=== PATIENT | female | born 1970 | race Caucasian/White ===

== ENCOUNTER → 2017-08-30 11:12 | Outpatient (CLI) | payer OTHER, SELFPAY ==
--- NOTE | 2017-08-30 11:21 | MRI_ITS ---
STUDY: MRI RIGHT SHOULDER REASON FOR EXAM: Female, 47 years old. Pain. Numbness. History of thoracic outlet decompression surgery. TECHNIQUE: Standardized fat and water weighted pulse sequences were obtained in all 3 orthogonal planes. COMPARISON: None. FINDINGS: Normal supraspinatus tendon. There is infraspinatus tendinosis with tendon thickening, but without a demonstrated tendon tear. Normal subscapularis tendon. Normal teres minor tendon. Normal supraspinatus muscle. Normal infraspinatus muscle. Normal subscapularis muscle. Normal teres minor muscle. Normal glenohumeral articulation. Normal humeral head and visualized proximal humerus. Normal biceps labral complex. Normal intracapsular long biceps tendon. Tearing of the anterior labrum, series 3 image 01/23 -03/25. Normal capsulo- ligamentous complex. Normal rotator interval. Normal acromioclavicular articulation. There is a Type II morphology (curved), with a neutral orientation. There is no subacromial-subdeltoid bursal fluid. Normal visualized coracohumeral and coracoacromial ligaments. Normal quadrilateral space. Normal axillary space. Normal deltoid muscle. Normal trapezius muscle. MRI/Upper Ext Joint Only(Routine) IMPRESSION: No rotator cuff tear. Tendinosis of the infraspinatus. Tear of the anterior labrum. Electronically Signed: Jj Daily MD at 20:37 EDT , Service support ,
== END ==
DX: S46.001A Unspecified injury of muscle(s) and tendon(s) of the rotator cuff of right shoulder, initial encounter (principal)
CPT/HCPCS: 73221

== ENCOUNTER → 2018-02-22 09:52 | Outpatient (CLI) | payer BC, MEDICAID, SELFPAY ==
--- NOTE | 2018-02-22 09:57 | NM_ITS ---
CLINICAL: 47-year-old female with reported history of thyroid nodularity. I-123 THYROID UPTAKE and SCAN COMPARISON: Thyroid ultrasound report 06/14/2013 FINDINGS: The patient was administered a 300 uCi I-123 capsule by mouth. The 4-hour I-123 radioactive iodine thyroidal uptake was calculated to be 12.6 % (normal 5 to 25 %). The 24-hour I-123 radioactive iodine thyroidal uptake was calculated to be 37.1 % (normal 5 to 40 %). The I-123 thyroid scan demonstrates relatively homogeneous radiopharmaceutical concentration throughout both lobes of a U-shaped thyroid gland. There are no colloidal parenchymal hypofunctioning cold nodules noted in either lobe of the thyroid gland. NM/Thyroid Uptake Single or Mult IMPRESSION: 1. NORMAL 4- and 24-hour I-123 radioactive iodine thyroidal uptakes. 2. The I-123 thyroid scan is consistent with stage I nodular colloid goiter secondary to the presence of isthmus visualization and the demonstrated U-shaped thyroid gland. (Lamonte et al, J Nucl Med 32: 1455, 1990). 3. No dominant hypofunctioning-cold nodules are identified. Electronically Signed: Santy Campbell DO at 22:48 EDT Tel , Service support ,
== END ==
PROVIDERS: Visit Provider Otolaryngology
DX: E04.2 Nontoxic multinodular goiter (principal)
CPT/HCPCS: 78012; A9516

== ENCOUNTER → 2018-09-01 11:03 | Outpatient (CLI) | payer BC, MEDICAID, SELFPAY ==
--- NOTE | 2018-09-01 11:30 | MRI_ITS ---
STUDY: MRI BRAIN WITH AND WITHOUT CONTRAST (ATTENTION INTERNAL AUDITORY CANALS - I.A.C.'s) REASON FOR EXAM: Female, 48 years old. Worsening dizziness, generalized headaches. TECHNIQUE: Standardized multiplanar fat and water weighted pulse sequences were obtained. 15 IV Dotarem was administered for the contrast portion of the examination. COMPARISON: None. FINDINGS: Normal bilateral temporal bones. Normal bilateral internal auditory canals. There is no demonstrated intracanalicular or cisternal vestibular schwannoma (acoustic neuroma). There is no enhancement of the bilateral VIIth or VIIIth cranial nerves. Normal bilateral cochlea, vestibules and semicircular canals. Normal size of the ventricles and extra-axial spaces for the patient's age. Normal white matter tracts of the supratentorial brain. Normal bilateral basal ganglia. Normal thalami. Normal flow voids within the major intracranial circulation suggesting patency by spin echo criteria. Normal venous enhancement. There is no enhancing intra-axial or extra-axial abnormality. There is no extra-axial fluid accumulation. Normal sella turcica, pituitary gland, infundibular stalk, optic chiasm and hypothalamus. Normal tectal plate and pineal gland. Normal midbrain, edith and medulla. Normal cerebellum. Normal basal cisterns. No demonstrated orbital abnormality, within the constraints of a routine brain study. Normal visualized paranasal sinuses. Normal calvarium and skull base. Normal visualized soft tissue structures. Normal visualized upper cervical spine. MRI/Brain W/WO Contrast IMPRESSION: Normal unenhanced and enhanced MRI of the bilateral internal auditory canals (I.A.C's). Electronically Signed: Jenny Carlos MD at 23:56 EDT Tel , Service support ,
--- NOTE | 2018-09-01 12:20 | NURSING ---
THIS RN CALLED TO MRI TO EVALUATE PT WITH C/O REDNESS TO CHEST WITH ITCHING. REDNESS AND ITCHING ISOLATED TO CHEST, DENIES ANY OTHER SYMPTOMS OF DIFFICULTY SWALLOWING OR SOB. PT DECLINED EVALUATION IN ED. IN AGREEMENT TO TAKE BENADRYL AT HOME IF FELT NECESSARY. WILL BE DRIVING PT HOME AND WITH PT AT HOME.
== END ==
PROVIDERS: Family Provider Nurse Practitioner Adult Health; PCP Nurse Practitioner Adult Health; Referring Provider Otolaryngology; Visit Provider Otolaryngology
DX: R42 Dizziness and giddiness (principal)
CPT/HCPCS: 70553; A9575

== ENCOUNTER → 2018-11-16 13:59 | Outpatient (CLI) | payer OTHER, SELFPAY ==
--- NOTE | 2018-11-16 14:08 | EKG12_ITS ---
Test Reason : PRE OP Blood Pressure : / mmHG Vent. Rate : 078 BPM Atrial Rate : 078 BPM P-R Int : 140 ms QRS Dur : 074 ms QT Int : 374 ms P-R-T Axes : 048 078 053 degrees QTc Int : 426 ms Normal sinus rhythm Normal ECG Confirmed by TEMO RUSS ([id number]), social media editor MALGORZATA SHIPLEY ([id number]) on 11/17/2018 10:00:05 AM Referred By: Tucker Carroll Confirmed By:HARRIS RUSS
[2018-11-16 15:18] LABS: Hemoglobin 12.6 g/dl (12.0-15.0); Mean Corp Hgb Conc 34.1 g/gl (32-36); Mean Corpuscular Hgb 30.9 pg (27.0-32.0); Mean Corpuscular Volume 90.7 fL (81-99); Mean Platelet Vol. 10.4 fl (6.2-12.0); Platelet Count 316 K/mm3 (150-450); RBC Distribution Width CV 11.7 % (11.6-14.6); RBC Distribution Width SD 37.9 fl (35.1-43.9); Red Blood Count 4.08 M/mm3 (4.2-5.4); White Blood Count 10.7 K/mm3 (4.4-11.0)
[2018-11-16 15:20] LABS: Scan Indicated on CBC? Y/N NO
[2018-11-16 16:06] LABS: Anion Gap 6 (5-15); BUN 17 mg/dL (7-18); BUN/Creat Ratio 20.3 RATIO (10-20); Calcium,Total 8.8 mg/dL (8.5-10.1); Chloride 106 mmol/L (98-107); Creatinine, Serum 0.84 mg/dL (0.55-1.02); EST Glomerular Filtration Rate 78 mL/min (>60); Est Glom Filt Rate - Afr Amer 94 mL/min (>60); Glucose 87 mg/dL (74-106); Potassium 3.5 mmol/L (3.5-5.1); Sodium Level 141 mmol/L (136-145)
== END ==
PROVIDERS: Family Provider Nurse Practitioner Adult Health; PCP Nurse Practitioner Adult Health; Referring Provider Physician Assistant; Visit Provider Physician Assistant
DX: I10 Essential (primary) hypertension (principal); Z01.810 Encounter for preprocedural cardiovascular examination
CPT/HCPCS: 36415; 80048; 85027; 93005

== ENCOUNTER 2019-11-23 05:34 | Day surgery (SDC) | payer OTHER, SELFPAY ==
[2019-11-23] VITALS (8 sets, daily range): BP systolic 106–123; BP diastolic 67–85; PULSE 72–82; RESP 14–16; TEMP 36.4–37.1; O2SAT 97–100; BMI 24.0
[2019-11-23] MEDS: Lactated Ringers 1,000 ML 100 ML IV (06:33)
--- NOTE | 2019-11-23 07:44 | PCM.OPRPT ---
Report of Operation Date of Procedure: 11/23/19 Pre-Operative Diagnosis: Post op adhesive capsulitis right shoulder Post-Operative Diagnosis: same Surgery/Procedure Performed:: PAZ right shoulder Type of Anesthesia:: General Anesthesiologist: Tu Cevallos - Admximena VTE Documentation VTE Present on Admission: No VTE Mechan Device Prophylaxis: SCD's, Thigh High BISHNU Hose VTE Pharm Prophylaxis ordered?: No Reason prophylaxis not ordered:: Treatment Not Indicated
== END 2019-11-23 08:21 | disposition home or self-care (01) ==
LOC: SDC 05:37 → AC 05:38
PROVIDERS: Anesthesiology; PCP Nurse Practitioner Adult Health; Referring Provider Orthopaedic Surgery; Visit Provider Orthopaedic Surgery
PROC: (CPT 23700; principal; 2019-11-23 07:25)
DX: M75.01 Adhesive capsulitis of right shoulder (principal); Z11.59 Encounter for screening for other viral diseases; Z87.891 Personal history of nicotine dependence
CPT/HCPCS: 23700; 87635; G2023; J7120; J0702; U0003

== ENCOUNTER → 2019-12-24 09:19 | Outpatient (CLI) | payer OTHER, SELFPAY ==
[2019-11-23 06:20] VITALS: BMI 24.0
[2019-12-24 11:00] LABS: Anion Gap 4 (5-15); BUN 10 mg/dL (7-18); BUN/Creat Ratio 13.3 RATIO (10-20); Calcium,Total 8.4 mg/dL (8.5-10.1); Chloride 114 mmol/L (98-107); Creatinine, Serum 0.75 mg/dL (0.55-1.02); EST Glomerular Filtration Rate 88 mL/min (>60); Est Glom Filt Rate - Afr Amer 106 mL/min (>60); Glucose 97 mg/dL (74-106); Potassium 3.5 mmol/L (3.5-5.1); Sodium Level 143 mmol/L (136-145)
== END ==
PROVIDERS: PCP Nurse Practitioner Adult Health; Referring Provider Nurse Practitioner Family; Visit Provider Nurse Practitioner Family
DX: Z79.899 Other long term (current) drug therapy (principal)
CPT/HCPCS: 36415; 80048

== ENCOUNTER → 2020-04-08 09:25 | Outpatient (CLI) | payer BC, SELFPAY ==
[2020-03-07 10:35] VITALS: BMI 24.0
[2020-04-08 09:59] LABS: Erythrocyte Sedimentation Rate 1 mm/hr (0-20)
[2020-04-08 10:01] LABS: Absolute Lymphocyte Count 1.92 X10^3/uL (0.83-4.51); Absolute Neutrophil Count 8.1 X10^3/uL (2.0-7.7); Basophil# 0.05 X10^3/uL; Basophil% 0.5 % (0-1); Eosinophil# 0.04 X10^3/uL; Eosinophils% 0.4 % (0-5); Hematocrit 40.1 % (37-47); Hemoglobin 12.6 g/dL (12.0-15.0); Lymphocyte # 1.92 X10^3/ul (4.0); Lymphocyte % 18.2 % (19-41); Mean Corp Hgb Conc 31.4 g/dL (32-36); Mean Corpuscular Hgb 31.7 pg (27.0-32.0); Mean Corpuscular Volume 100.8 fL (81-99); Mean Platelet Vol. 9.6 fl (6.2-12.0); Monocyte% 2.8 % (0-10); NRBC Flagged by Analyzer 0 % (0-5); Neutrophil # 8.06 X10^3/uL (2.7-7.7); Neutrophil % 76.2 % (47-70); Platelet Count 389 K/mm3 (150-450); RBC Distribution Width CV 13.8 % (11.6-14.6); RBC Distribution Width SD 51.4 fl (35.1-43.9); Red Blood Count 3.98 M/mm3 (4.2-5.4); White Blood Count 10.6 K/mm3 (4.4-11.0)
[2020-04-08 10:32] LABS: ALB/GLOB Ratio 0.9 RATIO (0.9-2.4); AST(SGOT) 15 U/L (15-37); Alanine Aminotransfer ALT/SGPT 25 U/L (13-56); Albumin, Serum 3.5 g/dL (3.2-5.0); Alkaline Phosphatase 62 U/L (45-117); Anion Gap 4 (5-15); BUN 11 mg/dL (7-18); BUN/Creat Ratio 11.4 RATIO (10-20); Calcium,Total 8.6 mg/dL (8.5-10.1); Chloride 105 mmol/L (98-107); Creatinine, Serum 0.96 mg/dL (0.55-1.02); EST Glomerular Filtration Rate 66 mL/min (>60); Est Glom Filt Rate - Afr Amer 80 mL/min (>60); Globulin 3.7 g/dL (2.2-4.2); Glucose 148 mg/dL (74-106); Potassium 4.1 mmol/L (3.5-5.1); Protein, Total 7.2 g/dL (6.4-8.2); Sodium Level 139 mmol/L (136-145)
== END ==
PROVIDERS: PCP Internal Medicine
DX: K50.90 Crohn's disease, unspecified, without complications (principal)
CPT/HCPCS: 36415; 80053; 85025; 85652

== ENCOUNTER → 2020-05-28 13:05 | Outpatient (CLI) | payer BC, SELFPAY ==
[2020-03-07 10:35] VITALS: BMI 24.0
[2020-06-01 16:07] LABS: QNTFERON TB Mitogen Value > 10.00 IU/mL (.); QNTFERON TB Nil Value 0.05 IU/mL (.); QNTFERON TB1+ Ag Value 0.09 IU/mL (.); QNTFERON TB2+ Ag Value 0.06 IU/mL (.)
[2020-06-02 09:41] LABS: QNTIFERON TB Positive Criteria Negative (Negative)
== END ==
PROVIDERS: PCP Internal Medicine
DX: K50.90 Crohn's disease, unspecified, without complications (principal); S50.851A Superficial foreign body of right forearm, initial encounter; Z11.7 Encounter for testing for latent tuberculosis infection
CPT/HCPCS: 36415; 86480

== ENCOUNTER → 2020-07-03 12:55 | Outpatient (CLI) | payer BC, SELFPAY ==
[2020-06-13 10:57] VITALS: BMI 23.6
--- NOTE | 2020-07-03 13:05 | BI_ITS ---
MAMMOGRAPHY - BILATERAL SCREENING REASON FOR EXAM: Female, 50 years old. Routine annual screening examination. PERTINENT HISTORY: Sister with breast cancer. Grandmother with breast cancer. History of bilateral excisional breast biopsies. TECHNIQUE: Digital bilateral breast tish (3D mammographic acquisition) in the CC and MLO projections. 2-D mediolateral oblique (MLO) and craniocaudad (CC) views of both breasts were obtained. CAD: Full Field Digital Mammography with Computer Added Detection was performed. COMPARISON: Comparison is made with prior abdomen examination dated 05/10/2019. FINDINGS: Breast Composition: The breasts are extremely dense, which lowers the sensitivity of mammography. There are no dominant masses or suspicious calcifications. No other significant abnormalities are identified. There has been no significant change since the prior study. BI/SCRN MAMM (CAD)W/TISH BILAT IMPRESSION: Stable bilateral screening mammogram. Yearly follow-up mammogram recommended. (A) ASSESSMENT CATEGORY: BIRADS Category 1: Negative. A letter regarding these results will be sent to the patient by the facility within 30 days. Approximately 10% of breast cancers are not detected by mammography. A normal mammogram should not delay biopsy of a clinically suspicious abnormality. [id number] Electronically Signed: Franck Verdugo MD at 8:39 EST , Service support ,
--- NOTE | 2020-07-03 13:06 | BD_ITS ---
STUDY: DUAL ENERGY X-RAY ABSORPTIOMETRY / DXA REASON FOR EXAM: Female, 50 years old. 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 COMPARISON: None. FINDINGS: Lumbar Spine (L1-L4): g/cm2 (1.151) / T-score (-0.1) / Z-score (0.1) Findings are suggestive of normal bone density with a low fracture risk. Left Femur Total: g/cm2 (0.945) / T-score (-0.5) / Z-score (-0.1) Left Femoral Neck: g/cm2 (0.835) / T-score (-1.5) / Z-score (-0.8) Right Femur Total: g/cm2 (1.035) / T-score (0.2) / Z-score (0.6) Right Femoral Neck: g/cm2 (0.910) / T-score (-0.9) / Z-score (0.2) BD/Dexa Bone Density Study IMPRESSION: The patient is considered osteopenic as outlined below according to World [employer] Organization (WHO) criteria with a low fracture risk. Reference Information: The T-score is the number of standard deviations above or below the standard which is normal for young adults at their peak bone mineral density. The World Health Organization (WHO) interprets the T-scores as follows: Above -1 Normal bone density Between -1 and -2.5 Osteopenia Equal to / or below -2.5 Osteoporosis As a practical clinical guideline, osteopenia may be graded as follows: Mild -1 through -1.5 Moderate -1.6 through -2.0 Severe -2.1 through -2.4 The Z-score is the number of standard deviations above or below age-matched controls. A Z-score of less than -1.5 would be considered abnormal. References: 1. NIH Osteoporosis and Related Bone Diseases www osteo.org 2. International Society for Clinical Densitometry www iscd.org 3. National Osteoporosis Foundation www nof.org Electronically Signed: Franck Verdugo MD at 14:38 EST , Service support ,
== END ==
PROVIDERS: PCP Internal Medicine; Referring Provider Internal Medicine; Visit Provider Internal Medicine
DX: Z12.31 Encounter for screening mammogram for malignant neoplasm of breast (principal); Z80.3 Family history of malignant neoplasm of breast; Z79.52 Long term (current) use of systemic steroids
CPT/HCPCS: 77063; 77067; 77080

== ENCOUNTER → 2020-07-11 11:34 | Outpatient (CLI) | payer BC, SELFPAY ==
[2020-07-11 10:59] VITALS: BMI 25.8
[2020-07-11 12:25] LABS: Erythrocyte Sedimentation Rate < 1 mm/hr (0-30)
[2020-07-11 12:27] LABS: Absolute Lymphocyte Count 1.75 X10^3/uL (0.83-4.51); Absolute Neutrophil Count 6.4 X10^3/uL (2.0-7.7); Basophil# 0.03 X10^3/uL; Basophil% 0.4 % (0-1); Hematocrit 39.8 % (37-47); Lymphocyte # 1.75 X10^3/ul (4.0); Lymphocyte % 20.6 % (19-41); Mean Corp Hgb Conc 32.7 g/dL (32-36); Mean Corpuscular Hgb 30.5 pg (27.0-32.0); Mean Corpuscular Volume 93.4 fL (81-99); Mean Platelet Vol. 10.1 fl (6.2-12.0); Monocyte# 0.23 X10^3/uL; Monocyte% 2.7 % (0-10); NRBC Flagged by Analyzer 0 % (0-5); Neutrophil % 75.4 % (47-70); Platelet Count 309 K/mm3 (150-450); RBC Distribution Width CV 12.3 % (11.6-14.6); RBC Distribution Width SD 42.2 fl (35.1-43.9); Red Blood Count 4.26 M/mm3 (4.2-5.4); White Blood Count 8.5 K/mm3 (4.4-11.0)
[2020-07-11 13:10] LABS: ALB/GLOB Ratio 1.1 RATIO (0.9-2.4); AST(SGOT) 20 U/L (15-37); Alanine Aminotransfer ALT/SGPT 30 U/L (13-56); Albumin, Serum 3.7 g/dL (3.2-5.0); Alkaline Phosphatase 61 U/L (45-117); Anion Gap 5 (5-15); BUN 15 mg/dL (7-18); BUN/Creat Ratio 14.4 RATIO (10-20); Calcium,Total 9.2 mg/dL (8.5-10.1); Chloride 102 mmol/L (98-107); Creatinine, Serum 1.04 mg/dL (0.55-1.02); EST Glomerular Filtration Rate 60 mL/min (>60); Est Glom Filt Rate - Afr Amer 73 mL/min (>60); Globulin 3.4 g/dL (2.2-4.2); Glucose 108 mg/dL (74-106); Potassium 3.9 mmol/L (3.5-5.1); Protein, Total 7.1 g/dL (6.4-8.2); Sodium Level 138 mmol/L (136-145)
== END ==
PROVIDERS: PCP Internal Medicine
DX: K50.90 Crohn's disease, unspecified, without complications (principal)
CPT/HCPCS: 36415; 80053; 85025; 85652

== ENCOUNTER → 2020-10-21 13:06 | Outpatient (CLI) | payer BC, SELFPAY ==
[2020-10-10 10:22] VITALS: BMI 24.0
[2020-10-21 15:28] LABS: Absolute Lymphocyte Count 3.01 X10^3/uL (0.83-4.51); Absolute Neutrophil Count 2.3 X10^3/uL (2.0-7.7); Basophil# 0.03 X10^3/uL; Basophil% 0.5 % (0-1); Eosinophil# 0.07 X10^3/uL; Eosinophils% 1.2 % (0-5); Hematocrit 36.9 % (37-47); Hemoglobin 12.2 g/dL (12.0-15.0); Lymphocyte # 3.01 X10^3/ul (0.83-4.51); Lymphocyte % 50.9 % (19-41); Mean Corp Hgb Conc 33.1 g/dL (32-36); Mean Corpuscular Volume 90.9 fL (81-99); Mean Platelet Vol. 10.4 fl (6.2-12.0); Monocyte# 0.46 X10^3/uL; Monocyte% 7.8 % (0-10); NRBC Flagged by Analyzer 0 % (0-5); Neutrophil # 2.33 X10^3/uL (2.7-7.7); Neutrophil % 39.4 % (47-70); Platelet Count 313 K/mm3 (150-450); RBC Distribution Width CV 11.9 % (11.6-14.6); Red Blood Count 4.06 M/mm3 (4.2-5.4); White Blood Count 5.9 K/mm3 (4.4-11.0)
[2020-10-21 15:45] LABS: ALB/GLOB Ratio 1.2 RATIO (0.9-2.4); AST(SGOT) 22 U/L (15-37); Alanine Aminotransfer ALT/SGPT 24 U/L (13-56); Albumin, Serum 3.8 g/dL (3.2-5.0); Alkaline Phosphatase 52 U/L (45-117); Anion Gap 4 (5-15); BUN 13 mg/dL (7-18); BUN/Creat Ratio 15.2 RATIO (10-20); Calcium,Total 8.8 mg/dL (8.5-10.1); Chloride 106 mmol/L (98-107); Creatinine, Serum 0.86 mg/dL (0.55-1.02); EST Glomerular Filtration Rate 75 mL/min (>60); Est Glom Filt Rate - Afr Amer 91 mL/min (>60); Globulin 3.1 g/dL (2.2-4.2); Glucose 80 mg/dL (74-106); Potassium 3.8 mmol/L (3.5-5.1); Protein, Total 6.9 g/dL (6.4-8.2); Sodium Level 141 mmol/L (136-145)
[2020-10-21 15:51] LABS: Erythrocyte Sedimentation Rate < 1 mm/hr (0-30)
== END ==
PROVIDERS: PCP Internal Medicine
DX: K50.90 Crohn's disease, unspecified, without complications (principal)
CPT/HCPCS: 36415; 80053; 85025; 85652

== ENCOUNTER → 2020-11-18 10:03 | Outpatient (CLI) | payer OTHER, BC, SELFPAY ==
[2020-10-10 10:22] VITALS: BMI 24.0
[2020-11-11 10:41] VITALS: BMI 24.0
--- NOTE | 2020-11-18 11:00 | RAD_ITS ---
CLINICAL HISTORY: Female, 50 years old. Right shoulder pain. Superior glenoid labral tear. PROCEDURE: ARTHROGRAM - RIGHT SHOULDER. CONSENT: The procedure as well as the benefits and possible complications including infection and bleeding were expanded to the patient. Informed consent was obtained. FLUOROSCOPY TIME (if supplied): (30 seconds) minutes/seconds Injection Information: 10 cc of dilute MRI contrast. Number of images obtained: 4 TECHNIQUE: (All elements of maximal sterile barrier technique followed, including US elements as applicable) The patient was in the supine position. Skin was prepped and draped in the usual sterile fashion. Following local anesthetic application in the direct fluoroscopic guidance, a 22-gauge spinal needle was placed into the shoulder joint. 2 cc of ISOVUE 300 was injected for localization. Following this, 10 cc of dilute MRI contrast was injected. The patient tolerated the procedure well. RAD/Arthrogram Shoulder w/ MRI IMPRESSION: Successful right shoulder arthrogram for MRI examination. The patient tolerated the procedure well. Electronically Signed: Franck Verdugo MD at 12:16 EDT , Service support ,
--- NOTE | 2020-11-18 11:30 | MRI_ITS ---
STUDY: MR RIGHT SHOULDER ARTHROGRAPHY REASON FOR EXAM: Right shoulder pain extending into the scapula since 2011, prior surgeries. TECHNIQUE: Standardized fat and water weighted pulse sequences were obtained in all 3 orthogonal planes after intra-articular instillation of 0.08 mL of dilute Dotarem. COMPARISON: MRI images 08/30/2017 and arthrogram images preceding the MRI. FINDINGS: There is mild supraspinatus and infraspinatus tendinosis (T2 sagittal images 6, 7) without intravasation of contrast to indicate tendon tear. Normal subscapularis tendon. Normal teres minor tendon. Normal supraspinatus muscle. Normal infraspinatus muscle. Normal subscapularis muscle. Normal teres minor muscle. Normal glenohumeral articulation. There is an anchor in the superior aspect of the humeral head. The biceps tenodesis appears intact. Normal labrum. Normal capsulo- ligamentous complex. Normal rotator interval. Status post subacromial decompression/excision of the distal clavicle. There is no subacromial-subdeltoid bursal fluid. Normal deltoid muscle. Normal trapezius muscle. MRI/Upper Ext Jt Only W/Contrast IMPRESSION: Mild supraspinatus and infraspinatus tendinosis without demonstrated rotator cuff tear. Intact biceps tenodesis. No demonstrated labral tear. Electronically Signed: Ronal Rodriguez MD at 12:36 EDT Tel , Service support ,
== END ==
PROVIDERS: PCP Internal Medicine; Visit Provider Orthopaedic Surgery
DX: S43.431A Superior glenoid labrum lesion of right shoulder, initial encounter (principal)
CPT/HCPCS: 23350; 73222; 77002; A9575; Q9967

== ENCOUNTER → 2021-02-10 13:41 | Outpatient (CLI) | payer BC, SELFPAY | PROVIDERS: PCP Internal Medicine; Referring Provider Internal Medicine; Visit Provider Internal Medicine | DX: J06.9 Acute upper respiratory infection, unspecified (principal) | CPT/HCPCS: 87635; U0005; U0003 ==

== ENCOUNTER → 2021-03-13 15:34 | Outpatient (CLI) | payer BC, SELFPAY ==
[2021-03-13 17:04] LABS: AST(SGOT) 26 U/L (15-37); Alanine Aminotransfer ALT/SGPT 34 U/L (13-56); Albumin, Serum 3.6 g/dL (3.2-5.0); Alkaline Phosphatase 57 U/L (45-117); Anion Gap 4 (5-15); BUN 18 mg/dL (7-18); BUN/Creat Ratio 21.7 RATIO (10-20); Calcium,Total 8.8 mg/dL (8.5-10.1); Chloride 107 mmol/L (98-107); Creatinine, Serum 0.83 mg/dL (0.55-1.02); EST Glomerular Filtration Rate 78 mL/min (>60); Est Glom Filt Rate - Afr Amer 94 mL/min (>60); Globulin 3.6 g/dL (2.2-4.2); Glucose 88 mg/dL (74-106); Potassium 4.1 mmol/L (3.5-5.1); Protein, Total 7.2 g/dL (6.4-8.2); Sodium Level 141 mmol/L (136-145); T4 Free Direct 0.69 ng/dL (0.76-1.46); Thyroid Stim Hormone (TSH) 0.73 uIU/mL (0.358-3.74)
[2021-03-13 17:05] LABS: BNP,B-Type NATRIURETIC PEPTIDE 7.5 pg/mL (0-100)
== END ==
PROVIDERS: PCP Internal Medicine; Referring Provider Internal Medicine; Visit Provider Internal Medicine
DX: Z13.29 Encounter for screening for other suspected endocrine disorder (principal); R60.9 Edema, unspecified; K51.90 Ulcerative colitis, unspecified, without complications
CPT/HCPCS: 36415; 80053; 83880; 84439; 84443

== ENCOUNTER → 2021-04-03 12:12 | Outpatient (CLI) | payer BC, SELFPAY ==
[2021-04-03 15:05] LABS: Erythrocyte Sedimentation Rate 2 mm/hr (0-30)
[2021-04-03 15:06] LABS: Absolute Lymphocyte Count 2.47 X10^3/uL (0.83-4.51); Absolute Neutrophil Count 2.6 X10^3/uL (2.0-7.7); Basophil# 0.03 X10^3/uL; Basophil% 0.5 % (0-1); Eosinophil# 0.18 X10^3/uL; Eosinophils% 3.2 % (0-5); Hematocrit 38.4 % (37-47); Hemoglobin 12.6 g/dL (12.0-15.0); Lymphocyte # 2.47 X10^3/ul (0.83-4.51); Lymphocyte % 43.4 % (19-41); Mean Corp Hgb Conc 32.8 g/dL (32-36); Mean Corpuscular Hgb 30.4 pg (27.0-32.0); Mean Corpuscular Volume 92.5 fL (81-99); Mean Platelet Vol. 10.9 fl (6.2-12.0); Monocyte# 0.43 X10^3/uL; Monocyte% 7.6 % (0-10); NRBC Flagged by Analyzer 0 % (0-5); Neutrophil # 2.56 X10^3/uL (2.7-7.7); Neutrophil % 44.9 % (47-70); Platelet Count 298 K/mm3 (150-450); RBC Distribution Width CV 11.4 % (11.6-14.6); RBC Distribution Width SD 39.1 fl (35.1-43.9); Red Blood Count 4.15 M/mm3 (4.2-5.4); White Blood Count 5.7 K/mm3 (4.4-11.0)
[2021-04-03 15:41] LABS: AST(SGOT) 28 U/L (15-37); Alanine Aminotransfer ALT/SGPT 41 U/L (13-56); Albumin, Serum 3.7 g/dL (3.2-5.0); Alkaline Phosphatase 70 U/L (45-117); Anion Gap 5 (5-15); BUN 11 mg/dL (7-18); BUN/Creat Ratio 11.9 RATIO (10-20); Chloride 104 mmol/L (98-107); Creatinine, Serum 0.92 mg/dL (0.55-1.02); EST Glomerular Filtration Rate 69 mL/min (>60); Est Glom Filt Rate - Afr Amer 83 mL/min (>60); Globulin 3.7 g/dL (2.2-4.2); Glucose 96 mg/dL (74-106); Potassium 3.8 mmol/L (3.5-5.1); Protein, Total 7.4 g/dL (6.4-8.2); Sodium Level 139 mmol/L (136-145)
== END ==
PROVIDERS: PCP Internal Medicine
DX: K50.90 Crohn's disease, unspecified, without complications (principal)
CPT/HCPCS: 36415; 80053; 85025; 85652

== ENCOUNTER → 2021-04-10 11:04 | Outpatient (CLI) | payer BC, SELFPAY | PROVIDERS: PCP Internal Medicine; Referring Provider Physician Assistant Surgical; Visit Provider Physician Assistant Surgical | DX: U07.1 COVID-19 (principal) | CPT/HCPCS: 87635; U0005; U0003 ==

== ENCOUNTER 2021-07-13 09:23 | Outpatient (CLI) | payer BC, SELFPAY ==
[2021-07-13 12:17] LABS: Absolute Lymphocyte Count 2.82 X10^3/uL (0.83-4.51); Absolute Neutrophil Count 2.8 X10^3/uL (2.0-7.7); Basophil# 0.05 X10^3/uL; Basophil% 0.8 % (0-1); Eosinophil# 0.17 X10^3/uL; Eosinophils% 2.7 % (0-5); Hematocrit 35.9 % (37-47); Hemoglobin 12.2 g/dL (12.0-15.0); Lymphocyte # 2.82 X10^3/ul (0.83-4.51); Lymphocyte % 44.1 % (19-41); Mean Corpuscular Hgb 30.3 pg (27.0-32.0); Mean Corpuscular Volume 89.3 fL (81-99); Mean Platelet Vol. 10.9 fl (6.2-12.0); Monocyte% 7.8 % (0-10); NRBC Flagged by Analyzer 0 % (0-5); Neutrophil # 2.83 X10^3/uL (2.7-7.7); Neutrophil % 44.3 % (47-70); Platelet Count 295 K/mm3 (150-450); RBC Distribution Width CV 12.3 % (11.6-14.6); RBC Distribution Width SD 40.5 fl (35.1-43.9); Red Blood Count 4.02 M/mm3 (4.2-5.4); White Blood Count 6.4 K/mm3 (4.4-11.0)
[2021-07-13 12:33] LABS: ALB/GLOB Ratio 0.9 RATIO (0.9-2.4); AST(SGOT) 32 U/L (15-37); Alanine Aminotransfer ALT/SGPT 42 U/L (13-56); Albumin, Serum 3.6 g/dL (3.2-5.0); Alkaline Phosphatase 74 U/L (45-117); Anion Gap 5 (5-15); BUN 14 mg/dL (7-18); BUN/Creat Ratio 17.4 RATIO (10-20); Calcium,Total 8.8 mg/dL (8.5-10.1); Chloride 105 mmol/L (98-107); EST Glomerular Filtration Rate 80 mL/min (>60); Est Glom Filt Rate - Afr Amer 97 mL/min (>60); Globulin 3.8 g/dL (2.2-4.2); Glucose 92 mg/dL (74-106); Potassium 3.8 mmol/L (3.5-5.1); Protein, Total 7.4 g/dL (6.4-8.2); Sodium Level 139 mmol/L (136-145)
== END 2021-07-13 23:59 | disposition home or self-care (01) ==
LOC: BIMLAB 09:24
PROVIDERS: PCP Internal Medicine; Referring Provider Internal Medicine; Visit Provider Internal Medicine
DX: K51.90 Ulcerative colitis, unspecified, without complications (principal)
CPT/HCPCS: 36415; 80053; 85025

== ENCOUNTER 2021-07-17 13:43 | Outpatient (CLI) | payer BC, SELFPAY ==
--- NOTE | 2021-07-17 13:45 | RAD_ITS ---
STUDY: X-RAY - PELVIS AND BILATERAL HIP REASON FOR EXAM: Female, 51 years old. Bilateral Hip Pain TECHNIQUE: XR Hips Bilateral with Pelvis when performed; 2 Views COMPARISON: None. FINDINGS: There is a non-specific bowel gas pattern. Normal visualized soft tissue structures. Normal bilateral iliac wings, sacroiliac joints and visualized sacrum. Normal bilateral superior and inferior pubic rami. Normal pubic symphysis. Normal bilateral ischial tuberosities. Normal visualized femoral head. Normal acetabulum. Normal hip joint. RAD/Hips B/L min 2 views w/ Pelvis IMPRESSION: No acute findings. Electronically Signed: Clifton Wagner MD at 20:20 EST ,
== END 2021-07-17 23:59 | disposition home or self-care (01) ==
LOC: MTRAD 13:45
PROVIDERS: PCP Internal Medicine; Referring Provider Internal Medicine; Visit Provider Internal Medicine
DX: M25.551 Pain in right hip (principal); M25.552 Pain in left hip
CPT/HCPCS: 73521

== ENCOUNTER 2021-08-21 06:26 | Outpatient (CLI) | payer BC, SELFPAY ==
--- NOTE | 2021-08-21 06:33 | MRI_ITS ---
STUDY: MRI BILATERAL HIPS T PELVIS WITH AND WITHOUT CONTRAST REASON FOR EXAM: Bilateral hip pain for 6 months, no specific injury. TECHNIQUE: Standardized fat and water weighted pulse sequences were obtained in all 3 orthogonal planes before and after intravenous administration of 14 mL of Dotarem. COMPARISON: Radiographs 07/17/2021. FINDINGS: RIGHT HIP Normal hip joint without articular joint space narrowing. Normal right acetabulum. Normal right labrum. Normal right femoral head. Normal right femoral neck and intratrochanteric region. There is peritendinitis of the right gluteus minimus tendon (inversion recovery coronal image 18) with contrast enhancement of the peritendinitis (postcontrast T1 coronal image 18). Normal right gluteus medius and iliopsoas tendons and distal insertions. Normal right superior and inferior pubic rami. Normal right pubic symphysis. Normal right ischial tuberosity. There is peritendinitis of the right semimembranosus tendon (T2 axial image 32) with contrast enhancement of the peritendinitis (postcontrast T1 axial image 32). Normal visualized right iliac wing, sacroiliac joint, and sacral ala. Normal visualized soft tissue structures of the pelvis. LEFT HIP Normal left hip joint without articular joint space narrowing. Normal left acetabulum. Normal left labrum. Normal left femoral head. Normal left femoral neck and intratrochanteric region. There is peritendinitis of the left gluteus minimus tendon (inversion recovery coronal image 17) with contrast enhancement of the peritendinitis (inversion T1 coronal image 17). Normal left gluteus medius and iliopsoas tendons and distal insertions. Normal left superior and inferior pubic rami. Normal left pubic symphysis. Normal left ischial tuberosity. There is peritendinitis of the left semimembranosus tendon (T2 axial image 32) with contrast enhancement of the peritendinitis (postcontrast T1 axial image 32) and a small low-grade partial tear of the left semimembranosus tendon (T2 axial image 33). Normal visualized left iliac wing, sacroiliac joint, and sacral ala. Normal visualized soft tissue structures of the pelvis. MRI/Pelvis W/WO Contrast IMPRESSION: Peritendinitis of the gluteus minimus tendons bilaterally. Peritendinitis of the semimembranosus tendons bilaterally and a small low-grade partial tear of the left semimembranosus tendon. Electronically Signed: Ronal Rodriguez MD at 14:46 EDT ,
== END 2021-08-21 23:59 | disposition home or self-care (01) ==
PROVIDERS: PCP Internal Medicine; Visit Provider Orthopaedic Surgery
DX: M25.551 Pain in right hip (principal); K51.919 Ulcerative colitis, unspecified with unspecified complications; M25.552 Pain in left hip; R10.9 Unspecified abdominal pain; R19.00 Intra-abdominal and pelvic swelling, mass and lump, unspecified site
CPT/HCPCS: 72197; A9575

== ENCOUNTER → 2021-09-23 | Outpatient (CLI) | payer BC, SELFPAY ==
[2021-09-23 15:58] LABS: Mucous, Urine 0 SEEN /hpf (<or=2+); Red Blood Cells-Urine 0 SEEN /hpf (0-5)
[2021-09-23 16:59] LABS: Color, Urine Yellow (Yellow); Glucose, Dipstick Normal (Normal); Ketone-Dipstick Negative (Negative); Leukocyte Esterase-Dipstick 25 /ul (Negative); Nitrite-Dipstick Positive (Negative); Occult Blood-Urine Negative /ul (Negative); Protein-Dipstick Negative (Negative); Urine Clarity Clear (Clear); Urine Urobilinogen 1 mg/dl (Normal)
[2021-09-23 17:01] LABS: Urine Bilirubin Dipstick 1 mg/dL (Negative)
[2021-09-23 17:06] LABS: Bacteria RARE /hpf (None Seen); Squamous Epithelial Cells - UA 0-5 SEEN /hpf (5-10); White Blood Cells 0-5 SEEN /hpf (0-5)
== END | disposition home or self-care (01) ==
LOC: LABSPEC 15:48
PROVIDERS: PCP Internal Medicine; Visit Provider Physician Assistant
DX: R30.0 Dysuria (principal); R35.0 Frequency of micturition
CPT/HCPCS: 81001; 87086; 87088

== ENCOUNTER → 2021-10-02 | Outpatient (CLI) | payer BC, SELFPAY ==
[2021-10-02 14:55] LABS: Mucous, Urine 0 SEEN /hpf (<or=2+); Red Blood Cells-Urine 0 SEEN /hpf (0-5)
[2021-10-02 16:46] LABS: Color, Urine Yellow (Yellow); Glucose, Dipstick Normal (Normal); Ketone-Dipstick Negative (Negative); Leukocyte Esterase-Dipstick 25 /ul (Negative); Nitrite-Dipstick Negative (Negative); Occult Blood-Urine Negative /ul (Negative); Protein-Dipstick Negative (Negative); Specific Gravity, Urine 1.015 (1.002-1.030); Urine Bilirubin Dipstick Negative (Negative); Urine Clarity Clear (Clear); Urine Urobilinogen Normal (Normal); Urine pH 6.5 (5.0 - 8.0)
[2021-10-02 16:55] LABS: Bacteria RARE /hpf (None Seen); Squamous Epithelial Cells - UA 0-5 SEEN /hpf (5-10); White Blood Cells 0-5 SEEN /hpf (0-5)
== END | disposition home or self-care (01) ==
LOC: LABSPEC 14:54
PROVIDERS: PCP Internal Medicine; Referring Provider Physician Assistant; Visit Provider Physician Assistant
DX: R30.0 Dysuria (principal)
CPT/HCPCS: 81001; 87086; 87088

== ENCOUNTER 2022-03-05 09:01 | Outpatient (RCR) | payer OTHER, BC, SELFPAY ==
--- NOTE | 2022-03-09 08:12 | HP.OTFCE_ITS ---
Floor (Occasional 1-33% of Day): 30# Floor (Frequent 34-66% of Day): NA Floor (Constant 67-100% of Day): NA Floor PDL: Light-Medium Knee (Occasional 1-33% of Day): 30# Knee (Frequent 34-66% of Day): NA Knee (Constant 67-100% of Day): NA Knee PDL: Light-Medium Waist (Occasional 1-33% of Day): 30# Waist (Frequent 34-66% of Day): NA Waist (Constant 67-100% of Day): NA Waist PDL: Light Shoulder (Occasional 1-33% of Day): 20# Shoulder (Frequent 34-66% of Day): NA Shoulder (Constant 67-100% of Day): NA Shoulder PDL: Light-Medium Overhead (Occasional 1-33% of Day): 12.5# Overhead (Frequent 34-66% of Day): NA Overhead (Constant 67-100% of Day): NA Overhead PDL: Sedentary Comments: LIGHT - MEDIUM PHYSICAL DEMAND LEVEL for lifting at floor, knee, and waist levels. LIGHT PHYSICAL DEMAND LEVEL for lifting at shoulder levels. SEDENTARY PYSICAL DEMAND LEVEL for lifting overhead. due to pts symptoms no frequent or constant ability is NA Bending: Occasional Ability (1-33% of day) Squatting: Occasional Ability (1-33% of day) Kneeling: Occasional Ability (1-33% of day) Comments: with use of external support Reaching out: Occasional Ability (1-33% of day) Comments: allowing for frequent breaks with RU based on symptoms Reaching up: Occasional Ability (1-33% of day) Comments: allowing for frequent breaks with RU based on symptoms Sitting: Occasional Ability (1-33% of day) Walking: Occasional Ability (1-33% of day) Standing: Occasional Ability (1-33% of day) Duration Sedentary Sedentary Light Light Light Medium Medium Medium Heavy Very Heavy Heavy Occasional (0-33% of day) Frequent (34-66% of day) Constant (67-100% of day) 10 # Negligible Negligible 15 # 8 # Negligible 20 # 10# Negli. 35 # 18 # 7 # 50 # 25 # 10 # 75 # 100 # >100 # 38 # 50 # >50 # 15 # 20 # >20 # Weight:: 74.389 kg Hand Dominance: right Medical History Including Restrictions: pt states she was in good health until she started to feel right arm heaviness and numbness in her hand and dropping items- pt states she can not remember is she did anything about the symptoms on her own. But in 2011 she felt she could not do her job because of her symptoms. Pt states she went to see Dr. Hernandez and he removed her from work. pt states she has been off work since 2012- pt states she has undergone a number of different test and surgical procedures to improver her symptoms. (Physical therapy last in Physical therapy) massage therapy-) pt started to see pain management but does not know when she started seeing them. Pt states she has noticed because she has been in pain mtg. the affect of medication is not as affective - states she is working with and workers comp. to get injections into the shoulder- pt is not sure what kind of medication this will be, but is hopeful she will have increased relief to tolerate more daily tasks. pt current medication oxycodone - Muli-vit. and Advil/Tylenol trasadone for sleeping - venlafaxine (for depression and hot flashes). pt did mention she was wondering if a implanted nerve stimulated would help her in he situation- ( advised to speak with her pain mtg. Doctor). pt states she has had x-rays on her hips due to pain-. pt also states she has osteopenia. pt states she does have a treadmill at home she tries to do some walking exercise as she can tolerate. Diagnoses: Brachial plexus disorder dx 2013 symptoms started 2011. Biomechan ical lesion of thoracic region (not sure when it was dx). Muscle/tendon right rotator cuff ( pt not sure when dx). superior glenoid labrum lesion right shoulder (pt not sure when dx). Adhesive capsulitis right shoulder (pt not sure). Primary osteoarthritis right shoulder. right shoulder instability. Depression (not sure when she was dx). Depression Symptoms: Right shoulder Pain. Burning in he arm pit (axillary region). numbness in right UE. pins and needles in right shoulder/hand. weakness. swelling in axillary area Pain: pt currently reports 7/10 -. pt states she has inclined mattress to assist in pain mtg of her shoulder. massage chair to decrease muscle spasms-. ice packs. Pt states she does not like taking a lot of pain medication and is down to taking prescription medication Oxycodone 3 x a day and between her prescription medication she takes Tylenol or Advil. Short-Form Natasha Pain Questionnaire score 40/45. The Short-Form Natasha Pain Questionnaire (SF-MPQ) was originally published in the journal Pain in 1987. It is used a test for the measurement of pain. The measure is calculated by summing the point values for responses to 15 questions. Questions 1-11 deal with the sensory dimension of pain (i.e., the quality of the pain). Questions 12-15 deal with the affective dimension of pain (i.e., how the pain affects you). Subscores for the sensory and affective dimensions are calculated, in addition to a total Natasha Pain Score. In addition, there is a visual analogue scale for pain and a final question about pain intensity. Higher scores generally correspond to an worsened subjective experience of pain. Geo Herring. The short-form Natasha pain questionnaire. Pain 30.2 (1987): 191-197. 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 pt states she has had difficulty with sitting in chairs with out supporting her upper back- but pt states the log yard manager was able to find a chair with higher back this is more comfortable. pt states her right UE increase symptoms of tingling around her shoulder and will get a pocket of edema in her right arm pit- pt states fatigue of her right forearm as well. pt states she is struggling with being at work for 8 hours -(9 hours with her hour lunch) and when she returns home after her work day she is to painful to perform any tasks IE making dinner- laundry etc. Behavioral: Pt cooperative throughout assessment and put good effort into all tasks asked of her. Pt demo holding her breath throughout requested tasks and heart rate would increase 164 at times but return to a low 100 to high 90s following a few deep breaths. ADLS: Pt lives in a two story home with her 3 children and . Pt states there are 4 entry with 1 handrail _pt reports no difficulty getting in or out of her home- pt states her bedroom and bathroom are on second floor - bathroom show er is walking- pt states she she can bath but uses a head scrubber because she can not use her right hand to wash her hair-(pt states she had to cut her hair short due to the difficulty she was having washing long hair) Pt states she is IND. with dress . pt states she can drive IND. pt states she can do her grocery shopping on days she is not painful- pt states she can do her yard work with compensation using left UE as able as mulch and weeding- does lawn mowing and weed wacking- pt does dishes IND- children do their own laundry- pt does her and her own laundry- does vacuum- pt was cooking IND. but since she has returned to work she has not been able to deep fat cook fry at night or do much due to pain/ muscle spasms/burning nerve pain etc. Physical Examination: pt resting heart rate 84 ROM: pt demo ROM WNL. pt states with right has increase in pain after raising right arm over head- Strength: tested on Fet2 peak force. right shoulder flexion 10# left 14#. right shoulder extension 24# left 29#. right triceps 15# left 13#. right biceps 14# left 22#. right hip flexion 35# left 33#. right quad 26# left 22#. right hamstring 24# left 22#. pt demo a decrease in right UE strength compared to unaffected side Right Helicopter Utility Aircrewman Strength Average: 56.33 Right Helicopter Utility Aircrewman Strength Percentile: 16% Left Helicopter Utility Aircrewman Strength Average: 81.66 Left Helicopter Utility Aircrewman Strength Percentile: 79% Right Lateral Pinch Average: 10.00 Right Lateral Pinch Percentile: 25% Left Lateral Pinch Average: 10.33 Left Lateral Pinch Percentile: 25% Right Tripod Pinch Average: 10.66 Right Tripod Pinch Percentile: 25% Left Tripod Pinch Average: 16.66 Left Tripod Pinch Percentile: 90% Comments: pt demo resting hear rate at 84. pt ambulates with guarded posture with right UE close to her body. pt put good effort into requested tasks. pt stated more she used her right UE more numbness occurred in her right hand. Phone call for follow up was completed on Tuesday03/08/22 to see how pt was following her assessment-. pt stated nerve pain was very intense on Tuesday 02/13 and was unable to do any daily task. (3 days following assessment this is typically most painful day after assessment). pt states she struggled with muscle spasms and tight muscles up in trap region and shoulder- pt attempted to use ice and Advil. pt states swelling of entire right UE into hand and still present today (4 days after her assessment). Sensation: pt reports tingling on right shoulder that radiates down her arm with increase use- pt reports numbness on the back of her shoulder and triceps region) states with increase use hand will go numb- Fine Motor: Purdue peg board. right post placement 30sec. 15 pieces =12%. left post placement 30sec. 12 pieces =2%. Bilateral pairs 30sec. 44 pieces = 12%. Assembly 60sec. 24 pieces. =5%. pt demo with a below average for finger manipulation Balance: Functional Reach to 13 pt demo good functional balance. Left arm out right arm at her side. Interpretation: A score of 6 or less indicates a significant. increased risk for falls. A score between 6-10 inches indicates a. moderate risk for falls. Bending: pt demo the ability to bend forward 3/3x, 10/10x followed with 10/10 rapidly pt did use external support due to feeling dizzy. heart rate increased to 120. pt can bend forward on occasional ability. Squatting: pt demo the ability to squat 3/3x - 10/10x followed with 10/10x rapidly. pt holding her breath while performing. heart rate increase to 133 following. pt demo the ability to squat on occasional ability Kneeling: pt demo the ability to kneel 3/3x, 10/10x and 10/10x rapidly (no increase in speed) pt put good effort into completing what was asked. use of external support. 136 heart rate after 10/10x. pt states she feels tired - pt demo winded. 164 heart rate after 10/10rapidly. pt can kneel with external support on occasional ability Reaching out/up: pt demo the ability to reach up/out 3/3, 10/10, rapidly 10/10. pt states pain in right shoulder 01/13 with symptoms of numbness/tingling and muscle/nerve pain. heart rate 110. after deep breath pt heart rate drops to 94. pt can reach out/up on occasional ability -(right UE limited by symptoms) Walking: pt ambulated 15 min during the assessment this was done on treadmill where pt did hold on to handles and speed was good for her age- pt ambulated with good gait pattern talking with therapist throughout- pt following did keep right UE close to her side - heart rate was 120. pt can ambulate on occasional ability. Standing: pt demo the ability to stand for 10 min throughout session shifting her body weight. pt did keep right UE close to her body in guarded posturing. pt can stand on occupational ability. Sitting: pt demo the ability to sit for 60 min with weight shifting of body - would reach for her right shoulder and move her neck around- indication of discomfort-. pt can sit on occasional ability Climbing Stairs: pt demo the ability to ascend/descend with reciprocal step pattern 10 stairs use of handrail with left UE. Floor Lift: pt demo the ability to lift 30# maximally from floor level with good lifting mechanics. A PYSICAL DEMAND LEVEL OF LIGHT MEDIUM Knee Lift: pt demo the ability to lift 30# maximally from knee level with good lifting mechanics. A PYSICAL DEMAND LEVEL OF LIGHT MEDIUM Waist Lift: pt demo the ability to lift 30# maximally from waist level with good lifting mechanics. A PYSICAL DEMAND LEVEL OF LIGHT MEDIUM Shoulder Lift: pt demo the ability to lift 20# maximally from shoulder level with good lifting mechanics. A PYSICAL DEMAND LEVEL OF LIGHT Overhead Lift: pt demo the ability to lift 12.5## maximally from overhead level with good lifting mechanics. A PYSICAL DEMAND LEVEL OF SEDENTARY Carrying: pt demo the ability to carry 15# for 20 feet with fair ability-this was done after lifting and pt did demo more use of left UE than right- pt did report pain 7/10 with tasks-. Pt demo the ability to push/pull of 30# maximally for 10 feet. Comments: pt put forth good effort in performing all tasks asked-. pt symptoms listed above did increase with increased activity and use of her right arm this would be limiting factor with work and tasks of daily living. see attached [place] [employer] of [employer] restrictions for use of right UE: physical restrictions limits pt to 2 hours of use of right UE.
--- NOTE | 2022-03-09 08:12 | HP.OTFCE.D ---
FCE D/C Summary - Discharge CALLIE VAUGHN was seen for a one time visit for an FCE on 03/05/22 and is discharged.
--- NOTE | 2022-03-12 11:31 | HP.OTFCE.D ---
FCE D/C Summary - Discharge CALLIE VAUGHN was seen for a one time visit for an FCE on 03/05/22 and is discharged.
== END 2022-03-05 19:00 | disposition home or self-care (01) ==
LOC: OT 09:01
PROVIDERS: PCP Internal Medicine; Referring Provider Orthopaedic Surgery; Visit Provider Orthopaedic Surgery
DX: G54.0 Brachial plexus disorders (principal); M19.011 Primary osteoarthritis, right shoulder; M25.311 Other instability, right shoulder
CPT/HCPCS: 97750

== ENCOUNTER → 2022-03-26 | Outpatient (CLI) | payer BC, SELFPAY ==
[2022-03-26 15:38] LABS: Absolute Lymphocyte Count 2.19 X10^3/uL (0.83-4.51); Absolute Neutrophil Count 6.3 X10^3/uL (2.0-7.7); Basophil# 0.04 X10^3/uL; Basophil% 0.4 % (0-1); Eosinophil# 0.05 X10^3/uL; Eosinophils% 0.5 % (0-5); Hematocrit 41.9 % (37-47); Hemoglobin 14.1 g/dL (12.0-15.0); Lymphocyte # 2.19 X10^3/ul (0.83-4.51); Lymphocyte % 23.9 % (19-41); Mean Corp Hgb Conc 33.7 g/dL (32-36); Mean Corpuscular Hgb 29.9 pg (27.0-32.0); Mean Platelet Vol. 10.6 fl (6.2-12.0); Monocyte# 0.55 X10^3/uL; NRBC Flagged by Analyzer 0 % (0-5); Neutrophil # 6.29 X10^3/uL (2.7-7.7); Neutrophil % 68.8 % (47-70); Platelet Count 347 K/mm3 (150-450); RBC Distribution Width CV 11.9 % (11.6-14.6); RBC Distribution Width SD 38.8 fl (35.1-43.9); Red Blood Count 4.71 M/mm3 (4.2-5.4); White Blood Count 9.2 K/mm3 (4.4-11.0)
[2022-03-26 15:55] LABS: AST(SGOT) 22 U/L (15-37); Alanine Aminotransfer ALT/SGPT 27 U/L (13-56); Albumin, Serum 3.2 g/dL (3.2-5.0); Alkaline Phosphatase 74 U/L (45-117); Anion Gap 3 (5-15); BUN 10 mg/dL (7-18); BUN/Creat Ratio 12.6 RATIO (10-20); Calcium,Total 8.8 mg/dL (8.5-10.1); Chloride 106 mmol/L (98-107); Cholesterol 265 mg/dL (200); EST Glomerular Filtration Rate 81 mL/min (>60); Est Glom Filt Rate - Afr Amer 98 mL/min (>60); Globulin 3.3 g/dL (2.2-4.2); Glucose 102 mg/dL (74-106); High Density Lipoprotein 52 mg/dL; Protein, Total 6.5 g/dL (6.4-8.2); Sodium Level 141 mmol/L (136-145); T4 Free Direct 0.82 ng/dL (0.76-1.46); Thyroid Stim Hormone (TSH) 0.59 uIU/mL (0.358-3.74); Triglycerides 212 mg/dL; Very Low Density Lipoprotein 42 mg/dL (5-40)
== END | disposition home or self-care (01) ==
LOC: BIMLAB 11:56
PROVIDERS: PCP Internal Medicine; Referring Provider Internal Medicine; Visit Provider Internal Medicine
DX: R00.0 Tachycardia, unspecified (principal)
CPT/HCPCS: 36415; 80053; 80061; 84439; 84443; 85025

== ENCOUNTER 2022-04-26 06:33 | Day surgery (SDC) | payer OTHER, BC, SELFPAY ==
[2022-04-26 06:59] VITALS: BP 132/77; PULSE 76; RESP 16; TEMP 36.2; O2SAT 96; BMI 26.2
[2022-04-26] MEDS: Lactated Ringers 1,000 ML 15 ML IV (07:04)
--- NOTE | 2022-04-26 08:10 | RAD_ITS ---
STUDY: X-RAY - RIGHT SHOULDER REASON FOR EXAM: Female, 52 years old. Right shoulder injection. Intraprocedural documentation images. TECHNIQUE: 3 intraprocedural digital documentation view(s) of the right shoulder contrast injection. COMPARISON: None. FINDINGS: 3 intraoperative digital documentation views show contrast predominantly within the subacromial-subdeltoid bursa. Needle and an anchor overlying the humeral head. Normal visualized pulmonary apex. RAD/Fluoro Guided Needle Placement IMPRESSION: Intraprocedural documentation views as described. Electronically Signed: Tucker Fung, at 12:50 EST ,
[2022-04-26] MEDS: MethylPREDNISolone Acetate 40 MG/ML Vial IM (08:18)
[2022-04-26] MEDS: Bupivacaine 0.25% 30 ML Vial (08:18)
[2022-04-26] MEDS: Lidocaine 1% (5 ml sdv) 5 ML Vial (08:19)
--- NOTE | 2022-04-26 08:23 | PCM.OPRPT ---
Report of Operation Date of Procedure: 04/26/22 Description of Surgical Findings:: PREOPERATIVE DIAGNOSIS: Right rotator cuff injury. POSTOPERATIVE DIAGNOSIS: Right rotator cuff injury PROCEDURE PERFORMED: Right shoulder subacromial bursa steroid injection under fluoroscopic guidance. ANESTHESIA: MAC. BLOOD LOSS: Minimal. COMPLICATIONS: None. DESCRIPTION OF PROCEDURE: History and physical of today was reviewed. Risks and benefits of the procedure were explained. The patient understood and agreed to proceed. Informed consent was obtained. IV inserted per routine protocol. The patient was taken to the operating room and placed in the supine position. The right shoulder area was prepped and draped in a sterile fashion using iodine x3. Under fluoroscopic guidance on AP view, the right shoulder joint was visualized. The skin and subcutaneous tissue was anesthetized with approximately 1 mL of 1% lidocaine using a 25-gauge regular needle at the anterior shoulder joint area. Under direct visualization with fluoroscopy on AP view, using a 22-gauge 3-1/2-inch spinal needle, the needle was advanced via the skin directed towards the intraarticular position at the supraspinatus level. Once the tip of the needle was at the vicinity of the shoulder joint, after negative aspiration for blood, positive aspiration for synovial fluid, a total of 1 mL of contrast was injected to confirm correct placement of the needle as well as anterior and posterior spread of the contrast at the shoulder joint and the subacromial bursa. Cephalocaudal spread as well was visualized through the arthrogram. After confirmation on AP as well as oblique view and repeated negative aspiration for blood, a total of 4 mL of preservative-free 0.25% Marcaine with 40 mg of Depo-Medrol was injected easily. The needle was then removed intact. The patient experienced no sign or symptoms of intravascular injection. The patient experienced no paresthesia. The procedure was completed without any apparent difficulty or any complications. The patient appeared to tolerate it well. Assessment and plan: This is a 52-year-old female with right rotator cuff injury status post right shoulder subacromial bursa steroid injection under fluoroscopic guidance, patient will continue her current medications, patient will follow approximately 2 weeks for reevaluation.
[2022-04-26 08:25] VITALS: BP 110/78; BP 132/77; PULSE 85; RESP 16; TEMP 36.2; O2SAT 97
[2022-04-26 08:30] VITALS: BP 123/80; BP 132/77; PULSE 85; RESP 16; O2SAT 97
[2022-04-26 08:35] VITALS: BP 132/77; BP 99/76; PULSE 77; RESP 16; O2SAT 98
[2022-04-26 08:40] VITALS: BP 116/76; BP 132/77; PULSE 84; RESP 16; TEMP 36.5; O2SAT 96
[2022-04-26 08:56] VITALS: BP 132/77
== END 2022-04-26 09:04 | disposition home or self-care (01) ==
LOC: SDC 06:34 → AC 06:35
PROVIDERS: PCP Internal Medicine; Referring Provider Anesthesiology Pain Medicine; Visit Provider Anesthesiology Pain Medicine
PROC: 3E0U3GC Introduction of Other Therapeutic Substance into Joints, Percutaneous Approach (ICD-10-PCS; CPT 20610; principal; 2022-04-26 08:05)
DX: S46.001A Unspecified injury of muscle(s) and tendon(s) of the rotator cuff of right shoulder, initial encounter (principal); J45.909 Unspecified asthma, uncomplicated; F32.A Depression, unspecified; Z86.16 Personal history of COVID-19
CPT/HCPCS: 23350; 01620; 76000; 77002; J7120

== ENCOUNTER → 2022-05-14 | Outpatient (CLI) | payer OTHER, BC, SELFPAY ==
--- NOTE | 2022-05-14 13:24 | RAD_ITS ---
INDICATION: NECK PAIN EXAMINATION/TECHNIQUE: X-RAY - XR Spine Cervical 4 or 5 Views COMPARISON: None. FINDINGS: VERTEBRAE: Preserved vertebral body height. No fracture. No spondylolisthesis. Preservation of the normal cervical lordosis. No significant facet arthropathy. DISCS: Disc spaces are maintained. Minor anterior endplate spurring at C4-5-6 7 NECK SOFT TISSUES: No prevertebral soft tissue widening. LUNG APICES: Clear. On the AP and lateral views, there appears to be relatively lucent appearance to the right lateral mass and transverse process of C7 of uncertain etiology. CT is recommended for further evaluation. RAD/Cerv Spine 4 or 5 Views IMPRESSION: Mild spondylosis. No acute fracture.. Cannot exclude lytic lesion involving the right posterior arch and transverse process of C7. CT recommended Electronically Signed: Juaquin Powell MD at 21:02 EST ,
== END | disposition home or self-care (01) ==
LOC: MTRAD 13:23
PROVIDERS: PCP Internal Medicine; Referring Provider Nurse Practitioner Family; Visit Provider Nurse Practitioner Family
DX: G54.0 Brachial plexus disorders (principal)
CPT/HCPCS: 72050

== ENCOUNTER → 2022-11-05 | Outpatient (CLI) | payer BC, SELFPAY ==
--- NOTE | 2022-11-05 12:34 | BI_ITS ---
MAMMOGRAPHY - BILATERAL SCREENING REASON FOR EXAM: Female, 52 years old. Routine annual screening examination. PERTINENT HISTORY: Sister with breast cancer. Grandmother with breast cancer. Remote bilateral excisional breast biopsies. TECHNIQUE: Digital bilateral breast tish (3D mammographic acquisition) in the CC and MLO projections. 2-D mediolateral oblique (MLO) and craniocaudad (CC) views of both breasts were obtained. CAD: Full Field Digital Mammography with Computer Added Detection was performed. COMPARISON: Comparison is made with prior study dated June 25, 2020 and January 24, 2013. FINDINGS: Breast Composition: The breasts are extremely dense, which lowers the sensitivity of mammography. There are no dominant masses or suspicious calcifications. No other significant abnormalities are identified. There has been no significant change since the prior study. BI/SCRN MAMM (CAD)W/TISH BILAT IMPRESSION: Stable bilateral screening mammogram. Yearly follow-up mammogram recommended. (A) ASSESSMENT CATEGORY: BIRADS Category 1: Negative. A letter regarding these results will be sent to the patient by the facility within 30 days. Approximately 10% of breast cancers are not detected by mammography. A normal mammogram should not delay biopsy of a clinically suspicious abnormality. [id number] Electronically Signed: Franck Verdugo MD at 13:49 EDT ,
== END | disposition home or self-care (01) ==
LOC: OPBI 12:33
PROVIDERS: PCP Internal Medicine; Referring Provider Nurse Practitioner Family; Visit Provider Nurse Practitioner Family
DX: Z12.31 Encounter for screening mammogram for malignant neoplasm of breast (principal); Z80.3 Family history of malignant neoplasm of breast
CPT/HCPCS: 77063; 77067

== ENCOUNTER 2023-10-24 08:46 | Day surgery (SDC) | payer OTHER, SELFPAY ==
[2023-10-24 09:07] VITALS: BP 121/77; PULSE 90; RESP 16; TEMP 37.4; O2SAT 99; BMI 25.2
[2023-10-24] MEDS: Lactated Ringers 1,000 ML 15 ML IV (09:11)
--- NOTE | 2023-10-24 09:57 | RAD_ITS ---
EXAM: FL Fluoro Guide Needle Placement HISTORY: RIGHT SHOULDER INTRA ARTICULAR STEROID INJECTION COMPARISON: None Technique: 3 C-arm images obtained for injection of steroid into the glenohumeral joint. 2.5 seconds of fluoroscopy, a dose of 0.17 mGy FINDINGS: 3 C-arm images were obtained as the patient has undergone injection of steroid into the glenohumeral joint. Contrast was first injected into the joint space to assure optimal needle placement. RAD/Fluoro Guided Needle Placement IMPRESSION: Fluoroscopy provided for steroid injection into the glenohumeral joint by Dr. Rod Electronically Signed: Gideon Marrero MD at 12:09 EDT ,
[2023-10-24] MEDS: MethylPREDNISolone Acetate 40 MG/ML Vial (10:03)
[2023-10-24] MEDS: Lidocaine 1% (5 ml sdv) 5 ML Vial (10:03)
--- NOTE | 2023-10-24 10:07 | PCM.OPRPT ---
Report of Operation Date of Procedure: 10/24/23 Description of Surgical Findings:: PREOPERATIVE DIAGNOSIS: Right rotator cuff injury. POSTOPERATIVE DIAGNOSIS: Right rotator cuff injury PROCEDURE PERFORMED: Right shoulder intra-articular steroid injection under fluoroscopic guidance. ANESTHESIA: MAC. BLOOD LOSS: Minimal. COMPLICATIONS: None. DESCRIPTION OF PROCEDURE: History and physical of today was reviewed. Risks and benefits of the procedure were explained. The patient understood and agreed to proceed. Informed consent was obtained. IV inserted per routine protocol. The patient was taken to the operating room and placed in the supine position. The right shoulder area was prepped and draped in a sterile fashion using iodine x3. Under fluoroscopic guidance on AP view, the right shoulder joint was visualized. The skin and subcutaneous tissue was anesthetized with approximately 1 mL of 1% lidocaine using a 25-gauge regular needle at the anterior shoulder joint area. Under direct visualization with fluoroscopy on AP view, using a 22-gauge 3-1/2-inch spinal needle, the needle was advanced via the skin directed towards the intraarticular position at the supraspinatus level. Once the tip of the needle was at the vicinity of the shoulder joint, after negative aspiration for blood, positive aspiration for synovial fluid, a total of 1 mL of contrast was injected to confirm correct placement of the needle as well as anterior and posterior spread of the contrast at the shoulder joint and the subacromial bursa. Halo spread as well was visualized through the arthrogram. After confirmation on AP as well as oblique view and repeated negative aspiration for blood, a total of 4 mL of preservative-free 0.25% Marcaine with 40 mg of Depo-Medrol was injected easily. The needle was then removed intact. The patient experienced no sign or symptoms of intravascular injection. The patient experienced no paresthesia. The procedure was completed without any apparent difficulty or any complications. The patient appeared to tolerate it well. Assessment and plan: This is a 53-year-old female with right rotator cuff injury status post right shoulder intra-articular steroid injection under fluoroscopic guidance, patient will continue her current medications, patient will follow approximately 2 weeks for reevaluation.
[2023-10-24 10:10] VITALS: BP 117/78; BP 121/77; PULSE 84; RESP 16; TEMP 37.3; O2SAT 98
[2023-10-24 10:15] VITALS: BP 121/77; BP 122/72; PULSE 80; RESP 16; O2SAT 98
[2023-10-24 10:20] VITALS: BP 116/68; BP 121/77; PULSE 82; RESP 16; O2SAT 97
[2023-10-24 10:25] VITALS: BP 116/82; BP 121/77; PULSE 80; RESP 16; TEMP 37.3; O2SAT 98
[2023-10-24 10:37] VITALS: BP 121/77
== END 2023-10-24 10:50 | disposition home or self-care (01) ==
LOC: SDC 08:51 → AC 08:53
PROVIDERS: PCP Family Medicine; Referring Provider Anesthesiology Pain Medicine; Visit Provider Anesthesiology Pain Medicine
PROC: 3E0U3GC Introduction of Other Therapeutic Substance into Joints, Percutaneous Approach (ICD-10-PCS; CPT 20610; principal; 2023-10-24 10:05)
DX: S46.001A Unspecified injury of muscle(s) and tendon(s) of the rotator cuff of right shoulder, initial encounter (principal); X58.XXXA Exposure to other specified factors, initial encounter
CPT/HCPCS: 20610; 01620; 76000; 77002; J7120

== ENCOUNTER 2024-03-26 09:15 | Day surgery (SDC) | payer OTHER, SELFPAY ==
[2024-03-26] VITALS (9 sets, daily range): BP systolic 111–125; BP diastolic 72–81; PULSE 74–84; RESP 16; TEMP 36.8–37.1; O2SAT 97–100; BMI 25.9
--- NOTE | 2024-03-26 10:09 | PRE.ANES_ITS ---
ASA Classification* ASA Classification ASA Classification: 2 Assessment & Plan Anesthesia* Anesthesia Assessment Anesthesia Assessment: Discussed sedation and/or anesthesia options, risks, benefits, and alternatives with patient/parents/legal guardian/POA. Questions invited. The patient/parents/legal guardian/POA seems to understand and agrees to proceed with anesthesia plan. Reviewed the physical assessment, medical history, allergy history and patient home medications list prior to surgery/procedure/anesthetic and documented any changes. Performed airway and anesthesia risk assessments. Anesthesia Type Anesthesia Type: MAC Anesthesia Focused Assessment* Temperature: 98.4 F Pulse Rate: 74 Blood Pressure: 117/75 Respiratory Rate: 16 Pulse Ox: 100 Airway Assessment Mouth opens: >3 cm Mallampati Score: II Focused Labs Anesthesia Preop lab: CBC WBC 9.2 K/mm3 (4.4-11.0) 03/26/22 11:56 RBC 4.71 M/mm3 (4.2-5.4) 03/26/22 11:56 Hgb 14.1 g/dL (12.0-15.0) 03/26/22 11:56 Hct 41.9 % (37-47) 03/26/22 11:56 Plt Count 347 K/mm3 (150-450) 03/26/22 11:56 CHEMISTRY Potassium 4.0 mmol/L (3.5-5.1) 03/26/22 11:56 Sodium 141 mmol/L (136-145) 03/26/22 11:56 BUN 10 mg/dL (7-18) 03/26/22 11:56 Creatinine 0.80 mg/dL (0.55-1.02) 03/26/22 11:56 Glucose 102 mg/dL (74-106) 03/26/22 11:56 TSH 0.59 uIU/mL (0.358-3.74) 03/26/22 11:56 COAG Pre-Assessment Diagnosis/Proposed Procedure Planned Operative Procedure(s): Rt Shoulder Injection Anesthesia History 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 When Was Last Pacemaker Check QUESTION #4 FULL TEXT: You/Your Family Experience fever (hyperthermia) with Anesthesia Last Oral Intake Last Oral intake: Last Oral Intake NPO since 00:00 03/26/24 09:48 Meds taken in AM with sips of No 03/26/24 09:48 water? Meds patient instructed to take am of surgery PONV PONV - motor coach chauffeur: PONV - motor coach chauffeur Female HX of Motion Sickness HX of N/V After Surgery Non-Smoker Duration of Surgery greater than 60 minutes Number of Risk Factors PONV Score Height & Weight Height & Weight: Anesthesia: Height & Weight Height 5 ft 6 in 03/26/24 09:48 Weight: 73 kg 03/26/24 09:48 Body Mass Index (BMI) 25.9 03/26/24 09:48 Respiratory Assessment Respiratory Assessment - motor coach chauffeur: Respiratory Tract Infection Hx - motor coach chauffeur Hx Respiratory Tract Infection No 10/19/23 08:14 STOP Sleep Apnea STOP Sleep Apnea - motor coach chauffeur: STOP Sleep Apnea - motor coach chauffeur Hx Hypertension No 10/19/23 08:14 Hx Sleep Apnea Yes 10/19/23 08:14 CPAP Yes 10/24/23 10:10 BIPAP No 10/19/23 08:14 Do you snore loudly (louder than talking or can be heard Do you often feel tired/ fatigued/ sleepy during daytime? Has anyone observed you stop breathing during sleep? STOP Results QUESTION #5 FULL TEXT : Do you snore loudly (louder than talking or can be heard through closed doors)? 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 Specify any problems Hx of Preganancy in last 3 Months Nurse Filling Out Transfusion & Questions: Date: Time: Patient unable to answer at this time (ie. confused, unrespo /Reproduction History /Reproductive History - motor coach chauffeur: /Reproductive Hx- motor coach chauffeur Hx Now Gestational Age (in weeks): EDC: Hx Hx Para Hx Section SAB PFSH Medical History CPAP (continuous positive airway pressure) dependence Sleep apnea Cervical pain (neck) Cervical lesion Wears glasses Post-menopausal Pulmonary embolism DVT (deep venous thrombosis) Migraine headache Back pain Injury of head and neck Ulcerative colitis History of Crohn's disease Former smoker Anxiety and depression Tachycardia Dyspareunia in female Bilateral hip pain COVID Hip pain Screening for thyroid disorder Peripheral edema Edema Sinusitis URI (upper respiratory infection) Insomnia Hot flashes due to menopause Blood clot embolism during , antepartum Asthma IBS (irritable bowel syndrome) Allergies Home Medications ?Medication ?Instructions ?Recorded ?Last Taken ?Type albuterol sulfate 90 mcg/actuation See Rx Instructions .Route 08/05/20 Unknown Rx aerosol inhaler .COMPLEX ##8.5 trazodone 100 mg tablet See Rx Instructions .Route 11/26/22 Unknown Rx .COMPLEX #90 TABLETS venlafaxine 75 mg capsule,extended See Rx Instructions .Route 11/26/22 Unknown Rx release 24 hr .COMPLEX #90 caps montelukast 10 mg tablet See Rx Instructions .Route 05/16/23 Unknown Rx .COMPLEX #60 tabs risankizumab-rzaa 60 mg/mL mg IV 03/26/24 Unknown History intravenous solution (Skyrizi) Allergy/AdvReac Type Severity Reaction Status Date / Time codeine Allergy Mild upset Verified 03/26/24 09:46 stomach adalimumab (From Humira) Allergy Rash Verified 03/26/24 09:46 gadoterate meglumine (From Allergy Rash Verified 03/26/24 09:46 Dotarem) ustekinumab (From Stelara) Allergy Shortness Verified 03/26/24 09:46 of breath Family History Sister Breast cancer Grandfather Colon cancer Grandmother Breast cancer Father Heart disease Hypertension Mother Heart disease Hypertension Surgical History Hx of section Hx of hysterectomy Hx of surgical procedure History of breast lump removal Hx of surgical procedure History of hysterectomy rt shoulder surgery c section Breast lump in female Social History Smoking Status: Former smoker quit date: 06/06/99 alcohol intake: never substance use type: does not use what type of physical activity do you participate in: none Review of Systems (Anesthesia) ROS Narrative System reviewed and no additional complaints, except as documented.
--- NOTE | 2024-03-26 10:49 | RAD_ITS ---
EXAM: FL FLUOROSCOPY < 1 HOUR CLINICAL INDICATION: SHOULDER INJECTION TECHNIQUE: Fluoroscopic images performed in multiple projections. Fluoroscopic guidance was provided by a physician. Fluoroscopic time is 6.4 seconds and the cumulative dose is 0.25 mGy. COMPARISON: No relevant prior studies available. FINDINGS AND RAD/Fluoro Guided Needle Placement IMPRESSION: 2 images for intra-articular injection. Refer to the procedure note for complete details. Electronically Signed: Kana Bullock DO at 23:12 EDT ,
[2024-03-26] MEDS: MethylPREDNISolone Acetate 40 MG/ML Vial (10:56)
[2024-03-26] MEDS: Bupivacaine 0.25% 30 ML Vial (10:56)
[2024-03-26] MEDS: Lidocaine 1% (5 ml sdv) 5 ML Vial (10:56)
--- NOTE | 2024-03-26 11:04 | PCM.POST.ANE ---
Anesthesia: Postop Eval I Current Vital Signs Temperature: 98.3 F Pulse Rate: 78 Blood Pressure: 125/74 Respiratory Rate: 16 Pulse Ox: 98 Oxygen Delivery Method: Room Air Assessment Airway patent: Yes Spontaneous unlabored respirations: Yes Mental status: Awake and Calm nausea: No Vomiting: No Anesthesia Complication: No Fluid Hydration Crystalloid volume administer (ml): 20 Total IV fluid infused: 20 Progress Note Anesthesia document: Postop Eval 1 completed: Yes
--- NOTE | 2024-03-26 11:38 | OP.PCM_ITS ---
Report of Operation Date of Procedure: 03/26/24 Description of Surgical Findings:: PREOPERATIVE DIAGNOSIS: Right shoulder rotator cuff injury. POSTOPERATIVE DIAGNOSIS: Right shoulder rotator cuff injury PROCEDURE PERFORMED: Right shoulder intra-articular steroid injection under fluoroscopic guidance. ANESTHESIA: MAC. BLOOD LOSS: Minimal. COMPLICATIONS: None. DESCRIPTION OF PROCEDURE: History and physical of today was reviewed. Risks and benefits of the procedure were explained. The patient understood and agreed to proceed. Informed consent was obtained. IV inserted per routine protocol. The patient was taken to the operating room and placed in the supine position. The right shoulder area was prepped and draped in a sterile fashion using iodine x3. Under fluoroscopic guidance on AP view, the right shoulder joint was visualized. The skin and subcutaneous tissue was anesthetized with approximately 1 mL of 1% lidocaine using a 25-gauge regular needle at the anterior shoulder joint area. Under direct visualization with fluoroscopy on AP view, using a 22-gauge 3-1/2-inch spinal needle, the needle was advanced via the skin directed towards the intraarticular position at the supraspinatus level. Once the tip of the needle was at the vicinity of the shoulder joint, after negative aspiration for blood, positive aspiration for synovial fluid, a total of 1 mL of contrast was injected to confirm correct placement of the needle as well as anterior and posterior spread of the contrast at the shoulder joint and the subacromial bursa. Halo spread as well was visualized through the arthrogram. After confirmation on AP as well as oblique view and repeated negative aspiration for blood, a total of 4 mL of preservative-free 0.25% Marcaine with 40 mg of Depo-Medrol was injected easily. The needle was then r emoved intact. The patient experienced no sign or symptoms of intravascular injection. The patient experienced no paresthesia. The procedure was completed without any apparent difficulty or any complications. The patient appeared to tolerate it well. Assessment and plan: This is a 53-year-old female with right shoulder rotator cuff injury status post right shoulder intra-articular steroid injection under fluoroscopic guidance, patient will continue her current medications, patient will follow approximately 2 weeks for reevaluation.
--- NOTE | 2024-03-26 12:44 | PCM.POSTANE2 ---
Anesthesia Postop Eval I Sum Postop Eval Completion status Anesthesia document: Postop Eval 1 completed: Yes Anesthesia Postop Eval I Summary Anesthesia Postop Eval I Summary: Anesthesia Postop Eval I: Assessment Summary Airway patent Yes 03/26/24 11:05 [email or web address] Spontaneous unlabored Yes 03/26/24 11:05 [email or web address] respirations Mental status Awake,Calm 03/26/24 11:05 [email or web address] nausea No 03/26/24 11:05 [email or web address] Vomiting No 03/26/24 11:05 [email or web address] Anesthesia Postop Eval I: Fluid Summary Crystalloid volume administer 20 03/26/24 11:05 [email or web address] (ml) Colloids volume administered ( ml) Blood Product volume administered (ml) Total IV fluid infused 20 03/26/24 11:05 [email or web address] Anesthesia Postop Eval I: Summary Notes Anesthesia Complication No 03/26/24 11:05 [email or web address] Anesthesia Complication Comment: Post-operative progress note Anesthesia: Postop Eval II Evaluation Mental status: Awake Pain Level: 0 nausea: No Vomiting: No
== END 2024-03-26 11:38 | disposition home or self-care (01) ==
LOC: SDC 09:15 → AC 09:21
PROVIDERS: PCP Family Medicine; Referring Provider Family Medicine; Visit Provider Anesthesiology Pain Medicine
PROC: 3E0U3GC Introduction of Other Therapeutic Substance into Joints, Percutaneous Approach (ICD-10-PCS; CPT 20610; principal; 2024-03-26 11:15)
DX: S46.001A Unspecified injury of muscle(s) and tendon(s) of the rotator cuff of right shoulder, initial encounter (principal); J45.909 Unspecified asthma, uncomplicated; Z86.16 Personal history of COVID-19; Z90.710 Acquired absence of both cervix and uterus; Z87.19 Personal history of other diseases of the digestive system; Z86.718 Personal history of other venous thrombosis and embolism; Z86.711 Personal history of pulmonary embolism; Z87.891 Personal history of nicotine dependence; F32.A Depression, unspecified; X58.XXXA Exposure to other specified factors, initial encounter
CPT/HCPCS: 23350; 01620; 76000; 77002; A4216; J2405

== ENCOUNTER 2025-03-25 07:17 | Day surgery (SDC) | payer OTHER, SELFPAY ==
--- NOTE | 2025-03-22 11:59 | PAT.ANESEVAL ---
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 When Was Last Pacemaker Check QUESTION #4 FULL TEXT: You/Your Family Experience fever (hyperthermia) with Anesthesia Last Oral Intake Last Oral intake: Last Oral Intake NPO since Meds taken in AM with sips of water? Meds patient instructed to take am of surgery PONV PONV - pediatric neuropsychologist: PONV - pediatric neuropsychologist Female Yes 03/22/25 11:23 HX of Motion Sickness Yes 03/22/25 11:23 HX of N/V After Surgery No 03/22/25 11:23 Non-Smoker Yes 03/22/25 11:23 Duration of Surgery greater No 03/22/25 11:23 than 60 minutes Number of Risk Factors 3 03/22/25 11:23 PONV Score Moderate Risk 03/22/25 11:23 Height & Weight Height & Weight: Anesthesia: Height & Weight Height 5 ft 6 in 03/26/24 09:48 Respiratory Assessment Respiratory Assessment - pediatric neuropsychologist: Respiratory Tract Infection Hx - pediatric neuropsychologist Hx Respiratory Tract Infection No 03/22/25 11:23 STOP Sleep Apnea STOP Sleep Apnea - pediatric neuropsychologist: STOP Sleep Apnea - pediatric neuropsychologist Hx Hypertension No 03/22/25 11:23 Hx Sleep Apnea Yes 03/22/25 11:23 CPAP Yes: USES PRN 03/22/25 11:23 BIPAP No 03/22/25 11:23 Do you snore loudly (louder than talking or can be heard Do you often feel tired/ fatigued/ sleepy during daytime? Has anyone observed you stop breathing during sleep? STOP Results Positive 03/22/25 11:23 QUESTION #5 FULL TEXT : Do you snore loudly (louder than talking or can be heard through closed doors)? 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 Specify any problems Hx of Preganancy in last 3 No 03/22/25 11:23 Months Nurse Filling Out Transfusion VCHRISTIN 03/22/25 11:23 & Questions: Date: 03/22/25 03/22/25 11:23 Time: 11:24 03/22/25 11:23 Patient unable to answer at this time (ie. confused, unrespo /Reproduction History /Reproductive History - pediatric neuropsychologist: /Reproductive Hx- pediatric neuropsychologist Hx Now No 03/22/25 11:23 Gestational Age (in weeks): EDC: Hx Hx Para Hx Section SAB No 03/22/25 11:23 PFSH Medical History CPAP (continuous positive airway pressure) dependence Sleep apnea Cervical pain (neck) Cervical lesion Wears glasses Post-menopausal Pulmonary embolism DVT (deep venous thrombosis) Migraine headache Back pain Injury of head and neck Ulcerative colitis History of Crohn's disease Former smoker Anxiety and depression Tachycardia Dyspareunia in female Bilateral hip pain COVID Hip pain Screening for thyroid disorder Peripheral edema Edema Sinusitis URI (upper respiratory infection) Insomnia Hot flashes due to menopause Blood clot embolism during , antepartum Asthma IBS (irritable bowel syndrome) Allergies Home Medications Medication Instructions Recorded Last Taken Type albuterol sulfate 90 mcg/actuation See Rx Instructions .Route 08/05/20 Unknown Rx aerosol inhaler .COMPLEX ##8.5 trazodone 100 mg tablet See Rx Instructions .Route 11/26/22 Unknown Rx .COMPLEX #90 TABLETS venlafaxine 75 mg capsule,extended See Rx Instructions .Route 11/26/22 Unknown Rx release 24 hr .COMPLEX #90 caps montelukast 10 mg tablet See Rx Instructions .Route 05/16/23 Unknown Rx .COMPLEX #60 tabs risankizumab-rzaa 60 mg/mL 600 mg IV .Q8 WEEKS 03/26/24 Unknown History intravenous solution (Skyrizi) Allergy/AdvReac Type Severity Reaction Status Date / Time codeine Allergy Mild upset Verified 03/22/25 11:18 stomach adalimumab (From Humira) Allergy Rash Verified 03/22/25 11:18 gadoterate meglumine (From Allergy Rash Verified 03/22/25 11:18 Dotarem) ustekinumab (From Stelara) Allergy Shortness Verified 03/22/25 11:18 of breath Family History Sister Breast cancer Grandfather Colon cancer Grandmother Breast cancer Father Heart disease Hypertension Mother Heart disease Hypertension Surgical History Hx of surgical procedure Hx of section Hx of hysterectomy Hx of surgical procedure History of breast lump removal Hx of surgical procedure History of hysterectomy rt shoulder surgery c section Breast lump in female Social History Smoking Status: Former smoker quit date: 06/06/99 alcohol intake: never substance use type: does not use what type of physical activity do you participate in: none Recommendation Anesthesia Recommendation Anesthesia recommendation: OPTIMIZED for anesthesia
[2025-03-25] VITALS (7 sets, daily range): BP systolic 125–146; BP diastolic 75–90; PULSE 74–87; RESP 12–18; TEMP 36.2–36.6; O2SAT 97–100; BMI 25.6
--- OUTSIDE RECORDS SUMMARY | 2025-03-25 07:23 | XMS RPT_ITS | CCD ---
Author Organization [facility] Care Team Providers Care Director Of Home Care [facility] Name Role Phone PHYSICIAN, DEFAULT Unavailable Unavailable PHYSICIAN, DEFAULT Unavailable Unavailable RICKI GRACE Unavailable Unavailable RICKI GRACE Unavailable Unavailable TRACY KUNZ Unavailable Unavailable TRACY KUNZ Unavailable Unavailable AR Unavailable Unavailable RICKI GRACE Unavailable Unavailable Shaun Álvarez Primary Care Provider NAFGLORIA, VALENTINE Referring Unavailable SHAUN ÁLVAREZ Primary Care Unavailable NAFFAH, FARID Referring Unavailable SHAUN ÁLVAREZ Primary Care Unavailable MARIA ELENA, MARAID Referring Unavailable SHAUN ÁLVAREZ Primary Care Unavailable Moreno Knott Primary Care Provider Dr. Moreno Knott Primary Care Provider [phone] Dr. Moreno Knott Attending Provider [phone] Dr. Moreno Knott Referring Provider [phone] Dr. Chevy Brewster Attending Provider [phone] Sarai Beal MD Un[facility] Unavailab le Unavailable Primary Care Provider Unavailyesi e Dr. Moreno Knott Primary Care Provider [phone] Dr. Moreno Knott Attending Provider [phone] Dr. Moreno Knott Referring Provider [phone] Dr. Moreno Knott Primary Care Provider [phone] Dr. Moreno Knott Attending Provider [phone] Dr. Moreno Knott Referring Provider [phone] MORENO KNOTT Primary Care Unavailable ISHAN TOMLIN Attending Unavailable Moreno Knott MD Primary Care Provider Mina Kan MD Unavailable Sonny, Milana Primary Care Provider [phone] Mina Kan MD Unavailable Moreno Knott Primary Care Provider Sonny DO Milana L Primary Care Provider Moreno Knott Primary Care Provider Melchor Morrell Unavailable JamarShirlene Unavailable Mina Kan MD Unavailable SONNY, MILANA Primary Care Unavailable NIKUNJ CAMPOS Attending Unavailable SONNY, MILANA Primary Care Unavailable SONNY, MILANA Primary Care Unavailable RIA WAYNE Attending Unavailable JOHN ALEXANDER Attending Unavailable JOHN ALEXANDER Referring Unavailable SONNY, MILANA Primary Care Unavailable RUBÉN MERCADO Referring Unavailable SONNY, MILANA L Primary Care Unavailable SONNY, MILANA L Primary Care Unavailable ARIA GILES Attending Unavailable GHULAMROLYTHE A Referring Unavailable SONNY, MILANA L Primary Care Unavailable GHULAMROLYTHE A Referring Unavailable SONNY, MILANA L Primary Care Unavailable SONNY, MILANA L Primary Care Unavailable SONNY, MILANA L Primary Care Unavailable DEDE DEJESUS Attending Unavailable GHULAM, MEREJOSETHE A Referring Unavailable SONNY, MILANA L Primary Care Unavailable GHULAMROLYTHE A Referring Unavailable SONNY, MILANA L Primary Care Unavailable GHULAMROLYTHE A Referring Unavailable SONNY, MILANA L Primary Care Unavailable RUBÉN MERCADO Attending Unavailable GHULAMROLYTHE A Referring Unavailable SONNY, MILANA L Primary Care Unavailable Moreno Knott MDa Primary Care [facility] ider SONNY, MILANA L Primary Care Unavailable GHULAM, MEREDYTHE A Referring Unavailable SONNY, MILANA L Referring Unavailable SONNY, MILANA L Primary Care Unavailable GHULAM, MEREDYTHE A Referring Unavailable SONNY, MILANA L Primary Care Unavailable Marcel, Juaquin Attending Unavailable Sonny, Milana L. Referring Unavailable Sonny, Milana L. Primary Care Unavailable Sonny, Milana L. Primary Care Unavailable Marcel Juaquin Referring Unavailable Juaquin Rod Attending Unavailable SONNY, MILANA L Primary Care Unavailable GHULAM, MEREDYTHE A Referring Unavailable GHULAM, MEREDYTHE A Attending Unavailable SONNY, MILANA L Primary Care Unavailable GHULAM, MEREDYTHE A Referring Unavailable LIZ AVERY Attending Unavailable SONNY, MILANA L Primary Care Unavailable SONNY, MILANA L Primary Care Unavailable GHULAM, MEREDYTHE A Referring Unavailable GHULAM, MEREDYTHE A Attending Unavailable Allergies Allergy Classification Reported Allergen(s) Allergy Type Date of Onset Reaction(s) Facility Corticosteroids (1 source) Cortisone Drug Allergy 12-13-19 Shortness of breath [facility] hydroquinone (1 source) hydroquinone Drug Allergy 09-24-19 23 Anaphylaxis [facility] Opioid Agonists (1 source) Codeine Drug Allergy 10-15-19 04 Nausea Only, Other, Hives [facility] (5 sources) codeine; Translations: [CODEINE] Drug Allergy 10-15-19 04 [facility]OF [facility] (1 source) Corticosteroids Drug allergy (disorder) 12-21-19 17 AOF [facility] (1 source) No Known Allergies; Translations: [No Known Allergies] Propensity to adverse reactions (disorder) [facility] (20 sources) Codeine Drug Allergy 10-15-19 04 Hives, GI Upset, Nausea Only, Other [facility] [place] (20 sources) Cortisone Drug Allergy 12-13-19 20 Shortness Of Breath [facility], [place] (20 sources) gadoterate meglumine; Translations: [GADOTERATE MEGLUMINE] Drug Allergy 08-25-19 22 Unknown [facility] (1 source) Codeine Drug Allergy 09-05-19 [facility] Work Phone: (20 sources) adalimumab; Translations: [ADALIMUMAB] Drug Allergy 04-26-20 Hives [facility] (20 sources) ustekinumab; Translations: [USTEKINUMAB] Drug Allergy 04-26-20 Shortness of Breath [facility] (20 sources) hydroquinone; Translations: [HYDROQUINONE] Drug Allergy 09-24-19 Anaphylaxis [facility] (20 sources) hydroquinone Drug Allergy 09-24-19 Anaphylaxis [facility] (1 source) adalimumab Drug Allergy 03-22-20 [facility] (1 source) Codeine Drug Allergy 03-22-20 [facility] (1 source) ustekinumab Drug Allergy 03-22-20 [facility] (1 source) gadoterate meglumine Drug allergy (disorder) 03-22-20 [facility] Medications Current Medications Medication Drug Class(es) Dates Sig (Normalized) Sig (Original) acetaminophen 325 mg / oxyCODONE hydrochloride 5 mg oral tablet (11 sources) Opioid Agonist Start: 04-20-2021 take 1 tablet by mouth twice daily 1 tablet, Oral, 2 TIMES DAILY, First dose on Tue04/20/21 at 0108 Maximum dose of acetaminophen is 4000 mg from all sources in 24 hours. Start: 11-16-2019 End: 06-28-2022 Oxycodone-Acetaminophen Disc ontinued 1 EACH PO THREE TIMES A DAY November 16, 2019 12:00am June 28, 2022 4:13pm take 1 tablet by nichol th every four hours as needed for pain oxyCODONE-acetaminophen (PERCOCET) 5-325 MG per tablet Take 1 tablet by mouth every 4 hours as needed for Pain. 0 Active [id number] 200 actuat albuterol 0.09 mg/actuat metered dose inhaler (20 sources) beta2-Adrenergic Agonist Start: 12-12-2024 take 2 puff(s) by inhalation every four hours albuterol 90 mcg/actuation inhaler Inhale 2 puffs every 4 hours if needed. 12/12/2024 Active Start: 08-05-2020 take 2 puff(s) by in halation every six hours as needed for wheezing Albuterol Sulfate Active 0 .ROUTE .COMPLEX 8.5 August 05, 2020 9:54am INHALE 2 PUFFS EVERY 6 HOURS NEEDED FOR SHORTNESS OF BREATH OR WHEEZING Start: 06-13-2020 End: 08-05-2020 take 1 puff(s) by inhalation every six hours Albuterol Sulfate Discontinued 2 PUFF INHALATION EVERY 6 HOURS 8.5 June 13, 2020 1:00am August 05, 2020 9:54am Start: 12-05-2017 take 2 puff(s) by in halation every six hours albuterol HFA (PROVENTIL HFA, VENTOLIN HFA) 90 mcg/actuation inhaler Indications: Mild intermittent extrinsic asthma without complication (HCC) Inhale 2 Puffs as instructed every 6 hours. 1 Inhaler 11 12/05/2017 Active Start: 12-05-2017 take 2 puff(s) by in halation four times daily as needed albuterol 108 (90 Base) MCG/ACT inhaler Inhale 2 puffs 4 times daily as needed. 12/05/2017 Active Comment on above: Inhale 2 Puffs as in structed every 6 hours. albuterol 0.833 mg/ml / ipratropium bromide 0.167 mg/ml inhalation solution (2 sources) Anticholinergic, beta2-Adrenergic Agonist Start: take 3 mL by inhalation every four hours as needed ipratropium-albute rol (DUONEB) 0.5-2.5 (3) MG/3ML SOLN nebulizer solution Inhale 3 mLs into the lungs every 4 hours as needed for Shortness of Breath 360 mL 0 04/21/2021 Active Start: 04-21-2021 ipratropium-al buterol (DUONEB) nebulizer solution 1 ampule amoxicillin 875 mg / clavulanate 125 mg oral tablet (9 sources) Penicillin-class Antibacterial Start: 01-28-2025 End: 02-04-2025 take 1 tablet by mouth twice daily amoxicillin-clavulanate (Augmentin) 875-125 mg tablet Indications: Non-recurrent acute suppurative otitis media of both ears without spontaneous rupture of tympanic membranes Take 1 tablet (875 mg of amoxicillin) by mouth 2 times a day for 7 days. 14 tablet 01/28/2025 02/04/2025 Active Start: 05-21-2022 End: 06-28-2022 take 1 tablet by mouth twice daily Amoxicillin-Pot Clavulanate Active 1 TABLET PO TWICE A DAY June 28, 2022 4:16pm Start: 09-23-2021 End: 03-26-2022 take 1 tablet by mouth twice daily Amoxicillin-Pot Clavulanate (Augmentin) 500-125 mg tablet Discontinued 1 TABLET PO TWICE A DAY September 23, 2021 12:00am March 26, 2022 11:20am balsalazide (8 sources) Aminosalicylate Start: 03-03-2020 Balsalazide e Disodium Active PO March 03, 2020 4:16pm Start: 03-03-2020 End: 03-26-2022 Balsalazide e Disodium Disco ntinued PO March 02, 2020 11:00pm March 26, 2022 10:20am Start: 03-03-2020 End: 03-26-2022 Balsalazide e Disodium Disco ntinued PO March 03, 2020 12:00am March 26, 2022 11:20am Start: 03-03-2020 Balsalazide e Disodium Active PO March 03, 2020 12:00am End: 04-20-2021 balsalazide (COLAZAL) 750 MG capsule Take 2,250 mg by mouth 3 times daily 750 mg 3 by mouth TID 0 04/20/2021 Discontinued (LIST CLEANUP) benzonatate 200 mg oral capsule (3 sources) Non-narcotic Antitussive Start: 01-28-2025 End: 02-07-2025 take 1 capsule by mouth three times daily as needed for cough benzonatate (Tessalon) 200 mg capsule Indications: Acute cough Take 1 capsule (200 mg) by mouth 3 times a day as needed for cough for up to 10 days. Do not crush or chew. 30 capsule 01/28/2025 02/07/2025 Active Start: 04-20-2021 take 1 capsule by mo ut three times daily as needed for cough benzonatate (TESSALON) 100 MG capsule Take 1 capsule by mouth 3 times daily as needed for Cough 14 capsule 0 04/21/2021 Active budesonide 0.25 mg/ml inhalation suspension (1 source) Corticosteroid Start: 04-21-2021 budesonide (PULMICORT) nebulizer suspension 500 mcg cetirizine hydrochloride 10 mg oral tablet (1 source) Histamine-1 Receptor Antagonist Start: 01-28-2025 End: 02-27-2025 take 1 tablet by mouth once daily cetirizine (ZyrTEC) 10 mg tablet Indications: Eustachian tube dysfunction, bilateral , PND (post-nasal drip) Take 1 tablet (10 mg) by mouth once daily. 30 tablet 01/28/2025 02/27/2025 Active diclofenac sodium 0.01 mg/mg topical gel (1 source) Nonsteroidal Anti-inflammatory Drug Start: 04-24-2024 diclofenac sodium (Voltaren) 1 % gel Apply 2 g topically once daily. 04/24/2024 Active 0.3 ml enoxaparin sodium 100 mg/ml prefilled syringe (1 source) Low Molecular Weight Heparin Start: 04-20-2021 enoxaparin (LOVENOX) injection 30 mg estradiol 0.1 mg/ml vaginal cream (5 sources) Estrogen Start: 11-19-2022 End: 12-20-2023 estradiol (ESTRACE) 0.01 % (0.1 mg/gram) vaginal cream Indications: Recurrent UTI , Vaginismus , Postmenopausal atrophic vaginitis Use 0.5 g vaginally three times a week. 42.5 g 2 11/19/2022 12/20/2023 Discontinued Comment on above: Use 0.5 g vaginally three times a week. fluconazole 150 mg oral tablet (1 source) Azole Antifungal Start: 06-28-2022 Fluconazole (Diflucan) 150 mg tablet Active 150 MG PO Q3D June 28, 2022 1:00am may repeat second dose 72 hrs after first dose if symptoms persist fluticasone propionate 0.05 mg/actuat metered dose nasal spray (20 sources) Corticosteroid Start: 01-28-2025 End: 02-27-2025 take 1 spray(s) nasal route once daily fluticasone (Flonase) 50 mcg/actuation nasal spray Indications: Eustachian tube dysfunction, bilateral , PND (post-nasal drip) Administer 1 spray into each nostril once daily. Shake gently. Before first use, prime pump. After use, clean tip and replace cap. 16 g 01/28/2025 02/27/2025 Active Start: 09-20-2022 End: 03-25-2025 take 1 spray(s) nasal route once daily fluticasone (Flonase) 50 MCG/ACT nasal spray Indications: Viral pharyngitis Administer 1 spray into each nostril daily. Shake gently. Before first use, prime pump. After use, clean tip and replace cap. 16 g 03/25/2024 03/25/2025 Active lactobacillus rhamnosus gg [id number] unt oral capsule (20 sources) Start: 02-11-2020 take 1 capsule by mouth in the morning Lactobacillus Rhamnosus, GG, ( Probiotic Digestive Care) capsule Take 1 capsule by mouth in the morning. 02/11/2020 Active lidocaine hydrochloride 20 mg/ml mucous membrane topical solution (1 source) Antiarrhythmic, Amide Local Anesthetic Start: 11-30-2023 Lidocaine 2% mucous membrane solution montelukast 10 mg oral tablet (20 sources) Leukotriene Receptor Antagonist Start: 02-19-2019 End: 03-26-2022 take 1 tablet by mouth once daily montelukast (SINGULAIR) 10 mg tablet Indications: Asthma due to environmental allergies (HCC) , Environmental allergies Take 1 tablet by mouth once daily. 90 tablet 3 02/19/2019 Active Comment on above: Take 1 tablet by nichol th once daily. ondansetron (ZOFRAN-ODT) disintegrating tablet 4 mg (1 source) Start: 04-20-2021 ondansetron (ZOFRAN-ODT) disintegrating tablet 4 mg pantoprazole 40 mg delayed release oral tablet (20 sources) Proton Pump Inhibitor Start: 06-04-2022 End: 06-04-2023 take 1 tablet by mouth once daily before breakfast pantoprazole (ProtoNix) 40 MG EC tablet Take 1 tablet (40 mg) by mouth every morning (before breakfast). Do not crush, chew, or split. Do not start before June 04, 2022. 30 tablet 06/04/2022 Active polyethylene glycol 3350 93524 mg powder for oral solution (20 sources) Osmotic Laxative Start: 10-31-2023 End: 11-03-2023 take 17 g by mouth once daily polyethylene glycol 3350 17 gram packet Take 17 g by mouth once daily. 10/31/2023 Active Start: 04-20-2021 17 g, Oral, DA GHAZALA PRN, Constipation, Starting on Tue04/20/21 at 0109 First line therapy for constipation polyethylene glycol 3350 880115 mg / potassium chloride 2970 mg / sodium bicarbonate 6740 mg / sodium chloride 5860 mg / sodium sulfate 40456 mg powder for oral solution (2 sources) Osmotic Laxative Start: 12-05-2024 End: 12-05-2024 peg 3350-Electrolytes (GOLYTELY) 236-22.74-6.74 -5.86 gram suspension Indications: Crohn's disease of large intestine without complication (HCC) Take 4,000 mL by mouth one time only for 1 dose. Refer to printed prep instructions from your provider. 4000 mL 12/05/2024 12/05/2024 Active predniSONE 5 mg oral tablet (20 sources) Start: 11-14-2024 End: 01-09-2025 take 8 tablets by mouth once daily, then take 7 tablets by mouth once daily, then take 6 tablets by mouth once daily, then take 5 tablets by mouth once daily, then take 4 tablets by mouth once daily, then take 3 tablets by mouth once daily, then take 2 tablets by mouth once daily, then take 1 tablet by mouth once daily predniSONE (DELTASONE) 5 mg tablet Indications: Crohn's disease of large intestine without complication (HCC) Take 8 tablets by mouth once daily for 7 days, THEN 7 tablets once daily for 7 days, THEN 6 tablets once daily for 7 days, THEN 5 tablets once daily for 7 days, THEN 4 tablets once daily for 7 days, THEN 3 tablets once daily for 7 days, THEN 2 tablets once daily for 7 days, THEN 1 tablet once daily for 7 days. 252 tablet 11/14/2024 01/09/2025 Active Start: 10-31-2023 End: 11-05-2023 take 1 tablet by mouth once daily predniSONE (Deltasone) 50 MG tablet Take 1 tablet (50 mg) by mouth daily for 5 days. 5 tablet 0 10/31/2023 11/05/2023 Active Start: 06-13-2020 End: 11-11-2020 take 10 mg by mouth once daily Prednisone Discontinued 10 MG PO DAILY June 13, 2020 11:55am November 11, 2020 10:40am Start: 03-03-2020 End: 06-13-2020 take 20 mg by mouth once daily Prednisone Discontinued 20 MG PO DAILY March 03, 2020 12:00am June 13, 2020 11:55am pseudoephedrine hydrochloride 60 mg oral tablet (6 sources) alpha-Adrenergic Agonist End: 12-20-2023 take 1 tablet by mouth every four hours as needed pseudoephedrine (SUDAFED) 60 mg tablet Take 60 mg by mouth every 4 hours as needed. 0 12/20/2023 Discontinued Comment on above: Take 60 mg by mouth every 4 hours as needed. remdesivir 100 mg in sodium chloride 0.9 % 250 mL IVPB (1 source) Start: 04-21-2021 End: 04-24-2021 remdesivir 100 mg in sodium chloride 0.9 % 250 mL IVPB risankizumab-rzaa (SKYRIZI) 360 mg/2.4 mL (150 mg/mL) wearable injector (8 sources) Start: 06-04-2024 End: 11-07-2024 risankizumab-rzaa (SKYRIZI) 360 mg/2.4 mL (150 mg/mL) wearable injector Indications: Crohn's disease of large intestine without complication (HCC) Inject 360mg (1 cartridge) subcutaneously every 8 weeks. Start 4 weeks after the last infusion dose. 2.4 mL 2 06/04/2024 11/07/2024 Discontinued Start: 06-04-2024 risankizumab-r zaa (SKYRIZI) 360 mg/2.4 mL (150 mg/mL) wearable injector Indications: Crohn's disease of large intestine without complication (HCC) Inject 360mg (1 cartridge) subcutaneously every 8 weeks. Start 4 weeks after the last infusion dose. 2.4 mL 2 06/04/2024 Active Start: 06-04-2024 End: 06-04-2024 risankizumab-rzaa (SKYRIZI) 360 mg/2.4 mL (150 mg/mL) wearable injector Indications: Crohn's disease of large intestine without complication (HCC) Inject 360mg (1 cartridge) subcutaneously every 8 weeks. Start 4 weeks after the last infusion dose. 2.4 mL 2 06/04/2024 06/04/2024 Discontinued (Other) Start: 05-18-2024 End: 05-29-2024 risankizumab-rzaa (SKYRIZI) 360 mg/2.4 mL (150 mg/mL) wearable injector Indications: Crohn's disease of large intestine without complication (HCC) Inject 360mg (1 cartridge) subcutaneously every 8 weeks. Start 4 weeks after the last infusion dose. 2.4 mL 2 05/18/2024 05/29/2024 Discontinued Start: 05-18-2024 risankizumab-r zaa (SKYRIZI) 360 mg/2.4 mL (150 mg/mL) wearable injector Indications: Crohn's disease of large intestine without complication (HCC) Inject 360mg (1 cartridge) subcutaneously every 8 weeks. Start 4 weeks after the last infusion dose. 2.4 mL 2 05/18/2024 Active Start: 05-18-2024 risankizumab-r zaa (SKYRIZI) 360 mg/2.4 mL (150 mg/mL) wearable injector Indications: Crohn's disease of large intestine without complication (HCC) Inject 360 mg subcutaneously every 8 weeks. Start 4 weeks after the last infusion dose. 2.4 mL 2 05/18/2024 Active SKYRIZI 360 mg/2.4 mL (150 mg/mL) wearable injector (8 sources) Start: 11-07-2024 SKYRIZI 360 mg/2.4 mL (150 mg/mL) wearable injector Indications: Crohn's disease of large intestine without complication (HCC) INSERT 1 CARTRIDGE INTO ON-BODY INJECTOR AND INJECT 360 MG UNDER THE SKIN EVERY 8 WEEKS 2.4 mL 2 11/07/2024 Active Skyrizi 360 mg/2.4 mL (150 mg/mL) wearable injector injection (1 source) Start: 11-07-2024 inject 360 mg by subcutaneous injection once Skyrizi 360 mg/2.4 mL (150 mg/mL) wearable injector injection Inject 360 mg under the skin 1 time. 11/07/2024 Active traMADol hydrochloride 50 mg oral tablet (1 source) Opioid Agonist Start: 06-04-2024 take 1 tablet by mouth every six hours as needed traMADol (Ultram) 50 mg tablet Take 50 mg by mouth every 6 hours if needed. 06/04/2024 Active traZODone hydrochloride 100 mg oral tablet (20 sources) Serotonin Reuptake Inhibitor Start: 07-11-2020 End: 04-21-2022 take 1 tablet by mouth every twenty-four hours as needed traZODone (DESYREL) 100 mg tablet Take 100 mg by mouth at bedtime as needed. For Insomnia 12/23/2020 Active Start: 06-13-2020 End: 07-11-2020 take 50 mg by mouth at bedtime Trazodone Discontinued 50 MG PO AT BEDTIME July 07, 2020 1:10pm July 11, 2020 12:29pm Comment on above: Take 100 mg by mouth at bedtime as needed. For Insomnia 24 hr venlafaxine 75 mg extended release oral capsule (20 sources) Serotonin and Norepinephrine Reuptake Inhibitor Start: 11-12-19 End: 03-26-20 take 1 capsule by mouth once daily venlafaxine ER (EFFEXOR XR) 75 mg 24 hr capsule Take 75 mg by mouth once daily. 02/08/2021 Active Start: 10-14-2020 End: 11-11-2020 take 1 capsule by mouth once daily, then take 2 capsules by mouth once daily Venlafaxine Discontinued 37.5 MG PO DAILY October 14, 2020 12:00am November 11, 2020 10:40am Take 37.5mg for 1 week then increase to 75mg capsule daily. Start: 10-14-2020 End: 11-11-2020 Venlafaxine Discontinued 75 MG PO DAILY October 14, 2020 12:00am November 11, 2020 10:58am Take 37.5 mg capsule for 1 week then increase to 75mg capsule daily. Start: 10-10-2020 End: 10-14-2020 take 0.5 tablet by mouth once daily in the morning, then take 1 tablet by mouth once daily Venlafaxine Discontinued 75 MG PO EVERY MORNING October 10, 2020 12:00am October 14, 2020 4:09pm Take 1/2 tablet for 1 week then increase to 1 tablet daily. take 1 tablet by nichol th once daily in the morning VENLAFAXINE HCL 75 MG TABS 1 tablet by mouth every morning venlafaxine [id number] Liz Major AT Comment on above: Take 75 mg by mouth once daily. (3 sources) Singulair Tramadol Venlafaxine Completed/Discontinued Medications Medication Drug Class(es) Dates Sig (Normalized) Sig (Original) acetaminophen 325 mg oral tablet (4 sources) Start: 05-18-2024 End: 05-18-2024 take 1 dose by mouth once as needed for pain 650 mg, ORAL, ONCE, 1 dose, On Tue05/18/24 at 1400, If ordered PRN for pain, patient/guardian may elect to receive this medication for higher pain levels INSTEAD of the opioid, if preferred: N/A Start: 04-20-2024 End: 04-20-2024 take 1 dose by mouth once as needed for pain 650 mg, ORAL, ONCE, 1 dose, On Tue04/20/24 at 1400, If ordered PRN for pain, patient/guardian may elect to receive this medication for higher pain levels INSTEAD of the opioid, if preferred: N/A Start: 03-23-2024 End: 03-23-2024 take 1 dose by mouth once as needed for pain 650 mg, ORAL, ONCE, 1 dose, On Tue03/23/24 at 1400, If ordered PRN for pain, patient/guardian may elect to receive this medication for higher pain levels INSTEAD of the opioid, if preferred: N/A Start: 04-19-2021 acetaminophen (TYLENOL) tablet 650 mg 0.8 ml adalimumab 50 mg/ml auto-injector (8 sources) Tumor Necrosis Factor Cookie Start: 07-11-2020 End: 03-26-2022 Adalimumab (Humira Pen) 40 mg/0.8 mL pen injector kit Discontinued 0 SC .COMPLEX July 11, 2020 1:00am March 26, 2022 11:21am inject one - 40 mg/0.8 mL pen every 2 weeks subcut adalimumab (HUMI RA) 40 MG/0.8ML injection Inject 40 mg into the skin once 40mg/0.8ml every other week subcutaneously 0 Active baclofen 10 mg oral tablet (20 sources) gamma-Aminobutyric Acid-ergic Agonist Start: 09-20-2023 End: 11-14-2024 take 1 tablet by mouth three times daily baclofen 10 mg tablet Take 10 mg by mouth three times a day. 09/20/2023 11/14/2024 Discontinued Start: 04-20-2021 End: 04-20-2021 take 10 mg by mouth once daily 10 mg, Oral, DAILY, Fir st dose on 04/20/21 at 0900 Start: 06-13-2020 End: 11-11-2020 take 10 mg by mouth three times daily Baclofen Discontinued 10 MG PO THREE TIMES A DAY June 13, 2020 1:00am November 11, 2020 10:39am cephalexin 500 mg oral capsule (4 sources) Cephalosporin Antibacterial Start: 05-30-2023 End: 06-09-2023 cephalexin (Keflex) capsule 500 mg 1 ml dexamethasone phosphate 4 mg/ml injection (7 sources) Corticosteroid Start: 03-25-2024 End: 03-25-2024 dexAMETHasone (Decadron) injection 10 mg Start: 03-25-2024 End: 03-25-2024 take 10 mg by mouth once 10 mg, Oral, Once, On Sun at 1215, For 1 dose Start: 04-19-2021 End: 04-19-2021 dexamethasone (PF) (DECADRON ) injection 6 mg diphenhydrAMINE hydrochloride 25 mg oral capsule (10 sources) Histamine-1 Receptor Antagonist Start: 05-18-2024 End: 05-18-2024 take 1 dose by mouth once 25 mg, ORAL, ONCE, 1 dose, On Tue05/18/24 at 1400 Start: 04-20-2024 End: 04-20-2024 take 1 dose by mouth once 25 mg, ORAL, ONCE, 1 dose, O n Tue04/20/24 at 1400 Start: 03-23-2024 End: 03-23-2024 take 1 dose by mouth once 25 mg, ORAL, ONCE, 1 dose, O n Tue03/23/24 at 1400 Start: 06-13-2020 End: 06-13-2020 take 1 capsule by mouth at bedtime Diphenhydramine Hcl (Benadryl) 25 mg capsule Discontinued 25 MG PO AT BEDTIME June 13, 2020 1:00am June 13, 2020 12:25pm doxycycline hyclate 100 mg oral tablet (7 sources) Tetracycline-class Drug Start: 02-10-2021 End: 03-13-2021 take 100 mg by mouth twice daily Doxycycline Hyclate Discontinued 100 MG PO TWICE A DAY February 10, 2021 12:00am March 13, 2021 2:58pm enteric contrast (will be provided with radiology test) (20 sources) Start: 12-20-2023 End: 11-14-2024 enteric contrast (will be provided with radiology test) For CT ENTEROGRAPHY W IVCON order Administer, As Directed One Time Only, via Oral, Rectal, both Oral and Rectal, Enteric Tube, Stoma or Indwelling Catheter, Enteric Contrast as designated per enteric contrast guidelines. 1 Each 12/20/2023 11/14/2024 Discontinued Start: 12-20-[address] (will be provided with radiology test) For CT ENTEROGRAPHY W IVCON order Administer, As Directed One Time Only, via Oral, Rectal, both Oral and Rectal, Enteric Tube, Stoma or Indwelling Catheter, Enteric Contrast as designated per enteric contrast guidelines. 1 Each 12/20/2023 Active Start: 12-20-[address] (will be provided with radiology test) For CT ENTEROGRAPHY W IVCON order Administer, As Directed One Time Only, via Oral, Rectal, both Oral and Rectal, Enteric Tube, Stoma or Indwelling Catheter, Enteric Contrast as designated per enteric contrast guidelines. 1 Each 0 12/20/2023 Active hydrocortisone 100 mg injection (3 sources) Corticosteroid Start: 05-18-2024 End: 05-18-2024 100 mg, INTRAVENOUS, ONCE, 1 dose, On Tue05/18/24 at 1400 Start: 04-20-2024 End: 04-20-2024 100 mg, INTRAVENOUS, ONCE, 1 dose, On Tue04/20/24 at 1400 Start: 03-23-2024 End: 03-23-2024 100 mg, INTRAVENOUS, ONCE, 1 dose, On Tue03/23/24 at 1400 ibuprofen 600 mg oral tablet (18 sources) Nonsteroidal Anti-inflammatory Drug Start: 07-15-2023 End: 07-15-2023 ibuprofen tablet 600 mg Start: 04-19-2021 End: 04-19-2021 ibuprofen (ADVIL;MOTRIN) tab let 400 mg Start: 11-16-2019 End: 04-20-2021 take 600 mg by mouth twice daily Ibuprofen Discontinued 600 MG PO TWICE A DAY November 16, 2019 12:00am June 13, 2020 11:54am Start: 02-13-2016 End: 12-20-2023 take 1 tablet by mouth every six hours as needed ibuprofen (MOTRIN) 600 mg tablet Take 1 tablet by mouth every 6 hours as needed for Pain. Take with food. 60 tablet 3 02/13/2016 12/20/2023 Discontinued Comment on above: Take 1 tablet by nichol th every 6 hours as needed for Pain. Take with food. inulin 200 mg / lactobacillus rhamnosus gg [id number] unt chewable tablet (8 sources) Start: 03-03-2020 End: 03-26-2022 Lactobac. Rhamnosus Gg-Inulin ([facility]) 10 billion cell -200 mg tablet,chewable Discontinued TABLET PO March 03, 2020 12:00am March 26, 2022 11:21am iopamidol (Isovue-370) 76 % injection 75 mL (2 sources) Start: 10-31-2023 End: 10-31-2023 iopamidol (Isovue-370) 76 % injection 75 mL iv contrast (will be provided with radiology test) (20 sources) Start: 12-20-2023 End: 11-14-2024 iv contrast (will be provided with radiology test) CT Enterography W Inject, intravenously, once for 1 dose.No IV access, insert saline lock prior to the beginning of sedation, infusion, injection of imaging exam. Discontinue saline lock post exam. If Pt. has a central line or IVAD, may access for administration according to line specific nursing protocol. Once exam is complete flush line and de-access according to line specific nursing protocol in the CT contrast administration guidelines link. 1 Each 12/20/2023 11/14/2024 Discontinued Start: 12-20-2023 iv contrast (w ill be provided with radiology test) CT Enterography W Inject, intravenously, once for 1 dose.No IV access, insert saline lock prior to the beginning of sedation, infusion, injection of imaging exam. Discontinue saline lock post exam. If Pt. has a central line or IVAD, may access for administration according to line specific nursing protocol. Once exam is complete flush line and de-access according to line specific nursing protocol in the CT contrast administration guidelines link. 1 Each 12/20/2023 Active Start: 12-20-2023 iv contrast (w ill be provided with radiology test) CT Enterography W Inject, intravenously, once for 1 dose.No IV access, insert saline lock prior to the beginning of sedation, infusion, injection of imaging exam. Discontinue saline lock post exam. If Pt. has a central line or IVAD, may access for administration according to line specific nursing protocol. Once exam is complete flush line and de-access according to line specific nursing protocol in the CT contrast administration guidelines link. 1 Each 0 12/20/2023 Active 1 ml ketorolac tromethamine 30 mg/ml cartridge (2 sources) Nonsteroidal Anti-inflammatory Drug, Cyclooxygenase Inhibitor Start: 10-31-2023 End: 10-31-2023 ketorolac (Toradol) injection 15 mg melatonin 5 mg oral capsule (7 sources) Start: 06-13-2020 End: 06-13-2020 Melatonin Discontinued MG PO June 13, 2020 1:00am June 13, 2020 12:25pm metaxalone 800 mg oral tablet (17 sources) Start: 03-13-2021 End: 07-13-2021 take 1 tablet by mouth three times daily Metaxalone (Skelaxin) 800 mg tablet Discontinued 800 MG PO THREE TIMES A DAY March 13, 2021 12:00am July 13, 2021 10:00am Start: 11-16-2019 End: 06-13-2020 take 800 mg by mouth three times daily Metaxalone Discontinued 800 MG PO THREE TIMES A DAY November 16, 2019 12:00am June 13, 2020 11:54am methylPREDNISolone 40 mg injection (2 sources) Corticosteroid Start: 10-31-2023 End: 10-31-2023 methylPREDNISolone sod suc (PF) (SOLU-Medrol) 40 MG injection 40 mg 1 ml morphine sulfate 4 mg/ml injection (1 source) Opioid Agonist Start: 04-19-2021 End: 04-19-2021 morphine sulfate (PF) injection 4 mg naproxen 500 mg oral tablet (4 sources) Nonsteroidal Anti-inflammatory Drug Start: 10-03-2024 End: 10-03-2024 take 500 mg by mouth once 500 mg, Oral, Once, On Tue10/03/24 at 2350, For 1 dose Start: 10-03-2024 End: 10-18-2024 take 1 tablet by mouth twice daily as needed for pain naproxen (Naprosyn) 500 MG tablet Take 1 tablet (500 mg) by mouth 2 times daily as needed for mild pain (1-3) for up to 15 days. 30 tablet 10/03/2024 10/18/2024 Active 2 ml ondansetron 2 mg/ml injection (7 sources) Serotonin-3 Receptor Antagonist Start: 10-31-2023 End: 10-31-2023 ondansetron (Zofran) injection 4 mg Start: 04-19-2021 End: 04-19-2021 ondansetron (ZOFRAN) injecti on 4 mg Start: 02-03-2020 End: 04-21-2021 take 1 tablet by mouth three times daily as needed for nausea ondansetron (ZOFRAN) 4 MG tablet Take 1 tablet by mouth 3 times daily as needed for Nausea or Vomiting 15 tablet 0 04/21/2021 Active oxyCODONE hydrochloride 5 mg oral tablet (1 source) Opioid Agonist OXYCODONE HCL 5 MG TABS 1 tablet by mouth as needed oxycodone [id number] Lizashley Major AT phenazopyridine hydrochloride 100 mg oral tablet (6 sources) Start: 2 End: 2 take 100 mg by mouth three times daily Phenazopyridine Discontinued 100 MG PO THREE TIMES A DAY 6 2 September 23, 2021 12:00am September 25, 2021 12:03am remdesivir 200 mg in sodium chloride 0.9 % 250 mL IVPB (1 source) Start: 1 End: 1 remdesivir 200 mg in sodium chloride 0.9 % 250 mL IVPB risankizumab-rzaa 600 mg in D5W 100 mL (SKYRIZI) (3 sources) Start: 4 End: 4 600 mg, INTRAVENOUS, Administer over 60 Minutes, ONCE, 1 dose, On Tue05/18/24 at 1400, EXP: 05/18/24 @ 2100 Approximate total volume: 120 mL Refrigerate. Protect From Light. Allow to warm to room temperature prior to start of infusion. Start: 04-20-2024 End: 04-20-2024 600 mg, INTRAVENOUS, Adminis ter over 60 Minutes, ONCE, 1 dose, On Tue04/20/24 at 1400, EXP: 04/20/24 @ 2100 Refrigerate. Protect From Light. Allow to warm to room temperature prior to start of infusion. Start: 03-23-2024 End: 03-23-2024 600 mg, INTRAVENOUS, Adminis ter over 60 Minutes, ONCE, 1 dose, On Tue03/23/24 at 1400, Approx Total Volume: 120 mL EXP: 03/23/24 @ 2100 Refrigerate. Protect From Light. Allow to warm to room temperature prior to start of infusion. 50 ml sodium chloride 9 mg/m l injection (8 sources) Start: 10-31-2023 End: 10-31-2023 sodium chloride 0.9 % bolus 1,000 mL Start: 04-20-2021 take 1 dose intraven ously twice daily 5-40 mL, IntraVENous, EVERY 12 HOURS SCHEDULED (2 times per day), First dose on Tue04/20/21 at 0900 For Line Patency: Peripheral IV = 5 mL; Midline or Central Line = 10 mL/lumen. If following IV push medication, administer flush at same rate as the IV push. Flush volume is determined by type of infusion therapy being given. For non-viscous solutions use: Peripheral IV = 5 mL Midline or Central Line = 10 mL/lumen For viscous solutions (i.e. blood components, parenteral nutrition, contrast media, or after obtaining blood sample) use: Peripheral IV = 10 mL Midline or Central Line = 20 mL/lumen Start: 04-20-2021 take 25 mL intraveno usly every hour as needed 25 mL, IntraVENous, at 100 mL/hr, PRN, If patient receiving piggyback infusions without ordered maintenance IV fluids or with frequent/long duration piggyback infusions, Starting on Tue04/20/21 at 0109 Administer at the same rate as the piggyback being infused. Start: 04-20-2021 take 5-40 mL intrave nously once as needed 5-40 mL, IntraVENous, PRN, Line Care, After every IV line use, Starting on Tue04/20/21 at 0109 For Line Patency: Peripheral IV = 5 mL; Midline or Central Line = 10 mL/lumen. If following IV push medication, administer flush at same rate as the IV push. Flush volume is determined by type of infusion therapy being given. For non-viscous solutions use: Peripheral IV = 5 mL Midline or Central Line = 10 mL/lumen For viscous solutions (i.e. blood components, parenteral nutrition, contrast media, or after obtaining blood sample) use: Peripheral IV = 10 mL Midline or Central Line = 20 mL/lumen Start: 04-19-2021 End: 04-19-2021 0.9 % sodium chloride bolus topiramate 25 mg oral tablet (10 sources) Start: 11-16-2019 End: 04-20-2021 take 25 mg by mouth at bedtime Topiramate Discontinued 25 MG PO AT BEDTIME November 16, 2019 12:00am March 13, 2021 2:59pm Start: 11-16-2019 End: 03-13-2021 take 25 mg by mouth at bedtime Topiramate Discontinued 25 MG PO AT BEDTIME November 16, 2019 9:16am March 13, 2021 2:59pm NEGATED: Highlighted row has not occurred! (1 source) Start: 12-03-2023 End: 12-03-2023 Problems Active Problems Problem Classification Problem Date Documented Da te Episodic/Chronic Allergic reactions (7 sources) Allergic condition; Translations: [Allergy, unspecified, initial encounter] 03-03-2020 Episodic Anxiety disorders (5 sources) Mixed anxiety and depressive disorder; Translations: [Anxiety disorder, unspecified] Chronic Asthma (12 sources) Unspecified asthma, uncomplicated; Translations: [Asthma] Onset: 7 Chronic Bacterial infection; unspecified site (1 source) Other specified bacterial agents as the cause of diseases classified elsewhere; Translations: [Bacterial sinusitis] Onset: 3 Episodic Cardiac dysrhythmias (5 sources) Tachycardia; Translations: [Tachycardia, unspecified] Episodic Digestive congenital anomalies (1 source) Other specified congenital malformations of intestine; 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] Onset: 5 Chronic Gastrointestinal hemorrhage (2 sources) Blood-tinged feces; Translations: [Melena] Onset: 5 Episodic Genitourinary symptoms and ill-defined conditions (1 source) Mixed urinary incontinence; Translations: [Mixed incontinence] Chronic Hemorrhoids (2 sources) Residual hemorrhoidal skin tags; Translations: [Other hemorrhoids] Onset: 5 Episodic Malaise and fatigue (1 source) Asthenia; Translations: [Weakness] Episodic Menopausal disorders (9 sources) Menopausal flushing; Translations: [Menopausal and female climacteric states] 11-11-2020 Chronic Nausea and vomiting (2 sources) Nausea and vomiting; Translations: [Nausea with vomiting, unspecified] 12-20-2023 Episodic Nutritional deficiencies (20 sources) Deficiency of macronutrients; Translations: [Unspecified severe protein-calorie malnutrition] Onset: 0 02-11-2020 Chronic Other aftercare (1 source) Drug-induced immunodeficiency ; Translations: [Immunocompromised state due to drug therapy (HCC)] Episodic Other and unspecified benign neoplasm (1 source) Hemangioma of liver; Translations: [Hemangioma of intra-abdominal structures] 01-04-2025 Episodic Other circulatory disease (20 sources) Peripheral neurogenic pain; Translations: [Other specified disorders of arteries and arterioles] Onset: 1 02-24-2021 Chronic Other connective tissue disease (1 source) Pain in left foot; Translations: [Pain in left foot] 07-15-2023 Episodic Other female genital disorders (5 sources) Pain in female genitalia on intercourse; Translations: [Unspecified dyspareunia] 03-26-2022 Chronic Other female genital disorders (2 sources) Unspecified dyspareunia; Translations: [Dyspareunia] Chronic Other female genital disorders (1 source) Lesion of cervix; Translations: [Noninflammatory disorder of cervix uteri, unspecified] 05-21-2022 Episodic Other female genital disorders (2 sources) Vaginospasm; Translations: [Vaginismus] Episodic Other gastrointestinal disorders (20 sources) Irritable bowel syndrome; Translations: [Irritable bowel syndrome without diarrhea] Onset: 1 03-03-2020 Chronic Other gastrointestinal disorders (2 sources) Constipation; Translations: [Constipation, unspecified] 10-31-2023 Episodic Other gastrointestinal disorders (2 sources) H/O: ulcerative colitis; Translations: [Personal history of other diseases of the digestive system] 10-31-2023 Episodic Other injuries and conditions due to external causes (2 sources) Hematoma; Translations: [Other injury of unspecified body region, initial encounter] 10-03-2024 Episodic Other injuries and conditions due to external causes (2 sources) Other injury of unspecified body region, initial encounter; Translations: [Other injury of unspecified body region, initial encounter] Onset: 5 Episodic Other lower respiratory disease (1 source) Cough; Translations: [Acute cough] 01-28-2025 Episodic Other nervous system disorders (3 sources) Brachial plexus disorders; Translations: [BRACHIAL PLEXUS DISORDERS] Onset: 7 Chronic Other nervous system disorders (1 source) Meralgia paresthetica, right lower limb; Translations: [Meralgia paresthetica of right side] Onset: 5 Chronic Other nervous system disorders (1 source) Numbness; Translations: [Anesthesia of skin] 11-14-2024 Episodic Other non-traumatic joint disorders (14 sources) Hip pain; Translations: [Pain in right hip] 07-13-2021 Episodic Other non-traumatic joint disorders (6 sources) Pain in right hip; Translations: [Pain in joint, pelvic region and thigh] Episodic Other screening for suspected conditions (not mental disorders or infectious disease) (7 sources) Patient encounter status; Translations: [Encounter for screening for other suspected endocrine disorder] 03-13-2021 Episodic Other skin disorders (2 sources) Eruption; Translations: [Rash and other nonspecific skin eruption] 12-20-2023 Episodic Other upper respiratory disease (1 source) Congestion of nasal sinus; Translations: [Nasal congestion] 01-28-2025 Episodic Other upper respiratory infections (8 sources) Sinusitis; Translations: [Chronic sinusitis, unspecified] Onset: 3 02-10-2021 Chronic Other upper respiratory infections (20 sources) Upper respiratory infection; Translations: [Acute upper respiratory infection, unspecified] Onset: 4 02-10-2021 Episodic Otitis media and related conditions (2 sources) Acute suppurative otitis media without spontaneous rupture of ear drum; Translations: [Acute suppurative otitis media without spontaneous rupture of ear drum, bilateral] 01-28-2025 Episodic Pancreatic disorders (not diabetes) (2 sources) Pancreatic duct disorder; Translations: [Other specified diseases of pancreas] Onset: 5 01-04-2025 Episodic Phlebitis; thrombophlebitis and thromboembolism (1 source) H/O: Deep vein thrombosis; Translations: [Personal history of other venous thrombosis and embolism] 01-04-2025 Episodic Prolapse of female genital organs (1 source) Midline cystocele; Translations: [Cystocele, midline] Chronic Regional enteritis and ulcerative colitis (20 sources) Ulcerative colitis; Translations: [Ulcerative colitis, unspecified with unspecified complications] Onset: Chronic Residual codes; unclassified (7 sources) Insomnia; Translations: [Insomnia, unspecified] 10-10-2020 Episodic Residual codes; unclassified (1 source) Swelling - edema - symptom; Translations: [Edema, unspecified] Episodic Residual codes; unclassified (7 sources) Peripheral edema; Translations: [Edema, unspecified] 03-13-2021 Episodic Residual codes; unclassified (6 sources) Edema; Translations: [Edema, unspecified] 03-13-2021 Episodic Residual codes; unclassified (4 sources) Family history of hypercoagulable state; Translations: [Family history of diseases of the blood and blood-forming organs and certain disorders involving the immune mechanism] 03-16-2024 Episodic Spondylosis; intervertebral disc disorders; other back problems (7 sources) Neck pain; Translations: [Cervicalgia] 11-09-2022 Episodic Thyroid disorders (20 sources) Multinodular goiter; Translations: [Nontoxic multinodular goiter] Onset: 0 06-01-2021 Chronic Unclassified (2 sources) Unknown / UNK(Unknown) Onset: 7 Unclassified (1 source) oral contrast Onset: 4 Urinary tract infections (5 sources) Recurrent urinary tract infection; Translations: [Urinary tract infection, site not specified] Episodic Past or Other Problems Problem Classification Problem Date Documented Da te Episodic/Chronic Abdominal pain (20 sources) Bilateral pain of inguinal region; Translations: [Right lower quadrant pain] Onset: 01-31-2016 Resolved: 02-07-2018 Episodic Endometriosis (20 sources) Endometriosis (clinical); Translations: [Endometriosis, unspecified] Onset: 02-13-2016 Resolved: 02-07-2018 02-07-2018 Chronic Inflammatory diseases of female pelvic organs (20 sources) Adhesion of pelvis; Translations: [Female pelvic peritoneal adhesions (postinfective)] Onset: 02-13-2016 Resolved: 02-07-2018 02-07-2018 Episodic Noninfectious gastroenteritis (20 sources) Colitis; Translations: [Noninfective gastroenteritis and colitis, unspecified] Onset: 02-07-2020 02-11-2020 Episodic Nonmalignant breast conditions (20 sources) Breast lump; Translations: [Unspecified lump in unspecified breast] Onset: 02-20-2007 Resolved: 02-07-2018 02-07-2018 Episodic Nonspecific chest pain (20 sources) Atypical chest pain; Translations: [Other chest pain] Onset: 09-23-2022 09-23-2022 Episodic Other connective tissue disease (20 sources) Adhesive capsulitis of right shoulder; Translations: [Adhesive capsulitis of right shoulder] Onset: 12-22-2020 12-22-2020 Episodic Other gastrointestinal disorders (1 source) Swollen abdomen; Translations: [Abdominal distention] Episodic Other gastrointestinal disorders (2 sources) Constipation, unspecified; Translations: [Constipation, unspecified] Onset: 10-31-2023 Episodic Other gastrointestinal disorders (2 sources) Personal history of other diseases of the digestive system; Translations: [Personal history of other diseases of the digestive system] Onset: 10-31-2023 Episodic Other injuries and conditions due to external causes (1 source) Unspecified injury of muscle(s) and tendon(s) of the rotator cuff of right shoulder, initial encounter; Translations: [Unspecified injury of muscle(s) and tendon(s) of the rotator cuff of right shoulder, initial encounter] Onset: 04-18-2024 Episodic Other non-traumatic joint disorders (16 sources) Disorder of shoulder; Translations: [Other instability, right shoulder] Onset: 12-22-2020 12-22-2020 Episodic Other non-traumatic joint disorders (8 sources) Instability of right shoulder joint; Translations: [Other instability, right shoulder] Onset: 12-22-2020 03-18-2022 Episodic Other skin disorders (1 source) Rash and other nonspecific skin eruption; Translations: [Skin rash] Onset: 12-21-2023 Episodic Pulmonary heart disease (20 sources) Pulmonary embolism; Translations: [Other pulmonary embolism without acute cor pulmonale] Onset: 06-06-2001 02-24-2021 Episodic Residual codes; unclassified (2 sources) Personal history of other complications of , childbirth and the puerperium; Translations: [History of pulmonary embolus during ] Onset: 05-11-2024 Episodic Residual codes; unclassified (2 sources) Family history of diseases of the blood and blood-forming organs and certain disorders involving the immune mechanism; Translations: [Family history of hypercoagulable state] Onset: 05-11-2024 Episodic Screening or history of mental health and substance abuse (20 sources) Personal history of nicotine dependence; Translations: [Personal history of tobacco use] Onset: 12-23-2016 02-24-2021 Episodic Sprains and strains (20 sources) Injury of superior glenoid labrum of shoulder joint; Translations: [Superior glenoid labrum lesion of right shoulder, initial encounter] Onset: 12-22-2020 12-22-2020 Episodic Unclassified (1 source) Problem Unclassified (1 source) Onset: 01-28-2025 01-28-2025 Viral infection (20 sources) Disease caused by 2019-nCoV; Translations: [COVID-19] Onset: 04-19-2021 Episodic Results Test Name Value Interpretation Reference Range Facility MR/PATLizeth 03-22-2025 /[facility] Medical Records Department [address] [place] [address] PAT - Anesthesia 03/22/25 1159 MR#: [id number] Acct: [id number] Name: CALLIE KENNEDY Rep #: [id number] : 1970 54 From: Jovi Penny MD PCP: Milana Grace DO Status:PRE [facility] [place] Y Race: C Location: [facility] [place] Pre-Assessment Diagnosis/Proposed Procedure Planned Operative Procedure(s): RIGHT SHOULDER INTRA ARTICULAR STEROID INJ UNDER FLOUROSCOPY Anesthesia History 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 When Was Last Pacemaker Check QUESTION #4 FULL TEXT: You/Your Family Experience fever (hyperthermia) with Anesthesia Last Oral Intake Last Oral intake: Last Oral Intake NPO since Meds taken in AM with sips of water? Meds patient instructed to take am of surgery PONV PONV - sewer inspector: PONV - sewer inspector Female Yes 03/22/25 11:23 HX of Motion Sickness Yes 03/22/25 11:23 HX of N/V After Surgery No 03/22/25 11:23 Non-Smoker Yes 03/22/25 11:23 Duration of Surgery greater No 03/22/25 11:23 than 60 minutes Number of Risk Factors 3 03/22/25 11:23 PONV Score Moderate Risk 03/22/25 11:23 Height Weight Height Weight: Anesthesia: Height Weight Height 5 ft 6 in 03/26/24 09:48 Respiratory Assessment Respiratory Assessment - sewer inspector: Respiratory Tract Infection Hx - sewer inspector Hx Respiratory Tract Infection No 03/22/25 11:23 STOP Sleep Apnea STOP Sleep Apnea - sewer inspector: STOP Sleep Apnea - sewer inspector Hx Hypertension No 03/22/25 11:23 Hx Sleep Apnea Yes 03/22/25 11:23 CPAP Yes: USES PRN 03/22/25 11:23 BIPAP No 03/22/25 11:23 Do you snore loudly (louder than talking or can be heard Do you often feel tired/ fatigued/ sleepy during daytime? Has anyone observed you stop breathing during sleep? STOP Results Positive 03/22/25 11:23 QUESTION #5 FULL TEXT : Do you snore loudly (louder than talking or can be heard through closed doors)? 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 Specify any problems Hx of Preganancy in last 3 No 03/22/25 11:23 Months Nurse Filling Out Transfusion VCHRISTIN 03/22/25 11:23 Questions: Date: 03/22/25 03/22/25 11:23 Time: 11:24 03/22/25 11:23 Patient unable to answer at this time (ie. confused, unrespo /Reproduction History /Reproductive History - sewer inspector: /Reproductive Hx- sewer inspector Hx Now No 03/22/25 11:23 Gestational Age (in weeks): EDC: Hx Hx Para Hx Section SAB No 03/22/25 11:23 PFSH Medical History CPAP (continuous positive airway pressure) dependence Sleep apnea Cervical pain (neck) Cervical lesion Wears glasses Post-menopausal Pulmonary embolism DVT (deep venous thrombosis) Migraine headache Back pain Injury of head and neck Ulcerative colitis History of Crohn's disease Former smoker Anxiety and depression Tachycardia Dyspareunia in female Bilateral hip pain COVID Hip pain Screening for thyroid disorder Peripheral edema Edema Sinusitis URI (upper respiratory infection) Insomnia Hot flashes due to menopause Blood clot embolism during , antepartum Asthma IBS (irritable bowel syndrome) Allergies Home Medications ???Medication ???Instructions ???Recorded ???Last Taken ???Type albuterol sulfate 90 mcg/actuation Se (more content not included)... Normal [facility] [id number] 03-21-2025 [id number] HNO ID: [id number] Author: SAYRA MELO RN Service: ? Author Type: Registered Nurse Type: [id number] Filed: 03/21/2025 14:17 Note Text: The patient received a copy of Colonoscopy discharge instructions that contain information for how to contact the physician who performed the procedure and when to seek medical care. [facility] ANES POSTPROC EVALon 025 ANES POSTPROC EVAL HNO ID: [id number] Author: ANNIKA MOTLEY APRN.AGRICULTURE RESEARCH DIRECTOR Service: Anesthesiology Author Type: Nurse Cardiac Care Nurse Type: Anesthesia Postprocedure Evaluation Filed: 03/21/2025 14:17 Note Text: POST ANESTHESIA EVALUATION NOTE : 1970 Procedure Summary Date: 03/21/25 Room / Location: Ambulatory Surgery Anesthesia Start: 1333 Anesthesia Stop: 1416 Procedure: COLONOSCOPY DIAGNOSTIC Diagnosis: Crohn's disease of large intestine without complication (HCC) Scheduled Providers: Alia Parmar MD Responsible Provider: Annika Motley APRN.CRNA Anesthesia Type: MAC ASA Status: 3 Anesthesia Type: MAC Last Vitals Vitals Value Taken Time BP 130/75 03/21/25 14:14 Temp 36.3 ?C (97.3 ?F) 03/21/25 14:14 Pulse 97 03/21/25 14:14 Resp 16 03/21/25 14:14 SpO2 97 % 03/21/25 14:14 Post Anesthesia Patient Status Patient Evaluation: bedside. Anticipated Disposition: phase 2 then home. Neurological Status: aware and responsive. Pulmonary Status: breathing comfortably on room air Airway Control: returned to baseline unsupported. Cardiovascular Status: stable. Pain Management: clinically adequate Postoperative Hydration: acceptable. Intraoperative Events: no significant anesthesia events Post Operative Nausea/Vomiting Status: no significant post operative nausea or vomiting Recommendation: continue current plan of care. Anesthesia Observations No Documentation SIGNATURE: Annika Motley APRN.CRNA PATIENT NAME: Callie Kennedy DATE: March 21, 2025 TIME: 2:16 PM CSN: [id number] Normal [facility] ANES PRE-OPon 03-21-2025 ANES PRE-OP HNO ID: [id number] Author: ANNIKA MOTLEY APRN.CRNA Service: Anesthesiology Author Type: Nurse Cardiac Care Nurse Type: Anesthesia Preprocedure Evaluation Filed: 03/21/2025 13:17 Note Text: ANESTHESIOLOGY DAY OF SURGERY NOTE : 1970 Procedure Information Date/Time: 03/21/25 1300 Scheduled providers: Alia Parmar MD Procedure: COLONOSCOPY DIAGNOSTIC Location: Ambulatory Surgery Estimated body mass index is 25.82 kg/m? as calculated from the following: Height as of this encounter: 167.6 cm (5' 6"). Weight as of this encounter: 72.6 kg (160 lb). Most recent hematocrit and potassium results: Hematocrit 38.4 03/01/2025 Potassium 4.1 03/01/2025 Relevant Problems CARDIO (+) Pulmonary embolism (HCC) I - PHYSICAL EVALUATION AIRWAY Patient intubated: No. Tracheostomy tube not present Mallampati: II. TM distance: >3 FB. Neck ROM: full ROM without neurological symptoms. Mouth opening: >3 FB. Short neck: no. Thick neck: no II - ANESTHESIA PLAN ASA Score: 3 Anesthetic Plan: MAC NPO Status: adequate Informed Consent Anesthetic risks, benefits, alternatives, personnel and consent discussed: yes. Patient / Responsible Republican agrees to proceed: yes Patient / Surrogate agrees to blood products: blood products not planned Vitals Value Taken Time BP Pulse 87 03/21/25 12:55 Resp 18 03/21/25 12:55 Temp 36.4 ?C (97.6 ?F) 03/21/25 12:55 SpO2 Outpatient Medications as of 03/21/2025 Medication Sig SKYRIZI 360 mg/2.4 mL (150 mg/mL) wearable injector INSERT 1 CARTRIDGE INTO ON-BODY INJECTOR AND INJECT 360 MG UNDER THE SKIN EVERY 8 WEEKS polyethylene glycol 3350 17 gram packet Take 17 g by mouth once daily. traZODone (DESYREL) 100 mg tablet Take 100 mg by mouth at bedtime as needed. For Insomnia venlafaxine ER (EFFEXOR XR) 75 mg 24 hr capsule Take 75 mg by mouth once daily. montelukast (SINGULAIR) 10 mg tablet Take 1 tablet by mouth once daily. albuterol HFA (PROVENTIL HFA, VENTOLIN HFA) 90 mcg/actuation inhaler Inhale 2 Puffs as instructed every 6 hours. Facility-Administered Medications as of 03/21/2025 Medication Dose Route Frequency lidocaine (PF) 10 mg/mL (1 %) 1-2 mg injection (XYLOCAINE) 0.1-0.2 mL INTRADERMAL PRN lactated ringers iv infusion 30 mL/hr INTRAVENOUS CONTINUOUS I have interviewed and examined the patient. I have reviewed the medical record and/or the pre-anesthesia evaluation, pertinent labs, and test results. This contains updated information obtained within 48 hours of Surgery/Procedure. SIGNATURE: Annika Motley APRN.AGRICULTURE RESEARCH DIRECTOR PATIENT NAME: Callie Kennedy DATE: March 21, 2025 TIME: 1:17 PM CSN: [id number] Normal [facility] CNCOon 03-21-2025 CNCO Letter Text Normal [facility] Colonoscopyon 03-21-2025 Colonoscopy [facility] Patient Name: Callie Kennedy Procedure Date: 03/21/2025 1:13 PM Date of : 1970 Admit Type: Outpatient Age: 54 Room: [place] [address] Gender: Female Note Status: Finalized Attending MD: Alia Parmar MD, [id number] Procedure: Colonoscopy Indications: Crohn's disease of the colon, Follow-up of Crohn's disease of the colon, Disease activity assessment of Crohn's disease of the colon Providers: Alia Parmar MD Patient Profile: Refer to note in patient chart for documentation of history and physical. Last Colonoscopy: 2023. Referring Physician: Alia Parmar MD (Referring MD) Medicines: Monitored Anesthesia Care, See the Anesthesia note for documentation of the administered medications Complications: No immediate complications. Requesting Provider: Procedure: Pre-Anesthesia Assessment: - Prior to the procedure, a History and Physical was performed, and patient medications and allergies were reviewed. The patient's tolerance of previous anesthesia was also reviewed. The risks and benefits of the procedure and the sedation options and risks were discussed with the patient. All questions were answered, and informed consent was obtained. Prior Anticoagulants: The patient has taken no anticoagulant or antiplatelet agents. ASA Grade Assessment: See anesthesia record. After reviewing the risks and benefits, the patient was deemed in satisfactory condition to undergo the procedure. After I obtained informed consent, the scope was passed under direct vision. Throughout the procedure, the patient's blood pressure, pulse, and oxygen saturations were monitored continuously. The Colonoscope was introduced through the anus and advanced to the terminal ileum, with identification of the appendiceal orifice and IC valve. I was present and participated during the entire procedure, including non-rico portions, and during the administration and monitoring of Moderate Sedation. The colonoscopy was performed without difficulty. The patient tolerated the procedure well. The quality of the bowel preparation was good. The ileocecal valve, appendiceal orifice, and rectum were photographed. Moderate Sedation: MAC anesthesia was administered by the anesthesia team. MAC anesthesia was administered by the anesthesia team. Findings: The digital rectal exam findings include non-thrombosed external hemorrhoids. Pertinent negatives include normal sphincter tone and no palpable rectal lesions. Non-bleeding internal hemorrhoids were found during retroflexion. The hemorrhoids were small. Scattered pseudopolyps were found in the descending colon and at the splenic flexure. The pseudopolyp at the splenic flexure was long and pedunculated on a wide stalk. Biopsies were taken with a cold forceps for histology. The pathology specimen was placed into Bottle Number 1. The terminal ileum appeared normal for 15 cm. The ascending colon and cecum appeared normal. Biopsies were taken with a cold forceps for histology. The pathology specimen was placed into Bottle Number 2. The transverse colon appeared normal. Biopsies were taken with a cold forceps for histology. The pathology specimen was placed into Bottle Number 3. The descending colon appeared normal. Biopsies were taken with a cold forceps for histology. The pathology specimen was placed into Bottle Number 4. Scarring was noted on the descending colon mucosa. The rectum, recto-sigmoid colon and sigmoid colon appeared normal. Biopsies were taken with a cold forceps for histology. The pathology specimen was placed into Bottle Number 5. The exam was otherwise without abnormality. Impression: - Non-thrombosed external hemorrhoids found on digital rectal exam. - Non-bleeding internal hemorrhoids. - Pseudopolyps in the descending colon and at the splenic flexure. Biopsied. - The examined portion of the ileum was normal. - The ascending colon and cecum are normal. Biopsied. - The transverse colon is normal. Biopsied. - The descending colon is normal. Biopsied. - The rectum, sigmoid colon and recto-sigmoid colon are normal. Biopsied. - The examination was otherwise normal. Recommendation: - Patient has a contact number available for emergencies. The signs and symptoms of potential delayed complications were discussed with the patient. Return to normal activities tomorrow. Written discharge instructions were provided to the patient. - Resume previous diet. - Continue present medications. - Repeat colonoscopy in 3 years for surveillance based on pathology results. - Return to referring physician as previously scheduled. - The patient is not currently taking anticoagulant or antiplatelet agents. Procedure Code(s): --- Professional --- 00986, Colonoscopy, flexibl (more content not included)... Normal [facility] HISTORY PHYSICALon HISTORY PHYSICAL HNO ID: [id number] Author: ALIA PARMAR MD Service: Gastroenterology Author Type: Physician Type: H&P Filed: 03/21/2025 13:14 Note Text: Endoscopy pre-operative HANDP HANDP completed prior to the start time of the procedure. IMPRESSION AND PLAN HPI: This is a 54 year old female. For colonoscopy. H/o crohn's disease Pertinent Review of Systems: GI: See HPI All other reviewed and negative other than HPI. 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 Had thoracic outlet decompression surgery on the right in 2017 PMH - PAST MEDICAL HISTORY OF right shoulder work injury, resolving with Physical Therapy and pain management Pulmonary embolism (HCC) 06/06/2001 sister has a clotting disorder but patient wasn't tested. This occured when she was on bedrest with twins developed bilateral DVT, then PE. Was on heparin until they were born (delivered at 30 weeks) was on an oral blood thinner for six months and then was taken off Regional enteritis of unspecified site Crohn disease Sleep apnea TOS (thoracic outlet syndrome) Ulcerative colitis (HCC) PAST SURGICAL HISTORY: PAST SURGICAL HISTORY Procedure Laterality Date DELIVERY ONLY 02/27/2002 emergency section for 30wk gest twins COLONOSCOPY 02/08/2020 MINIMAL ACTIVE COLITIS descending colon, tortuous colon, int hemorrhoids COLONOSCOPY 02/13/2024 EGD 06/01/2022 gastritis, Claudia-Arevalo tear, neg H Pylori EGD W/O [facility] SPEC VARICIES INJ 02/13/2024 EXC CYST/ABERRANT BREAST TISSUE OPEN 1/> LESION 04/25/2009 RIGHT with benign results EXC CYST/ABERRANT BREAST TISSUE OPEN 1/> LESION 04/25/2009 RIGHT with benign results EXCISE LYMPH NODE 04/25/2009 RIGHT with benign results LAPS ABD PRTMANDOMENTUM DX W/WO SPEC BR/WA SPX 05/12/2001 Dr. Jasso, Endo, stage 4 LAPS ABD PRTMANDOMENTUM DX W/WO SPEC BR/WA SPX 06/19/1999 Dr. Jasso, endometriosis LAPS ABD PRTMANDOMENTUM DX W/WO SPEC BR/WA SPX 1997 Dr. Moralez, [place] She found endo (1st dx. of endo) LAPS ABD PRTMANDOMENTUM DX W/WO SPEC BR/WA SPX 08/07/2004 Dr. Jasso. Dx. L'scopy, RIGHT ovarian cystectomy, lysis of adhesions, rigid proctoscopy. (for RIGHT ovarian cyst, stage IV endometriosis LAPS ABD PRTMANDOMENTUM DX W/WO SPEC BR/WA SPX 05/12/2001 Dr. Hussain Jasso.OPERATION: Diagnostic laparoscopy, resection of bilateral endometriomas, and lysis of adhesions LAPS ABD PRTMANDOMENTUM DX W/WO SPEC BR/WA SPX 06/17/1999 Dr. Hussain Jasso. OPERATION: Laparoscopic excision of endometriosis. LAPS ABD PRTMANDOMENTUM DX W/WO SPEC BR/WA SPX 06/17/1999 Dr. Payton OPERATION: Excision of rectal endometriosis, mobilization of the rectum and rigid sigmoidoscopy. ORTHOPEDICS SURGERY HX Right 12/13/2018 artoroscopic rt shoulder PAST SURGICAL HISTORY OF age 4 umbillical hernia PAST SURGICAL HISTORY OF breast cysts x3 surgeries PAST SURGICAL HISTORY OF 12/2006 TRIGGER FINGER RELEASE RIGHT HAND PECTORALIS MINOR TENDON RELEASE (COMP CODE 37942) Right RIB RESECTION TOTAL Right SHOULDER ARTHROSCOPY/SURGERY Right 12/13/2018 Dr Hernandez, repair labrum tear SHOULDER SURGERY HX Right 12/13/2017 OBJECTIVE: PHYSICAL EXAM: VITALS: Pulse 87 Temp 36.4 ?C (97.6 ?F) (Temporal) Resp 18 Ht 167.6 cm (5' 6") Wt 72.6 kg (160 lb) LMP 03/07/2010 BMI 25.82 kg/m? General appearance: AANDOx3 Respiratory: Normal chest expansion. No audible wheezes. CVS: No shortness of breath, no extremity edema. Regular pulse. Plan: OK to proceed with endoscopy. SIGNATURE: Alia Kaur MD PATIENT NAME: Callie Kennedy [facility] NURSING PROGon 03-21-2025 NURSING PROG HNO ID: [id number] Author: SAYRA MELO RN Service: Nursing Author Type: Registered Nurse Type: Nursing Progress Note Filed: 03/21/2025 14:17 Note Text: POST OP LEARNING RESPONSE INSTRUCTION PROVIDED TO: Patient and Caregiver METHOD OF INSTRUCTION: Written instruction/Handouts Verbal instruction PATIENT / FAMILY RESPONSE: Verbalizes understanding of: POST-PROCEDURE INSTRUCTIONS-Correct actions to take to reduce post procedure complications FOLLOW-UP PLAN: Patient instructed to call with any further issues SUPPLEMENTAL MATERIAL: None REFERRAL (RECOMMENDATION): None Electronically Signed By: Sayra Melo RN In Department: AMBULATORY SURGERY Normal [facility] NURSING PROG HNO ID: [id number] Author: BRISEIDA KENT RN Service: ? Author Type: Registered Nurse Type: Nursing Progress Note Filed: 03/21/2025 12:59 Note Text: PRE OP LEARNING ASSESSMENT PROCEDURE/SURGERY: GI PROCEDURES: Colonoscopy READINESS TO LEARN COGNITIVE ABILITY: Alert and oriented MOTIVATION TO LEARN: Interested FAMILY SUPPORT: Unable to assess - Family not present PATIENT LEARNS BEST BY: Verbal Instruction FACTORS AFFECTING LEARNING: None PHYSICAL LIMITATIONS AFFECTING LEARNING: None Electronically Signed By: Briseida Kent RN In Department: AMBULATORY SURGERY Normal [facility] NURSING PROG HNO ID: [id number] Author: RUSS HEAD RN Service: ? Author Type: Registered Nurse Type: Nursing Progress Note Filed: 03/21/2025 13:55 Note Text: PRE OP LEARNING ASSESSMENT PROCEDURE/SURGERY: GI PROCEDURES: Colonoscopy READINESS TO LEARN COGNITIVE ABILITY: Alert and oriented MOTIVATION TO LEARN: Eager FAMILY SUPPORT: high PATIENT LEARNS BEST BY: Individual Instruction FACTORS AFFECTING LEARNING: None PHYSICAL LIMITATIONS AFFECTING LEARNING: None Electronically Signed By: Russ Head RN In Department: AMBULATORY SURGERY Normal [facility] Pathology biopsy report Javier (Tiss)on 03-21-2025 AP DISCLAIMER Normal [facility] Comment on above: Order Comment: Speci men Type: TISSUE SPECIMENOrdering Facility: [facility] Address: [address] [place] [address] Result Comment: Todd shipman Developed Test (LDT) Disclaimer: Performance characteristics of immunohistochemical, immunofluorescent, and chromogenic in-situ hybridization tests have been determined by the performing laboratory within the [facility] Department of Pathology and Laboratory Medicine ([facility], [facility], [facility], [facility], [facility], [facility], or [facility]) in a manner consistent with CLIA requirements. One or more of these tests may not have been cleared or approved by the FDA. The [facility] Department of Pathology and Laboratory Medicine is regulated under CLIA as qualified to perform high-complexity testing. These tests are used for clinical purposes. These should not be regarded as investigational or for research. Positive and negative controls stain appropriately. Performed By: #### 6 6121-5 ####[facility] LABIA [id number] [place] [address] [place] CASE REPORT Normal [facility] Comment on above: Order Comment: Speci men Type: TISSUE SPECIMENOrdering Facility: [facility] Address: [address] [place] [address] Result Comment: Surg [facility] Pathology Report Case: [id number] Authorizing Provider: Alia Parmar MD Collected: 03/21/2025 01:52 PM Ordering Location: Ambulatory Surgery Received: 03/21/2025 07:51 PM Pathologist: Sukhdeep Knight MD Specimens: A) - Colon, Splenic Flexure, Polyp, pseudopolyp, x2 B) - Colon, Biopsy, cecum/ascending r/o crohns C) - Colon, Transverse, Biopsy, r/o crohns D) - Colon, Descending, Biopsy, r/o crohns E) - Colon, Biopsy, rectum/sigmoid, r/o crohns Performed By: #### 6 6121-5 ####[facility] LABCLIA [id number] [place] [address] [place] CLINICAL HISTORY Normal [facility] Comment on above: Order Comment: Speci men Type: TISSUE SPECIMENOrdering Facility: [facility] Address: [address] [place] [address] Result Comment: Efreno danielle Diagnoses: K50.10 - Crohn's disease of large intestine without complication (HCC) Performed By: #### 6 6121-5 ####[facility] LABCLIA [id number] [address] FINAL DIAGNOSIS Normal [facility] Comment on above: Order Comment: Speci men Type: TISSUE SPECIMENOrdering Facility: [facility] Address: [address] [place] [address] Result Comment: A. C olon, Splenic Flexure, Polyp: - Colonic mucosa with lymphoid aggregate B. Cecum, ascending, Biopsy: - Colonic mucosa with no diagnostic alteration C. Colon, Transverse, Biopsy: - Colonic mucosa with no diagnostic alteration D. Colon, Descending, Biopsy: - Colonic mucosa with no diagnostic alteration E. Colon, Biopsy: - Colonic mucosa with no diagnostic alteration at 2017 EDT Performed By: #### 6 6121-5 ####[facility] LABCLIA [id number] [address] OF [facility] FINAL PERFORMING LAB Normal [facility] Comment on above: Order Comment: Speci men Type: TISSUE SPECIMENOrdering Facility: [facility] Address: [address] [place] [address] Result Comment: Diag nostic interpretation performed at: [facility], [address] [place] [address] CLIA# [id number] [employer] Operator: Sebas Chou MD Performed By: #### 6 6121-5 ####[facility] LABCLIA [id number] [address] GROSS DESCRIPTION Normal [facility] Comment on above: Order Comment: Speci men Type: TISSUE SPECIMENOrdering Facility: [facility] Address: [address] [place] [address] Result Comment: A. C olon, Splenic Flexure, Polyp Received in formalin are multiple pieces of spaulding, soft tissue aggregating to 1.5 x 0.2 x 0.1 cm. Totally submitted in one cassette. B. Colon, Biopsy Received in formalin are multiple pieces of spaulding, soft tissue aggregating to 1.2 x 0.3 x 0.1 cm. Totally submitted in one cassette. C. Colon, Transverse, Biopsy Received in formalin are multiple pieces of spaulding, soft tissue aggregating to 1.3 x 0.3 x 0.1 cm. Totally submitted in one cassette. D. Colon, Descending, Biopsy Received in formalin are multiple pieces of spaulding, soft tissue aggregating to 1.4 x 0.2 x 0.1 cm. Totally submitted in one cassette. E. Colon, Biopsy Received in formalin are multiple pieces of spaulding, soft tissue aggregating to 1.9 x 0.3 x 0.1 cm. Totally submitted in one cassette. DB March 21, 2025 9:48 PM Gross examination performed at [facility], [address] [place] [address] Performed By: #### 6 6121-5 ####[facility] LABCLIA [id number] [place] [address] [place] CNCOon 03-14-2025 CNCO Letter Text Normal [facility] 1,25-dihydroxyvitamin D3 [Ma ss/Vol]on 03-01-2025 VIT D1,25 DIHYDROXY 39.5 pg/mL Normal 19.9-79.3 [facility] Comment on above: Order Comment: Speci men Type: BLOOD SPECIMEN [facility] Address: [address] [place] [address] Performed By: #### 1 649-3 #### [facility] CLIA [id number] [address] [place], [place] [address] [address] [place] CBC W Auto Differential pane l (Bld)on 03-01-2025 Basophils (Bld) [#/Vol] 0.04 10*3/uL Normal <0.11 [facility] Comment on above: Order Comment: Speci men Type: BLOOD SPECIMEN [facility] Address: [address] [place] [address] Performed By: #### 5 7021-8 #### [facility] CLIA [id number] [address] [place] [address] [place] Basophils/100 WBC (Bld) 0.7 % Normal [facility] Comment on above: Order Comment: Speci men Type: BLOOD SPECIMEN [facility] Address: [address] [place] [address] Performed By: #### 5 7021-8 #### [facility] CLIA [id number] [address] Differential cell count method Nom (Bld) Auto Normal [facility] Comment on above: Order Comment: Speci men Type: BLOOD SPECIMEN [facility] Address: [address] [place] [address] Performed By: #### 5 7021-8 #### [facility] CLIA [id number] [address] [place] [address] [place] Eosinophils (Bld) [#/Vol] 0.09 10*3/uL Normal <0.46 [facility] Comment on above: Order Comment: Speci men Type: BLOOD SPECIMEN [facility] Address: [address] [place] [address] Performed By: #### 5 7021-8 #### [facility] CLIA [id number] [address] [place] Eosinophils/100 WBC (Bld) 1.5 % Normal [facility] Comment on above: Order Comment: Speci men Type: BLOOD SPECIMEN Ordering Facility: [facility] Address: [address] [place] [address] Performed By: #### 5 7021-8 #### [facility] CLIA [id number] [address] [place] Erythrocyte distribution width (RBC) [Ratio] 11.9 % Normal 11.5-15.0 [facility] Comment on above: Order Comment: Speci men Type: BLOOD SPECIMEN Ordering Facility: [facility] Address: [address] [place] [address] Performed By: #### 5 7021-8 #### [facility] CLIA [id number] [address] [place] Hematocrit (Bld) [Volume fraction] 38.4 % Normal 36.0-46.0 [facility] Comment on above: Order Comment: Speci men Type: BLOOD SPECIMEN Ordering Facility: [facility] Address: [address] [place] [address] Performed By: #### 5 7021-8 #### [facility] CLIA [id number] 1000 [place] [address] [place] Hemoglobin (Bld) [Mass/Vol] 13.2 g/dL Normal 11.5-15.5 [facility] Comment on above: Order Comment: Speci men Type: BLOOD SPECIMEN Ordering Facility: [facility] Address: [address] [place] [address] Performed By: #### 5 7021-8 #### [facility] CLIA [id number] 1000 [place] [address] [place] Immature granulocytes (Bld) [#/Vol] 10*3/uL Normal <0.10 [facility] Comment on above: Order Comment: Speci men Type: BLOOD SPECIMEN Ordering Facility: [facility] Address: [address] [place] [address] Performed By: #### 5 7021-8 #### [facility] CLIA [id number] 1000 [place] [address] [place] Immature granulocytes/100 WBC (Bld) 0.3 % Normal [facility] Comment on above: Order Comment: Speci men Type: BLOOD SPECIMEN Ordering Facility: [facility] Address: [address] [place] [address] Performed By: #### 5 7021-8 #### [facility] CLIA [id number] 1000 [place] [address] [place] Lymphocytes (Bld) [#/Vol] 2.30 10*3/uL Normal 1.00-4.00 [facility] Comment on above: Order Comment: Speci men Type: BLOOD SPECIMEN Ordering Facility: [facility] Address: [address] [place] [address] Performed By: #### 5 7021-8 #### [facility] CLIA [id number] 1000 [place] [address] [facility] [place] Lymphocytes/100 WBC (Bld) 38.6 % Normal [facility] Comment on above: Order Comment: Speci men Type: BLOOD SPECIMEN Ordering Facility: [facility] Address: [address] [place] [address] Performed By: #### 5 7021-8 #### [facility] CLIA [id number] [address] MCH (RBC) [Entitic mass] 30.8 pg Normal 26.0-34.0 [facility] Comment on above: Order Comment: Speci men Type: BLOOD SPECIMEN Ordering Facility: [facility] Address: [address] [place] [address] Performed By: #### 5 7021-8 #### [facility] CLIA [id number] [address] [place] MCHC (RBC) [Mass/Vol] 34.4 g/dL Normal 30.5-36.0 [facility] Comment on above: Order Comment: Speci men Type: BLOOD SPECIMEN Ordering Facility: [facility] Address: [address] [place] [address] Performed By: #### 5 7021-8 #### [facility] CLIA [id number] [address] MCV (RBC) [Entitic vol] 89.5 fL Normal 80.0-100.0 [facility] Comment on above: Order Comment: Speci men Type: BLOOD SPECIMEN Ordering Facility: [facility] Address: [address] [place] [address] Performed By: #### 5 7021-8 #### [facility] CLIA [id number] [address] [place] Monocytes (Bld) [#/Vol] 0.50 10*3/uL Normal <0.87 [facility] Comment on above: Order Comment: Speci men Type: BLOOD SPECIMEN Ordering Facility: [facility] Address: [address] [place] [address] Performed By: #### 5 7021-8 #### [facility] CLIA [id number] [address] Monocytes/100 WBC (Bld) 8.4 % Normal [facility] Comment on above: Order Comment: Speci men Type: BLOOD SPECIMEN Ordering Facility: [facility] Address: [address] [place] [address] Performed By: #### 5 7021-8 #### [facility] CLIA [id number] [address] [place] [address] [place] Neutrophils (Bld) [#/Vol] 3.01 10*3/uL Normal 1.45-7.50 [facility] Comment on above: Order Comment: Speci men Type: BLOOD SPECIMEN Ordering Facility: [facility] Address: [address] [place] [address] Performed By: #### 5 7021-8 #### [facility] CLIA [id number] [address] [place] Neutrophils/100 WBC (Bld) 50.5 % Normal [facility] Comment on above: Order Comment: Speci men Type: BLOOD SPECIMEN Ordering Facility: [facility] Address: [address] [place] [address] Performed By: #### 5 7021-8 #### [facility] CLIA [id number] [address] [place] [address] [place] Nucleated RBC (Bld) [#/Vol] 10*3/uL Normal <0.01 [facility] Comment on above: Order Comment: Speci men Type: BLOOD SPECIMEN Ordering Facility: [facility] Address: [address] [place] [address] Performed By: #### 5 7021-8 #### [facility] CLIA [id number] [address] [place] Nucleated RBC/100 WBC (Bld) [Ratio] 0.0 /100 WBC Normal [facility] Comment on above: Order Comment: Speci men Type: BLOOD SPECIMEN Ordering Facility: [facility] Address: [address] [place] [address] Performed By: #### 5 7021-8 #### [facility] CLIA [id number] [address] [place] Platelet mean volume (Bld) [Entitic vol] 10.1 fL Normal 9.0-12.7 [facility] Comment on above: Order Comment: Speci men Type: BLOOD SPECIMEN Ordering Facility: [facility] Address: [address] [place] [address] Performed By: #### 5 7021-8 #### [facility] CLIA [id number] [address] Platelets (Bld) [#/Vol] 313 10*3/uL Normal 150-400 [facility] Comment on above: Order Comment: Speci men Type: BLOOD SPECIMEN Ordering Facility: [facility] Address: [address] [place] [address] Performed By: #### 5 7021-8 #### [facility] CLIA [id number] [address] [place] RBC (Bld) [#/Vol] 4.29 10*6/uL Normal 3.90-5.20 [facility] Comment on above: Order Comment: Speci men Type: BLOOD SPECIMEN Ordering Facility: [facility] Address: [address] [place] [address] Performed By: #### 5 7021-8 #### [facility] CLIA [id number] [address] WBC (Bld) [#/Vol] 5.96 10*3/uL Normal 3.70-11.00 [facility] Comment on above: Order Comment: Speci men Type: BLOOD SPECIMEN Ordering Facility: [facility] Address: [address] [place] [address] Performed By: #### 5 7021-8 #### [facility] CLIA [id number] [address] CRP SerPl-mCncon 03-01-2025 CRP [Mass/Vol] mg/L Normal <0.9 [facility] Comment on above: Order Comment: Speci men Type: BLOOD SPECIMEN Ordering Facility: [facility] Address: [address] [place] [address] Performed By: #### 3 040-3, 1987-5, 2276-4, 16392-4 #### [facility] CLIA [id number] [address] [place] Comprehensive metabolic 2000 panelon 03-01-2025 Albumin [Mass/Vol] 4.4 g/dL Normal 3.9-4.9 [facility] Comment on above: Order Comment: Speci men Type: BLOOD SPECIMENOrdering Facility: [facility] Address: [address] [place] [address] Performed By: #### 2 4323-01, 2132-02 ####[facility] [id number] [place] [address] [place] ALP [Catalytic activity/Vol] 96 U/L Normal 34-123 [facility] Comment on above: Order Comment: Speci men Type: BLOOD SPECIMENOrdering Facility: [facility] Address: [address] [facility] [address] Performed By: #### 2 4323-01, 2132-02 ####[facility] [id number] [place] [address] [place] ALT [Catalytic activity/Vol] 39 U/L High 7-38 [facility] Comment on above: Order Comment: Speci men Type: BLOOD SPECIMENOrdering Facility: [facility] Address: [address] [place] [address] Performed By: #### 2 4323-01, 2132-02 ####[facility] [id number] [address] [place] Anion gap [Moles/Vol] 9 mmol/L Normal 8-15 [facility] Comment on above: Order Comment: Speci men Type: BLOOD SPECIMENOrdering Facility: [facility] Address: [address] [place] [address] Performed By: #### 2 4323-01, 2132-02 ####[facility] [id number] [place] [address] [place] AST [Catalytic activity/Vol] 25 U/L Normal 13-35 [facility] Comment on above: Order Comment: Speci men Type: BLOOD SPECIMENOrdering Facility: [facility] Address: [address] [place] [address] Performed By: #### 2 4323-01, 2132-02 ####[facility] [id number] [place] [address] [place] Bilirubin [Mass/Vol] 0.2 mg/dL Normal 0.2-1.3 [facility] Comment on above: Order Comment: Speci men Type: BLOOD SPECIMENOrdering Facility: [facility] Address: [address] [place] [address] Performed By: #### 2 4323-8, 2132-02 ####[facility] [id number] [place] [address] [place] Calcium [Mass/Vol] 9.4 mg/dL Normal 8.5-10.2 [facility] Comment on above: Order Comment: Speci men Type: BLOOD SPECIMENOrdering Facility: [facility] Address: [address] [place] [address] Performed By: #### 2 432-8, 2132-02 ####[facility] [id number] [place] [address] [place] Chloride [Moles/Vol] 101 mmol/L Normal 98-107 [facility] Comment on above: Order Comment: Speci men Type: BLOOD SPECIMENOrdering Facility: [facility] Address: [address] [place] [address] Performed By: #### 2 4323-8, 2132-02 ####[facility] [id number] [place] [address] [place] CO2 [Moles/Vol] 30 mmol/L Normal 22-30 [facility] Comment on above: Order Comment: Speci men Type: BLOOD SPECIMENOrdering Facility: [facility] Address: [address] [place] [address] Performed By: #### 2 4323-8, 2132-02 ####[facility] [id number] [place] [address] [place] Creatinine [Mass/Vol] 0.89 mg/dL Normal 0.58-0.96 [facility] Comment on above: Order Comment: Speci men Type: BLOOD SPECIMENOrdering Facility: [facility] Address: [address] [place] [address] Performed By: #### 2 43238, 2132-02 ####[facility] [id number] [place] [address] [place] eGFRcr SerPlBld CKD-EPI 2020 78 mL/min/1.73m??? Normal >=60 [facility] Comment on above: Order Comment: Grace jones Type: BLOOD SPECIMENOrdering Facility: [facility] Address: [address] [place] [address] Result Comment: Marla mated Glomerular Filtration Rate (eGFR) is calculated using the 2020 CKD-EPI creatinine equation. This equation utilizes serum creatinine, sex, and age as parameters. The creatinine assay has traceable calibration to isotope dilution-mass spectrometry. Refer to KDIGO guidelines for clinical interpretation. In patients with unstable renal function, e.g. those with acute kidney injury, the eGFR may not accurately reflect actual GFR. Performed By: #### 2 43208-11, 2132-02 ####[facility] [id number] [place] [id number] [place] Glucose [Mass/Vol] 93 mg/dL Normal 74-99 [facility] Comment on above: Order Comment: Grace jones Type: BLOOD SPECIMENOrdering Facility: [facility] Address: [address] [place] [address] Result Comment: The [place] [employer] (ADA) provides guidance for cutoff values for fasting glucose and random glucose. The ADA defines fasting as no caloric intake for at least 8 hours. Fasting plasma glucose results between 100 to 125 mg/dL indicate increased risk for diabetes (prediabetes). Fasting plasma glucose results greater than or equal to 126 mg/dL meet the criteria for diagnosis of diabetes. In the absence of unequivocal hyperglycemia, results should be confirmed by repeat testing. In a patient with classic symptoms of hyperglycemia or hyperglycemic crisis, random plasma glucose results greater than or equal to 200 mg/dL meet the criteria for diagnosis of diabetes. Reference: Standards of Medical Care in Diabetes 2016, [place] [employer]. Diabetes Care. 2016.39(Suppl 1). Performed By: #### 2 4323-8, 2132-02 ####[facility] [id number] [place] [address] [place] Potassium [Moles/Vol] 4.1 mmol/L Normal 3.7-5.1 [facility] Comment on above: Order Comment: Speci men Type: BLOOD SPECIMENOrdering Facility: [facility] Address: [address] [place] [id number] Performed By: #### 2 8, 2132-02 ####[facility] [id number] [place] [address] [place] Protein [Mass/Vol] 7.2 g/dL Normal 6.3-8.0 [facility] Comment on above: Order Comment: Speci men Type: BLOOD SPECIMENOrdering Facility: [facility] Address: [address] [place] [address] Performed By: #### 2 8, 2132-02 ####[facility] [id number] [place] [address] [place] Sodium [Moles/Vol] 140 mmol/L Normal 136-144 [facility] Comment on above: Order Comment: Speci men Type: BLOOD SPECIMENOrdering Facility: [facility] Address: [address] [place] [address] Performed By: #### 2 8, 2132-02 ####[facility] [id number] [place] [address] [place] Urea nitrogen [Mass/Vol] 14 mg/dL Normal 7-21 [facility] Comment on above: Order Comment: Speci men Type: BLOOD SPECIMENOrdering Facility: [facility] Address: [address] [place] [id number] Performed By: #### 2 8, 2132-02 ####[facility] [id number] [place] [id number] [place] Ferritin SerPl-mCncon 2024 Ferritin [Mass/Vol] 121.0 ng/mL Normal 14.7-205.1 [facility] Comment on above: Order Comment: Speci men Type: BLOOD SPECIMEN [facility] Address: [address] [place] [address] Performed By: #### 3 040-3, 1987-, 6-4, 31140-0 #### [facility] CLIA [id number] [address] [place] [address] [place] IGG SUBCLASS 1,2,3,4on 03-01 IgG subclass 1 (S) [Mass/Vol] 508.7 mg/dL Normal 382.4-928.6 [facility] Comment on above: Order Comment: Speci men Type: BLOOD SPECIMENOrdering Facility: [facility] Address: [address] [place] [address] Performed By: #### I G1234 ####[facility] LABCLIA [id number] [place] [address] [place] IgG subclass 2 (S) [Mass/Vol] 339.7 mg/dL Normal 241.8-700.3 [facility] Comment on above: Order Comment: Speci men Type: BLOOD SPECIMENOrdering Facility: [facility] Address: [address] [place] [address] Performed By: #### I G1234 ####[facility] LABCLIA [id number] [place] [address] [place] IgG subclass 3 (S) [Mass/Vol] 48.1 mg/dL Normal 21.8-176.1 [facility] Comment on above: Order Comment: Speci men Type: BLOOD SPECIMENOrdering Facility: [facility] Address: [address] [place] [address] Performed By: #### I G1234 ####[facility] LABCLIA [id number] [place] [id number] [place] IgG subclass 4 (S) [Mass/Vol] 12.9 mg/dL Normal 3.9-86.4 [facility] Comment on above: Order Comment: Speci men Type: BLOOD SPECIMENOrdering Facility: [facility] Address: [address] [place] [address] Performed By: #### I G1234 ####[facility] LABCLIA [id number] [place] [id number] [place] Iron and Iron binding capaci ty panelon 03-01-2025 Iron [Mass/Vol] 82 ug/dL Normal 41-186 [facility] Comment on above: Order Comment: Speci men Type: BLOOD SPECIMEN [facility] Address: [address] [place] [address] Performed By: #### 3 040-3, 1987-10, 2275-09, 13215-2 #### [facility] CLIA [id number] [address] STATES [facility] Iron binding capacity [Mass/Vol] 252 ug/dL Normal 232-386 [facility] Comment on above: Order Comment: Speci men Type: BLOOD SPECIMEN [facility] Address: [address] [place], [place] [address] Performed By: #### 3 040-3, 1987-10, 2275-09, 38416-1 #### [facility] CLIA [id number] [address] Iron/TIBC [Molar ratio] 32.5 % Normal 15.0-57.0 [facility] Comment on above: Order Comment: Speci men Type: BLOOD SPECIMEN [facility] Address: [address] [place] [address] Performed By: #### 3 040-3, 1987-10, 2275-09, 70459-2 #### [facility] CLIA [id number] [address] OF [facility] Lipase SerPl-cCncon 03-01-20 25 Lipase [Catalytic activity/Vol] 38 U/L Normal 16-61 [facility] Comment on above: Order Comment: Speci men Type: BLOOD SPECIMEN [facility] Address: [address] [place], [place] [address] Performed By: #### 3 040-3, 1987-10, 2275-09, 59113-0 #### [facility] CLIA [id number] [address] [place] [address] [place] US THYROID/PARATHYROIDon US THYROID/PARATHYROID * * *Final Report* * * DATE OF EXAM: Mar 01 2025 3:55PM MDU 1048 - US THYROID/PARATHYROID / PROCEDURE REASON: e4.01 thyroid nodule * * * * Physician Interpretation * * * * EXAMINATION: THYROID ULTRASOUND CLINICAL HISTORY: e4.01 thyroid nodule TECHNIQUE: Sonography and Doppler imaging of the thyroid was performed. Images were obtained and stored in a permanent archive. MQ: UST_1 COMPARISON: 12/06/2017 RESULT: Right Lobe: 4.8 x 1.5 x 2.2 cm; heterogeneous echogenicity, expected vascular flow. Left Lobe: 5.2 x 2.1 x 0.9 cm; heterogeneous echogenicity, expected vascular flow. Isthmus: 0.3 cm The most suspicious thyroid nodule(s) (up to four) as below: NODULE 1: Location: Right upper pole Size: 1.3 x 0.7 x 1.3 cm (previously 1.1 x 0.7 cm) Characteristics: Composition: Solid or almost completely solid, 2 points Echogenicity: Hypoechoic, 2 points Shape: Jeyzw-djer-xepo, 0 points Margin: Smooth, 0 points Echogenic foci (add points for all that apply): None, 0 points Internal vascularity: present Interval growth: No significant growth given differences in technique TI-RADS Category: TR4 ACR Recommendation: TI-RADS 4 nodule. Follow up imaging in 1, 2, 3 and 5 years is advised. NODULE 2: Location: Right mid Size: 0.6 x 0.4 x 0.4 cm (previously 0.5 x 0.4 x 0.7 cm) Characteristics: Composition: Solid or almost completely solid, 2 points Echogenicity: Hypoechoic, 2 points Shape: Zvsiu-oufp-dlbn, 0 points Margin: Smooth, 0 points Echogenic foci (add points for all that apply): None, 0 points Internal vascularity: present Interval growth: No significant growth given differences in technique TI-RADS Category: TR4 ACR Recommendation: TI-RADS 4 nodule. No FNA or follow-up imaging is advised. NODULE 3: Location: Left posterior midpole Size: 0.8 x 0.6 x 0.6 cm (previously 0.9 x 0.7 x 0.8 cm) Characteristics: Composition: Solid or almost completely solid, 2 points Echogenicity: Very hypoechoic, 3 points Shape: Elrgh-ritm-zoie, 0 points Margin: Smooth, 0 points Echogenic foci (add points for all that apply): Macrocalcifications, 1 point Internal vascularity: present Interval growth: No significant growth given differences in technique TI-RADS Category: TR4 ACR Recommendation: TI-RADS 4 nodule. No FNA or follow-up imaging is advised. NODULE 4: Location: Left lower pole Size: 1.2 x 0.9 x 0.9 cm (previously 1.5 x 1.3 x 1 cm) Characteristics: Composition: Solid or almost completely solid, 2 points Echogenicity: Hypoechoic, 2 points Shape: Mbedb-fexl-fdvl, 0 points Margin: Smooth, 0 points Echogenic foci (add points for all that apply): None, 0 points Internal vascularity: present Interval growth: No significant growth given differences in technique TI-RADS Category: TR4 ACR Recommendation: TI-RADS 4 nodule. Follow up imaging in 1, 2, 3 and 5 years is advised. IMPRESSION: Thyroid nodule(s) is/are present. Surveillance imaging is recommended for one or more nodules as detailed in the synoptic report. TI-RADS Category: TR4 ACR Recommendation: TI-RADS 4 nodule. Follow up imaging in 1, 2, 3 and 5 years is advised. ACR recommendations are strictly based on the size and imaging appearance at the time of the exam and do not consider stability or previous biopsy results. Company Secretary: JANETH Transcribe Date/Time: Mar 06 2025 12:44P Dictated by : JAROD MUNIZ MD This examination was interpreted and the report reviewed and electronically signed by: JAROD MUNIZ MD on Mar 06 2025 12:49PM EST [id number] Normal [facility] Vit B12 SerPl-mCncon 025 Cobalamin (Vitamin B12) [Mass/Vol] 374 pg/mL Normal 232-1245 [facility] Comment on above: Order Comment: Speci men Type: BLOOD SPECIMENOrdering Facility: [facility] Address: [address] [place], [place] [address] [address] Performed By: #### 2 4323-8, 2132-9 ####[facility] [id number] [place] [address] [place] No Panel InformationOrdered By: Breann Calixto on 01-28-2025 Interpretation and review of laboratory results Normal [facility] POCT Covid-19 Rapid AntigenO rdered By: Breann Calixto on 01-28-2025 SARS-CoV-2 (COVID-19) Ag IA.rapid Ql (Resp) Presumptive negative test for SARS-CoV-2 (no antigen detected) Presumptive negative test for SARS-CoV-2 (no antigen detected) [facility] POCT SPOTFIRE R/ST Panel Min i w/Strep A (DNA Direct) manually resultedon 01-28-2025 POC Human Rhinovirus PCR Negative Negative [facility] Work Phone: POC Influenza A Virus PCR Negative Negative [facility] Work Phone: POC Influenza B Virus PCR Negative Negative [facility] Work Phone: POC Respiratory Syncytial Virus PCR Negative Negative [facility] Work Phone: S. pyogenes DNA ASHLEE+probe Ql (Throat) Negative Negative [facility] Work Phone: CNPNon 12-05-2024 CNPN Telephone ([facility]) -------- CALLIE KENNEDY ([id number]) 1970 F T Date Time Provider Department 12/05/24 ALIA PARMAR [facility] During your visit today, we recorded the following information about you: Sharri Phelps 12/05/2024 12:30 PM Signed Alia Parmar MD [facility] Clerical Pool Please help her get scheduled for colonoscopy Sharri Phelps 12/05/2024 12:30 PM Signed Patient is scheduled for diagnostic colonoscopy on 02/07/[address] Parmar. Patient is wondering if possible to do a Miralax prep instead of Golytely due to her vomiting last time. Please advise. Tracy Cyr, OLGA 12/05/2024 3:43 PM Signed I would recommend the golytely. However, if she wants to do the miralax/gatorade, please send her the prep instructions if possible. Spoke to patient and reviewed advice from Dr Parmar above She would prefer Miralax/ gatorade prep Instructions sent through my chart Allergies As of Date: 12/05/2024 Noted Allergy Reaction HYDROQUINONE 09/23/2022 10 - Anaphylaxis CODEINE 10/15/2003 8 - GI Upset GADOTERATE MEGLUMINE 10/24/2023 16 - Unknown HUMIRA (ADALIMUMAB) 11/19/2022 4 - Hives STELARA (USTEKINUMAB) 11/19/2022 12 - Shortness of Breath Date Reviewed: 11/14/2024 Reviewed by: Lorena Mitchell, OLGA - Fully Assessed Prescriptions as of 12/05/2024 - peg 3350-Electrolytes (GOLYTELY) 236-22.74-6.74 -5.86 gram suspension Take 4,000 mL by mouth one time only for 1 dose. Refer to printed prep instructions from your provider. - predniSONE (DELTASONE) 5 mg tablet Take 8 tablets by mouth once daily for 7 days, THEN 7 tablets once daily for 7 days, THEN 6 tablets once daily for 7 days, THEN 5 tablets once daily for 7 days, THEN 4 tablets once daily for 7 days, THEN 3 tablets once daily for 7 days, THEN 2 tablets once daily for 7 days, THEN 1 tablet once daily for 7 days. - SKYRIZI 360 mg/2.4 mL (150 mg/mL) wearable injector INSERT 1 CARTRIDGE INTO ON-BODY INJECTOR AND INJECT 360 MG UNDER THE SKIN EVERY 8 WEEKS - polyethylene glycol 3350 17 gram packet Take 17 g by mouth once daily. - traZODone (DESYREL) 100 mg tablet Take 100 mg by mouth at bedtime as needed. For Insomnia - venlafaxine ER (EFFEXOR XR) 75 mg 24 hr capsule Take 75 mg by mouth once daily. - montelukast (SINGULAIR) 10 mg tablet Take 1 tablet by mouth once daily. - albuterol HFA (PROVENTIL HFA, VENTOLIN HFA) 90 mcg/actuation inhaler Inhale 2 Puffs as instructed every 6 hours. Problem List As Of Date 12/05/2024 Noted Resolved Lump or mass in breast [N63.0] 02/20/2007 02/07/2018 Multinodular goiter [E04.2] 05/26/2010 Right lower quadrant abdominal pain [R10.31] 01/31/2016 02/07/2018 Endometriosis [N80.9] 02/13/2016 02/07/2018 Pelvic adhesions [N73.6] 02/13/2016 02/07/2018 Colitis [K52.9] 02/07/2020 Severe protein-calorie malnutrition (HCC) [E43] 02/07/2020 Personal history of nicotine dependence [Z87.89*12/23/2016 Irritable bowel syndrome [K58.9] 02/24/2021 Pectoralis minor syndrome (HCC) [I77.89] 02/24/2021 Pulmonary embolism (HCC) [I26.99] 06/06/2001 Atypical chest pain [R07.89] 09/23/2022 Crohn's disease of large intestine without comp*02/13/2024 Encounter Status:Closed by SHARRI PHELPS on 12/05/24 Normal [facility] CBC W Auto Differential pane l (Bld)on 11-14-2024 Basophils (Bld) [#/Vol] 0.04 10*3/uL Normal <0.11 [facility] Comment on above: Order Comment: Speci men Type: BLOOD SPECIMENOrdering Facility: [facility] Address: [address] [place] [address] Performed By: #### 5 7021-8 ####[employer] [facility] LABCLIA [id number] [place] [id number] [place] Basophils/100 WBC (Bld) 0.7 % Normal [facility] Comment on above: Order Comment: Speci men Type: BLOOD SPECIMENOrdering Facility: [facility] Address: [address] [place] [address] Performed By: #### 5 7021-8 ####[employer] [facility] [address] LABCLIA [id number] [place] [address] [place] Differential cell count method Nom (Bld) Auto Normal [facility] Comment on above: Order Comment: Speci men Type: BLOOD SPECIMENOrdering Facility: [facility] Address: [address] [place] [address] Performed By: #### 5 7021-8 ####[facility] LABCLIA [id number] [place] [address] [place] Eosinophils (Bld) [#/Vol] 0.04 10*3/uL Normal <0.46 [facility] Comment on above: Order Comment: Speci men Type: BLOOD SPECIMENOrdering Facility: [facility] Address: [address] [place] [address] Performed By: #### 5 7021-8 ####[facility] LABCLIA [id number] [place] [id number] [facility] Eosinophils/100 WBC (Bld) 0.7 % Normal [facility] Comment on above: Order Comment: Speci men Type: BLOOD SPECIMENOrdering Facility: [facility] Address: [address] [place] [address] Performed By: #### 5 7021-8 ####[facility] LABCLIA [id number] [place] [id number] [facility] Erythrocyte distribution width (RBC) [Ratio] 11.6 % Normal 11.5-15.0 [facility] Comment on above: Order Comment: Speci men Type: BLOOD SPECIMENOrdering Facility: [facility] Address: [facility] [place] [address] Performed By: #### 5 7021-8 ####[facility] LABCLIA [id number] [place] [address] [facility] Hematocrit (Bld) [Volume fraction] 39.2 % Normal 36.0-46.0 [facility] Comment on above: Order Comment: Speci men Type: BLOOD SPECIMENOrdering Facility: [facility] Address: [address] [place] [address] Performed By: #### 5 7021-8 ####[facility] LABCLIA [id number] [place] [address] [place] Hemoglobin (Bld) [Mass/Vol] 13.7 g/dL Normal 11.5-15.5 [facility] Comment on above: Order Comment: Speci men Type: BLOOD SPECIMENOrdering Facility: [facility] Address: [address] [place] [address] Performed By: #### 5 7021-8 ####[facility] LABCLIA [id number] [place] [address] [place] Immature granulocytes (Bld) [#/Vol] 10*3/uL Normal <0.10 [facility] Comment on above: Order Comment: Speci men Type: BLOOD SPECIMENOrdering Facility: [facility] Address: [address] [place] [address] Performed By: #### 5 7021-8 ####[facility] LABCLIA [id number] [place] [id number] [place] Immature granulocytes/100 WBC (Bld) 0.2 % Normal [facility] Comment on above: Order Comment: Speci men Type: BLOOD SPECIMENOrdering Facility: [facility] Address: [address] [place] [address] Performed By: #### 5 7021-8 ####[facility] LABCLIA [id number] [place] [id number] [place] Lymphocytes (Bld) [#/Vol] 2.35 10*3/uL Normal 1.00-4.00 [facility] Comment on above: Order Comment: Speci men Type: BLOOD SPECIMENOrdering Facility: [facility] Address: [address] [place] [address] Performed By: #### 5 7021-8 ####[facility] LABCLIA [id number] [place] [id number] [place] Lymphocytes/100 WBC (Bld) 38.6 % Normal [facility] Comment on above: Order Comment: Speci men Type: BLOOD SPECIMENOrdering Facility: [facility] Address: [address] [place] [address] Performed By: #### 5 7021-8 ####[facility] LABCLIA [id number] [place] [address] [place] MCH (RBC) [Entitic mass] 30.6 pg Normal 26.0-34.0 [facility] Comment on above: Order Comment: Speci men Type: BLOOD SPECIMENOrdering Facility: [facility] Address: [address] [place] [address] Performed By: #### 5 7021-8 ####[facility] LABCLIA [id number] [place] [address] [place] MCHC (RBC) [Mass/Vol] 34.9 g/dL Normal 30.5-36.0 [facility] Comment on above: Order Comment: Speci men Type: BLOOD SPECIMENOrdering Facility: [facility] Address: [address] [place] [address] Performed By: #### 5 7021-8 ####[facility] LABCLIA [id number] [place] [id number] [facility] MCV (RBC) [Entitic vol] 87.5 fL Normal 80.0-100.0 [facility] Comment on above: Order Comment: Speci men Type: BLOOD SPECIMENOrdering Facility: [facility] Address: [address] [place] [address] Performed By: #### 5 7021-8 ####[facility] LABCLIA [id number] [place] [address] [facility] [place] Monocytes (Bld) [#/Vol] 0.43 10*3/uL Normal <0.87 [facility] Comment on above: Order Comment: Speci men Type: BLOOD SPECIMENOrdering Facility: [facility] Address: [address] [place] [address] Performed By: #### 5 7021-8 ####[facility] LABCLIA [id number] [place] [address] [facility] Monocytes/100 WBC (Bld) 7.1 % Normal [facility] Comment on above: Order Comment: Speci men Type: BLOOD SPECIMENOrdering Facility: [facility] Address: [address] [place] [address] Performed By: #### 5 7021-8 ####[facility] LABCLIA [id number] [place] [address] [place] Neutrophils (Bld) [#/Vol] 3.22 10*3/uL Normal 1.45-7.50 [facility] Comment on above: Order Comment: Speci men Type: BLOOD SPECIMENOrdering Facility: [facility] Address: [address] [place] [address] Performed By: #### 5 7021-8 ####[facility] LABCLIA [id number] [place] [address] [place] Neutrophils/100 WBC (Bld) 52.7 % Normal [facility] Comment on above: Order Comment: Speci men Type: BLOOD SPECIMENOrdering Facility: [facility] Address: [address] [place] [address] Performed By: #### 5 7021-8 ####[facility] LABCLIA [id number] [place] [address] [place] Nucleated RBC (Bld) [#/Vol] Normal [facility] Comment on above: Order Comment: Speci men Type: BLOOD SPECIMENOrdering Facility: [facility] Address: [address] [place] [address] Performed By: #### 5 7021-8 ####[facility] LABCLIA [id number] [place] [address] [place] Nucleated RBC/100 WBC (Bld) [Ratio] Normal [facility] Comment on above: Order Comment: Speci men Type: BLOOD SPECIMENOrdering Facility: [facility] Address: [address] [place] [address] Performed By: #### 5 7021-8 ####[facility] LABCLIA [id number] [place] [address] [place] Platelet mean volume (Bld) [Entitic vol] 10.1 fL Normal 9.0-12.7 [facility] Comment on above: Order Comment: Speci men Type: BLOOD SPECIMENOrdering Facility: [facility] Address: [address] [place] [address] Performed By: #### 5 7021-8 ####[facility] [facility] LABCLIA [id number] [place] [address] [place] [facility] Platelets (Bld) [#/Vol] 282 10*3/uL Normal 150-400 [facility] Comment on above: Order Comment: Speci men Type: BLOOD SPECIMENOrdering Facility: [facility] Address: [address] [place] [address] Performed By: #### 5 7021-8 ####[facility] LABCLIA [id number] [place] [address] [facility] RBC (Bld) [#/Vol] 4.48 10*6/uL Normal 3.90-5.20 [facility] Comment on above: Order Comment: Speci men Type: BLOOD SPECIMENOrdering Facility: [facility] Address: [address] [place] [address] Performed By: #### 5 7021-8 ####[facility] LABCLIA [id number] [place] [address] [facility] WBC (Bld) [#/Vol] 6.09 10*3/uL Normal 3.70-11.00 [facility] Comment on above: Order Comment: Speci men Type: BLOOD SPECIMENOrdering Facility: [facility] Address: [address] [place] [address] Performed By: #### 5 7021-8 ####[facility] LABCLIA [id number] [place] [address] [facility] CNOVon 11-14-2024 CNOV Office Visit (GSTNOR ) -------- CALLIE KENNEDY ([id number]) 1970 F CHT Date Time Provider Department 11/14/24 1:50 PM LIZ AVERY During your visit today, we recorded the following information about you: Pulse Blood pressure Weight Height 89/minute 110/72 68.1 kg 1.676 m Liz Avery PA-C 11/14/2024 2:03 PM Signed CHIEF COMPLAINT: Patient presents with: ER F/U: Crohns HPI Callie Kennedy is a 54 year old female here today for ER F/U (Crohns ) Patient tells me that she has been in a flare in her Crohn's since last Tuesday. Notes severe lower abdominal pain with numbness in the area now. Pain is continuing to worsen. Sharp in the RLQ pain. Patient is visibly uncomfortable today. Notes she was having watery diarrhea but this has subsided. Does think its due to not eating. No rectal bleeding. Tolerating Skyrizi however doesn't believe it is working. States this is her third flare in [address] abd/pelvis 11/11/2024: IMPRESSION: No acute bowel inflammation. Last OV with Dr. Parmar 03/16/2024: ASSESSMENT: 1. Crohn's disease of colon without complication (HCC) -Beginning Skyrizi next week -Check labs in April 23, 2024 week and Jun 22, 2024 week -She should obtain the hepatitis A, Hepatitis B vaccination series -She should also obtain the shingrix and pneumovax vaccinations due to her immunocompromised state even though she is not 67, these are recommended by the IBD societies given that she is on a biologic immunosuppressant for IBD -We discussed flu vaccination. She has an allergy and was told never to get it again - We discussed COVID 19 vaccination/booster recommendations to obtain this and she will think about this. - COMPLETE BLOOD COUNT AND DIFFERENTIAL; Future - COMPREHENSIVE METABOLIC PANEL; Future - C-REACTIVE PROTEIN; Future - CALPROTECTIN,FECAL - COMPLETE BLOOD COUNT AND DIFFERENTIAL; Future - COMPREHENSIVE METABOLIC PANEL; Future - C-REACTIVE PROTEIN; Future 2. History of pulmonary embolus during Consult to hematology (+) FHX of hypercoagulable state in sister - CONSULT TO HEMATOLOGY/ONCOLOGY; Future - COMPLETE BLOOD COUNT AND DIFFERENTIAL; Future - COMPREHENSIVE METABOLIC PANEL; Future - C-REACTIVE PROTEIN; Future - CALPROTECTIN,FECAL - COMPLETE BLOOD COUNT AND DIFFERENTIAL; Future - C-REACTIVE PROTEIN; Future 3. Family history of hypercoagulable state Sister has factor V leiden and lupus anticoagulant Patient had bilateral PE during and has h/o IBD - CONSULT TO HEMATOLOGY/ONCOLOGY; Future - COMPLETE BLOOD COUNT AND DIFFERENTIAL; Future - COMPREHENSIVE METABOLIC PANEL; Future - C-REACTIVE PROTEIN; Future - CALPROTECTIN,FECAL - COMPLETE BLOOD COUNT AND DIFFERENTIAL; Future - C-REACTIVE PROTEIN; Future Latest Ref Rng 11/11/2024 WBC 3.70 - 11.00 k/uL 9.47 RBC 3.90 - 5.20 m/uL 4.68 Hemoglobin 11.5 - 15.5 g/dL 14.2 Hematocrit 36.0 - 46.0 % 42.0 MCV 80.0 - 100.0 fL 89.7 MCH 26.0 - 34.0 pg 30.3 MCHC 30.5 - 36.0 g/dL 33.8 RDW-CV 11.5 - 15.0 % 11.8 Platelet Count 150 - 400 k/uL 320 MPV 9.0 - 12.7 fL 10.3 Neut% % 66.6 Abs Neut (ANC) 1.45 - 7.50 k/uL 6.30 Lymph% % 26.9 Abs Lymph 1.00 - 4.00 k/uL 2.55 [place]% % 5.3 Abs [place] <0.87 k/uL 0.50 Eosin% % 0.6 Abs Eosin <0.46 k/uL 0.06 Baso% % 0.3 Abs Baso <0.11 k/uL 0.03 Immature Gran % % 0.3 IMMATURE GRANS (ABS) <0.10 k/uL 0.03 NRBC /100 WBC 0.0 Absolute nRBC <0.01 k/uL <0.01 DTYPE Auto Glucose 74 - 99 mg/dL 108 (H) BUN 7 - 21 mg/dL 15 Creatinine 0.58 - 0.96 mg/dL 0.88 Sodium 136 - 144 mmol/L 137 Potassium 3.7 - 5.1 mmol/L 4.3 Chloride 98 - 107 mmol/L 101 CO2 22 - 30 mmol/L 26 Anion Gap 8 - 15 mmol/L 10 Calcium 8.5 - 10.2 mg/dL 9.7 eGFR >=60 mL/min/1.73m? 79 Albumin 3.9 - 4.9 g/dL 4.3 Bilirubin, Total 0.2 - 1.3 mg/dL 0.2 Bilirubin, Direct <0.3 mg/dL <0.1 Alkaline Phosphatase 34 - 123 U/L 107 AST 13 - 35 U/L 23 ALT 7 - 38 U/L 44 (H) Protein, Total 6.3 - 8.0 g/dL 7.3 Lipase 16 - 61 U/L 38 Legend: (H) High Current Outpatient Medications Medication Sig SKYRIZI 360 mg/2.4 mL (150 mg/mL) wearable injector INSERT 1 CARTRIDGE INTO ON-BODY INJECTOR AND INJECT 360 MG UNDER THE SKIN EVERY 8 WEEKS polyethylene glycol 3350 17 gram packet Take 17 g by mouth once daily. traZODone (DESYREL) 100 mg tablet Take 100 mg by mouth at bedtime as needed. For Insomnia venlafaxine ER (EFFEXOR XR) 75 mg 24 hr capsule Take 75 mg by mouth once daily. montelukast (SINGULAIR) 10 mg tablet Take 1 tablet by mouth once daily. albuterol HFA (PROVENTIL HFA, VENTOLIN HFA) 90 mcg/actuation inhaler Inhale 2 Puffs as instructed every 6 hours. baclofen 10 mg tablet Take 10 mg by mouth three times a day. (Patient not taking: Reported on 11/14/2024) iv contrast (will be provided with radiology test) CT Enterography W Inject, intravenously, once for 1 dose.No IV (more content not included)... Normal [facility] CRP SerPl-mCncon 11-14-2024 CRP [Mass/Vol] 0.1 mg/dL Normal <0.9 [facility] Comment on above: Order Comment: Speci men Type: BLOOD SPECIMENOrdering Facility: [facility] Address: [facility] [place] [address] Performed By: #### 3 040-3, 1987-, 00484-8 ####[facility] LABCLIA [id number] [place] [address] [place] CT ABD/PEL W IVCONon 06-11-[address] ABD/PEL W IVCON * * *Final Report* * * DATE OF EXAM: Nov 14 2024 3:57PM [facility] 0530 - CT ABD/PEL W IVCON / PROCEDURE REASON: Crohn's exacerbation * * * * Physician Interpretation * * * * EXAMINATION: CT ABDOMEN AND PELVIS WITH IV CONTRAST CLINICAL HISTORY: Crohn's exacerbation. Right lower quadrant. Nausea TECHNIQUE: CT of the abdomen and pelvis was performed using standard technique, scanning from just above the dome of the diaphragm to the symphysis pubis. MQ: CTAP_3 Contrast: IV: 100 ml of Omnipaque 350 : ml of CT Radiation dose: Integrated Dose-length product (DLP) for this visit = 396 mGy*cm. CT Dose Reduction Employed: Automated exposure control (AEC) COMPARISON: CT abdomen pelvis 11/11/2024, CT enterography 01/03/2024 RESULT: Liver: Small hepatic cyst. Biliary: No bile duct dilation. Gallbladder is unremarkable. Spleen: No mass. No splenomegaly. Pancreas: Chronic mild diffuse duct dilation. Adrenals: No mass. Kidneys: No hydronephrosis. GI tract: No dilation or wall thickening. Appendectomy. Lymph nodes: No abdominal or pelvic lymphadenopathy. Mesentery/Peritoneum: No ascites or mass. Retroperitoneum: No mass. Vasculature: Aorta is nonaneurysmal. Pelvis: No mass, ascites or fluid collection. Bones/Soft Tissues: No acute osseous findings. Lower thorax: Noncontributory. Localizer images: No additional findings. IMPRESSION: No acute findings. Company Secretary: [facility]ITAL[facility]aud[facility] Transcribe Date/Time: Nov 14 2024 4:03P Dictated by : STEPHEN ALEX MD This examination was interpreted and the report reviewed and electronically signed by: STEPHEN ALEX MD on Nov 14 2024 4:10PM EST [id number] Normal [facility] Comprehensive metabolic 2000 panelon 11-14-2024 Albumin [Mass/Vol] 4.5 g/dL Normal 3.9-4.9 [facility] Comment on above: Order Comment: Speci men Type: BLOOD SPECIMENOrdering Facility: [facility] Address: [address] [place] [address] Performed By: #### 3 040-3, 1987-10, ####[facility] LABCLIA [id number] [place] [address] [place] ALP [Catalytic activity/Vol] 89 U/L Normal 34-123 [facility] Comment on above: Order Comment: Speci men Type: BLOOD SPECIMENOrdering Facility: [facility] Address: [address] [place] [address] Performed By: #### 3 040-3, 1987-10, ####[facility] LABCLIA [id number] [place] [address] [place] ALT [Catalytic activity/Vol] 25 U/L Normal 7-38 [facility] Comment on above: Order Comment: Speci men Type: BLOOD SPECIMENOrdering Facility: [facility] Address: [address] [place] [address] Performed By: #### 3 040-3, 1987-10, ####[facility] LABCLIA [id number] [place] [address] [place] Anion gap [Moles/Vol] 7 mmol/L Low 8-15 [facility] Comment on above: Order Comment: Speci men Type: BLOOD SPECIMENOrdering Facility: [facility] Address: [address] [place] [address] Performed By: #### 3 040-3, 1987-10, ####[facility] LABCLIA [id number] [place] [address] [place] AST [Catalytic activity/Vol] 16 U/L Normal 13-35 [facility] Comment on above: Order Comment: Speci men Type: BLOOD SPECIMENOrdering Facility: [facility] Address: [address] [place] [address] Performed By: #### 3 040-3, 1987-10, ####[facility] LABCLIA [id number] [place] [address] [place] Bilirubin [Mass/Vol] 0.4 mg/dL Normal 0.2-1.3 [facility] Comment on above: Order Comment: Speci men Type: BLOOD SPECIMENOrdering Facility: [facility] Address: [address] [place] [address] Result Comment: Use of this assay is not recommended for patients undergoing treatment with eltrombopag due to the potential for falsely elevated results. Performed By: #### 3 040-3, 1987-10, ####[facility] LABCLIA [id number] [place] [address] [place] Calcium [Mass/Vol] 9.3 mg/dL Normal 8.5-10.2 [facility] Comment on above: Order Comment: Speci men Type: BLOOD SPECIMENOrdering Facility: [facility] Address: [address] [place] [address] Performed By: #### 3 040-3, 1987-10, ####[facility] LABCLIA [id number] [place] [address] [place] Chloride [Moles/Vol] 102 mmol/L Normal 98-107 [facility] Comment on above: Order Comment: Speci men Type: BLOOD SPECIMENOrdering Facility: [facility] Address: [address] [place] [address] Performed By: #### 3 040-3, 1987-10, ####[facility] LABCLIA [id number] [place] [address] [place] CO2 [Moles/Vol] 29 mmol/L Normal 22-30 [facility] Comment on above: Order Comment: Speci men Type: BLOOD SPECIMENOrdering Facility: [facility] Address: [address] [place] [address] Performed By: #### 3 040-3, 1987-10, ####[facility] LABCLIA [id number] [place] [address] [place] Creatinine [Mass/Vol] 0.85 mg/dL Normal 0.58-0.96 [facility] Comment on above: Order Comment: Speci men Type: BLOOD SPECIMENOrdering Facility: [facility] Address: [address] [place] [address] Result Comment: Use of this assay is not recommended for patients undergoing treatment with phenindione, due to the potential for falsely depressed results. Performed By: #### 3 040-3, ####[facility] LABCLIA [id number] [place] [address] [place] Creatinine and Glomerular filtration rate.predicted panel (S/P/Bld) 83 mL/min/1.73m??? Normal >=60 [facility] Comment on above: Order Comment: Speci men Type: BLOOD SPECIMENOrdering Facility: [facility] Address: [address] [place] [address] Result Comment: Marla mated Glomerular Filtration Rate (eGFR) is calculated using the 2020 CKD-EPI creatinine equation. This equation utilizes serum creatinine, sex, and age as parameters. The creatinine assay has traceable calibration to isotope dilution-mass spectrometry. Refer to KDIGO guidelines for clinical interpretation. In patients with unstable renal function, e.g. those with acute kidney injury, the eGFR may not accurately reflect actual GFR. Performed By: #### 3 040-3, ####[facility] LABCLIA [id number] [place] [address] [place] Protein [Mass/Vol] 7.0 g/dL Normal 6.3-8.0 [facility] Comment on above: Order Comment: Speci men Type: BLOOD SPECIMENOrdering Facility: [facility] Address: [address] [place] [address] Performed By: #### 3 0403, ####[facility] [address] LABCLIA [id number] [place] [address] [place] Sodium [Moles/Vol] 138 mmol/L Normal 136-144 [facility] Comment on above: Order Comment: Speci men Type: BLOOD SPECIMENOrdering Facility: [facility] Address: [address] [place] [id number] Performed By: #### 3 040-3, ####[facility] LABCLIA [id number] [place] [address] [place] Urea nitrogen [Mass/Vol] 11 mg/dL Normal 7- [facility] Comment on above: Order Comment: Speci men Type: BLOOD SPECIMENOrdering Facility: [facility] Address: [facility] [place] [address] Performed By: #### 3 040-3, 1987-, 00799-7 ####[facility] LABCLIA [id number] [place] [address] [facility] ED PROV NOTEon 11-14-2024 ED PROV NOTE HNO ID: [id number] Author: ARIA GILES MD Service: Emergency Medicine Author Type: Physician Type: ED Provider Notes Filed: 12/10/2024 15:24 Note Text: ED Provider Note Patient Name: Callie Kennedy : 1970 SERVICE DATE: 11/14/24 History Patient presents with: Abdominal Pain: Patient presents with complaints of chrons flare up since last week. Saw GI today who told her to come her ER for pain control. Also complaints of right lower quad numbness. +nausea The patient is a 54-year-old female past medical history significant for Crohn's disease who presents with abdominal pain. Patient reports she was seen by her GI doctor earlier today was sent here for pain control. Patient reports increasing pain since her flare started a week ago. Denies vomiting, fevers, nausea. Reports that her pain is increased so much that she is having numbness to the right lateral thigh. Reports that her pain is in the right lower quadrant. Had a CT scan 3 days ago which did not reveal acute intra-abdominal process. Was put on a steroid taper by her GI doctor earlier today. Is on Skyrizi and has been compliant with it. 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 Had thoracic outlet decompression surgery on the right in 2017 - PMH - PAST MEDICAL HISTORY OF right shoulder work injury, resolving with Physical Therapy and pain management - Pulmonary embolism (HCC) 06/06/2001 sister has a clotting disorder but patient wasn't tested. This occured when she was on bedrest with twins developed bilateral DVT, then PE. Was on heparin until they were born (delivered at 30 weeks) was on an oral blood thinner for six months and then was taken off - Regional enteritis of unspecified site Crohn disease - Sleep apnea - TOS (thoracic outlet syndrome) - Ulcerative colitis (HCC) PAST SURGICAL HISTORY Procedure Laterality Date - DELIVERY ONLY 02/27/2002 emergency section for 30wk gest twins - COLONOSCOPY 02/08/2020 MINIMAL ACTIVE COLITIS descending colon, tortuous colon, int hemorrhoids - COLONOSCOPY 02/13/2024 - EGD 06/01/2022 gastritis, Claudia-Arevalo tear, neg H Pylori - EGD W/O [facility] SPEC VARICIES INJ 02/13/2024 - EXC CYST/ABERRANT BREAST TISSUE OPEN 1/> LESION 04/25/2009 RIGHT with benign results - EXC CYST/ABERRANT BREAST TISSUE OPEN 1/> LESION 04/25/2009 RIGHT with benign results - EXCISE LYMPH NODE 04/25/2009 RIGHT with benign results - LAPS ABD PRTMANDOMENTUM DX W/WO SPEC BR/WA SPX 05/12/2001 Dr. Jasso, Endo, stage 4 - LAPS ABD PRTMANDOMENTUM DX W/WO SPEC BR/WA SPX 06/19/1999 Dr. Jasso, endometriosis - LAPS ABD PRTMANDOMENTUM DX W/WO SPEC BR/WA SPX 1997 Dr. [place], [place] She found endo (1st dx. of endo) - LAPS ABD PRTMANDOMENTUM DX W/WO SPEC BR/WA SPX 08/07/2004 Dr. Jasso. Dx. L'scopy, RIGHT ovarian cystectomy, lysis of adhesions, rigid proctoscopy. (for RIGHT ovarian cyst, stage IV endometriosis - LAPS ABD PRTMANDOMENTUM DX W/WO SPEC BR/WA SPX 05/12/2001 Dr. Hussain Jasso.OPERATION: Diagnostic laparoscopy, resection of bilateral endometriomas, and lysis of adhesions - LAPS ABD PRTMANDOMENTUM DX W/WO SPEC BR/WA SPX 06/17/1999 Dr. Hussain Jasso. OPERATION: Laparoscopic excision of endometriosis. - LAPS ABD PRTMANDOMENTUM DX W/WO SPEC BR/WA SPX 06/17/1999 Dr. Payton OPERATION: Excision of rectal endometriosis, mobilization of the rectum and rigid sigmoidoscopy. - ORTHOPEDICS SURGERY HX Right 12/13/2018 artoroscopic rt shoulder - PAST SURGICAL HISTORY OF age 4 umbillical hernia - PAST SURGICAL HISTORY OF breast cysts x3 surgeries - PAST SURGICAL HISTORY OF 12/2006 TRIGGER FINGER RELEASE RIGHT HAND - PECTORALIS MINOR TENDON RELEASE (COMP CODE 66413) Right - RIB RESECTION TOTAL Right - SHOULDER ARTHROSCOPY/SURGERY Right 12/13/2018 Dr Hernandez, repair labrum tear - SHOULDER SURGERY HX Right 12/13/2017 FAMILY HISTORY Problem Relation Age of Onset - Diabetes Maternal Grandfather - Cancer Maternal Grandmother - Breast Cancer Paternal Grandmother unaware of history, pt.is - Colon Cancer Paternal Grandfather - Heart Mother - Heart Father - Breast Cancer Sister 04/2009 pt dx after,nipple discharge ,color change, most recedtly stopped breast feeding, tx plan, started pending pathology Social History T (more content not included)... Normal [facility] Gas + CO Pnl BldVon 11-15-19 25 Glucose [Mass/Vol] 97 mg/dL Normal 74-99 [facility] Comment on above: Order Comment: Grace jones Type: VENOUS BLOOD SPECIMENOrdering Facility: [facility] Address: [address] [place] [address] Performed By: #### 2 4344-4 ####[facility] LABCLIA [id number] [address] [place] Order Comment: Grace jones Type: BLOOD SPECIMENOrdering Facility: [facility] Address: [address] [place] [address] Result Comment: The [place] Diabetes Association (ADA) provides guidance for cutoff values for fasting glucose and random glucose. The ADA defines fasting as no caloric intake for at least 8 hours. Fasting plasma glucose results between 100 to 125 mg/dL indicate increased risk for diabetes (prediabetes). Fasting plasma glucose results greater than or equal to 126 mg/dL meet the criteria for diagnosis of diabetes. In the absence of unequivocal hyperglycemia, results should be confirmed by repeat testing. In a patient with classic symptoms of hyperglycemia or hyperglycemic crisis, random plasma glucose results greater than or equal to 200 mg/dL meet the criteria for diagnosis of diabetes. Reference: Standards of Medical Care in Diabetes 2016, [place] [employer] Association. Diabetes Care. 2016.39(Suppl 1). Performed By: #### 3 040-3, 1987-10, ####[facility] LABCLIA [id number] [place] [address] [place] Potassium [Moles/Vol] 3.4 mmol/L Low 3.7-5.1 [facility] Comment on above: Order Comment: Speci men Type: VENOUS BLOOD SPECIMENOrdering Facility: [facility] Address: [address] [place] [address] Performed By: #### 2 4344-4 ####[facility] LABCLIA [id number] [place] [address] [place] Order Comment: Speci men Type: BLOOD SPECIMENOrdering Facility: [facility] Address: [address] [place] [address] Performed By: #### 3 040-3, 1987-10, ####[employer] [facility] LABCLIA [id number] [place] [address] [place] Gas and Carbon monoxide pane l (BldV)on 11-14-2024 Base excess Calc (BldV) [Moles/Vol] 4 mmol/L High 0-2 [facility] Comment on above: Order Comment: Speci men Type: VENOUS BLOOD SPECIMENOrdering Facility: [facility] Address: [address] [place] [address] Performed By: #### 2 4344-4 ####[facility] LABCLIA [id number] [place] [address] [place] Body temperature 98.6 [degF] Normal [facility] Comment on above: Order Comment: Speci men Type: VENOUS BLOOD SPECIMENOrdering Facility: [facility] Address: [address] [place] [address] Performed By: #### 2 4344-4 ####[facility] LABCLIA [id number] [place] [id number] [place] Calcium.ionized (Bld) [Mass/Vol] 1.13 mmol/L Normal 1.08-1.30 [facility] Comment on above: Order Comment: Speci men Type: VENOUS BLOOD SPECIMENOrdering Facility: [facility] Address: [address] [place] [address] Performed By: #### 2 4344-4 ####[facility] LABCLIA [id number] [place] [id number] [facility] Calcium.ionized adjusted to pH 7.4 (BldA) [Moles/Vol] 1.14 mmol/L Normal 1.08-1.30 [facility] Comment on above: Order Comment: Speci men Type: VENOUS BLOOD SPECIMENOrdering Facility: [facility] Address: [address] [place] [address] Performed By: #### 2 4344-4 ####[facility] LABCLIA [id number] [place] [id number] [place] Carboxyhemoglobin (BldV) [Mass fraction] 3.8 % High 0.0-2.0 [facility] Comment on above: Order Comment: Speci men Type: VENOUS BLOOD SPECIMENOrdering Facility: [facility] Address: [address] [place] [address] Result Comment: Carb oxyhemoglobin Reference Range for Smokers: 2.0-8.0% Performed By: #### 2 4344-4 ####[facility] LABCLIA [id number] [place] [phone] [place] Chloride [Moles/Vol] 104 mmol/L Normal 97-105 [facility] Comment on above: Order Comment: Speci men Type: VENOUS BLOOD SPECIMENOrdering Facility: [facility] Address: [address] [place] [address] Performed By: #### 2 4344-4 ####[facility] LABCLIA [id number] [place] [address] [place] CO2 (BldV) [Partial pressure] 44 mm[Hg] Normal 42-55 [facility] Comment on above: Order Comment: Speci men Type: VENOUS BLOOD SPECIMENOrdering Facility: [facility] Address: [address] [place] [address] Performed By: #### 2 4344-4 ####[facility] LABCLIA [id number] [place] [address] [place] HCO3 (Bld) [Moles/Vol] 29 mmol/L High 24-28 [facility] Comment on above: Order Comment: Speci men Type: VENOUS BLOOD SPECIMENOrdering Facility: [facility] Address: [address] [place] [address] Performed By: #### 2 4344-4 ####[facility] LABCLIA [id number] [place] [address] [place] Hematocrit (Bld) [Volume fraction] 42.8 % Normal 36.0-46.0 [facility] Comment on above: Order Comment: Speci men Type: VENOUS BLOOD SPECIMENOrdering Facility: [facility] Address: [address] [place] [address] Performed By: #### 2 4344-4 ####[facility] LABCLIA [id number] [place] [address] [place] Hemoglobin (Bld) [Mass/Vol] 14.0 g/dL Normal 11.5-15.5 [facility] Comment on above: Order Comment: Speci men Type: VENOUS BLOOD SPECIMENOrdering Facility: [facility] Address: [address] [place] [address] Performed By: #### 2 4344-4 ####[facility] LABCLIA [id number] [place] [address] [place] Lactate [Moles/Vol] 0.7 mmol/L Normal 0.5-2.2 [facility] Comment on above: Order Comment: Speci men Type: VENOUS BLOOD SPECIMENOrdering Facility: [facility] Address: [address] [place] [address] Performed By: #### 2 4344-4 ####[facility] LABCLIA [id number] [place] [address] [place] Methemoglobin (Bld) [Mass fraction] % Normal 0.0-1.5 [facility] Comment on above: Order Comment: Speci men Type: VENOUS BLOOD SPECIMENOrdering Facility: [facility] Address: [address] [place] [id number] Performed By: #### 2 4344-4 ####[facility] LABCLIA [id number] [place] [address] [place] O2 THERAPY RA=Room Air Normal [facility] Comment on above: Order Comment: Speci men Type: VENOUS BLOOD SPECIMENOrdering Facility: [facility] Address: [address] [place] [id number] Performed By: #### 2 4344-4 ####[facility] LABCLIA [id number] [place] [address] [place] Oxygen (BldV) [Partial pressure] 54 mm[Hg] High 35-45 [facility] Comment on above: Order Comment: Speci men Type: VENOUS BLOOD SPECIMENOrdering Facility: [facility] Address: [address] [place] [address] Performed By: #### 2 4344-4 ####[facility] LABCLIA [id number] [place] [address] [place] Oxygen saturation in Venous blood 90 % High 60-85 [facility] Comment on above: Order Comment: Speci men Type: VENOUS BLOOD SPECIMENOrdering Facility: [facility] Address: [address] [place] [address] Performed By: #### 2 4344-4 ####[facility] LABCLIA [id number] [place] [address] [place] Oxyhemoglobin (BldV) [Mass fraction] 86 % High 60-85 [facility] Comment on above: Order Comment: Speci men Type: VENOUS BLOOD SPECIMENOrdering Facility: [facility] Address: [address] [place] [address] Performed By: #### 2 4344-4 ####[facility] LABCLIA [id number] [place] [address] [place] pH (BldV) 7.42 [pH] Normal 7.32-7.42 [facility] Comment on above: Order Comment: Speci men Type: VENOUS BLOOD SPECIMENOrdering Facility: [facility] Address: [address] [place] [address] Performed By: #### 2 4344-4 ####[facility] LABCLIA [id number] [place] [address] [place] Sodium [Moles/Vol] 141 mmol/L Normal 136-144 [facility] Comment on above: Order Comment: Speci men Type: VENOUS BLOOD SPECIMENOrdering Facility: [facility] Address: [address] [place] [address] Performed By: #### 2 4344-4 ####[facility] LABCLIA [id number] [place] [address] [place] Lipase SerPl-cCncon 11-15-19 25 Lipase [Catalytic activity/Vol] 26 U/L Normal 16-61 [facility] Comment on above: Order Comment: Speci men Type: BLOOD SPECIMENOrdering Facility: [facility] Address: [address] [place] [address] Performed By: #### 3 040-3, 1987-10, 06038-4 ####[facility] LABCLIA [id number] [place] [address] [place] Urinalysis complete panel (U )on 11-14-2024 Bilirubin Ql (U) Negative Normal Negative [facility] Comment on above: Order Comment: Speci men Type: URINE SPECIMENOrdering Facility: [facility] Address: [address] [place] [address] Performed By: #### 2 4356-8 ####[facility] LABCLIA [id number] [place] [address] [facility] [place] Clarity (Unsp spec) Clear Normal Clear [facility] Comment on above: Order Comment: Speci men Type: URINE SPECIMENOrdering Facility: [facility] Address: [address] [place] [address] Performed By: #### 2 4356-8 ####[facility] LABCLIA [id number] [place] [address] [place] Color (U) Yellow Normal Yellow [facility] Comment on above: Order Comment: Speci men Type: URINE SPECIMENOrdering Facility: [facility] Address: [address] [place] [address] Performed By: #### 2 4356-8 ####[facility] LABCLIA [id number] [place] [address] [place] Epithelial cells LM.HPF (Urine sed) [#/Area] Few Normal [facility] Comment on above: Order Comment: Speci men Type: URINE SPECIMENOrdering Facility: [facility] Address: [address] [place] [address] Performed By: #### 2 4356-8 ####[facility] LABCLIA [id number] [place] [address] [place] Glucose Test strip (U) [Mass/Vol] Negative Normal Negative [facility] Comment on above: Order Comment: Speci men Type: URINE SPECIMENOrdering Facility: [facility] Address: [address] [place] [address] Performed By: #### 2 4356-8 ####[facility] LABCLIA [id number] [place] [address] [place] Hemoglobin Ql (U) Negative Normal Negative [facility] Comment on above: Order Comment: Speci men Type: URINE SPECIMENOrdering Facility: [facility] Address: [address] [place] [address] Performed By: #### 2 4356-8 ####[facility] LABCLIA [id number] [place] [address] [facility] Ketones Ql (U) Negative Normal Negative [facility] Comment on above: Order Comment: Speci men Type: URINE SPECIMENOrdering Facility: [facility] Address: [address] [place] [address] Performed By: #### 2 4356-8 ####[facility] LABCLIA [id number] [place] [address] [place] Leukocyte esterase Test strip Ql (U) Negative Normal Negative [facility] Comment on above: Order Comment: Speci men Type: URINE SPECIMENOrdering Facility: [facility] Address: [address] [place] [address] Performed By: #### 2 4356-8 ####[facility] LABCLIA [id number] [place] [address] [place] [facility] Nitrite Ql (U) Negative Normal Negative [facility] Comment on above: Order Comment: Speci men Type: URINE SPECIMENOrdering Facility: [facility] Address: [address] [place] [address] Performed By: #### 2 4356-8 ####[facility] LABCLIA [id number] [place] [address] [facility] [place] pH (U) 6.0 [pH] Normal 5.0-8.0 [facility] Comment on above: Order Comment: Speci men Type: URINE SPECIMENOrdering Facility: [facility] Address: [address] [place] [address] Performed By: #### 2 4356-8 ####[facility] LABCLIA [id number] [place] [address] [place] [facility] Protein (U) [Mass/Vol] Negative Normal Negative [facility] Comment on above: Order Comment: Speci men Type: URINE SPECIMENOrdering Facility: [facility] Address: [address] [place] [address] Performed By: #### 2 4356-8 ####[facility] LABCLIA [id number] [place] [address] [place] RBC LM.HPF (Urine sed) [#/Area] 0-3 /HPF Normal 0-3 /HPF [facility] Comment on above: Order Comment: Speci men Type: URINE SPECIMENOrdering Facility: [facility] Address: [address] [place] [address] Performed By: #### 2 4356-8 ####[facility] LABCLIA [id number] [place] [address] [facility] Specific gravity (U) [Rel density] <=1.005 Low 1.005-1.030 [facility] Comment on above: Order Comment: Speci men Type: URINE SPECIMENOrdering Facility: [facility] Address: [address] [place] [address] Performed By: #### 2 4356-8 ####[facility] LABCLIA [id number] [place] [id number] [facility] Urobilinogen Ql (U) 0.2 EU/dL Normal 0.2-1.0 EU/dL [facility] Comment on above: Order Comment: Speci men Type: URINE SPECIMENOrdering Facility: [facility] Address: [address] [place] [address] Performed By: #### 2 4356-8 ####[facility] LABCLIA [id number] [place] [id number] [facility] WBC LM.HPF (Urine sed) [#/Area] 0-5 /HPF Normal 0-5 /HPF [facility] Comment on above: Order Comment: Speci men Type: URINE SPECIMENOrdering Facility: [facility] Address: [address] [place] [address] Performed By: #### 2 4356-8 ####[facility] LABCLIA [id number] [place] [id number] [facility] [place] ED NOTEon 11-12-2024 ED NOTE HNO ID: [id number] Author: DAT THOMAS RN Service: Emergency Medicine Author Type: Registered Nurse Type: ED Notes Filed: 11/12/2024 02:31 Note Text: Provided james german per request. Normal [facility] ED NOTE HNO ID: [id number] Author: RAFA HEARD CT Service: Emergency Medicine Author Type: Clinical Pathology Manager Type: ED Notes Filed: 11/14/2024 19:04 Note Text: Emergency Services: ED Call Back Questionnaire SERVICE DATE: 11/11/2024 Are you feeling better? Yes Any questions about discharge instructions and follow-up care? No Were you able to make a follow up appointment? No, referred to appointment hotline Do you have any further questions? No Is there anything that we could have done differently to improve your ED visit? No SIGNATURE: TIARA Chaidez PATIENT NAME: Callie Kennedy DATE: November 14, 2024 TIME: 7:04 PM [facility] ED PROGRESS NOTE (PROVIDER)o n 11-12-2024 ED PROGRESS NOTE (PROVIDER) HNO ID: [id number] Author: DEDE DEJESUS DO Service: Critical Care Author Type: Resident Type: ED PROGRESS NOTE (PROVIDER) Filed: 11/13/2024 06:01 Note Text: -------- Attestation signed by Dede Dejesus DO at 11/13/2024 6:01 AM Attending Note I evaluated the patient and personally participated in the rico components. I personally saw the patient and performed a substantive portion of the visit including all aspects of the medical decision making. I agree with the resident's findings and plan as documented and have discussed the case and management of the patient's care with the resident. -------- ED CONTINUATION OF CARE NOTE Code Status: Full Code Assumed care from: Dr. Robbi Atwood Presentation / Findings / Interventions / Plan / Items to Follow Up: Patient is a 54-year-old female with a history of Crohn's disease who presents to the ED due to abdominal pain, nausea, diarrhea. She reportedly is on Skyrizi for her Crohn's. She is pending a CT of her abdomen/pelvis with IV contrast. If this scan is negative, the plan is for discharge with GI follow-up. ED Course as of 11/12/24 0204 Others' Documentation Sun Nov 11, [id number] Patient presenting for concerns of abdominal pain for the last 4 days, gradual onset but worsening over this time. Primarily throughout the lower abdomen bilaterally. Feels similar to previous Crohn's flares but more severe. Has had bloody diarrhea as well throughout this time. No recent C. difficile exposures. No previous history of C. difficile. No recent travel. Takes Skyrizi for long-term maintenance. No recent steroids that she reports. Exam reveals mildly uncomfortable. Female, no acute distress. Tender to palpation throughout the entire lower abdomen. No guarding or rebound. Heart regular in rhythm. No conversational dyspnea. Differential includes Crohn's flare, other colitis. Low concerns for infectious colitis or C. difficile as patient has no leukocytosis, no fever and no recent travel. Patient has remote appendectomy making this less of a concern. Lower concern for bowel obstruction given her continued output. Initial labs returned without significant abnormalities. Will provide pain control and obtain CT imaging to further evaluate [CS] ED Course User Index [CS] Benny Dunham DO Clinical Impressions as of 11/12/24 0204 Lower abdominal pain Bloody stool Medical Decision Making This patient was signed out to me by my colleague Dr. Robbi Atwodo. Please kindly see their note for further details regarding patient's initial presentation, evaluation, and interpretation of lab/ imaging studies not discussed in this note. Prior to the patient's final disposition, I reevaluated the patient and determined that they have been maintaining stable vital signs and CT abdomen pelvis with IV contrast is negative for inflammation or any other acute pathology, and are in a stable condition appropriate for discharge with close outpatient PCP and gastroenterology follow up. Strict return precautions were given, with patient informed of concerning signs and symptoms to monitor for, and to return to the emergency department immediately if any arise. Disposition: Discharge SIGNATURE: Tamar Ledezma MD PATIENT NAME: Callie Kennedy DATE: November 12, 2024 TIME: 2:04 AM PAGER/CONTACT #: Normal [facility] Basic metabolic 2000 panelon 11-11-2024 Anion gap [Moles/Vol] 10 mmol/L Normal 8-15 [facility] Comment on above: Order Comment: Speci men Type: BLOOD SPECIMENOrdering Facility: [facility] Address: [address] [place] [address] Performed By: #### 3 040-3, 78133-5, 24170-6 ####[facility] LABORATORYCLIA [id number] [place] [address] [place] Calcium [Mass/Vol] 9.7 mg/dL Normal 8.5-10.2 [facility] Comment on above: Order Comment: Speci men Type: BLOOD SPECIMENOrdering Facility: [facility] Address: [address] [place] [address] Performed By: #### 3 040-3, 09492-1, 14204-1 ####[facility] LABORATORYCLIA [id number] [place] [address] [place] Chloride [Moles/Vol] 101 mmol/L Normal 98-107 [facility] Comment on above: Order Comment: Speci men Type: BLOOD SPECIMENOrdering Facility: [facility] Address: [address] [place] [address] Performed By: #### 3 040-3, 55238-0, 28951-6 ####[facility] LABORATORYCLIA [id number] [place] [address] [place] CO2 [Moles/Vol] 26 mmol/L Normal 22-30 [facility] [facility] Comment on above: Order Comment: Speci men Type: BLOOD SPECIMENOrdering Facility: [facility] Address: [address] [place] [address] Performed By: #### 3 040-3, 61437-3, 58717-1 ####[facility] LABORATORYCLIA [id number] [address] OF [facility] Creatinine [Mass/Vol] 0.88 mg/dL Normal 0.58-0.96 [facility] Comment on above: Order Comment: Grace jones Type: BLOOD SPECIMENOrdering Facility: [facility] Address: [address] [place] [address] Performed By: #### 3 040-3, 64195-5, 79827-9 ####[facility] LABORATORYCLIA [id number] [address] Creatinine and Glomerular filtration rate.predicted panel (S/P/Bld) 79 mL/min/1.73m??? Normal >=60 [facility] Comment on above: Order Comment: Grace jones Type: BLOOD SPECIMENOrdering Facility: [facility] Address: [address] [place] [address] Result Comment: Marla mated Glomerular Filtration Rate (eGFR) is calculated using the 2020 CKD-EPI creatinine equation. This equation utilizes serum creatinine, sex, and age as parameters. The creatinine assay has traceable calibration to isotope dilution-mass spectrometry. Refer to KDIGO guidelines for clinical interpretation. In patients with unstable renal function, e.g. those with acute kidney injury, the eGFR may not accurately reflect actual GFR. Performed By: #### 3 040-3, 72588-6, 61177-8 ####[facility] LABORATORYIA [id number] [address] [place] Glucose [Mass/Vol] 108 mg/dL High 74-99 [facility] Comment on above: Order Comment: Grace jones Type: BLOOD SPECIMENOrdering Facility: [facility] Address: [address] [place] [address] Result Comment: The [place] [employer] (ADA) provides guidance for cutoff values for fasting glucose and random glucose. The ADA defines fasting as no caloric intake for at least 8 hours. Fasting plasma glucose results between 100 to 125 mg/dL indicate increased risk for diabetes (prediabetes). Fasting plasma glucose results greater than or equal to 126 mg/dL meet the criteria for diagnosis of diabetes. In the absence of unequivocal hyperglycemia, results should be confirmed by repeat testing. In a patient with classic symptoms of hyperglycemia or hyperglycemic crisis, random plasma glucose results greater than or equal to 200 mg/dL meet the criteria for diagnosis of diabetes. Reference: Standards of Medical Care in Diabetes 2016, [place] [employer] Association. Diabetes Care. 2016.39(Suppl 1). Performed By: #### 3 040-3, 40295-1, 74428-4 ####[facility] LABORATORYCLIA [id number] [place] [address] [place] Potassium [Moles/Vol] 4.3 mmol/L Normal 3.7-5.1 [facility] Comment on above: Order Comment: Speci men Type: BLOOD SPECIMENOrdering Facility: [facility] Address: [address] [place] [address] Performed By: #### 3 040-3, 86957-0, 21517-2 ####[facility] LABORATORYCLIA [id number] [address] STATES [facility] Sodium [Moles/Vol] 137 mmol/L Normal 136-144 [facility] Comment on above: Order Comment: Mihaii men Type: BLOOD SPECIMENOrdering Facility: [facility] Address: [address] [place] [address] Performed By: #### 3 040-3, 11634-3, 22498-6 ####[facility] LABORATORYCLIA [id number] [address] STATES [facility] Urea nitrogen [Mass/Vol] 15 mg/dL Normal 7-21 [facility] Comment on above: Order Comment: Speci men Type: BLOOD SPECIMENOrdering Facility: [facility] Address: [address] [place] [address] Performed By: #### 3 040-3, 94823-0, 81680-2 ####[facility] LABORATORYCLIA [id number] [place] [address] [place] CBC W Auto Differential pane l (Bld)on 11-11-2024 Basophils (Bld) [#/Vol] 0.03 10*3/uL Normal <0.11 [facility] Comment on above: Order Comment: Speci men Type: BLOOD SPECIMENOrdering Facility: [facility] Address: [address] [place] [address] Performed By: #### 5 7021-8 ####[facility]ORATORYCLIA [id number] [address] [place] Basophils/100 WBC (Bld) 0.3 % Normal [facility] Comment on above: Order Comment: Speci men Type: BLOOD SPECIMENOrdering Facility: [facility] Address: [address] [place] [address] Performed By: #### 5 7021-8 ####[facility] LABORATORYCLIA [id number] [address] [place] Differential cell count method Nom (Bld) Auto Normal [facility] Comment on above: Order Comment: Speci men Type: BLOOD SPECIMENOrdering Facility: [facility] Address: [address] [place] [address] Performed By: #### 5 7021-8 ####[facility] LABORATORYCLIA [id number] [address] [place] Eosinophils (Bld) [#/Vol] 0.06 10*3/uL Normal <0.46 [facility] Comment on above: Order Comment: Speci men Type: BLOOD SPECIMENOrdering Facility: [facility] Address: [address] [place] [address] Performed By: #### 5 7021-8 ####[facility] LABORATORYCLIA [id number] [address] Eosinophils/100 WBC (Bld) 0.6 % Normal [facility] Comment on above: Order Comment: Speci men Type: BLOOD SPECIMENOrdering Facility: [facility] Address: [address] [place] [address] Performed By: #### 5 7021-8 ####[facility]ORATORYCLIA [id number] [address] [place] Erythrocyte distribution width (RBC) [Ratio] 11.8 % Normal 11.5-15.0 [facility] Comment on above: Order Comment: Speci men Type: BLOOD SPECIMENOrdering Facility: [facility] Address: [address] [place] [address] Performed By: #### 5 7021-8 ####[facility] LABORATORYCLIA [id number] [address] [place] Hematocrit (Bld) [Volume fraction] 42.0 % Normal 36.0-46.0 [facility] Comment on above: Order Comment: Speci men Type: BLOOD SPECIMENOrdering Facility: [facility] Address: [address] [place] [address] Performed By: #### 5 7021-8 ####[facility] LABORATORYCLIA [id number] [address] [place] Hemoglobin (Bld) [Mass/Vol] 14.2 g/dL Normal 11.5-15.5 [facility] Comment on above: Order Comment: Speci men Type: BLOOD SPECIMENOrdering Facility: [facility] Address: [address] [place] [address] Performed By: #### 5 7021-8 ####[facility] LABORATORYCLIA [id number] [address] [place] Immature granulocytes (Bld) [#/Vol] 0.03 10*3/uL Normal <0.10 [facility] Comment on above: Order Comment: Speci men Type: BLOOD SPECIMENOrdering Facility: [facility] Address: [address] [place] [address] Performed By: #### 5 7021-8 ####[facility] LABORATORYCLIA [id number] [address] [place] Immature granulocytes/100 WBC (Bld) 0.3 % Normal [facility] Comment on above: Order Comment: Speci men Type: BLOOD SPECIMENOrdering Facility: [facility] Address: [address] [place] [address] Performed By: #### 5 7021-8 ####[facility] LABORATORYCLIA [id number] [place] [address] [place] Lymphocytes (Bld) [#/Vol] 2.55 10*3/uL Normal 1.00-4.00 [facility] Comment on above: Order Comment: Speci men Type: BLOOD SPECIMENOrdering Facility: [facility] Address: [address] [place] [address] Performed By: #### 5 7021-8 ####[facility] LABORATORYCLIA [id number] [address] STATES [facility] Lymphocytes/100 WBC (Bld) 26.9 % Normal [facility] Comment on above: Order Comment: Speci men Type: BLOOD SPECIMENOrdering Facility: [facility] Address: [address] [place] [address] Performed By: #### 5 7021-8 ####[facility] LABORATORYCLIA [id number] [address] [place] MCH (RBC) [Entitic mass] 30.3 pg Normal 26.0-34.0 [facility] Comment on above: Order Comment: Speci men Type: BLOOD SPECIMENOrdering Facility: [facility] Address: [address] [place] [address] Performed By: #### 5 7021-8 ####[facility] LABORATORYCLIA [id number] [address] STATES OF [facility] MCHC (RBC) [Mass/Vol] 33.8 g/dL Normal 30.5-36.0 [facility] Comment on above: Order Comment: Speci men Type: BLOOD SPECIMENOrdering Facility: [facility] Address: [address] [place] [address] Performed By: #### 5 7021-8 ####[facility] LABORATORYCLIA [id number] [address] [place] MCV (RBC) [Entitic vol] 89.7 fL Normal 80.0-100.0 [facility] Comment on above: Order Comment: Speci men Type: BLOOD SPECIMENOrdering Facility: [facility] Address: [address] [place] [address] Performed By: #### 5 7021-8 ####[facility] LABORATORYCLIA [id number] [place] [address] [place] Monocytes (Bld) [#/Vol] 0.50 10*3/uL Normal <0.87 [facility] Comment on above: Order Comment: Speci men Type: BLOOD SPECIMENOrdering Facility: [facility] Address: [address] [place] [address] Performed By: #### 5 7021-8 ####[facility] LABORATORYCLIA [id number] [place] [address] [place] Monocytes/100 WBC (Bld) 5.3 % Normal [facility] Comment on above: Order Comment: Speci men Type: BLOOD SPECIMENOrdering Facility: [facility] Address: [address] [place] [address] Performed By: #### 5 7021-8 ####[facility] LABORATORYCLIA [id number] [address] [place] Neutrophils (Bld) [#/Vol] 6.30 10*3/uL Normal 1.45-7.50 [facility] Comment on above: Order Comment: Speci men Type: BLOOD SPECIMENOrdering Facility: [facility] Address: [address] [place] [address] Performed By: #### 5 7021-8 ####[facility] LABORATORYCLIA [id number] [address] [place] Neutrophils/100 WBC (Bld) 66.6 % Normal [facility] Comment on above: Order Comment: Speci men Type: BLOOD SPECIMENOrdering Facility: [facility] Address: [address] [place] [address] Performed By: #### 5 7021-8 ####[facility] LABORATORYCLIA [id number] [place] [address] [place] Nucleated RBC (Bld) [#/Vol] 10*3/uL Normal <0.01 [facility] Comment on above: Order Comment: Speci men Type: BLOOD SPECIMENOrdering Facility: [facility] Address: [address] [place] [address] Performed By: #### 5 7021-8 ####[facility] LABORATORYCLIA [id number] [address] [place] Nucleated RBC/100 WBC (Bld) [Ratio] 0.0 /100 WBC Normal [facility] Comment on above: Order Comment: Speci men Type: BLOOD SPECIMENOrdering Facility: [facility] Address: [address] [place] [address] Performed By: #### 5 7021-8 ####[facility] LABORATORYCLIA [id number] [place] [address] [place] Platelet mean volume (Bld) [Entitic vol] 10.3 fL Normal 9.0-12.7 [facility] Comment on above: Order Comment: Speci men Type: BLOOD SPECIMENOrdering Facility: [facility] Address: [address] [place] [address] Performed By: #### 5 7021-8 ####[facility] LABORATORYCLIA [id number] [address] [place] Platelets (Bld) [#/Vol] 320 10*3/uL Normal 150-400 [facility] Comment on above: Order Comment: Speci men Type: BLOOD SPECIMENOrdering Facility: [facility] Address: [address] [place] [address] Performed By: #### 5 7021-8 ####[facility] LABORATORYCLIA [id number] [place] [address] [place] RBC (Bld) [#/Vol] 4.68 10*6/uL Normal 3.90-5.20 [facility] Comment on above: Order Comment: Speci men Type: BLOOD SPECIMENOrdering Facility: [facility] Address: [address] [place] [address] Performed By: #### 5 7021-8 ####[facility] LABORATORYCLIA [id number] [place] [address] [place] WBC (Bld) [#/Vol] 9.47 10*3/uL Normal 3.70-11.00 [facility] Comment on above: Order Comment: Speci men Type: BLOOD SPECIMENOrdering Facility: [facility] Address: [address] [place] [address] [place] [address] Performed By: #### 5 7021-8 ####[facility] LABORATORYCLIA [id number] [place] [address] [place] ABD/PEL W IVCONon 025 CT ABD/PEL W IVCON * * *Final Report* * * DATE OF EXAM: Nov 11 2024 10:59PM [facility] 0530 - CT ABD/PEL W IVCON / PROCEDURE REASON: Abdominal pain, acute, nonlocalized * * * * Physician Interpretation * * * * EXAMINATION: CT ABDOMEN AND PELVIS WITH IV CONTRAST CLINICAL HISTORY: Abdominal pain TECHNIQUE: CT of the abdomen and pelvis was performed using standard technique, scanning from just above the dome of the diaphragm to the symphysis pubis. MQ: CTAP_3 Contrast: IV: 100 ml of Omnipaque 350 : ml of CT Radiation dose: Integrated Dose-length product (DLP) for this visit = 406 mGy*cm. CT Dose Reduction Employed: Automated exposure control(AEC) and iterative recon COMPARISON: 01/03/2024. RESULT: Tiny right hepatic dome hypodensity. No radiopaque gallstones. Appendectomy. Normal kidneys adrenal glands pancreas spleen stomach urinary bladder. Aortoiliac calcifications. No bowel wall edema or obstruction. No suspicious osseous lesion. IMPRESSION: No acute bowel inflammation. Company Secretary: [facility] Transcribe Date/Time: Nov 12 2024 12:31A Dictated by : NILES BERGERON MD This examination was interpreted and the report reviewed and electronically signed by: NILES BERGERON MD on Nov 12 2024 12:33AM EST [id number] [facility] ED NOTEon 11-11-2024 ED NOTE HNO ID: [id number] Author: DAT THOMAS, RN Service: Emergency Medicine Author Type: Registered Nurse Type: ED Notes Filed: 11/11/2024 23:27 Note Text: Pt requesting analgesic and antiemetic. Notified Dr. Asif [facility] ED NOTE HNO ID: [id number] Author: DAT THOMAS, OLGA Service: Emergency Medicine Author Type: Registered Nurse Type: ED Notes Filed: 11/11/2024 22:51 Note Text: No transport available. Tech to take pt to CT Normal [facility] ED NOTE HNO ID: [id number] Author: DAT THOMAS RN Service: Emergency Medicine Author Type: Registered Nurse Type: ED Notes Filed: 11/11/2024 22:19 Note Text: CT not ready yet Normal [facility] ED NOTE HNO ID: [id number] Author: DAT THOMAS, OLGA Service: Emergency Medicine Author Type: Registered Nurse Type: ED Notes Filed: 11/11/2024 21:48 Note Text: ED CT notified Normal [facility] ED NOTE HNO ID: [id number] Author: CECELIA DELGADILLO RN Service: ? Author Type: Registered Nurse Type: ED Notes Filed: 11/11/2024 20:24 Note Text: Bed: 15-ED Expected date: Expected time: Means of arrival: Comments: Triage Normal [facility] ED PROV NOTEon 11-11-2024 ED PROV NOTE HNO ID: [id number] Author: BENNY DUNHAM DO Service: Emergency Medicine Author Type: Resident Type: ED Provider Notes Filed: 11/14/2024 09:01 Note Text: -------- Attestation signed by Benny Dunham DO at 11/14/2024 9:01 AM Attending Physician Attestation Note: Rico findings confirmed. I saw the patient in coordination with the resident physician. I personally interviewed and examined the patient. I discussed the patient with the resident physician. I reviewed the resident physician's note. I was present for rico portions of and personally supervised any/all procedures. I personally saw the patient and performed a substantive portion of the visit including all aspects of the medical decision making. I agree with the resident physician's findings and medical decision making unless otherwise documented. Signature: Benny Dunham DO Date: 11/14/2024 Time: 9:01 AM -------- ED Provider Note Patient Name: Callie Kennedy : 1970 SERVICE DATE: 11/11/24 History Patient presents with: Abdominal Pain: Patient arrives through triage d/t possible crohns flair up. Patient states she has been unable to keep food or fluids down since Tuesday, severe abd pain. States blood/mucous streaked stool. HPI Patient is a 54-year-old female presenting to the emergency department for evaluation of right lower abdominal pain, diarrhea with bloody stools that has been ongoing since Tuesday. Patient endorses that the last flareup she had was about a month ago, at which time she needed to be admitted to the hospital for antibiotics. Patient endorses that the symptoms feel similar to her Crohn's flareup since from the past, but normally she does not get this lower abdominal pain that she has now. Endorses that she has not really been having any episodes of emesis, however does feel significantly nauseous and her appetite has been significantly decreased. Patient has had abdominal surgeries including an appendectomy, , hysterectomy. Denies any significant shortness of breath, chest pain, denies any upper respiratory symptoms or fevers. Patient endorses that she is taking Skyrizi for her Crohn's which has not been very effective. Patient endorses that she follows with Dr. Parmar for GI. Patient denies any recent travel. 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 Had thoracic outlet decompression surgery on the right in 2017 PMH - PAST MEDICAL HISTORY OF right shoulder work injury, resolving with Physical Therapy and pain management Pulmonary embolism (HCC) 06/06/2001 sister has a clotting disorder but patient wasn't tested. This occured when she was on bedrest with twins developed bilateral DVT, then PE. Was on heparin until they were born (delivered at 30 weeks) was on an oral blood thinner for six months and then was taken off Regional enteritis of unspecified site Crohn disease Sleep apnea TOS (thoracic outlet syndrome) Ulcerative colitis (HCC) PAST SURGICAL HISTORY Procedure Laterality Date DELIVERY ONLY 02/27/2002 emergency section for 30wk gest twins COLONOSCOPY 02/08/2020 MINIMAL ACTIVE COLITIS descending colon, tortuous colon, int hemorrhoids EGD 06/01/2022 gastritis, Claudia-Arevalo tear, neg H Pylori EXC CYST/ABERRANT BREAST TISSUE OPEN 1/> LESION 04/25/2009 RIGHT with benign results EXC CYST/ABERRANT BREAST TISSUE OPEN 1/> LESION 04/25/2009 RIGHT with benign results EXCISE LYMPH NODE 04/25/2009 RIGHT with benign results LAPS ABD PRTMANDOMENTUM DX W/WO SPEC BR/WA SPX 05/12/2001 Dr. Jasso, Endo, stage 4 LAPS ABD PRTMANDOMENTUM DX W/WO SPEC BR/WA SPX 06/19/1999 Dr. Jasso, endometriosis LAPS ABD PRTMANDOMENTUM DX W/WO SPEC BR/WA SPX 1997 Dr. Moralez, [place], [place] She found endo (1st dx. of endo) LAPS ABD PRTMANDOMENTUM DX W/WO SPEC BR/WA SPX 08/07/2004 Dr. Jasso. Dx. L'scopy, RIGHT ovarian cystectomy, lysis of adhesions, rigid proctoscopy. (for RIGHT ovarian cyst, stage IV endometriosis LAPS ABD PRTMANDOMENTUM DX W/WO SPEC BR/WA SPX 05/12/2001 Dr. Hussain Jasso.OPERATION: Diagnostic laparoscopy, resection of bilateral endometriomas, and lysis of adhesions LAPS ABD PRTMANDOMENTUM DX W/WO SPEC B (more content not included)... Normal [facility] ED Triage Noteon 11-11-2024 ED Triage Note HNO ID: [id number] Author: ALLYSON CERDA APRN.CNP Service: ? Author Type: Nurse Practitioner Type: ED Triage Notes Filed: 11/11/2024 15:57 Note Text: ED TRIAGE PROVIDER NOTE Patient Name: Callie Kennedy Service Date: 11/11/24 BRIEF HPI: This is a 54 year old female who presents to the ED with: abd pain, diarrhea. Onset wed. Hx of crohns. BRIEF EXAM: NAD Awake and Alert Non labored breathing No focal neurological deficits INITIAL WORKUP AND DECISION MAKING: Orders Placed This Encounter BASIC METABOLIC PNL CBC + DIFF LIPASE BLD Urinalysis w Microscopic, reflex Culture Hepatic Function Panel SIGNATURE: Allyson Cerda APRN.CNP Normal [facility] Hepatic function 2000 panelo n 11-11-2024 Albumin [Mass/Vol] 4.3 g/dL Normal 3.9-4.9 [facility] Comment on above: Order Comment: Speci men Type: BLOOD SPECIMENOrdering Facility: [facility] Address: [address] [place] [address] Performed By: #### 3 040-3, 25714-5, 40633-4 ####[facility] LABORATORYCLIA [id number] [place] [address] [place] ALP [Catalytic activity/Vol] 107 U/L Normal 34-123 [facility] Comment on above: Order Comment: Speci karen Type: BLOOD SPECIMENOrdering Facility: [facility] Address: [address] [place] [address] Performed By: #### 3 040-3, 89835-2, 22408-4 ####[facility] LABORATORYCLIA [id number] [place] [address] [place] ALT With P-5'-P [Catalytic activity/Vol] 44 U/L High 7-38 [facility] Comment on above: Order Comment: Speci men Type: BLOOD SPECIMENOrdering Facility: [facility] Address: [address] [place] [address] Performed By: #### 3 040-3, 35158-8, 11541-9 ####[facility] LABORATORYCLIA [id number] [address] [place] AST With P-5'-P [Catalytic activity/Vol] 23 U/L Normal 13-35 [facility] Comment on above: Order Comment: Speci men Type: BLOOD SPECIMENOrdering Facility: [facility] Address: [address] [place] [address] Performed By: #### 3 040-3, 57299-0, 81432-9 ####[facility] LABORATORYCLIA [id number] [address] [place] Bilirubin [Mass/Vol] 0.2 mg/dL Normal 0.2-1.3 [facility] Comment on above: Order Comment: Speci men Type: BLOOD SPECIMENOrdering Facility: [facility] Address: [address] [place] [address] Performed By: #### 3 -3, 37093-4, 15911-5 ####[facility] LABORATORYCLIA [id number] [address] Bilirubin.conjugated [Mass/Vol] mg/dL Normal <0.3 [facility] Comment on above: Order Comment: Speci men Type: BLOOD SPECIMENOrdering Facility: [facility] Address: [address] [place] [address] Performed By: #### 3 040-3, 70247-7, 55111-7 ####[facility] LABORATORYCLIA [id number] [address] [place] Protein [Mass/Vol] 7.3 g/dL Normal 6.3-8.0 [facility] Comment on above: Order Comment: Speci men Type: BLOOD SPECIMENOrdering Facility: [facility] Address: [address] [place] [address] Performed By: #### 3 040-3, 16823-9, 65739-0 ####[facility] LABORATORYCLIA [id number] [address] [place] Lipase SerPl-cCncon 11-12-19 25 Lipase [Catalytic activity/Vol] 38 U/L Normal 16-61 [facility] Comment on above: Order Comment: Speci men Type: BLOOD SPECIMENOrdering Facility: [facility] Address: [facility] [place] [address] Performed By: #### 3 040-3, 68684-5, 63545-3 ####[facility] LABORATORYCLIA [id number] [address] Urinalysis complete panel (U )on 11-11-2024 Bacteria LM.HPF (Urine sed) [#/Area] Few Abnormal None Seen [facility] Comment on above: Order Comment: Speci men Type: URINE SPECIMENOrdering Facility: [facility] Address: [address] [place] [place] [address] Performed By: #### 2 4356-8 ####[facility] LABORATORYCLIA [id number] [address] Bilirubin Ql (U) Negative Normal Negative [facility] Comment on above: Order Comment: Speci men Type: URINE SPECIMENOrdering Facility: [facility] Address: [address] [place] [address] Performed By: #### 2 4356-8 ####[facility] LABORATORYCLIA [id number] [address] Clarity (Unsp spec) Clear Normal Clear [facility] Comment on above: Order Comment: Speci men Type: URINE SPECIMENOrdering Facility: [facility] Address: [address] [place] [address] Performed By: #### 2 4356-8 ####[facility] LABORATORYCLIA [id number] [address] Color (U) Colorless Normal yellow [facility] Comment on above: Order Comment: Speci men Type: URINE SPECIMENOrdering Facility: [facility] Address: [address] [place] [address] Performed By: #### 2 4356-8 ####[facility] LABORATORYCLIA [id number] [address] Epithelial cells LM.HPF (Urine sed) [#/Area] Few Normal [facility] Comment on above: Order Comment: Speci men Type: URINE SPECIMENOrdering Facility: [facility] Address: [address] [place] [address] Performed By: #### 2 4356-8 ####[facility] LABORATORYCLIA [id number] [address] STATES [facility] Glucose Test strip (U) [Mass/Vol] Negative Normal Trace, Negative [facility] Comment on above: Order Comment: Speci men Type: URINE SPECIMENOrdering Facility: [facility] Address: [address] [place] [address] Performed By: #### 2 4356-8 ####[facility] LABORATORYCLIA [id number] [address] STATES [facility] Hemoglobin Ql (U) Negative Normal Negative, Trace [facility] Comment on above: Order Comment: Speci men Type: URINE SPECIMENOrdering Facility: [facility] Address: [address] [place] [address] Performed By: #### 2 4356-8 ####[facility] LABORATORYCLIA [id number] [address] [place] Ketones Ql (U) Negative Normal Negative, Trace [facility] Comment on above: Order Comment: Speci men Type: URINE SPECIMENOrdering Facility: [facility] Address: [address] [place] [address] Performed By: #### 2 4356-8 ####[facility] LABORATORYCLIA [id number] [address] [place] Leukocyte esterase Test strip Ql (U) Negative Normal Negative, 25 Linus/uL [facility] Comment on above: Order Comment: Speci men Type: URINE SPECIMENOrdering Facility: [facility] Address: [address] [place] [address] Performed By: #### 2 4356-8 ####[facility] LABORATORYCLIA [id number] [place] [address] [place] Nitrite Ql (U) Negative Normal Negative [facility] Comment on above: Order Comment: Speci men Type: URINE SPECIMENOrdering Facility: [facility] Address: [address] [place] [address] Performed By: #### 2 4356-8 ####[facility] LABORATORYCLIA [id number] [address] [place] pH (U) 6.0 [pH] Normal 5.0-8.0 [facility] Comment on above: Order Comment: Speci men Type: URINE SPECIMENOrdering Facility: [facility] Address: [address] [place] [address] Performed By: #### 2 4356-8 ####[facility] LABORATORYCLIA [id number] [address] Protein (U) [Mass/Vol] Negative Normal Trace, Negative [facility] Comment on above: Order Comment: Speci men Type: URINE SPECIMENOrdering Facility: [facility] Address: [address] [place] [address] Performed By: #### 2 4356-8 ####[facility] LABORATORYCLIA [id number] [address] RBC LM.HPF (Urine sed) [#/Area] 0-3 /HPF Normal 0-3 /HPF [facility] Comment on above: Order Comment: Speci men Type: URINE SPECIMENOrdering Facility: [facility] Address: [address] [place] [address] Performed By: #### 2 4356-8 ####[facility] LABORATORYCLIA [id number] [address] [place] Specific gravity (U) [Rel density] 1.004 Low 1.005-1.030 [facility] Comment on above: Order Comment: Speci men Type: URINE SPECIMENOrdering Facility: [facility] Address: [address] [place] [address] Performed By: #### 2 4356-8 ####[facility] LABORATORYCLIA [id number] [address] Urobilinogen Ql (U) Normal Normal Normal [facility] Comment on above: Order Comment: Speci men Type: URINE SPECIMENOrdering Facility: [facility] Address: [address] [place] [id number] Performed By: #### 2 4356-8 ####[facility] LABORATORYCLIA [id number] [place] [id number] [place] STATES [facility] WBC LM.HPF (Urine sed) [#/Area] 0-5 /HPF Normal 0-5 /HPF [facility] Comment on above: Order Comment: Speci men Type: URINE SPECIMENOrdering Facility: [facility] Address: [address] [place], [place] [address] Performed By: #### 2 4356-8 ####[facility] LABORATORYCLIA [id number] [place] [address] [place] [facility] ED Provider Noteon ED Provider Note [facility] ED eMERGENCY dEPARTMENT eNCOUnter Pt Name: Callie Kennedy Birthdate 1970 Date of evaluation: 10/03/2024 Provider: Keri Carroll PA-C CHIEF COMPLAINT Chief Complaint Patient presents with Fall Pt c/o fall on Tuesday. C/o right hip pain. States that there is bruising. States that pain is radiating down her leg and up her back. Pt ambulatory in triage. HISTORY OF PRESENT ILLNESS (Location/Symptom, Timing/Onset,Context/Set ting, Quality, Duration, Modifying Factors, Severity) Note limiting factors. HPI Callie Kennedy is a 54 y.o. female who presents to the emergency department stating that she fell approximately 5 feet and hit her right leg on a dumpster on Tuesday. Patient states she had jumped down from where she was standing and lost her footing. She states the pain and bruising seems to be getting worse instead of better. She took some Tylenol with no relief. Nursing Notes were reviewed. REVIEW OF SYSTEMS (2+ for4; 10+ for level 5) Review of Systems Constitutional: Negative for chills and fever. HENT: Negative for ear pain and sore throat. Eyes: Negative for pain and visual disturbance. Respiratory: Negative for cough and shortness of breath. Cardiovascular: Negative for chest pain and palpitations. Gastrointestinal: Negative for abdominal pain and vomiting. Genitourinary: Negative for dysuria and hematuria. Musculoskeletal: Negative for arthralgias and back pain. Injury right thigh Skin: Negative for color change and rash. Neurological: Negative for seizures and syncope. All other systems reviewed and are negative. PAST MEDICAL HISTORY Past Medical History: Diagnosis Date Asthma Brachial plexus disorders DVT (deep vein thrombosis) in Neck sprain Pulmonary embolism (HCC) 2001 Shoulder sprain Ulcerative (chronic) enterocolitis (CMS/HCC) (HCC) SURGICALHISTORY Past Surgical History: Procedure Laterality Date ANTERIOR COMPARTMENT DECOMPRESSION 2016 [place] APPENDECTOMY BREAST LUMPECTOMY 1991 x3 SECTION (HISTORICAL) 02/27/2002 twins ESOPHAGOGASTRODUODENOSCO PY N/A 06/01/2022 Dr Dejesus [facility] HYSTERECTOMY 03/23/2010 Louisa @ [facility] LAPAROSCOPY DIAGNOSTIC / BIOPSY / ASPIRATION / LYSIS 2003 [phone] Dr. Jasso @ [facility] & Dr. Jarvis @ [place], [place] SHOULDER ARTHROSCOPY Right 12/13/2018 Dr. Hernandez @ [facility] SHOULDER SURGERY Right 11/23/2019 RT shoulder manipulation Under Anes, MSK @ [facility] TENDON RELEASE 05/28/[address] Patel @ [facility] TRIGGER FINGER RELEASE Right 2006 [facility] CURRENT MEDICATIONS Previous Medications ALBUTEROL 108 (90 BASE) MCG/ACT INHALER Inhale 2 puffs 4 times daily as needed. FLUTICASONE (FLONASE) 50 MCG/ACT NASAL SPRAY Administer 1 spray into each nostril daily. Shake gently. Before first use, prime pump. After use, clean tip and replace cap. LACTOBACILLUS RHAMNOSUS, GG, ( PROBIOTIC DIGESTIVE CARE) CAPSULE Take 1 capsule by mouth in the morning. MONTELUKAST (SINGULAIR) 10 MG TABLET Take 10 mg by mouth daily. PANTOPRAZOLE (PROTONIX) 40 MG EC TABLET Take 1 tablet (40 mg) by mouth every morning (before breakfast). Do not crush, chew, or split. Do not start before June 04, 2022. TRAZODONE (DESYREL) 100 MG TABLET Take 100 mg by mouth Nightly as needed. VENLAFAXINE XR (EFFEXOR XR) 75 MG 24 HR CAPSULE Take 75 mg by mouth daily. Alera [hydroquinone], Cortisone, and Codeine FAMILY HISTORY Family History Problem Relation Name Age of Onset Heart disease Father Arthritis Mother Heart disease Mother SOCIAL HISTORY Social History Socioeconomic History Marital status: Tobacco Use Smoking status: Former Smokeless tobacco: Never Vaping Use Vaping status: Never Used Substance and Sexual Activity Alcohol use: Not Currently Drug use: Never Social Drivers of Health Food Insecurity: No Food Insecurity (02/10/2020) Received from [facility] Hunger Vital Sign Worried About Running Out of Food in the Last Year: Never true Ran Out of Food in the Last Year: Never true Transportation Needs: No Transportation Needs (02/10/2020) Received from [facility] PRAPARE - Transportation Lack of Transportation (Medical): No Lack of Transportation (Non-Medical): No Housing Stability: Low Risk (05/31/2022) Housing Stability Vital Sign Unable to Pay for Housing in the Last Year: No Number of Places Lived in the Last Year: 1 Unstable Housing in the Last Year: No SCREENINGS PHYSICAL EXAM (5+ for level 4, 8+ for level 5) @EDTRIAGEVSS@ Physical Exam Vitals and nursing note reviewed. Constitutional: General: She is not in acute distress. Appearance: Normal appearance. She is well-developed. HENT: Head: Normocephalic and atraumatic. Eyes: Conjunctiva/sclera: Conjunctivae normal. Cardiovascular: Rate and Rhythm: Normal rate and reg (more content not included)... Normal [facility] XR Hip - right 3 Viewson No fracture or dislocation. Report Dictated on Electronically Signed By: Naldo Diaz MD Electronically Signed Date/Time: 10/03/2024 11:04 PM [facility] Patient Name: CALLIE KENNEDY : 1970 [facility]#: [id number] Exam Date/Time: 10/03/2024 22:56 Procedure: XR HIP 2 OR 3 VW RIGHT Ordering Provider: CARROLL AMY Reason For Exam: HIP INJURY; fall PELVIS AND RIGHT HIP: CLINICAL INDICATION: Pain, injury. TECHNIQUE: AP pelvis plus AP and lateral views of the right hip COMPARISON: None. FINDINGS: There is no evidence for fracture or dislocation. The hips joints are unremarkable. The sacroiliac joints are normal. No bone lesion is identified. There is no soft tissue abnormality. [facility] Naldo Diaz MD - 10/03/2024 Patient Name: CALLIE KENNEDY : 1970 Exam Date/Time: 10/03/2024 22:56 Procedure: XR HIP 2 OR 3 VW RIGHT Ordering Provider: CARROLL AMY Reason For Exam: HIP INJURY; fall PELVIS AND RIGHT HIP: CLINICAL INDICATION: Pain, injury. TECHNIQUE: AP pelvis plus AP and lateral views of the right hip COMPARISON: None. FINDINGS: There is no evidence for fracture or dislocation. The hips joints are unremarkable. The sacroiliac joints are normal. No bone lesion is identified. There is no soft tissue abnormality. IMPRESSION: No fracture or dislocation. Report Dictated on Electronically Signed By: Naldo Diaz MD Electronically Signed Date/Time: 10/03/2024 11:04 PM EDT [employer] Radiology Study observation (narrative) [facility] XR Hip - right 3 ViewsOrdere d By: Naldo Diaz on 10-03-2024 [employer] Work Phone: CNPFelicita 07-13-2024 [facility] Telephone (GSTNOR) -------- CALLIE KENNEDY ([id number]) 1970 F CHT Date Time Provider Department 07/13/24 ALIA PARMAR GSTNOR During your visit today, we recorded the following information about you: Sharri Phelps 07/13/2024 9:36 AM Signed Patient called in stating she has missed work all week due to a flair up. She had lab work done yesterday and is requesting a member of the clinical team to review it with her at the earliest convenience. Nevaeh Carrera MA 07/13/2024 9:43 AM Signed Pt notified through my chart that we do not have all of her labs back yet. We will contact her as soon as we do. Nevaeh Carrera MA Allergies As of Date: 07/13/2024 Noted Allergy Reaction HYDROQUINONE 09/23/2022 10 - Anaphylaxis CODEINE 10/15/2003 8 - GI Upset GADOTERATE MEGLUMINE 10/24/2023 16 - Unknown HUMIRA (ADALIMUMAB) 11/19/2022 4 - Hives STELARA (USTEKINUMAB) 11/19/2022 12 - Shortness of Breath Date Reviewed: 05/18/2024 Reviewed by: Isabel York, OLGA - Fully Assessed Reason for Visit: Results [95] Prescriptions as of 07/13/2024 - risankizumab-rzaa (SKYRIZI) 360 mg/2.4 mL (150 mg/mL) wearable injector Inject 360mg (1 cartridge) subcutaneously every 8 weeks. Start 4 weeks after the last infusion dose. - baclofen 10 mg tablet Take 10 mg by mouth three times a day. - polyethylene glycol 3350 17 gram packet Take 17 g by mouth once daily. - iv contrast (will be provided with radiology test) CT Enterography W Inject, intravenously, once for 1 dose.No IV access, insert saline lock prior to the beginning of sedation, infusion, injection of imaging exam. Discontinue saline lock post exam. If Pt. has a central line or IVAD, may access for administration according to line specific nursing protocol. Once exam is complete flush line and de-access according to line specific nursing protocol in the CT contrast administration guidelines link. - enteric contrast (will be provided with radiology test) For CT ENTEROGRAPHY W IVCON order Administer, As Directed One Time Only, via Oral, Rectal, both Oral and Rectal, Enteric Tube, Stoma or Indwelling Catheter,? Enteric Contrast as designated per enteric contrast guidelines. - traZODone (DESYREL) 100 mg tablet Take 100 mg by mouth at bedtime as needed. For Insomnia - venlafaxine ER (EFFEXOR XR) 75 mg 24 hr capsule Take 75 mg by mouth once daily. - montelukast (SINGULAIR) 10 mg tablet Take 1 tablet by mouth once daily. - albuterol HFA (PROVENTIL HFA, VENTOLIN HFA) 90 mcg/actuation inhaler Inhale 2 Puffs as instructed every 6 hours. Problem List As Of Date 07/13/2024 Noted Resolved Lump or mass in breast [N63.0] 02/20/2007 02/07/2018 Multinodular goiter [E04.2] 05/26/2010 Right lower quadrant abdominal pain [R10.31] 01/31/2016 02/07/2018 Endometriosis [N80.9] 02/13/2016 02/07/2018 Pelvic adhesions [N73.6] 02/13/2016 02/07/2018 Colitis [K52.9] 02/07/2020 Severe protein-calorie malnutrition (HCC) [E43] 02/07/2020 Personal history of nicotine dependence [Z87.89*12/23/2016 Irritable bowel syndrome [K58.9] 02/24/2021 Pectoralis minor syndrome (HCC) [I77.89] 02/24/2021 Pulmonary embolism (HCC) [I26.99] 06/06/2001 Atypical chest pain [R07.89] 09/23/2022 Crohn's disease of large intestine without comp*02/13/2024 Encounter Status:Closed by NEVAEH CARRERA on 07/13/24 Normal [facility] CBC W Auto Differential pane l (Bld)on 07-12-2024 Basophils (Bld) [#/Vol] 0.03 10*3/uL Normal <0.11 [facility] Comment on above: Order Comment: Speci men Type: BLOOD SPECIMENOrdering Facility: [facility] Address: [address] [place] [address] Performed By: #### 5 7021-8 ####[facility] LABCLIA [id number] [place] [address] [place] Basophils/100 WBC (Bld) 0.5 % Normal [facility] Comment on above: Order Comment: Speci men Type: BLOOD SPECIMENOrdering Facility: [facility] Address: [address] [place] [address] Performed By: #### 5 7021-8 ####[facility] LABCLIA [id number] [place] [address] [place] Differential cell count method Nom (Bld) Auto Normal [facility] Comment on above: Order Comment: Speci men Type: BLOOD SPECIMENOrdering Facility: [facility] Address: [address] [place] [address] Performed By: #### 5 7021-8 ####[facility] LABCLIA [id number] [place] [address] [place] Eosinophils (Bld) [#/Vol] 10*3/uL Normal <0.46 [facility] Comment on above: Order Comment: Speci men Type: BLOOD SPECIMENOrdering Facility: [facility] Address: [address] [place] [address] Performed By: #### 5 7021-8 ####[facility] LABCLIA [id number] [place] [address] [place] Eosinophils/100 WBC (Bld) 0.3 % Normal [facility] Comment on above: Order Comment: Speci men Type: BLOOD SPECIMENOrdering Facility: [facility] Address: [address] [place] [address] Performed By: #### 5 7021-8 ####[facility] LABCLIA [id number] [place] [address] [place] Erythrocyte distribution width (RBC) [Ratio] 12.0 % Normal 11.5-15.0 [facility] Comment on above: Order Comment: Speci men Type: BLOOD SPECIMENOrdering Facility: [facility] Address: [address] [place] [address] Performed By: #### 5 7021-8 ####[facility] LABCLIA [id number] [place] [address] [place] Hematocrit (Bld) [Volume fraction] 38.9 % Normal 36.0-46.0 [facility] Comment on above: Order Comment: Speci men Type: BLOOD SPECIMENOrdering Facility: [facility] Address: [address] [place] [address] Performed By: #### 5 7021-8 ####[facility] LABCLIA [id number] [place] [address] [place] Hemoglobin (Bld) [Mass/Vol] 13.0 g/dL Normal 11.5-15.5 [facility] Comment on above: Order Comment: Speci men Type: BLOOD SPECIMENOrdering Facility: [facility] Address: [address] [place] [address] Performed By: #### 5 7021-8 ####[facility] LABCLIA [id number] [place] [address] [place] Immature granulocytes (Bld) [#/Vol] 10*3/uL Normal <0.10 [facility] Comment on above: Order Comment: Speci men Type: BLOOD SPECIMENOrdering Facility: [facility] Address: [address] [place] [address] Performed By: #### 5 7021-8 ####[facility] LABIA [id number] [place] [address] [place] Immature granulocytes/100 WBC (Bld) 0.2 % Normal [facility] Comment on above: Order Comment: Speci men Type: BLOOD SPECIMENOrdering Facility: [facility] Address: [address] [place] [address] Performed By: #### 5 7021-8 ####[facility] LABCLIA [id number] [place] [address] [place] Lymphocytes (Bld) [#/Vol] 1.64 10*3/uL Normal 1.00-4.00 [facility] Comment on above: Order Comment: Speci men Type: BLOOD SPECIMENOrdering Facility: [facility] Address: [address] [place] [address] Performed By: #### 5 7021-8 ####[facility] LABCLIA [id number] [place] [address] [place] Lymphocytes/100 WBC (Bld) 26.4 % Normal [facility] Comment on above: Order Comment: Speci men Type: BLOOD SPECIMENOrdering Facility: [facility] Address: [address] [place] [address] Performed By: #### 5 7021-8 ####[facility] LABIA [id number] [place] [address] [place] MCH (RBC) [Entitic mass] 30.2 pg Normal 26.0-34.0 [facility] Comment on above: Order Comment: Speci men Type: BLOOD SPECIMENOrdering Facility: [facility] Address: [address] [place] [address] Performed By: #### 5 7021-8 ####[facility] LABIA [id number] [place] [address] [place] MCHC (RBC) [Mass/Vol] 33.4 g/dL Normal 30.5-36.0 [facility] Comment on above: Order Comment: Speci men Type: BLOOD SPECIMENOrdering Facility: [facility] Address: [address] [place] [address] Performed By: #### 5 7021-8 ####[facility] LABIA [id number] [place] [address] [place] MCV (RBC) [Entitic vol] 90.5 fL Normal 80.0-100.0 [facility] Comment on above: Order Comment: Speci men Type: BLOOD SPECIMENOrdering Facility: [facility] Address: [address] [place] [address] Performed By: #### 5 7021-8 ####[facility] LABIA [id number] [place] [address] [place] Monocytes (Bld) [#/Vol] 0.31 10*3/uL Normal <0.87 [facility] Comment on above: Order Comment: Speci men Type: BLOOD SPECIMENOrdering Facility: [facility] Address: [address] [place] [address] Performed By: #### 5 7021-8 ####[facility] LABCLIA [id number] [place] [address] [place] Monocytes/100 WBC (Bld) 5.0 % Normal [facility] Comment on above: Order Comment: Speci men Type: BLOOD SPECIMENOrdering Facility: [facility] Address: [address] [place] [address] Performed By: #### 5 7021-8 ####[facility] LABCLIA [id number] [place] [address] [place] Neutrophils (Bld) [#/Vol] 4.21 10*3/uL Normal 1.45-7.50 [facility] Comment on above: Order Comment: Speci men Type: BLOOD SPECIMENOrdering Facility: [facility] Address: [address] [place] [address] Performed By: #### 5 7021-8 ####[facility] LABCLIA [id number] [place] [address] [place] Neutrophils/100 WBC (Bld) 67.6 % Normal [facility] Comment on above: Order Comment: Speci men Type: BLOOD SPECIMENOrdering Facility: [facility] Address: [address] [place] [address] Performed By: #### 5 7021-8 ####[facility] LABCLIA [id number] [place] [address] [place] Nucleated RBC (Bld) [#/Vol] 10*3/uL Normal <0.01 [facility] Comment on above: Order Comment: Speci men Type: BLOOD SPECIMENOrdering Facility: [facility] Address: [address] [place] [address] Performed By: #### 5 7021-8 ####[facility] LABCLIA [id number] [place] [address] [place] Nucleated RBC/100 WBC (Bld) [Ratio] 0.0 /100 WBC Normal [facility] Comment on above: Order Comment: Speci men Type: BLOOD SPECIMENOrdering Facility: [facility] Address: [address] [place] [address] Performed By: #### 5 7021-8 ####[facility] LABCLIA [id number] [place] [address] [place] Platelet mean volume (Bld) [Entitic vol] 10.6 fL Normal 9.0-12.7 [facility] Comment on above: Order Comment: Speci men Type: BLOOD SPECIMENOrdering Facility: [facility] Address: [address] [place] [address] Performed By: #### 5 7021-8 ####[facility] LABIA [id number] [place] [address] [place] Platelets (Bld) [#/Vol] 272 10*3/uL Normal 150-400 [facility] Comment on above: Order Comment: Speci men Type: BLOOD SPECIMENOrdering Facility: [facility] Address: [address] [place] [address] Performed By: #### 5 7021-8 ####[facility] LABIA [id number] [place] [address] [place] RBC (Bld) [#/Vol] 4.30 10*6/uL Normal 3.90-5.20 [facility] Comment on above: Order Comment: Speci men Type: BLOOD SPECIMENOrdering Facility: [facility] Address: [address] [place] [address] Performed By: #### 5 7021-8 ####[facility] [facility] [id number] [address] [id number] [address] [place] WBC (Bld) [#/Vol] 6.22 10*3/uL Normal 3.70-11.00 [facility] Comment on above: Order Comment: Speci men Type: BLOOD SPECIMENOrdering Facility: [facility] Address: [address] [place] [address] Performed By: #### 5 7021-8 ####[facility] LABIA [id number] [place] [address] [place] CRP SerPl-ncon 07-12-2024 CRP [Mass/Vol] mg/L Normal <0.9 [facility] Comment on above: Order Comment: Speci men Type: BLOOD SPECIMENOrdering Facility: [facility] Address: [address] [place] [address] Performed By: #### 1 988-5, 28435-8 ####[facility] LABIA [id number] [place] [address] [place] Comprehensive metabolic 2000 panelon 07-12-2024 Albumin [Mass/Vol] 4.1 g/dL Normal 3.9-4.9 [facility] Comment on above: Order Comment: Speci men Type: BLOOD SPECIMENOrdering Facility: [facility] Address: [address] [place] [address] Performed By: #### 1 988-5, 49247-7 ####[facility] LABIA [id number] [place] [address] [place] ALP [Catalytic activity/Vol] 84 U/L Normal 34-123 [facility] Comment on above: Order Comment: Speci men Type: BLOOD SPECIMENOrdering Facility: [facility] Address: [address] [place] [address] Performed By: #### 1 988-5, 23027-6 ####[facility] LABCLIA [id number] [place] [address] [place] ALT [Catalytic activity/Vol] 33 U/L Normal 7-38 [facility] Comment on above: Order Comment: Speci men Type: BLOOD SPECIMENOrdering Facility: [facility] Address: [address] [id number] Performed By: #### 1 988-5, 31431-4 ####[facility] LABCLIA [id number] [place] [id number] [place] Anion gap [Moles/Vol] 12 mmol/L Normal 8-15 [facility] Comment on above: Order Comment: Speci men Type: BLOOD SPECIMENOrdering Facility: [facility] Address: [address] [place] [address] Performed By: #### 1 988-5, 14349-9 ####[facility] LABCLIA [id number] [place] [address] [place] AST [Catalytic activity/Vol] 25 U/L Normal 13-35 [facility] Comment on above: Order Comment: Speci men Type: BLOOD SPECIMENOrdering Facility: [facility] Address: [address] [place] [address] Performed By: #### 1 988-5, 26241-0 ####[facility] LABCLIA [id number] [place] [address] [place] Bilirubin [Mass/Vol] 0.2 mg/dL Normal 0.2-1.3 [facility] Comment on above: Order Comment: Speci men Type: BLOOD SPECIMENOrdering Facility: [facility] Address: [address] [id number] Performed By: #### 1 988-5, 44850-3 ####[facility] LABCLIA [id number] [place] [address] [place] Calcium [Mass/Vol] 9.3 mg/dL Normal 8.5-10.2 [facility] Comment on above: Order Comment: Speci men Type: BLOOD SPECIMENOrdering Facility: [facility] Address: [address] [id number] Performed By: #### 1 988-5, 20639-0 ####[facility] LABCLIA [id number] [place] [id number] [place] Chloride [Moles/Vol] 105 mmol/L Normal 98-107 [facility] Comment on above: Order Comment: Speci men Type: BLOOD SPECIMENOrdering Facility: [facility] Address: [address] [place] [address] Performed By: #### 1 988-5, 62976-4 ####[facility] LABCLIA [id number] [place] [address] [place] CO2 [Moles/Vol] 26 mmol/L Normal 22-30 [facility] Comment on above: Order Comment: Speci men Type: BLOOD SPECIMENOrdering Facility: [facility] Address: [address] [place] [address] Performed By: #### 1 988-5, 72744-6 ####[facility] LABCLIA [id number] [place] [address] [place] Creatinine [Mass/Vol] 0.88 mg/dL Normal 0.58-0.96 [facility] Comment on above: Order Comment: Speci men Type: BLOOD SPECIMENOrdering Facility: [facility] Address: [address] [place] [address] Performed By: #### 1 988-5, 24043-7 ####[facility] LABCLIA [id number] [place] [id number] [place] Creatinine and Glomerular filtration rate.predicted panel (S/P/Bld) 79 mL/min/1.73m??? Normal >=60 [facility] Comment on above: Order Comment: Speci men Type: BLOOD SPECIMENOrdering Facility: [facility] Address: [address] [place] [address] Result Comment: Marla mated Glomerular Filtration Rate (eGFR) is calculated using the 2020 CKD-EPI creatinine equation. This equation utilizes serum creatinine, sex, and age as parameters. The creatinine assay has traceable calibration to isotope dilution-mass spectrometry. Refer to KDIGO guidelines for clinical interpretation. In patients with unstable renal function, e.g. those with acute kidney injury, the eGFR may not accurately reflect actual GFR. Performed By: #### 1 988-5, 33107-3 ####[facility] LABCLIA [id number] [place] [address] [place] Glucose [Mass/Vol] 117 mg/dL High 74-99 [facility] Comment on above: Order Comment: Speci men Type: BLOOD SPECIMENOrdering Facility: [facility] Address: [address] [place] [address] Result Comment: The [place] [employer] (ADA) provides guidance for cutoff values for fasting glucose and random glucose. The ADA defines fasting as no caloric intake for at least 8 hours. Fasting plasma glucose results between 100 to 125 mg/dL indicate increased risk for diabetes (prediabetes). Fasting plasma glucose results greater than or equal to 126 mg/dL meet the criteria for diagnosis of diabetes. In the absence of unequivocal hyperglycemia, results should be confirmed by repeat testing. In a patient with classic symptoms of hyperglycemia or hyperglycemic crisis, random plasma glucose results greater than or equal to 200 mg/dL meet the criteria for diagnosis of diabetes. Reference: Standards of Medical Care in Diabetes 2016, [place] [employer]. Diabetes Care. 2016.39(Suppl 1). Performed By: #### 1 988-5, 68923-1 ####[facility] LABCLIA [id number] [place] [id number] [place] Potassium [Moles/Vol] 4.3 mmol/L Normal 3.7-5.1 [facility] Comment on above: Order Comment: Mihaii men Type: BLOOD SPECIMENOrdering Facility: [facility] Address: [address] [place] [address] Performed By: #### 1 988-5, 99803-7 ####[facility] LABCLIA [id number] [place] [address] [place] Protein [Mass/Vol] 6.9 g/dL Normal 6.3-8.0 [facility] Comment on above: Order Comment: Speci men Type: BLOOD SPECIMENOrdering Facility: [facility] Address: [address] [place] [address] Performed By: #### 1 988-5, 54544-3 ####[facility] LABCLIA [id number] [place] [address] [place] Sodium [Moles/Vol] 143 mmol/L Normal 136-144 [facility] Comment on above: Order Comment: Speci men Type: BLOOD SPECIMENOrdering Facility: [facility] Address: [address] [place] [address] Performed By: #### 1 988-5, 85188-1 ####[facility] LABCLIA [id number] [place] [address] [place] Urea nitrogen [Mass/Vol] 14 mg/dL Normal 7-21 [facility] Comment on above: Order Comment: Speci men Type: BLOOD SPECIMENOrdering Facility: [facility] Address: [address] [place] [address] Performed By: #### 1 988-5, 22897-5 ####[facility] LABCLIA [id number] [address] [place] CNPNon 06-24-2024 CNPN Telephone (HEMAPOB) -------- CALLIE KENNEDY ([id number]) 1970 F T Date Time Provider Department 06/24/24 RUBÉN MERCADO During your visit today, we recorded the following information about you: Rubén Mercado MD 06/24/2024 2:29 AM Signed Please call Callie and advise her that her hypercoagulable workup, including - Activated protein C resistance, which screens for factor V Leiden mutation - Lupus anticoagulant - And other gene and protein studies Was negative. Therefore, there is no need to initiate any blood thinners surrounding her upcoming procedures. Thank you- please let me know if questions. Beckie Carroll RN 06/25/2024 8:58 AM Signed Called patient and alerted her to Dr. Mercado' message, she voiced understanding. Beckie Carroll RN Allergies As of Date: 06/24/2024 Noted Allergy Reaction HYDROQUINONE 09/23/2022 10 - Anaphylaxis CODEINE 10/15/2003 8 - GI Upset GADOTERATE MEGLUMINE 10/24/2023 16 - Unknown HUMIRA (ADALIMUMAB) 11/19/2022 4 - Hives STELARA (USTEKINUMAB) 11/19/2022 12 - Shortness of Breath Date Reviewed: 05/18/2024 Reviewed by: Isabel York, OLGA - Fully Assessed Prescriptions as of 06/25/2024 - risankizumab-rzaa (SKYRIZI) 360 mg/2.4 mL (150 mg/mL) wearable injector Inject 360mg (1 cartridge) subcutaneously every 8 weeks. Start 4 weeks after the last infusion dose. - baclofen 10 mg tablet Take 10 mg by mouth three times a day. - polyethylene glycol 3350 17 gram packet Take 17 g by mouth once daily. - iv contrast (will be provided with radiology test) CT Enterography W Inject, intravenously, once for 1 dose.No IV access, insert saline lock prior to the beginning of sedation, infusion, injection of imaging exam. Discontinue saline lock post exam. If Pt. has a central line or IVAD, may access for administration according to line specific nursing protocol. Once exam is complete flush line and de-access according to line specific nursing protocol in the CT contrast administration guidelines link. - enteric contrast (will be provided with radiology test) For CT ENTEROGRAPHY W IVCON order Administer, As Directed One Time Only, via Oral, Rectal, both Oral and Rectal, Enteric Tube, Stoma or Indwelling Catheter,? Enteric Contrast as designated per enteric contrast guidelines. - traZODone (DESYREL) 100 mg tablet Take 100 mg by mouth at bedtime as needed. For Insomnia - venlafaxine ER (EFFEXOR XR) 75 mg 24 hr capsule Take 75 mg by mouth once daily. - montelukast (SINGULAIR) 10 mg tablet Take 1 tablet by mouth once daily. - albuterol HFA (PROVENTIL HFA, VENTOLIN HFA) 90 mcg/actuation inhaler Inhale 2 Puffs as instructed every 6 hours. Problem List As Of Date 06/24/2024 Noted Resolved Lump or mass in breast [N63.0] 02/20/2007 02/07/2018 Multinodular goiter [E04.2] 05/26/2010 Right lower quadrant abdominal pain [R10.31] 01/31/2016 02/07/2018 Endometriosis [N80.9] 02/13/2016 02/07/2018 Pelvic adhesions [N73.6] 02/13/2016 02/07/2018 Colitis [K52.9] 02/07/2020 Severe protein-calorie malnutrition (HCC) [E43] 02/07/2020 Personal history of nicotine dependence [Z87.89*12/23/2016 Irritable bowel syndrome [K58.9] 02/24/2021 Pectoralis minor syndrome (HCC) [I77.89] 02/24/2021 Pulmonary embolism (HCC) [I26.99] 06/06/2001 Atypical chest pain [R07.89] 09/23/2022 Crohn's disease of large intestine without comp*02/13/2024 Encounter Status:Closed by RUBÉN MERCADO on 06/24/24 Normal [facility] Activated protein C resistan ce (PPP) [Interp]Ordered By: Ashleigh Martínez on 05-14-2024 Activated protein C resistance Coag (PPP) [Time ratio] 2.24 - PINF [facility] Comment on above: No resistance to Act ivated Protein C was identified in a functional test. The Factor V Leiden mutation is unlikely. This does not exclude other causes for the hypercoagulable state. Coagulation factor X activated act Coag Qn (PPP) NINF - 0.10 [facility] Comment on above: This test was starla card, and its performance characteristics determined by the [facility] Department of Pathology and Laboratory Medicine. It has not been cleared or approved by the FDA. The [facility] Department of Pathology and Laboratory Medicine is regulated under CLIA as qualified to perform high-complexity testing. This test is used for clinical purposes. It should not be regarded as investigational or for research. F2 gene targeted mutation an alysis Molgen Nom (Bld/Tiss)on 05-14-2024 F2 gene mutations tested for Molgen Nom (Bld/Tiss) Prothrom[facility] Accession Number: [id number] Result: NORMAL Interpretation: The DNA sample is negative for the c.*97G>A variant (legacy name 15191A>A) in the 3' untranslated region of the Factor II (F2) gene. This result is not associated with an increased risk of thromboembolic disease. Thromboembolic disease is a multifactorial disorder and other causes are not excluded by this result. Methodology: Isolated Genomic DNA from the patient's blood specimen is evaluated for the c*97G>A ([id number]) variant of the F2 gene [RefSeq NM_000506.53;GRCh38/hg38 ] by multiplex polymerase chain reaction (PCR) followed by melting curve analysis. Limitations: This assay is designed to detect the c.*97G>A (22394S>A) variant in the F2 gene. Uncommon variants or single nucleotide polymorphisms may affect binding of probes and may rarely result in false negative, false positive or indeterminate results. This assay does not detect other disease-associated rare variants in F2 or other causes of thromboembolic disease. Disclaimer: This test was developed and its performance characteristics determined by [facility]'s Pathology and Laboratory Medicine Department. It has not been cleared or approved by the FDA. [facility]'s Pathology and Laboratory Medicine Department is regulated under CLIA as certified to perform high-complexity testing. This test is used for clinical purposes. It should not be regarded as investigational or for research. Testing and interpretation performed at [facility], [address] [place], [place] [id number]. CLIA Number: [id number] References: 1) Inheritied Thrombophilias in . ACOG Practice Bulletin. No. 197. [place] [employer]. Obsete Gynecol 2018;132:e18-34. 2) Rm SR, Kelly FR, Gilda PH, and Gisell RM. A common genetic variation in the 3'-untranslated region of the prothrombin gene is associated with elevated plasma prothrombin levels and an increase in venous thrombosis. Blood 88:3698-703, 1995. 3) Ovidio Olivia, Pushpa Dial, Felicia Warren, Sai Mcdonald. Prothrombin 14892Y>T: 16 new cases, association with the 68694K>G polymorphism, and literature review. J Thromb Haemost. 2009;9:1585-7. As reviewed by Rubia Rice, Ph.D. [facility] No Panel InformationOrdered By: Ashleigh Martínez on 05-14-2024 Interpretation and review of laboratory results Normal [facility] PROTEIN C FUNCTon 05-14-2024 Protein C actual/normal Coag (PPP) [Relative time] 118 % 76 - 147 % [facility] PROTEIN S CLOTTABLEon 2023 Coagulation factor X activated act Coag Qn (PPP) NINF - 0.10 [facility] Comment on above: This test was starla card, and its performance characteristics determined by the [facility] Department of Pathology and Laboratory Medicine. It has not been cleared or approved by the FDA. The [facility] Department of Pathology and Laboratory Medicine is regulated under CLIA as qualified to perform high-complexity testing. This test is used for clinical purposes. It should not be regarded as investigational or for research. Interpretation and review of laboratory results Normal [facility] Protein S actual/normal Coag (PPP) [Relative time] 119 % 59 - 152 % [facility] ANTITHROMBIN ACTIVITYOrdered By: Ifeoma Rodriguez on 05-11-2024 Antithrombin actual/normal Chromogenic method (PPP) [Rel catalytic activity/Vol] % High 84 - 123 % [facility] Comment on above: The functional antit hrombin level is elevated. This is of doubtful clinical significance. AT III Act/Nor PPP Chroon Antithrombin actual/normal Chromogenic method (PPP) [Rel catalytic activity/Vol] >128 High 84-123 [facility] Comment on above: Order Comment: Speci men Type: BLOOD SPECIMENOrdering Facility: [facility] Address: [address] [place] [address] Result Comment: The functional antithrombin level is elevated. This is of doubtful clinical significance. Performed By: #### 2 7811-9 ####[facility] LABORATORYCLIA [id number] [place] [address] [place] Activated protein C resistan ce (PPP) [Interp]on 05-11-2024 Activated protein C resistance Coag (PPP) [Time ratio] 2.24 Ratio Normal >1.96 [facility] Comment on above: Order Comment: Speci karen Type: BLOOD SPECIMENOrdering Facility: [facility] Address: [address] [place] [address] Result Comment: No r esistance to Activated Protein C was identified in a functional test. The Factor V Leiden mutation is unlikely. This does not exclude other causes for the hypercoagulable state. Performed By: #### 4 8591-2, PRCFUN ####[facility] LABCLIA [id number] [address] [place] Antithrombin actual/normal C hromogenic method (PPP) [Rel catalytic activity/Vol]Ordered By: Ifeoma Rodriguez on 05-11-2024 Interpretation and review of laboratory results Abnormal [facility] BETA 2 GLYCOPROTEIN, IGGon 1 07-12-2023 Beta 2 glycoprotein 1 IgG IA Qn <9 Normal <20 [facility] Comment on above: Order Comment: Mihaisparkle jones Type: BLOOD SPECIMENOrdering Facility: [facility] Address: [address] [place] [address] Result Comment: <20 SGU Negative 20-80 SGU Low Positive >80 SGU High Positive These results were obtained with the [employer] QUANTA Lite B2 GPI IgG RUTHY. B2 GPI IgG values obtained with different manufacturers' assay methods may not be used interchangeably. The magnitude of the reported IgG levels cannot be correlated to an endpoint titer. Performed By: #### C ARCAMILLAG, MICM, BETA2G, BETA2M, 5076-5 ####[facility] LABCLIA [id number] [address] [place] BETA 2 GLYCOPROTEIN, IGMon 1 07-12-2023 Beta 2 glycoprotein 1 IgM IA Qn <9 Normal <20 [facility] Comment on above: Order Comment: Specsparkle jones Type: BLOOD SPECIMENOrdering Facility: [facility] Address: [address] [place] [address] Result Comment: <20 SMU Negative 20-80 SMU Low Positive >80 SMU High positive These results were obtained with the [employer] QUANTA Lite B2 GPI IgM RUTHY. B2 GPI IgM values obtained with different manufacturers' assay methods may not be used interchangeably. The magnitude of the reported IgM levels cannot be correlated to an endpoint titer. Performed By: #### C EDD, CARDIM, BETA2G, BETA2M, 5076-5 ####[facility] LABCLIA [id number] [address] [place] CARDIOLIPIN IGG ABSon 2023 Cardiolipin IgG IA Qn (S) <9.0 Normal <15.0 [facility] Comment on above: Order Comment: [facility] Type: BLOOD SPECIMENOrdering Facility: [facility] Address: [address] [place] [address] Result Comment: <15 GPL Negative 15-20 GPL Indeterminate >20 GPL Positive The following results were obtained with the [employer] QUANTA Lite SURJIT IgG III RUTHY. Cardiolipin IgG values obtained with the different manufacturers' assay methods may not be used interchangeably. The magnitude of the reported IgG levels cannot be correlated to an endpoint titer. Performed By: #### C JOELG, CARDIM, BETA2G, BETA2M, 5076-5 ####[facility] LABCLIA [id number] [place] [address] [place] CARDIOLIPIN IGM ABSon 2023 Cardiolipin IgM IA Qn (S) <9.0 Normal <12.5 [facility] Comment on above: Order Comment: Grace jones Type: BLOOD SPECIMENOrdering Facility: [facility] Address: [address] [place] [address] Result Comment: <12. 5 MPL Negative 12.5-20 MPL Indeterminate >20 MPL Positive The following results were obtained with the [employer] QUANTA Lite SURJIT IgM III RUTHY. Cardiolipin IgM values obtained with the different manufacturers' assay methods may not be used interchangeably. The magnitude of the reported IgM levels cannot be correlated to an endpoint titer. ??? Performed By: #### C FREDERIC PUGA, BETA2G, BETA2M, 5076-5 ####[facility] LABCLIA [id number] [address] [place] Cardiolipin IgA Ser IA-aCnco n 05-11-2024 Cardiolipin IgA IA Qn (S) <9.0 Normal <12.0 [facility] Comment on above: Order Comment: Grace jones Type: BLOOD SPECIMENOrdering Facility: [facility] Address: [address] [place] [address] Result Comment: <12 APL Negative 12-20 APL Indeterminate >20 APL Positive The following results were obtained with the [employer] QUANTA Lite SURJIT IgA III RUTHY. Cardiolipin IgA values obtained with the different manufacturers' assay methods may not be used interchangeably. The magnitude of the reported IgA levels cannot be correlated to an endpoint titer. Performed By: #### C FREDERIC PUGA, BETA2G, BETA2M, 5076-5 ####[facility] LABCLIA [id number] [address] [place] LUPUS PANELon 05-11-2024 aPTT Coag (Bld) [Time] 37.4 s Normal 30.2-43.0 [facility] Comment on above: Order Comment: Specsparkle jones Type: BLOOD SPECIMENOrdering Facility: [facility] Address: [address] [place] [address] Result Comment: This test was developed, and its performance characteristics determined by the [facility] Department of Pathology and Laboratory Medicine. It has not been cleared or approved by the FDA. The [facility] Department of Pathology and Laboratory Medicine is regulated under CLIA as qualified to perform high-complexity testing. This test is used for clinical purposes. It should not be regarded as investigational or for research. Performed By: #### L UPPL, [id number] ####[facility] LABCLIA [id number] [place] [address] [place] aPTT Coag (Bld) [Time] 35.5 s Normal 31.5-38.3 [facility] Comment on above: Order Comment: Speci men Type: BLOOD SPECIMENOrdering Facility: [facility] Address: [address] [place] [address] Result Comment: This test was developed, and its performance characteristics determined by the [facility] Department of Pathology and Laboratory Medicine. It has not been cleared or approved by the FDA. The [facility] Department of Pathology and Laboratory Medicine is regulated under CLIA as qualified to perform high-complexity testing. This test is used for clinical purposes. It should not be regarded as investigational or for research. Performed By: #### L UPPL, [id number] ####[facility] LABIA [id number] [place] [address] [place] aPTT Coag (Bld) [Time] 30.7 s Normal 24.0-35.1 [facility] Comment on above: Order Comment: Speci men Type: BLOOD SPECIMENOrdering Facility: [facility] Address: [address] [place] [address] Performed By: #### L UPPL, [id number] ####[facility] LABIA [id number] [place] [address] [place] aPTT W excess hexagonal phase phospholipid Coag (PPP) [Time] 44.6 seconds Normal 34.0-51.8 [facility] Comment on above: Order Comment: Speci men Type: BLOOD SPECIMENOrdering Facility: [facility] Address: [address] [place] [address] Performed By: #### L UPPL, [id number] ####[facility] LABIA [id number] [place] [address] [place] Delta dRVVT Coag (PPP) [Time diff] 3.1 delta seconds Normal <7.1 [facility] Comment on above: Order Comment: Speci men Type: BLOOD SPECIMENOrdering Facility: [facility] Address: [address] [place] [address] Performed By: #### L UPPL, [id number] ####[facility] LABCLIA [id number] [place] [address] [place] dRVVT Coag (PPP) [Time] 31.5 s Low 32.0-45.7 [facility] Comment on above: Order Comment: Speci men Type: BLOOD SPECIMENOrdering Facility: [facility] Address: [address] [place] [address] Performed By: #### L UPPL, [id number] ####[facility] LABIA [id number] [place] [address] [place] dRVVT factor substitution immediately after 1:2 addition of normal plasma Coag (PPP) [Time] 32.6 seconds Normal 32.0-45.7 [facility] Comment on above: Order Comment: Speci men Type: BLOOD SPECIMENOrdering Facility: [facility] Address: [address] [place] [address] Performed By: #### L UPPL, [id number] ####[facility] LABIA [id number] [place] [address] [place] dRVVT W excess hexagonal phase phospholipid actual/normal Coag (PPP) [Relative time] 41.5 seconds Normal 34.2-47.9 [facility] Comment on above: Order Comment: Speci men Type: BLOOD SPECIMENOrdering Facility: [facility] Address: [address] [place] [address] Performed By: #### L UPPL, [id number] ####[facility] LABIA [id number] [place] [address] [place] dRVVT/dRVVT.excess phospholipid Coag (PPP) [Ratio] 1.00 Normal <1.32 [facility] Comment on above: Order Comment: Speci men Type: BLOOD SPECIMENOrdering Facility: [facility] Address: [address] [place] [address] Performed By: #### L UPPL, [id number] ####[facility] LABCLIA [id number] [place] [address] [place] PLATELET NEUT 1.1 Seconds Normal <1.9 [facility] Comment on above: Order Comment: Garce jones Type: BLOOD SPECIMENOrdering Facility: [facility] Address: [address] [place] [address] Result Comment: This test was developed, and its performance characteristics determined by the [facility] Department of Pathology and Laboratory Medicine. It has not been cleared or approved by the FDA. The [facility] Department of Pathology and Laboratory Medicine is regulated under CLIA as qualified to perform high-complexity testing. This test is used for clinical purposes. It should not be regarded as investigational or for research. Performed By: #### L UPPL, [id number] ####[facility] LABCLIA [id number] [address] [place] Thrombin time Coag (PPP) [Time] 17.7 seconds Normal <18.6 [facility] Comment on above: Order Comment: Grace jones Type: BLOOD SPECIMENOrdering Facility: [facility] Address: [address] [place] [address] Performed By: #### L UPPL, [id number] ####[facility] LABCLIA [id number] [place] [address] [place] LUPUS PANEL INTERPon 024 Lupus anticoagulant (PPP) [Interp] Normal [facility] Comment on above: Order Comment: Grace jones Type: BLOOD SPECIMENOrdering Facility: [facility] Address: [address] [place] [address] Result Comment: No s ignificant abnormality - see comment below. Laboratory testing was performed to evaluate the presence of a lupus anticoagulant and antiphospholipid antibodies. The PT and APTT values are both within the normal range. A normal thrombin time (TT) and negative anti-Xa screen makes a heparin, anti-Xa drug and/or direct thrombin inhibitor effect unlikely. LUPUS ANTICOAGULANT STUDIES: There is no evidence for a lupus anticoagulant or other coagulation inhibitor at this time. A short DRVVT can be due to increased activation or lack of inactivation of coagulation factors within the common pathway. A limited thrombophilia panel is performed, see below. Recommend more thrombophilia testing if clinically indicated. A short DRVVT can be due to increased activation or lack of inactivation of coagulation factors within the common pathway. Recommend thrombophilia testing if clinically indicated. ANTIPHOSPHOLIPID ANTIBODY STUDIES: The IgG, IgM and IgA anticardiolipin antibody titers were all negative. Both the IgG and IgM Beta-2 Glycoprotein I antibody titers were negative. The criteria for the diagnosis of a Lupus Anticoagulant, as detailed by the Subcommittee on Lupus Anticoagulants and Antiphospholipid Antibodies of the Scientific and Standardization Committee of the International Society on Thrombosis and Haemostasis (ISTH), are the following: (1) A prolonged phospholipid-dependent clotting test (screening test); (2) Evidence for an inhibitor (1:1 mix of patient:normal plasma); (3) Evidence that the inhibitor is phospholipid dependent and (4) Exclusion of specific inhibitors (ie, fVIII inhibitors, direct thrombin inhibitors, or heparin). Thromb. Haemost. 74:1185 (1995). THE FOLLOWING TESTS WERE ADDED AND ARE REPORTED SEPARATELY: DRVVT, Hexagonal phase phospholipid neutralization and PNP. Corrected results: Previously reported on 05/16/2024 at 2:06 PM EST. Performed By: #### L UPPL, [id number] ####[facility] LABCLIA [id number] [place] [address] [place] Pathologist name Reviewed by Katrina Gray MD, PhD Normal [facility] Comment on above: Order Comment: Speci men Type: BLOOD SPECIMENOrdering Facility: [facility] Address: [address] [place] [address] Performed By: #### L UPPL, [id number] ####[facility] LABCLIA [id number] [place] [address] [place] PROTEIN C FUNCTon 05-11-2024 Protein C actual/normal Coag (PPP) [Relative time] 118 % Normal 76-147 [facility] Comment on above: Order Comment: Speci [facility] Type: BLOOD SPECIMENOrdering Facility: [facility] Address: [address] [place] [address] Performed By: #### 4 8591-2, PRCFUN ####[facility] LABCLIA [id number] [place] [address] [place] PROTEIN S CLOTTABLEon 2023 Protein S actual/normal Coag (PPP) [Relative time] 119 % Normal 59-152 [facility] Comment on above: Order Comment: Speci [facility] Type: BLOOD SPECIMENOrdering Facility: [facility] Address: [address] [place] [address] Performed By: #### P RSCLT ####[facility] LABCLIA [id number] [place] [address] [place] PROTHROMBIN GENE PCRon 05-11 PROTHROMBIN GENE MUTATION Normal [facility] Comment on above: Order [facility]: [facility] Type: BLOOD SPECIMENOrdering Facility: [facility] Address: [address] [place] [address] Result Comment: Prot hrombin Gene Mutation Laboratory Accession Number: [id number] Result: NORMAL Interpretation: The DNA sample is negative for the c.*97G>A variant (legacy name 32693Q>A) in the 3' untranslated region of the Factor II (F2) gene. This result is not associated with an increased risk of thromboembolic disease. Thromboembolic disease is a multifactorial disorder and other causes are not excluded by this result. Methodology: Isolated Genomic DNA from the patient's blood specimen is evaluated for the c*97G>A ([id number]) variant of the F2 gene [RefSeq NM_[id number];GRCh38/hg38] by multiplex polymerase chain reaction (PCR) followed by melting curve analysis. Limitations: This assay is designed to detect the c.*97G>A (33892N>A) variant in the F2 gene. Uncommon variants or single nucleotide polymorphisms may affect binding of probes and may rarely result in false negative, false positive or indeterminate results. This assay does not detect other disease-associated rare variants in F2 or other causes of thromboembolic disease. Disclaimer: This test was developed and its performance characteristics determined by [facility]'s Pathology and Laboratory Medicine Department. It has not been cleared or approved by the FDA. [facility]'s Pathology and Laboratory Medicine Department is regulated under CLIA as certified to perform high-complexity testing. This test is used for clinical purposes. It should not be regarded as investigational or for research. Testing and interpretation performed at [facility], [address] [place] [address]. CLIA Number: [id number] References: 1) Inheritied Thrombophilias in . ACOG Practice Bulletin. No. 197. [employer]. Obsete Gynecol 2018;132:e18-34. 2) Rm SR, Kelly FR, Gilda PH, and Gisell STANLEY. A common genetic variation in the 3'-untranslated region of the prothrombin gene is associated with elevated plasma prothrombin levels and an increase in venous thrombosis. Blood 88:3698-703, 1995. 3) Ovidio I, Puspha V, Felicia C, Sai K. Prothrombin 54490A>T: 16 new cases, association with the 13495C>G polymorphism, and literature review. J Thromb Haemost. 2009;9:1585-7. As reviewed by Rubia Rice, Ph.D. Performed By: #### P TGEN ####[facility] [id number] [place] [address] [place] PT panel Coag (PPP)on 2023 INR Coag (PPP) [Relative time] 1.0 {INR} Normal 0.9-1.3 [facility] Comment on above: Order Comment: Speci men Type: BLOOD SPECIMENOrdering Facility: [facility] Address: [address] [place] [address] Result Comment: Natividad min K Antagonist (VKA) Therapeutic Range: INR 2 to 3 (Target INR of 2.5) Note: For patients treated with VKA drugs, such as warfarin, the [employer] 2012 Guideline recommends a therapeutic INR range of 2 to 3 (target INR of 2.5). This recommendation includes high-risk patients with antiphospholipid syndrome with previous arterial or venous thromboembolism, current-generation mechanical or bioprosthetic aortic heart valve replacement. Note: Patients with mechanical aortic valve replacement and additional risk factors for thromboembolic events (atrial fibrillation, previous thromboembolism, LV dysfunction, hypercoagulable conditions) or an older generation mechanical AVR (i.e., ball in-Cage) or any mechanical MVR should have a INR therapeutic range of 2.5 to 3.5 (target INR of 3). Michelle GH, et al. Chest 2012, 141:7S-47S Sylvie RA, et al. [facility] 2017, 70: 252-289 Performed By: #### 3 4528-0, 04518-0 ####[facility] LABCLIA [id number] [place] [address] [place] PT Coag (PPP) [Time] 10.5 s Normal 9.7-13.0 [facility] Comment on above: Order Comment: Grace jones Type: BLOOD SPECIMENOrdering Facility: [facility] Address: [address] [place] [address] Performed By: #### 3 4528-0, 63233-2 ####[facility] LABIA [id number] [place] [address] [place] aPCR PPP-Impon 05-11-2024 Coagulation factor X activated act Coag Qn (PPP) <0.10 Normal <0.10 [facility] Comment on above: Order Comment: Grace jones Type: BLOOD SPECIMENOrdering Facility: [facility] Address: [address] [place] [address] Result Comment: This test was developed, and its performance characteristics determined by the [facility] Department of Pathology and Laboratory Medicine. It has not been cleared or approved by the FDA. The [facility] Department of Pathology and Laboratory Medicine is regulated under CLIA as qualified to perform high-complexity testing. This test is used for clinical purposes. It should not be regarded as investigational or for research. Performed By: #### 4 8591-2, PRCFUN ####[facility] LABIA [id number] Performed By: #### P RSCLT ####[facility] LABCLIA [id number] [address] Performed By: #### L UPPL, [id number] ####[facility] LABCLIA [id number] [address] aPTT PPPon 05-11-2024 aPTT Coag (PPP) [Time] 28.5 s Normal 23.0-32.4 [facility] Comment on above: Order Comment: Speci men Type: BLOOD SPECIMENOrdering Facility: [facility] Address: [address] [place] [address] Result Comment: Froz en Plasma Aliquot Performed By: #### 3 4528-0, 57387-6 ####[facility] LABCLIA [id number] [address] CNOVSPon 05-08-2024 CNOVSP Visit (SP) Office (HEMBATH) -------- CALLIE KENNEDY ([id number]) 1970 F CHT Date Time Provider Department 05/08/24 10:40 AM RUBÉN MERCADO During your visit today, we recorded the following information about you: Temperature Pulse Blood pressure Weight 98.8 degrees 87/minute 145/81 72.2 kg Height 1.676 m Rubén Mercado MD 06/24/2024 2:29 AM Signed Name: Callie Donahue Brent Date of : 1970 Date of Service: May 08, 2024 Reason for Consultation: History of pulmonary embolism during and family history of thrombosis- concern for hypercoagulable state. Consultation requested by Dr. Alia Parmar for an opinion regarding Callie Kennedy. My final recommendations will be communicated back to the requesting physician by way of shared Medical record or letter to requesting physician via US mail. History of Present Illness: Ms. Callie Kennedy is a 54 year old woman with Crohn's disease on risankizumab-rzaa (Skyrizi), history of endometriosis s/p hysterectomy in 2009, history of bilateral lower extremity DVT, as well as pulmonary embolism diagnosed during , s/p warfarin after delivery for approximately 6 months, who presents in consultation for suspected hypercoagulable state. The patient has no other history of thrombosis, though she did have two spontaneous abortions in early . Her family history is notable in DVT in her sister, who was placed on anticoagulation for a given period of time. She recalls that her sister tested positive for factor V Leiden, elevated MAI-I and lupus anticoagulant. Today, Callie reports feeling well. She denies dyspnea or lower extremity edema. She believes hypercoagulable testing is needed per GI prior to future endoscopies. 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 Had thoracic outlet decompression surgery on the right in 2017 PMH - PAST MEDICAL HISTORY OF right shoulder work injury, resolving with Physical Therapy and pain management Pulmonary embolism (HCC) 06/06/2001 sister has a clotting disorder but patient wasn't tested. This occured when she was on bedrest with twins developed bilateral DVT, then PE. Was on heparin until they were born (delivered at 30 weeks) was on an oral blood thinner for six months and then was taken off Regional enteritis of unspecified site Crohn disease Sleep apnea TOS (thoracic outlet syndrome) Ulcerative colitis (HCC) PAST SURGICAL HISTORY Procedure Laterality Date DELIVERY ONLY 02/27/2002 emergency section for 30wk gest twins COLONOSCOPY 02/08/2020 MINIMAL ACTIVE COLITIS descending colon, tortuous colon, int hemorrhoids EGD 06/01/2022 gastritis, Claudia-Arevalo tear, neg H Pylori EXC CYST/ABERRANT BREAST TISSUE OPEN 1/> LESION 04/25/2009 RIGHT with benign results EXC CYST/ABERRANT BREAST TISSUE OPEN 1/> LESION 04/25/2009 RIGHT with benign results EXCISE LYMPH NODE 04/25/2009 RIGHT with benign results LAPS ABD PRTMANDOMENTUM DX W/WO SPEC BR/WA SPX 05/12/2001 Dr. Jasso, Endo, stage 4 LAPS ABD PRTMANDOMENTUM DX W/WO SPEC BR/WA SPX 06/19/1999 Dr. Jasso, endometriosis LAPS ABD PRTMANDOMENTUM DX W/WO SPEC BR/WA SPX 1997 Dr. Moralez, [place], [place] She found endo (1st dx. of endo) LAPS ABD PRTMANDOMENTUM DX W/WO SPEC BR/WA SPX 08/07/2004 Dr. Jasso. Dx. L'scopy, RIGHT ovarian cystectomy, lysis of adhesions, rigid proctoscopy. (for RIGHT ovarian cyst, stage IV endometriosis LAPS ABD PRTMANDOMENTUM DX W/WO SPEC BR/WA SPX 05/12/2001 Dr. Hussain Jasso.OPERATION: Diagnostic laparoscopy, resection of bilateral endometriomas, and lysis of adhesions LAPS ABD PRTMANDOMENTUM DX W/WO SPEC BR/WA SPX 06/17/1999 Dr. Hussain Jasso. OPERATION: Laparoscopic excision of endometriosis. LAPS ABD PRTMANDOMENTUM DX W/WO SPEC BR/WA SPX 06/17/1999 Dr. Payton OPERATION: Excision of rectal endometriosis, mobilization of the rectum and rigid sigmoidoscopy. ORTHOPEDICS SURGERY HX Right 12/13/2018 artoroscopic rt shoulder PAST SURGICAL HISTORY OF age 4 umbillical hernia PAST SURGICAL HISTORY OF breast cysts x3 surgeries PAST SURGICAL HISTORY OF 12/2006 TRIGGER FINGER RELEASE RIGHT HAND PECTORALIS MINOR TENDON RELEASE (COMP CODE 75809) Right RIB RESECTION TOTAL Right SHOULDER ARTHRO (more content not included)... Normal [facility] CBC W Auto Differential pane l (Bld)on 04-17-2024 Basophils (Bld) [#/Vol] 0.05 10*3/uL Normal <0.11 [facility] Comment on above: Order Comment: Speci men Type: BLOOD SPECIMEN [facility] Address: [address] [place] [address] Performed By: #### 5 7021-8 #### [facility] CLIA [id number] [address] [place] Basophils/100 WBC (Bld) 0.8 % Normal [facility] Comment on above: Order Comment: Speci men Type: BLOOD SPECIMEN [facility] Address: [address] [place] [address] Performed By: #### 5 7021-8 #### [facility] CLIA [id number] [address] Differential cell count method Nom (Bld) Auto Normal [facility] Comment on above: Order Comment: Speci men Type: BLOOD SPECIMEN [facility] Address: [address] [place] [address] Performed By: #### 5 7021-8 #### [facility] CLIA [id number] [address] [place] [address] [place] Eosinophils (Bld) [#/Vol] 0.04 10*3/uL Normal <0.46 [facility] Comment on above: Order Comment: Speci men Type: BLOOD SPECIMEN [facility] Address: [address] [place] [address] Performed By: #### 5 7021-8 #### [facility] CLIA [id number] [address] Eosinophils/100 WBC (Bld) 0.7 % Normal [facility] Comment on above: Order Comment: Speci men Type: BLOOD SPECIMEN [facility] Address: [address] [place] [address] Performed By: #### 5 7021-8 #### [facility] CLIA [id number] [address] [place] Erythrocyte distribution width (RBC) [Ratio] 12.4 % Normal 11.5-15.0 [facility] Comment on above: Order Comment: Speci men Type: BLOOD SPECIMEN [facility] Address: [facility] [place] [address] Performed By: #### 5 7021-8 #### [facility] CLIA [id number] [address] Hematocrit (Bld) [Volume fraction] 37.0 % Normal 36.0-46.0 [facility] Comment on above: Order Comment: Speci men Type: BLOOD SPECIMEN [facility] Address: [address] [place] [address] Performed By: #### 5 7021-8 #### [facility] CLIA [id number] [address] [place] Hemoglobin (Bld) [Mass/Vol] 12.4 g/dL Normal 11.5-15.5 [facility] Comment on above: Order Comment: Speci men Type: BLOOD SPECIMEN [facility] Address: [address] [place] [address] Performed By: #### 5 7021-8 #### [facility] CLIA [id number] [address] [place] Immature granulocytes (Bld) [#/Vol] 10*3/uL Normal <0.10 [facility] Comment on above: Order Comment: Speci men Type: BLOOD SPECIMEN [facility] Address: [address] [place] [address] Performed By: #### 5 7021-8 #### [facility] CLIA [id number] [address] Immature granulocytes/100 WBC (Bld) 0.2 % Normal [facility] Comment on above: Order Comment: Speci men Type: BLOOD SPECIMEN [facility] Address: [address] [place] [address] Performed By: #### 5 7021-8 #### [facility] CLIA [id number] [address] [place] Lymphocytes (Bld) [#/Vol] 2.12 10*3/uL Normal 1.00-4.00 [facility] Comment on above: Order Comment: Speci men Type: BLOOD SPECIMEN [facility] Address: [address] [place] [address] Performed By: #### 5 7021-8 #### [facility] CLIA [id number] [address] Lymphocytes/100 WBC (Bld) 35.6 % Normal [facility] Comment on above: Order Comment: Speci men Type: BLOOD SPECIMEN [facility] Address: [address] [place] [address] Performed By: #### 5 7021-8 #### [facility] CLIA [id number] [address] MCH (RBC) [Entitic mass] 29.7 pg Normal 26.0-34.0 [facility] Comment on above: Order Comment: Speci men Type: BLOOD SPECIMEN [facility] Address: [address] [place] [address] Performed By: #### 5 7021-8 #### [facility] CLIA [id number] [address] MCHC (RBC) [Mass/Vol] 33.5 g/dL Normal 30.5-36.0 [facility] Comment on above: Order Comment: Speci men Type: BLOOD SPECIMEN [facility] Address: [address] [place] [address] Performed By: #### 5 7021-8 #### [facility] CLIA [id number] [address] MCV (RBC) [Entitic vol] 88.7 fL Normal 80.0-100.0 [facility] Comment on above: Order Comment: Speci men Type: BLOOD SPECIMEN [facility] Address: [address] [place] [address] Performed By: #### 5 7021-8 #### [facility] CLIA [id number] [address] Monocytes (Bld) [#/Vol] 0.43 10*3/uL Normal <0.87 [facility] Comment on above: Order Comment: Speci men Type: BLOOD SPECIMEN [facility] Address: [address] [place] [address] Performed By: #### 5 7021-8 #### [facility] CLIA [id number] [address] [place] Monocytes/100 WBC (Bld) 7.2 % Normal [facility] Comment on above: Order Comment: Speci men Type: BLOOD SPECIMEN [facility] Address: [address] [place] [address] Performed By: #### 5 7021-8 #### [facility] CLIA [id number] [address] [place] Neutrophils (Bld) [#/Vol] 3.30 10*3/uL Normal 1.45-7.50 [facility] Comment on above: Order Comment: Speci men Type: BLOOD SPECIMEN [facility] Address: [address] [place] [address] Performed By: #### 5 7021-8 #### [facility] CLIA [id number] [address] [place] Neutrophils/100 WBC (Bld) 55.5 % Normal [facility] Comment on above: Order Comment: Speci men Type: BLOOD SPECIMEN [facility] Address: [address] [place] [address] Performed By: #### 5 7021-8 #### [facility] CLIA [id number] [address] [place] Nucleated RBC (Bld) [#/Vol] 10*3/uL Normal <0.01 [facility] Comment on above: Order Comment: Speci men Type: BLOOD SPECIMEN [facility] Address: [address] [place] [address] Performed By: #### 5 7021-8 #### [facility] CLIA [id number] [address] [place] Nucleated RBC/100 WBC (Bld) [Ratio] 0.0 /100 WBC Normal [facility] Comment on above: Order Comment: Speci men Type: BLOOD SPECIMEN [facility] Address: [address] [place] [address] Performed By: #### 5 7021-8 #### [facility] CLIA [id number] [address] [place] Platelet mean volume (Bld) [Entitic vol] 10.2 fL Normal 9.0-12.7 [facility] Comment on above: Order Comment: Speci men Type: BLOOD SPECIMEN [facility]ing Facility: [facility] Address: [address] [place] [address] Performed By: #### 5 7021-8 #### [facility] CLIA [id number] [address] [place] Platelets (Bld) [#/Vol] 309 10*3/uL Normal 150-400 [facility] Comment on above: Order Comment: Speci men Type: BLOOD SPECIMEN Ordering Facility: [facility] Address: [address] [place] [address] Performed By: #### 5 7021-8 #### [facility] CLIA [id number] [address] [place] [address] [place] RBC (Bld) [#/Vol] 4.17 10*6/uL Normal 3.90-5.20 [facility] Comment on above: Order Comment: Speci men Type: BLOOD SPECIMEN [facility]ing Facility: [facility] Address: [address] [place] [address] Performed By: #### 5 7021-8 #### [facility] CLIA [id number] [address] [place] [address] [place] WBC (Bld) [#/Vol] 5.95 10*3/uL Normal 3.70-11.00 [facility] Comment on above: Order Comment: Speci men Type: BLOOD SPECIMEN [facility]ing Facility: [facility] Address: [address] [place] [address] Performed By: #### 5 7021-8 #### [facility] CLIA [id number] [address] [place] [address] [place] CRP SerPl-mCncon 04-17-2024 CRP [Mass/Vol] mg/L Normal <0.9 [facility] Comment on above: Order Comment: Speci men Type: BLOOD SPECIMEN Ordering Facility: [facility] Address: [address] [place] [address] Performed By: #### 1 988-5 #### [facility] CLIA [id number] [address] [place] [address] [facility] CNPNon 04-09-2024 CNPN Telephone (GSTNOR) -------- CALLIE KENNEDY ([id number]) 1970 F CHT Date Time Provider Department 04/09/24 ALIA PARMAR GSTNOR During your visit today, we recorded the following information about you: Cielo Roldan MA 04/09/2024 9:39 AM Signed Patient call, had her first Skyrizi infusion on 03/23. A few days later, she noted some loss of appetite, slight nausea after eating and headaches, has not yet resolved. Questioning, is this adjusting to the new medication, or anything to be concerned about? No rash, no fever, no rectal bleeding, just her "normal" abd cramping intermittently. Cielo Roldan PIG CASTER [facility] Alia Parmar MD 04/09/2024 11:18 AM Signed This would not be typical for Skyrizi. Headache can occur in 4-7% of patients but nausea and loss of appetite are not typical. I have ordered for her to have blood work the week on 04/16/2024. She should obtain a few days before she gets the next infusion of skyrizi on 04/20/2024 Cielo Roldan MA 04/09/2024 11:52 AM Signed Spoke with patient Cielo Roldan CMA Allergies As of Date: 04/09/2024 Noted Allergy Reaction HYDROQUINONE 09/23/2022 10 - Anaphylaxis CODEINE 10/15/2003 8 - GI Upset GADOTERATE MEGLUMINE 10/24/2023 16 - Unknown HUMIRA (ADALIMUMAB) 11/19/2022 4 - Hives STELARA (USTEKINUMAB) 11/19/2022 12 - Shortness of Breath Date Reviewed: 03/23/2024 Reviewed by: Apolonia Carrera RN - Fully Assessed Reason for Visit: Patient Update [1234] Primary Visit Diagnosis:Crohn's disease of large intestine without complication (HCC) [K50.10] Order(s):COMPLETE BLOOD COUNT AND DIFFERENTIAL [SQCBCDIF] Order #: [id number] FUTURE COMPREHENSIVE METABOLIC PANEL [SQCMP] Order #: [id number] FUTURE C-REACTIVE PROTEIN [SQCRP] Order #: [id number] FUTURE Prescriptions as of 04/09/2024 - baclofen 10 mg tablet Take 10 mg by mouth three times a day. - polyethylene glycol 3350 17 gram packet Take 17 g by mouth once daily. - iv contrast (will be provided with radiology test) CT Enterography W Inject, intravenously, once for 1 dose.No IV access, insert saline lock prior to the beginning of sedation, infusion, injection of imaging exam. Discontinue saline lock post exam. If Pt. has a central line or IVAD, may access for administration according to line specific nursing protocol. Once exam is complete flush line and de-access according to line specific nursing protocol in the CT contrast administration guidelines link. - enteric contrast (will be provided with radiology test) For CT ENTEROGRAPHY W IVCON order Administer, As Directed One Time Only, via Oral, Rectal, both Oral and Rectal, Enteric Tube, Stoma or Indwelling Catheter,? Enteric Contrast as designated per enteric contrast guidelines. - traZODone (DESYREL) 100 mg tablet Take 100 mg by mouth at bedtime as needed. For Insomnia - venlafaxine ER (EFFEXOR XR) 75 mg 24 hr capsule Take 75 mg by mouth once daily. - montelukast (SINGULAIR) 10 mg tablet Take 1 tablet by mouth once daily. - albuterol HFA (PROVENTIL HFA, VENTOLIN HFA) 90 mcg/actuation inhaler Inhale 2 Puffs as instructed every 6 hours. Problem List As Of Date 04/09/2024 Noted Resolved Lump or mass in breast [N63.0] 02/20/2007 02/07/2018 Multinodular goiter [E04.2] 05/26/2010 Right lower quadrant abdominal pain [R10.31] 01/31/2016 02/07/2018 Endometriosis [N80.9] 02/13/2016 02/07/2018 Pelvic adhesions [N73.6] 02/13/2016 02/07/2018 Colitis [K52.9] 02/07/2020 Severe protein-calorie malnutrition (HCC) [E43] 02/07/2020 Personal history of nicotine dependence [Z87.89*12/23/2016 Irritable bowel syndrome [K58.9] 02/24/2021 Pectoralis minor syndrome (HCC) [I77.89] 02/24/2021 Pulmonary embolism (HCC) [I26.99] 06/06/2001 Atypical chest pain [R07.89] 09/23/2022 Crohn's disease of large intestine without comp*02/13/2024 Encounter Status:Closed by ALIA PARMAR on 04/09/24 Normal [facility] Fluoro Guided Needle Placeme nton 03-26-2024 Fluoro Guided Needle Placement [facility] Imaging Services [address] [place] [address] Fluoro Guided Needle Placement MR#: [id number] Acct: [id number] Name: CALLIE KENNEDY Rep #: [id number] : 1970 F 53 From: Kana lord DO PCP: Milana Grace DO Status: [facility] Study: Fluoro Guided Needle Placement Date of Exam: 1 Exam# [id number] Ordering Dr: Juaquin Rod MD 2003:[id number] EXAM: FL FLUOROSCOPY < 1 HOUR CLINICAL INDICATION: SHOULDER INJECTION TECHNIQUE: Fluoroscopic images performed in multiple projections. Fluoroscopic guidance was provided by a physician. Fluoroscopic time is 6.4 seconds and the cumulative dose is 0.25 mGy. COMPARISON: No relevant prior studies available. FINDINGS AND RAD/Fluoro Guided Needle Placement IMPRESSION: 2 images for intra-articular injection. Refer to the procedure note for complete details. Electronically Signed: Kana Bullock DO at 23:12 EDT , CC: Dr. Juaquin Rod MD; Milana Grace DO Company Secretary: Signed [facility] MR/POSTOP.ANE 03-26-2024 MR/POSTOP.[facility] Medical Records Department [address] [place] [address] Anesthesia Postop Eval I 03/26/24 1104 MR#: [id number] Acct: [id number] Name: CALLIE KENNEDY Rep #: [id number] : 1970 53 From: Cecelia Mckenzie PCP: Milana Grace DO Status:REG SD Y Race: C Location: [place] [address] Anesthesia: Postop Eval I Current Vital Signs Temperature: 98.3 F Pulse Rate: 78 Blood Pressure: 125/74 Respiratory Rate: 16 Pulse Ox: 98 Oxygen Delivery Method: Room Air Assessment Airway patent: Yes Spontaneous unlabored respirations: Yes Mental status: Awake and Calm nausea: No Vomiting: No Anesthesia Complication: No Fluid Hydration Crystalloid volume administer (ml): 20 Total IV fluid infused: 20 Progress Note Anesthesia document: Postop Eval 1 completed: Yes 03/26/24 1105 Date Cecelia Hassanignphong Signature: Date CC: Signed [facility] [id number] 03-26-2024 MR/POSTOPAN2 [facility] Medical Records Department [address] [place] [address] Anesthesia Postop Eval II 03/26/24 1244 MR#: [id number] Acct: [id number] Name: CALLIE KENNEDY Rep #: [id number] : 1970 53 From: Tu Cevallos MD PCP: Milana Grace DO Status:[facility] Y Race: C Location: [facility] Anesthesia Postop Eval I Sum Postop Eval Completion status Anesthesia document: Postop Eval 1 completed: Yes Anesthesia Postop Eval I Summary Anesthesia Postop Eval I Summary: Anesthesia Postop Eval I: Assessment Summary Airway patent Yes 03/26/24 11:05 [email or web address] Spontaneous unlabored Yes 03/26/24 11:05 [email or web address] respirations Mental status Awake,Calm 03/26/24 11:05 [email or web address] nausea No 03/26/24 11:05 [email or web address] Vomiting No 03/26/24 11:05 [email or web address] Anesthesia Postop Eval I: Fluid Summary Crystalloid volume administer 20 03/26/24 11:05 [email or web address] (ml) Colloids volume administered ( ml) Blood Product volume administered (ml) Total IV fluid infused 20 03/26/24 11:05 [email or web address] Anesthesia Postop Eval I: Summary Notes Anesthesia Complication No 03/26/24 11:05 [email or web address] Anesthesia Complication Comment: Post-operative progress note Anesthesia: Postop Eval II Evaluation Mental status: Awake Pain Level: 0 nausea: No Vomiting: No 03/26/24 1244 Date Tu Cevallos MD Cosigner Signature: Date CC: Signed Normal [facility] Operative Reporton 4 Operative Report [facility] Medical Records Department [address] [facility] [place] [address] Operative Report 03/26/24 1138 MR#: [id number] Acct: [id number] Name: CALLIE KENNEDY Rep #: [id number] : 1970 53 From: Juaquin Rod MD PCP: Milana Grace DO Status:[facility] Location: [facility] Report of Operation Date of Procedure: 03/26/24 Description of Surgical Findings:: PREOPERATIVE DIAGNOSIS: Right shoulder rotator cuff injury. POSTOPERATIVE DIAGNOSIS: Right shoulder rotator cuff injury PROCEDURE PERFORMED: Right shoulder intra-articular steroid injection under fluoroscopic guidance. ANESTHESIA: MAC. BLOOD LOSS: Minimal. COMPLICATIONS: None. DESCRIPTION OF PROCEDURE: History and physical of today was reviewed. Risks and benefits of the procedure were explained. The patient understood and agreed to proceed. Informed consent was obtained. IV inserted per routine protocol. The patient was taken to the operating room and placed in the supine position. The right shoulder area was prepped and draped in a sterile fashion using iodine x3. Under fluoroscopic guidance on AP view, the right shoulder joint was visualized. The skin and subcutaneous tissue was anesthetized with approximately 1 mL of 1% lidocaine using a 25- gauge regular needle at the anterior shoulder joint area. Under direct visualization with fluoroscopy on AP view, using a 22-gauge 3-1/2-inch spinal needle, the needle was advanced via the skin directed towards the intraarticular position at the supraspinatus level. Once the tip of the needle was at the vicinity of the shoulder joint, after negative aspiration for blood, positive aspiration for synovial fluid, a total of 1 mL of contrast was injected to confirm correct placement of the needle as well as anterior and posterior spread of the contrast at the shoulder joint and the subacromial bursa. Halo spread as well was visualized through the arthrogram. After confirmation on AP as well as oblique view and repeated negative aspiration for blood, a total of 4 mL of preservative-free 0.25% Marcaine with 40 mg of Depo-Medrol was injected easily. The needle was then removed intact. The patient experienced no sign or symptoms of intravascular injection. The patient experienced no paresthesia. The procedure was completed without any apparent difficulty or any complications. The patient appeared to tolerate it well. Assessment and plan: This is a 53-year-old female with right shoulder rotator cuff injury status post right shoulder intra-articular steroid injection under fluoroscopic guidance, patient will continue her current medications, patient will follow approximately 2 weeks for reevaluation. 03/26/24 1138 Cosigner Signature (if applicable): CC: Dr. Juaquin Rod MD; Milana Grace DO Signed Normal [facility] No Panel InformationOrdered By: Raad Gutierrez on 03-25-2024 Interpretation and review of laboratory results Normal [facility] POC Strep DNA Probe Negative Negative [facility] Office Visiton 03-25-2024 Follow-up visit [id number] Callie Kennedy 1970 F Date Provider Department Center 03/25/2024 [id number], [facility] None Family History Problem Relation Age of Onset Heart disease Father Arthritis Mother Heart disease Mother Family Status - Relation Status Age at Father Alive Mother Alive Level of Service:80169 [place] OFFICE/OUTPATIENT ESTABLISHED LOW MDM 20 MIN Reason for Visit and Comments: Sore Throat [82] - Hurts to swollen,Cough, Headache, x 3 days. Pt state she would like to have Strep test done today. Normal [facility] Progress Noteon 03-25-2024 Progress Note [facility] [address] [facility] [address] Dept: [phone] Dept Loc: [phone] Subjective Chief Complaint Patient presents with Sore Throat Hurts to swollen,Cough, Headache, x 3 days. Pt state she would like to have Strep test done today. Subjective HPI Chicag[place]odfrey Kennedy is a 53 y.o. year old female who presents with a sore throat and headache x 3 days. Denies any cough, congestion, or drainage. Denies fever, chest pain, shortness of breath, wheezing, abdominal pain, or nausea/vomiting/diarrhea . Has been taking Aleve cold/sinus. Requesting strep test today. Review of Systems Allergies Allergen Reactions Alera [Hydroquinone] Anaphylaxis Cortisone Shortness of breath Steroid injection in neck from pain management. Trouble breathing, body turned bright red. Gave her IV medication. [facility] [place], [place] Codeine Nausea Only, Other and Hives vomiting Current Outpatient Medications on File Prior to Visit Medication Sig Dispense Refill albuterol 108 (90 Base) MCG/ACT inhaler Inhale 2 puffs 4 times daily as needed. Lactobacillus Rhamnosus, GG, ( Probiotic Digestive Care) capsule Take 1 capsule by mouth in the morning. montelukast (Singulair) 10 MG tablet Take 10 mg by mouth daily. traZODone (Desyrel) 100 MG tablet Take 100 mg by mouth Nightly as needed. venlafaxine XR (Effexor XR) 75 MG 24 hr capsule Take 75 mg by mouth daily. [DISCONTINUED] fluticasone (Flonase) 50 MCG/ACT nasal spray Administer 1 spray into each nostril daily. pantoprazole (ProtoNix) 40 MG EC tablet Take 1 tablet (40 mg) by mouth every morning (before breakfast). Do not crush, chew, or split. Do not start before June 04, 2022. 30 tablet 0 No current facility-administered medications on file prior to visit. Patient Active Problem List Diagnosis Pneumonia due to COVID-19 virus Superior glenoid labrum lesion of right shoulder Adhesive capsulitis of right shoulder Other instability, right shoulder Colitis Social History Tobacco Use Smoking status: Former Smokeless tobacco: Never Substance Use Topics Alcohol use: Not Currently Objective Objective BP 132/77 (BP Location: Right arm, Patient Position: Sitting, BP Cuff Size: Adult) Pulse 97 Temp 36.6 ?C (97.9 ?F) (Infrared) Ht 5' 6" (1.676 m) Wt 156 lb (70.8 kg) SpO2 99% BMI 25.18 kg/m? Physical Exam Vitals reviewed. Constitutional: General: She is not in acute distress. Appearance: Normal appearance. She is not ill-appearing, toxic-appearing or diaphoretic. HENT: Head: Normocephalic. Right Ear: Tympanic membrane, ear canal and external ear normal. Left Ear: Tympanic membrane, ear canal and external ear normal. Nose: Nose normal. Mouth/Throat: Mouth: Mucous membranes are moist. Tongue: Tongue does not deviate from midline. Pharynx: Oropharynx is clear. Uvula midline. Posterior oropharyngeal erythema (mild) present. No pharyngeal swelling, oropharyngeal exudate or uvula swelling. Tonsils: No tonsillar exudate or tonsillar abscesses. 0 on the right. 0 on the left. Cardiovascular: Rate and Rhythm: Normal rate and regular rhythm. Pulmonary: Effort: Pulmonary effort is normal. Breath sounds: Normal breath sounds. Musculoskeletal: Cervical back: Normal range of motion and neck supple. Lymphadenopathy: Cervical: Cervical adenopathy present. Skin: General: Skin is warm and dry. Neurological: Mental Status: She is alert and oriented to person, place, and time. Psychiatric: Mood and Affect: Mood normal. Behavior: Behavior normal. Assessment/Plan 1. Viral pharyngitis - fluticasone (Flonase) 50 MCG/ACT nasal spray; Administer 1 spray into each nostril daily. Shake gently. Before first use, prime pump. After use, clean tip and replace cap., Starting 03/25/2024, Until 03/25/2025, Normal - dexAMETHasone (Decadron) injection 10 mg; 10 mg, Oral, Once, On 03/25/24 at 1215, For 1 dose 2. Sore throat - AMB POC STREP GO A DIRECT, DNA PROBE Rapid strep is negative. Offered additional testing including COVID and influenza, patient declines. Likely viral pharyngitis. Patient is nontoxic, breathing easy and even. No evidence of [employer] or other deep neck infection. Will start on Flonase as well as give a dose of Decadron orally in clinic today to help with throat pain. Advised to increase fluids and rotate Tylenol and ibuprofen for additional pain/fever relief. Symptoms fail to improve in the next 5 to 7 days, follow-up with PCP. ER for any sudden/severe worsening of symptoms. Patient agreeable with plan, left in stable condition. Ria Wayne, JONNIE - MELBA 03/25/2024 12:31 PM Normal [facility] CBC W Auto Differential pane l (Bld)on 03-23-2024 Basophils (Bld) [#/Vol] 0.04 10*3/uL [facility] Basophils/100 WBC (Bld) 0.5 % [facility] Differential cell count method Nom (Bld) Auto [facility] Eosinophils (Bld) [#/Vol] 0.03 10*3/uL [facility] Eosinophils/100 WBC (Bld) 0.4 % [facility] Erythrocyte distribution width (RBC) [Ratio] 12.1 % 11.5 - 15.0 % [facility] Hematocrit (Bld) [Volume fraction] 39.1 % 36.0 - 46.0 % [facility] Hemoglobin (Bld) [Mass/Vol] 13.1 g/dL 11.5 - 15.5 g/dL [facility] Immature granulocytes (Bld) [#/Vol] 0.03 10*3/uL [facility] Immature granulocytes/100 WBC (Bld) 0.4 % [facility] Lymphocytes (Bld) [#/Vol] 1.83 10*3/uL [facility] Lymphocytes/100 WBC (Bld) 23.3 % [facility] MCH (RBC) [Entitic mass] 30.1 pg 26.0 - 34.0 pg [facility] MCHC (RBC) [Mass/Vol] 33.5 g/dL 30.5 - 36.0 g/dL [facility] MCV (RBC) [Entitic vol] 89.9 fL 80.0 - 100.0 fL [facility] Monocytes (Bld) [#/Vol] 0.52 10*3/uL [facility] Monocytes/100 WBC (Bld) 6.6 % [facility] Neutrophils (Bld) [#/Vol] 5.39 10*3/uL [facility] Neutrophils/100 WBC (Bld) 68.8 % [facility] Nucleated RBC (Bld) [#/Vol] [facility] Nucleated RBC/100 WBC (Bld) [Ratio] 0.0 % /100 WBC [facility] Platelet mean volume (Bld) [Entitic vol] 10.8 fL 9.0 - 12.7 fL [facility] Platelets (Bld) [#/Vol] 331 10*3/uL [facility] RBC (Bld) [#/Vol] 4.35 10*6/uL 3.90 - 5.2 0 m/uL [facility] WBC (Bld) [#/Vol] 7.84 10*3/uL [facility] Basophils (Bld) [#/Vol] 0.04 10*3/uL Normal <0.11 [facility] Comment on above: Order Comment: Speci men Type: BLOOD SPECIMENOrdering Facility: [facility] Address: [address] [place] [address] Performed By: #### 5 7021-8 ####[facility] [id number] [address] STATES [facility] Basophils/100 WBC (Bld) 0.5 % Normal [facility] Comment on above: Order Comment: Speci men Type: BLOOD SPECIMENOrdering Facility: [facility] Address: [address] [place] [address] Performed By: #### 5 7021-8 ####[facility]ORY[facility]IA [id number] [address] Differential cell count method Nom (Bld) Auto Normal [facility] Comment on above: Order Comment: Speci men Type: BLOOD SPECIMENOrdering Facility: [facility] Address: [address] [place] [address] Performed By: #### 5 7021-8 ####[facility]ORYCLIA [id number] [address] [place] Eosinophils (Bld) [#/Vol] 0.03 10*3/uL Normal <0.46 [facility] Comment on above: Order Comment: Speci men Type: BLOOD SPECIMENOrdering Facility: [facility] Address: [address] [place] [address] Performed By: #### 5 7021-8 ####[facility]ORYCLIA [id number] [address] Eosinophils/100 WBC (Bld) 0.4 % Normal [facility] Comment on above: Order Comment: Speci men Type: BLOOD SPECIMENOrdering Facility: [facility] Address: [address] [place] [address] Performed By: #### 5 7021-8 ####[facility] [id number] [address] [place] Erythrocyte distribution width (RBC) [Ratio] 12.1 % Normal 11.5-15.0 [facility] Comment on above: Order Comment: Speci men Type: BLOOD SPECIMENOrdering Facility: [facility] Address: [address] [place] [address] Performed By: #### 5 7021-8 ####[facility] [id number] [address] [place] Hematocrit (Bld) [Volume fraction] 39.1 % Normal 36.0-46.0 [facility] Comment on above: Order Comment: Speci men Type: BLOOD SPECIMENOrdering Facility: [facility] Address: [address] [place] [address] Performed By: #### 5 7021-8 ####[facility]ORATORYCLIA [id number] [place] [address] [place] Hemoglobin (Bld) [Mass/Vol] 13.1 g/dL Normal 11.5-15.5 [facility] Comment on above: Order Comment: Speci men Type: BLOOD SPECIMENOrdering Facility: [facility] Address: [address] [place] [address] Performed By: #### 5 7021-8 ####[facility]ORYCLIA [id number] [address] [place] Immature granulocytes (Bld) [#/Vol] 0.03 10*3/uL Normal <0.10 [facility] Comment on above: Order Comment: Speci men Type: BLOOD SPECIMENOrdering Facility: [facility] Address: [address] [place] [address] Performed By: #### 5 7021-8 ####[facility]ORYCLIA [id number] [address] [place] Immature granulocytes/100 WBC (Bld) 0.4 % Normal [facility] Comment on above: Order Comment: Speci men Type: BLOOD SPECIMENOrdering Facility: [facility] Address: [address] [place] [address] Performed By: #### 5 7021-8 ####[facility]ORATORYCLIA [id number] [place] [address] [place] Lymphocytes (Bld) [#/Vol] 1.83 10*3/uL Normal 1.00-4.00 [facility] Comment on above: Order Comment: Speci men Type: BLOOD SPECIMENOrdering Facility: [facility] Address: [address] [place] [address] Performed By: #### 5 7021-8 ####[facility]ORATORYCLIA [id number] [address] STATES [facility] Lymphocytes/100 WBC (Bld) 23.3 % Normal [facility] Comment on above: Order Comment: Speci men Type: BLOOD SPECIMENOrdering Facility: [facility] Address: [address] [place] [address] Performed By: #### 5 7021-8 ####[facility]ATORYCLIA [id number] [address] [place] MCH (RBC) [Entitic mass] 30.1 pg Normal 26.0-34.0 [facility] Comment on above: Order Comment: Speci men Type: BLOOD SPECIMENOrdering Facility: [facility] Address: [address] [place] [address] Performed By: #### 5 7021-8 ####[facility] LABORATORYCLIA [id number] [address] STATES OF [facility] MCHC (RBC) [Mass/Vol] 33.5 g/dL Normal 30.5-36.0 [facility] Comment on above: Order Comment: Speci men Type: BLOOD SPECIMENOrdering Facility: [facility] Address: [address] [place] [address] Performed By: #### 5 7021-8 ####[facility] LABORATORYCLIA [id number] [address] [place] MCV (RBC) [Entitic vol] 89.9 fL Normal 80.0-100.0 [facility] Comment on above: Order Comment: Speci men Type: BLOOD SPECIMENOrdering Facility: [facility] Address: [address] [place] [address] Performed By: #### 5 7021-8 ####[facility] LABORATORYCLIA [id number] [address] [place] Monocytes (Bld) [#/Vol] 0.52 10*3/uL Normal <0.87 [facility] Comment on above: Order Comment: Speci men Type: BLOOD SPECIMENOrdering Facility: [facility] Address: [address] [place] [address] Performed By: #### 5 7021-8 ####[facility] LABORATORYCLIA [id number] [place] [address] [place] Monocytes/100 WBC (Bld) 6.6 % Normal [facility] Comment on above: Order Comment: Speci men Type: BLOOD SPECIMENOrdering Facility: [facility] Address: [address] [place] [address] Performed By: #### 5 7021-8 ####[facility] LABORATORYCLIA [id number] [address] [place] Neutrophils (Bld) [#/Vol] 5.39 10*3/uL Normal 1.45-7.50 [facility] Comment on above: Order Comment: Speci men Type: BLOOD SPECIMENOrdering Facility: [facility] Address: [address] [place] [address] Performed By: #### 5 7021-8 ####[facility] LABORATORYCLIA [id number] [address] [place] Neutrophils/100 WBC (Bld) 68.8 % Normal [facility] Comment on above: Order Comment: Speci men Type: BLOOD SPECIMENOrdering Facility: [facility] Address: [address] [place] [address] Performed By: #### 5 7021-8 ####[facility] LABORATORYCLIA [id number] [place] [address] [place] Nucleated RBC (Bld) [#/Vol] 10*3/uL Normal <0.01 [facility] Comment on above: Order Comment: Speci men Type: BLOOD SPECIMENOrdering Facility: [facility] Address: [address] [place] [address] Performed By: #### 5 7021-8 ####[facility] LABORATORYCLIA [id number] [place] [address] [place] Nucleated RBC/100 WBC (Bld) [Ratio] 0.0 /100 WBC Normal [facility] Comment on above: Order Comment: Speci men Type: BLOOD SPECIMENOrdering Facility: [facility] Address: [address] [place] [address] Performed By: #### 5 7021-8 ####[facility] LABORATORYCLIA [id number] [place] [address] [place] Platelet mean volume (Bld) [Entitic vol] 10.8 fL Normal 9.0-12.7 [facility] Comment on above: Order Comment: Speci men Type: BLOOD SPECIMENOrdering Facility: [facility] Address: [address] [place] [address] Performed By: #### 5 7021-8 ####[facility] LABORATORYCLIA [id number] [place] [address] [place] Platelets (Bld) [#/Vol] 331 10*3/uL Normal 150-400 [facility] Comment on above: Order Comment: Speci men Type: BLOOD SPECIMENOrdering Facility: [facility] Address: [address] [place] [address] Performed By: #### 5 7021-8 ####[facility] LABORATORYCLIA [id number] [place] [address] [place] RBC (Bld) [#/Vol] 4.35 10*6/uL Normal 3.90-5.20 [facility] Comment on above: Order Comment: Speci men Type: BLOOD SPECIMENOrdering Facility: [facility] Address: [address] [place] [address] Performed By: #### 5 7021-8 ####[facility] LABORATORYCLIA [id number] [place] [address] [place] WBC (Bld) [#/Vol] 7.84 10*3/uL Normal 3.70-11.00 [facility] Comment on above: Order Comment: Speci men Type: BLOOD SPECIMENOrdering Facility: [facility] Address: [address] [place] [address] Performed By: #### 5 7021-8 ####[facility] LABORATORYCLIA [id number] [place] [address] [place] CRP SerPl-mCncon 03-23-2024 CRP [Mass/Vol] mg/L Normal <0.9 [facility] Comment on above: Order Comment: Speci men Type: BLOOD SPECIMENOrdering Facility: [facility] Address: [address] [place] [address] Performed By: #### 2 43208-11, 1987-10 ####[facility] LABORATORYCLIA [id number] [place] [address] [facility] Comprehensive metabolic 2000 panelon 03-23-2024 Albumin [Mass/Vol] 4.0 g/dL Normal 3.9-4.9 [facility] Comment on above: Order Comment: Speci men Type: BLOOD SPECIMENOrdering Facility: [facility] Address: [address] [place] [address] Performed By: #### 2 43208-11, 1987-10 ####[facility] LABORATORYCLIA [id number] [address] [place] ALP [Catalytic activity/Vol] 103 U/L Normal 34-123 [facility] Comment on above: Order Comment: Speci men Type: BLOOD SPECIMENOrdering Facility: [facility] Address: [address] [place] [address] Performed By: #### 2 43238, 1987-10 ####[facility] LABORATORYCLIA [id number] [address] [place] ALT With P-5'-P [Catalytic activity/Vol] 12 U/L Normal 7-38 [facility] Comment on above: Order Comment: Speci men Type: BLOOD SPECIMENOrdering Facility: [facility] Address: [address] [place] [address] Performed By: #### 2 43238, 1987-10 ####[facility] LABORATORYCLIA [id number] [place] [address] [place] Anion gap [Moles/Vol] 10 mmol/L Normal 8-15 [facility] Comment on above: Order Comment: Speci men Type: BLOOD SPECIMENOrdering Facility: [facility] Address: [address] [place] [address] Performed By: #### 2 4323-01, 1987-10 ####[facility]ORATORYCLIA [id number] [place] [address] [place] AST With P-5'-P [Catalytic activity/Vol] 16 U/L Normal 13-35 [facility] Comment on above: Order Comment: Speci men Type: BLOOD SPECIMENOrdering Facility: [facility] Address: [address] [place] [address] Performed By: #### 2 4323-01, 1987-10 ####[facility] LABORATORYCLIA [id number] [place] [address] [place] Bilirubin [Mass/Vol] mg/dL Low 0.2-1.3 [facility] Comment on above: Order Comment: Speci men Type: BLOOD SPECIMENOrdering Facility: [facility] Address: [address] [place] [address] Performed By: #### 2 4323-01, 1987-10 ####[facility] LABORATORYCLIA [id number] [place] [address] [place] Calcium [Mass/Vol] 9.3 mg/dL Normal 8.5-10.2 [facility] Comment on above: Order Comment: Speci men Type: BLOOD SPECIMENOrdering Facility: [facility] Address: [address] [place] [address] Performed By: #### 2 4323-01, 1987-10 ####[facility] LABORATORYCLIA [id number] [place] [address] [place] Chloride [Moles/Vol] 105 mmol/L Normal 98-107 [facility] Comment on above: Order Comment: Speci men Type: BLOOD SPECIMENOrdering Facility: [facility] Address: [address] [place] [address] Performed By: #### 2 4323-01, 1987-10 ####[facility] LABORATORYCLIA [id number] [place] [address] [place] CO2 [Moles/Vol] 26 mmol/L Normal 22-30 [facility] Comment on above: Order Comment: Speci men Type: BLOOD SPECIMENOrdering Facility: [facility] Address: [address] [place] [address] Performed By: #### 2 43238, 1987-10 ####[facility] H[facility] SERVICESCLIA [id number] [place] [id number] [place] Creatinine [Mass/Vol] 0.97 mg/dL High 0.58-0.96 [facility] Comment on above: Order Comment: Speci men Type: BLOOD SPECIMENOrdering Facility: [facility] Address: [address] [place] [address] Performed By: #### 2 4323, 1987-10 ####[facility] MED[facility] CENTERIA [id number] [address] Creatinine and Glomerular filtration rate.predicted panel (S/P/Bld) 71 mL/min/1.73m??? Normal >=60 [facility] Comment on above: Order Comment: Speci men Type: BLOOD SPECIMENOrdering Facility: [facility] Address: [address] [place] [address] Result Comment: Marla mated Glomerular Filtration Rate (eGFR) is calculated using the 2020 CKD-EPI creatinine equation. This equation utilizes serum creatinine, sex, and age as parameters. The creatinine assay has traceable calibration to isotope dilution-mass spectrometry. Refer to KDIGO guidelines for clinical interpretation. In patients with unstable renal function, e.g. those with acute kidney injury, the eGFR may not accurately reflect actual GFR. Performed By: #### 2 43238, 1987-10 ####[facility] LABORATORYCLIA [id number] [place] [id number] [place] [facility] Glucose [Mass/Vol] 97 mg/dL Normal 74-99 [facility] Comment on above: Order Comment: Speci men Type: BLOOD SPECIMENOrdering Facility: [facility] Address: [address] [place] [address] Result Comment: The [place] [employer] (ADA) provides guidance for cutoff values for fasting glucose and random glucose. The ADA defines fasting as no caloric intake for at least 8 hours. Fasting plasma glucose results between 100 to 125 mg/dL indicate increased risk for diabetes (prediabetes). Fasting plasma glucose results greater than or equal to 126 mg/dL meet the criteria for diagnosis of diabetes. In the absence of unequivocal hyperglycemia, results should be confirmed by repeat testing. In a patient with classic symptoms of hyperglycemia or hyperglycemic crisis, random plasma glucose results greater than or equal to 200 mg/dL meet the criteria for diagnosis of diabetes. Reference: Standards of Medical Care in Diabetes 2016, [place] [employer]. Diabetes Care. 2016.39(Suppl 1). Performed By: #### 2 4323-01, 1987-10 ####[facility] LABORATORYCLIA [id number] [place] [address] [place] Potassium [Moles/Vol] 3.9 mmol/L Normal 3.7-5.1 [facility] Comment on above: Order Comment: Grace jones Type: BLOOD SPECIMENOrdering Facility: [facility] Address: [address] [place] [address] Performed By: #### 2 4323-01, 1987-10 ####[facility] LABORATORYCLIA [id number] [place] [address] [place] Protein [Mass/Vol] 7.0 g/dL Normal 6.3-8.0 [facility] Comment on above: Order Comment: Grace jones Type: BLOOD SPECIMENOrdering Facility: [facility] Address: [address] [place] [address] Performed By: #### 2 4323-01, 1987-10 ####[facility] LABORATORYCLIA [id number] [place] [id number] [place] Sodium [Moles/Vol] 141 mmol/L Normal 136-144 [facility] Comment on above: Order Comment: Grace men Type: BLOOD SPECIMENOrdering Facility: [facility] Address: [address] [place] [address] Performed By: #### 2 4323-01, 1987-10 ####[facility] LABORATORYCLIA [id number] [place] [address] [place] Urea nitrogen [Mass/Vol] 13 mg/dL Normal 7-21 [facility] Comment on above: Order Comment: Speci men Type: BLOOD SPECIMENOrdering Facility: [facility] Address: [address] [place] [address] Performed By: #### 2 4323-8, 1987-10 ####[facility] LABORATORYCLIA [id number] [place] [id number] [place] Hepatitis A antibodies, tota jose juan 03-04-2024 HAV Ab IA Ql (S) Negative Negative [facility] Comment on above: Performed By: LYNNETTE irvin [address] [place] [address] [employer] Operator: Noah Figueroa MD, PhD CLIA Number: [id number] [facility] HBV surface Ab IA Qnon 03-02 Interpretation: <8.0 Non-Reactive 8.0-11.9 Equivocal >= 12.0 Ab Detected Note: If an equivocal result is interpreted, an antibody status is unable to be determined. Collect new specimen if clinically indicated. [facility] HEPATITIS A ANTIBODY, TOTALo n 03-02-2024 HEP A ANTIBODY, TOTAL Negative Normal Negative [facility] Comment on above: Result Comment: Perf ormed By: [employer] [address] [place] [address] [employer] Operator: Noah Figueroa MD, PhD CLIA Number: [id number] Performed By: #### L AB797 #### [facility] ([facility]) [address] [place], [place] [id number] HEPATITIS B SURFACE ANTIBODY on 03-02-2024 HEPATITIS B VIRUS SURFACE AB <8.0 Normal [facility] Comment on above: Result Comment: ORDE R COMMENTS: Interpretation: <8.0 Non-Reactive 8.0-11.9 Equivocal >= 12.0 Ab Detected Note: If an equivocal result is interpreted, an antibody status is unable to be determined. Collect new specimen if clinically indicated. Performed By: #### L AB472 #### Fermentation Operator: KERI KRUGER ([id number] ([facility]) [address] [place] [address] Hepatitis B surface antibody on 03-02-2024 HBV surface Ab IA Qn mIU/mL [facility] EGD Study observation Ellie garrido 02-14-2024 [facility] Patient Name: Callie Kennedy Procedure Date: 02/13/2024 2:46 PM Date of : 1970 Admit Type: Outpatient Age: 53 Room: [place] [address] Gender: Female Note Status: Finalized Attending MD: Alia Parmar MD, [id number] Procedure: Upper GI endoscopy Indications: Nausea with vomiting; h/o IBD Providers: Alia Parmar MD Patient Profile: Refer to note in patient chart for documentation of history and physical. Referring Physician: Alia Parmar MD (Referring MD) Medicines: Monitored Anesthesia Care, See the Anesthesia note for documentation of the administered medications Complications: No immediate complications. Estimated blood loss: Minimal. Requesting Provider: Procedure: Pre-Anesthesia Assessment: - Prior to the procedure, a History and Physical was performed, and patient medications and allergies were reviewed. The patient's tolerance of previous anesthesia was also reviewed. The risks and benefits of the procedure and the sedation options and risks were discussed with the patient. All questions were answered, and informed consent was obtained. Prior Anticoagulants: The patient has taken no anticoagulant or antiplatelet agents. ASA Grade Assessment: See anesthesia record. After reviewing the risks and benefits, the patient was deemed in satisfactory condition to undergo the procedure. After obtaining informed consent, the endoscope was passed under direct vision. Throughout the procedure, the patient's blood pressure, pulse, and oxygen saturations were monitored continuously. The Endoscope was introduced through the mouth, and advanced to the third part of duodenum. I was present and participated during the entire procedure, including non-rico portions, and during the administration and monitoring of Moderate Sedation. The upper GI endoscopy was accomplished without difficulty. The patient tolerated the procedure well. Moderate Sedation: MAC anesthesia was administered by the anesthesia team. Findings: The Z-line was regular and was found 38 cm from the incisors. The examined esophagus was normal. The entire examined stomach was normal, including retroflexion views of the GE junction. Biopsies were taken from the antrum with a cold forceps for histology. The pathology specimen was placed into Bottle Number 2. A 2 cm hiatal hernia was present. The Z-line was at 38 cm and the diaphragmatic pinch was at 40 cm. The duodenal bulb, second portion of the duodenum and third portion of the duodenum were normal. Biopsies for histology were taken with a cold forceps for evaluation of celiac disease. The pathology specimen was placed into Bottle Number 1. Impression: - Z-line regular, 38 cm from the incisors. - Normal esophagus. - Normal stomach. Biopsied. - 2 cm hiatal hernia. - Normal duodenal bulb, second portion of the duodenum and third portion of the duodenum. Biopsied. Recommendation: - Patient has a contact number available for emergencies. The signs and symptoms of potential delayed complications were discussed with the patient. Return to normal activities tomorrow. Written discharge instructions were provided to the patient. - Resume previous diet. - Continue present medications. - Resume anticoagulant medication and antiplatelet medication at prior doses today. Procedure Code(s): --- Professional --- 01967, Esophagogastroduodenosco py, flexible, transoral; with biopsy, single or multiple CPT copyright 2020 [place] [employer] (more content not included)... [facility] Flexible sigmoidoscopy study on 02-14-2024 [facility] Patient Name: Callie Kennedy Procedure Date: 02/13/2024 2:45 PM Date of : 1970 Admit Type: Outpatient Age: 53 Room: [place] [address] Gender: Female Note Status: Finalized Attending MD: Alia Parmar MD, [id number] Procedure: Colonoscopy Indications: Follow-up of ulcerative colitis Providers: Alia Parmar MD Patient Profile: Refer to note in patient chart for documentation of history and physical. Last Colonoscopy: Referring Physician: Alia Parmar MD (Referring MD) Medicines: Monitored Anesthesia Care, See the Anesthesia note for documentation of the administered medications Complications: No immediate complications. Requesting Provider: Procedure: Pre-Anesthesia Assessment: - Prior to the procedure, a History and Physical was performed, and patient medications and allergies were reviewed. The patient's tolerance of previous anesthesia was also reviewed. The risks and benefits of the procedure and the sedation options and risks were discussed with the patient. All questions were answered, and informed consent was obtained. Prior Anticoagulants: The patient has taken no anticoagulant or antiplatelet agents. ASA Grade Assessment: See anesthesia record. After reviewing the risks and benefits, the patient was deemed in satisfactory condition to undergo the procedure. After I obtained informed consent, the scope was passed under direct vision. Throughout the procedure, the patient's blood pressure, pulse, and oxygen saturations were monitored continuously. The Colonoscope was introduced through the anus and advanced to the terminal ileum, with identification of the appendiceal orifice and IC valve. I was present and participated during the entire procedure, including non-rico portions, and during the administration and monitoring of Moderate Sedation. The colonoscopy was performed without difficulty. The patient tolerated the procedure well. The quality of the bowel preparation was fair. The ileocecal valve, appendiceal orifice, and rectum were photographed. Moderate Sedation: MAC anesthesia was administered by the anesthesia team. MAC anesthesia was administered by the anesthesia team. Findings: Skin tags were found on perianal exam. The digital rectal exam findings include non-thrombosed external hemorrhoids. Pertinent negatives include normal sphincter tone and no palpable rectal lesions. Non-bleeding internal hemorrhoids were found during retroflexion. The hemorrhoids were small. The terminal ileum appeared normal. The ascending colon and cecum appeared normal. One to 2 biopsies were taken every 10 cm with a cold forceps for Crohn's disease surveillance, dysplasia surveillance and ulcerative colitis surveillance. These biopsy specimens were sent to Pathology. The pathology specimen was placed into Bottle Number 3. The transverse colon appeared normal. One to 2 biopsies were taken every 10 cm with a cold forceps for Crohn's disease surveillance, dysplasia surveillance and ulcerative colitis surveillance. These biopsy specimens were sent to Pathology. The pathology specimen was placed into Bottle Number 4. A few five mm ulcers with significant edema and nodularity and mass like appearance given the heaped up edema were found at what appeared to be the splenic flexure at 75 cm from the anal verge. The descending colon and transverse colon were redundant. No bleeding was present but the ulcerated, heaped up area was friable if touched with the colonoscope or biopsy cable. Biopsies were taken with a cold forceps for histology and to rule out CMV. These ulcers were deep and more typical appearance of Crohn's disase. The pathology specimen was placed into Bottle Number 5. The descending colon appeared otherwise normal. One to 2 biops (more content not included)... [facility] EGD Study observation Narrat iveon 02-13-2024 Radiology Study observation (narrative) [facility] Flexible sigmoidoscopy study on 02-13-2024 Radiology Study observation (narrative) [facility] CT ENTEROGRAPHY W IVCONon CT ENTEROGRAPHY W IVCON * * *Final Report* * * DATE OF EXAM: Jan 03 2024 2:57PM [facility] 0545 - CT ENTEROGRAPHY W IVCON / PROCEDURE REASON: Right lower quadrant abdominal pain * * * * Physician Interpretation * * * * CT SCAN OF THE ABDOMEN AND PELVIS WITH IV CONTRAST - ENTEROGRAPHY CLINICAL HISTORY: Right lower quadrant abdominal pain As per clinical note: Ulcerative colitis TECHNIQUE: CT scan of the abdomen and pelvis with IV contrast and neutral density oral contrast. Scan phases: Enterographic Contrast: IV: 125 ml of Omnipaque 350 Oral: [address] Radiation dose: Integrated Dose-length product (DLP) for this visit = 383.55 mGy*cm. CT Dose Reduction Employed: Automated exposure control(AEC) and iterative recon COMPARISON: Radiograph of the thoracic spine 07/18/2023 and prior RESULT: Stomach and duodenum: Unremarkable Small Bowel: Normal in course and caliber without mural thickening or mucosal hyperenhancement. Terminal ileum is normal. Colon and Rectum: Appendectomy. Mild mucosal thickening of the sigmoid and lower rectum, no perirectal inflammatory changes. Fistulae: None. Abscess: None. Mesentery/peritoneum: No mesenteric fat stranding, no fluid collection. Lymph nodes: No lymphadenopathy. Liver: A 1.2 cm hemangioma of the right hepatic dome is less conspicuous likely due to contrast bolus timing. Gallbladder: No CT evident gallstones. Biliary system: No biliary ductal dilatation. Unchanged mild ectasia of the CBD measures up to 0.8 cm with smooth distal tapering. Pancreas: Normal. Spleen: Normal. Adrenal glands: Normal. Kidneys and ureters: Symmetric nephrograms. No hydronephrosis or nephrolithiasis. Unchanged moderate ureteric ectasia and chronic urothelial thickening distally. Vasculature: - Abdominal aorta and iliac arteries: No aortic aneurysm, no significant atherosclerotic plaque - Celiac and SMA: Patent - Portal venous system (SMV, splenic vein, portal vein and branches): Patent. - Hepatic veins: Patent. - Other: None Reproductive organs: Hysterectomy. Atrophic adnexa. Urinary bladder: Normal. Abdominal wall and bones: Sacroiliac joints are patent. No suspicious lytic or sclerotic osseous lesions. A 0.5 cm sclerotic focus in the right femoral neck is unchanged and likely bone island. Visualized lower thorax: Stable 0.4 cm fissure nodule present in the anterior medial basal left lower lobe (2, 8) Supervisor [place] (topogram) images: No additional findings. IMPRESSION: 1. Mild mucosal thickening of the rectum and distal sigmoid, reflecting active inflammation. No penetrating disease. 2. No significant extra gastrointestinal findings. Company Secretary: PSCB Transcribe Date/Time: Jan 06 2024 9:38A Dictated by : BLU RANGEL MD This examination was interpreted and the report reviewed and electronically signed by: BLU RANGEL MD on Jan 06 2024 9:53AM EST [id number] Normal [facility] CALLIE KENNEDY ([id number]) 1970 F CHT Date Time Provider Department 12/28/23 ALIA PARMAR AKASC During your visit today, we recorded the following information about you: Allergies As of Date: 12/28/2023 Noted Allergy Reaction HYDROQUINONE 09/23/2022 10 - Anaphylaxis CODEINE 10/15/2003 8 - GI Upset GADOTERATE MEGLUMINE 10/24/2023 16 - Unknown HUMIRA (ADALIMUMAB) 11/19/2022 4 - Hives STELARA (USTEKINUMAB) 11/19/2022 12 - Shortness of Breath Date Reviewed: 12/20/2023 Reviewed by: Cielo Roldan MA - Fully Assessed Prescriptions as of 12/28/2023 - baclofen 10 mg tablet Take 10 mg by mouth three times a day. - polyethylene glycol 3350 17 gram packet Take 17 g by mouth once daily. - iv contrast (will be provided with radiology test) CT Enterography W Inject, intravenously, once for 1 dose.No IV access, insert saline lock prior to the beginning of sedation, infusion, injection of imaging exam. Discontinue saline lock post exam. If Pt. has a central line or IVAD, may access for administration according to line specific nursing protocol. Once exam is complete flush line and de-access according to line specific nursing protocol in the CT contrast administration guidelines link. - enteric contrast (will be provided with radiology test) For CT ENTEROGRAPHY W IVCON order Administer, As Directed One Time Only, via Oral, Rectal, both Oral and Rectal, Enteric Tube, Stoma or Indwelling Catheter,? Enteric Contrast as designated per enteric contrast guidelines. - traZODone (DESYREL) 100 mg tablet Take 100 mg by mouth at bedtime as needed. For Insomnia - venlafaxine ER (EFFEXOR XR) 75 mg 24 hr capsule Take 75 mg by mouth once daily. - montelukast (SINGULAIR) 10 mg tablet Take 1 tablet by mouth once daily. - albuterol HFA (PROVENTIL HFA, VENTOLIN HFA) 90 mcg/actuation inhaler Inhale 2 Puffs as instructed every 6 hours. Problem List As Of Date 12/28/2023 Noted Resolved Lump or mass in breast [N63.0] 02/20/2007 02/07/2018 Multinodular goiter [E04.2] 05/26/2010 Right lower quadrant abdominal pain [R10.31] 01/31/2016 02/07/2018 Endometriosis [N80.9] 02/13/2016 02/07/2018 Pelvic adhesions [N73.6] 02/13/2016 02/07/2018 Colitis [K52.9] 02/07/2020 Severe protein-calorie malnutrition (HCC) [E43] 02/07/2020 Personal history of nicotine dependence [Z87.89*12/23/2016 Irritable bowel syndrome [K58.9] 02/24/2021 Pectoralis minor syndrome (HCC) [I77.89] 02/24/2021 Pulmonary embolism (HCC) [I26.99] 06/06/2001 Atypical chest pain [R07.89] 09/23/2022 Encounter Status:Closed by ALIA PARMAR on 12/28/23 Normal [facility] 1,25-dihydroxyvitamin D3 [Ma ss/Vol]on 12-21-2023 VIT D1,25 DIHYDROXY 75.8 pg/mL Normal 19.9-79.3 [facility] Comment on above: Order Comment: Speci men Type: BLOOD SPECIMENOrdering Facility: [facility] Address: [address] [place] [address] Performed By: #### 1 649-3 ####[facility] LABIA [id number] [place] [address] [facility] [place] BLOOD TB SCREEN, INCUBATEDon 12-21-2023 M. tuberculosis tuberculin stim IFN-g Ql (Bld) Negative Normal [facility] Comment on above: Order Comment: Speci men Type: BLOOD SPECIMENOrdering Facility: [facility] Address: [address] [place] [address] Performed By: #### I NTPGP ####[facility] LABIA [id number] [place] [address] [place] MITOGEN MINUS NIL >9.99 Normal >=0.50 [facility] Comment on above: Order Comment: Speci men Type: BLOOD SPECIMENOrdering Facility: [facility] Address: [address] [place] [address] Performed By: #### I NTPGP ####[facility] LABIA [id number] [place] [id number] [place] TB GAMMA INTERPRETATION Infection with M. tuberculosis complex is unlikely. If latent tuberculosis infection is highly suspected, a negative result does not rule out the infection. Specimens from immunocompromised patients and those <5 years of age may show false negative results. In case of a contact investigation, please repeat 8-12 weeks after a known exposure. Normal [facility] Comment on above: Order Comment: Speci men Type: BLOOD SPECIMENOrdering Facility: [facility] Address: [address] [place] [address] Performed By: #### I NTPGP ####[facility] LABCLIA [id number] [place] [address] [place] TB NIL 0.01 IU/mL Normal <=8.00 [facility] Comment on above: Order Comment: Speci men Type: BLOOD SPECIMENOrdering Facility: [facility] Address: [address] [place] [address] Performed By: #### I NTPGP ####[facility] LABCLIA [id number] [place] [address] [place] TB1 AG MINUS NIL 0.01 IU/mL Normal <0.35 [facility] Comment on above: Order Comment: Speci men Type: BLOOD SPECIMENOrdering Facility: [facility] Address: [address] [place] [address] Performed By: #### I NTPGP ####[facility] LABCLIA [id number] [address] [place] TB2 AG MINUS NIL 0.00 IU/mL Normal <0.35 [facility] Comment on above: Order Comment: Speci men Type: BLOOD SPECIMENOrdering Facility: [facility] Address: [address] [place] [address] Performed By: #### I NTPGP ####[facility] LABCLIA [id number] [place] [address] [place] CBC W Auto Differential pane l (Bld)on 12-21-2023 Basophils (Bld) [#/Vol] 0.04 10*3/uL Normal <0.11 [facility] Comment on above: Order Comment: Speci men Type: BLOOD SPECIMENOrdering Facility: [facility] Address: [address] [place] [address] Performed By: #### 5 7021-8 ####[facility] LABORATORYCLIA [id number] [place], [place] [address] [place] [address] [place] Basophils/100 WBC (Bld) 0.5 % Normal [facility] Comment on above: Order Comment: Speci men Type: BLOOD SPECIMENOrdering Facility: [facility] Address: [address] [place] [address] Performed By: #### 5 7021-8 ####[facility] LABORATORYCLIA [id number] [address] STATES [facility] Differential cell count method Nom (Bld) Auto Normal [facility] Comment on above: Order Comment: Speci men Type: BLOOD SPECIMENOrdering Facility: [facility] Address: [address] [place] [address] Performed By: #### 5 7021-8 ####[facility] LABORATORYCLIA [id number] [address] [place] Eosinophils (Bld) [#/Vol] 0.03 10*3/uL Normal <0.46 [facility] Comment on above: Order Comment: Speci men Type: BLOOD SPECIMENOrdering Facility: [facility] Address: [address] [place] [address] Performed By: #### 5 7021-8 ####[facility] LABORATORYCLIA [id number] [address] STATES [facility] Eosinophils/100 WBC (Bld) 0.4 % Normal [facility] Comment on above: Order Comment: Speci men Type: BLOOD SPECIMENOrdering Facility: [facility] Address: [address] [place] [address] Performed By: #### 5 7021-8 ####[facility] LABORATORYCLIA [id number] [address] Erythrocyte distribution width (RBC) [Ratio] 12.2 % Normal 11.5-15.0 [facility] Comment on above: Order Comment: Speci men Type: BLOOD SPECIMENOrdering Facility: [facility] Address: [address] [place] [address] Performed By: #### 5 7021-8 ####[facility] LABORATORYCLIA [id number] [address] [place] Hematocrit (Bld) [Volume fraction] 44.2 % Normal 36.0-46.0 [facility] Comment on above: Order Comment: Speci men Type: BLOOD SPECIMENOrdering Facility: [facility] Address: [address] [place] [address] Performed By: #### 5 7021-8 ####[facility]ORATORYCLIA [id number] [address] [place] Hemoglobin (Bld) [Mass/Vol] 14.5 g/dL Normal 11.5-15.5 [facility] Comment on above: Order Comment: Speci men Type: BLOOD SPECIMENOrdering Facility: [facility] Address: [address] [place] [address] Performed By: #### 5 7021-8 ####[facility] LABORATORYCLIA [id number] [place] [address] [place] Immature granulocytes (Bld) [#/Vol] 0.03 10*3/uL Normal <0.10 [facility] Comment on above: Order Comment: Speci men Type: BLOOD SPECIMENOrdering Facility: [facility] Address: [address] [place] [address] Performed By: #### 5 7021-8 ####[facility] LABORATORYCLIA [id number] [address] [place] Immature granulocytes/100 WBC (Bld) 0.4 % Normal [facility] Comment on above: Order Comment: Speci men Type: BLOOD SPECIMENOrdering Facility: [facility] Address: [address] [place] [address] Performed By: #### 5 7021-8 ####[facility]ORATORYCLIA [id number] [place] [address] [place] Lymphocytes (Bld) [#/Vol] 1.76 10*3/uL Normal 1.00-4.00 [facility] Comment on above: Order Comment: Speci men Type: BLOOD SPECIMENOrdering Facility: [facility] Address: [address] [place] [address] Performed By: #### 5 7021-8 ####[facility]ORATORYCLIA [id number] [address] Lymphocytes/100 WBC (Bld) 23.8 % Normal [facility] Comment on above: Order Comment: Speci men Type: BLOOD SPECIMENOrdering Facility: [facility] Address: [address] [place] [address] Performed By: #### 5 7021-8 ####[facility] LABORATORYCLIA [id number] [address] MCH (RBC) [Entitic mass] 30.3 pg Normal 26.0-34.0 [facility] Comment on above: Order Comment: Speci men Type: BLOOD SPECIMENOrdering Facility: [facility] Address: [address] [place] [address] Performed By: #### 5 7021-8 ####[facility] LABORATORYCLIA [id number] [address] MCHC (RBC) [Mass/Vol] 32.8 g/dL Normal 30.5-36.0 [facility] Comment on above: Order Comment: Speci men Type: BLOOD SPECIMENOrdering Facility: [facility] Address: [address] [place] [address] Performed By: #### 5 7021-8 ####[facility] LABORATORYCLIA [id number] [address] MCV (RBC) [Entitic vol] 92.5 fL Normal 80.0-100.0 [facility] Comment on above: Order Comment: Speci men Type: BLOOD SPECIMENOrdering Facility: [facility] Address: [address] [place] [address] Performed By: #### 5 7021-8 ####[facility] LABORATORYCLIA [id number] [address] Monocytes (Bld) [#/Vol] 0.41 10*3/uL Normal <0.87 [facility] Comment on above: Order Comment: Speci men Type: BLOOD SPECIMENOrdering Facility: [facility] Address: [address] [place] [address] Performed By: #### 5 7021-8 ####[facility]ORATORYCLIA [id number] [address] [place] Monocytes/100 WBC (Bld) 5.5 % Normal [facility] Comment on above: Order Comment: Speci men Type: BLOOD SPECIMENOrdering Facility: [facility] Address: [address] [place] [address] Performed By: #### 5 7021-8 ####[facility]ORATORYCLIA [id number] [place] [address] [place] Neutrophils (Bld) [#/Vol] 5.14 10*3/uL Normal 1.45-7.50 [facility] Comment on above: Order Comment: Speci men Type: BLOOD SPECIMENOrdering Facility: [facility] Address: [address] [place] [address] Performed By: #### 5 7021-8 ####[facility]ORATORYCLIA [id number] [address] [place] Neutrophils/100 WBC (Bld) 69.4 % Normal [facility] Comment on above: Order Comment: Speci men Type: BLOOD SPECIMENOrdering Facility: [facility] Address: [address] [place] [address] Performed By: #### 5 7021-8 ####[facility]ORATORYCLIA [id number] [place] [address] [place] Nucleated RBC (Bld) [#/Vol] 10*3/uL Normal <0.01 [facility] Comment on above: Order Comment: Speci men Type: BLOOD SPECIMENOrdering Facility: [facility] Address: [address] [place] [address] Performed By: #### 5 7021-8 ####[facility]ORATORYCLIA [id number] [place] [address] [place] Nucleated RBC/100 WBC (Bld) [Ratio] 0.0 /100 WBC Normal [facility] Comment on above: Order Comment: Speci men Type: BLOOD SPECIMENOrdering Facility: [facility] Address: [address] [place] [address] Performed By: #### 5 7021-8 ####[facility] LABORATORYCLIA [id number] [address] [place] Platelet mean volume (Bld) [Entitic vol] 10.8 fL Normal 9.0-12.7 [facility] Comment on above: Order Comment: Speci men Type: BLOOD SPECIMENOrdering Facility: [facility] Address: [address] [place] [address] Performed By: #### 5 7021-8 ####[facility] LABORATORYCLIA [id number] [address] [place] Platelets (Bld) [#/Vol] 363 10*3/uL Normal 150-400 [facility] Comment on above: Order Comment: Speci men Type: BLOOD SPECIMENOrdering Facility: [facility] Address: [address] [place] [address] Performed By: #### 5 7021-8 ####[facility] LABORATORYCLIA [id number] [place] [address] [place] RBC (Bld) [#/Vol] 4.78 10*6/uL Normal 3.90-5.20 [facility] Comment on above: Order Comment: Speci men Type: BLOOD SPECIMENOrdering Facility: [facility] Address: [address] [place] [address] Performed By: #### 5 7021-8 ####[facility] LABORATORYCLIA [id number] [place] [address] [place] WBC (Bld) [#/Vol] 7.41 10*3/uL Normal 3.70-11.00 [facility] Comment on above: Order Comment: Speci men Type: BLOOD SPECIMENOrdering Facility: [facility] Address: [address] [place] [address] Performed By: #### 5 7021-8 ####[facility] LABORATORYCLIA [id number] [address] STATES OF [facility] CELIAC SCREENon 12-21-2023 GLIAD DEAMIDATED IGA QUAL Negative Normal Negative, Test not Indicated [facility] Comment on above: Order Comment: Grace jones Type: BLOOD SPECIMENOrdering Facility: [facility] Address: [address] [place] [address] Result Comment: This is used as an aid in diagnosis of celiac disease. Clinical correlation is required. The following results were obtained with an [employer] QUANTA Lite Gliadin IgA RUTHY Gliadin. Gliadin IgA values obtained with different manufacturers' assay methods may not be used interchangeably. The magnitude of the reported IgA levels cannot be correlated to an endpoint titer. Performed By: #### L [id number] ####[facility] LABIA [id number] [address] [place] Gliadin peptide IgA Qn (S) 5 Units Normal <20 [facility] Comment on above: Order Comment: Grace jones Type: BLOOD SPECIMENOrdering Facility: [facility] Address: [address] [place] [address] Performed By: #### L [id number] ####[facility] LABCLIA [id number] [address] [place] INTERPRETATION No serological evide nce of celiac disease, however, if celiac disease is clinically suspected and patient is not on gluten-free diet, histological diagnosis may be considered. HLA testing may help with risk assessment. Normal [facility] Comment on above: Order Comment: Grace jones Type: BLOOD SPECIMENOrdering Facility: [facility] Address: [address] [place] [address] Performed By: #### L [id number] ####[facility] LABIA [id number] [address] [place] TRANSGLUTAMINASE IGA ABS INTERPRETATION Negative Normal Negative [facility] Comment on above: Order Comment: Grace jones Type: BLOOD SPECIMENOrdering Facility: [facility] Address: [address] [place] [address] Result Comment: The following results were obtained with [employer] QUANTA Lite R h-tTG IgA RUTHY.???R h-tTG IgA values obtained with different manufacturers' assay methods may not be used interchangeably. The magnitude of the reported IgA levels cannot be corelated to an endpoint???concentration. This is used as an aid in diagnosis of celiac disease. Clinical correlation is required. Performed By: #### L [id number] ####[facility] LABCLIA [id number] [address] [place] tTG IgA Qn (S) <2 Normal <4 [facility] Comment on above: Order Comment: Speci men Type: BLOOD SPECIMENOrdering Facility: [facility] Address: [address] [place] [address] Performed By: #### L [id number] ####[facility] LABCLIA [id number] [place] [address] [place] CRP SerPl-mCncon 12-21-2023 CRP [Mass/Vol] mg/L Normal <0.9 [facility] Comment on above: Order Comment: Speci men Type: BLOOD SPECIMENOrdering Facility: [facility] Address: [address] [place] [address] Performed By: #### 2 4323-8, 65865-2, 2275-09, 1987-10 ####[facility] LABORATORYCLIA [id number] [place] [address] [place] Comprehensive metabolic 2000 panelon 12-21-2023 Albumin [Mass/Vol] 4.5 g/dL Normal 3.9-4.9 [facility] Comment on above: Order Comment: Speci men Type: BLOOD SPECIMENOrdering Facility: [facility] Address: [address] [place] [address] Performed By: #### 2 4323-8, 99235-2, 2275-09, 1987-10 ####[facility] LABORATORYCLIA [id number] [place] [address] [place] ALP [Catalytic activity/Vol] 120 U/L Normal 34-123 [facility] Comment on above: Order Comment: Speci men Type: BLOOD SPECIMENOrdering Facility: [facility] Address: [address] [place] [address] Performed By: #### 2 4323-8, 38598-6, 2275-09, 1987-10 ####[facility] LABORATORYCLIA [id number] [address] [place] ALT With P-5'-P [Catalytic activity/Vol] 18 U/L Normal 7-38 [facility] Comment on above: Order Comment: Speci men Type: BLOOD SPECIMENOrdering Facility: [facility] Address: [address] [place] [address] Performed By: #### 2 4323-8, 44466-0, 2275-09, 1987-10 ####[facility] LABORATORYCLIA [id number] [address] [place] Anion gap [Moles/Vol] 14 mmol/L Normal 8-15 [facility] Comment on above: Order Comment: Speci men Type: BLOOD SPECIMENOrdering Facility: [facility] Address: [address] [place] [address] Performed By: #### 2 4323-8, 93437-3, 2275-09, 1987-10 ####[facility] LABORATORYCLIA [id number] [address] STATES OF [facility] AST With P-5'-P [Catalytic activity/Vol] 21 U/L Normal 13-35 [facility] Comment on above: Order Comment: Speci men Type: BLOOD SPECIMENOrdering Facility: [facility] Address: [address] [place] [address] Performed By: #### 2 4323-8, 78162-9, 2275-09, 1987-10 ####[facility] LABORATORYCLIA [id number] [place] [address] [place] Bilirubin [Mass/Vol] 0.3 mg/dL Normal 0.2-1.3 [facility] Comment on above: Order Comment: Speci men Type: BLOOD SPECIMENOrdering Facility: [facility] Address: [address] [place] [address] Performed By: #### 2 4323-8, 91169-8, 2275-09, 1987-10 ####[facility] LABORATORYCLIA [id number] [place] [address] [place] Calcium [Mass/Vol] 9.5 mg/dL Normal 8.5-10.2 [facility] Comment on above: Order Comment: Speci men Type: BLOOD SPECIMENOrdering Facility: [facility] Address: [facility] [place] [address] Performed By: #### 2 4323-8, 95816-5, 2275-09, 1987-10 ####[facility] LABORATORYCLIA [id number] [place] [address] [place] Chloride [Moles/Vol] 101 mmol/L Normal 98-107 [facility] Comment on above: Order Comment: Speci men Type: BLOOD SPECIMENOrdering Facility: [facility] Address: [facility] [place] [address] Performed By: #### 2 4323-8, 60522-8, 2275-09, 1987-10 ####[facility] LABORATORYCLIA [id number] [place] [address] [place] CO2 [Moles/Vol] 27 mmol/L Normal 22-30 [facility] Comment on above: Order Comment: Speci men Type: BLOOD SPECIMENOrdering Facility: [facility] Address: [facility] [place] [address] Performed By: #### 2 4323-8, 78526-7, 2275-09, 1987-10 ####[facility] LABORATORYCLIA [id number] [place] [address] [place] Creatinine [Mass/Vol] 0.88 mg/dL Normal 0.58-0.96 [facility] Comment on above: Order Comment: Speci men Type: BLOOD SPECIMENOrdering Facility: [facility] Address: [facility] [place] [address] Performed By: #### 2 4323-8, 12127-1, 2276-1987-10 ####[facility]ENTERIA [id number] [place] [id number] [place] Creatinine and Glomerular filtration rate.predicted panel (S/P/Bld) 80 mL/min/1.73m??? Normal >=60 [facility] Comment on above: Order Comment: Grace jones Type: BLOOD SPECIMENOrdering Facility: [facility] Address: [address] [place] [address] Result Comment: Marla mated Glomerular Filtration Rate (eGFR) is calculated using the 2020 CKD-EPI creatinine equation. This equation utilizes serum creatinine, sex, and age as parameters. The creatinine assay has traceable calibration to isotope dilution-mass spectrometry. Refer to KDIGO guidelines for clinical interpretation. In patients with unstable renal function, e.g. those with acute kidney injury, the eGFR may not accurately reflect actual GFR. Performed By: #### 2 4323-8, 04691-7, 2275-09, 1987-10 ####[facility] CENTERIA [id number] [address] [place] Glucose [Mass/Vol] 75 mg/dL Normal 74-99 [facility] Comment on above: Order Comment: Grace jones Type: BLOOD SPECIMENOrdering Facility: [facility] Address: [address] [place] [address] Result Comment: The [place] [employer] (ADA) provides guidance for cutoff values for fasting glucose and random glucose. The ADA defines fasting as no caloric intake for at least 8 hours. Fasting plasma glucose results between 100 to 125 mg/dL indicate increased risk for diabetes (prediabetes). Fasting plasma glucose results greater than or equal to 126 mg/dL meet the criteria for diagnosis of diabetes. In the absence of unequivocal hyperglycemia, results should be confirmed by repeat testing. In a patient with classic symptoms of hyperglycemia or hyperglycemic crisis, random plasma glucose results greater than or equal to 200 mg/dL meet the criteria for diagnosis of diabetes. Reference: Standards of Medical Care in Diabetes 2016, [place] [employer]. Diabetes Care. 2016.39(Suppl 1). Performed By: #### 2 4323-8, 94504-2, 2275-09, 1987-10 ####[facility] LABORATORYIA [id number] [place] [address] [place] Potassium [Moles/Vol] 3.8 mmol/L Normal 3.7-5.1 [facility] Comment on above: Order Comment: Speci men Type: BLOOD SPECIMENOrdering Facility: [facility] Address: [address] [place], [place] [address] Performed By: #### 2 4323-8, 39513-9, 2275-09, 1987-10 ####[facility] [facility]ORYCLIA [id number] [place] [address] [place] Protein [Mass/Vol] 7.7 g/dL Normal 6.3-8.0 [facility] Comment on above: Order Comment: Speci men Type: BLOOD SPECIMENOrdering Facility: [facility] Address: [address] [place] [address] Performed By: #### 2 4323-8, 50904-8, 2275-09, 1987-10 ####[facility] LABORATORYCLIA [id number] [place] [address] [place] Sodium [Moles/Vol] 142 mmol/L Normal 136-144 [facility] Comment on above: Order Comment: Speci men Type: BLOOD SPECIMENOrdering Facility: [facility] Address: [address] [place] [address] Performed By: #### 2 4323-8, 54711-9, 2275-09, 1987-10 ####[facility] LABORATORYCLIA [id number] [place] [address] [place] Urea nitrogen [Mass/Vol] 10 mg/dL Normal 7-21 [facility] Comment on above: Order Comment: Speci men Type: BLOOD SPECIMENOrdering Facility: [facility] Address: [address] [place] [address] Performed By: #### 2 4323-8, 10980-0, 2275-09, 1987-10 ####[facility] LABORATORYCLIA [id number] [place] [address] [place] Ferritin [facility] Ferritin [Mass/Vol] 68.4 ng/mL Normal 14.7-205.1 [facility] Comment on above: Order Comment: Speci men Type: BLOOD SPECIMENOrdering Facility: [facility] Address: [address] [place] [address] Performed By: #### 2 4323-8, 70066-7, 2276-4, 1987- ####[facility] LABORATORYCLIA [id number] [address] OF [facility] HAV IgM Ser Qlon 12-21-2023 HAV IgM Ql (S) Non-Reactive Normal Nonreactive [facility] Comment on above: Order Comment: Speci men Type: BLOOD SPECIMENOrdering Facility: [facility] Address: [address] [place] [address] Result Comment: No e vidence of recent infection with Hepatitis A virus. Performed By: #### 2 132-9, 22148-9, 5195-3 ####[facility] LABORATORYCLIA [id number] [address] OF [facility] HBV surface Ab Ql (S)on 12-04 HBV surface Ab Qn (S) 3.50 mIU/mL Normal [facility] Comment on above: Order Comment: Speci men Type: BLOOD SPECIMENOrdering Facility: [facility] Address: [address] [place] [address] Result Comment: <8.5 mIU/mL: No serological evidence of immunity to Hepatitis B Virus. >/= 8.5 to <11.5 mIU/mL: No serological evidence of immunity to Hepatitis B Virus. >/= 11.5 mIU/mL: Consistent with serological evidence of immunity to Hepatitis B Virus. Performed By: #### 2 2322-2 ####[facility] LABORATORYCLIA [id number] [address] HBV surface Ab Ser Qlon 12-04 HBV surface Ab Ql (S) Negative Normal [facility] Comment on above: Order Comment: Speci men Type: BLOOD SPECIMENOrdering Facility: [facility] Address: [address], [place] [address] Result Comment: No s erological evidence of immunity to Hepatitis B Virus. Performed By: #### 2 2322-2 ####[facility] LABORATORYCLIA [id number] [address] [place] HBV surface Ag Ser Qlon 12-04 HBV surface Ag Ql (S) Non-Reactive Normal Nonreactive [facility] Comment on above: Order Comment: Speci men Type: BLOOD SPECIMENOrdering Facility: [facility] Address: [address] [place] [address] Performed By: #### 2 132-9, 00347-4, 5195-3 ####[facility] LABORATORYCLIA [id number] [address] OF [place] HCV Ab Ser Qlon 12-21-2023 HCV Ab Ql (S) Non-Reactive Normal Nonreactive [facility] Comment on above: Order Comment: Speci men Type: BLOOD SPECIMENOrdering Facility: [facility] Address: [address] [place] [address] Result Comment: The result suggests no evidence of active infection with Hepatitis C virus. Should recent infection be suspected, repeat testing may be considered 4-6 weeks after this draw. Performed By: #### 1 6128-1 ####[facility] LABORATORYCLIA [id number] [address] [place] HEPATITIS A ANTIBODY, IGGon 12-21-2023 HAV IgG Ql (S) Negative Normal [facility] Comment on above: Order Comment: Speci men Type: BLOOD SPECIMENOrdering Facility: [facility] Address: [address] [place] [address] Result Comment: No s erological evidence of immunity to Hepatitis A Virus. Performed By: #### A HAVG ####[facility] LABCLIA [id number] [place] [address] [place] IgA SerPl-mCncon 12-21-2023 IgA [Mass/Vol] 216 mg/dL Normal 70-400 [facility] Comment on above: Order Comment: Speci men Type: BLOOD SPECIMENOrdering Facility: [facility] Address: [address] [place] [address] Performed By: #### 2 458-8 ####[facility] LABCLIA [id number] [place] [id number] [place] Iron and Iron binding capaci ty panelon 12-21-2023 Iron [Mass/Vol] 112 ug/dL Normal 41-186 [facility] Comment on above: Order Comment: Speci men Type: BLOOD SPECIMENOrdering Facility: [facility] Address: [address] [place] [address] Performed By: #### 2 4323-8, 89032-1, 2275-09, 1987-10 ####[facility] CENTERIA [id number] [address] STATES OF [facility] Iron binding capacity [Mass/Vol] 304 ug/dL Normal 232-386 [facility] Comment on above: Order Comment: Speci men Type: BLOOD SPECIMENOrdering Facility: [facility] Address: [address] [place] [address] Performed By: #### 2 4323-8, 81978-9, 2275-09, 1987-10 ####[facility] SERVICESCLIA [id number] [address] STATES OF [facility] Iron saturation [Mass fraction] 36.8 % Normal 15.0-57.0 [facility] Comment on above: Order Comment: Speci men Type: BLOOD SPECIMENOrdering Facility: [facility] Address: [address] [place] [address] Performed By: #### 2 4323-8, 24613-9, 2275-09, 1987-10 ####[facility] LABORATORYCLIA [id number] [place] [address] [place] Vit B12 [facility] 024 Cobalamin (Vitamin B12) [Mass/Vol] 403 pg/mL Normal 232-1245 [facility] Comment on above: Order Comment: Speci men Type: BLOOD SPECIMENOrdering Facility: [facility] Address: [address] [place] [address] Performed By: #### 2 132-9, 18248-8, 5195-3 ####[facility] LABORATORYCLIA [id number] [place] [address] [place] CBC W Auto Differential pane l (Bld)Ordered By: Smita Ricks on 10-31-2023 Basophils (Bld) [#/Vol] 0.0 10*3/uL 0.0 - 0.2 10*3/uL [facility] Basophils/100 WBC (Bld) 0.4 % 0.0 - 2.0 % [facility] Eosinophils (Bld) [#/Vol] 0.0 10*3/uL 0.0 - 0.5 10*3/uL [facility] Eosinophils/100 WBC (Bld) 0.3 % 0.0 - 6.0 % [facility] Erythrocyte distribution width (RBC) [Ratio] 12.0 % 11.5 - 15.0 % [facility] Hematocrit (Bld) [Volume fraction] 38.2 % 35.0 - 47.0 % [facility] Hemoglobin (Bld) [Mass/Vol] 13.5 g/dL 11.7 - 16.0 g/dL [facility] Immature granulocytes (Bld) [#/Vol] 0.1 10*3/uL High NINF - 0.1 10*3/uL [facility] Immature granulocytes/100 WBC (Bld) 0.5 % 0.0 - 2.0 % [facility] Interpretation and review of laboratory results Abnormal [facility] Lymphocytes (Bld) [#/Vol] 2.4 10*3/uL 1.0 - 4.3 10*3/uL [facility] Lymphocytes/100 WBC (Bld) 24.3 % 15.0 - 45.0 % [facility] MCH (RBC) [Entitic mass] 30.5 pg 26.0 - 34.0 pg [facility] MCHC (RBC) [Mass/Vol] 35.3 % 30.5 - 36.0 % [facility] MCV (RBC) [Entitic vol] 86.4 fL 77.0 - 99.0 fL [facility] Monocytes (Bld) [#/Vol] 0.6 10*3/uL 0.0 - 0.9 10*3/uL [facility] Monocytes/100 WBC (Bld) 6.1 % 5.0 - 13.0 % [facility] Neutrophils (Bld) [#/Vol] 6.8 10*3/uL 1.8 - 7.5 10*3/uL [facility] Neutrophils/100 WBC (Bld) 68.4 % 38.0 - 82.0 % [facility] Nucleated RBC/100 WBC (Bld) [Ratio] 0.0 % [facility] Platelet mean volume (Bld) [Entitic vol] 9.5 fL 9.0 - 12.7 fL [facility] Platelets (Bld) [#/Vol] 371 10*3/uL 140 - 440 10*3/uL [facility] RBC (Bld) [#/Vol] 4.42 10*6/uL 3.80 - 5.2 0 10*6/uL [facility] WBC (Bld) [#/Vol] 9.9 10*3/uL 3.6 - 10.7 10*3/uL [facility] CBC WITH AUTO DIFFERENTIALon 10-31-2023 Basophils (Bld) [#/Vol] 0.0 10*3/uL Normal 0.0-0.2 [facility] Comment on above: Performed By: #### L [id number] #### Fermentation Operator: VITOR EMERY ([id number]) [facility] ([facility]) [address] [place] [address] Basophils/100 WBC (Bld) 0.4 % Normal 0.0-2.0 [facility] Comment on above: Performed By: #### L [id number] #### Fermentation Operator: VITOR EMERY ([id number]) [facility] ([facility]) [address] [place] [address] [place] Eosinophils (Bld) [#/Vol] 0.0 10*3/uL Normal 0.0-0.5 [facility] Comment on above: Performed By: #### L [id number] #### Fermentation Operator: VITOR EMERY ([id number]) [facility] ([facility]) [address] [place] [address] [place] Eosinophils/100 WBC (Bld) 0.3 % Normal 0.0-6.0 [facility] Comment on above: Performed By: #### L [id number] #### Fermentation Operator: VITOR EMERY ([id number]) [facility] ([facility]) [address] Erythrocyte distribution width (RBC) [Ratio] 12.0 % Normal 11.5-15.0 [facility] Comment on above: Performed By: #### L [id number] #### Fermentation Operator: VITOR EMERY ([id number]) [facility] [address] Hematocrit (Bld) [Volume fraction] 38.2 % Normal 35.0-47.0 [facility] Comment on above: Performed By: #### L [id number] #### Fermentation Operator: VITOR EMERY ([id number]) [facility] ([facility]) [address] [place] [address] Hemoglobin (Bld) [Mass/Vol] 13.5 g/dL Normal 11.7-16.0 [facility] Comment on above: Performed By: #### L [id number] #### Fermentation Operator: VITOR EMERY ([id number]) [facility] ([facility]) [address] [place] [address] IMMATURE GRANS % 0.5 % Normal 0.0-2.0 [facility] Comment on above: Performed By: #### L [id number] #### Fermentation Operator: VITOR EMERY ([id number]) [facility] [address] IMMATURE GRANS ABSOLUTE 0.1 10*3/uL High <0.1 [facility] Comment on above: Performed By: #### L [id number] #### Fermentation Operator: VITOR EMERY ([id number]) [facility] [address] Lymphocytes (Bld) [#/Vol] 2.4 10*3/uL Normal 1.0-4.3 [facility] Comment on above: Performed By: #### L [id number] #### Fermentation Operator: VITOR EMERY ([id number]) [facility] HICKSBAN[facility] ([facility]) [address] Lymphocytes/100 WBC (Bld) 24.3 % Normal 15.0-45.0 [facility] Comment on above: Performed By: #### L [id number] #### Fermentation Operator: VITOR EMERY ([id number]) [facility] ([facility]) [address] MCH (RBC) [Entitic mass] 30.5 pg Normal 26.0-34.0 [facility] Comment on above: Performed By: #### L [id number] #### Fermentation Operator: VITOR EMERY ([id number]) [facility] [address] MCHC 35.3 % Normal 30.5-36.0 [facility] Comment on above: Performed By: #### L [id number] #### Fermentation Operator: VITOR EMERY ([id number]) [facility] ([facility]) [address] MCV (RBC) [Entitic vol] 86.4 fL Normal 77.0-99.0 [facility] Comment on above: Performed By: #### L [id number] #### Fermentation Operator: VITOR EMERY ([id number]) [facility] ([facility]) [address] Monocytes (Bld) [#/Vol] 0.6 10*3/uL Normal 0.0-0.9 [facility] Comment on above: Performed By: #### L [id number] #### Fermentation Operator: VITOR EMERY ([id number]) [facility] ([facility]) [address] Monocytes/100 WBC (Bld) 6.1 % Normal 5.0-13.0 [facility] Comment on above: Performed By: #### L [id number] #### Fermentation Operator: VITOR EMERY ([id number]) [facility] ([facility]) [address] NEUTROPHILS ABSOLUTE 6.8 10*3/uL Normal 1.8-7.5 [facility] Comment on above: Performed By: #### L [id number] #### Fermentation Operator: VITOR EMERY ([id number]) [facility] ([facility]) [address] Neutrophils/100 WBC (Bld) 68.4 % Normal 38.0-82.0 [facility] Comment on above: Performed By: #### L [id number] #### Fermentation Operator: VITOR EMERY ([id number]) [facility] ([facility]) [address] NRBC 0.0 /100 WBCs Normal 0.0-2.0 [facility] Comment on above: Performed By: #### L [id number] #### Fermentation Operator: VITRO EMERY ([id number]) [facility] ([facility]) [address] Platelet mean volume (Bld) [Entitic vol] 9.5 fL Normal 9.0-12.7 [facility] Comment on above: Performed By: #### L [id number] #### Fermentation Operator: VITOR EMERY ([id number]) [facility] ([facility]) [address] [place] [address] [place] Platelets (Bld) [#/Vol] 371 10*3/uL Normal 140-440 [facility] Comment on above: Performed By: #### L [id number] #### Fermentation Operator: VITOR EMERY ([id number]) [facility] ([facility]) [address] [place] [address] [place] RBC (Bld) [#/Vol] 4.42 10*6/uL Normal 3.80-5.20 [facility] Comment on above: Performed By: #### L [id number] #### Fermentation Operator: VITOR EMERY ([id number]) [facility] ([facility]) [address] WBC (Bld) [#/Vol] 9.9 10*3/uL Normal 3.6-10.7 [facility] Comment on above: Performed By: #### L [id number] #### Fermentation Operator: VITOR EMERY ([id number]) [facility] ([facility]) [address] COMPLETE URINALYSISon 2023 BILIRUBIN, TOTAL PRESENCE IN URINE Negative Normal Negative [facility] Comment on above: Performed By: #### L [id number] ####Fermentation Operator: VITOR EMERY ([id number])[facility] ([facility])[address] [place] [address] Clarity (U) Clear Normal Clear [facility] Comment on above: Performed By: #### L [id number] ####Fermentation Operator: VITOR EMERY ([id number])[facility] ([facility])[address] [place] [address] Color (U) Colorless Normal Lt. Yellow [facility] Comment on above: Performed By: #### L [id number] ####Fermentation Operator: VITOR EMERY ([id number])[facility] ([facility])[address] GLUCOSE (MG/DL) IN URINE Normal Normal Normal (<70) [facility] Comment on above: Performed By: #### L [id number] ####Fermentation Operator: VITOR EMERY ([id number])[facility] ([facility])[address] HEMOGLOBIN PRESENCE IN URINE Negative Normal Negative [facility] Comment on above: Performed By: #### L [id number] ####Fermentation Operator: VITOR EMERY ([id number])[facility] ([facility])[address] Ketones Ql (U) Negative Normal Negative [facility] Comment on above: Performed By: #### L [id number] ####Fermentation Operator: VITOR EMERY ([id number])[facility] ([facility])[address] LEUKOCYTE ESTERASE PRESENCE IN URINE BY TEST STRIP Negative Normal Negative [facility] Comment on above: Performed By: #### L [id number] ####Fermentation Operator: VITOR EMERY ([id number])[facility] ([facility])[address] NITRITE PRESENCE IN URINE Negative Normal Negative [facility] Comment on above: Performed By: #### L [id number] ####Fermentation Operator: VITOR EMERY ([id number])[facility] ([facility])[address] pH (U) 8.0 [pH] Normal 5.0-8.0 [facility] Comment on above: Performed By: #### L AB347 ####Fermentation Operator: VITOR EMERY ([id number])[facility] ([facility])[address] [place] [address] Protein (U) [Mass/Vol] Negative Normal Negative [facility] Comment on above: Performed By: #### L [id number] ####Fermentation Operator: VITOR EMERY ([id number])[facility] ([facility])[address] [place] [address] Specific gravity (U) [Rel density] 1.011 Normal 1.005-1.030 [facility] Comment on above: Performed By: #### L [id number] ####Fermentation Operator: VITOR EEMRY ([id number])[facility] ([facility])[address] [place] [address] UROBILINOGEN (MG/DL) IN URINE Normal Normal Normal (0-1) [facility] Comment on above: Performed By: #### L [id number] ####Fermentation Operator: VITOR EMERY ([id number])[facility] [place] ([facility])[address] COMPREHENSIVE METABOLIC PANE Jose Juan 10-31-2023 Albumin [Mass/Vol] 4.3 g/dL Normal 3.5-5.0 [facility] Comment on above: Performed By: #### L AB17, LAB99 ####Fermentation Operator: VITOR EMERY ([id number])[facility]ITALA BARBNEW MEXICO BEHAVIOR[facility] HE[facility] IN[facility] AT L[facility] VEGASN ([facility])[address] ALP [Catalytic activity/Vol] 107 U/L Normal 38-126 [facility] Comment on above: Performed By: #### L AB17, LAB99 ####Fermentation Operator: VITOR EMERY ([id number])[facility] HICKSNEW MEXICO BEHAVIORAL HEALTH INSTITUTE AT LAS VEGASN ([facility])[address] ALT [Catalytic activity/Vol] 26 U/L Normal 0-34 [facility] Comment on above: Performed By: #### L AB17, LAB99 ####Fermentation Operator: VITOR EMERY ([id number])[facility] ([facility])[address] Anion gap [Moles/Vol] 10 mmol/L Normal 3-13 [facility] Comment on above: Performed By: #### L AB17, LAB99 ####Fermentation Operator: VITOR EMERY ([id number])[facility] ([facility])[address] AST [Catalytic activity/Vol] 31 U/L Normal 15-46 [facility] Comment on above: Performed By: #### L AB17, LAB99 ####Fermentation Operator: VITOR EMERY ([id number])[facility] ([facility])[address] Bilirubin [Mass/Vol] 0.4 mg/dL Normal 0.2-1.3 [facility] Comment on above: Performed By: #### L AB17, LAB99 ####Fermentation Operator: VITOR EMERY ([id number])[facility] [place] ([facility])[address] Calcium [Mass/Vol] 9.3 mg/dL Normal 8.4-10.4 [facility] Comment on above: Performed By: #### L AB17, LAB99 ####Fermentation Operator: VITOR EMERY ([id number])[facility] [place] ([facility])[address] [place] [address] [place] Chloride [Moles/Vol] 104 mmol/L Normal 98-107 [facility] Comment on above: Performed By: #### L AB17, LAB99 ####Fermentation Operator: VITOR EMERY ([id number])[facility] [place] ([facility])[address] CO2 [Moles/Vol] 27 mmol/L Normal 22-30 [facility] Comment on above: Performed By: #### L AB17, LAB99 ####Fermentation Operator: VITOR EMERY ([id number])[facility] [place] ([facility])[address] [place] [address] [place] Creatinine [Mass/Vol] 0.72 mg/dL Normal 0.52-1.04 [facility] Comment on above: Performed By: #### L AB17, LAB99 ####Fermentation Operator: VITOR EMERY ([id number])[facility] [place] ([facility])[address] [place] [address] [place] GLOMERULAR FILTRATION RATE ML/MIN/1.73 SQ M.PREDICTED >90.0 Normal >60.0 [facility] Comment on above: Result Comment: Calc ulation based on the Chronic Kidney Disease Epidemiology Collaboration (CKD-EPI) equation refit without adjustment for race Performed By: #### L AB17, LAB99 ####Fermentation Operator: VITOR EMERY ([id number])[facility] ([facility])[address] [place] [address] [place] Glucose [Mass/Vol] 98 mg/dL Normal 70-100 [facility] Comment on above: Performed By: #### L AB17, LAB99 ####Fermentation Operator: VITOR EMERY ([id number])[facility] ([facility])[address] Potassium [Moles/Vol] 3.8 mmol/L Normal 3.5-5.1 [facility] Comment on above: Performed By: #### L AB17, LAB99 ####Fermentation Operator: VITOR YULY ([id number])[facility] ([facility])[address] Protein [Mass/Vol] 7.5 g/dL Normal 6.3-8.2 [facility] Comment on above: Performed By: #### L AB17, LAB99 ####Fermentation Operator: VITOR YULY ([id number])[facility] ([facility])[address] [place] [address] Sodium [Moles/Vol] 141 mmol/L Normal 135-145 [facility] Comment on above: Performed By: #### L AB17, LAB99 ####Fermentation Operator: VITOR YULY ([id number])[facility] ([facility])[address] [place] [address] Urea nitrogen [Mass/Vol] 10 mg/dL Normal 7-17 [facility] Comment on above: Performed By: #### L AB17, LAB99 ####Fermentation Operator: VITOR YULY ([id number])[facility] ([facility])[address] [place] [address] CT ABDOMEN PELVIS W CONTRAST on 10-31-2023 CT ABDOMEN PELVIS W CONTRAST Patient Name: CALLIE KENNEDY : 1970 Exam Date/Time: 10/31/2023 16:10 Procedure: CT ABDOMEN PELVIS W CONTRAST Ordering Provider: WREN MADISON Reason For Exam: RLQ abdominal pain, constipation, hx UC + multiple surgeries in abdomen CT ABDOMEN AND PELVIS WITH CONTRAST CLINICAL INDICATION: Abdominal pain. TECHNIQUE: Multi-axial 3mm sections through the abdomen and pelvis following 75 mL of Isoview contrast media. No oral contrast was administered. Coronal and sagittal reconstructions were reviewed. Dose reduction was employed with automated exposure control. COMPARISON: May 30, 2022. FINDINGS: Lower thorax: Normal. Stomach: Unremarkable. Liver: Normal size and contours. Normal hepatic parenchyma. No focal lesion. Biliary tree: Unremarkable gallbladder by CT. No biliary dilatation. Spleen: Normal. Adrenals: Normal. Pancreas: Normal. Kidneys: Symmetric contrast enhancement without evidence of hydronephrosis. No focal renal lesion is identified. Free air or fluid: None. Mesenteric/retroperitone al: No adenopathy or inflammation. Aorta: Normal caliber of aorta and bilateral common iliac arteries. Bowel: Increased fecal residue throughout the colon is suggestive of constipation. No small bowel inflammatory change or dilatation is noted. Urinary bladder: Unremarkable. Abdominal wall/soft tissues: No ventral hernia is evident. Pelvic organs/viscera: The uterus is present. Inguinal: No lymphadenopathy. Osseous structures: Unremarkable osseous structures. No suspicious osseous lesion. IMPRESSION: Increased fecal residue throughout the colon is suggestive of constipation. No small bowel inflammatory change or dilatation is noted. Report Dictated on Electronically Signed By: Timothy Lucero MD Electronically Signed Date/Time: 10/31/2023 4:32 PM EDT Pt presents with RLQ abd pain states started a few days ago. Pt with hx of ulcerative colitis. States has been having small BM and inflammation in abdomen. Pt states today is nausea and now not able to eat. Normal [facility] CT Abdomen and Pelvis W cont rast Ruth 10-31-2023 Increased fecal resi due throughout the colon is suggestive of constipation. No small bowel inflammatory change or dilatation is noted. Report Dictated on Electronically Signed By: Timothy Lucero MD Electronically Signed Date/Time: 10/31/2023 4:32 PM EDT [facility] Patient Name: CALLIE KENNEDY : 1970 Exam Date/Time: 10/31/2023 16:10 Procedure: CT ABDOMEN PELVIS W CONTRAST Ordering Provider: WREN MADISON Reason For Exam: RLQ abdominal pain, constipation, hx UC + multiple surgeries in abdomen CT ABDOMEN AND PELVIS WITH CONTRAST CLINICAL INDICATION: Abdominal pain. TECHNIQUE: Multi-axial 3mm sections through the abdomen and pelvis following 75 mL of Isoview contrast media. No oral contrast was administered. Coronal and sagittal reconstructions were reviewed. Dose reduction was employed with automated exposure control. COMPARISON: May 30, 2022. FINDINGS: Lower thorax: Normal. Stomach: Unremarkable. Liver: Normal size and contours. Normal hepatic parenchyma. No focal lesion. Biliary tree: Unremarkable gallbladder by CT. No biliary dilatation. Spleen: Normal. Adrenals: Normal. Pancreas: Normal. Kidneys: Symmetric contrast enhancement without evidence of hydronephrosis. No focal renal lesion is identified. Free air or fluid: None. Mesenteric/retroperitone al: No adenopathy or inflammation. Aorta: Normal caliber of aorta and bilateral common iliac arteries. Bowel: Increased fecal residue throughout the colon is suggestive of constipation. No small bowel inflammatory change or dilatation is noted. Urinary bladder: Unremarkable. Abdominal wall/soft tissues: No ventral hernia is evident. Pelvic organs/viscera: The uterus is present. Inguinal: No lymphadenopathy. Osseous structures: Unremarkable osseous structures. No suspicious osseous lesion. [facility] Timothy Lucero MD - 10/31/2023 [facility] 1970 [id number] Exam Date/Time: 10/31/2023 16:10 Procedure: CT ABDOMEN PELVIS W CONTRAST Ordering Provider: WREN MADISON Reason For Exam: RLQ abdominal pain, constipation, hx UC + multiple surgeries in abdomen CT ABDOMEN AND PELVIS WITH CONTRAST CLINICAL INDICATION: Abdominal pain. TECHNIQUE: Multi-axial 3mm sections through the abdomen and pelvis following 75 mL of Isoview contrast media. No oral contrast was administered. Coronal and sagittal reconstructions were reviewed. Dose reduction was employed with automated exposure control. COMPARISON: May 30, 2022. FINDINGS: Lower thorax: Normal. Stomach: Unremarkable. Liver: Normal size and contours. Normal hepatic parenchyma. No focal lesion. Biliary tree: Unremarkable gallbladder by CT. No biliary dilatation. Spleen: Normal. Adrenals: Normal. Pancreas: Normal. Kidneys: Symmetric contrast enhancement without evidence of hydronephrosis. No focal renal lesion is identified. Free air or fluid: None. Mesenteric/retroperitone al: No adenopathy or inflammation. Aorta: Normal caliber of aorta and bilateral common iliac arteries. Bowel: Increased fecal residue throughout the colon is suggestive of constipation. No small bowel inflammatory change or dilatation is noted. Urinary bladder: Unremarkable. Abdominal wall/soft tissues: No ventral hernia is evident. Pelvic organs/viscera: The uterus is present. Inguinal: No lymphadenopathy. Osseous structures: Unremarkable osseous structures. No suspicious osseous lesion. IMPRESSION: Increased fecal residue throughout the colon is suggestive of constipation. No small bowel inflammatory change or dilatation is noted. Report Dictated on Electronically Signed By: Timothy Lucero MD Electronically Signed Date/Time: 10/31/2023 4:32 PM EDT [facility] Radiology Study observation (narrative) [facility] CT Abdomen and Pelvis W cont rast IVOrdered By: Timothy Lucero on 10-31-2023 [facility] [employer] Work Phone: Comprehensive metabolic 1998 panelon 10-31-2023 Albumin [Mass/Vol] 4.3 g/dL 3.5 - 5.0 g/dL [facility] ALP [Catalytic activity/Vol] 107 U/L 38 - 126 U/L [facility] ALT [Catalytic activity/Vol] 26 U/L 0 - 34 U/L [facility] Anion gap [Moles/Vol] 10 mmol/L 3 - 13 mmol/L [facility] AST [Catalytic activity/Vol] 31 U/L 15 - 46 U/L [facility] Bilirubin [Mass/Vol] 0.4 mg/dL 0.2 - 1 .3 mg/dL [facility] Calcium [Mass/Vol] 9.3 mg/dL 8.4 - 10. 4 mg/dL [facility] Chloride [Moles/Vol] 104 mmol/L 98 - 10 7 mmol/L [facility] CO2 [Moles/Vol] 27 mmol/L 22 - 30 mmol/L [facility] Creatinine [Mass/Vol] 0.72 mg/dL 0.52 - 1.04 mg/dL [facility] GFR/1.73 sq M.predicted MDRD (S/P/Bld) [Vol rate/Area] - PINF [facility] Comment on above: Calculation based on the Chronic Kidney Disease Epidemiology Collaboration (CKD-EPI) equation refit without adjustment for race Glucose [Mass/Vol] 98 mg/dL 70 - 100 mg/dL [facility] Potassium [Moles/Vol] 3.8 mmol/L 3.5 - 5.1 mmol/L [facility] Protein [Mass/Vol] 7.5 g/dL 6.3 - 8.2 g/dL [facility] Sodium [Moles/Vol] 141 mmol/L 135 - 145 mmol/L [facility] Urea nitrogen [Mass/Vol] 10 mg/dL 7 - 17 mg/dL [facility] ED Nursing Noteon 10-31-2023 ED Nursing Note Pt presents with RLQ abd pain states started a few days ago. Pt with hx of ulcerative colitis. States has been having small BM and inflammation in abdomen. Pt states today is nausea and now not able to eat. Britni Heard RN 10/31/23 1341 Normal [facility] ED Provider Noteon ED Provider Note Emergency Department Encounter [facility] ED Patient: Callie Kennedy : 1970 Date of Evaluation: 10/31/2023 ED Supervising Physician: Nikunj Campos DO I personally saw Callie Kennedy and made/approved the management plan and take responsibility for the patient management. This will serve as my Supervisory note and shared attestation. I did perform a substantive portion of the visit including all aspects of the Medical Decision Making. I wore appropriate PPE for the entirety of this encounter. In brief, Callie Kennedy is a 53 y.o. that presents to the emergency department with right lower quadrant abdominal pain nausea vomiting. Feels like her ulcerative colitis is flaring up. Is not taking medications for ulcerative colitis, states she is trying to manage with diet. Patient has had prior appendectomy. No fevers or chills. Intermittent nausea and vomiting over the past 3 days as well. No bloody stool. Focused exam: Alert and oriented ?4, no acute distress, nontoxic appearing, Pulm: clear to auscultation bilaterally, Cardiac: regular rate and rhythm, Abdomen: soft mild right lower quadrant tenderness, Neuro: no focal motor or sensory deficits. Brief ED course/MDM: Patient presents with right lower quadrant tenderness palpation, concerned that her ulcerative colitis may be flaring up. Patient given Toradol Solu-Medrol Zofran and fluids, CT scan pelvis shows constipation. Abdominal lab work is benign. Possible early ulcerative colitis flare versus constipation. Recommend MiraLAX steroids for home and outpatient GI follow-up. Diagnostics interpreted by me: none I personally discussed the patient's management with other clinicians: none All diagnostic, treatment, and disposition decisions were made by myself in conjunction with the AKI[facility]. For all further details of the patient's emergency department visit, please see their documentation. (Comment: Please note this report has been produced using speech recognition software and may contain errors related to that system including errors in grammar, punctuation, and spelling, as well as words and phrases that may be inappropriate. If there are any questions or concerns please feel free to contact the dictating provider for clarification.) Nikunj Campos, [employer] Nikunj Campos DO 10/31/23 1753 [facility] ED Provider Note EMERGENCY DEPARTMENT ENCOUNTER Pt Name: Callie Kennedy Birthdate 1970 Date of evaluation: 10/31/2023 ED Provider: Ifeoma Wren PA-C CHIEF COMPLAINT Chief Complaint Patient presents with Abdominal Pain Nausea/ Vomiting x 2 days hx ulcerative colitis HISTORY OF PRESENT ILLNESS (Location/Symptom, Timing/Onset, Context/Setting, Quality, Duration, Modifying Factors, Severity) Note limiting factors. I wore appropriate PPE for the entirety of this encounter. HPI Callie Kennedy is a 53 y.o. female with PMH significant for ulcerative colitis who presents to the emergency department with her for evaluation of right lower quadrant abdominal pain. She states that for the last 2 to 3 weeks she has been dealing with constipation. She states that when she experiences UC flare she usually deals with intermittent constipation and vomiting that usually resolves with MiraLAX and Colace. States that she has been trying this for the last 2 to 3 weeks, but in the last 24 hours has noticed that her abdomen has become firm and increasingly tender to the right lower quadrant, and she experienced an episode of emesis this morning that lasted approximately 10 minutes. States that over the last 2 weeks she has been having small thin low volume stools, but denies bright red blood per rectum or blood in her stool. States that this morning all she was able to pass was liquid that she describes as watery from the rectum. States that she has had several surgeries within the abdomen including an appendectomy, multiple laparoscopies for stage V endometriosis, as well as a hysterectomy. Denies history of bowel obstruction. Nursing Notes were reviewed. Limitations to history: None Outside historians: None REVIEW OF SYSTEMS Review of Systems 14 systems reviewed, positives and pertinent negatives as per HPI. All other systems were reviewed and are negative. PAST MEDICAL HISTORY Past Medical History: Diagnosis Date Asthma Brachial plexus disorders DVT (deep vein thrombosis) in Neck sprain Pulmonary embolism (HCC) 2001 Shoulder sprain Ulcerative (chronic) enterocolitis (CMS/HCC) (HCC) SURGICAL HISTORY Past Surgical History: Procedure Laterality Date ANTERIOR COMPARTMENT DECOMPRESSION 2016 [place] APPENDECTOMY BREAST LUMPECTOMY 1991 x3 SECTION (HISTORICAL) 02/27/2002 twins ESOPHAGOGASTRODUODENOSCO PY N/A 06/01/2022 Dr Dejesus [facility] HYSTERECTOMY 03/23/2010 Louisa @ [facility] LAPAROSCOPY DIAGNOSTIC / BIOPSY / ASPIRATION / LYSIS 2003 [id number] Dr. Jasso @ [facility] & Dr. Jarvis @ [place], [place] SHOULDER ARTHROSCOPY Right 12/13/2018 Dr. Hernandez @ [facility] SHOULDER SURGERY Right 11/23/2019 RT shoulder manipulation Under Anes, SHRUTI @ [facility] TENDON RELEASE 05/28/[address] Patel @ [facility] TRIGGER FINGER RELEASE Right 2006 [facility] CURRENT MEDICATIONS Discharge Medication List as of 10/31/2023 4:50 PM CONTINUE these medications which have NOT CHANGED Details albuterol 108 (90 Base) MCG/ACT inhaler Inhale 2 puffs 4 times daily as needed., Starting Tue12/05/2017, Historical Med fluticasone (Flonase) 50 MCG/ACT nasal spray Administer 1 spray into each nostril daily., Starting Tue09/20/2022, Historical Med Lactobacillus Rhamnosus, GG, ( Probiotic Digestive Care) capsule Take 1 capsule by mouth in the morning., Starting Tue02/11/2020, Historical Med montelukast (Singulair) 10 MG tablet Take 10 mg by mouth daily., Starting Tue03/26/2022, Historical Med pantoprazole (ProtoNix) 40 MG EC tablet Take 1 tablet (40 mg) by mouth every morning (before breakfast). Do not crush, chew, or split. Do not start before June 04, 2022., Starting 06/04/2022, Until 06/04/2023, Normal traZODone (Desyrel) 100 MG tablet Take 100 mg by mouth Nightly as needed., Starting 05/24/2022, Historical Med venlafaxine XR (Effexor XR) 75 MG 24 hr capsule Take 75 mg by mouth daily., Starting 05/23/2022, Historical Med ALLERGIES Alera [hydroquinone], Cortisone, and Codeine FAMILY HISTORY Family History Problem Relation Name Age of Onset Heart disease Father Arthritis Mother Heart disease Mother SOCIAL HISTORY Social History Socioeconomic History Marital status: Tobacco Use Smoking status: Former Smokeless tobacco: Never Vaping Use Vaping Use: Never used Substance and Sexual Activity Alcohol use: Not Currently Drug use: Never Social Determinants of Health Housing Stability: Low Risk (05/31/2022) Housing Stability Vital Sign Unable to Pay for Housing in the Last Year: No Number of Places Lived in the Last Year: 1 Unstable Housing in the Last Year: No SCREENINGS PHYSICAL EXAM ED Triage Vitals [10/31/23 1341] Temp Heart Rate Resp BP 36.9 ?C (98.5 ?F) 90 16 (!) 147/91 SpO2 Temp Source Heart Rate Source Patient Position 99 % Temporal Cherelle (more content not included)... Normal [facility] LIPASEon 10-31-2023 Lipase [Catalytic activity/Vol] 77 U/L Normal 23-300 [facility] Comment on above: Performed By: #### L AB17, LAB99 ####Fermentation Operator: VITOR EMERY ([id number])[facility] ([facility])[address] [place] [address] Laboratory - Chemistry and C hemistry - challengeon 10-31-2023 Lipase [Catalytic activity/Vol] 77 U/L 23 - 300 U/L [facility] No Panel Informationon 10-30 Interpretation and review of laboratory results Normal [facility] Urinalysis complete panel (U )on 10-31-2023 Bilirubin Ql (U) Negative Negative mg/dL [facility] Clarity (U) Clear Clear [facility] Color (U) Colorless Lt. Yellow [facility] Glucose Ql (U) Normal Normal (<70) mg/dL [facility] Hemoglobin Ql (U) Negative Negative mg/dL [facility] Interpretation and review of laboratory results Normal [facility] Ketones (U) [Mass/Vol] Negative Negative mg/dL [facility] Leukocyte esterase Test strip Ql (U) Negative Negative Linus/uL [facility] Nitrite Ql (U) Negative Negative [facility] th pH (U) 8.0 [pH] 5.0 - 8.0 pH [facility] Protein (U) [Mass/Vol] Negative Negative mg/dL [facility] Specific gravity (U) [Rel density] 1.011 1.005 - 1.030 [facility] Urobilinogen (U) [Mass/Vol] Normal Normal (0-1) mg/dL [facility] Laboratory - Microbiology an d Antimicrobial susceptibilityon 08-02-2023 FLUAV RNA ASHLEE+probe Ql (Resp) Not detected Not Detected [facility] FLUBV RNA ASHLEE+probe Ql (Resp) Not detected Not Detected [facility] RSV RNA ASHLEE+probe Ql (Resp) Not detected Not Detected [facility] SARS-CoV-2 (COVID-19) RNA ASHLEE+probe Ql (Resp) Not detected Not Detected [facility] SARS-CoV-2 (COVID-19) RNA ASHLEE+probe Ql (Unsp spec) Methodology: real-time, RT-PCR The SARS-CoV-2, Flu A/B, and RSV Combo assay is intended for in vitro diagnostic use under the FDA Emergency Use Authorization (EUA). This test has not been FDA cleared or approved. In compliance with this authorization, please visit www.fda.gov/media/039487 /download or www.fda.gov/media/096001 /download to access the applicable information sheets. [facility] No Panel Informationon 08-02 P Willow 49 degrees [facility] AR Interval 145 ms [facility] QRS Willow 73 degrees [facility] QRSD Interval 72 ms [facility] QT Interval 363 ms [facility] QTC Interval 435 ms [facility] T Wave Willow 53 degrees [facility] Sinus rhythm Electronically Signed On 08-02-2023 17:58:27 EST by Niles Christopher CV Niles Buckley MD - 08/02/2023 IMPRESSION: Sinus rhythm Electronically Signed On 08-02-2023 17:58:27 EST by Niles Christopher [facility] S. pyogenes DNA ASHLEE+probe No m (Unsp spec)on 08-02-2023 Group A Strep Screen Not detected Not Detected [facility] Interpretation and review of laboratory results Normal [facility] Methodology: real-ti me PCR [facility] SARS-CoV-2, Flu A/B, and RSV Comboon 08-02-2023 Interpretation and review of laboratory results Normal [facility] Vital signson 08-02-2023 Heart rate 86 /min bpm [facility] XR Chest Single viewon 08-02 Lines, tubes, and devices: None. Lungs and pleura: No consolidation. No pleural effusion or pneumothorax. Cardiomediastinal silhouette: Normal cardiomediastinal silhouette. Other: Bony thorax appears grossly intact. Surgical clips project over the right upper chest. Suture anchor of the right humerus. Report Dictated on Electronically Signed By: Black Hernandez MD Electronically Signed Date/Time: 08/02/2023 3:19 PM [facility] Patient Name: CALLIE KENNEDY : 1970 Exam Date/Time: 08/02/2023 15:12 Procedure: XR CHEST 1 VIEW Ordering Provider: CHRISTOPHER NICHOLAS Reason For Exam: cough EXAMINATION: CHEST RADIOGRAPH (SINGLE VIEW AP OR PA) Clinical History: cough Comparison: Radiograph 10/20/2022 RESULT: See impression [facility] Black Hernandez MD - 08/02/2023 Patient Name: CALLIE KENNEDY : 1970 Exam Date/Time: 08/02/2023 15:12 Procedure: XR CHEST 1 VIEW Ordering Provider: CHRISTOPHER NICHOLAS Reason For Exam: cough EXAMINATION: CHEST RADIOGRAPH (SINGLE VIEW AP OR PA) Clinical History: cough Comparison: Radiograph 10/20/2022 RESULT: See impression IMPRESSION: Lines, tubes, and devices: None. Lungs and pleura: No consolidation. No pleural effusion or pneumothorax. Cardiomediastinal silhouette: Normal cardiomediastinal silhouette. Other: Bony thorax appears grossly intact. Surgical clips project over the right upper chest. Suture anchor of the right humerus. Report Dictated on Electronically Signed By: Black Hernandez MD Electronically Signed Date/Time: 08/02/2023 3:19 PM EST [facility] Radiology Study observation (narrative) [facility] [employer] XR Chest Single viewOrdered By: Black Hernandez on 08-02-2023 [facility] [employer] Work Phone: XR Thoracic spine AP and Lat eralon 07-18-2023 [facility] XR Foot - left 3 Viewson FINDINGS/IMPRESSION: Limitations: No significant limitations. No acute fracture or dislocation. Mild to moderate degenerative changes involving the first MTP joint with suspected soft tissue bunion medially. Accessory ossicle adjacent to the cuboid. Report Dictated on Electronically Signed By: Garth Chi MD Electronically Signed Date/Time: 07/15/2023 9:02 PM [facility] Patient Name: CALLIE KENNEDY : 1970 Exam Date/Time: 07/15/2023 20:53 Procedure: XR FOOT 3+ VIEWS LEFT Ordering Provider: BAI RACHEL Reason For Exam: foot pain LEFT FOOT: CLINICAL INDICATION: Left foot pain. TECHNIQUE: AP, Lat, Oblique COMPARISON: None. [facility] Litzy Chi MD - 07/15/2023 Patient Name: CALLIE KENNEDY : 1970 Exam Date/Time: 07/15/2023 20:53 Procedure: XR FOOT 3+ VIEWS LEFT Ordering Provider: BAI RACHEL Reason For Exam: foot pain LEFT FOOT: CLINICAL INDICATION: Left foot pain. TECHNIQUE: AP, Lat, Oblique COMPARISON: None. IMPRESSION: FINDINGS/IMPRESSION: Limitations: No significant limitations. No acute fracture or dislocation. Mild to moderate degenerative changes involving the first MTP joint with suspected soft tissue bunion medially. Accessory ossicle adjacent to the cuboid. Report Dictated on Electronically Signed By: Garth Chi MD Electronically Signed Date/Time: 07/15/2023 9:02 PM EST [facility] Radiology Study observation (narrative) [facility] XR Foot - left 3 ViewsOrdere d By: Litzy Chi on 07-15-2023 [facility] [employer] Work Phone: Urinalysis complete panel (U )Ordered By: Tino Brooks on 05-30-2023 Bacteria LM.HPF (Urine sed) [#/Area] Moderate Abnormal Negative /HPF [facility] Bilirubin Ql (U) Negative Negative mg/dL [facility] Clarity (U) Clear Clear [facility] Color (U) Colorless Lt. Yellow [facility] Epithelial cells.squamous LM.HPF (Urine sed) [#/Area] 6-10 Abnormal [facility] Glucose Ql (U) Normal Normal (<70) mg/dL [facility] Hemoglobin Ql (U) Negative Negative mg/dL [facility] Interpretation and review of laboratory results Abnormal [facility] Ketones (U) [Mass/Vol] Negative Negative mg/dL [facility] Leukocyte esterase Test strip Ql (U) 75 Abnormal Negative Linus/uL [facility] Nitrite Ql (U) Negative Negative [facility] th pH (U) 6.5 [pH] 5.0 - 8.0 pH [facility] Protein (U) [Mass/Vol] Negative Negative mg/dL [facility] RBC LM.HPF (Urine sed) [#/Area] 0-2 [facility] Specific gravity (U) [Rel density] 1.007 1.005 - 1.030 [facility] Urobilinogen (U) [Mass/Vol] Normal Normal (0-1) mg/dL [facility] WBC LM.HPF (Urine sed) [#/Area] 6-10 Abnormal [facility] US Thyroid glandon 3 Impression: Multiple bilateral thyroid nodules as described above. One of these is a extrathyroidal and may represent a parathyroid gland. Recommendations: Follow-up ultrasound in one year. *TIRADS Risk for malignancy: TI-RADS 1 - 0 points - (benign) <2% risk TI-RADS 2 - 2 points - (not suspicious) <5% TI-RADS 3 - 3 points - (mildly suspicious) <5% - FNA when >/= 2.5cm. Follow when >1.5cm at 1, 3 and 5 years TI-RADS 4 - 4-6 points - (moderately suspicious) 5-20% - FNA when >/= 1.5cm. Follow when >1cm at 1, 2, 3 and 5 years TI-RADS 5 - 7+ points - (highly suspicious) >20% - FNA when >/= 1cm. Follow when >0.5cm every year for up to 5 years TI-RADS (2017) Reference: Carolin Anderson ACR Thyroid Imaging, Reporting and Data System (TI-RADS): White Paper of the ACR TI RADS Committee. J Am [employer]. September 2016 Report Dictated on Electronically Signed By: Fabiana Magaña MD Electronically Signed Date/Time: 01/30/2023 3:19 PM T [facility] Patient Name: CALLIE KENNEDY : 1970 Exam Date/Time: 01/28/2023 11:41 Procedure: US THYROID Ordering Provider: SANCHEZ ELIZABETH Reason For Exam: E04.1 Exam type: Ultrasound thyroid. CLINICAL INDICATION: Thyroid nodule seen on prior CT COMPARISON: None. TECHNIQUE: Grayscale sonographic images were obtained of the thyroid. Color Doppler was utilized. FINDINGS: Right Lobe: Echotexture: Diffusely heterogeneous Size: 1.7 x 2.2 x 5.5 cm. Left Lobe: Echotexture: Diffusely heterogeneous Size: 2.1 x 2.0 x 5.1 cm. Isthmus: Two millimeters in thickness. Thyroid nodules are as follows: Location: Right lower lobe Size: 0.5 at 0.5 x 0.6 cm Composition: Solid Echogenicity: Isoechoic Margins: Extra thyroidal Calcifications: None Level of suspicion: TI-RADS* 4: Moderately Suspicious (5-20% chance of malignancy) ACR Recommendation: No additional follow-up recommended. Comparison to prior exam: Not applicable Location: Right upper pole Size: 0.9 x 1.2 x 1.1 cm Composition: Solid Echogenicity: Hypoechoic Margins: Ill-defined Calcifications: None Level of suspicion: TI-RADS* 4: Moderately Suspicious (5-20% chance of malignancy) ACR Recommendation: Follow-up ultrasound in one year Comparison to prior exam: Not applicable Location: Left lower pole Size: 1.1 x 0.9 x 1.3 cm Composition: Solid Echogenicity: Hypoechoic Margins: Ill-defined Calcifications: None Level of suspicion: TI-RADS* 4: Moderately Suspicious (5-20% chance of malignancy) ACR Recommendation: Follow-up ultrasound in one year. Comparison to prior exam: Not applicable Location: Left lower pole Size: 0.7 x 0.6 x 0.9 cm Composition: Solid Echogenicity: Hypoechoic Margins: Well-defined Calcifications: Macrocalcification Level of suspicion: TI-RADS* 4: Moderately Suspicious (5-20% chance of malignancy) ACR Recommendation: No additional follow-up needed. Comparison to prior exam: Not applicable Cervical Lymph nodes: No abnormal cervical lymph nodes identified. [facility] Gauri Magaña MD - 01/30/2023 [facility] 1970 [id number] Exam Date/Time: 01/28/2023 11:41 Procedure: US THYROID Ordering Provider: SANCHEZ ELIZABETH Reason For Exam: E04.1 Exam type: Ultrasound thyroid. CLINICAL INDICATION: Thyroid nodule seen on prior CT COMPARISON: None. TECHNIQUE: Grayscale sonographic images were obtained of the thyroid. Color Doppler was utilized. FINDINGS: Right Lobe: Echotexture: Diffusely heterogeneous Size: 1.7 x 2.2 x 5.5 cm. Left Lobe: Echotexture: Diffusely heterogeneous Size: 2.1 x 2.0 x 5.1 cm. Isthmus: Two millimeters in thickness. Thyroid nodules are as follows: Location: Right lower lobe Size: 0.5 at 0.5 x 0.6 cm Composition: Solid Echogenicity: Isoechoic Margins: Extra thyroidal Calcifications: None Level of suspicion: TI-RADS* 4: Moderately Suspicious (5-20% chance of malignancy) ACR Recommendation: No additional follow-up recommended. Comparison to prior exam: Not applicable Location: Right upper pole Size: 0.9 x 1.2 x 1.1 cm Composition: Solid Echogenicity: Hypoechoic Margins: Ill-defined Calcifications: None Level of suspicion: TI-RADS* 4: Moderately Suspicious (5-20% chance of malignancy) ACR Recommendation: Follow-up ultrasound in one year Comparison to prior exam: Not applicable Location: Left lower pole Size: 1.1 x 0.9 x 1.3 cm Composition: Solid Echogenicity: Hypoechoic Margins: Ill-defined Calcifications: None Level of suspicion: TI-RADS* 4: Moderately Suspicious (5-20% chance of malignancy) ACR Recommendation: Follow-up ultrasound in one year. Comparison to prior exam: Not applicable Location: Left lower pole Size: 0.7 x 0.6 x 0.9 cm Composition: Solid Echogenicity: Hypoechoic Margins: Well-defined Calcifications: Macrocalcification Level of suspicion: TI-RADS* 4: Moderately Suspicious (5-20% chance of malignancy) ACR Recommendation: No additional follow-up needed. Comparison to prior exam: Not applicable Cervical Lymph nodes: No abnormal cervical lymph nodes identified. IMPRESSION: Impression: Multiple bilateral thyroid nodules as described above. One of these is a extrathyroidal and may represent a parathyroid gland. Recommendations: Follow-up ultrasound in one year. *TIRADS Risk for malignancy: TI-RADS 1 - 0 points - (benign) <2% risk TI-RADS 2 - 2 points - (not suspicious) <5% TI-RADS 3 - 3 points - (mildly suspicious) <5% - FNA when >/= 2.5cm. Follow when >1.5cm at 1, 3 and 5 years TI-RADS 4 - 4-6 points - (moderately suspicious) 5-20% - FNA when >/= 1.5cm. Follow when >1cm at 1, 2, 3 and 5 years TI-RADS 5 - 7+ points - (highly suspicious) >20% - FNA when >/= 1cm. Follow when >0.5cm every year for up to 5 years TI-RADS (2017) Reference: Sobia Anderson. ACR Thyroid Imaging, Reporting and Data System (TI-RADS): White Paper of the ACR TI RADS Committee. [facility]. September 2016 Report Dictated on Electronically Signed By: Fabiana Magaña MD Electronically Signed Date/Time: 01/30/2023 3:19 PM EDT [facility] Thyroid glandOrdered By: Gauri Magaña on 01-30-2023 [facility] Work Phone: XR Cervical spine 4 or 5 Vie wson 01-30-2023 Impression: No acute osseous abnormality of the cervical spine. Report Dictated on Electronically Signed By: Naeem Trevino DO Electronically Signed Date/Time: 01/30/2023 9:31 AM EDT [facility] Patient Name: CALLIE KENNEDY : 1970 Exam Date/Time: 01/28/2023 12:04 Procedure: XR CERVICAL SPINE COMPLETE 4-5 VIEWS Ordering Provider: GRACE HANNAH Reason For Exam: m54.2 CERVICAL SPINE SERIES: INDICATION: Neck pain COMPARISON: No prior studies are available for comparative purposes. TECHNIQUE: Five films are submitted for interpretation, including bilateral oblique views. FINDINGS: Alignment, curvature and segmentation of the cervical spine are within normal limits. The prevertebral soft tissues are unremarkable. There is no evidence of acute fracture, dislocation or subluxation. Disc space height is well-preserved. AP and open mouth odontoid views are grossly unremarkable. [facility] Naeem Trevino DO - 01/30/2023 Patient Name: CALLIE KENNEDY : 1970 Exam Date/Time: 01/28/2023 12:04 Procedure: XR CERVICAL SPINE COMPLETE 4-5 VIEWS Ordering Provider: GRACE HANNAH Reason For Exam: m54.2 CERVICAL SPINE SERIES: INDICATION: Neck pain COMPARISON: No prior studies are available for comparative purposes. TECHNIQUE: Five films are submitted for interpretation, including bilateral oblique views. FINDINGS: Alignment, curvature and segmentation of the cervical spine are within normal limits. The prevertebral soft tissues are unremarkable. There is no evidence of acute fracture, dislocation or subluxation. Disc space height is well-preserved. AP and open mouth odontoid views are grossly unremarkable. IMPRESSION: Impression: No acute osseous abnormality of the cervical spine. Report Dictated on Electronically Signed By: Naeem Trevino DO Electronically Signed Date/Time: 01/30/2023 9:31 AM EDT [facility] XR Cervical spine 4 or 5 Vie wsOrdered By: Naeem Trevino on 01-30-2023 [facility] Work Phone: XR Lumbar spine Views W flex ion and W extensionon 01-30-2023 No acute osseous abnormality of the lumbar spine. Report Dictated on Electronically Signed By: Dede Flores DR Electronically Signed Date/Time: 01/30/2023 1:41 PM EDT [facility] Patient Name: CALLIE KENNEDY : 1970 Exam Date/Time: 01/28/2023 12:04 Procedure: XR LUMBAR SPINE 4-5 VIEW Ordering Provider: GRACE HANNAH Reason For Exam: [id number] CLINICAL HISTORY: m54.50 COMPARISON: None Technique: AP, lateral, and a spot lateral view of the L5-S1 level was obtained. Additionally, bilateral oblique views were obtained. FINDINGS: There are 5 non-rib bearing lumbar type vertebral bodies. The normal lumbar lordosis is maintained with no significant subluxation. Vertebral body heights remain preserved without evidence of an acute compression fracture. No significant degenerative disc space loss or endplate osteophytosis. No significant facet arthropathy. SI joints are within normal limits. Surgical clips are present overlying the right sacroiliac joint. [facility] Dede Flores MD - 01/30/2023 Patient Name: CALLIE KENNEDY : 1970 Exam Date/Time: 01/28/2023 12:04 Procedure: XR LUMBAR SPINE 4-5 VIEW Ordering Provider: GRACE HANNAH Reason For Exam: [id number] CLINICAL HISTORY: m54.50 COMPARISON: None Technique: AP, lateral, and a spot lateral view of the L5-S1 level was obtained. Additionally, bilateral oblique views were obtained. FINDINGS: There are 5 non-rib bearing lumbar type vertebral bodies. The normal lumbar lordosis is maintained with no significant subluxation. Vertebral body heights remain preserved without evidence of an acute compression fracture. No significant degenerative disc space loss or endplate osteophytosis. No significant facet arthropathy. SI joints are within normal limits. Surgical clips are present overlying the right sacroiliac joint. IMPRESSION: No acute osseous abnormality of the lumbar spine. Report Dictated on Electronically Signed By: Dede Flores DR Electronically Signed Date/Time: 01/30/2023 1:41 PM EDT [facility] XR Lumbar spine Views W flex ion and W extensionOrdered By: Dede Flores on 01-30-2023 [facility] Work Phone: No Panel Informationon 01-28 Radiology Study observation (narrative) [facility] US Thyroid glandon Radiology Study observation (narrative) [facility] Free T3 [Mass/Vol]on 023 Interpretation and review of laboratory results Normal [facility] Free T4 [Mass/Vol]on 023 Free T4 Dialysis [Mass/Vol] 0.92 ng/dL 0.78 - 2.19 ng/dL [facility] Interpretation and review of laboratory results Normal [facility] T3, freeon 12-24-2022 Free T3 [Mass/Vol] 4.05 pg/mL 2.77 - 5. 27 pg/mL [facility] TSHon 12-24-2022 TSH Qn 1.487 m[IU]/L [facility] h TSH Qnon 12-24-2022 Interpretation and review of laboratory results Normal [facility] UA DIP, URINE (POC)on 2022 BILIRUBIN UA (POCT) Negative Negative [facility] CLARITY UA (POCT) Clear [facility] COLOR UA (POCT) Yellow [facility] GLUCOSE UA (POCT) Negative Negative mg/dL [facility] HEMOGLOBIN/BLOOD UA (POCT) Trace-intact Abnormal Negative [facility] KETONE UA (POCT) Negative Negative mg/dL [facility] LEUKOCYTES UA (POCT) Small Abnormal [facility] NIT[facility] ([facility]) [facility] PH UA (POCT) 6.0 4.5 - 8.0 [facility] Protein Ql (U) Negative Negative mg/dL [facility] SPECIFIC GRAVITY UA (POCT) 1.010 1.005 - 1.030 [facility] UROBILINOGEN UA (POCT) 0.2 E.U./dL Normal E.U./dL [facility] CNOVon 09-20-2022 CNOV Office Visit ([facility] ) -------- CALLIE KENNEDY ([id number]) 1970 F T Date Time Provider Department 09/20/22 8:20 PM ISHAN TOMLIN [facility] During your visit today, we recorded the following information about you: Temperature Pulse Respiration Blood pressure 99.1 degrees 98/minute 16/minute 145/77 Weight 69.9 kg Ishan Tomlin APRN.VINYL CUTTER 09/20/2022 8:46 PM Signed HPI: Callie Godfrey Kennedy is a 52 year old female who presents with GERARD, sinus pain/pressure/drainage, r eye erythema, R ear fullness, sore throat, and productive cough of yellow/green sputum x 8 weeks. She did not seek tx for this d/t lack of insurance. She denies fever, chills, CP, SOB, and tonsillar erythema/exudates. She has tried Singulair, Benadryl, Mucinex, Dayquil/Nyquil all with little relief. 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 Had thoracic outlet decompression surgery on the right in 2017 PMH - PAST MEDICAL HISTORY OF right shoulder work injury, resolving with Physical Therapy and pain management Pulmonary embolism (HCC) 06/06/2001 sister has a clotting disorder but patient wasn't tested. This occured when she was on bedrest with twins developed bilateral DVT, then PE. Was on heparin until they were born (delivered at 30 weeks) was on an oral blood thinner for six months and then was taken off Regional enteritis of unspecified site Crohn disease TOS (thoracic outlet syndrome) ACTIVE PROBLEM LIST Multinodular Goiter Colitis Severe Protein-Calorie Malnutrition (Hcc) Personal History of Nicotine Dependence Irritable Bowel Syndrome Pectoralis Minor Syndrome (Hcc) Pulmonary Embolism (Hcc) Current Outpatient Medications Medication Sig Dispense Refill traZODone (DESYREL) 100 mg tablet Take 100 mg by mouth at bedtime as needed. For Insomnia venlafaxine ER (EFFEXOR XR) 75 mg 24 hr capsule Take 75 mg by mouth once daily. montelukast (SINGULAIR) 10 mg tablet Take 1 tablet by mouth once daily. 90 tablet 3 albuterol HFA (PROVENTIL HFA, VENTOLIN HFA) 90 mcg/actuation inhaler Inhale 2 Puffs as instructed every 6 hours. 1 Inhaler 11 ibuprofen (MOTRIN) 600 mg tablet Take 1 tablet by mouth every 6 hours as needed for Pain. Take with food. 60 tablet 3 amoxicillin-clavulanic acid (AUGMENTIN) 875-125 mg per tablet Take 1 tablet by mouth every 12 hours for 10 days. 20 tablet 0 Brompheniramine-Pseudoep h-DM (BROMFED DM) 2-30-10 mg/5 mL syrup Take 10 mL by mouth four times daily as needed for up to 7 days. 473 mL 0 fluticasone (FLONASE ALLERGY RELIEF) 50 mcg/actuation nasal spray Use 1 [place] in each nostril once daily. 9.9 mL 0 balsalazide (COLAZAL) 750 mg capsule Take 3 capsules by mouth three times daily. 270 capsule 1 No current facility-administered medications for this visit. Social History Tobacco Use Smoking status: Former Packs/day: 1.00 Years: 10.00 Pack years: 10.00 Types: Cigarettes Quit date: 07/11/2004 Years since quittin.2 Smokeless tobacco: Never Vaping Use Vaping Use: Never used Substance Use Topics Alcohol use: No Comment: rarely Drug use: No Alcohol Use: No (rarely) Tobacco Use: 1 packs/day, for 10 years. Quit 07/11/2004. Types: Cigarettes FAMILY HISTORY Problem Relation Age of Onset Diabetes Maternal Grandfather Cancer Maternal Grandmother Breast Cancer Paternal Grandmother unaware of history, pt.is Colon Cancer Paternal Grandfather Heart Mother Heart Father Breast Cancer Sister 04/2009 pt dx after,nipple discharge ,color change, most recedtly stopped breast feeding, tx plan, started pending pathology Review of Systems Constitutional: Negative. HENT: Positive for congestion, ear pain, sinus pain and sore throat. Negative for ear discharge, hearing loss, nosebleeds and tinnitus. Eyes: Positive for redness. Respiratory: Positive for cough and sputum production. Negative for hemoptysis, shortness of breath, wheezing and stridor. Cardiovascular: Negative. Gastrointestinal: Negative. Genitourinary: Negative. Musculoskeletal: Negative. Skin: Negative. Neurological: Negative. Endo/Heme/Allergies: Negative. Psychiatric/Behavioral: Negative. All other systems reviewed and are negative. BP 145/77 Pulse 98 Temp 99.1 Resp 16 Wt 154 lb (69.9kg) SpO2 98% (more content not included)... Normal [facility] Absolute lymphocyte counton 03-26-2022 Lymphocytes Auto (Unsp spec) [#/Vol] 2.19 10*3/uL 0.83-4.51 [facility] Work Phone: Basophil percentageon 2021 Basophils/100 WBC (Bld) 0.4 % 0-1 [facility] Work Phone: Bilirubin [Mass/Vol] 0.30 mg/dL 0.20-1.00 [facility] Work Phone: Comment on above: For patients on eltr ombopag therapy, use of Dimension [place] TBIL is not recommended. Chloride [Moles/Vol] 106 mmol/L 98-[address] [facility] Work Phone: Cholesterol [Mass/Vol] 265 mg/dL <200 [facility] Work Phone: [phone] Comment on above: <200 mg/dL Desirable 200-240 mg/dL Borderline >240 mg/dL High Risk Eosinophils/100 WBC (Bld) 0.5 % 0-5 [facility] Work Phone: [phone] Glucose [Mass/Vol] 102 mg/dL 74-106 [facility] Work Phone: Comment on above: Fasting Glucose resu lt from 100 to 125 mg/dL suggests IMPAIRED HOMEOSTASIS per A.D.A. criteria. Neutrophils (Bld) [#/Vol] 6.3 10*3/uL 2.0-7.7 [facility] Work Phone: [phone] Neutrophils/100 WBC (Bld) 68.8 % 47-70 [facility] Work Phone: [phone] Potassium [Moles/Vol] 4.0 mmol/L 3.5-5.1 [facility] Work Phone: [phone] Protein [Mass/Vol] 6.5 g/dL 6.4-8.2 [facility] Work Phone: [phone] Sodium [Moles/Vol] 141 mmol/L 136-145 [facility] Work Phone: [phone] Triglyceride [Mass/Vol] 212 mg/dL <199 [facility] Work Phone: Comment on above: The drugs N-Acetylcy steine and Metamizole may falsely depress this assay.Serum Triglycerides Reference Interval Normal <150 mg/dL Borderline high 150 - 199 mg/dL High 200 - 499 mg/dL Very High > or = 500 mg/dL WBC (Bld) [#/Vol] 9.2 10*3/uL 4.4-11.0 [facility] Work Phone: Blood erythrocytes count (nu mber/volume)on 03-26-2022 RBC (Bld) [#/Vol] 4.71 10*6/uL 4.2-5.4 [facility] Work Phone: Blood hemoglobin measurement (mass/volume)on 03-26-2022 Hemoglobin (Bld) [Mass/Vol] 14.1 g/dL 12.0-15.0 [facility] Work Phone: Blood lymphocytes/100 leukoc yteson 03-26-2022 Lymphocytes/100 WBC (Bld) 23.9 % 19-41 [facility] Work Phone: [phone] Blood monocytes/100 leukocyt eson 03-26-2022 Monocytes/100 WBC (Bld) 6.0 % 0-10 [facility] Work Phone: [phone] Blood platelet mean volumeon 03-26-2022 Platelet mean volume (Bld) [Entitic vol] 10.6 fL 6.2-12.0 [facility] Work Phone: Determination of erythrocyte mean corpuscular volume (MCV)on 03-26-2022 MCV (RBC) [Entitic vol] 89.0 fL 81-99 [facility] Work Phone: [phone] Hematocrit Auto (Bld) [Volum e fraction]on 03-26-2022 Hematocrit (Bld) [Volume fraction] 41.9 % 37-47 [facility] Work Phone: Laboratory - Chemistry and C hemistry - challengeon 03-26-2022 ALP [Catalytic activity/Vol] 74 U/L 45-117 [facility] Work Phone: [phone] ALT [Catalytic activity/Vol] 27 U/L 13-56 [facility] Work Phone: [phone] CO2 [Moles/Vol] 32.0 mmol/L 21.0-32.0 [facility] Work Phone: [phone] Free T4 [Mass/Vol] 0.82 ng/dL 0.76-1.46 [facility] Work Phone: [phone] Globulin (S) [Mass/Vol] 3.3 g/dL 2.2-4.2 [facility] Work Phone: [phone] Urea nitrogen/Creatinine [Mass ratio] 12.6 mg/mg 10- [facility] Work Phone: Laboratory - Hematology and Cell countson 03-26-2022 Erythrocyte distribution width (RBC) [Entitic vol] 38.8 fL 35.1-43.9 [facility] Work Phone: [phone] Erythrocyte distribution width (RBC) [Ratio] 11.9 % 11.6-14.6 [facility] Work Phone: [phone] Immature granulocytes/100 WBC (Bld) 0.400 % 0.0-0.9 [facility] Work Phone: [phone] Comment on above: IG% - Immature Granu locytes (promyelocytes, myelocytes and metamyelocytes) > 1% indicates that a LEFT SHIFT is Present. MCH (RBC) [Entitic mass] 29.9 pg 27.0-32.0 [facility] Work Phone: Nucleated RBC/100 WBC (Bld) [Ratio] 0 % 0-5 [facility] Work Phone: MCHC Auto (RBC) [Mass/Vol]on 03-26-2022 MCHC (RBC) [Mass/Vol] 33.7 g/dL 32-36 [facility] Work Phone: No Panel Informationon 03-26 Estimated GFR (MDRD) Amer 98 mL/min >60 [facility] Work Phone: Comment on above: GFR Calc Estimated GFR (MDRD) Non-Af Amer 81 mL/min >60 [facility] Work Phone: Comment on above: Non- GFR Calc Thyroid Stimulating Hormone (TSH) 0.59 uIU/mL 0.358-3.74 [facility] Work Phone: Platelets bldon 03-26-2022 Platelets (Bld) [#/Vol] 347 10*3/uL 150-450 [facility] Work Phone: Serum or plasma albumin laura urement (mass/volume)on 03-26-2022 Albumin [Mass/Vol] 3.2 g/dL 3.2-5.0 [facility] Work Phone: [phone] Serum or plasma albumin/glob ulin mass ratioon 03-26-2022 Albumin/Globulin [Mass ratio] 1.0 {ratio} 0.9-2.4 [facility] Work Phone: [phone] Serum or plasma calcium laura urement (mass/volume)on 03-26-2022 Calcium [Mass/Vol] 8.8 mg/dL 8.5-10.1 [facility] Work Phone: [phone] Serum or plasma cholesterol in HDL measurement (mass/volume)on 03-26-2022 Cholesterol in HDL [Mass/Vol] 52 mg/dL >40 [facility] Work Phone: Comment on above: The drugs N-Acetylcy steine and Metamizole may falsely depress this assay. Reference Range HDL <40 mg/dL Low HDL Cholesterol HDL >or= 60 mg/dL High HDL Cholesterol Serum or plasma cholesterol in VLDL measurement (mass/volume)on 03-26-2022 Cholesterol in VLDL [Mass/Vol] 42 mg/dL 5-40 [facility] Work Phone: [phone] Serum or plasma creatinine m easurement (mass/volume)on 03-26-2022 Creatinine [Mass/Vol] 0.80 mg/dL 0.55-1.02 [facility] Work Phone: Comment on above: The validity of the calculated GFR & GFRAA in patients over 70 years has not been determined. Clinical correlation is essential. Serum or plasma low density lipoprotein (LDL) cholesterol measurement (mass/volume)on 03-26-2022 Cholesterol in LDL [Mass/Vol] 171 mg/dL 0-130 [facility] Work Phone: [phone] Serum or plasma urea nitroge n measurement (mass/volume)on 03-26-2022 Urea nitrogen [Mass/Vol] 10 mg/dL 7-18 [facility] Work Phone: [phone] Thin prep Papanicolaou smear with manual screeningon 03-26-2022 Thin prep Papanicolaou smear with manual screening 22 U/L 15-37 [facility] Work Phone: [phone] Thin prep Papanicolaou smear with manual screening 3 5-15 [facility] Work Phone: CBC W/DIFFon 11-14-2021 BASO ABS 0.00 K/CU MM Normal 0-0.2 [facility] Comment on above: Performed By: #### L [id number], [id number] #### LABORATORY [address] [place] [address] Basophils/100 WBC (Bld) 0.3 % Normal 0-2 [facility] Comment on above: Performed By: #### L [id number], [id number] #### LABORATORY [address] [place] [address] EOS ABS 0.10 K/CU MM Normal 0-0.5 [facility] Comment on above: Performed By: #### L 200.32110, [id number] #### LABORATORY [address] [place] [address] Eosinophils/100 WBC (Bld) 1.8 % Normal 0-5 [facility] Comment on above: Performed By: #### L 200.34763, [id number] #### LABORATORY [address] [place] [address] Erythrocyte distribution width (RBC) [Ratio] 12.2 % Normal 11-14.5 [facility] Comment on above: Performed By: #### L 200.77134, [id number] #### LABORATORY [address] [place] [address] Hematocrit (Bld) [Volume fraction] 37.3 % Normal 35.0-47.0 [facility] Comment on above: Performed By: #### L 200.91345, [id number] #### LABORATORY [address] [place], [place] [id number] Hemoglobin (Bld) [Mass/Vol] 12.5 g/dL Normal 11.5-15.5 [facility] Comment on above: Performed By: #### L 200.42079, [id number] #### LABORATORY [address] [place] [address] IMMATR GRAN ABS 0.00 K/CU MM Normal Less than 2 [facility] Comment on above: Performed By: #### L 200.06669, [id number] #### LABORATORY [address] [place] [address] IMMATURE GRAN % 0.3 % Normal Less than 2 [facility] Comment on above: Performed By: #### L 200.96716, L200.55914 #### LABORATORY [address] [place] [address] LYMPH ABS 2.30 K/CU MM Normal 0.9-4.4 [facility] Comment on above: Performed By: #### L 200.34089, L200.78873 #### LABORATORY [address] [place] [address] Lymphocytes/100 WBC (Bld) 37.7 % Normal 20-40 [facility] Comment on above: Performed By: #### L 200.31426, L200.46182 #### LABORATORY [address] [place] [address] MCHC (RBC) [Mass/Vol] 33.5 g/dL Normal 32.0-36.0 [facility] Comment on above: Performed By: #### L 200.28538, L200.29474 #### LABORATORY [address] [place] [address] MCV (RBC) [Entitic vol] 88.2 fL Normal 80.0-99.0 [facility] Comment on above: Performed By: #### L 200.02544, L200.67354 #### LABORATORY [address] [place] [address] MONO ABS 0.40 K/CU MM Normal 0.1-1.1 [facility] Comment on above: Performed By: #### L 200.99816, L200.90287 #### LABORATORY [address] [place] [address] Monocytes/100 WBC (Bld) 6.9 % Normal 2-10 [facility] Comment on above: Performed By: #### L 200.47437, L200.39464 #### LABORATORY [address] [place] [address] NEUTROPHIL ABS 3.20 K/CU MM Normal 2.0-8.3 [facility] Comment on above: Performed By: #### L 200.41390, L200.70698 #### LABORATORY [address] [place] [address] Neutrophils/100 WBC (Bld) 53.0 % Normal 45-75 [facility] Comment on above: Performed By: #### L 200.39488, L200.34793 #### LABORATORY [address] [place] [address] Nucleated RBC/100 WBC (Bld) [Ratio] 0.0 % Normal Less than 1 [facility] Comment on above: Performed By: #### L 200.92166, L200.84964 #### LABORATORY [address] [place] [address] Platelet mean volume (Bld) [Entitic vol] 10.9 fL Normal 9.4-12.4 [facility] Comment on above: Performed By: #### L 200.87250, L200.21119 #### LABORATORY [address] [place] [address] PLT 318 K/CU MM Normal 150-450 [facility] Comment on above: Performed By: #### L 200.92481, L200.26842 #### LABORATORY [facility] [place] [address] RBC 4.23 M/CU MM Normal 3.90-5.30 [facility] Comment on above: Performed By: #### L 200.50524, L200.02671 #### LABORATORY [address] [place] [address] WBC 6.1 K/CUMM Normal 4.5-11.0 [facility] Comment on above: Performed By: #### L 200.96211, L200.80205 #### LABORATORY [address] [place], [place] [address] CMPon 11-14-2021 Albumin [Mass/Vol] 3.8 g/dL Normal 3.2-5.0 [facility] Comment on above: Performed By: #### L 500.97466, L500.67925 #### LABORATORY [address] [place], [place] [address] Albumin/Globulin [Mass ratio] 1.2 {ratio} Normal 0.8-2.0 [facility] Comment on above: Performed By: #### L 500.30591, L500.52828 #### LABORATORY [address] [place] [address] ALK PHOS 90 U/L Normal 45-117 [facility] Comment on above: Performed By: #### L 500.58846, L500.36890 #### LABORATORY [address] [place] [address] ALT [Catalytic activity/Vol] 38 U/L Normal 13-61 [facility] Comment on above: Result Comment: RESU LTS MAY BE FALSELY DEPRESSED AFTER THE ADMINISTRATION OF SULFASALAZINE AND/OR SULFAPYRIDINE. Performed By: #### L 500.52181, L500.94394 #### LABORATORY [address] [place] [address] Anion gap [Moles/Vol] 8 mmol/L Normal 5-16 [facility] Comment on above: Performed By: #### L 500.87858, L500.18822 #### LABORATORY [facility] [place] [id number] AST [Catalytic activity/Vol] 32 U/L Normal 8-34 [facility] Comment on above: Result Comment: RESU LTS MAY BE FALSELY DEPRESSED AFTER THE ADMINISTRATION OF SULFASALAZINE AND/OR SULFAPYRIDINE. Performed By: #### L 500.38274, L500.14596 #### LABORATORY [address] [place] [address] BILI TOTAL 0.30 MG/DL Normal 0.2-1.0 [facility] Comment on above: Performed By: #### L 500.90219, L500.97707 #### LABORATORY [address] [place] [address] Calcium [Mass/Vol] 9.7 mg/dL Normal 8.5-10.5 [facility] Comment on above: Result Comment: NOTE NEW NORMAL RANGE DUE TO REAGENT CHANGE Performed By: #### L 500.11421, L500.31724 #### LABORATORY [address] [place] [address] Chloride [Moles/Vol] 105 mmol/L Normal 98-107 [facility] Comment on above: Performed By: #### L 500.35169, L500.76658 #### LABORATORY [address] [place], [place] [address] CO2 [Moles/Vol] 27.0 mmol/L Normal 21-32 [facility] Comment on above: Performed By: #### L 500.68178, L500.61818 #### LABORATORY [address] [place], [place] [address] Creatinine [Mass/Vol] 0.79 mg/dL Normal 0.510-0.950 [facility] Comment on above: Result Comment: Alea ents receiving either N-Acetylcysteine (NAC) or Metamizole prior to venipuncture, may have falsely depressed results. Performed By: #### L 500.07208, L500.57129 #### LABORATORY [address] [place] [address] Globulin (S) [Mass/Vol] 3.1 g/dL Normal 2.2-4.2 [facility] Comment on above: Performed By: #### L 500.75217, L500.49360 #### LABORATORY [facility] [place] [address] Glucose [Mass/Vol] 115 mg/dL High 70-100 [facility] Comment on above: Result Comment: 70-1 00- Normal Fasting; 100-125 Impaired Fasting; greater than 126 on more than one result- Diabetes. ADA guidelines. Results may be falsely elevated after the administration of Sulfapyridine. Results may be falsely depressed after the administration of Sulfasalazine. Performed By: #### L 500.93822, L500.80855 #### LABORATORY [address] [place] [address] Potassium [Moles/Vol] 4.1 mmol/L Normal 3.5-5.1 [facility] Comment on above: Result Comment: Slig ht Hemolysis, Result may be affected. Performed By: #### L 500.36883, L500.15339 #### LABORATORY [address] [place] [address] Protein [Mass/Vol] 6.9 g/dL Normal 6.0-8.5 [facility] Comment on above: Performed By: #### L 500.63950, L500.87630 #### LABORATORY [facility] [place] [address] Sodium [Moles/Vol] 140 mmol/L Normal 136-145 [facility] Comment on above: Performed By: #### L 500.77081, L500.90804 #### LABORATORY [address] [place], [place] [address] Urea nitrogen [Mass/Vol] 11 mg/dL Normal 7-26 [facility] Comment on above: Performed By: #### L 500.72274, L500.32572 #### LABORATORY [address] [place], [place] [address] Urea nitrogen/Creatinine [Mass ratio] 14 mg/mg Low 15-24 [facility] Comment on above: Performed By: #### L 500.56215, L500.59633 #### LABORATORY [address] [place] [address] GFR ESTon 11-14-2021 IF AMER Greater than [address] [facility] Comment on above: Performed By: #### L 500.88160, L500.89471 #### LABORATORY [address] [place] [address] IF non-AFR AMER Greater than [address] [facility] Comment on above: Performed By: #### L 500.57351, L500.07530 #### LABORATORY [address] [place], [place] [address] WSR/MODon 11-14-2021 WSR/MOD 8 MM/HR Normal 0-20 [facility] Comment on above: Performed By: #### L 200.62114, L200.74833 #### LABORATORY [address] [place], [place] [address] CT HEAD/BRAIN W/O CONon 11-04 CT HEAD/BRAIN W/O CON EXAMINATION: CT HEAD/BRAIN W/O CON CLINICAL HISTORY: Headache TECHNIQUE: Serial axial images without IV contrast were obtained from the vertex to the foramen magnum. MQ: CTBWO_3 CT Radiation dose: Integrated Dose-Length Product (DLP) for this visit = 737.7 to mGy*cm CT Dose Reduction Employed: Automated exposure control COMPARISON: None. RESULT: Post-operative change: None. Acute change: No evidence of an acute infarct or other acute parenchymal process. Hemorrhage: No evidence of acute intracranial hemorrhage. Mass Lesion / Mass Effect: There is no evidence of an intracranial mass or extraaxial fluid collection. No significant mass effect. Chronic change: None apparent. Parenchyma: There is no significant volume loss. The brain parenchyma is otherwise within normal limits for age. Ventricles: The ventricles are within normal limits of size and configuration for age. Paranasal sinuses and skull base: The visualized paranasal sinuses are grossly clear. The skull base and imaged soft tissues are unremarkable. IMPRESSION: Unremarkable examination. This report was electronically signed by Elie Vance MD 11/13/2021 2:57 PM Reported By: ELIE VANCE M.D. Signed By: ELIE VANCE M.D. [facility] 11-13-2021 EMERGENCY PHYSICIAN REPORT This is a preliminary report only, as the practitioner review and authentication has not occurred. [facility] ER PHYSICIAN ASSESSMENT RECORDS : FlexChartData Event Time: 11/13/2021 14:45 Status: Signed [facility] Callie Kennedy [[id number] ] Attending Physician 51 / F / 1970 Chart (V2b) Chart created at 11/13/2021 14:38 by Klever Carroll Chart closed at 11/13/2021 17:16 Entry in Emergency Department at 11/13/2021 14:03, departure at 11/13/2021 17:41 Patient Name: Callie Kennedy Record Number: [id number] Date: 11/13/2021 14:38 Entered Department at: 11/13/2021 14:03 Patient Seen at: 11/13/2021 14:16 PCP: *Other,. Chief Complaint:REACTION TO INFUSION OF STELARA AT [facility], PT RECEIVED 100 MG OF THE 400 MG THAT WAS ORDERED. PT TOOK BENADRYL 25 MG X 2 PILLS SQUAD GAVE BENADRYL 25 MG IV. PT COUGHING, SMALL AMOUNT OF VOMITING AND SEVERE HEAD PAIN. WHEN SQUAD ARRIVED PT WAS HAVING TROUBLE BREATHING AND O2 SATS 88% ON RA, UPON ARRIVAL 100% RA History of Present Illness: Is a 51-year-old female comes in for evaluation of cough and shortness of breath that started while getting a IV infusion of Stelara. She states that she was about 20 minutes into the hour-long infusion when her symptoms occurred. This is the first time she has received this medication. She started to develop a scratchy sensation in her throat and chest followed by a cough producing a little bit of clear sputum. She has had several episodes of posttussive emesis. PATIENT NAME: CALLIE KENNEDY [address] [facility] [address] Soni MEDICAL REC #: [id number] [place] [id number] EMERGENCY DEPARTMENT REPORT EMERGENCY DEPARTMENT PHYSICIAN Some increasing shortness of breath and increasing cough symptoms. They stopped the infusion when the symptoms occurred, they gave the patient Benadryl. The patient also received Benadryl by the paramedics when her symptoms persisted. She states that while in the ambulance she started to develop a severe headache. She states she does not typically get headaches. She denies weakness or incoordination of the extremities. She denies any other associated symptoms or complaints. Review of Systems. All other systems reviewed and negative.. Past History, Medications, Allergies, Social History and Family History reviewed in nurses note. Medications: Reviewed RN Note. Allergies: Reviewed RN Note Social History: Reviewed RN Note. Family History: Reviewed RN Note Physical Examination: General: Alert, anxious, frequent paroxysms of coughing. HEENT: Normal ENT inspection.Oropharynx was unremarkable uvula is midline.. Neck: No Lymphadenopathy and Supple Respiratory: A bit tachypneic, but the lung sounds are clear. She has frequent coughing which seems mostly dry nonproductive right now Cardio-Vascular: RRR Abdomen: Non-tender and Soft Back: Non-tender Extremity: No Calf Tenderness and No edema Neurological: Alert, Oriented X3 and No Gross Weakness Skin: Warm and Dry Psychological: Mood/Affect Normal and Normal Memory/Judgment Imaging Study Obtained: CT (HEAD/BRAIN) WO CONT Imaging Study Obtained: CT HEAD/BRAIN W/O CON, Status:Signed Report Available EXAMINATION: CT HEAD/BRAIN W/O CON CLINICAL HISTORY: Headache PATIENT NAME: CALLIE KENNEDY Lenora Soni MEDICAL REC #: [id number] [place] [address] EMERGENCY DEPARTMENT REPORT EMERGENCY DEPARTMENT PHYSICIAN TECHNIQUE: Serial axial images without IV contrast were obtained from the vertex to the foramen magnum. MQ: CTBWO_3 CT Radiation dose: Integrated Dose-Length Product (DLP) for this visit = 737.7 to mGy*cm CT Dose Reduction Employed: Automated exposure control COMPARISON: None. RESULT: Post-operative change: None. Acute change: No evidence of an acute infarct or other acute parenchymal process. Hemorrhage: No evidence of acute intracranial hemorrhage. Mass Lesion / Mass Effect: There is no evidence of an intracranial mass or extraaxial fluid collection. No significant mass effect. Chronic change: None apparent. Parenchyma: There is no significant volume loss. The brain parenchyma is otherwise within normal limits for age. Ventricles: The ventricles are within normal limits of size and configuration for age. Paranasal sinuses and skull base: The visualized paranasal sinuses PATIENT NAME: CALLIE KENNEDY Lenora Soni MEDICAL REC #: [id number] [place] [address] EMERGENCY DEPARTMENT REPORT EMERGENCY DEPARTMENT PHYSICIAN are grossly clear. The skull base and imaged soft tissues are unremarkable. IMPRESSION: Unremarkable examination. This report (more content not included)... Normal [facility] Basophil percentageon 2021 Basophil percentage 0-5 SEEN /hpf [facility] Work Phone: Bilirubin Test strip Ql (U)o n 10-02-2021 Bilirubin Ql (U) Negative Negative [facility] Work Phone: Culture, urineon 10-02-2021 Bacteria identified Cx Nom (U) Positive [facility] Work Phone: Ketones Test strip Ql (U)on 10-02-2021 Ketones Ql (U) Negative Negative [facility] Work Phone: Mucus LM Ql (Urine sed)on Mucus Ql (Urine sed) 0 SEEN /hpf [facility] Work Phone: Nitrite Test strip Ql (U)on 10-02-2021 Nitrite Ql (U) Negative Negative [facility] Work Phone: Protein Test strip Ql (U)on 10-02-2021 Protein Ql (U) Negative Negative [facility] Work Phone: Squamous epithelial cells de tection in urine sediment by light microscopyon 10-02-2021 Epithelial cells.squamous LM Ql (Urine sed) 0-5 SEEN /hpf [facility] Work Phone: Urine blood detectionon 09-05 RBC Ql (U) Negative Negative [facility] Work Phone: RBC Ql (U) 0 SEEN /hpf [facility] Work Phone: Urine clarityon 10-02-2021 Clarity (U) Clear Clear [facility] Work Phone: Urine color determinationon 10-02-2021 Color (U) Yellow Yellow [facility] Work Phone: Urine glucose detectionon Glucose Ql (U) Normal mg/dl Normal [facility] Work Phone: Urine leukocyte esterase det ection by dipstickon 10-02-2021 Leukocyte esterase Test strip Ql (U) 25 /ul Negative [facility] Work Phone: Urine pHon 10-02-2021 pH (U) 6.5 [pH] [facility] Work Phone: Urine sediment bacteria coun t by microscopy (number/high power field)on 10-02-2021 Bacteria LM.HPF (Urine sed) [#/Area] RARE /hpf None Seen [facility] Work Phone: Urine specific gravity measu rementon 10-02-2021 Specific gravity (U) [Rel density] 1.015 [facility] Work Phone: Urobilinogen Auto test strip Ql (U)on 10-02-2021 Urobilinogen Ql (U) Normal mg/dl Normal [facility] Work Phone: Basophil percentageon 2021 Basophil percentage 0-5 SEEN /hpf [facility] Work Phone: Bilirubin Test strip Ql (U)o n 09-23-2021 Bilirubin Ql (U) 1 mg/dL Negative [facility] Work Phone: Comment on above: COLOR OF URINE MAY A FFECT DIPSTICK RESULTS. Culture, urineon 09-23-2021 Bacteria identified Cx Nom (U) Positive [facility] Work Phone: Ketones Test strip Ql (U)on 09-23-2021 Ketones Ql (U) Negative Negative [facility] Work Phone: Mucus LM Ql (Urine sed)on Mucus Ql (Urine sed) 0 SEEN /hpf [facility] Work Phone: Nitrite Test strip Ql (U)on 09-23-2021 Nitrite Ql (U) Positive Negative [facility] Work Phone: Protein Test strip Ql (U)on 09-23-2021 Protein Ql (U) Negative Negative [facility] Work Phone: Squamous epithelial cells de tection in urine sediment by light microscopyon 09-23-2021 Epithelial cells.squamous LM Ql (Urine sed) 0-5 SEEN /hpf [facility] Work Phone: Urine blood detectionon 09-05 RBC Ql (U) Negative Negative [facility] Work Phone: [phone] RBC Ql (U) 0 SEEN /hpf [facility] Work Phone: [phone] Urine clarityon 09-23-2021 Clarity (U) Clear Clear [facility] Work Phone: Urine color determinationon 09-23-2021 Color (U) Yellow Yellow [facility] Work Phone: Urine glucose detectionon Glucose Ql (U) Normal mg/dl Normal [facility] Work Phone: Urine leukocyte esterase det ection by dipstickon 09-23-2021 Leukocyte esterase Test strip Ql (U) 25 /ul Negative [facility] Work Phone: Urine pHon 09-23-2021 pH (U) 6.0 [pH] [facility] Work Phone: Urine sediment bacteria coun t by microscopy (number/high power field)on 09-23-2021 Bacteria LM.HPF (Urine sed) [#/Area] RARE /hpf None Seen [facility] Work Phone: Urine specific gravity measu rementon 09-23-2021 Specific gravity (U) [Rel density] 1.010 [facility] Work Phone: Urobilinogen Auto test strip Ql (U)on 09-23-2021 Urobilinogen Ql (U) 1 mg/dl Normal [facility] Work Phone: Clinical Summary: Mayra diaz 09-04-2021 MC25 OP Hand Invalid Interpretation Code [facility] Work Phone: Clinical Summary: Scanned Hi story Summaryon 09-04-2021 brother(s) of patient alive or Unknown Invalid Interpretation Code [facility] Work Phone: data entered by patient, alcohol (ethanol or ETOH) use No Invalid Interpretation Code [facility] Work Phone: Data entered by patient, allergy list Codeine Invalid Interpretation Code [facility] Work Phone: data entered by patient, drug (of abuse) use No Invalid Interpretation Code [facility] Work Phone: data entered by patient, Employer Name Employed Invalid Interpretation Code [facility] Work Phone: data entered by patient, exercise history No Invalid Interpretation Code [facility] Work Phone: data entered by patient, father's medical history Heart disease High blood pressure Invalid Interpretation Code [facility] Work Phone: Data entered by patient, history of past surgeries Abdominal Surgery Appendectomy Breast surgery other section Shoulder surgery other Trigger finger Hysterectomy Invalid Interpretation Code [facility] Work Phone: data entered by patient, mother's medical history Arthritis Heart disease Invalid Interpretation Code [facility] Work Phone: data entered by patient, past medical history Asthma Blood clots Crohn's disease Osteopenia Invalid Interpretation Code [facility] Work Phone: data entered by patient, social history, current smoker former smoker Invalid Interpretation Code [facility] Work Phone: data entered by patient, social history, marital status Invalid Interpretation Code [facility] Work Phone: father of patient is alive or Alive Invalid Interpretation Code [facility] Work Phone: Housing Type: apartment, house, skilled nursing, trailer, none House Invalid Interpretation Code [facility] Work Phone: housing unit size (asthma environmental history, housing) (from single family to don't know) 3 Floors Invalid Interpretation Code [facility] Work Phone: medical history of patient's sister Cancer Invalid Interpretation Code [facility] Work Phone: mother of patient is alive or Alive Invalid Interpretation Code [facility] Work Phone: Number of dependent children No Invalid Interpretation Code [facility] Work Phone: Office Visit: Workers Comp - Consult, Rm: 5on 09-04-2021 NEGATED: Highlighted rowEMG (electromyograph) history of the right upper limb on 01/08/2020 at [facility] Invalid Interpretation Code [facility] Work Phone: NEGATED: Highlighted rowMRI (magnetic resonance imaging) history of the right shoulder on 11/18/2020 at [facility] Invalid Interpretation Code [facility] Work Phone: NEGATED: Highlighted rowTobacco smoking status Tobacco smoking status Invalid Interpretation Code [facility] Work Phone: Absolute lymphocyte counton 07-13-2021 Lymphocytes Auto (Unsp spec) [#/Vol] 2.82 10*3/uL 0.83-4.51 [facility] Work Phone: Basophil percentageon 2021 Basophils/100 WBC (Bld) 0.8 % 0-1 [facility] Work Phone: Bilirubin [Mass/Vol] 0.20 mg/dL 0.20-1.00 [facility] Work Phone: Comment on above: For patients on eltr ombopag therapy, use of Dimension [place] TBIL is not recommended. Chloride [Moles/Vol] 105 mmol/L 98-107 [facility] Work Phone: Eosinophils/100 WBC (Bld) 2.7 % 0-5 [facility] Work Phone: Glucose [Mass/Vol] 92 mg/dL 74-106 [facility] Work Phone: Neutrophils (Bld) [#/Vol] 2.8 10*3/uL 2.0-7.7 [facility] Work Phone: Neutrophils/100 WBC (Bld) 44.3 % 47-70 [facility] Work Phone: Potassium [Moles/Vol] 3.8 mmol/L 3.5-5.1 [facility] Work Phone: Protein [Mass/Vol] 7.4 g/dL 6.4-8.2 [facility] Work Phone: Sodium [Moles/Vol] 139 mmol/L 136-145 [facility] Work Phone: WBC (Bld) [#/Vol] 6.4 10*3/uL 4.4-11.0 [facility] Work Phone: Blood erythrocytes count (nu mber/volume)on 07-13-2021 RBC (Bld) [#/Vol] 4.02 10*6/uL 4.2-5.4 [facility] Work Phone: Blood hemoglobin measurement (mass/volume)on 07-13-2021 Hemoglobin (Bld) [Mass/Vol] 12.2 g/dL 12.0-15.0 [facility] Work Phone: Blood lymphocytes/100 leukoc yteson 07-13-2021 Lymphocytes/100 WBC (Bld) 44.1 % 19-41 [facility] Work Phone: Blood monocytes/100 leukocyt eson 07-13-2021 Monocytes/100 WBC (Bld) 7.8 % 0-10 [facility] Work Phone: Blood platelet mean volumeon 07-13-2021 Platelet mean volume (Bld) [Entitic vol] 10.9 fL 6.2-12.0 [facility] Work Phone: [phone] Determination of erythrocyte mean corpuscular volume (MCV)on 07-13-2021 MCV (RBC) [Entitic vol] 89.3 fL 81-99 [facility] Work Phone: [phone] Hematocrit Auto (Bld) [Volum e fraction]on 07-13-2021 Hematocrit (Bld) [Volume fraction] 35.9 % 37-47 [facility] Work Phone: [phone] Laboratory - Chemistry and C hemistry - challengeon 07-13-2021 ALP [Catalytic activity/Vol] 74 U/L 45-117 [facility] Work Phone: [phone] ALT [Catalytic activity/Vol] 42 U/L 13-56 [facility] Work Phone: [phone] CO2 [Moles/Vol] 29.0 mmol/L 21.0-32.0 [facility] Work Phone: [phone] Globulin (S) [Mass/Vol] 3.8 g/dL 2.2-4.2 [facility] Work Phone: [phone] Urea nitrogen/Creatinine [Mass ratio] 17.4 mg/mg 10-20 [facility] Work Phone: [phone] Laboratory - Hematology and Cell countson 07-13-2021 Erythrocyte distribution width (RBC) [Entitic vol] 40.5 fL 35.1-43.9 [facility] Work Phone: [phone] Erythrocyte distribution width (RBC) [Ratio] 12.3 % 11.6-14.6 [facility] Work Phone: [phone] Immature granulocytes/100 WBC (Bld) 0.300 % 0.0-0.9 [facility] Work Phone: [phone] Comment on above: IG% - Immature Granu locytes (promyelocytes, myelocytes and metamyelocytes) > 1% indicates that a LEFT SHIFT is Present. MCH (RBC) [Entitic mass] 30.3 pg 27.0-32.0 [facility] Work Phone: [phone] Nucleated RBC/100 WBC (Bld) [Ratio] 0 % 0-5 [facility] Work Phone: MCHC Auto (RBC) [Mass/Vol]on 07-13-2021 MCHC (RBC) [Mass/Vol] 34.0 g/dL 32-36 [facility] Work Phone: No Panel Informationon 07-13 Estimated GFR (MDRD) Amer 97 mL/min >60 [facility] Work Phone: Comment on above: GFR Calc Estimated GFR (MDRD) Non-Af Amer 80 mL/min >60 [facility] Work Phone: Comment on above: Non- GFR Calc Platelets bldon 07-13-2021 Platelets (Bld) [#/Vol] 295 10*3/uL 150-450 [facility] Work Phone: Serum or plasma albumin laura urement (mass/volume)on 07-13-2021 Albumin [Mass/Vol] 3.6 g/dL 3.2-5.0 [facility] Work Phone: Serum or plasma albumin/glob ulin mass ratioon 07-13-2021 Albumin/Globulin [Mass ratio] 0.9 {ratio} 0.9-2.4 [facility] Work Phone: Serum or plasma calcium laura urement (mass/volume)on 07-13-2021 Calcium [Mass/Vol] 8.8 mg/dL 8.5-10.1 [facility] Work Phone: Serum or plasma creatinine m easurement (mass/volume)on 07-13-2021 Creatinine [Mass/Vol] 0.80 mg/dL 0.55-1.02 [facility] Work Phone: Comment on above: The validity of the calculated GFR & GFRAA in patients over 70 years has not been determined. Clinical correlation is essential. Serum or plasma urea nitroge n measurement (mass/volume)on 07-13-2021 Urea nitrogen [Mass/Vol] 14 mg/dL 7-18 [facility] Work Phone: Thin prep Papanicolaou smear with manual screeningon 07-13-2021 Thin prep Papanicolaou smear with manual screening 32 U/L 15-37 [facility] Work Phone: Thin prep Papanicolaou smear with manual screening 5 5-15 [facility] Work Phone: C-Reactive Proteinon 021 CRP [Mass/Vol] 13.1 mg/L High 0.0-9.9 [facility] Comment on above: Result Comment: . Performed By: #### C RP2, LDH3, FERR3 ####[facility] [address] [place] [address] CRP [Mass/Vol] 13.1 mg/L High 0.0 - 9.9 mg/L [facility] Comment on above: . CBCon 04-21-2021 Hematocrit (Bld) [Volume fraction] 37.1 % 35.0 - 47.0 % [facility] Work Phone: Hemoglobin.gastroint estinal spec 1 Ql (Stl) 13.0 g/dL 11.7 - 16.0 g/dL [facility] Work Phone: [phone] MCH (RBC) [Entitic mass] 31.1 pg 26.0 - 34.0 pg [facility] Work Phone: [phone] MCHC (RBC) [Mass/Vol] 35.2 % 32.0 - 36.0 % [employer] Phone: [phone] MCV (RBC) [Entitic vol] 88.5 fL 79.0 - 98.0 fL [facility] Work Phone: [phone] Platelet distribution width (Bld) [Ratio] 12.3 % 11.5 - 14.5 % [employer] Phone: [phone] Platelet mean volume (Bld) [Entitic vol] 8.9 fL 7.4 - 10.4 fL [employer] Phone: [phone] Platelets (Bld) [#/Vol] 200 10*3/uL 140 - 440 10*3/uL [facility] Work Phone: RBC (Bld) [#/Vol] 4.19 10*6/uL 3.80 - 5.2 0 10*6/uL [facility] Work Phone: [phone] WBC (Bld) [#/Vol] 7.3 10*3/uL 3.6 - 10.7 10*3/uL [facility] Work Phone: [phone] Test Performed by [facility], [address] [place], [place] [id number] [place] [address] LAB [facility] Work Phone: [phone] D-Dimer, Innovanceon 04-21-2 021 D-Dimer, Innovance 0.36 mg/L Normal <0.19-0.50 [facility] Comment on above: Result Comment: Inno harrington D-Dimer values of <0.50 mg/L FEU can be used in combination with a pre-test probability model (e.g. Well's) to exclude pulmonary embolism (PE) disease, as well as an aid in the diagnosis of deep vein thrombosis (DVT). Performed By: #### H EMOG, DDI2 ####[employer] [address] [place] [address] D-Dimer, Quantitativeon 04-06 D-Dimer, Quant 0.36 mg/L <0.19 - 0.50 [facility] Work Phone: [phone] Comment on above: Innovance D-Dimer va lues of <0.50 mg/L FEU can be used in combination with a pre-test probability model (e.g. Well's) to exclude pulmonary embolism (PE) disease, as well as an aid in the diagnosis of deep vein thrombosis (DVT). Test Performed by [facility], [address] [place], [place] [id number] [place] [address] LAB [facility] Work Phone: Ferritinon 04-21-2021 Ferritin [Mass/Vol] 144 ng/mL High 6-137 [facility] Comment on above: Performed By: #### C RP2, LDH3, FERR3 ####[employer] [address] [facility] [place] [address] Ferritin [Mass/Vol] 144 ng/mL High 6 - 137 ng/mL [facility] Interpretation and review of laboratory results Abnormal [facility] Test Performed by [facility], [address] [place] [address] [address] [place] [id number] [facility] LAB [facility] Hemogramon 04-21-2021 Erythrocyte distribution width (RBC) [Ratio] 12.3 % Normal 11.5-14.5 [facility] Comment on above: Performed By: #### Niesha MILLER DDI2 ####[facility] [place] [address] Hematocrit (Bld) [Volume fraction] 37.1 % Normal 35.0-47.0 [facility] Comment on above: Performed By: #### Niesha MILLER DDI2 ####[facility] [employer] [address] [place] [address] Hemoglobin (Bld) [Mass/Vol] 13.0 g/dL Normal 11.7-16.0 [facility] Comment on above: Performed By: #### Niesha MILLER DDI2 ####[place] [address] [place] [address] MCH (RBC) [Entitic mass] 31.1 pg Normal 26.0-34.0 [facility] Comment on above: Performed By: #### Niesha MILLER DDI2 ####[facility] [employer] [address] [place] [address] MCHC 35.2 % Normal 32.0-36.0 [facility] Comment on above: Performed By: #### Niesha MILLER DDI2 ####[facility] [employer] [place] [address] [place] [address] MCV (RBC) [Entitic vol] 88.5 fL Normal 79.0-98.0 [facility] Comment on above: Performed By: #### Niesha MILLER DDI2 ####[facility] [employer] [address] [place] [address] Platelet mean volume (Bld) [Entitic vol] 8.9 fL Normal 7.4-10.4 [facility] Comment on above: Performed By: #### H PAUL DDI2 ####[facility] [employer] [place] [address] [place] [address] Platelets (Bld) [#/Vol] 200 10*3/uL Normal 140-440 [facility] Comment on above: Performed By: #### H EMOG, DDI2 ####[facility] [place] [address] RBC (Bld) [#/Vol] 4.19 10*6/uL Normal 3.80-5.20 [facility] Comment on above: Performed By: #### H EMOG, DDI2 ####[facility] [place] [address] WBC (Bld) [#/Vol] 7.3 10*3/uL Normal 3.6-10.7 [facility] Comment on above: Performed By: #### H EMOG, DDI2 ####[facility] [place] [address] LDHon 04-21-2021 LDH 276 U/L High 120-246 [facility] Comment on above: Performed By: #### C RP2, LDH3, FERR3 ####[facility] [place] [address] Lactate Dehydrogenaseon 04-06 LD 276 U/L High 120 - 246 U/L [facility] No Panel Informationon 04-21 Interpretation and review of laboratory results Abnormal [facility] Test Performed by [facility], [address] [place], [place] [address] [facility] Add on test from HISon 04-20 Add on test from HIS Accepted Normal [facility] Comment on above: Result Comment: Spec imen available & acceptable for analysis. Performed By: #### A DDON ####[facility] [place] [address] C-Reactive Proteinon 021 CRP [Mass/Vol] 11.7 mg/L High 0.0-9.[address] [facility] Comment on above: Result Comment: . Performed By: #### D DI2, VD25H, CRP2, HEMDF #### [facility] [address] [place] [address] #### PCAL #### [facility] [address] [place] [address] CRP [Mass/Vol] 11.7 mg/L High 0.0 - 9.9 mg/L [facility] Work Phone: Comment on above: . Interpretation and review of laboratory results Abnormal [facility] Work Phone: Test Performed by [facility], [address], [place], [place] [address] [facility] LAB [facility] Work Phone: CBC Auto Differentialon 11- Absolute Baso # 0.0 10*3/uL 0.0 - 0.2 10*3/uL [facility] Work Phone: 1 Absolute Neut # 1.4 10*3/uL Low 1.8 - 7.0 10*3/uL [employer] Work Phone: Basophils/100 WBC (Bld) 0.9 % 0.0 - 2.0 % [facility] Work Phone: Eosinophils (Bld) [#/Vol] 0.0 10*3/uL 0.0 - 0.5 10*3/uL [facility] Work Phone: Eosinophils/100 WBC (Bld) 0.1 % Low 1.0 - 6.0 % [facility] Work Phone: Granulocytes/100 WBC (Bld) 57.7 % 40.0 - 80.0 % [employer] Work Phone: Hematocrit (Bld) [Volume fraction] 35.7 % 35.0 - 47.0 % [facility] Work Phone: Hemoglobin.gastroint estinal spec 1 Ql (Stl) 12.3 g/dL 11.7 - 16.0 g/dL [facility] Work Phone: Interpretation and review of laboratory results Abnormal [facility] Work Phone: Lymphocytes (Bld) [#/Vol] 0.9 10*3/uL Low 1.0 - 4.3 10*3/uL [facility] Work Phone: Lymphocytes/100 WBC (Bld) 34.3 % 20.0 - 40.0 % [facility] Work Phone: MCH (RBC) [Entitic mass] 30.7 pg 26.0 - 34.0 pg [facility] Work Phone: 1 MCHC (RBC) [Mass/Vol] 34.5 % 32.0 - 36.0 % [facility] Work Phone: 1 MCV (RBC) [Entitic vol] 88.9 fL 79.0 - 98.[address] [facility] Work Phone: 1( Monocytes (Bld) [#/Vol] 0.2 10*3/uL 0.0 - 0.8 10*3/uL [facility] Work Phone: 1( Monocytes/100 WBC (Bld) 7.0 % 2.0 - 10.0 % [facility] Work Phone: 1 Platelet distribution width (Bld) [Ratio] 12.0 % 11.5 - 14.5 % [facility] Work Phone: Platelet mean volume (Bld) [Entitic vol] 9.2 fL 7.4 - 10.[address] [facility] Work Phone: () Platelets (Bld) [#/Vol] 182 10*3/uL 140 - 440 10*3/uL [facility] Work Phone: ( RBC (Bld) [#/Vol] 4.02 10*6/uL 3.80 - 5.2 0 10*6/uL [facility] Work Phone: 1() WBC (Bld) [#/Vol] 2.5 10*3/uL Low 3.6 - 10.7 10*3/uL [facility] Work Phone: ) Test Performed by [facility], [address] [place], [place] [id number] [place] [address] LAB [facility] Work Phone: ) D-Dimer, Innovanceon 11-15-2 021 D-Dimer, Innovance 0.52 mg/L High <0.19-0.50 [facility] Comment on above: Result Comment: Inno harrington D-Dimer values of <0.50 mg/L FEU can be used in combination with a pre-test probability model (e.g. Well's) to exclude pulmonary embolism (PE) disease, as well as an aid in the diagnosis of deep vein thrombosis (DVT). Performed By: #### D DI2, VD25H, CRP2, HEMDF #### [facility] [employer] [facility] [address] [place] [address] #### PCAL #### [facility] [employer] [facility] [address] [place] [address] D-Dimer, Quantitativeon 11- D-Dimer, Quant 0.52 mg/L High <0.19 - 0.50 [facility] Work Phone: Comment on above: [employer] D-Dimer va lues of <0.50 mg/L FEU can be used in combination with a pre-test probability model (e.g. Well's) to exclude pulmonary embolism (PE) disease, as well as an aid in the diagnosis of deep vein thrombosis (DVT). Interpretation and review of laboratory results Abnormal [facility] Work Phone: Test Performed by [facility], [address], [place], [place] [id number] [place] [address] LAB [facility] Work Phone: EKG 12 Lead - Chest Painon 1 06-20-2020 [facility] Test Date: 2021-04-19 Pat Name: CALLIE KENNEDY Department: 2AED Room: 444 Gender: F Pathology Manager: OBDULIA : 1970 Requested By: TAMAR TRUONG Order Number: [id number] Reading : Daniel Thakur Measurements Intervals Willow Rate: 111 P: 54 AR: 116 QRS: 83 QRSD: 66 T: 49 QT: 324 QTc: 441 Interpretive Statements SINUS TACHYCARDIA Otherwise Normal ECG Electronically Signed On 04-20-2021 8:06:08 EST by Daniel Thakur [facility] CARDIOLOGY Daniel Thakur MD - 04/20/2021 [facility] Test Date: 2021-04-19 Pat Name: CALLIE KENNEDY Department: 2AED Room: 444 Gender: F Pathology Manager: OBDULIA : 1970 Requested By: TAMAR TRUONG Order Number: [id number] Reading : Daniel Thakur Measurements Intervals Willow Rate: 111 P: 54 AR: 116 QRS: 83 QRSD: 66 T: 49 QT: 324 QTc: 441 Interpretive Statements SINUS TACHYCARDIA Otherwise Normal ECG Electronically Signed On 04-20-2021 8:06:08 EST by Daniel Thakur [facility] Work Phone: EKG 12 Lead - Chest PainOrde red By: Daniel Thakur on 04-20-2021 [employer] Work Phone: Hemogram w/ Autodiffon 04-20 Abs Baso Cnt 0.0 10*3/uL Normal 0.0-0.2 [facility] Comment on above: Performed By: #### D DI2, VD25H, CRP2, HEMDF #### [facility] [employer] [facility] [address] [facility] [address] #### PCAL #### [address] Abs Neutrophile Cnt 1.4 10*3/uL Low 1.8-7.0 [facility] Comment on above: Performed By: #### D DI2, VD25H, CRP2, HEMDF #### [facility] [employer] [address] [place] [address] #### PCAL #### [address] Basophils/100 WBC (Bld) 0.9 % Normal 0.0-2.0 [facility] Comment on above: Performed By: #### D DI2, VD25H, CRP2, HEMDF #### [facility] [employer] [address] [facility] [address] #### PCAL #### [address] Eosinophils (Bld) [#/Vol] 0.0 10*3/uL Normal 0.0-0.5 [facility] Comment on above: Performed By: #### D DI2, VD25H, CRP2, HEMDF #### [facility] [employer] [address] [facility] [address] #### PCAL #### [address] Eosinophils/100 WBC (Bld) 0.1 % Low 1.0-6.0 [facility] Comment on above: Performed By: #### D DI2, VD25H, CRP2, HEMDF #### [facility] [address] [place] [address] #### PCAL #### [address] Erythrocyte distribution width (RBC) [Ratio] 12.0 % Normal 11.5-14.5 [facility] Comment on above: Performed By: #### D DI2, VD25H, CRP2, HEMDF #### [facility] [address] [place] [address] #### PCAL #### [address] Granulocytes/100 WBC (Bld) 57.7 % Normal 40.0-80.0 [facility] Comment on above: Performed By: #### D DI2, VD25H, CRP2, HEMDF #### [facility] [address] [place] [address] #### PCAL #### [address] Hematocrit (Bld) [Volume fraction] 35.7 % Normal 35.0-47.0 [facility] Comment on above: Performed By: #### D DI2, VD25H, CRP2, HEMDF #### [facility] [address] [place] [address] #### PCAL #### [address] Hemoglobin (Bld) [Mass/Vol] 12.3 g/dL Normal 11.7-16.0 [facility] Comment on above: Performed By: #### D DI2, VD25H, CRP2, HEMDF #### [facility] [address] [place] [address] #### PCAL #### [address] Lymphocytes (Bld) [#/Vol] 0.9 10*3/uL Low 1.0-4.3 [facility] Comment on above: Performed By: #### D DI2, VD25H, CRP2, HEMDF #### [facility] [address] [place] [address] #### PCAL #### [place] [address] [place], [place] Lymphocytes/100 WBC (Bld) 34.3 % Normal 20.0-40.0 [facility] Comment on above: Performed By: #### D DI2, VD25H, CRP2, HEMDF #### [place] [address] [place] [address] #### PCAL #### [address] MCH (RBC) [Entitic mass] 30.7 pg Normal 26.0-34.0 [facility] Comment on above: Performed By: #### D DI2, VD25H, CRP2, HEMDF #### [facility] [address] [place] [address] #### PCAL #### [address] MCHC 34.5 % Normal 32.0-36.0 [facility] Comment on above: Performed By: #### D DI2, VD25H, CRP2, HEMDF #### [place] [address] [place] [address] #### PCAL #### [address] MCV (RBC) [Entitic vol] 88.9 fL Normal 79.0-98.0 [facility] Comment on above: Performed By: #### D DI2, VD25H, CRP2, HEMDF #### [facility] [address] [place] [address] #### PCAL #### [address] Monocytes (Bld) [#/Vol] 0.2 10*3/uL Normal 0.0-0.8 [facility] Comment on above: Performed By: #### D DI2, VD25H, CRP2, HEMDF #### [facility] [address] [place] [address] #### PCAL #### [facility] [address] [place], [place] Monocytes/100 WBC (Bld) 7.0 % Normal 2.0-10.0 [facility] Comment on above: Performed By: #### D DI2, VD25H, CRP2, HEMDF #### [facility] [address] [place] [address] #### PCAL #### [place] [address] [address] [place], [place] Platelet mean volume (Bld) [Entitic vol] 9.2 fL Normal 7.4-10.4 [facility] Comment on above: Performed By: #### D DI2, VD25H, CRP2, HEMDF #### [facility] [address] [place] [address] #### PCAL #### [place] [address] [address] [place], [place] Platelets (Bld) [#/Vol] 182 10*3/uL Normal 140-440 [facility] Comment on above: Performed By: #### D DI2, VD25H, CRP2, HEMDF #### [place] [address] [place] [address] #### PCAL #### [place] [address] [address] [place], [place] RBC (Bld) [#/Vol] 4.02 10*6/uL Normal 3.80-5.20 [facility] Comment on above: Performed By: #### D DI2, VD25H, CRP2, HEMDF #### [facility] [address] [place] [address] #### PCAL #### [place] [address] [address] [place], [place] WBC (Bld) [#/Vol] 2.5 10*3/uL Low 3.6-10.7 [facility] Comment on above: Performed By: #### D DI2, VD25H, CRP2, HEMDF #### [facility] [address] [place] [address] #### PCAL #### [facility] [address] [place] [address] LEGIONELLA AG, URINEon 04-20 LEGIONELLA AG, URINE Not detected Normal [facility] Comment on above: Performed By: #### S VINCENZO BRICENO ####[facility] [place] [address]#### CUA2 ####[facility] [place] [address] Legionella antigen, urineon 04-20-2021 LEGIONELLA ANTIGEN Not detected [facility] No Panel Informationon 04-20 Test Performed by [facility], [address] [place] [id number] [place] [address] LAB [facility] Procalcitoninon 04-20-2021 Procalcitonin < 0.02 Normal 0.00-0.09 [facility] Comment on above: Performed By: #### D DI2, VD25H, CRP2, HEMDF #### [facility] [address] [place] [address] #### PCAL #### [facility] [address] [place] [address] [address] [facility] Work Phone: Comment on above: PCT <0.50 = Low risk of severe sepsis and/or septic shock. PCT >2.00 = High risk of severe sepsis and/or septic shock. Procalcitonin <0.02 0.00 - 0.09 ng/mL [facility] Work Phone: Test Performed by [facility], [address] [place] [id number] [place] [address] LAB [facility] Work Phone: Interpretation See Below Normal [facility] Comment on above: Result Comment: PCT <0.50 = Low risk of severe sepsis and/or septic shock. PCT >2.00 = High risk of severe sepsis and/or septic shock. Performed By: #### D DI2, VD25H, CRP2, HEMDF #### [facility] [employer] [facility] [address] [place] [address] #### PCAL #### [facility] [address] [place] [address] STREP PNEUMO ANTIGEN, URINEo n 04-20-2021 STREP PNEUMO ANTIGEN, URINE Not detected Normal [facility] Comment on above: Performed By: #### S VINCENZO BRICENO ####[facility] [employer] [address] [place] [address]#### CUA2 ####[facility] [place] [address] Strep Pneumoniae Antigenon 1 06-20-2020 STREP PNEUMONIAE ANTIGEN, URINE Not detected [facility] Vit D 25-OH, Totalon 021 Vit D 25-[place], Total 54 ng/mL Normal 30-100 [facility] Comment on above: Result Comment: Ther apy is based on measurement of Total 25- OHD with the following classification levels: Less than 20 ng/mL: Indicative of Vit D deficiency 20-30 ng/mL: Suggests Vit D insufficiency Optimal: Greater than or equal to 30 ng/mL Test performed by [employer] Competitive Immunoassay, measuring Total Vitamin D, not individual fractions. Performed By: #### D DI2, VD25H, CRP2, HEMDF #### [facility] [employer] [facility] [address] [place] [address] #### PCAL #### [facility] [address] [place] [address] Vitamin D 25 Hydroxyon 04-20 Vit D, 25-Hydroxy 54 ng/mL 30 - 100 ng/mL [facility] Work Phone: Comment on above: Therapy is based on measurement of Total 25-OHD with the following classification levels: Less than 20 ng/mL: Indicative of Vit D deficiency 20-30 ng/mL: Suggests Vit D insufficiency Optimal: Greater than or equal to 30 ng/mL Test performed by [employer] Competitive Immunoassay, measuring Total Vitamin D, not individual fractions. Test Performed by [facility], [address] [place], [place] [address] [facility] Work Phone: Add On Lab Teston 04-19-2021 Add On Accepted [facility] Comment on above: Specimen available & acceptable for analysis. Test Performed by [facility], [address], [place], [place] [address] [facility] CT Abdomen and Pelvis W cont rast Ruth 04-19-2021 Patient Name: CALLIE KENNEDY Computed Tomography ACCESSION EXAM DATE/TIME PROCEDURE ORDERING PROVIDER [id number] 04/19/2021 19:[address] Abdomen/Pelvis w/ IV MELBA TRUONG DANIEL M Contrast (IV Onl CPT code 04451 Reason For Exam (CT Abdomen/Pelvis w/ IV Contrast (IV Onl) Lower abdominal pain, blood in stool, history of ulcerative colitis Report CTA CHEST WITH IV CONTRAST CLINICAL INDICATION: dyspnea, pleuritic chest pain, covid positive. TECHNIQUE: CTA of the chest with IV contrast. Multiplanar reformations. 3-D image post-processing was performed on an independent workstation. COMPARISON: None. FINDINGS: The main and bilateral proximal pulmonary arteries are normally opacified without apparent filling defects. No apparent aneurysm, pseudoaneurysm or aortic dissection. No significant lymph node enlargement or axillary adenopathy. Lungs show patchy and partially confluent, reticular and mostly groundglass opacities scattered bilaterally, in a multifocal pattern and with peripheral distribution, primarily in the lower lobes. No discrete mass, pleural effusion or apparent pneumothorax. Bony thorax grossly unremarkable. IMPRESSION: 1. No evidence of large vessel or central pulmonary emboli. 2. Commonly reported imaging features of Coronavirus disease 2019 (COVID-19) pneumonia are present. Other processes, such as influenza pneumonia and organizing pneumonia, as well as drug toxicity and connective tissue disease, can cause a similar imaging pattern. Follow-up suggested. CT ABDOMEN AND PELVIS WITH CONTRAST CLINICAL INDICATION: dyspnea, pleuritic chest pain, covid positive TECHNIQUE: CT scan of the abdomen and pelvis, with IV contrast. Multiplanar reformations. Computed Tomography Report COMPARISON: January,. FINDINGS: Abdomen: No radiopaque gallstones. Liver without significant abnormality. Subcentimeter hypodensity near bladder dome, too small to adequately characterize, but statistically suggesting cyst or hemangioma. Spleen without significant abnormality. Pancreas without significant abnormality. Kidneys without significant abnormality. Probable subcentimeter right renal cyst. Adrenal glands without significant abnormality. Pelvis: Bowel grossly unremarkable. Appendix probably surgically absent. No significant, free peritoneal fluid or apparent adenopathy. Abdominal aorta is nonaneurysmal. Uterus surgically absent. Axial skeleton grossly intact. IMPRESSION: 1. No acute findings. 2. Postsurgical change. Report Dictated on --- Final --- Dictating Physician: MD FRANKLIN WENDELL Signed Date and Time: 04/19/2021 8:13 pm Signed by: MD FRANKLIN WENDELL Transcribed Date and Time: 04/19/2021 8:14 [facility] Toni Franklin MD - 04/19/2021 Patient Name: CALLIE KENNEDY Computed Tomography ACCESSION EXAM DATE/TIME PROCEDURE ORDERING PROVIDER [id number] 04/19/2021 19:[address] Abdomen/Pelvis w/ IV MELBA TRUONG DANIEL M Contrast (IV Onl CPT code 91974 Reason For Exam (CT Abdomen/Pelvis w/ IV Contrast (IV Onl) Lower abdominal pain, blood in stool, history of ulcerative colitis Report CTA CHEST WITH IV CONTRAST CLINICAL INDICATION: dyspnea, pleuritic chest pain, covid positive. TECHNIQUE: CTA of the chest with IV contrast. Multiplanar reformations. 3-D image post-processing was performed on an independent workstation. COMPARISON: None. FINDINGS: The main and bilateral proximal pulmonary arteries are normally opacified without apparent filling defects. No apparent aneurysm, pseudoaneurysm or aortic dissection. No significant lymph node enlargement or axillary adenopathy. Lungs show patchy and partially confluent, reticular and mostly groundglass opacities scattered bilaterally, in a multifocal pattern and with peripheral distribution, primarily in the lower lobes. No discrete mass, pleural effusion or apparent pneumothorax. Bony thorax grossly unremarkable. IMPRESSION: 1. No evidence of large vessel or central pulmonary emboli. 2. Commonly reported imaging features of Coronavirus disease 2019 (COVID-19) pneumonia are present. Other processes, such as influenza pneumonia and organizing pneumonia, as well as drug toxicity and connective tissue disease, can cause a similar imaging pattern. Follow-up suggested. CT ABDOMEN AND PELVIS WITH CONTRAST CLINICAL INDICATION: dyspnea, pleuritic chest pain, covid positive TECHNIQUE: CT scan of the abdomen and pelvis, with IV contrast. Multiplanar reformations. Computed Tomography Report COMPARISON: January,. FINDINGS: Abdomen: No radiopaque gallstones. Liver without significant abnormality. Subcentimeter hypodensity near bladder dome, too small to adequately characterize, but statistically suggesting cyst or hemangioma. Spleen without significant abnormality. Pancreas without significant abnormality. Kidneys without significant abnormality. Probable subcentimeter right renal cyst. Adrenal glands without significant abnormality. Pelvis: Bowel grossly unremarkable. Appendix probably surgically absent. No significant, free peritoneal fluid or apparent adenopathy. Abdominal aorta is nonaneurysmal. Uterus surgically absent. Axial skeleton grossly intact. IMPRESSION: 1. No acute findings. 2. Postsurgical change. Report Dictated on --- Final --- Dictating Physician: MD FRANKLIN WENDELL Signed Date and Time: 04/19/2021 8:13 pm Signed by: MD FRANKLIN WENDELL Transcribed Date and Time: 04/19/2021 8:14 [facility] Work Phone: [facility] Work Phone: CT Abdomen/Pelvis w/ Contras ton 04-19-2021 CT Abdomen/Pelvis w/ Contrast [facility]: [id number] Comput[facility] Tomography ACCESSION EXAM DATE/TIME PROCEDURE ORDERING PROVIDER [id number] 04/19/2021 19:[address] Abdomen/Pelvis w/ IV MELBA TRUONG DANIEL M Contrast (IV Onl CPT code 17789 Reason For Exam (CT Abdomen/Pelvis w/ IV Contrast (IV Onl) Lower abdominal pain, blood in stool, history of ulcerative colitis Report CTA CHEST WITH IV CONTRAST CLINICAL INDICATION: dyspnea, pleuritic chest pain, covid positive. TECHNIQUE: CTA of the chest with IV contrast. Multiplanar reformations. 3-D image post-processing was performed on an independent workstation. COMPARISON: None. FINDINGS: The main and bilateral proximal pulmonary arteries are normally opacified without apparent filling defects. No apparent aneurysm, pseudoaneurysm or aortic dissection. No significant lymph node enlargement or axillary adenopathy. Lungs show patchy and partially confluent, reticular and mostly groundglass opacities scattered bilaterally, in a multifocal pattern and with peripheral distribution, primarily in the lower lobes. No discrete mass, pleural effusion or apparent pneumothorax. Bony thorax grossly unremarkable. IMPRESSION: 1. No evidence of large vessel or central pulmonary emboli. 2. Commonly reported imaging features of Coronavirus disease 2019 (COVID-19) pneumonia are present. Other processes, such as influenza pneumonia and organizing pneumonia, as well as drug toxicity and connective tissue disease, can cause a similar imaging pattern. Follow-up suggested. CT ABDOMEN AND PELVIS WITH CONTRAST CLINICAL INDICATION: dyspnea, pleuritic chest pain, covid positive TECHNIQUE: CT scan of the abdomen and pelvis, with IV contrast. Multiplanar reformations. Computed Tomography Report COMPARISON: January,. FINDINGS: Abdomen: No radiopaque gallstones. Liver without significant abnormality. Subcentimeter hypodensity near bladder dome, too small to adequately characterize, but statistically suggesting cyst or hemangioma. Spleen without significant abnormality. Pancreas without significant abnormality. Kidneys without significant abnormality. Probable subcentimeter right renal cyst. Adrenal glands without significant abnormality. Pelvis: Bowel grossly unremarkable. Appendix probably surgically absent. No significant, free peritoneal fluid or apparent adenopathy. Abdominal aorta is nonaneurysmal. Uterus surgically absent. Axial skeleton grossly intact. IMPRESSION: 1. No acute findings. 2. Postsurgical change. Report Dictated on Workstation: [id number] Final Dictating Physician: MD FRANKLIN WENDELL Signed Date and Time: 04/19/2021 8:13 pm Signed by: MD FRANKLIN WENDELL Transcribed Date and Time: 04/19/2021 8:14 Normal [facility] CTA Chest W WO (PE study)on 04-19-2021 Patient Name: CALLIE KENNEDY Computed Tomography ACCESSION EXAM DATE/TIME PROCEDURE ORDERING PROVIDER [id number] 04/19/2021 19:54 EST CTA Chest w/ + w/o MELBA TRUONG DANIEL M Contrast CPT code 16842 Q9967 Reason For Exam (CTA Chest w/ + w/o Contrast) dyspnea, pleuritic chest pain, covid positive Report CTA CHEST WITH IV CONTRAST CLINICAL INDICATION: dyspnea, pleuritic chest pain, covid positive. TECHNIQUE: CTA of the chest with IV contrast. Multiplanar reformations. 3-D image post-processing was performed on an independent workstation. COMPARISON: None. FINDINGS: The main and bilateral proximal pulmonary arteries are normally opacified without apparent filling defects. No apparent aneurysm, pseudoaneurysm or aortic dissection. No significant lymph node enlargement or axillary adenopathy. Lungs show patchy and partially confluent, reticular and mostly groundglass opacities scattered bilaterally, in a multifocal pattern and with peripheral distribution, primarily in the lower lobes. No discrete mass, pleural effusion or apparent pneumothorax. Bony thorax grossly unremarkable. IMPRESSION: 1. No evidence of large vessel or central pulmonary emboli. 2. Commonly reported imaging features of Coronavirus disease 2019 (COVID-19) pneumonia are present. Other processes, such as influenza pneumonia and organizing pneumonia, as well as drug toxicity and connective tissue disease, can cause a similar imaging pattern. Follow-up suggested. CT ABDOMEN AND PELVIS WITH CONTRAST CLINICAL INDICATION: dyspnea, pleuritic chest pain, covid positive TECHNIQUE: CT scan of the abdomen and pelvis, with IV contrast. Multiplanar reformations. Computed Tomography Report COMPARISON: January,. FINDINGS: Abdomen: No radiopaque gallstones. Liver without significant abnormality. Subcentimeter hypodensity near bladder dome, too small to adequately characterize, but statistically suggesting cyst or hemangioma. Spleen without significant abnormality. Pancreas without significant abnormality. Kidneys without significant abnormality. Probable subcentimeter right renal cyst. Adrenal glands without significant abnormality. Pelvis: Bowel grossly unremarkable. Appendix probably surgically absent. No significant, free peritoneal fluid or apparent adenopathy. Abdominal aorta is nonaneurysmal. Uterus surgically absent. Axial skeleton grossly intact. IMPRESSION: 1. No acute findings. 2. Postsurgical change. Report Dictated on --- Final --- Dictating Physician: MD FRANKLIN WENDELL Signed Date and Time: 04/19/2021 8:13 pm Signed by: MD FRANKLIN WENDELL Transcribed Date and Time: 04/19/2021 8:14 [facility] Toni Franklin MD - 04/19/2021 Patient Name: CALLIE KENNEDY Computed Tomography ACCESSION EXAM DATE/TIME PROCEDURE ORDERING PROVIDER [id number] 04/19/2021 19:54 EST CTA Chest w/ + w/o MELBA TRUONG DANIEL M Contrast CPT code 91991 Q9967 Reason For Exam (CTA Chest w/ + w/o Contrast) dyspnea, pleuritic chest pain, covid positive Report CTA CHEST WITH IV CONTRAST CLINICAL INDICATION: dyspnea, pleuritic chest pain, covid positive. TECHNIQUE: CTA of the chest with IV contrast. Multiplanar reformations. 3-D image post-processing was performed on an independent workstation. COMPARISON: None. FINDINGS: The main and bilateral proximal pulmonary arteries are normally opacified without apparent filling defects. No apparent aneurysm, pseudoaneurysm or aortic dissection. No significant lymph node enlargement or axillary adenopathy. Lungs show patchy and partially confluent, reticular and mostly groundglass opacities scattered bilaterally, in a multifocal pattern and with peripheral distribution, primarily in the lower lobes. No discrete mass, pleural effusion or apparent pneumothorax. Bony thorax grossly unremarkable. IMPRESSION: 1. No evidence of large vessel or central pulmonary emboli. 2. Commonly reported imaging features of Coronavirus disease 2019 (COVID-19) pneumonia are present. Other processes, such as influenza pneumonia and organizing pneumonia, as well as drug toxicity and connective tissue disease, can cause a similar imaging pattern. Follow-up suggested. CT ABDOMEN AND PELVIS WITH CONTRAST CLINICAL INDICATION: dyspnea, pleuritic chest pain, covid positive TECHNIQUE: CT scan of the abdomen and pelvis, with IV contrast. Multiplanar reformations. Computed Tomography Report COMPARISON: January,. FINDINGS: Abdomen: No radiopaque gallstones. Liver without significant abnormality. Subcentimeter hypodensity near bladder dome, too small to adequately characterize, but statistically suggesting cyst or hemangioma. Spleen without significant abnormality. Pancreas without significant abnormality. Kidneys without significant abnormality. Probable subcentimeter right renal cyst. Adrenal glands without significant abnormality. Pelvis: Bowel grossly unremarkable. Appendix probably surgically absent. No significant, free peritoneal fluid or apparent adenopathy. Abdominal aorta is nonaneurysmal. Uterus surgically absent. Axial skeleton grossly intact. IMPRESSION: 1. No acute findings. 2. Postsurgical change. Report Dictated on --- Final --- Dictating Physician: MD FRANKLIN WENDELL Signed Date and Time: 04/19/2021 8:13 pm Signed by: MD FRANKLIN WENDELL Transcribed Date and Time: 04/19/2021 8:14 [facility] Work Phone: CTA Chest W WO (PE study)Ord ered By: Toni Franklin on 04-19-2021 [facility] Work Phone: CTA Chest w/ + w/o Contrasto n 04-19-2021 CTA Chest w/ + w/o Contrast Patient Name: CALLIE KENNEDY Computed Tomography ACCESSION EXAM DATE/TIME PROCEDURE ORDERING PROVIDER [id number] 04/19/2021 19:54 EST CTA Chest w/ + w/o MELBA TRUONG DANIEL M Contrast CPT code 15813 Q9967 Reason For Exam (CTA Chest w/ + w/o Contrast) dyspnea, pleuritic chest pain, covid positive Report CTA CHEST WITH IV CONTRAST CLINICAL INDICATION: dyspnea, pleuritic chest pain, covid positive. TECHNIQUE: CTA of the chest with IV contrast. Multiplanar reformations. 3-D image post-processing was performed on an independent workstation. COMPARISON: None. FINDINGS: The main and bilateral proximal pulmonary arteries are normally opacified without apparent filling defects. No apparent aneurysm, pseudoaneurysm or aortic dissection. No significant lymph node enlargement or axillary adenopathy. Lungs show patchy and partially confluent, reticular and mostly groundglass opacities scattered bilaterally, in a multifocal pattern and with peripheral distribution, primarily in the lower lobes. No discrete mass, pleural effusion or apparent pneumothorax. Bony thorax grossly unremarkable. IMPRESSION: 1. No evidence of large vessel or central pulmonary emboli. 2. Commonly reported imaging features of Coronavirus disease 2019 (COVID-19) pneumonia are present. Other processes, such as influenza pneumonia and organizing pneumonia, as well as drug toxicity and connective tissue disease, can cause a similar imaging pattern. Follow-up suggested. CT ABDOMEN AND PELVIS WITH CONTRAST CLINICAL INDICATION: dyspnea, pleuritic chest pain, covid positive TECHNIQUE: CT scan of the abdomen and pelvis, with IV contrast. Multiplanar reformations. Computed Tomography Report COMPARISON: January,. FINDINGS: Abdomen: No radiopaque gallstones. Liver without significant abnormality. Subcentimeter hypodensity near bladder dome, too small to adequately characterize, but statistically suggesting cyst or hemangioma. Spleen without significant abnormality. Pancreas without significant abnormality. Kidneys without significant abnormality. Probable subcentimeter right renal cyst. Adrenal glands without significant abnormality. Pelvis: Bowel grossly unremarkable. Appendix probably surgically absent. No significant, free peritoneal fluid or apparent adenopathy. Abdominal aorta is nonaneurysmal. Uterus surgically absent. Axial skeleton grossly intact. IMPRESSION: 1. No acute findings. 2. Postsurgical change. Report Dictated on Workstation: [id number] Final Dictating Physician: MD FRANKLIN WENDELL Signed Date and Time: 04/19/2021 8:13 pm Signed by: MD FRANKLIN WENDELL Transcribed Date and Time: 04/19/2021 8:14 Normal [facility] Comp Metabolic Panelon 04-19 ALP [Catalytic activity/Vol] 70 U/L Normal 38-126 [facility] Comment on above: Order Comment: Chemi stry specimen is slightly hemolyzed. Interpret resultswith caution. Performed By: #### L ACT3, TROPN, CMP3, HEMDF ####[facility] [employer] [address] [address] ALT [Catalytic activity/Vol] 25 U/L Normal 0-34 [facility] Comment on above: Order Comment: Chemi stry specimen is slightly hemolyzed. Interpret resultswith caution. Result Comment: The ALT test is performed by an updated assay method. Please note that the reference intervals have been changed and are now sex specific. Performed By: #### L ACT3, TROPN, CMP3, HEMDF ####[facility] [address] [place] [address] Calcium [Mass/Vol] 8.7 mg/dL Normal 8.4-10.4 [facility] Comment on above: Order Comment: Chemi stry specimen is slightly hemolyzed. Interpret resultswith caution. Performed By: #### L ACT3, TROPN, CMP3, HEMDF ####[facility] [employer] [address] [place] [address] Glucose [Mass/Vol] 99 mg/dL Normal 70-100 [facility] Comment on above: Order Comment: Chemi stry specimen is slightly hemolyzed. Interpret resultswith caution. Performed By: #### L ACT3, TROPN, CMP3, HEMDF ####[place] [address] [place] [address] Urea nitrogen [Mass/Vol] 11 mg/dL Normal 9-20 [facility] Comment on above: Order Comment: Chemi stry specimen is slightly hemolyzed. Interpret resultswith caution. Performed By: #### L ACT3, TROPN, CMP3, HEMDF ####[place] [address] [place] [address] Anion gap [Moles/Vol] 10 mmol/L Normal 3-13 [facility] Comment on above: Order Comment: Chemi stry specimen is slightly hemolyzed. Interpret resultswith caution. Performed By: #### L ACT3, TROPN, CMP3, HEMDF ####[place] [address] [place] [address] AST [Catalytic activity/Vol] 39 U/L Normal 15-46 [facility] Comment on above: Order Comment: Chemi stry specimen is slightly hemolyzed. Interpret resultswith caution. Performed By: #### L ACT3, TROPN, CMP3, HEMDF ####[place] [address] [place] [address] Bilirubin [Mass/Vol] 0.4 mg/dL Normal 0.2-1.3 [facility] Comment on above: Order Comment: Chemi stry specimen is slightly hemolyzed. Interpret resultswith caution. Performed By: #### L ACT3, TROPN, CMP3, HEMDF ####[place] [address] [place] [address] CO2 [Moles/Vol] 26 mmol/L Normal 22-30 [facility] Comment on above: Order Comment: Chemi stry specimen is slightly hemolyzed. Interpret resultswith caution. Performed By: #### L ACT3, TROPN, CMP3, HEMDF ####[place] [address] [place] [address] Creatinine [Mass/Vol] 0.60 mg/dL Normal 0.52-1.25 [facility] Comment on above: Order Comment: Chemi stry specimen is slightly hemolyzed. Interpret resultswith caution. Performed By: #### L ACT3, TROPN, CMP3, HEMDF ####[address] [address] eGFR OTHER > 90.0 Normal >60 [facility] Comment on above: Order Comment: Chemi stry specimen is slightly hemolyzed. Interpret resultswith caution. Result Comment: KDIG O guidelines provide the following GFR categories: Stage GFR(ml/min/1.73 m2) Terms G1 >=90 Normal or high G2 60-89 Mildly decreased* G3a 45-59 Mildly to moderately decreased G3b 30-44 Moderately to severely decreased G4 15-29 Severely decreased G5 <15 Kidney failure *Relative to young adult level. In the absence of evidence of kidney damage, neither GFR category G1 nor G2 fulfill the criteria for CKD. The CKD-EPI equation is validated in individuals 18 years of age and older. Currently the best equation for estimating glomerular filtration rate (GFR) from serum creatinine in children is the Bedside Vargas equation. It is less accurate in patients with extremes of muscle mass, restriction of dietary protein, ingestion of creatine, extra-renal metabolism of creatinine, or treatment with medications that affect renal tubular creatinine secretion. Performed By: #### L ACT3, TROPN, CMP3, HEMDF ####[address] [address] GFR/1.73 sq M.predicted among blacks MDRD (S/P/Bld) [Vol rate/Area] mL/min/{1.73_m2} Normal >60 [facility] Comment on above: Order Comment: Chemi stry specimen is slightly hemolyzed. Interpret resultswith caution. Performed By: #### L ACT3, TROPN, CMP3, HEMDF ####[address] [address] Protein [Mass/Vol] 7.3 g/dL Normal 6.3-8.2 [facility] Comment on above: Order Comment: Chemi stry specimen is slightly hemolyzed. Interpret resultswith caution. Performed By: #### L ACT3, TROPN, CMP3, HEMDF ####[place] [address] [facility] [address] Albumin [Mass/Vol] 4.0 g/dL Normal 3.5-5.0 [facility] Comment on above: Order Comment: Chemi stry specimen is slightly hemolyzed. Interpret resultswith caution. Performed By: #### L ACT3, TROPN, CMP3, HEMDF ####[place] [address] [place] [address] Chloride [Moles/Vol] 100 mmol/L Normal 98-107 [facility] Comment on above: Order Comment: Chemi stry specimen is slightly hemolyzed. Interpret resultswith caution. Performed By: #### L ACT3, TROPN, CMP3, HEMDF ####[address] [facility] [address] Potassium [Moles/Vol] 3.7 mmol/L Normal 3.5-5.1 [facility] Comment on above: Order Comment: Chemi stry specimen is slightly hemolyzed. Interpret resultswith caution. Performed By: #### L ACT3, TROPN, CMP3, HEMDF ####[place] [address] [facility]ENTER[facility]riann[facility] [address] Sodium [Moles/Vol] 135 mmol/L Normal 135-145 [facility] Comment on above: Order Comment: Chemi stry specimen is slightly hemolyzed. Interpret resultswith caution. Performed By: #### L ACT3, TROPN, CMP3, HEMDF ####[address] [facility]ENTER[facility]riann[place] [address] Complete Urinalysison 2020 Appearance (U) Clear Normal Clear [facility] Comment on above: Result Comment: . Performed By: #### VINCENZO ANDERSEN ####[place] [address] [place], [place] #### CUA2 ####[place] [address] [facility] [address] Bilirubin,Urine Negative Normal Negative [facility] Comment on above: Result Comment: . Performed By: #### VINCENZO ANDERSEN ####[place] [address] [place], [place] #### CUA2 ####[facility] [address] [place] [address] Color (U) Light-Yellow Normal Lt. Yellow [facility] Comment on above: Result Comment: . Performed By: #### VINCENZO ANDERSEN ####[facility] [address] [place] [address], [place] #### CUA2 ####[facility] [address] [place] [address] Glucose Ql (U) Normal Normal Normal (<70) [facility] Comment on above: Result Comment: . Performed By: #### VINCENZO ANDERSEN ####[facility] [address] [place] [address], [place] #### CUA2 ####[facility] [address] [place] [address] Ketone,Urine 40 mg/dL Abnormal Negative [facility] Comment on above: Result Comment: . Performed By: #### VINCENZO ANDESREN ####[facility] [address], [place] #### CUA2 ####[facility] [address] [place] [address] Leukocytes,Urine Negative Normal Negative [facility] Comment on above: Result Comment: . Performed By: #### VINCENZO ANDERSEN ####[facility] [address] [place] [address], [place] #### CUA2 ####[facility] [address] [place] [address] Nitrites,Urine Negative Normal Negative [facility] Comment on above: Result Comment: . Performed By: #### VINCENZO ANDERSEN ####[facility] [address], [place] #### CUA2 ####[facility] [address] [place] [address] Occult Blood,Urine Negative Normal Negative [facility] Comment on above: Result Comment: . Performed By: #### VINCENZO ANDERSEN ####[facility] [address], [place] #### CUA2 ####[facility] [place] [address] pH,Urine 6.0 Normal 5.0-8.0 [facility] [facility] Comment on above: Result Comment: . Performed By: #### VINCENZO ANDERSEN ####[place] [id number] [facility] [place] [place] #### CUA2 ####[facility] [place] [address] Specific [place],Urine > 1.030 Abnormal 1.005 - 1.030 [facility] Comment on above: Result Comment: . Performed By: #### VINCENZO ANDERSEN ####[facility] [employer] [id number] [facility] [place] #### CUA2 ####[facility] [place] [address] Total Protein,Urine Negative Normal Negative [facility] Comment on above: Result Comment: . Performed By: #### VINCENZO ANDERSEN ####[place] [id number] [facility] [place] #### CUA2 ####[facility] [place] [address] Urobilinogen,Urine Normal Normal Normal (0-1) [facility] Comment on above: Result Comment: . Performed By: #### VINCENZO ANDERSEN ####[place] [id number] [facility] [place] #### CUA2 ####[facility] [place] [address] Comprehensive Metabolic Pane jose juan 04-19-2021 Albumin [Mass/Vol] 4.0 g/dL 3.5 - 5.0 g/dL [facility] ALP (Bld) [Catalytic activity/Vol] 70 U/L 38 - 126 U/L [facility] ALT [Catalytic activity/Vol] 25 U/L 0 - 34 U/L [facility] Comment on above: The ALT test is perf ormed by an updated assay method. Please note that the reference intervals have been changed and are now sex specific. Anion gap [Moles/Vol] 10 mmol/L 3 - 13 mmol/L [facility] AST [Catalytic activity/Vol] 39 U/L 15 - 46 U/L [facility] Bilirubin [Mass/Vol] 0.4 mg/dL 0.2 - 1 .3 mg/dL [facility] Calcium [Mass/Vol] 8.7 mg/dL 8.4 - 10. 4 mg/dL [facility] Chloride [Moles/Vol] 100 mmol/L 98 - 10 7 mmol/L [facility] CO2 [Moles/Vol] 26 mmol/L 22 - 30 mmol/L [facility] Creatinine [Mass/Vol] 0.6 mg/dL 0.52 - 1.25 mg/dL [facility] EGFR IF NonAfrican Wallisian >90.0 >60 mL/min [facility] Comment on above: KDIGO guidelines pro vide the following GFR categories: Stage GFR(ml/min/1.73 m2) Terms G1 >=90 Normal or high G2 60-89 Mildly decreased* G3a 45-59 Mildly to moderately decreased G3b 30-44 Moderately to severely decreased G4 15-29 Severely decreased G5 <15 Kidney failure *Relative to young adult level. In the absence of evidence of kidney damage, neither GFR category G1 nor G2 fulfill the criteria for CKD. The CKD-EPI equation is validated in individuals 18 years of age and older. Currently the best equation for estimating glomerular filtration rate (GFR) from serum creatinine in children is the Bedside Vargas equation. It is less accurate in patients with extremes of muscle mass, restriction of dietary protein, ingestion of creatine, extra-renal metabolism of creatinine, or treatment with medications that affect renal tubular creatinine secretion. Free PSA/Total PSA [Mass fraction] 7.3 g/dL 6.3 - 8.2 g/dL [facility] GFR/1.73 sq M.predicted among blacks MDRD (S/P/Bld) [Vol rate/Area] mL/min/{1.73_m2} >60 mL/min [facility] Glucose [Mass/Vol] 99 mg/dL 70 - 100 mg/dL [facility] Urea nitrogen (BldV) [Mass/Vol] 11 mg/dL 9 - 20 mg/dL [facility] Test Performed by [facility], [address] [place], [place] [address] Chemistry specimen is slightly hemolyzed. Interpret results with caution. [facility] ED Provider Noteon 1 ED Provider Note [facility] ED eMERGENCY dEPARTMENT eNCOUnter Pt Name: Callie Kennedy Birthdate 1970 Date of evaluation: 04/19/2021 Provider: JONNIE Wolf CNP This patient was seen in conjunction with Dr. Riojas CHIEF COMPLAINT Chief Complaint Patient presents with ? Positive For Covid-19 tested positive 10 days ago at doctors, increased symptoms ? Fatigue HISTORY OF PRESENT ILLNESS (Location/Symptom, Timing/Onset,Context/Set ting, Quality, Duration, Modifying Factors, Severity) Note limiting factors. HPI Callie Kennedy is a 51 y.o. female who presents to the emergency department shortness of breath chest tightness, pain when she takes a deep breath, cough, fatigue generalized weakness, she also complains of diarrhea with blood in the stool. She has a history of ulcerative colitis. She has not been on her Humira in 3-1/2weeks because of her COVID-19 infection. She tested +10 days ago. Complains of fatigue, nausea vomiting, lower abdominal pain and blood in the stool. Denies recent travel or surgery or any other complaints. Nursing Notes were reviewed. REVIEW OF SYSTEMS (2+ for4; 10+ for level 5) Review of Systems Constitutional: Negative for activity change, appetite change, chills and fever. HENT: Negative for congestion, ear discharge, ear pain, hearing loss, postnasal drip, rhinorrhea and sore throat. Eyes: Negative for discharge and redness. Respiratory: Positive for cough and shortness of breath. Negative for chest tightness and wheezing. Cardiovascular: Positive for chest pain. Negative for palpitations. Gastrointestinal: Positive for abdominal pain, blood in stool and diarrhea. Negative for anal bleeding, nausea and vomiting. Genitourinary: Negative for dysuria. Musculoskeletal: Negative for arthralgias and myalgias. Skin: Negative for color change. Neurological: Negative for dizziness, tremors, syncope, weakness, light-headedness and headaches. Hematological: Negative for adenopathy. Psychiatric/Behavioral: Negative for agitation and confusion. All other systems reviewed and are negative. PAST MEDICAL HISTORY Past Medical History: Diagnosis Date ? Brachial plexus disorders ? DVT (deep vein thrombosis) in ? Neck sprain ? Shoulder sprain ? Ulcerative (chronic) enterocolitis (HCC) SURGICALHISTORY Past Surgical History: Procedure Laterality Date ? ANTERIOR COMPARTMENT DECOMPRESSION 2017 Dr. Jacob [place], [place] ? BREAST LUMPECTOMY 1991 x3 ? SECTION 02/27/2002 twins ? FINGER TRIGGER RELEASE Right 2006 [facility] ? HYSTERECTOMY 03/23/2010 [place] @ [facility] ? LAPAROSCOPY 2004 [id number] Dr. Jasso @ [facility] & Dr. Jarvis @ [place], [place] ? SHOULDER ARTHROSCOPY Right 12/13/2018 Dr. Hernandez @ [facility] ? SHOULDER SURGERY Right 11/23/2019 RT shoulder manipulation Under Anes, MSK @ [facility] ? TENDON RELEASE 05/28/[address] [address] Patel @ [facility] CURRENT MEDICATIONS Previous Medications ADALIMUMAB (HUMIRA) 40 MG/0.8ML INJECTION Inject 40 mg into the skin once 40mg/0.8ml every other week subcutaneously BACLOFEN (LIORESAL) 10 MG TABLET Take 10 mg by mouth daily Take one tablet by mouth every day BALSALAZIDE (COLAZAL) 750 MG CAPSULE Take 2,250 mg by mouth 3 times daily 750 mg 3 by mouth TID IBUPROFEN (ADVIL;MOTRIN) 600 MG TABLET TAKE 1 TABLET BY MOUTH TWICE A DAY WITH FOOD METAXALONE (SKELAXIN) 800 MG TABLET Take 800 mg by mouth 3 times daily MONTELUKAST (SINGULAIR) 10 MG TABLET Take 10 mg by mouth nightly ONDANSETRON (ZOFRAN) 4 MG TABLET Take 1 tablet by mouth 3 times daily as needed for Nausea or Vomiting OXYCODONE-ACETAMINOPHEN (PERCOCET) 5-325 MG PER TABLET Take 1 tablet by mouth 2 times daily. TOPIRAMATE (TOPAMAX) 25 MG TABLET 2 times daily TRAZODONE (DESYREL) 100 MG TABLET Take 100 mg by mouth nightly VENLAFAXINE (EFFEXOR XR) 75 MG EXTENDED RELEASE CAPSULE TAKE 1 CAPSULE BY MOUTH DAILY Cortisone and Codeine FAMILY HISTORY Family History Problem Relation Age of Onset ? Heart Disease Mother ? Arthritis Mother ? Heart Disease Father SOCIAL HISTORY Social History Socioeconomic History ? Marital status: Spouse name: None ? Number of children: None ? Years of education: None ? Highest education level: None Occupational History ? None Tobacco Use ? Smoking status: Former Smoker ? Smokeless tobacco: Never Used Vaping Use ? Vaping Use: Some days Substance and Sexual Activity ? Alcohol use: Yes Comment: occassional ? Drug use: Never ? Sexual activity: Yes Partners: Female Other Topics Concern ? None Social History Narrative ? None Social Determinants of Health Financial Resource Strain: ? Difficulty of Paying Living Expenses: Not on file Food Insecurity: ? Worried About Running Out of Food in the Last Year: Not on file ? Ran Out of Food in the Last Year: Not on file Transportation Needs: ? Lack of Leach (more content not included)... Normal [facility] ED Provider Note Emergency Department Encounter [facility] ED Patient: Callie Kennedy : 1970 Date of Evaluation: 04/19/2021 ED Supervising Physician: Gwen Riojas DO I independently examined and evaluated Callie Kennedy. In brief, ED Course as of 04/19/212230 Sun Apr 19, 20211923 Patient is a 51-year-old female with past medical history of ulcerative colitis who presents the emergency department today with abdominal cramping and bloody diarrhea as well as feeling of chest burning when she takes a deep breath. She states she was diagnosed with Covid approximately 10 or 11 days ago. Denies any fevers or chills but does have some mild cough. Does not feel significantly short of breath. On exam patient's vital signs are remarkable for saturating 94% on room air at rest, minimally tachycardic with heart rate of 115. Abdomen soft with mild tenderness to palpation, lungs clear to auscultation bilaterally. We will obtain CT abdomen, CTA to evaluate for hematochezia as well as to evaluate for PE given her worsening pleuritic chest pain in setting of Covid. We will plan admit patient for further evaluation and management. [BM] 2026 Lab work including CBC, CMP, troponin and lactic acid are all within normal limits. [BM] 2026 CTA showing evidence of Covid pneumonia no evidence of pulmonary embolism. [BM] 2026 CT abdomen pelvis showing no acute process. [BM] ED Course User Index [BM] Gwen Riojas DO SPO2 with ambulation became 92% and patient became tachycardic. Patient will be admitted for further evaluation and management of her Covid pneumonia. Was given dose of steroids here in the emergency department All diagnostic, treatment, and disposition decisions were made by myself in conjunction with the AKIKO. For all further details of the patient's emergency department visit, please see their documentation. (Please note that portions of this note may have been completed with a voice recognition program. Efforts were made to edit the dictations but occasionally words are mis-transcribed.) Gwen Riojas DO [employer] Gwen Riojas DO 04/19/21 1651 Normal [facility] Hemogram (CBC) w/Auto Diffon 04-19-2021 Absolute Baso # 0.0 10*3/uL 0.0 - 0.2 10*3/uL [facility] Absolute Neut # 2.1 10*3/uL 1.8 - 7.0 10*3/uL [facility] Basophils/100 WBC (Bld) 0.9 % 0.0 - 2.0 % [facility] Eosinophils (Bld) [#/Vol] 0.0 10*3/uL 0.0 - 0.5 10*3/uL [facility] Eosinophils/100 WBC (Bld) 0.1 % Low 1.0 - 6.0 % [facility] Granulocytes/100 WBC (Bld) 46.6 % 40.0 - 80.0 % [facility] Hematocrit (Bld) [Volume fraction] 40.3 % 35.0 - 47.0 % [facility] Hemoglobin.gastroint estinal spec 1 Ql (Stl) 13.9 g/dL 11.7 - 16.0 g/dL [facility] Interpretation and review of laboratory results Abnormal [facility] Lymphocytes (Bld) [#/Vol] 2.0 10*3/uL 1.0 - 4.3 10*3/uL [facility] Lymphocytes/100 WBC (Bld) 43.9 % High 20.0 - 40.0 % [facility] MCH (RBC) [Entitic mass] 30.4 pg 26.0 - 34.0 pg [facility] MCHC (RBC) [Mass/Vol] 34.4 % 32.0 - 36.0 % [facility] MCV (RBC) [Entitic vol] 88.4 fL 79.0 - 98.0 fL [facility] Monocytes (Bld) [#/Vol] 0.4 10*3/uL 0.0 - 0.8 10*3/uL [facility] Monocytes/100 WBC (Bld) 8.5 % 2.0 - 10.0 % [facility] Platelet distribution width (Bld) [Ratio] 12.1 % 11.5 - 14.5 % [facility] Platelet mean volume (Bld) [Entitic vol] 8.9 fL 7.4 - 10.4 fL [facility] Platelets (Bld) [#/Vol] 194 10*3/uL 140 - 440 10*3/uL [facility] RBC (Bld) [#/Vol] 4.56 10*6/uL 3.80 - 5.2 0 10*6/uL [facility] WBC (Bld) [#/Vol] 4.5 10*3/uL 3.6 - 10.7 10*3/uL [facility] Test Performed by [facility], [address] [place], [place] [address] [facility] w/ Autodiffon 04-19 Abs Baso Cnt 0.0 10*3/uL Normal 0.0-0.2 [facility] Comment on above: Performed By: #### L ACT3, TROPN, CMP3, HEMDF #### [facility] [address] [place] [address] Abs Neutrophile Cnt 2.1 10*3/uL Normal 1.8-7.0 [facility] Comment on above: Performed By: #### L ACT3, TROPN, CMP3, HEMDF #### [facility] [address] [place] [address] Basophils/100 WBC (Bld) 0.9 % Normal 0.0-2.0 [facility] Comment on above: Performed By: #### L ACT3, TROPN, CMP3, HEMDF #### [facility] [address] [place] [address] Eosinophils (Bld) [#/Vol] 0.0 10*3/uL Normal 0.0-0.5 [facility] Comment on above: Performed By: #### L ACT3, TROPN, CMP3, HEMDF #### [facility] [address] [place] [address] Eosinophils/100 WBC (Bld) 0.1 % Low 1.0-6.0 [facility] Comment on above: Performed By: #### L ACT3, TROPN, CMP3, HEMDF #### [facility] [address] [place] [address] Erythrocyte distribution width (RBC) [Ratio] 12.1 % Normal 11.5-14.5 [facility] Comment on above: Performed By: #### L ACT3, TROPN, CMP3, HEMDF #### [facility] [address] [place] [address] Granulocytes/100 WBC (Bld) 46.6 % Normal 40.0-80.0 [facility] Comment on above: Performed By: #### L ACT3, TROPN, CMP3, HEMDF #### [facility] [address] [place] [address] Hematocrit (Bld) [Volume fraction] 40.3 % Normal 35.0-47.0 [facility] Comment on above: Performed By: #### L ACT3, TROPN, CMP3, HEMDF #### [facility] [address] [place] [address] Hemoglobin (Bld) [Mass/Vol] 13.9 g/dL Normal 11.7-16.0 [facility] Comment on above: Performed By: #### L ACT3, TROPN, CMP3, HEMDF #### [facility] [address] [place] [address] Lymphocytes (Bld) [#/Vol] 2.0 10*3/uL Normal 1.0-4.3 [facility] Comment on above: Performed By: #### L ACT3, TROPN, CMP3, HEMDF #### [facility] [address] [place] [address] Lymphocytes/100 WBC (Bld) 43.9 % High 20.0-40.0 [facility] Comment on above: Performed By: #### L ACT3, TROPN, CMP3, HEMDF #### [facility] [address] [place] [address] MCH (RBC) [Entitic mass] 30.4 pg Normal 26.0-34.0 [facility] Comment on above: Performed By: #### L ACT3, TROPN, CMP3, HEMDF #### [facility] [address] [place] [address] MCHC 34.4 % Normal 32.0-36.0 [facility] Comment on above: Performed By: #### L ACT3, TROPN, CMP3, HEMDF #### [facility] [address] [place] [address] MCV (RBC) [Entitic vol] 88.4 fL Normal 79.0-98.0 [facility] Comment on above: Performed By: #### L ACT3, TROPN, CMP3, HEMDF #### [facility] [address] [place] [address] Monocytes (Bld) [#/Vol] 0.4 10*3/uL Normal 0.0-0.8 [facility] Comment on above: Performed By: #### L ACT3, TROPN, CMP3, HEMDF #### [facility] [address] [place] [address] Monocytes/100 WBC (Bld) 8.5 % Normal 2.0-10.0 [facility] Comment on above: Performed By: #### L ACT3, TROPN, CMP3, HEMDF #### [facility] [address] [place] [address] Platelet mean volume (Bld) [Entitic vol] 8.9 fL Normal 7.4-10.4 [facility] Comment on above: Performed By: #### L ACT3, TROPN, CMP3, HEMDF #### [facility] [address] [place] [address] Platelets (Bld) [#/Vol] 194 10*3/uL Normal 140-440 [facility] Comment on above: Performed By: #### L ACT3, TROPN, CMP3, HEMDF #### [facility] [address] [place] [address] RBC (Bld) [#/Vol] 4.56 10*6/uL Normal 3.80-5.20 [facility] Comment on above: Performed By: #### L ACT3, TROPN, CMP3, HEMDF #### [facility] [address] [place] [address] WBC (Bld) [#/Vol] 4.5 10*3/uL Normal 3.6-10.7 [facility] Comment on above: Performed By: #### L ACT3, TROPN, CMP3, HEMDF #### [facility] [address] [place] [address] Lactic Acidon 04-19-2021 Lactate [Moles/Vol] 1.0 mmol/L Normal 0.7-2.0 [facility] Comment on above: Performed By: #### L ACT3, TROPN, CMP3, HEMDF #### [facility] [address] [place] [address] Lactic Acid, Plasmaon 2020 Lactate [Moles/Vol] 1 mmol/L 0.7 - 2. 0 mmol/L [facility] Performed by [facility], [address] [facility] No Panel Informationon 04-19 Radiology Study observation (narrative) [facility] Work Phone: Troponin Ion 04-19-2021 Troponin I.cardiac [Mass/Vol] ng/mL Normal 0.000-0.034 [facility] Comment on above: Order Comment: Chemi stry specimen is slightly hemolyzed. Interpret resultswith caution. Result Comment: . Performed By: #### L ACT3, TROPN, CMP3, HEMDF ####[facility] [place] [address] Troponin x1on 04-19-2021 Troponin I.cardiac [Mass/Vol] ng/mL 0.000 - 0.034 ng/mL [facility] Comment on above: . Test Performed by [facility], [address] [place] [address] Chemistry specimen is slightly hemolyzed. Interpret results with caution. [facility] Urinalysison 04-19-2021 Appearance (U) Clear Clear NA [facility] Comment on above: . Bilirubin Urine Negative Negative mg/dL [facility] Comment on above: . Color (U) Light-Yellow Lt. Yellow NA [facility] Comment on above: . Glucose, Ur Normal Normal (<70) mg/dL [facility] Comment on above: . Interpretation and review of laboratory results Abnormal [facility] Ketones Ql (U) 40 mg/dL Abnormal Negative [facility] Comment on above: . LEUKOCYTES, UA Negative Negative Linus/uL [facility] Comment on above: . Nitrite, Urine Negative Negative NA [facility] Comment on above: . Occult Blood,Urine Negative Negative mg/dL [facility] Comment on above: . pH (U) 6.0 [pH] [facility] Comment on above: . Specific [place], Urine >1.030 Abnormal [facility] Comment on above: . Total Protein, Urine Negative Negativ e mg/dL [facility] Comment on above: . Urobilinogen, Urine Normal Normal ( 0-1) mg/dL [facility] Comment on above: . Test Performed by [facility], [address], [place], [place] [address] [facility] CBC Auto Differentialon 10-0 -2019 Anisocytosis Ql (Bld) 1+ [place], [place] Atypical Lymphocytes Relative 1.0 % 0 - 4 % [place] Basophils (Bld) [#/Vol] 0.00 10*3/uL [place] Basophils/100 WBC (Bld) 0.0 % 0 - 2 % [place] Eosinophils (Bld) [#/Vol] 0.00 10*3/uL Low [place] Eosinophils/100 WBC (Bld) 0 % 0 - 6 % [place] Erythrocyte distribution width (RBC) [Ratio] 16.8 fL High 11.5 - 15 fL [place] Hematocrit (Bld) [Volume fraction] 38.0 % 34 - 48 % [place] Hemoglobin (Bld) [Mass/Vol] 12.2 g/dL 11.5 - 15.5 g/dL [place] Interpretation and review of laboratory results Abnormal [place] Lymphocytes (Bld) [#/Vol] 1.90 10*3/uL [place] Lymphocytes/100 WBC (Bld) 13.0 % Low 20 - 42 % [place] MCH (RBC) [Entitic mass] 32.8 pg 26 - 35 pg [place] MCHC (RBC) [Mass/Vol] 32.1 % 32 - 34.5 % [place] MCV (RBC) [Entitic vol] 102.2 fL High 80 - 99.9 fL [place] Monocytes (Bld) [#/Vol] 0.27 10*3/uL [place] Monocytes/100 WBC (Bld) 2.0 % 2 - 12 % [place] Myelocyte Percent 2.0 % 0 - 0 % [place] Neutrophils Absolute 11.42 High [place] Neutrophils/100 WBC (Bld) 82.0 % High 43 - 80 % [place] Platelet mean volume (Bld) [Entitic vol] 8.6 fL 7 - 12 fL [place] Platelets (Bld) [#/Vol] 284 10*3/uL [place] Poikilocytes 1+ [place] Polychromasia 2+ [place] RBC (Bld) [#/Vol] 3.72 10*6/uL [place] Tear Drop Cells 1+ [place] WBC (Bld) [#/Vol] 13.6 10*3/uL High [place] CBC With Platelet and Differ entialon 03-06-2020 Anisocytosis Ql (Bld) 1+ Normal [facility] Atypical Lymphs 1.0 % Normal 0.0-4.0 [facility] Basophils (Bld) [#/Vol] 0.00 E9/L Normal 0.00-0.20 [facility] Basophils/100 WBC (Bld) 0.0 % Normal 0.0-2.0 [facility] Eosinophils (Bld) [#/Vol] 0.00 E9/L Low 0.05-0.50 [facility] Eosinophils/100 WBC (Bld) 0.0 % Normal 0.0-6.0 [facility] Lymphocytes (Bld) [#/Vol] 1.90 E9/L Normal 1.50-4.00 [facility] Lymphocytes/100 WBC (Bld) 13.0 % Low 20.0-42.0 [facility] Monocytes (Bld) [#/Vol] 0.27 E9/L Normal 0.10-0.95 [facility] Monocytes/100 WBC (Bld) 2.0 % Normal 2.0-12.0 [facility] Myelocytes 2.0 % Normal 0-0 [facility] Neutrophils (Bld) [#/Vol] 11.42 E9/L High 1.80-7.30 [facility] Neutrophils/100 WBC (Bld) 82.0 % High 43.0-80.0 [facility] Poikilocytosis 1+ Normal [facility] Polychromasia 2+ Normal [facility] Tear Drop Cells 1+ Normal [facility] Erythrocyte distribution width (RBC) [Ratio] 16.8 fL High 11.5-15.0 [facility] Hematocrit (Bld) [Volume fraction] 38.0 % Normal 34.0-48.0 [facility] Hemoglobin (Bld) [Mass/Vol] 12.2 g/dL Normal 11.5-15.5 [facility] MCH (RBC) [Entitic mass] 32.8 pg Normal 26.0-35.0 [facility] MCHC (RBC) [Mass/Vol] 32.1 % Normal 32.0-34.5 [facility] MCV (RBC) [Entitic vol] 102.2 fL High 80.0-99.9 [facility] Platelet mean volume (Bld) [Entitic vol] 8.6 fL Normal 7.0-12.0 [facility] Platelets (Bld) [#/Vol] 284 E9/L Normal 130-450 [facility] RBC (Bld) [#/Vol] 3.72 E12/L Normal 3.50-5.50 [facility] WBC (Bld) [#/Vol] 13.6 E9/L High 4.5-11.5 [facility] Comprehensive Metabolic Pane jose juan 03-06-2020 Albumin [Mass/Vol] 4.1 g/dL Normal 3.5-5.2 [facility] ALP [Catalytic activity/Vol] 84 U/L Normal 35-104 [facility] ALT [Catalytic activity/Vol] 34 U/L High 0-32 [facility] Anion gap [Moles/Vol] 11 mmol/L Normal 7-16 [facility] AST [Catalytic activity/Vol] 18 U/L Normal 0-31 [facility] Bilirubin [Mass/Vol] 0.3 mg/dL Normal 0.0-1.2 [facility] Calcium [Mass/Vol] 9.2 mg/dL Normal 8.6-10.2 [facility] Chloride [Moles/Vol] 96 mmol/L Low 98-107 [facility] CO2 [Moles/Vol] 30 mmol/L High 22-29 [facility] Creatinine [Mass/Vol] 0.6 mg/dL Normal 0.5-1.0 [facility] GFR/1.73 sq M predicted among blacks MDRD (S/P/Bld) [Vol rate/Area] mL/min/{1.73_m2} Normal [facility] GFR/1.73 sq M predicted among non-blacks MDRD (S/P/Bld) [Vol rate/Area] mL/min/{1.73_m2} Normal >=60 [facility] Comment on above: Result Comment: [employer] gm Kidney Disease: less than 60 ml/min/1.73 sq.m. Kidney Failure: less than 15 ml/min/1.73 sq.m. Results valid for patients 18 years and older. Glucose [Mass/Vol] 131 mg/dL High 74-99 [facility] Potassium [Moles/Vol] 4.6 mmol/L Normal 3.5-5.0 [facility] Protein [Mass/Vol] 7.1 g/dL Normal 6.4-8.3 [facility] Sodium [Moles/Vol] 137 mmol/L Normal 132-146 [facility] Urea nitrogen [Mass/Vol] 14 mg/dL Normal 6-20 [facility] Albumin [Mass/Vol] 4.1 g/dL 3.5 - 5.2 g/dL [place] ALP [Catalytic activity/Vol] 84 U/L 35 - 104 U/L [place] ALT [Catalytic activity/Vol] 34 U/L High 0 - 32 U/L [place] Anion gap [Moles/Vol] 11 mmol/L 7 - 16 mmol/L [place] AST [Catalytic activity/Vol] 18 U/L 0 - 31 U/L [place] Bilirubin Ql (U) 0.3 mg/dL 0 - 1.2 mg/dL [place] Calcium [Mass/Vol] 9.2 mg/dL 8.6 - 10. 2 mg/dL [place] Chloride [Moles/Vol] 96 mmol/L Low 98 - 10 7 mmol/L [place] CO2 [Moles/Vol] 30 mmol/L High 22 - 29 mmol/L [place] Creatinine [Mass/Vol] 0.6 mg/dL 0.5 - 1 mg/dL [place] GFR >60 [place] GFR Non- >60 >=60 mL/min/1.73 [place] Comment on above: Chronic Kidney Disea se: less than 60 ml/min/1.73 sq.m. Kidney Failure: less than 15 ml/min/1.73 sq.m. Results valid for patients 18 years and older. Glucose [Mass/Vol] 131 mg/dL High 74 - 99 mg/dL [place], [place] Interpretation and review of laboratory results Abnormal [place] Potassium [Moles/Vol] 4.6 mmol/L 3.5 - 5 mmol/L [place] Protein [Mass/Vol] 7.1 g/dL 6.4 - 8.3 g/dL [place] Sodium [Moles/Vol] 137 mmol/L 132 - 146 mmol/L [place] Urea nitrogen [Mass/Vol] 14 mg/dL 6 - 20 mg/dL [place] Otheron 03-06-2020 Unremarkable right u pper quadrant ultrasound. Unremarkable Doppler evaluation of hepatic vessels. [place] EXAMINATION: DOPPLER EVALUATION; LIMITED ABDOMINAL ULTRASOUND 03/06/2020 2:27 pm COMPARISON: None. HISTORY: ORDERING SYSTEM PROVIDED HISTORY: Abdominal distention TECHNOLOGIST PROVIDED HISTORY: What reading provider will be dictating this exam?->CRC Right upper quadrant ultrasound with Doppler evaluation of the hepatic vessels. FINDINGS: Grayscale and duplex imaging of the right upper quadrant was performed with spectral Doppler waveform analysis. The liver has a homogeneous echotexture with no focal masses identified by ultrasound. There is no intrahepatic biliary dilatation. No regional perihepatic ascites. Liver surface is smooth. The gallbladder shows no evidence of cholelithiasis or sonographic findings of cholecystitis. The patient did not have a positive sonographic Magana's sign. Common bile duct size within normal limits measuring 3.2 mm. Right kidney appears unremarkable without evidence of hydronephrosis. Visualized portions of the pancreas appear unremarkable. Doppler interrogation of the hepatic vessels was performed. Flow in the portal vein is hepatopetal. A recanalized umbilical vein is not identified. Visualized hepatic veins appear patent with normal directional flow. Hepatic artery has an arterial spectral Doppler waveform. [place], [place] Caleb, Mhy Incoming Radiant Results From [employer] - 03/06/2020 4:29 PM EDT EXAMINATION: DOPPLER EVALUATION; LIMITED ABDOMINAL ULTRASOUND 03/06/2020 2:27 pm COMPARISON: None. HISTORY: ORDERING SYSTEM PROVIDED HISTORY: Abdominal distention TECHNOLOGIST PROVIDED HISTORY: What reading provider will be dictating this exam?->CRC Right upper quadrant ultrasound with Doppler evaluation of the hepatic vessels. FINDINGS: Grayscale and duplex imaging of the right upper quadrant was performed with spectral Doppler waveform analysis. The liver has a homogeneous echotexture with no focal masses identified by ultrasound. There is no intrahepatic biliary dilatation. No regional perihepatic ascites. Liver surface is smooth. The gallbladder shows no evidence of cholelithiasis or sonographic findings of cholecystitis. The patient did not have a positive sonographic Magana's sign. Common bile duct size within normal limits measuring 3.2 mm. Right kidney appears unremarkable without evidence of hydronephrosis. Visualized portions of the pancreas appear unremarkable. Doppler interrogation of the hepatic vessels was performed. Flow in the portal vein is hepatopetal. A recanalized umbilical vein is not identified. Visualized hepatic veins appear patent with normal directional flow. Hepatic artery has an arterial spectral Doppler waveform. IMPRESSION: Unremarkable right upper quadrant ultrasound. Unremarkable Doppler evaluation of hepatic vessels. [place] Sedimentation Rateon Sedimentation Rate 8 mm/Hr Normal 0-20 [facility] Sed Rate 8 [place] US ABDOMEN LIMITEDon US ABDOMEN LIMITED EXAMINATION: DOPPLER EVALUATION; LIMITED ABDOMINAL ULTRASOUND 03/06/2020 2:27 pm COMPARISON: None. HISTORY: ORDERING SYSTEM PROVIDED HISTORY: Abdominal distention TECHNOLOGIST PROVIDED HISTORY: What reading provider will be dictating this exam?->CRC Right upper quadrant ultrasound with Doppler evaluation of the hepatic vessels. FINDINGS: Grayscale and duplex imaging of the right upper quadrant was performed with spectral Doppler waveform analysis. The liver has a homogeneous echotexture with no focal masses identified by ultrasound. There is no intrahepatic biliary dilatation. No regional perihepatic ascites. Liver surface is smooth. The gallbladder shows no evidence of cholelithiasis or sonographic findings of cholecystitis. The patient did not have a positive sonographic Magana's sign. Common bile duct size within normal limits measuring 3.2 mm. Right kidney appears unremarkable without evidence of hydronephrosis. Visualized portions of the pancreas appear unremarkable. Doppler interrogation of the hepatic vessels was performed. Flow in the portal vein is hepatopetal. A recanalized umbilical vein is not identified. Visualized hepatic veins appear patent with normal directional flow. Hepatic artery has an arterial spectral Doppler waveform. IMPRESSION: Unremarkable right upper quadrant ultrasound. Unremarkable Doppler evaluation of hepatic vessels. Interpreted by: Rasheed Lisa MD Signed by: Rasheed Lisa MD 03/06/20 Final result Normal [facility] US DUP ABD PEL RETRO SCROT L IMITEDon 03-06-2020 US DUP ABD PEL RETRO SCROT LIMITED EXAMINATION: DOPPLER EVALUATION; LIMITED ABDOMINAL ULTRASOUND 03/06/2020 2:27 pm COMPARISON: None. HISTORY: ORDERING SYSTEM PROVIDED HISTORY: Abdominal distention TECHNOLOGIST PROVIDED HISTORY: What reading provider will be dictating this exam?->CRC Right upper quadrant ultrasound with Doppler evaluation of the hepatic vessels. FINDINGS: Grayscale and duplex imaging of the right upper quadrant was performed with spectral Doppler waveform analysis. The liver has a homogeneous echotexture with no focal masses identified by ultrasound. There is no intrahepatic biliary dilatation. No regional perihepatic ascites. Liver surface is smooth. The gallbladder shows no evidence of cholelithiasis or sonographic findings of cholecystitis. The patient did not have a positive sonographic Magana's sign. Common bile duct size within normal limits measuring 3.2 mm. Right kidney appears unremarkable without evidence of hydronephrosis. Visualized portions of the pancreas appear unremarkable. Doppler interrogation of the hepatic vessels was performed. Flow in the portal vein is hepatopetal. A recanalized umbilical vein is not identified. Visualized hepatic veins appear patent with normal directional flow. Hepatic artery has an arterial spectral Doppler waveform. IMPRESSION: Unremarkable right upper quadrant ultrasound. Unremarkable Doppler evaluation of hepatic vessels. Interpreted by: Rasheed Lisa MD Signed by: Rasheed Lisa MD 03/06/20 Final result Normal [facility] Calprotectin, Fecalon 2019 Calprotectin, Comment SEE BELOW Normal [facility] Comment on above: Result Comment: INTE RPRETIVE INFORMATION: INTERPRETIVE INFORMATION: Calprotectin, Fecal <50.0 mg/kg : Normal 50.0-120.0 mg/kg: Borderline. Test should be re-evaluated in 4-6 weeks. >120.0 mg/kg : Abnormal Performing Laboratory: [facility] [address] [place] [address] Performed By: #### G FR #### [place] [address] Calprotectin, Interp Abnormal Normal [facility] Comment on above: Performed By: #### G FR #### [place] [address] Protein [Mass/Vol] 2330.0 mg/kg High <50.0 [facility] Comment on above: Performed By: #### G FR #### [place] [address] IBD Serology Disease Panelon 02-13-2020 Anti Neutro Cytopl Ab IgG <1:20 Normal [facility] Comment on above: Result Comment: Refe rence range: <1:20 (NOTE) The ANCA IFA is <1:20; therefore, no further testing will be performed. INTERPRETIVE INFORMATION: Anti-Neutrophil Cyto Ab, IgG Neutrophil Cytoplasmic Antibodies (C-ANCA = granular cytoplasmic staining, P-ANCA = perinuclear staining) are found in the serum of over 90 percent of patients with certain necrotizing systemic vasculitides, and usually in less than 5 percent of patients with collagen vascular disease or arthritis. Performed By: #### G FR #### [place] [address] Inf Bowel Dis Interp SEE NOTE Normal [facility] Comment on above: Result Comment: (NOT E) Access [employer] Enhanced Report using either link below: -Direct access: [email or web address] Username, Password: [email or web address] Username: [email or web address] Password: [email or web address] Performed By: [employer] [address] [place] [id number] [employer] Operator: Livia Ernst MD Performing Laboratory: Performed By: #### G FR #### [place] [address] Result Comment: (NOT E) INTERPRETIVE INFORMATION: Inflammatory Bowel Disease Interpretation ASCA Atypical P-ANCA* Ab Profile IgG and/or IgA >24.9.........ND.............Suggests CD IgG and IgA <20.1............Obs............Suggests UC IgG and/or IgA >20.0.........Obs......Equivocal for IBD IgG and/or IgA 20.1-24.9.....ND.......Equivocal for IBD IgG and IgA <20.1............ND.....IBD not suggested *The atypical pattern is either observed (Obs) or not detected (ND). ANCA patterns other than atypical p-ANCA are not associated with IBD. Atypical p-ANCA antibodies are found in 50-70 percent of patients with ulcerative colitis (UC) and in about 20 percent of individuals with Crohn disease (CD). A negative result does not rule out IBD. References: Hernandez GE, Thierno VA, Meagan C, Jina AW, Pa TR, Carter VW, Yeimy PP. Diagnostic precision of anti-Saccharomyces cerevisiae antibodies and perinuclear antineutrophil cytoplasmic antibodies in inflammatory bowel disease. Am J Gastroenterol. 2006;101(10):2410-22. S. Cerevisiae IgA 6.9 Normal [facility] Comment on above: Result Comment: Refe rence range: 0.0 to 24.9 Unit: Units (NOTE) INTERPRETIVE INFORMATION: S. cerevisiae Antibody, IgA and IgG 20.0 Units or less ........ Negative 20.1 to 24.9 Units ......... Equivocal 25.0 Units or greater ...... Positive Saccharomyces cerevisiae IgG antibodies are found in 60-70 percent of Crohn disease (CD) patients and 10-15 percent of ulcerative colitis (UC) patients. Saccharomyces cerevisiae IgA antibodies are found in about 35 percent of CD patients but less than 1 percent in UC patients. Detection of both Saccharomyces IgG and IgA antibodies in the same serum specimen is highly specific for CD. Performed By: #### G FR #### [facility] [address] [place] [address] S. Cerevisiae IgG 13.2 Normal [facility] Comment on above: Result Comment: Refe rence range: 0.0 to 24.9 Unit: Units Performed By: #### G FR #### [place] [address] Total 25-OH Vitamin Don 09- Total 25-OH Vitamin D 40.0 ng/mL Normal 30.0-100.0 [facility] Comment on above: Performed By: #### G FR #### [place] [address] Comprehensive Metabolic Pane jose juan 02-11-2020 Albumin [Mass/Vol] 3.4 g/dL Low 3.9-4.9 [facility] Comment on above: Performed By: #### G FR #### [facility] [address] [place] [address] ALP [Catalytic activity/Vol] 77 U/L Normal 34-123 [facility] Comment on above: Performed By: #### G FR #### [facility] [address] [place] [address] ALT [Catalytic activity/Vol] 9 U/L Normal 7-38 [facility] Comment on above: Performed By: #### G FR #### [facility] [address] [place] [address] Anion gap [Moles/Vol] 7 mmol/L Low 9-18 [facility] Comment on above: Performed By: #### G FR #### [facility] [address] [place] [address] AST [Catalytic activity/Vol] 8 U/L Low 13-35 [facility] Comment on above: Performed By: #### G FR #### [facility] [address] [place], [place] [address] Bilirubin [Mass/Vol] mg/dL Normal 0.2-1.3 [facility] Comment on above: Performed By: #### G FR #### [facility] [address] [place], [place] [address] Calcium [Mass/Vol] 9.3 mg/dL Normal 8.5-10.2 [facility] Comment on above: Performed By: #### G FR #### [facility] [address] [place], [place] [address] Chloride [Moles/Vol] 105 mmol/L Normal 97-105 [facility] Comment on above: Performed By: #### G FR #### [facility] [address] [place], [place] [address] CO2 Blood 28 mmol/L Normal 22-30 [facility] Comment on above: Performed By: #### G FR #### [facility] [address] [place], [place] [address] Creatinine [Mass/Vol] 0.52 mg/dL Low 0.58-0.96 [facility] Comment on above: Performed By: #### G FR #### [facility] [address] [place], [place] [address] Glucose [Mass/Vol] 168 mg/dL High 74-99 [facility] Comment on above: Result Comment: The [place] Diabetes Association (ADA) provides guidance for cutoff values for fasting glucose and random glucose. The ADA defines fasting as no caloric intake for at least 8 hours.Fasting plasma glucose results between 100 to 125 mg/dL indicate increased risk for diabetes (prediabetes). Fasting plasma glucose results greater than or equal to 126 mg/dL meet the criteria for diagnosis of diabetes. In the absence of unequivocal hyperglycemia, results should be confirmed by repeat testing. In a patient with classic symptoms of hyperglycemia or hyperglycemic crisis, random plasma glucose results greater than or equal to 200 mg/dL meet the criteria for diagnosis of diabetes. Reference: Standards of Medical Care in Diabetes 2016; [place] [employer] Association. Diabetes Care. 2016;39(Suppl 1). Performed By: #### G FR #### [facility] [address] [place], [place] [address] Potassium [Moles/Vol] 4.1 mmol/L Normal 3.7-5.1 [facility] Comment on above: Performed By: #### G FR #### [facility] [address] [place] [address] Protein [Mass/Vol] 6.1 g/dL Low 6.3-8.0 [facility] Comment on above: Performed By: #### G FR #### [facility] [address] [place] [address] Sodium [Moles/Vol] 140 mmol/L Normal 136-144 [facility] Comment on above: Performed By: #### G FR #### [place] [address] Urea nitrogen [Mass/Vol] 9 mg/dL Normal 7-21 [facility] Comment on above: Performed By: #### G FR #### [place] [address] Hemogram/Diffon 02-11-2020 Abs Immature Grans 0.85 thou/cmm High 0.00-0.05 [facility] Comment on above: Performed By: #### G FR #### [place] [address] Abs Neut (ANC) 16.70 thou/cmm High 1.56-6.13 [facility] Comment on above: Performed By: #### G FR #### [place] [address] Abs. Baso 0.06 thou/cmm Normal 0.01-0.08 [facility] Comment on above: Performed By: #### G FR #### [facility] [address] [place] [address] Abs. [place] 0.39 thou/cmm Normal 0.27-0.70 [facility] Comment on above: Performed By: #### G FR #### [place] [address] Basophils/100 WBC (Bld) 0.3 % Normal [facility] Comment on above: Performed By: #### G FR #### [address] [place], [place] [address] Eosinophils (Bld) [#/Vol] 0.00 thou/cmm Normal 0.00-0.31 [facility] Comment on above: Performed By: #### G FR #### [facility] [address] [place], [place] [address] Eosinophils/100 WBC (Bld) 0.0 % Normal [facility] Comment on above: Performed By: #### G FR #### [facility] [address] [place], [place] [address] Immature Grans 4.40 % Normal [facility] Comment on above: Performed By: #### G FR #### [facility] [address] [place], [place] [address] Lymphocytes (Bld) [#/Vol] 1.33 thou/cmm Normal 1.18-3.74 [facility] Comment on above: Performed By: #### G FR #### [facility] [address] [place], [place] [address] Lymphocytes/100 WBC (Bld) 6.9 % Normal [facility] Comment on above: Performed By: #### G FR #### [facility] [address] [place], [place] [address] Monocytes/100 WBC (Bld) 2.0 % Normal [facility] Comment on above: Performed By: #### G FR #### [facility] [address] [place], [place] [address] Seg Neutrophil 86.4 % Normal [facility] Comment on above: Performed By: #### G FR #### [facility] [address] [place], [place] [address] Erythrocyte distribution width (RBC) [Ratio] 12.7 % Normal 11.7-14.4 [facility] Comment on above: Performed By: #### G FR #### [facility] [address] [place], [place] [address] Hematocrit (Bld) [Volume fraction] 28.9 % Low 34.1-44.9 [facility] Comment on above: Performed By: #### G FR #### [facility] [address] [place] [address] Hemoglobin (Bld) [Mass/Vol] 9.6 g/dL Low 11.2-15.7 [facility] Comment on above: Performed By: #### G FR #### [facility] [address] [place] [address] MCH (RBC) [Entitic mass] 30.5 pg Normal 25.6-32.2 [facility] Comment on above: Performed By: #### G FR #### [facility] [address] [place] [address] MCHC (RBC) [Mass/Vol] 33.2 % Normal 31.6-34.8 [facility] Comment on above: Performed By: #### G FR #### [facility] [address] [place] [address] MCV (RBC) [Entitic vol] 91.7 fL Normal 79.4-94.8 [facility] Comment on above: Performed By: #### G FR #### [facility] [address] [place] [address] Platelet mean volume (Bld) [Entitic vol] 9.6 fL Normal 9.4-12.3 [facility] Comment on above: Performed By: #### G FR #### [place] [address] Platelets (Bld) [#/Vol] 537 thou/cmm High 182-369 [facility] Comment on above: Performed By: #### G FR #### [facility] [address] [place] [address] RBC (Bld) [#/Vol] 3.15 mil/cmm Low 3.93-5.22 [facility] Comment on above: Performed By: #### G FR #### [facility] [address] [place] [address] RDW SD 41.6 fl Normal 36.4-46.3 [facility] Comment on above: Performed By: #### G FR #### [facility] [address] [place] [address] WBC (Bld) [#/Vol] 19.33 thou/cmm High 3.98-10.04 [facility] Comment on above: Performed By: #### G FR #### [facility] [address] [place], [place] [address] MDRD GFRon 02-11-2020 GFR/1.73 sq M predicted among non-blacks MDRD (S/P/Bld) [Vol rate/Area] mL/min/{1.73_m2} Normal >60mL/min/1.7 3m2 [facility] Comment on above: Result Comment: If t he patient is , multiply the result by 1.210. Performed By: #### L CBC #### [address] [address] Vitamin B12on 02-11-2020 Cobalamin (Vitamin B12) [Mass/Vol] 1303 pg/mL High 232-1245 [facility] Comment on above: Result Comment: Alea ents taking a biotin dose of up to 5 mg/day should refrain from taking biotin for 4 hours prior to sample collection. Patients taking a biotin dose of 5 to 10 mg/day should refrain from taking biotin for 8 hours prior to sample collection. Patients taking a biotin dose > 10 mg/day should consult with their physician or the laboratory prior to having a sample taken. Clinicians should consider biotin interference as a source of error, when clinically suspicious of the laboratory result. Performed By: #### G FR #### [address] [address] ABDIRIZAK by IFA Scrn w [employer] ABDIRIZAK by IFA Scrn w [employer]flx SEE BELOW Normal [facility] Comment on above: Result Comment: ABDIRIZAK Negative NEGAT Normal range : negative at <1:80 serum dilution. Approximately 6% of patients with connective tissue diseases with low positive EIA values are negative by IFA. Recommend follow-up with specific antinuclear antibodies if clinically indicated. Test performed using Indirect Fluorescence Immunoassay technology (IFA) using HEp-2 cells. ABDIRIZAK Titer Negative NEGAT Normal range : negative at <1:80 serum dilution. ABDIRIZAK Pattern SEE BELOW Not applicable for negative result. Performing Laboratory: [address] [address] Performed By: #### G FR #### [address] [place] [address] Basic Metabolic Panelon 09-0 6-2020 Anion gap [Moles/Vol] 9 mmol/L Normal 9-18 [facility] Comment on above: Performed By: #### P 14 #### [facility] [address] [place], [place] [address] Calcium [Mass/Vol] 9.0 mg/dL Normal 8.5-10.2 [facility] Comment on above: Performed By: #### P 14 #### [facility] [address] [place], [place] [address] Chloride [Moles/Vol] 107 mmol/L High 97-105 [facility] Comment on above: Performed By: #### P 14 #### [facility] [address] [place] [address] CO2 Blood 25 mmol/L Normal 22-30 [facility] Comment on above: Performed By: #### P 14 #### [facility] [address] [place] [address] Creatinine [Mass/Vol] 0.51 mg/dL Low 0.58-0.96 [facility] Comment on above: Performed By: #### P 14 #### [facility] [address] [place] [address] Glucose [Mass/Vol] 198 mg/dL High 74-99 [facility] Comment on above: Result Comment: The [place] Diabetes Association (ADA) provides guidance for cutoff values for fasting glucose and random glucose. The ADA defines fasting as no caloric intake for at least 8 hours.Fasting plasma glucose results between 100 to 125 mg/dL indicate increased risk for diabetes (prediabetes). Fasting plasma glucose results greater than or equal to 126 mg/dL meet the criteria for diagnosis of diabetes. In the absence of unequivocal hyperglycemia, results should be confirmed by repeat testing. In a patient with classic symptoms of hyperglycemia or hyperglycemic crisis, random plasma glucose results greater than or equal to 200 mg/dL meet the criteria for diagnosis of diabetes. Reference: Standards of Medical Care in Diabetes 2016; [place] [employer]. Diabetes Care. 2016;39(Suppl 1). Performed By: #### P 14 #### [facility] [address] [place] [address] Potassium [Moles/Vol] 4.2 mmol/L Normal 3.7-5.1 [facility] Comment on above: Performed By: #### P 14 #### [facility] [address] [place] [address] Sodium [Moles/Vol] 141 mmol/L Normal 136-144 [facility] Comment on above: Performed By: #### P 14 #### [facility] [address] [place] [address] Urea nitrogen [Mass/Vol] 3 mg/dL Low 7-21 [facility] Comment on above: Performed By: #### P 14 #### [facility] [address] [place] [address] Hep. B Surface Agon 02-10-20 20 Hep.B Surface Ag Negative Normal Negative [facility] Comment on above: Performed By: #### P 14 #### [place] [address] Hepatitis C Antibodyon 02-09 Hepatitis C Ab Negative Normal Negative [facility] Comment on above: Performed By: #### P 14 #### [facility] [address] [place] [address] Rheumatoid Factoron 02-10-20 20 Rheumatoid Factor 11 IU/mL Normal <16 [facility] Comment on above: Result Comment: Perf orming Laboratory: [facility] [address] [place] [address] Performed By: #### G FR #### [place] [address] CRPon 02-09-2020 CRP [Mass/Vol] 9.6 mg/dL High 0.0-0.8 [facility] Comment on above: Performed By: #### P 14 #### [facility] [address] [place] [address] Comprehensive Metabolic Pane jose juan 02-09-2020 Albumin [Mass/Vol] 3.1 g/dL Low 3.9-4.9 [facility] Comment on above: Performed By: #### P 14 #### [place] [address] ALP [Catalytic activity/Vol] 63 U/L Normal 34-123 [facility] Comment on above: Performed By: #### P 14 #### [facility] [address] [place], [place] [address] ALT [Catalytic activity/Vol] 9 U/L Normal 7-38 [facility] Comment on above: Performed By: #### P 14 #### [facility] [address] [place], [place] [address] Anion gap [Moles/Vol] 8 mmol/L Low 9-18 [facility] Comment on above: Performed By: #### P 14 #### [facility] [address] [place], [place] [address] AST [Catalytic activity/Vol] 9 U/L Low 13-35 [facility] Comment on above: Performed By: #### P 14 #### [facility] [address] [place], [place] [address] Bilirubin [Mass/Vol] 0.2 mg/dL Normal 0.2-1.3 [facility] Comment on above: Performed By: #### P 14 #### [facility] [address] [place], [place] [address] Calcium [Mass/Vol] 8.2 mg/dL Low 8.5-10.2 [facility] Comment on above: Performed By: #### P 14 #### [facility] [address] [place], [place] [address] Chloride [Moles/Vol] 103 mmol/L Normal 97-105 [facility] Comment on above: Performed By: #### P 14 #### [facility] [address] [place], [place] [address] CO2 Blood 26 mmol/L Normal 22-30 [facility] Comment on above: Performed By: #### P 14 #### [facility] [address] [place], [place] [address] Creatinine [Mass/Vol] 0.58 mg/dL Normal 0.58-0.96 [facility] Comment on above: Performed By: #### P 14 #### [facility] [address] [place], [place] [address] Glucose [Mass/Vol] 127 mg/dL High 74-99 [facility] Comment on above: Result Comment: The [place] [employer] (ADA) provides guidance for cutoff values for fasting glucose and random glucose. The ADA defines fasting as no caloric intake for at least 8 hours.Fasting plasma glucose results between 100 to 125 mg/dL indicate increased risk for diabetes (prediabetes). Fasting plasma glucose results greater than or equal to 126 mg/dL meet the criteria for diagnosis of diabetes. In the absence of unequivocal hyperglycemia, results should be confirmed by repeat testing. In a patient with classic symptoms of hyperglycemia or hyperglycemic crisis, random plasma glucose results greater than or equal to 200 mg/dL meet the criteria for diagnosis of diabetes. Reference: Standards of Medical Care in Diabetes 2016; [place] [employer]. Diabetes Care. 2016;39(Suppl 1). Performed By: #### P 14 #### [facility] [address] [place] [address] Potassium [Moles/Vol] 3.3 mmol/L Low 3.7-5.1 [facility] Comment on above: Performed By: #### P 14 #### [place] [address] Protein [Mass/Vol] 5.7 g/dL Low 6.3-8.0 [facility] Comment on above: Performed By: #### P 14 #### [facility] [address] [place], [place] [address] Sodium [Moles/Vol] 137 mmol/L Normal 136-144 [facility] Comment on above: Performed By: #### P 14 #### [facility] [address] [place], [place] [address] Urea nitrogen [Mass/Vol] mg/dL Low 7-21 [facility] Comment on above: Performed By: #### P 14 #### [facility] [address] [place], [place] [address] Hemogram/Diffon 02-09-2020 Abs Immature Grans 0.23 thou/cmm High 0.00-0.05 [facility] Comment on above: Performed By: #### P 14 #### [facility] [address] [place], [place] [address] Abs Neut (ANC) 9.75 thou/cmm High 1.56-6.13 [facility] Comment on above: Performed By: #### P 14 #### [facility] [address] [place] [address] Abs. Baso 0.04 thou/cmm Normal 0.01-0.08 [facility] Comment on above: Performed By: #### P 14 #### [facility] [address] [place] [address] Abs. [place] 1.03 thou/cmm High 0.27-0.70 [facility] Comment on above: Performed By: #### P 14 #### [facility] [address] [place] [address] Basophils/100 WBC (Bld) 0.3 % Normal [facility] Comment on above: Performed By: #### P 14 #### [facility] [address] [place] [address] Eosinophils (Bld) [#/Vol] 0.05 thou/cmm Normal 0.00-0.31 [facility] Comment on above: Performed By: #### P 14 #### [facility] [address] [place] [address] Eosinophils/100 WBC (Bld) 0.4 % Normal [facility] Comment on above: Performed By: #### P 14 #### [facility] [address] [place] [address] Erythrocyte distribution width (RBC) [Ratio] 12.3 % Normal 11.7-14.4 [facility] Comment on above: Performed By: #### P 14 #### [facility] [address] [place] [address] Hematocrit (Bld) [Volume fraction] 26.8 % Low 34.1-44.9 [facility] Comment on above: Performed By: #### P 14 #### [facility] [address] [place] [address] Hemoglobin (Bld) [Mass/Vol] 9.0 g/dL Low 11.2-15.7 [facility] Comment on above: Performed By: #### P 14 #### [facility] [address] [place] [address] Immature Grans 1.80 % Normal [facility] Comment on above: Performed By: #### P 14 #### [facility] [address] [place], [place] [address] Lymphocytes (Bld) [#/Vol] 1.88 thou/cmm Normal 1.18-3.74 [facility] Comment on above: Performed By: #### P 14 #### [facility] [address] [place], [place] [address] Lymphocytes/100 WBC (Bld) 14.5 % Normal [facility] Comment on above: Performed By: #### P 14 #### [facility] [address] [place], [place] [address] MCH (RBC) [Entitic mass] 29.6 pg Normal 25.6-32.2 [facility] Comment on above: Performed By: #### P 14 #### [facility] [address] [place], [place] [address] MCHC (RBC) [Mass/Vol] 33.6 % Normal 31.6-34.8 [facility] Comment on above: Performed By: #### P 14 #### [facility] [address] [place], [place] [address] MCV (RBC) [Entitic vol] 88.2 fL Normal 79.4-94.8 [facility] Comment on above: Performed By: #### P 14 #### [facility] [address] [place], [place] [address] Monocytes/100 WBC (Bld) 7.9 % Normal [facility] Comment on above: Performed By: #### P 14 #### [facility] [address] [place], [place] [address] Platelet mean volume (Bld) [Entitic vol] 9.3 fL Low 9.4-12.3 [facility] Comment on above: Performed By: #### P 14 #### [facility] [address] [place], [place] [address] Platelets (Bld) [#/Vol] 429 thou/cmm High 182-369 [facility] Comment on above: Performed By: #### P 14 #### [facility] [address] [place], [place] [address] RBC (Bld) [#/Vol] 3.04 mil/cmm Low 3.93-5.22 [facility] Comment on above: Performed By: #### P 14 #### [facility] [address] [place] [address] RDW SD 39.7 fl Normal 36.4-46.3 [facility] Comment on above: Performed By: #### P 14 #### [facility] [address] [place] [address] Seg Neutrophil 75.1 % Normal [facility] Comment on above: Performed By: #### P 14 #### [facility] [address] [place] [address] WBC (Bld) [#/Vol] 12.98 thou/cmm High 3.98-10.04 [facility] Comment on above: Performed By: #### P 14 #### [facility] [address] [place] [address] Sed Rateon 02-09-2020 Sed Rate 60 mm/hr High 0-20 [facility] Comment on above: Performed By: #### P 14 #### [facility] [address] [place] [address] Basic Metabolic Panelon Anion gap [Moles/Vol] 10 mmol/L Normal 9-18 [facility] Comment on above: Performed By: #### P 14 #### [facility] [address] [place] [address] Calcium [Mass/Vol] 8.4 mg/dL Low 8.5-10.2 [facility] Comment on above: Performed By: #### P 14 #### [facility] [address] [place] [address] Chloride [Moles/Vol] 102 mmol/L Normal 97-105 [facility] Comment on above: Performed By: #### P 14 #### [facility] [address] [place] [address] CO2 Blood 28 mmol/L Normal 22-30 [facility] Comment on above: Performed By: #### P 14 #### [facility] [address] [place] [address] Creatinine [Mass/Vol] 0.61 mg/dL Normal 0.58-0.96 [facility] Comment on above: Performed By: #### P 14 #### [facility] [address] [place] [address] Glucose [Mass/Vol] 109 mg/dL High 74-99 [facility] Comment on above: Result Comment: The [place] Diabetes Association (ADA) provides guidance for cutoff values for fasting glucose and random glucose. The ADA defines fasting as no caloric intake for at least 8 hours.Fasting plasma glucose results between 100 to 125 mg/dL indicate increased risk for diabetes (prediabetes). Fasting plasma glucose results greater than or equal to 126 mg/dL meet the criteria for diagnosis of diabetes. In the absence of unequivocal hyperglycemia, results should be confirmed by repeat testing. In a patient with classic symptoms of hyperglycemia or hyperglycemic crisis, random plasma glucose results greater than or equal to 200 mg/dL meet the criteria for diagnosis of diabetes. Reference: Standards of Medical Care in Diabetes 2016; [place] [employer]. Diabetes Care. 2016;39(Suppl 1). Performed By: #### P 14 #### [facility] [address] [place] [address] Potassium [Moles/Vol] 2.8 mmol/L Low 3.7-5.1 [facility] Comment on above: Performed By: #### P 14 #### [facility] [address] [place] [address] Sodium [Moles/Vol] 140 mmol/L Normal 136-144 [facility] Comment on above: Performed By: #### P 14 #### [facility] [address] [place] [address] Urea nitrogen [Mass/Vol] 2 mg/dL Low 7-21 [facility] Comment on above: Performed By: #### P 14 #### [facility] [address] [place] [id number] Hemogram/Diffon 02-08-2020 Abs Immature Grans 0.30 thou/cmm High 0.00-0.05 [facility] Comment on above: Performed By: #### L TSHR #### [place] [address] Abs Neut (ANC) 11.98 thou/cmm High 1.56-6.13 [facility] Comment on above: Performed By: #### L TSHR #### [facility] [address] [place] [address] Abs. Baso 0.04 thou/cmm Normal 0.01-0.08 [facility] Comment on above: Performed By: #### L TSHR #### [place] [address] Abs. [place] 1.02 thou/cmm High 0.27-0.70 [facility] Comment on above: Performed By: #### L TSHR #### [place] [address] Basophils/100 WBC (Bld) 0.3 % Normal [facility] Comment on above: Performed By: #### L TSHR #### [place] [address] Eosinophils (Bld) [#/Vol] 0.03 thou/cmm Normal 0.00-0.31 [facility] Comment on above: Performed By: #### L TSHR #### [address] [address] Eosinophils/100 WBC (Bld) 0.2 % Normal [facility] Comment on above: Performed By: #### L TSHR #### [place] [address] Immature Grans 2.00 % Normal [facility] Comment on above: Performed By: #### L TSHR #### [address] [address] Lymphocytes (Bld) [#/Vol] 1.45 thou/cmm Normal 1.18-3.74 [facility] Comment on above: Performed By: #### L TSHR #### [address] [address] Lymphocytes/100 WBC (Bld) 9.8 % Normal [facility] Comment on above: Performed By: #### L TSHR #### [facility] [address] [place] [address] Monocytes/100 WBC (Bld) 6.9 % Normal [facility] Comment on above: Performed By: #### L TSHR #### [facility] [address] [place] [address] Seg Neutrophil 80.8 % Normal [facility] Comment on above: Performed By: #### L TSHR #### [facility] [address] [place] [address] Erythrocyte distribution width (RBC) [Ratio] 12.1 % Normal 11.7-14.4 [facility] Comment on above: Performed By: #### L TSHR #### [facility] [address] [place] [address] Hematocrit (Bld) [Volume fraction] 33.0 % Low 34.1-44.9 [facility] Comment on above: Performed By: #### L TSHR #### [place] [address] Hemoglobin (Bld) [Mass/Vol] 11.0 g/dL Low 11.2-15.7 [facility] Comment on above: Performed By: #### L TSHR #### [place] [address] MCH (RBC) [Entitic mass] 29.6 pg Normal 25.6-32.2 [facility] Comment on above: Performed By: #### L TSHR #### [place] [address] MCHC (RBC) [Mass/Vol] 33.3 % Normal 31.6-34.8 [facility] Comment on above: Performed By: #### L TSHR #### [place] [address] MCV (RBC) [Entitic vol] 88.7 fL Normal 79.4-94.8 [facility] Comment on above: Performed By: #### L TSHR #### [place] [address] Platelet mean volume (Bld) [Entitic vol] 9.4 fL Normal 9.4-12.3 [facility] Comment on above: Performed By: #### L TSHR #### [facility] [address] [place] [address] Platelets (Bld) [#/Vol] 512 thou/cmm High 182-369 [facility] Comment on above: Performed By: #### L TSHR #### [facility] [address] [place] [address] RBC (Bld) [#/Vol] 3.72 mil/cmm Low 3.93-5.22 [facility] Comment on above: Performed By: #### L TSHR #### [place] [address] RDW SD 39.2 fl Normal 36.4-46.3 [facility] Comment on above: Performed By: #### L TSHR #### [place] [address] WBC (Bld) [#/Vol] 14.83 thou/cmm High 3.98-10.04 [facility] Comment on above: Performed By: #### L TSHR #### [place] [address] Hepatitis A Ab, IgMon 2019 HAV Ab IgM Negative Normal Negative [facility] Comment on above: Result Comment: Alea ents taking a biotin dose of up to 5 mg/day should refrain from taking biotin for 4 hours prior to sample collection. Patients taking a biotin dose of 5 to 10 mg/day should refrain from taking biotin for 8 hours prior to sample collection. Patients taking a biotin dose > 10 mg/day should consult with their physician or the laboratory prior to having a sample taken. Clinicians should consider biotin interference as a source of error, when clinically suspicious of the laboratory result. Performed By: #### P 14 #### [place] [address] Surgical Tissue Examon 02-07 Surgical Tissue Exam Test performed at [place] [address] NAME: CALLIE KENNEDY REQUESTING: MINA KAN MD COPY TO: AUSTEN TINOCO FINAL DIAGNOSIS: A) ASCENDING COLON, BIOPSY - NO PATHOLOGIC ABNORMALITIES. B) TRANSVERSE COLON, BIOPSIES - NO PATHOLOGIC ABNORMALITIES. C) DESCENDING COLON, BIOPSY - MINIMAL ACTIVE COLITIS. SEE COMMENT. D) RECTUM, BIOPSY - NO PATHOLOGIC ABNORMALITIES. COMMENT: The descending colon biopsy consists of fragments of benign colonic mucosa with a very mild increase in chronic inflammatory cells within the lamina propria and a few scattered glands with infiltrating neutrophils. There is no evidence of granulomas identified. There is no dysplasia seen. The findings are very mild and nonspecific. Clinic and endoscopic correlation are required. OPERATIVE PROCEDURE: Colon CLINICAL INFORMATION: Colitis, Infectious verus inflammatory colitis GROSS DESCRIPTION: A) Ascending colon biopsy Received in formalin labeled ascending colon biopsy are two spaulding, soft tissue fragments aggregating to 0.7 x 0.3 x 0.2 cm. Totally submitted in 1 cassette. B) Transverse colon biopsy Received in formalin labeled transverse colon biopsy are two spaulding, soft tissue fragments aggregating to 0.7 x 0.2 x 0.2 cm. Totally submitted in 1 cassette. C) Descending colon biopsy Received in formalin labeled descending colon biopsy are three spaulding, soft tissue fragments aggregating to 0.7 x 0.2 x 0.2 cm. Totally submitted in 1 cassette. D) Rectum biopsy Received in formalin labeled rectum biopsy are two spaulding, soft tissue fragments aggregating to 0.7 x 0.2 x 0.2 cm. Totally submitted in 1 cassette. BLAKE/gladys MISHRA M.D., PATHOLOGIST (Electronic signature on file) Signed out: 02/12/2020 17:20 PRINTED: 02/12/2020 Page 1 of 1 Normal [facility] Comment on above: Performed By: #### G FR #### [place] [address] Activated PTTon 02-07-2020 aPTT Coag (Bld) [Time] 32.2 s Normal 23.0-32.4 [facility] Comment on above: Result Comment: Unfr actionated Heparin Therapeutic Ranges: Standard Heparin Nomogram: 53 to 78 seconds (anti-Xa level of 0.3 to 0.7 U/mL) Low Dose/ACS Nomogram: 49 to 67 seconds (anti-Xa level of 0.2 to 0.5 U/mL) Stroke Treatment Nomogram: 49 to 67 seconds (anti-Xa level of 0.2 to 0.5 U/mL) Note: The APTT therapeutic range has been determined for the current lot of laboratory APTT reagent in use throughout the [facility]. Performed By: #### L CBC #### [facility] [address] [place], [place] [address] Basic Metabolic Panelon 09-0 Anion gap [Moles/Vol] 12 mmol/L Normal 9-18 [facility] Comment on above: Performed By: #### L TSHR #### [facility] [address] [place] [address] Calcium [Mass/Vol] 8.5 mg/dL Normal 8.5-10.2 [facility] Comment on above: Performed By: #### L TSHR #### [facility] [address] [place] [address] Chloride [Moles/Vol] 102 mmol/L Normal 97-105 [facility] Comment on above: Performed By: #### L TSHR #### [facility] [address] [place] [address] CO2 Blood 24 mmol/L Normal 22-30 [facility] Comment on above: Performed By: #### L TSHR #### [facility] [address] [place] [address] Creatinine [Mass/Vol] 0.58 mg/dL Normal 0.58-0.96 [facility] Comment on above: Performed By: #### L TSHR #### [facility] [address] [place] [address] Glucose [Mass/Vol] 83 mg/dL Normal 74-99 [facility] Comment on above: Result Comment: The [place] Diabetes Association (ADA) provides guidance for cutoff values for fasting glucose and random glucose. The ADA defines fasting as no caloric intake for at least 8 hours.Fasting plasma glucose results between 100 to 125 mg/dL indicate increased risk for diabetes (prediabetes). Fasting plasma glucose results greater than or equal to 126 mg/dL meet the criteria for diagnosis of diabetes. In the absence of unequivocal hyperglycemia, results should be confirmed by repeat testing. In a patient with classic symptoms of hyperglycemia or hyperglycemic crisis, random plasma glucose results greater than or equal to 200 mg/dL meet the criteria for diagnosis of diabetes. Reference: Standards of Medical Care in Diabetes 2016; [place] [employer]. Diabetes Care. 2016;39(Suppl 1). Performed By: #### L TSHR #### [facility] [address] [place] [address] Potassium [Moles/Vol] 3.2 mmol/L Low 3.7-5.1 [facility] Comment on above: Performed By: #### L TSHR #### [facility] [address] [place] [address] Sodium [Moles/Vol] 138 mmol/L Normal 136-144 [facility] Comment on above: Performed By: #### L TSHR #### [place] [address] Urea nitrogen [Mass/Vol] 4 mg/dL Low 7-21 [facility] Comment on above: Performed By: #### L TSHR #### [place] [address] C. diff by PCRon 02-07-2020 C. difficile by PCR Negative Normal Negative [facility] Comment on above: Performed By: #### L CBC #### [place] [address] CRPon 02-07-2020 CRP [Mass/Vol] 10.0 mg/dL High 0.0-0.8 [facility] Comment on above: Performed By: #### L TSHR #### [place] [address] CRP [Mass/Vol] 9.8 mg/dL High 0.0-0.8 [facility] Comment on above: Performed By: #### L TSHR #### [place] [address] CT ABD/PEL W IVCONon 020 CT ABD/PEL W IVCON Final Report DATE OF EXAM: Feb 06 2020 11:25PM [facility] 0530 - CT ABD/PEL W IVCON / PROCEDURE REASON: Infection, abdomen-pelvis Physician Interpretation EXAMINATION: CT ABDOMEN AND PELVIS WITH IV CONTRAST CLINICAL HISTORY: Nausea, vomiting, diarrhea for 3 weeks TECHNIQUE: CT of the abdomen and pelvis was performed using standard technique, scanning from just above the dome of the diaphragm to the symphysis pubis. MQ: CTAP_3 Contrast: IV: 100 ml of Omnipaque 300 : ml of CT Radiation dose: Integrated Dose-length product (DLP) for this visit = [address] Dose Reduction Employed: Automated exposure control(AEC) and iterative recon COMPARISON: 02/02/2016. RESULT: Liver: No mass. Biliary: No bile duct dilation. Spleen: No mass. No splenomegaly. Pancreas: No mass or duct dilation. Adrenals: No mass. Kidneys: No hydronephrosis. GI tract: Mild wall thickening and hyperemia seen in the distal transverse colon and in portions of the descending colon. Liquid stool seen throughout the colon. Lymph nodes: No abdominal or pelvic lymphadenopathy. Mesentery/Peritoneum: No ascites or mass. Retroperitoneum: No mass. Vasculature: The celiac axis and SMA are patent. The portal vein and branches, splenic vein, SMV, and hepatic veins are patent. Pelvis: No mass, ascites or fluid collection. Bones/Soft Tissues: No significant finding. Lower thorax: Unremarkable. IMPRESSION: Mild wall thickening and hyperemia seen in the distal transverse colon and descending colon, most consistent with infectious/inflammatory colitis. Liquid stool throughout the colon is consistent with diarrheal illness. Company Secretary: JANETH Transcribe Date/Time: Feb 06 2020 11:44P Dictated by : ANNIKA PARMAR MD This examination was interpreted and the report reviewed and electronically signed by: ANNIKA PARMAR MD on Feb 06 2020 11:53PM EST Normal [facility] Cult Enteric Pathogenson Cult Enteric Pathogens Test performed at [facility] Unable to rule-out E. coli 0157 due to supply shortages. If Shiga toxin-producing E. coli are in the differential, please call lab within 48 hr and order "Shiga Toxin" test. No Salmonella, Shigella, Campylobacter cultured. Normal [facility] Comment on above: Performed By: #### P 14 #### [facility] [address] [place] [address] Hemogramon 02-07-2020 Erythrocyte distribution width (RBC) [Ratio] 12.0 % Normal 11.7-14.4 [facility] Comment on above: Performed By: #### L TSHR #### [facility] [address] [place], [place] [address] Hematocrit (Bld) [Volume fraction] 28.9 % Low 34.1-44.9 [facility] Comment on above: Performed By: #### L TSHR #### [facility] [address] [place], [place] [address] Hemoglobin (Bld) [Mass/Vol] 9.7 g/dL Low 11.2-15.7 [facility] Comment on above: Performed By: #### L TSHR #### [facility] [address] [place], [place] [address] MCH (RBC) [Entitic mass] 29.6 pg Normal 25.6-32.2 [facility] Comment on above: Performed By: #### L TSHR #### [place] [address] MCHC (RBC) [Mass/Vol] 33.6 % Normal 31.6-34.8 [facility] Comment on above: Performed By: #### L TSHR #### [address] [address] MCV (RBC) [Entitic vol] 88.1 fL Normal 79.4-94.8 [facility] Comment on above: Performed By: #### L TSHR #### [address] [address] Platelet mean volume (Bld) [Entitic vol] 9.2 fL Low 9.4-12.3 [facility] Comment on above: Performed By: #### L TSHR #### [facility] [address] [place], [place] [address] Platelets (Bld) [#/Vol] 452 thou/cmm High 182-369 [facility] Comment on above: Performed By: #### L TSHR #### [facility] [address] [place], [place] [address] RBC (Bld) [#/Vol] 3.28 mil/cmm Low 3.93-5.22 [facility] Comment on above: Performed By: #### L TSHR #### [facility] [address] [place] [address] RDW SD 38.6 fl Normal 36.4-46.3 [facility] Comment on above: Performed By: #### L TSHR #### [facility] [address] [place] [address] WBC (Bld) [#/Vol] 11.39 thou/cmm High 3.98-10.04 [facility] Comment on above: Performed By: #### L TSHR #### [facility] [address] [place] [address] Hemogram/Diffon 02-07-2020 Abs Immature Grans 0.28 thou/cmm High 0.00-0.05 [facility] Comment on above: Performed By: #### C BCD1 #### [place] [address] Abs Neut (ANC) 12.42 thou/cmm High 1.56-6.13 [facility] Comment on above: Performed By: #### C BCD1 #### [facility] [address] [place] [address] Abs. Baso 0.06 thou/cmm Normal 0.01-0.08 [facility] Comment on above: Performed By: #### C BCD1 #### [place] [address] Abs. [place] 1.24 thou/cmm High 0.27-0.70 [facility] Comment on above: Performed By: #### C BCD1 #### [facility] [address] [place] [address] Basophils/100 WBC (Bld) 0.4 % Normal [facility] Comment on above: Performed By: #### C BCD1 #### [place] [address] Eosinophils (Bld) [#/Vol] 0.02 thou/cmm Normal 0.00-0.31 [facility] Comment on above: Performed By: #### C BCD1 #### [place] [address] Eosinophils/100 WBC (Bld) 0.1 % Normal [facility] Comment on above: Performed By: #### C BCD1 #### [facility] [address] [place], [place] [address] Immature Grans 1.80 % Normal [facility] Comment on above: Performed By: #### C BCD1 #### [facility] [address] [place], [place] [address] Lymphocytes (Bld) [#/Vol] 1.72 thou/cmm Normal 1.18-3.74 [facility] [facility] Comment on above: Performed By: #### C BCD1 #### [facility] [address] [place], [place] [address] Lymphocytes/100 WBC (Bld) 10.9 % Normal [facility] Comment on above: Performed By: #### C BCD1 #### [facility] [address] [place], [place] [address] Monocytes/100 WBC (Bld) 7.9 % Normal [facility] Comment on above: Performed By: #### C BCD1 #### [facility] [address] [place], [place] [address] Seg Neutrophil 78.9 % Normal [facility] Comment on above: Performed By: #### C BCD1 #### [facility] [address] [place], [place] [address] Erythrocyte distribution width (RBC) [Ratio] 12.0 % Normal 11.7-14.4 [facility] Comment on above: Performed By: #### C BCD1 #### [facility] [address] [place], [place] [address] Hematocrit (Bld) [Volume fraction] 35.5 % Normal 34.1-44.9 [facility] Comment on above: Performed By: #### C BCD1 #### [facility] [address] [place], [place] [address] Hemoglobin (Bld) [Mass/Vol] 12.1 g/dL Normal 11.2-15.7 [facility] Comment on above: Performed By: #### C BCD1 #### [facility] [address] [place], [place] [address] MCH (RBC) [Entitic mass] 29.7 pg Normal 25.6-32.2 [facility] Comment on above: Performed By: #### C BCD1 #### [facility] [address] [place] [address] MCHC (RBC) [Mass/Vol] 34.1 % Normal 31.6-34.8 [facility] Comment on above: Performed By: #### C BCD1 #### [facility] [address] [place] [address] MCV (RBC) [Entitic vol] 87.0 fL Normal 79.4-94.8 [facility] Comment on above: Performed By: #### C BCD1 #### [facility] [address] [place] [address] Platelet mean volume (Bld) [Entitic vol] 9.1 fL Low 9.4-12.3 [facility] Comment on above: Performed By: #### C BCD1 #### [facility] [address] [place] [address] Platelets (Bld) [#/Vol] 560 thou/cmm High 182-369 [facility] Comment on above: Performed By: #### C BCD1 #### [facility] [address] [place] [address] RBC (Bld) [#/Vol] 4.08 mil/cmm Normal 3.93-5.22 [facility] Comment on above: Performed By: #### C BCD1 #### [facility] [address] [place] [address] RDW SD 38.5 fl Normal 36.4-46.3 [facility] Comment on above: Performed By: #### C BCD1 #### [facility] [address] [place] [address] WBC (Bld) [#/Vol] 15.74 thou/cmm High 3.98-10.04 [facility] Comment on above: Performed By: #### C BCD1 #### [facility] [address] [place] [address] Magnesium Bloodon 02-07-2020 Magnesium [Mass/Vol] 1.8 mg/dL Normal 1.7-2.3 [facility] Comment on above: Performed By: #### L TSHR #### [facility] [address] [place] [address] Ova and Parasite Screenon Ova and Parasite Screen Test performed at [facility] NEGATIVE for Giardia lamblia antigen. NEGATIVE for Cryptosporidium parvum antigen. If another parasite is suspected, call the Microbiology Laboratory ([phone]) to request additional parasitology testing. Normal [facility] Comment on above: Performed By: #### L TSHR #### [facility] [address] [place] [address] Protimeon 02-07-2020 INR Coag (PPP) [Relative time] 1.48 {INR} High 0.90-1.30 [facility] Comment on above: Result Comment: Natividad min K Antagonist (VKA) Therapeutic Range: INR 2 to 3 (Target INR of 2.5) Note: For patients treated with VKA drugs, such as warfarin, the [place] [employer] 2012 Guideline recommends a therapeutic INR range of 2 to 3 (target INR of 2.5). This recommendation includes high-risk patients with antiphospholipid syndrome with previous arterial or venous thromboembolism, current-generation mechanical or bioprosthetic aortic heart valve replacement. Note: Patients with mechanical aortic valve replacement and additional risk factors for thromboembolic events (atrial fibrillation, previous thromboembolism, LV dysfunction, hypercoagulable conditions) or an older generation mechanical AVR (i.e., ball in-Cage) or any mechanical MVR should have a INR therapeutic range of 2.5 to 3.5 target INR of 3). Michelle GH, et al. Chest 2012; 141:7S-47S Sylvie RA et al. JACC 2017; 70: 252-289 Performed By: #### L CBC #### [facility] [address] [place] [address] PT Coag (PPP) [Time] 15.1 s High 9.7-13.0 [facility] Comment on above: Performed By: #### L CBC #### [facility] [address] [place] [id number] Rapid, COVID 19on 02-07-2020 Rapid, COVID 19 Negative Normal Negative [facility] Comment on above: Result Comment: This test has been authorized by the FDA under an Emergency Use Authorization (EUA). Performed By: #### L CBC #### [facility] [address] [place] [address] Troponin T, High Sens.on Troponin T, High Sens. 7 ng/L Normal 0-11 [facility] Comment on above: Result Comment: Alea ents taking a biotin dose of up to 5 mg/day should refrain from taking biotin for 4 hours prior to sample collection. Patients taking a biotin dose of 5 to 10 mg/day should refrain from taking biotin for 8 hours prior to sample collection. Patients taking a biotin dose > 10 mg/day should consult with their physician or the laboratory prior to having a sample taken. Clinicians should consider biotin interference as a source of error, when clinically suspicious of the laboratory result. Performed By: #### L CBC #### [place] [address] Urinalysis Routineon 020 Bacteria LM.HPF (Urine sed) [#/Area] NONE Normal None [facility] Comment on above: Performed By: #### U RIN2 #### [place] [address] Ep Cells Urine 3.9 /hpf Normal 0.0-5.0 [facility] Comment on above: Performed By: #### U RIN2 #### [place] [address] Hyaline Cast 0.7 /lpf Normal 0.0-1.0 [facility] Comment on above: Performed By: #### U RIN2 #### [place] [address] RBC LM.HPF (Urine sed) [#/Area] 5.0 /[HPF] Normal 0.0-5.0 [facility] Comment on above: Performed By: #### U RIN2 #### [place] [address] WBC LM.HPF (Urine sed) [#/Area] 4.0 /[HPF] Normal 0.0-5.0 [facility] Comment on above: Performed By: #### U RIN2 #### [facility] [address] [place] [address] Appearance (U) CLEAR Normal [facility] Comment on above: Performed By: #### U RIN2 #### [facility] [address] [place] [address] Bilirubin (U) [Mass/Vol] see below Abnormal Negative [facility] Comment on above: Result Comment: Dete cted (Unable to confirm). Performed By: #### U RIN2 #### [facility] [address] [place] [address] Color (U) DK YELLOW Normal [facility] Comment on above: Performed By: #### U RIN2 #### [place] [address] Glucose Ql (U) Negative Normal Negative [facility] Comment on above: Performed By: #### U RIN2 #### [facility] [address] [place] [address] Hemoglobin,Urine Negative Normal Negative [facility] Comment on above: Performed By: #### U RIN2 #### [place] [address] Ketone Urine >=160 Abnormal Negative [facility] Comment on above: Performed By: #### U RIN2 #### [place] [address] Leukocytes Esterase SMALL Abnormal Negative [facility] Comment on above: Performed By: #### U RIN2 #### [place] [address] Nitrites Urine Negative Normal Negative [facility] Comment on above: Performed By: #### U RIN2 #### [place] [address] pH (U) 6.0 [pH] Normal 5.0-8.0 [facility] Comment on above: Performed By: #### U RIN2 #### [place] [address] Protein (U) [Mass/Vol] Negative Normal Negative [facility] Comment on above: Performed By: #### U RIN2 #### [facility] [address] [place] [address] Specific [place], Ur 1.021 Normal 1.005-1.030 [facility] Comment on above: Performed By: #### U RIN2 #### [facility] [address] [place] [address] Urobilinogen,Ur 0.2 EU/dL Normal 0.2-1.0 [facility] Comment on above: Performed By: #### U RIN2 #### [facility] [address] [place] [address] Comprehensive Metabolic Pane jose juan 02-06-2020 Albumin [Mass/Vol] 3.9 g/dL Normal 3.9-4.9 [facility] Comment on above: Performed By: #### L CBC #### [facility] [address] [place] [address] ALP [Catalytic activity/Vol] 98 U/L Normal 34-123 [facility] Comment on above: Performed By: #### L CBC #### [facility] [address] [place] [address] ALT [Catalytic activity/Vol] 13 U/L Normal 7-38 [facility] Comment on above: Performed By: #### L CBC #### [facility] [address] [place] [address] Anion gap [Moles/Vol] 17 mmol/L Normal 9-18 [facility] Comment on above: Performed By: #### L CBC #### [facility] [address] [place] [address] AST [Catalytic activity/Vol] 15 U/L Normal 13-35 [facility] Comment on above: Performed By: #### L CBC #### [facility] [address] [place] [address] Bilirubin [Mass/Vol] 0.2 mg/dL Normal 0.2-1.3 [facility] Comment on above: Performed By: #### L CBC #### [facility] [address] [place], [place] [address] Calcium [Mass/Vol] 9.4 mg/dL Normal 8.5-10.2 [facility] Comment on above: Performed By: #### L CBC #### [facility] [address] [place], [place] [address] Chloride [Moles/Vol] 96 mmol/L Low 97-105 [facility] Comment on above: Performed By: #### L CBC #### [facility] [address] [place], [place] [address] CO2 Blood 25 mmol/L Normal 22-30 [facility] Comment on above: Performed By: #### L CBC #### [facility] [address] [place], [place] [address] Creatinine [Mass/Vol] 0.69 mg/dL Normal 0.58-0.96 [facility] Comment on above: Performed By: #### L CBC #### [facility] [address] [place], [place] [address] Glucose [Mass/Vol] 92 mg/dL Normal 74-99 [facility] Comment on above: Result Comment: The [place] [employer] Association (ADA) provides guidance for cutoff values for fasting glucose and random glucose. The ADA defines fasting as no caloric intake for at least 8 hours.Fasting plasma glucose results between 100 to 125 mg/dL indicate increased risk for diabetes (prediabetes). Fasting plasma glucose results greater than or equal to 126 mg/dL meet the criteria for diagnosis of diabetes. In the absence of unequivocal hyperglycemia, results should be confirmed by repeat testing. In a patient with classic symptoms of hyperglycemia or hyperglycemic crisis, random plasma glucose results greater than or equal to 200 mg/dL meet the criteria for diagnosis of diabetes. Reference: Standards of Medical Care in Diabetes 2016; [place] [employer]. Diabetes Care. 2016;39(Suppl 1). Performed By: #### L CBC #### [facility] [address] [place], [place] [address] Potassium [Moles/Vol] 3.7 mmol/L Normal 3.7-5.1 [facility] Comment on above: Performed By: #### L CBC #### [facility] [address] [place], [place] [address] Protein [Mass/Vol] 7.1 g/dL Normal 6.3-8.0 [facility] Comment on above: Performed By: #### L CBC #### [facility] [address] [place], [place] [address] Sodium [Moles/Vol] 138 mmol/L Normal 136-144 [facility] Comment on above: Performed By: #### L CBC #### [facility] [address] [place] [address] Urea nitrogen [Mass/Vol] 6 mg/dL Low 7-21 [facility] Comment on above: Performed By: #### L CBC #### [facility] [address] [place] [address] Cult Bloodon 02-06-2020 Cult Blood Test performed at [facility] No growth Normal [facility] Comment on above: Performed By: #### L TSHR #### [facility] [address] [place] [address] Cult Urineon 02-06-2020 Cult Urine Test performed at [facility] No growth <1,000 CFU/ml. Normal [facility] Comment on above: Performed By: #### L TSHR #### [facility] [address] [place] [address] Lactic Acidon 02-06-2020 Lactate [Moles/Vol] 1.1 mmol/L Normal 0.5-2.2 [facility] Comment on above: Performed By: #### E DLAG #### [facility] [address] [place], [place] [address] Lipase Bloodon 02-06-2020 Lipase Blood 29 U/L Normal 16-61 [facility] Comment on above: Performed By: #### L CBC #### [facility] [address] [place] [address] Troponin T, High Sens.on Troponin T, High Sens. 6 ng/L Normal 0-11 [facility] Comment on above: Result Comment: Alea ents taking a biotin dose of up to 5 mg/day should refrain from taking biotin for 4 hours prior to sample collection. Patients taking a biotin dose of 5 to 10 mg/day should refrain from taking biotin for 8 hours prior to sample collection. Patients taking a biotin dose > 10 mg/day should consult with their physician or the laboratory prior to having a sample taken. Clinicians should consider biotin interference as a source of error, when clinically suspicious of the laboratory result. Performed By: #### L CBC #### [facility] [address] [place], [place] [address] XR CHEST 2V FRONTAL/LATon XR CHEST 2V FRONTAL/LAT Final Report DATE OF EXAM: Feb 06 2020 8:11PM [id number] - XR CHEST 2V FRONTAL/LAT / PROCEDURE REASON: Chest pain Physician Interpretation EXAMINATION: CHEST RADIOGRAPH (2 VIEW FRONTAL & LATERAL) CLINICAL HISTORY: Chest pain, Shortness of breath MQ: [id number] EXAM DATE/TIME: 02/06/2020 8:11 PM COMPARISON: No relevant prior studies available. RESULT: Lines, tubes, and devices: None. Lungs and pleura: No consolidation. No lung mass. No pleural effusion. No pneumothorax. Cardiomediastinal silhouette: Normal cardiomediastinal silhouette. Bones and soft tissues: Unremarkable. IMPRESSION: No acute radiographic abnormality. Company Secretary: PSCB Transcribe Date/Time: Feb 06 2020 8:12P Dictated by : DEEPTHI GUARDADO MD This examination was interpreted and the report reviewed and electronically signed by: DEEPTHI GUARDADO MD on Feb 06 2020 8:12PM EST Normal [facility] SCREENINGon 05-10-2019 [facility] SCREENING * * *Final Report* * * DATE OF EXAM: May 10 2019 11:24AM [id number] - [facility] SCREENING / PROCEDURE REASON: Encounter for screening mammogram for malignant neoplasm of breast * * * * Physician Interpretation * * * * #[id number] - [facility] SCREENING BILATERAL DIGITAL SCREENING MAMMOGRAM WITH CAD: 05/10/2019 HISTORY: Routine screening mammogram. Patient reports no breast problems. RESULT: TECHNIQUE: The study was acquired using full field digital technology and interpreted from soft copy. Current study was also evaluated with a Computer Aided Detection (CAD). Comparison is made to exams dated: 03/18/2016 mammogram, 01/16/2015 mammogram - [facility], 01/24/2013 mammogram, 04/04/2009 mammogram - [facility], and 07/08/2009 mammogram. The tissue of both breasts is extremely dense, which lowers the sensitivity of mammography. There are benign post operative findings in the left breast. No significant masses, calcifications, or other findings are seen in either breast. There has been no significant interval change. IMPRESSION: BENIGN FINDING There is no mammographic evidence of malignancy. A 1 year screening mammogram is recommended. Annie Davila M.D., jr/patrick:05/10/2019 13:00:26 Robotics Application Engineer(s): Radha Hyde (Stephenie)(Mono), [facility] letter sent: Normal over 40 Mammogram BI-RADS: 2 Benign finding Multiple national specialty organizations have released breast cancer screening guidelines for women at average risk for developing breast cancer - guidelines that are based on both evidence and opinion, yet differ on when to start and how often to screen for breast cancer. With representation from Breast Imaging, Internal Medicine, Women's Health, Family Medicine, and Medical/Surgical Oncology, the [facility] has carefully reviewed the data and reached the following consensus: 1) All women should engage in shared decision-making with their providers to decide when to start and how often to screen; 2) All women should have the opportunity to start screening mammography at age 40; 3) For women ages 45-55, we recommend annual screening mammograms; 4) For women ages 55 and over, we support both the transition from an annual to a biennial interval if this aligns more with patient's values and preferences, or continuation with annual screening; 5) All women should discuss with their providers when to stop screening mammograms. Company Secretary: Patrick Transcribe Date/Time: May 10 2019 11:06A Dictated by : ANNIE DAVILA MD This examination was interpreted and the report reviewed and electronically signed by: ANNIE DAVILA MD on May 10 2019 1:00PM EST Normal [facility] Comprehensive Panelon 2018 ALT [Catalytic activity/Vol] 21 U/L Normal 12-78 [facility] Comment on above: Performed By: #### P 14 #### [address] [address] ALP [Catalytic activity/Vol] 53 U/L Normal 45-117 [facility] Comment on above: Performed By: #### P 14 #### [facility] [address] [place], [place] [address] Protein [Mass/Vol] 7.1 g/dL Normal 6.4-8.2 [facility] Comment on above: Performed By: #### P 14 #### [facility] [address] [place], [place] [address] Bilirubin [Mass/Vol] 0.2 mg/dL Normal 0.2-1.0 [facility] Comment on above: Performed By: #### P 14 #### [facility] [address] [place], [place] [address] Creatinine [Mass/Vol] 0.74 mg/dL Normal 0.51-0.95 [facility] Comment on above: Performed By: #### P 14 #### [facility] [address] [place], [place] [address] AST [Catalytic activity/Vol] 20 U/L Normal 15-37 [facility] Comment on above: Performed By: #### P 14 #### [facility] [address] [place], [place] [address] Calcium [Mass/Vol] 8.6 mg/dL Normal 8.5-10.1 [facility] Comment on above: Performed By: #### P 14 #### [facility] [address] [place], [place] [address] Anion gap [Moles/Vol] 9 mmol/L Normal 8-16 [facility] Comment on above: Performed By: #### P 14 #### [facility] [address] [place], [place] [address] CO2 [Moles/Vol] 27 mmol/L Normal 21-32 [facility] Comment on above: Performed By: #### P 14 #### [facility] [address] [place], [place] [address] Albumin [Mass/Vol] 3.9 g/dL Normal 3.4-5.0 [facility] Comment on above: Performed By: #### P 14 #### [facility] [address] [place], [place] [address] Glucose [Mass/Vol] 84 mg/dL Normal 70-99 [facility] Comment on above: Performed By: #### P 14 #### [facility] [address] [place], [place] [address] Urea nitrogen [Mass/Vol] 19 mg/dL High 7-18 [facility] Comment on above: Performed By: #### P 14 #### [facility] [address] [place] [address] Chloride [Moles/Vol] 107 mmol/L Normal 98-107 [facility] Comment on above: Performed By: #### P 14 #### [facility] [address] [place] [address] Potassium [Moles/Vol] 3.7 mmol/L Normal 3.5-5.1 [facility] Comment on above: Performed By: #### P 14 #### [facility] [address] [place] [address] Sodium [Moles/Vol] 139 mmol/L Normal 136-145 [facility] Comment on above: Performed By: #### P 14 #### [facility] [address] [place] [address] Hemogramon 04-11-2019 Erythrocyte distribution width (RBC) [Ratio] 11.7 % Normal 11.5-15.9 [facility] Comment on above: Performed By: #### L CBC #### [facility] [address] [place] [address] Hematocrit (Bld) [Volume fraction] 35.0 % Low 37.0-47.0 [facility] Comment on above: Performed By: #### L CBC #### [place] [address] Hemoglobin (Bld) [Mass/Vol] 11.9 g/dL Low 12.0-16.0 [facility] Comment on above: Performed By: #### L CBC #### [facility] [address] [place] [address] MCH (RBC) [Entitic mass] 30.8 pg Normal 27.0-31.0 [facility] Comment on above: Performed By: #### L CBC #### [facility] [address] [place] [address] MCHC (RBC) [Mass/Vol] 34.0 % Normal 32.0-36.0 [facility] Comment on above: Performed By: #### L CBC #### [facility] [address] [place], [place] [address] MCV (RBC) [Entitic vol] 90.7 fL Normal 81.0-99.0 [facility] Comment on above: Performed By: #### L CBC #### [facility] [address] [place], [place] [address] Platelet mean volume (Bld) [Entitic vol] 10.1 fL Normal 7.1-10.5 [facility] Comment on above: Performed By: #### L CBC #### [facility] [address] [place], [place] [address] Platelets (Bld) [#/Vol] 318 thou/cmm Normal 150-400 [facility] Comment on above: Performed By: #### L CBC #### [facility] [address] [place] [address] RBC (Bld) [#/Vol] 3.86 mil/cmm Low 4.20-5.40 [facility] Comment on above: Performed By: #### L CBC #### [facility] [address] [place], [place] [address] WBC (Bld) [#/Vol] 7.7 thou/cmm Normal 4.8-10.5 [facility] Comment on above: Performed By: #### L CBC #### [address] [address] Lipid Profileon 04-11-2019 Cholesterol [Mass/Vol] 212 mg/dL High 0-199 [facility] Comment on above: Performed By: #### L LIPD #### [facility] [address] [place], [place] [address] Cholesterol in HDL [Mass/Vol] 53 mg/dL Normal >40 [facility] Comment on above: Performed By: #### L LIPD #### [facility] [address] [place], [place] [address] Cholesterol in LDL [Mass/Vol] 143 mg/dL Normal 0-150 [facility] Comment on above: Performed By: #### L LIPD #### [address] [address] Cholesterol.total/Ch olesterol in HDL [Mass ratio] 4.0 {ratio} Normal 1.8-5.3 [facility] Comment on above: Performed By: #### L LIPD #### [facility] [address] [place] [id number] Triglyceride Blood 80 mg/dL Normal 0-149 [facility] Comment on above: Performed By: #### L LIPD #### [place] [address] Risk Factor See Below Normal [facility] Comment on above: Result Comment: Card iac Risk Factor The CHD risk factor is based on the total Chol/HDL ratio. Other factors affect CHD risk such as hypertension, smoking, diabetes, severe obesity and premature CHD. Cardiac Risk Total Chol/HDL ratio Men Women 1/2 avg risk 3.4-4.9 3.3-6.3 Avg risk 5.0-9.5 6.4-7.0 2x avg risk 9.6-23.3 7.1-10.9 3x avg risk >23.4 >11.0 Performed By: #### L LIPD #### [place] [address] MDRD GFRon 04-11-2019 GFR/1.73 sq M predicted among non-blacks MDRD (S/P/Bld) [Vol rate/Area] mL/min/{1.73_m2} Normal >60mL/min/1.7 3m2 [facility] Comment on above: Result Comment: If t he patient is , multiply the result by 1.210. Performed By: #### G FR #### [place] [address] TSH reflex ([place])on 04-11-20 19 TSH Qn 1.48 uIU/mL Normal 0.34-4.82 [facility] Comment on above: Result Comment: Free T4 reflexed if TSH is less than or greater than the reference range. Performed By: #### L TSHR #### [facility] [address] [place], [place] [address] Discharge Summaryon 01-17-20 Discharge Summary MR[id number] Admitted: 12/23/2016 Discharged: 12/28/2016 Date of : 1970 Physician: Ricki Grace M.D. DISCHARGE SUMMARYPRINCIPAL DIAGNOSIS: Thoracic outlet syndrome.PROCEDURES PERFORMED: Da Eliseo assisted 1st rib resection.CONSULTING SERVICES: None.HISTORY OF PRESENT ILLNESS: The patient is a 46-year-old female who wasadmitted for the above-mentioned procedure for thoracic outlet syndrome.HOSPITAL COURSE: The patient was admitted same day of the surgery. Thepatient tolerated the procedure well in surgical ICU postoperatively whereshe was monitored. Postoperatively, the patient was doing well. Onpostoperative day#1, pain was well controlled on a [employer] pump. She was begunon a regular diet. On postoperative day #1, she was transferred [facility]. On postoperative day #2, the patient's COMMUNITY HEALTH NURSING DIRECTOR wasdiscontinued and pain control was achieved on oral pain medications. Thepatient was tolerating regular diet. The patient chest tube still morethan desired output. The patient was therefore kept until postoperativeday #4. The chest tube output was deemed to be satisfactory. Chest tubeswere pulled. A chest x-ray was obtained. The chest x-ray showed a minimalpneumothorax, therefore, the patient had to a stay night to monitor andresolution of pneumothorax. On postoperative day #5, another chest x-raywas obtained and the pneumothorax had resolved. The patient has pain wellcontrolled, tolerating regular diet, and felt well enough to be dischargedhome.CONDITION AT DISCHARGE: Good.DISPOSITION: Discharged home.DISCHARGE INSTRUCTIONS:1. Follow up with Dr. Grace in 1 weeks time.2. No lifting greater than 5 pounds.3. Begin resume all home medications.DISCHARGE MEDICATIONS:1. Colace 100 mg 1 capsule twice daily.2. Methocarbamol 500 mg, 2 tablets 3 times daily.3. Percocet 1-2 tablets every 4 hours as needed for pain.4. Topiramate oral 25 mg twice daily.5. Zofran 4 mg as needed.6. Advil as needed.7. Ventolin HFA 2 puffs as needed.Reviewed By:Daniela Weaver MD 01/17/2017 07:55 PElectronically Signed by:Ricki Grace M.D. 02/08/2017 06:26 P Ricki Grace M.D."I have reviewed this discharge summary and confirmed the resident'sdocumentation. Please note that there may be additional documentation fromme."Date Dict: 01/15/2017/03:09 P/Nino Cox Trans: 01/16/2017 06:53 A/[id number] Normal [facility] PORTABLE CHEST 1 VIEWon 12-05 PORTABLE CHEST 1 VIEW [facility] Trvreoocl[address] [place] [address] ==Patient Name: CALLIE KENNEDY : 1970Sex: FAge: Race: WhiteMRN: [id number]. Location: [id number] Status: DVisit #: [id number] Date: 12/28/2016 5:00:00 AMCompleted Date: 12/28/2016 07:45 AMRequesting Provider: LIBBY CAMPOS Attending Provider: RICKI GRACE Report Copy To: Signs & Symptoms: Chest PainHistory: Patient history not availableComments: R/O PneumothoraxExam: PORTABLE CHEST 1 VIEWAccession #: [id number] =========PORTABLE CHEST 1 VIEW 12/28/2016 7:45 AM EDT SIGNS AND SYMPTOMS: Chest Pain TECHNOLOGIST COMMENTS: chest pain chest tube removal yesterday rt side film on expiration QUESTION FOR THE RADIOLOGIST: R/O Pneumothorax PROTOCOL: AP(PA) view was obtained. COMPARISON: December 27, 2016 IMPRESSION: No definite residual right-sided pneumothorax. Expected subcutaneous emphysema along the right chest wall. Electronically signed by:Isma Lopez M.D.. Transcribed by: [email or web address], User Resident: Electronically Signed by: ISMA LOPEZ @ 12/28/2016 10:46 AM Normal [facility] Comment on above: Order Comment: REMINGTON Donahue NOTE; EFFECTIVE 10-18-16 REFERENCE RANGES FOR THE PERFUSION BLOODPANEL HAVE BEEN UPDATED TO REFLECT THE FABRIC PATTERN GRADER'S PUBLISHEDREFERENCE RANGES. PORTABLE CHEST 1 VIEWon 12-05 PORTABLE CHEST 1 VIEW [facility] Fglkdcfsd[address] [place] [address] ==Patient Name: CALLIE KENNEDY : 1970Sex: FAge: Race: WhiteMRN: [id number]. Location: [id number] Status: IVisit #: [id number] Date: 12/27/2016 4:00:00 PMCompleted Date: 12/27/2016 04:33 PMRequesting Provider: DANIELA WEAVER Attending Provider: RICKI GRACE Report Copy To: Signs & Symptoms: OtherHistory: Patient history not availableComments: R/O Pneumothorax, d/c'd chest tubeExam: PORTABLE CHEST 1 VIEWAccession #: [id number] =========PORTABLE CHEST 1 VIEW 12/27/2016 4:33 PM EDT SIGNS AND SYMPTOMS: Other TECHNOLOGIST COMMENTS: post chest tube removal QUESTION FOR THE RADIOLOGIST: R/O Pneumothorax, d/c'd chest tube PROTOCOL: AP(PA) view was obtained. COMPARISON: December 25, 2016. FINDINGS: Since the prior exam, the patient's 2 right-sided chest tubes have been removed. Apparent right pneumothorax may represent residual track from the recently pole chest tubes. The lungs appear clear of infiltrate, the heart and mediastinum appear within normal limits. IMPRESSION: Status post removal right chest tubes. Apparent small residual pneumothorax may represent tract from a recently removed chest tubes. Electronically signed by:Fabiana Dillard. Transcribed by: [email or web address], User Resident: Electronically Signed by: FABIANA DILLARD @ 12/27/2016 05:33 PM Normal [facility] Comment on above: Order Comment: REMINGTON Donahue NOTE; EFFECTIVE 5-15-17 REFERENCE RANGES FOR THE PERFUSION BLOODPANEL HAVE BEEN UPDATED TO REFLECT THE FABRIC PATTERN GRADER'S PUBLISHEDREFERENCE RANGES. BASIC METABOLIC PANELon 07-2 -2016 Calcium 8.2 mg/dL Low 8.6-10.3 [facility] Comment on above: Order Comment: REMINGTON Donahue NOTE; EFFECTIVE 5-15-17 REFERENCE RANGES FOR THE PERFUSION BLOODPANEL HAVE BEEN UPDATED TO REFLECT THE FABRIC PATTERN GRADER'S PUBLISHEDREFERENCE RANGES. Performed By: #### 3 7038 ####[facility] [place] [address], [facility] Chloride 105 mmol/L Normal 98-107 [facility] Comment on above: Order Comment: REMINGTON Donahue NOTE; EFFECTIVE 5-15-17 REFERENCE RANGES FOR THE PERFUSION BLOODPANEL HAVE BEEN UPDATED TO REFLECT THE FABRIC PATTERN GRADER'S PUBLISHEDREFERENCE RANGES. Performed By: #### 3 0738 ####[facility] [place] [address], [facility] CO2 28 mmol/L Normal 21-31 [facility] Comment on above: Order Comment: REMINGTON Donahue NOTE; EFFECTIVE 5-15-17 REFERENCE RANGES FOR THE PERFUSION BLOODPANEL HAVE BEEN UPDATED TO REFLECT THE FABRIC PATTERN GRADER'S PUBLISHEDREFERENCE RANGES. Performed By: #### 3 0738 ####[facility] [facility].[address] Creatinine 0.73 mg/dL Normal 0.60-1.20 [facility] Comment on above: Order Comment: REMINGTON Donahue NOTE; EFFECTIVE 5-15-17 REFERENCE RANGES FOR THE PERFUSION BLOODPANEL HAVE BEEN UPDATED TO REFLECT THE FABRIC PATTERN GRADER'S PUBLISHEDREFERENCE RANGES. Performed By: #### 3 0738 ####[place] [address] [facility].[address] eGFR (black) mL/min/{1.73_m2} Normal >60 [facility] Comment on above: Order Comment: REMINGTON Donahue NOTE; EFFECTIVE 5-15-17 REFERENCE RANGES FOR THE PERFUSION BLOODPANEL HAVE BEEN UPDATED TO REFLECT THE FABRIC PATTERN GRADER'S PUBLISHEDREFERENCE RANGES. Performed By: #### 3 0738 ####[place] [address] [facility].[address] eGFR (non-black) mL/min/{1.73_m2} Normal >60 Th e [facility] Comment on above: Order Comment: REMINGTON Donahue NOTE; EFFECTIVE 5-15-17 REFERENCE RANGES FOR THE PERFUSION BLOODPANEL HAVE BEEN UPDATED TO REFLECT THE FABRIC PATTERN GRADER'S PUBLISHEDREFERENCE RANGES. Performed By: #### 3 0738 ####[address] [place] [address], [facility] Glucose mass conc 102 mg/dL High 70-100 [facility] Comment on above: Order Comment: REMINGTON Donahue NOTE; EFFECTIVE 5-15-17 REFERENCE RANGES FOR THE PERFUSION BLOODPANEL HAVE BEEN UPDATED TO REFLECT THE FABRIC PATTERN GRADER'S PUBLISHEDREFERENCE RANGES. Performed By: #### 3 0738 ####[facility] [facility].[address] Potassium molar conc 4.0 mmol/L Normal 3.5-5.1 [facility] Comment on above: Order Comment: REMINGTON Donahue NOTE; EFFECTIVE 5-15-17 REFERENCE RANGES FOR THE PERFUSION BLOODPANEL HAVE BEEN UPDATED TO REFLECT THE FABRIC PATTERN GRADER'S PUBLISHEDREFERENCE RANGES. Performed By: #### 3 0738 ####[facility] [facility].[address] Sodium 137 mmol/L Normal 136-145 [facility] Comment on above: Order Comment: REMINGTON Donahue NOTE; EFFECTIVE 5-15-17 REFERENCE RANGES FOR THE PERFUSION BLOODPANEL HAVE BEEN UPDATED TO REFLECT THE FABRIC PATTERN GRADER'S PUBLISHEDREFERENCE RANGES. Performed By: #### 3 0738 ####[facility] [facility].[address] Urea nitrogen 6 mg/dL Low 7-25 [facility] Comment on above: Order Comment: REMINGTON Donahue NOTE; EFFECTIVE 5-15-17 REFERENCE RANGES FOR THE PERFUSION BLOODPANEL HAVE BEEN UPDATED TO REFLECT THE FABRIC PATTERN GRADER'S PUBLISHEDREFERENCE RANGES. Performed By: #### 3 0738 ####[facility] [facility].[address] CBC COMPLETE BLOOD COUNTon - Erythrocyte distribution width Auto Ratio (RBC) 12.7 % Normal 11.5-16.9 [facility] Comment on above: Order Comment: REMINGTON Donahue NOTE; EFFECTIVE 5-15-17 REFERENCE RANGES FOR THE PERFUSION BLOODPANEL HAVE BEEN UPDATED TO REFLECT THE FABRIC PATTERN GRADER'S PUBLISHEDREFERENCE RANGES. Performed By: #### 3 0738 ####[facility] [place] [address], [facility] Erythrocytes (RBC) 3.34 mill/mm3 Low 3.50-5.50 [facility] Comment on above: Order Comment: REMINGTON Donahue NOTE; EFFECTIVE 5-15-17 REFERENCE RANGES FOR THE PERFUSION BLOODPANEL HAVE BEEN UPDATED TO REFLECT THE FABRIC PATTERN GRADER'S PUBLISHEDREFERENCE RANGES. Performed By: #### 3 0738 ####[facility] [facility].[address] Hematocrit (HCT) 29.8 % Low 36.0-48.0 [facility] Comment on above: Order Comment: REMINGTON Donahue NOTE; EFFECTIVE 5-15-17 REFERENCE RANGES FOR THE PERFUSION BLOODPANEL HAVE BEEN UPDATED TO REFLECT THE FABRIC PATTERN GRADER'S PUBLISHEDREFERENCE RANGES. Performed By: #### 3 0738 ####[facility] Hemoglobin mass conc (Bld) 10.1 g/dL Low 12.0-15.0 [facility] Comment on above: Order Comment: REMINGTON Donahue NOTE; EFFECTIVE 5-15-17 REFERENCE RANGES FOR THE PERFUSION BLOODPANEL HAVE BEEN UPDATED TO REFLECT THE FABRIC PATTERN GRADER'S PUBLISHEDREFERENCE RANGES. Performed By: #### 3 0738 ####[facility] MCH 30.3 pg Normal 24.0-32.0 [facility] Comment on above: Order Comment: REMINGTON Donahue NOTE; EFFECTIVE 5-15-17 REFERENCE RANGES FOR THE PERFUSION BLOODPANEL HAVE BEEN UPDATED TO REFLECT THE FABRIC PATTERN GRADER'S PUBLISHEDREFERENCE RANGES. Performed By: #### 3 0738 ####[facility] [facility].[address] MCHC mass conc (RBC) 33.8 g/dL Normal 32.0-36.0 [facility] Comment on above: Order Comment: REMINGTON Donahue NOTE; EFFECTIVE 5-15-17 REFERENCE RANGES FOR THE PERFUSION BLOODPANEL HAVE BEEN UPDATED TO REFLECT THE FABRIC PATTERN GRADER'S PUBLISHEDREFERENCE RANGES. Performed By: #### 3 0738 ####[facility] [place] [address] MCV 89.4 fL Normal 80.0-100.0 [facility] Comment on above: Order Comment: REMINGTON Donahue NOTE; EFFECTIVE 5-15-17 REFERENCE RANGES FOR THE PERFUSION BLOODPANEL HAVE BEEN UPDATED TO REFLECT THE FABRIC PATTERN GRADER'S PUBLISHEDREFERENCE RANGES. Performed By: #### 3 0738 ####[facility] [facility].[address] PLAT CNT 231 Thou/mm3 Normal 100-400 [facility] Comment on above: Order Comment: REMINGTON Donahue NOTE; EFFECTIVE 5-15-17 REFERENCE RANGES FOR THE PERFUSION BLOODPANEL HAVE BEEN UPDATED TO REFLECT THE FABRIC PATTERN GRADER'S PUBLISHEDREFERENCE RANGES. Performed By: #### 3 0738 ####[facility] [facility].[address] WBC (Leukocytes) 9.0 Thou/mm3 Normal 4.0-10.0 [facility] Comment on above: Order Comment: REMINGTON Donahue NOTE; EFFECTIVE 5-15-17 REFERENCE RANGES FOR THE PERFUSION BLOODPANEL HAVE BEEN UPDATED TO REFLECT THE FABRIC PATTERN GRADER'S PUBLISHEDREFERENCE RANGES. Performed By: #### 3 0738 ####[facility] [facility].[address] MAGNESIUM BLOODon 12-25-2016 Magnesium 2.3 mg/dL Normal 1.9-2.7 [facility] Comment on above: Order Comment: REMINGTON Donahue NOTE; EFFECTIVE 5-15-17 REFERENCE RANGES FOR THE PERFUSION BLOODPANEL HAVE BEEN UPDATED TO REFLECT THE FABRIC PATTERN GRADER'S PUBLISHEDREFERENCE RANGES. Performed By: #### 3 0738 ####[facility] [facility].[address] PHOSPHORUS BLOODon 7 Phosphate 2.4 mg/dL Low 2.5-5.0 [facility] Comment on above: Order Comment: REMINGTON Donahue NOTE; EFFECTIVE 5-15-17 REFERENCE RANGES FOR THE PERFUSION BLOODPANEL HAVE BEEN UPDATED TO REFLECT THE FABRIC PATTERN GRADER'S PUBLISHEDREFERENCE RANGES. Performed By: #### 3 0738 ####[facility] PORTABLE CHEST 1 VIEWon 12-05 PORTABLE CHEST 1 VIEW [facility] Saulkwnrd[address] [place] [address] ==Patient Name: CALLIE KENNEDY : 1970Sex: FAge: Race: WhiteMRN: [id number]. Location: [id number] Status: IVisit #: [id number] Date: 12/25/2016 5:00:00 AMCompleted Date: 12/25/2016 07:42 AMRequesting Provider: ROSEMARIE CORRALES Attending Provider: RICKI GRACE Report Copy To: Signs & Symptoms: Post Chest Tube PlacementHistory: Patient history not availableComments: R/O PneumothoraxExam: PORTABLE CHEST 1 VIEWAccession #: [id number] =========PORTABLE CHEST 1 VIEW 12/25/2016 7:42 AM EDT SIGNS AND SYMPTOMS: Post Chest Tube Placement TECHNOLOGIST COMMENTS: post chest tube placement QUESTION FOR THE RADIOLOGIST: R/O Pneumothorax PROTOCOL: AP(PA) view was obtained. COMPARISON: 12/24/2016 FINDINGS: Postoperative changes of the first rib resection.Unchanged position of 2 chest tubes. Unchanged small right apical pneumothorax.Lungs are clear. No pleural effusion. No pneumothorax.Cardiomedia stinal silhouette within normal limits. IMPRESSION: Unchanged position of 2 right chest tubes and small right apical pneumothorax. Approved by:Martín Washington on 12/25/2016 7:53 AM EDT. IDale, have reviewed the images and report and concur with these findings. Electronically signed by:Dale Pereira. Transcribed by: [email or web address], User Resident: MARTÍN WASHINGTONElectronically Signed by: DALE PEREIRA @ 12/25/2016 12:02 PMI personally read this/these film(s) with this resident Normal [facility] Comment on above: Order Comment: PLEAS E NOTE; EFFECTIVE 10-18-16 REFERENCE RANGES FOR THE PERFUSION BLOODPANEL HAVE BEEN UPDATED TO REFLECT THE FABRIC PATTERN GRADER'S PUBLISHEDREFERENCE RANGES. BASIC METABOLIC PANELon - Calcium 8.0 mg/dL Low 8.6-10.3 [facility] Comment on above: Order Comment: No: D o not add to previous draw Performed By: #### 0 0071, 15246, 46109 ####[facility] [place] [address], [facility] Chloride 109 mmol/L High 98-107 [facility] Comment on above: Order Comment: No: D o not add to previous draw Performed By: #### 0 0071, 45840, 15323 ####[facility] [place] [address], [facility] CO2 23 mmol/L Normal 21-31 [facility] Comment on above: Order Comment: No: D o not add to previous draw Performed By: #### 0 0071, 83083, 93785 ####[facility] [place] [address], [facility] Creatinine 0.65 mg/dL Normal 0.60-1.20 [facility] Comment on above: Order Comment: No: D o not add to previous draw Performed By: #### 0 0071, 20045, 93060 ####[facility] [place] [address], [facility] eGFR (black) mL/min/{1.73_m2} Normal >60 [facility] Comment on above: Order Comment: No: D o not add to previous draw Performed By: #### 0 0071, 40218, 04095 ####[facility] [place] [address], [facility] eGFR (non-black) mL/min/{1.73_m2} Normal >60 Th e [facility] Comment on above: Order Comment: No: D o not add to previous draw Performed By: #### 0 0071, 92015, 78896 ####[facility] [place] [address], [facility] Glucose mass conc 97 mg/dL Normal 70-100 [facility] Comment on above: Order Comment: No: D o not add to previous draw Performed By: #### 0 0071, 01565, 49495 ####[facility] [place] [address], [facility] Potassium molar conc 3.6 mmol/L Normal 3.5-5.1 [facility] Comment on above: Order Comment: No: D o not add to previous draw Performed By: #### 0 0071, 17946, 49475 ####[facility] Sodium 138 mmol/L Normal 136-145 [facility] Comment on above: Order Comment: No: D o not add to previous draw Performed By: #### 0 0071, 96977, 66120 ####[facility] [place] [address], [facility] Urea nitrogen 10 mg/dL Normal 7-25 [facility] Comment on above: Order Comment: No: D o not add to previous draw Performed By: #### 0 0071, 32550, 67421 ####[facility] CBC COMPLETE BLOOD COUNTon 0 - Erythrocyte distribution width Auto Ratio (RBC) 12.9 % Normal 11.5-16.9 [facility] Comment on above: Order Comment: REMINGTON THOMPSON; EFFECTIVE 5-15-17 REFERENCE RANGES FOR THE PERFUSION BLOODPANEL HAVE BEEN UPDATED TO REFLECT THE FABRIC PATTERN GRADER'S PUBLISHEDREFERENCE RANGES. Performed By: #### 3 0738 ####[place] [address] Erythrocytes (RBC) 3.45 mill/mm3 Low 3.50-5.50 [facility] Comment on above: Order Comment: REMINGTON Donahue NOTE; EFFECTIVE 5-15-17 REFERENCE RANGES FOR THE PERFUSION BLOODPANEL HAVE BEEN UPDATED TO REFLECT THE FABRIC PATTERN GRADER'S PUBLISHEDREFERENCE RANGES. Performed By: #### 3 0738 ####[facility] Hematocrit (HCT) 30.8 % Low 36.0-48.0 [facility] Comment on above: Order Comment: REMINGTON Donahue NOTE; EFFECTIVE 5-15-17 REFERENCE RANGES FOR THE PERFUSION BLOODPANEL HAVE BEEN UPDATED TO REFLECT THE FABRIC PATTERN GRADER'S PUBLISHEDREFERENCE RANGES. Performed By: #### 3 0738 ####[facility] Hemoglobin mass conc (Bld) 10.3 g/dL Low 12.0-15.0 [facility] Comment on above: Order Comment: REMINGTON Donahue NOTE; EFFECTIVE 5-15-17 REFERENCE RANGES FOR THE PERFUSION BLOODPANEL HAVE BEEN UPDATED TO REFLECT THE FABRIC PATTERN GRADER'S PUBLISHEDREFERENCE RANGES. Performed By: #### 3 0738 ####[place] [address] MCH 29.8 pg Normal 24.0-32.0 [facility] Comment on above: Order Comment: REMINGTON Donahue NOTE; EFFECTIVE 5-15-17 REFERENCE RANGES FOR THE PERFUSION BLOODPANEL HAVE BEEN UPDATED TO REFLECT THE FABRIC PATTERN GRADER'S PUBLISHEDREFERENCE RANGES. Performed By: #### 3 0738 ####[address] MCHC mass conc (RBC) 33.4 g/dL Normal 32.0-36.0 [facility] Comment on above: Order Comment: PLELIBRADO E NOTE; EFFECTIVE 5-15-17 REFERENCE RANGES FOR THE PERFUSION BLOODPANEL HAVE BEEN UPDATED TO REFLECT THE FABRIC PATTERN GRADER'S PUBLISHEDREFERENCE RANGES. Performed By: #### 3 0738 ####[facility] [place] [address], [facility] MCV 89.1 fL Normal 80.0-100.0 [facility] Comment on above: Order Comment: PLELIBRADO E NOTE; EFFECTIVE 5-15-17 REFERENCE RANGES FOR THE PERFUSION BLOODPANEL HAVE BEEN UPDATED TO REFLECT THE FABRIC PATTERN GRADER'S PUBLISHEDREFERENCE RANGES. Performed By: #### 3 0738 ####[facility] [place] [address], [facility] PLAT CNT 223 Thou/mm3 Normal 100-400 [facility] Comment on above: Order Comment: REMINGTON Donahue NOTE; EFFECTIVE 5-15-17 REFERENCE RANGES FOR THE PERFUSION BLOODPANEL HAVE BEEN UPDATED TO REFLECT THE FABRIC PATTERN GRADER'S PUBLISHEDREFERENCE RANGES. Performed By: #### 3 0738 ####[facility] WBC (Leukocytes) 12.3 Thou/mm3 High 4.0-10.0 [facility] Comment on above: Order Comment: REMINGTON Donahue NOTE; EFFECTIVE 5-15-17 REFERENCE RANGES FOR THE PERFUSION BLOODPANEL HAVE BEEN UPDATED TO REFLECT THE FABRIC PATTERN GRADER'S PUBLISHEDREFERENCE RANGES. Performed By: #### 3 0738 ####[facility] MAGNESIUM BLOODon 12-24-2016 Magnesium 1.6 mg/dL Low 1.9-2.7 [facility] Comment on above: Order Comment: No: D o not add to previous draw Performed By: #### 0 0071, 87542, 92044 ####[facility] Operative Reporton 7 Operative Report MR#: [id number] [facility] Name[facility] Callie Kennedy Room #: [id number] Discharge Date: Birthdate: 1970 OPERATIVE REPORTDATE OF SURGERY: 12/23/2016SURGEON: Ricki Grace M.D.PREOPERATIVE DIAGNOSIS: Traumatic right neurogenic thoracic outletsyndrome, noncervical rib.POSTOPERATIVE DIAGNOSIS: Traumatic right neurogenic thoracic outletsyndrome, noncervical rib.OPERATION PERFORMED:1. Right supraclavicular anterior scalenectomy.2. Right endoscopic robotically assisted da eliseo.3. Right transaxillary 1st rib resection and resection of type 3 and type 5 of the Ada classification.4. Right partial middle scalenectomy.BRIEF CLINICAL SUMMARY: Ms. 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 The patient was treated properly conservative managementand the diagnosis of thoracic outlet syndrome was recently addressed andmade towards the end of 2013. I had seen the patient initially in May2015, that is nearly year and a half ago. The patient has been seen by 2previous certified vascular surgeons and [facility] already he had advisedsupraclavicular decompression. The patient was seen by Dr. Pennington,confirmed the diagnosis. The patient was referred to me. We can refer tothe multiple times that I have seen the patient, but essentially she hadatypical symptoms of thoracic outlet neurogenic C8-T1 predominantlysymptoms, pain, numbness, and paresthesias of the right arm. The patienthad an extraordinarily sensitive Ada examination or supraclavicular tenderpoint and the patient did not have an arterial component. The patient didnot have cervical rib. The patient although initially had a pectoralisminor irritation. The pectoralis minor syndrome was no longer a problemand I considered that there was no need of any intervention for thepectoralis minor. I felt all along that the patient needed a doubledecompression that is right anterior scalenectomy supraclavicularly andright endoscopic robotically assisted transaxillary approach suspicious ofcervical bands type 3, type 4, and type 5. The patient was informed of thenature of the disease process and the chances to proceed with surgery. Wehad an unacceptable in my opinion approval from worker's compensation anddifferent CPT codes that we have provided according to the guidelines ofdenise, standard practice of thoracic outlet surgery and the patient finallywas approved to all the codes that we submitted except for the code ofanterior scalenectomy. Actually, there is no code for anteriorscalenectomy. The preexisting codes and CPT codes for [facility] [employer] covers already scalenotomy, but scalenotomy is an obsoleteprocedure and a scalenectomy is a much higher technical demand operationand so we are using 57523, which is unspecified code to nominate thescalenectomy and this has been our practice and acceptance by insuranceotherwise. The patient was informed of the condition because the [id number] was not approved up to 24-48 hours ago and we submitted all thepertinent information to indicate that the patient needs thesupraclavicular anterior scalenectomy, as a vital part of the doubledecompression that we have already indicated. The patient signed theconsent, discussed with Anesthesia Department. The patient wastransferred to room 14.TECHNIQUE: With the patient in supine position under anesthesia withendotracheal intubation and double lumen intubation by Dr. Jenkins andall the proper monitoring lines, we positioned the patient for scalenectomythat is on supine position, the right arm, the right shoulder, the rightbreast, were all prepped with Betadine and proper draping was performed.We proceeded with supraclavicular incision. The sterile drapes wasinvolved with Betadine impregnated Vi-Drape. This one incision of 35 mmwas made in the supraclavicular approach. The skin, subcutaneous tissue,and platysma were divided and we did dissect the anterior scalenus and wedissected the sternocleidomastoid muscle. The lateral border of the musclewas dissected from the surrounding structures and the prescalene fat padwas exposed with an omohyoid muscle that had to be divided. We got arelatively healthy pad of connective tissue in the prescalene area but wefound scar tissue formation moderate degree in the scalenus anteriormuscle. This muscle was definitely large, was fibrotic particularly in theposterior aspect and had definitely inter communication bands or crossfiber bands between the scalenus anterior and scalenus medius and these wasin between C5 and C6 branches of the brachial plexus. Total anteriorscalenectomy was performed and completed by the transaxillary approach butthe muscle was large and had cross fiber bands that they were high betweenC5 and C6. The posterior portion of the muscle was definitely fibroticprobably related to the chronic stretching injury. The phrenic nerve waspreserved, was very medial nerve and we had excellent distribution anddissection of the C5, C6, C7, and actually we saw C8 branch of the brachialplexus. We were very happy with the decompression. We saw the subclavianartery as well and we washed the area with saline solution and we closedprescalene fat pad with 3-0 chromic, platysma 3-0 chromic interruptedsutures and then subcuticular closure of the skin, Steri-Strips, and thenwe moved the patient from supine position with the right side of the chestup for the robotic da Eliseo portion. The patient was properly positionedby myself and the Surgical team. We then proceeded with preparation with aBetadine to the skin of the chest, breast, shoulder, and the entire rightupper extremity. Sterile drapes were applied. Betadine impregnatedVi-Drape was used and we proceeded with the proper placement of the armwith the Curtis retractor. The robotic instrumentation was in place and weinitiated the surgery with a small incision of 35 mm in the hair axillaryarea as usual. The incision was carried all the way to the intercostalmuscle and we created a subpectoral flap and the endoscopic space. We [id number] as the retractor blade for the creation and maintenance of theendoscopic space and then we placed the port placements. We had the cameraport at about 12 cm from the working incision and with the base of 110 mmbetween the left and right arm, the ports of the da Eliseo were placed. Za Eliseo right arm was the typical J instrument with electrodynamic energyand the left one with Cadiere instrumentation. Dissection was carried outwith a 30-degree scope down and we dissected very nicely the 1st and the2nd rib. Intercostal muscle was removed and mild suction technique wasused. The thoracic outlet structures were dissected, the venouscompartment, as well as the lower arterial compartment. At that particulartime, we found that there was indeed a very narrow space in the lowerarterial compartment, which was ended up to be a type 3 band, later on verywell dissected and recognized during the dissection of the 1st rib. Thepatient also had a type 5 band, which was a broad-based superiorly butnarrow based in the hips and fascia on the 1st rib. Actually this bandbehave more like a type 6, but anyway we did proceed with a good dissectionof the thoracic outlet structures and the costoclavicular ligament wasdissected very nice the scalenus anterior muscle and we proceeded withsending the surgeon to the standby position in order to identify the ribunder the vein, already the pleura had been violated to create a moreendoscopic working space with the creation of pneumothorax. The surgeondid proceed with a fracture of the rib at the venous compartment, the ribwas wide. There was good insertion of the scalenus anterior. We didmobilize the rib anteriorly. The costoclavicular ligament was taken downand as we fractured the rib, we created a floater rib. The surgeon wentback to the console and we finalized dissection between the artery, thescalenus anterior, and the vein. The muscle was brought down. Thescalenus anterior muscle was large, came from the cervical compartment intothe thoracic area. The muscle was myosuctioned and removed completely.The surgeon then went to the dissection under the artery and the nerve wefound a type 5 and type 3 bands. Actually the type 5 was also havinginsertion in the hips and fascia. All that was taken down. There was scartissue formation in the surrounding areas that probably indicates thechronicity of the problem and the symptom, as the patient presentedclinically. We removed the 1st rib completely. We had very gooddissection in the inner belkofski of the rib as well as the outer belkofski ofthe rib. We demonstrated transverse process of T1 which indicated thecompletion of the 1st rib. We smoothed the bone very nicely. All this wascompleted with the surgeon at the standby position with the help of therobotic instrumentation to dissect the rib and the soft tissues.Obviously, we do not have the energy to cut the bone with the da Vincisurgical system but we did a pretty good dissection and decompression ofthis patient with the robotic instrumentation. Two chest tubes were placedat the end of the procedure, #20 intrathoracic taken through a separateincision on the left arm port and we created another small incision. The2 chest tubes were secured with 2-0 silk. There was closure of the workingincision and the right arm and the right camera port with subcuticularclosure for the ports 3-0 chromic interruptedly for the axillary incisionand 4-0 monofilament also for closure of the skin for the axillary workingincision. This surgery was initiated at 8:27 that is the supraclavicularportion and that finished at 9:19. A transaxillary portion started at 10o'clock and we finished at 12:23. The blood loss was minimal. The patienthad the dressing. Chest x-ray showed a very good resection of the rib andgood expansion of the lung field. Dr. Jenkins was present and thepatient was then transferred to recovery room.Electronically Signed by:Ricki Grace M.D. 12/26/2016 01:46 P Ricki Grace M.D.Date Dict: 12/23/2016/01:20 P/Ricki Grace M.D.Date Trans: 12/24/2016 08:02 A/Nicole_JN:[id number] 3cc: Jelani Pennington M.D. [address] [facility] [address] [facility] [address] Ricki Grace M.D. [address] [facility] [facility] [address]DXHWLYTRACY KUNZ Normal [facility] PHOSPHORUS BLOODon 7 Phosphate 3.1 mg/dL Normal 2.5-5.0 [facility] Comment on above: Order Comment: No: D o not add to previous draw Performed By: #### 0 0071, [id number], [id number] ####[facility] [facility] PORTABLE CHEST 1 VIEWon 12-05 PORTABLE CHEST 1 VIEW [facility] Center[facility] Iffoegnsp[address] [place] [address] ==Patient Name: CALLIE KENNEDY : 1970Sex: FAge: Race: WhiteMRN: [id number]. Location: [id number] Status: IVisit #: [id number] Date: 12/24/2016 5:00:00 AMCompleted Date: 12/24/2016 06:47 AMRequesting Provider: ROSEMARIE CORRALES Attending Provider: RICKI GRACE Report Copy To: Signs & Symptoms: Post Chest Tube PlacementHistory: Patient history not availableComments: R/O PneumothoraxExam: PORTABLE CHEST 1 VIEWAccession #: [id number] =========PORTABLE CHEST 1 VIEW 12/24/2016 6:47 AM EDT SIGNS AND SYMPTOMS: Post Chest Tube Placement TECHNOLOGIST COMMENTS: short of breath QUESTION FOR THE RADIOLOGIST: R/O Pneumothorax PROTOCOL: AP(PA) view was obtained. COMPARISON: December 23, 2016 FINDINGS: 2 chest tubes present on the right position unchanged. Small right apical pneumothorax unchanged. Distance from apex to the pleural line approximately 9 mm. Right lung is otherwise clear. Left lung essentially clear there is a tiny amount of blunting of the left costophrenic angle which could represent some pleural reaction and scarring or very small left pleural effusion. IMPRESSION: * Chest tubes on the right unchanged* Small right apical pneumothorax unchanged* Blunting of the left costophrenic angle could represent a very small pleural effusion or some pleural reaction and scarring Electronically signed by:Dale Pereira. Transcribed by: [email or web address], User Resident: Electronically Signed by: DALE PEREIRA @ 12/24/2016 09:11 AM Normal [facility] Comment on above: Order Comment: PLEAS E NOTE; EFFECTIVE 10-18-16 REFERENCE RANGES FOR THE PERFUSION BLOODPANEL HAVE BEEN UPDATED TO REFLECT THE FABRIC PATTERN GRADER'S PUBLISHEDREFERENCE RANGES. BASIC METABOLIC PANELon -2 Calcium 8.2 mg/dL Low 8.6-10.3 [facility] Comment on above: Order Comment: No: D o not add to previous drawNURSE DRAW PER RN FIDEL Performed By: #### 4 1000, 12778, 40696 ####[facility] [place] [address], [facility] Chloride 108 mmol/L High 98-107 [facility] Comment on above: Order Comment: No: D o not add to previous drawNURSE DRAW PER RN FIDEL Performed By: #### 4 1000, 83728, 23072 ####[facility] [facility] [place] [address], [facility] CO2 21 mmol/L Normal 21-31 [facility] Comment on above: Order Comment: No: D o not add to previous drawNURSE DRAW PER RN FIDEL Performed By: #### 4 1000, 47914, 14111 ####[facility] [place] [address], [facility] Creatinine 0.71 mg/dL Normal 0.60-1.20 [facility] Comment on above: Order Comment: No: D o not add to previous drawNURSE DRAW PER RN FIDEL Performed By: #### 4 1000, 16932, 19787 ####[facility] [place] [address], [facility] eGFR (black) mL/min/{1.73_m2} Normal >60 [facility] Comment on above: Order Comment: No: D o not add to previous drawNURSE DRAW PER RN FIDEL Performed By: #### 4 1000, , [id number] ####[facility] [facility] eGFR (non-black) mL/min/{1.73_m2} Normal >60 Th e [facility] Comment on above: Order Comment: No: D o not add to previous drawNURSE DRAW PER RN FIDEL Performed By: #### 4 1000, , 53426 ####[facility] Glucose mass conc 152 mg/dL High 70-100 [facility] Comment on above: Order Comment: No: D o not add to previous drawNURSE DRAW PER RN FIDEL Performed By: #### 4 1000, , ####[facility] [facility] Potassium molar conc 3.6 mmol/L Normal 3.5-5.1 [facility] Comment on above: Order Comment: No: D o not add to previous drawNURSE DRAW PER RN FIDEL Performed By: #### 4 1000, , 48918 ####[facility] [facility] Sodium 137 mmol/L Normal 136-145 [facility] Comment on above: Order Comment: No: D o not add to previous drawNURSE DRAW PER RN FIDEL Performed By: #### 4 1000, , 04192 ####[facility] [place] [address], [facility] Urea nitrogen 12 mg/dL Normal 7-25 [facility] Comment on above: Order Comment: No: D o not add to previous drawNURSE DRAW PER RN FIDEL Performed By: #### 4 1000, , 56949 ####[facility] CBC COMPLETE BLOOD COUNTon 0 7-20-2017 Erythrocyte distribution width Auto Ratio (RBC) 12.5 % Normal 11.5-16.9 [facility] Comment on above: Order Comment: No: D o not add to previous drawNURSE DRAW PER RN FIDEL Performed By: #### 5 0608 ####[facility] Erythrocytes (RBC) 3.83 mill/mm3 Normal 3.50-5.50 [facility] Comment on above: Order Comment: No: D o not add to previous drawNURSE DRAW PER RN FIDEL Performed By: #### 5 0608 ####[facility] Hematocrit (HCT) 34.0 % Low 36.0-48.0 [facility] Comment on above: Order Comment: No: D o not add to previous drawNURSE DRAW PER RN FIDEL Performed By: #### 5 0608 ####[facility] Hemoglobin mass conc (Bld) 11.4 g/dL Low 12.0-15.0 [facility] Comment on above: Order Comment: No: D o not add to previous drawNURSE DRAW PER RN FIDEL Performed By: #### 5 0608 ####[facility] MCH 29.9 pg Normal 24.0-32.0 [facility] Comment on above: Order Comment: No: D o not add to previous drawNURSE DRAW PER RN FIDEL Performed By: #### 5 0608 ####[facility] MCHC mass conc (RBC) 33.6 g/dL Normal 32.0-36.0 [facility] Comment on above: Order Comment: No: D o not add to previous drawNURSE DRAW PER RN FIDEL Performed By: #### 5 0608 ####[facility] [place] [address], [facility] MCV 89.0 fL Normal 80.0-100.0 [facility] Comment on above: Order Comment: No: D o not add to previous drawNURSE DRAW PER RN FIDEL Performed By: #### 5 0608 ####[facility] [place] [address], [facility] PLAT CNT 289 Thou/mm3 Normal 100-400 [facility] Comment on above: Order Comment: No: D o not add to previous drawNURSE DRAW PER RN FIDEL Performed By: #### 5 0608 ####[facility] [place] [address], [facility] WBC (Leukocytes) 23.0 Thou/mm3 High 4.0-10.0 [facility] Comment on above: Order Comment: No: D o not add to previous drawNURSE DRAW PER RN FIDEL Performed By: #### 5 0608 ####[facility] MAGNESIUM BLOODon 12-23-2016 Magnesium 1.6 mg/dL Low 1.9-2.7 [facility] Comment on above: Order Comment: No: D o not add to previous drawNURSE DRAW PER RN FIDEL Performed By: #### 4 1000, 84595, 87643 ####[facility] PERFUSION BLOOD PANELon 12-05 BASE EXCESS -3.0 mmol/L Low -2.0-3.0 [facility] Comment on above: Order Comment: REMINGTON Donahue NOTE; EFFECTIVE 10-18-16 REFERENCE RANGES FOR THE PERFUSION BLOODPANEL HAVE BEEN UPDATED TO REFLECT THE FABRIC PATTERN GRADER'S PUBLISHEDREFERENCE RANGES. Performed By: #### 3 0738 ####[facility] [place] [address], [facility] CO2 36.4 mmHg Normal 35.0-45.0 [facility] Comment on above: Order Comment: REMINGTON Donahue NOTE; EFFECTIVE 5-15-17 REFERENCE RANGES FOR THE PERFUSION BLOODPANEL HAVE BEEN UPDATED TO REFLECT THE FABRIC PATTERN GRADER'S PUBLISHEDREFERENCE RANGES. Performed By: #### 3 0738 ####[facility] [place] [address], [facility] Glucose mass conc 103 mg/dL Normal 70-105 [facility] Comment on above: Order Comment: REMINGTON Donahue NOTE; EFFECTIVE 5-15-17 REFERENCE RANGES FOR THE PERFUSION BLOODPANEL HAVE BEEN UPDATED TO REFLECT THE FABRIC PATTERN GRADER'S PUBLISHEDREFERENCE RANGES. Performed By: #### 3 0738 ####[facility] [place] [address], [facility] Hematocrit (HCT) 29 % Low 38-51 [facility] Comment on above: Order Comment: REMINGTON Donahue NOTE; EFFECTIVE 5-15-17 REFERENCE RANGES FOR THE PERFUSION BLOODPANEL HAVE BEEN UPDATED TO REFLECT THE FABRIC PATTERN GRADER'S PUBLISHEDREFERENCE RANGES. Performed By: #### 3 0738 ####[facility] [place] [address], [facility] Hemoglobin mass conc (Bld) 9.9 g/dL Low 12.0-17.0 [facility] Comment on above: Order Comment: REMINGTON Donahue NOTE; EFFECTIVE 5-15-17 REFERENCE RANGES FOR THE PERFUSION BLOODPANEL HAVE BEEN UPDATED TO REFLECT THE FABRIC PATTERN GRADER'S PUBLISHEDREFERENCE RANGES. Performed By: #### 3 0738 ####[facility] [place] [address], [facility] IONIZED CALCIUM 1.18 mmol/L Normal 1.12-1.32 [facility] Comment on above: Order Comment: REMINGTON Donahue NOTE; EFFECTIVE 5-15-17 REFERENCE RANGES FOR THE PERFUSION BLOODPANEL HAVE BEEN UPDATED TO REFLECT THE FABRIC PATTERN GRADER'S PUBLISHEDREFERENCE RANGES. Performed By: #### 3 0738 ####[facility] [place] [address], [facility] Oxygen in arterial blood 240.0 mm[Hg] High 80.0-105.0 [facility] Comment on above: Order Comment: REMINGTON Donahue NOTE; EFFECTIVE 5-15-17 REFERENCE RANGES FOR THE PERFUSION BLOODPANEL HAVE BEEN UPDATED TO REFLECT THE FABRIC PATTERN GRADER'S PUBLISHEDREFERENCE RANGES. Performed By: #### 3 0738 ####[facility] [facility].[address] pH of blood 7.39 [pH] Normal 7.35-7.45 [facility] Comment on above: Order Comment: REMINGTON Donahue NOTE; EFFECTIVE 5-15-17 REFERENCE RANGES FOR THE PERFUSION BLOODPANEL HAVE BEEN UPDATED TO REFLECT THE FABRIC PATTERN GRADER'S PUBLISHEDREFERENCE RANGES. Performed By: #### 3 0738 ####[facility] [place] [address], [facility] Potassium molar conc 3.0 mmol/L Low 3.5-4.9 [facility] Comment on above: Order Comment: REMINGTON Donahue NOTE; EFFECTIVE 5-15-17 REFERENCE RANGES FOR THE PERFUSION BLOODPANEL HAVE BEEN UPDATED TO REFLECT THE FABRIC PATTERN GRADER'S PUBLISHEDREFERENCE RANGES. Performed By: #### 3 0738 ####[place] [address] [facility].[address] Sodium 141 mmol/L Normal 138-146 [facility] Comment on above: Order Comment: REMINGTON Donahue NOTE; EFFECTIVE 5-15-17 REFERENCE RANGES FOR THE PERFUSION BLOODPANEL HAVE BEEN UPDATED TO REFLECT THE FABRIC PATTERN GRADER'S PUBLISHEDREFERENCE RANGES. Performed By: #### 3 0738 ####[facility] [place] [address], [facility] PHOSPHORUS BLOODon 07-20-201 7 Phosphate 3.1 mg/dL Normal 2.5-5.0 [facility] Comment on above: Order Comment: No: D o not add to previous drawNURSE DRAW PER OLGA PARRA Performed By: #### 4 1000, 22685, 54639 ####[facility] [facility] PORTABLE CHEST 1 VIEWon 07- PORTABLE CHEST 1 VIEW [facility] Ovvhcnh[address] [place] [address] ==Patient Name: CALLIE KENNEDY : 1970Sex: FAge: Race: WhiteMRN: [id number]. Location: OUTPPatient Status: IVisit #: [id number] Date: 12/23/2016 12:05:00 PMCompleted Date: 12/23/2016 12:33 PMRequesting Provider: RICKI GRACE Attending Provider: RICKI GRACE Report Copy To: Signs & Symptoms: post rib resection checking for pneumoHistory: post rib resection checking for pneumoComments: post rib resection checking for pneumoExam: PORTABLE CHEST 1 VIEWAccession #: [id number] =========PORTABLE CHEST 1 VIEW 12/23/2016 12:33 PM EDT SIGNS AND SYMPTOMS: post rib resection checking for pneumo TECHNOLOGIST COMMENTS: post right sided rib resection with chest tube placement checking for pneumo QUESTION FOR THE RADIOLOGIST: post rib resection checking for pneumo PROTOCOL: AP(PA) view was obtained. COMPARISON: None FINDINGS: Postoperative changes of first right rib resection with surgical clips and subcutaneous emphysema overlying the right hemithorax. 2 right chest tubes with tip overlying the right hemithorax. A double-lumen endotracheal tube in place with left endobronchial extension.An enteric tube is noted with tip just below the diaphragm, likely an esophageal probe. Mild deepening of the right costophrenic angle, possibly deep sulcus sign with small right pneumothorax. Mild right basal opacity, likely mild basal atelectasis. Left lung is clear. No pleural effusion. Cardiomediastinal silhouette within normal limits. IMPRESSION: 1. Expected postoperative changes of first right rib resection.2. [address] tubes in place with suspected small right pneumothorax. Approved by:Martín Washington on 12/23/2016 1:54 PM EDT. I, Yamileth Kwan, have reviewed the images and report and concur with these findings. Electronically signed by:Yamileth Kwan. Transcribed by: [email or web address], User Resident: MARTÍN WASHINGTONElectronically Signed by: YAMILETH KWAN @ 12/23/2016 10:58 PMI personally read this/these film(s) with this resident Normal [facility] Comment on above: Order Comment: post rib resection checking for pneumo TYPE AND CROSSMATCHon 2016 ABO INTERPRETATION O Normal [facility] Comment on above: Performed By: #### 6 2594 ####[facility] [facility].[address] ANTIBODY SCREEN Negative Normal [facility] Comment on above: Performed By: #### 6 2594 ####[facility] [facility].[address] RH INTERPRETATION Positive Normal [facility] Comment on above: Performed By: #### 6 2594 ####[facility] [place] [address], [facility] BLADDER SCAN [facility] Vital Signs Date Time Vital Sign Value Performing Clinician Facility 01-28-2025 15:040 Body height 167.6 cm Annika BLEVINS Work Phone: [facility] 01-28-2025 15:22-040 Body mass index (BMI) [Ratio] 26.31 kg/m2 Annika BLEVINS Work Phone: [facility] 01-28-2025 15:040 Body temperature 98.6 [degF] Annika Higgins CERTIFIED WELDER-VINYL CUTTER Work Phone: [facility] 01-28-2025 15:22-0400 Body weight 73.94 kg Annika Higgins CERTIFIED WELDER-VINYL CUTTER Work Phone: [facility] 01-28-2025 15:22-0400 Diastolic blood pressure 84 mm[Hg] Annika Higgins CERTIFIED WELDER-VINYL CUTTER Work Phone: [facility] 01-28-2025 15:22-0400 Heart rate 98 /min Annika Higgins CERTIFIED WELDER-VINYL CUTTER Work Phone: [facility] 01-28-2025 15:22-0400 Respiratory rate 18 /min Annika Higgins CERTIFIED WELDER-VINYL CUTTER Work Phone: [facility] 01-28-2025 15:22-0400 SaO2% (BldA) [Mass fraction] 97 % Annika Higgins CERTIFIED WELDER-VINYL CUTTER Work Phone: [facility] 01-28-2025 15:22-0400 Systolic blood pressure 131 mm[Hg] Annika Higgins CERTIFIED WELDER-VINYL CUTTER Work Phone: [facility] 11-14-2024 13:16-0400 Body height 167.6 cm Liz Avery PA-C Work Phone: [facility] 11-14-2024 13:16-0400 Body mass index (BMI) [Ratio] 24.23 kg/m2 iLz Morganon PA-C Work Phone: [facility] 11-14-2024 13:16-0400 Body weight 68.08 kg Liz Morganon PA-C Work Phone: [facility] 11-14-2024 13:16-0400 Diastolic blood pressure 72 mm[Hg] Liz Morganon PA-C Work Phone: [facility] 11-14-2024 13:16-0400 Heart rate 89 /min Liz Morganon PA-C Work Phone: [facility] 11-14-2024 13:16-0400 Systolic blood pressure 110 mm[Hg] Liz MCCARTY-Briana Work Phone: [facility] 10-03-2024 22:34-0400 Body temperature 98.01 [degF] Milana Sonny Work Phone: [facility] 10-03-2024 22:34-0400 Diastolic blood pressure 86 mm[Hg] Milana Sonny Work Phone: [facility] 10-03-2024 22:34-0400 Heart rate 86 /min Milana Sonny Work Phone: [facility] 10-03-2024 22:34-0400 Respiratory rate 17 /min Milana Sonny Work Phone: [facility] 10-03-2024 22:34-0400 SaO2% (BldA) [Mass fraction] 100 % Milana Sonny Work Phone: [facility] 10-03-2024 22:34-0400 Systolic blood pressure 135 mm[Hg] Milana Sonny Work Phone: [facility] 10-03-2024 22:33-0400 Body height 167.6 cm Milana Sonny Work Phone: [facility] 10-03-2024 22:33-0400 Body mass index (BMI) [Ratio] 24.21 kg/m2 Milana Sonny Work Phone: [facility] 10-03-2024 22:33-0400 Body weight 68.04 kg Milana Sonny Work Phone: [facility] 05-18-2024 14:00-0500 Body temperature 98.6 [degF] Chair [facility] 05-18-2024 14:00-0500 Diastolic blood pressure 71 mm[Hg] Chair [facility] 05-18-2024 14:00-0500 Heart rate 88 /min Chair [facility] 05-18-2024 14:00-0500 Respiratory rate 14 /min [facility] 05-18-2024 14:00-0500 SaO2% (BldA) [Mass fraction] 99 % [facility] 05-18-2024 14:00-0500 Systolic blood pressure 124 mm[Hg] [facility] 05-08-2024 10:32-0500 Body height 167.6 cm Rubén Mercado MD Work Phone: [facility] 05-08-2024 10:32-0500 Body mass index (BMI) [Ratio] 25.7 kg/m2 Rubén Mercado MD Work Phone: [facility] 05-08-2024 10:32-0500 Body temperature 98.8 [degF] Rubén Mercado MD Work Phone: [facility] 05-08-2024 10:32-0500 Body weight 72.2 kg Rubén Mercado MD Work Phone: [facility] 05-08-2024 10:32-0500 Diastolic blood pressure 81 mm[Hg] Rubén Mercado MD Work Phone: [facility] 05-08-2024 10:32-0500 Heart rate 87 /min Rubén Mercado MD Work Phone: [facility] 05-08-2024 10:32-0500 SaO2% (BldA) [Mass fraction] 98 % Rubén Mercado MD Work Phone: [facility] 05-08-2024 10:32-0500 Systolic blood pressure 145 mm[Hg] Rubén Mercado MD Work Phone: [facility] 04-20-2024 14:02-0500 Body temperature 98.49 [degF] [facility] 04-20-2024 14:02-0500 Diastolic blood pressure 64 mm[Hg] [facility] 04-20-2024 14:02-0500 Heart rate 79 /min [facility] 04-20-2024 14:02-0500 Respiratory rate 14 /min [facility] 04-20-2024 14:02-0500 SaO2% (BldA) [Mass fraction] 100 % [facility] 04-20-2024 14:02-0500 Systolic blood pressure 117 mm[Hg] Chair [facility] 03-25-2024 11:42-0400 Body height 167.6 cm Ria Wayne CERTIFIED WELDER - VINYL CUTTER Work Phone: [facility] 03-25-2024 11:42-0400 Body mass index (BMI) [Ratio] 25.18 kg/m2 Ria Wayne CERTIFIED WELDER - VINYL CUTTER Work Phone: [facility] 03-25-2024 11:42-0400 Body temperature 97.9 [degF] Ria Wayne CERTIFIED WELDER - VINYL CUTTER Work Phone: [facility] 03-25-2024 11:42-0400 Body weight 70.76 kg Ria Wayne CERTIFIED WELDER - VINYL CUTTER Work Phone: [facility] 03-25-2024 11:42-0400 Diastolic blood pressure 77 mm[Hg] Ria Wayne CERTIFIED WELDER - VINYL CUTTER Work Phone: [facility] 03-25-2024 11:42-0400 Heart rate 97 /min Ria Wayne CERTIFIED WELDER - VINYL CUTTER Work Phone: [facility] 03-25-2024 11:42-0400 SaO2% (BldA) [Mass fraction] 99 % Ria Wayne CERTIFIED WELDER - VINYL CUTTER Work Phone: [facility] 03-25-2024 11:42-0400 Systolic blood pressure 132 mm[Hg] Ria Wayne CERTIFIED WELDER - VINYL CUTTER Work Phone: [facility] 03-23-2024 13:41-0400 Body mass index (BMI) [Ratio] 25.53 kg/m2 Chair [facility] Work Phone: [facility] 03-23-2024 13:41-0400 Body temperature 98.1 [degF] Chair Bath Work Phone: [facility] 03-23-2024 13:41-0400 Body weight 71.76 kg Chair Bath Work Phone: [facility] 03-23-2024 13:41-0400 Diastolic blood pressure 82 mm[Hg] Chair Bath Work Phone: [facility] 03-23-2024 13:41-0400 Heart rate 79 /min Chair [facility] Work Phone: [facility] 03-23-2024 13:41-0400 Respiratory rate 14 /min Chair [facility] Work Phone: [facility] 03-23-2024 13:41-0400 SaO2% (BldA) [Mass fraction] 100 % Chair [facility] Work Phone: [facility] 03-23-2024 13:41-0400 Systolic blood pressure 144 mm[Hg] Chair Bath Work Phone: [facility] 02-13-2024 16:16-0400 Diastolic blood pressure 68 mm[Hg] Alia Parmar MD Work Phone: [facility] 02-13-2024 16:16-0400 Heart rate 71 /min Alia Parmar MD Work Phone: [facility] 02-13-2024 16:16-0400 Respiratory rate 20 /min Alia Parmar MD Work Phone: [facility] 02-13-2024 16:16-0400 SaO2% (BldA) [Mass fraction] 98 % Alia Parmar MD Work Phone: [facility] 02-13-2024 16:16-0400 Systolic blood pressure 109 mm[Hg] Alia Parmar MD Work Phone: [facility] 02-13-2024 15:47-0400 Body temperature 97.2 [degF] Alia Parmar MD Work Phone: [facility] 02-13-2024 14:13-0400 Body height 167.6 cm Alia Parmar MD Work Phone: [facility] 02-13-2024 14:13-0400 Body mass index (BMI) [Ratio] 25.02 kg/m2 Alia Parmar MD Work Phone: [facility] 02-13-2024 14:13-0400 Body weight 70.31 kg Alia Parmar MD Work Phone: [facility] 12-20-2023 07:53-0400 Body height 167.6 cm Alia Parmar MD Work Phone: [facility] 12-20-2023 07:53-0400 Body mass index (BMI) [Ratio] 25.05 kg/m2 Alia Parmar MD Work Phone: [facility] 12-20-2023 07:53-0400 Body weight 70.4 kg Alia Parmar MD Work Phone: [facility] 12-20-2023 07:53-0400 Diastolic blood pressure 62 mm[Hg] Alia Parmar MD Work Phone: [facility] 12-20-2023 07:53-0400 Systolic blood pressure 114 mm[Hg] Alia Parmar MD Work Phone: [facility] 11-30-2023 12:17-0400 Body height 168 cm Melchor Morrell [facility] 11-30-2023 12:17-0400 Body mass index (BMI) [Ratio] 26 kg/m2 Melchor Morrell [facility] 11-30-2023 12:17-0400 Body temperature 98.96 [degF] Melchor Morrell [facility] 11-30-2023 12:17-0400 Body weight 73 kg Melchor Morrell [facility] 11-30-2023 12:17-0400 Diastolic blood pressure 88 mm[Hg] Melchor Morrell [facility] 11-30-2023 12:17-0400 Heart rate 77 /min Melchor Morrell [facility] 11-30-2023 12:17-0400 Respiratory rate 16 /min Melchor Morrell [facility] 11-30-2023 12:17-0400 SaO2% (BldA) [Mass fraction] 99 % Melchor Morrell [facility] 11-30-2023 12:17-0400 Systolic blood pressure 150 mm[Hg] Melchor Morrell [facility] 10-31-2023 13:41-0400 Body temperature 98.49 [degF] Nikunj Gombash DO Work Phone: [facility] [employer] 10-31-2023 13:41-0400 Diastolic blood pressure 91 mm[Hg] Nikunj Gombash DO Work Phone: [facility] [employer] 10-31-2023 13:41-0400 Heart rate 90 /min Nikunj Gombash DO Work Phone: [facility] [employer] 10-31-2023 13:41-0400 Respiratory rate 16 /min Nikunj Gombash DO Work Phone: [facility] [employer] 10-31-2023 13:41-0400 SaO2% (BldA) [Mass fraction] 99 % Nikunj Gombash DO Work Phone: [facility] [employer] 10-31-2023 13:41-0400 Systolic blood pressure 147 mm[Hg] Nikunj Gombash DO Work Phone: [facility] [employer] 08-02-2023 14:34-0500 Heart rate 103 /min Niles Christopher MD Work Phone: [facility] [employer] 08-02-2023 14:34-0500 SaO2% (BldA) [Mass fraction] 99 % Niles Christopher MD Work Phone: [facility] [employer] 08-02-2023 14:34-0500 Body temperature 97.7 [degF] Niles Christopher MD Work Phone: [facility] [employer] 08-02-2023 14:34-0500 Diastolic blood pressure 92 mm[Hg] Niles Christopher MD Work Phone: [facility] [employer] 08-02-2023 14:34-0500 Respiratory rate 20 /min Niles Christopher MD Work Phone: [facility] [employer] 08-02-2023 14:34-0500 Systolic blood pressure 136 mm[Hg] Niles Christopher MD Work Phone: [facility] [employer] 07-15-2023 20:14-0500 Body temperature 98.4 [degF] Milana Sonny Work Phone: [facility] [employer] 07-15-2023 20:14-0500 Diastolic blood pressure 90 mm[Hg] Milana Sonny Work Phone: [facility] [employer] 07-15-2023 20:14-0500 Heart rate 81 /min Milana Sonny Work Phone: [facility] [employer] 07-15-2023 20:14-0500 Respiratory rate 20 /min Milana Sonny Work Phone: [facility] [employer] 07-15-2023 20:14-0500 SaO2% (BldA) [Mass fraction] 96 % Milana Sonny Work Phone: [facility] [employer] 07-15-2023 20:14-0500 Systolic blood pressure 132 mm[Hg] Milana Sonny Work Phone: [facility] [employer] 05-30-2023 19:33-0500 Body temperature 96.01 [degF] Milana Sonny Work Phone: [facility] [employer] 05-30-2023 19:33-0500 Diastolic blood pressure 76 mm[Hg] Milana Sonny Work Phone: [facility] [employer] 05-30-2023 19:33-0500 Heart rate 74 /min Milana Sonny Work Phone: [facility] 05-30-2023 19:33-0500 Respiratory rate 20 /min Milana Sonny Work Phone: [facility] 05-30-2023 19:33-0500 SaO2% (BldA) [Mass fraction] 99 % Milana Sonny Work Phone: [facility] 05-30-2023 19:33-0500 Systolic blood pressure 112 mm[Hg] Milana Sonny Work Phone: [facility] 11-19-2022 14:14-0400 Body height 167.6 cm Leonie Crooks MD Work Phone: [facility] 11-19-2022 14:14-0400 Body weight 70.31 kg Leonie Crooks MD Work Phone: [facility] 11-19-2022 14:14-0400 Diastolic blood pressure 82 mm[Hg] Leonie Crooks MD Work Phone: [facility] 11-19-2022 14:14-0400 Systolic blood pressure 128 mm[Hg] Leonie Crooks MD Work Phone: [facility] 11-19-2022 10:49-0400 Body weight 70.31 kg Charlette Sanchez CERTIFIED WELDER.CNM Work Phone: [facility] 11-19-2022 10:49-0400 Diastolic blood pressure 82 mm[Hg] Charlette Sanchez CERTIFIED WELDER.CNM Work Phone: [facility] 11-19-2022 10:49-0400 Systolic blood pressure 128 mm[Hg] Charlette Sanchez CERTIFIED WELDER.CNM Work Phone: [facility] 04-26-2022 08:40-0500 Body temperature 97.7 [degF] Dr. Moreno Knott Work Phone: [facility] Work Phone: 04-26-2022 08:40-0500 Diastolic blood pressure 76 mm[Hg] Dr. Moreno Knott Work Phone: [facility] Work Phone: 04-26-2022 08:40-0500 Heart rate 84 /min Dr. Moreno Knott Work Phone: [facility] Work Phone: 04-26-2022 08:40-0500 Respiratory rate 16 /min Dr. Moreno Knott Work Phone: [facility] Work Phone: 04-26-2022 08:40-0500 SaO2% (BldA) [Mass fraction] 96 % Dr. Moreno Knott Work Phone: [facility] Work Phone: 04-26-2022 08:40-0500 Systolic blood pressure 116 mm[Hg] Dr. Moreno Knott Work Phone: [facility] Work Phone: 04-26-2022 06:59-0500 Body height 167.[address] Moreno Knott Work Phone: [facility] Work Phone: 04-26-2022 06:59-0500 Body mass index (BMI) [Ratio] 26.2 kg/m2 Dr. Moreno Knott Work Phone: [facility] Work Phone: 04-26-2022 06:59-0500 Body weight 73.[address] Moreno Knott Work Phone: [facility] Work Phone: 03-26-2022 11:18-0400 Body temperature 97.4 [degF] Dr. Moreno Knott Work Phone: [facility] Work Phone: 03-26-2022 11:18-0400 Body weight 73.[address] Moreno Knott Work Phone: [facility] Work Phone: 03-26-2022 11:18-0400 Diastolic blood pressure 74 mm[Hg] Dr. Moreno Knott Work Phone: [facility] Work Phone: 03-26-2022 11:18-0400 Heart rate 110 /min Dr. Moreno Knott Work Phone: [facility] Work Phone: 03-26-2022 11:18-0400 Respiratory rate 16 /min Dr. Moreno Knott Work Phone: [facility] Work Phone: 03-26-2022 11:18-0400 SaO2% (BldA) [Mass fraction] 96 % Dr. Moreno Knott Work Phone: [facility] Work Phone: 03-26-2022 11:18-0400 Systolic blood pressure 120 mm[Hg] Dr. Moreno Knott Work Phone: [facility] Work Phone: 03-12-2022 11:31-0400 Body weight 74.[address] Moreno Knott Work Phone: [facility] Work Phone: 03-09-2022 08:12-0400 Body weight 74.38 kg [facility] Work Phone: 03-05-2022 09:18-0400 Body height 167.64 cm [facility] Work Phone: 09-23-2021 15:28-0400 Body height 167.[address] Moreno Knott Work Phone: [facility] Work Phone: 09-23-2021 15:28-0400 Body mass index (BMI) [Ratio] 25.4 kg/m2 Dr. Moreno Knott Work Phone: [facility] Work Phone: 09-23-2021 15:28-0400 Body temperature 98.1 [degF] Dr. Moreno Knott Work Phone: [facility] Work Phone: 09-23-2021 15:28-0400 Body weight 71.[address] Moreno Knott Work Phone: [facility] Work Phone: 09-23-2021 15:28-0400 Diastolic blood pressure 76 mm[Hg] Dr. Moreno Knott Work Phone: [facility] Work Phone: 09-23-2021 15:28-0400 Heart rate 99 /min Dr. Moreno Knott Work Phone: [facility] Work Phone: 09-23-2021 15:28-0400 Respiratory rate 16 /min Dr. Moreno Knott Work Phone: [facility] Work Phone: 09-23-2021 15:28-0400 SaO2% (BldA) [Mass fraction] 99 % Dr. Moreno Knott Work Phone: [facility] Work Phone: 09-23-2021 15:28-0400 Systolic blood pressure 110 mm[Hg] Dr. Moreno Knott Work Phone: [facility] Work Phone: 08-03-2021 08:25-0500 Body height 167.[address] Moreno Knott Work Phone: [facility] Work Phone: 08-03-2021 08:25-0500 Body mass index (BMI) [Ratio] 25.2 kg/m2 Dr. Moreno Knott Work Phone: [facility] Work Phone: 08-03-2021 08:25-0500 Body weight 70.[address] Moreno Knott Work Phone: [facility] Work Phone: 07-13-2021 08:05-0500 Body mass index (BMI) [Ratio] 25.8 kg/m2 Dr. Moreno Knott Work Phone: [facility] Work Phone: 07-13-2021 08:05-0500 Body temperature 97.1 [degF] Dr. Moreno Knott Work Phone: [facility] Work Phone: 07-13-2021 08:05-0500 Body weight 72.[address] Moreno Knott Work Phone: [facility] Work Phone: 07-13-2021 08:05-0500 Diastolic blood pressure 78 mm[Hg] Dr. Moreno Knott Work Phone: [facility] Work Phone: 07-13-2021 08:05-0500 Heart rate 74 /min Dr. Moreno Knott Work Phone: [facility] Work Phone: 07-13-2021 08:05-0500 Respiratory rate 16 /min Dr. Moreno Knott Work Phone: [facility] Work Phone: 07-13-2021 08:05-0500 SaO2% (BldA) [Mass fraction] 98 % Dr. Moreno Knott Work Phone: [facility] Work Phone: 07-13-2021 08:05-0500 Systolic blood pressure 122 mm[Hg] Dr. Moreno Knott Work Phone: [facility] Work Phone: 04-21-2021 17:45-0500 SaO2% (BldA) [Mass fraction] 97 % Gwen Beulah DO Work Phone: [facility] 04-21-2021 15:16-0500 Body temperature 97.5 [degF] Gwen Beulah DO Work Phone: [facility] 04-21-2021 15:16-0500 Diastolic blood pressure 83 mm[Hg] Gwen Beulah DO Work Phone: [facility] 04-21-2021 15:16-0500 Heart rate 101 /min Gwen Beulah DO Work Phone: [facility] 04-21-2021 15:16-0500 Respiratory rate 16 /min Gwen Beulah DO Work Phone: [facility] 04-21-2021 15:16-0500 Systolic blood pressure 135 mm[Hg] Gwen Beulah DO Work Phone: [facility] 04-19-2021 18:28-0500 Body height 167.6 cm Gwen Beulah DO Work Phone: [facility] 04-19-2021 18:28-0500 Body mass index (BMI) [Ratio] 24.21 kg/m2 Gwen Beulah DO Work Phone: [facility] 04-19-2021 18:28-0500 Body weight 68.04 kg [facility] NE[facility]: Highlighted [id number] 08:00-0400 Body height 171.45 cm Liz Major AT [facility] Work Phone: NEGATED: Highlighted [id number] 08:00-0400 Body height 171 cm Liz Major AT [facility] Work Phone: NEGATED: Highlighted [id number] 08:00-0400 Body mass index (BMI) [Ratio] 24.47 kg/m2 Liz Vasquezos AT [facility] Work Phone: NEGATED: Highlighted [id number] 08:00-0400 Body weight 71.67 kg Liz Vasquezos AT [facility] Work Phone: NEGATED: Highlighted [id number] 08:00-0400 Body weight 72 kg Liz Vasquezos AT [facility] Work Phone: Encounters Encounter Date Encounter Type Care Provider Facility Start: 03-25-2025 ambulatory Milana Acosta Sonny Facil ity:[facility] Start: 03-21-2025 ambulatory MILANA L SONNY Facili ty:[facility] Start: 03-01-2025 End: 03-01-2025 ambulatory ALIA PARMAR Facility:[facility] Start: 03-01-2025 ambulatory MLIANA L SONNY Facili ty:[facility] Start: 01-31-2025 End: 01-31-2025 Admission to same day surgery center Alia Parmar MD Work Phone: Ambulatory Surgery Start: 01-31-2025 End: 01-31-2025 ambulatory Alia Parmar MD Work Phone: Ambulatory Surgery Start: 01-28-2025 End: 01-28-2025 Office outpatient new 30 minutes Annika BLEVINS Work Phone: [facility] Comment on above: Non-recurrent acute suppurative otitis media of both ears without spontaneous rupture of tympanic membranes (Primary Dx); Eustachian tube dysfunction, bilateral; PND (post-nasal drip); Acute cough; Nasal sinus congestion; Viral sore throat Start: 01-28-2025 End: 01-29-2025 ambulatory Alia Parmar MD Work Phone: [facility] Comment on above: Sick Start: 01-24-2025 End: 01-24-2025 Orders Only Alia Parmar MD Work Phone: Ambulatory Surgery Start: 01-04-2025 End: 01-04-2025 Telemedicine consultation with [facility] Start: 01-04-2025 End: 01-04-2025 ambulatory Alia Parmar MD Work Phone: [facility] Comment on above: Crohn's disease of l arge intestine without complication (HCC) (Primary Dx); Family history of hypercoagulable state; History of pulmonary embolus during ; Liver hemangioma; History of deep vein thrombosis; Dilation of pancreatic duct (HCC) Start: 12-05-2024 End: 12-05-2024 Orders Only Alia Parmar MD Work Phone: [facility] Comment on above: Crohn's disease of l arge intestine without complication (HCC) (Primary Dx) Start: 11-14-2024 End: 11-14-2024 Emergency department patient visit MILANA GRACE Facility:[facility] Start: 11-14-2024 End: 11-14-2024 Patient encounter procedure Liz Avery PA-C Work Phone: [facility] Comment on above: Crohn's disease of l arge intestine without complication (HCC) (Primary Dx); Numbness Start: 11-14-2024 End: 11-14-2024 ambulatory LIZ AVERY Facility:[facility] Start: 11-11-2024 End: 11-12-2024 Emergency department patient visit MILANA GRACE Facility:[facility] Start: 11-07-2024 End: 11-07-2024 Refill Alia Parmar MD Work Phone: [facility] [place] Comment on above: Refill Request Start: 10-03-2024 End: 10-03-2024 Emergency department patient visit MILANA GRACE [facility] Comment on above: Hematoma and contusi on (Primary Dx) Start: 07-13-2024 End: 07-13-2024 Telephone encounter Alia Parmar MD Work Phone: [facility] [place] Comment on above: Results Start: 07-12-2024 End: 07-12-2024 ambulatory MILANA GRACE Facility:[facility] Start: 06-24-2024 End: 06-24-2024 Telephone encounter Rubén Mercado MD Work Phone: [facility] Hematology/Oncology Start: 05-29-2024 End: 06-04-2024 Refill Alia Parmar MD Work Phone: [facility] Comment on above: Refill Request Start: 05-21-2024 End: 05-21-2024 ambulatory [facility] Start: 05-21-2024 End: 05-21-2024 Patient encounter procedure [facility] Comment on above: SPP Inflammatory Con ditions - Treatment Referral ([place] [facility]); [place] Authorization ([place] Submission Pending) Start: 05-18-2024 End: 05-18-2024 Patient encounter procedure Chair [facility] Comment on above: Crohn's disease of l arge intestine without complication (HCC) (Primary Dx) Start: 05-18-2024 End: 05-21-2024 ambulatory Chair 3 [facility] Start: 05-11-2024 End: 05-11-2024 ambulatory RUBÉN MECRADO Facility[facility] Start: 05-08-2024 End: 05-08-2024 Patient encounter procedure Rubén Mecrado MD Work Phone: [facility] Comment on above: History of pulmonary embolus during ; Family history of hypercoagulable state Start: 05-08-2024 End: 05-08-2024 ambulatory RUBÉN MERCADO Facility[facility] Start: 05-04-2024 End: 05-28-2024 ambulatory Alia Parmar MD Work Phone: [facility] [place] Comment on above: [place] Start: 05-04-2024 End: 05-28-2024 E-mail encounter from caregiver Alia Parmar MD Work Phone: [facility] [place] Start: 04-20-2024 End: 04-20-2024 Patient encounter procedure Chair [facility] [place] Comment on above: Crohn's disease of l arge intestine without complication (HCC) (Primary Dx) Start: 04-20-2024 End: 04-23-2024 ambulatory Chair 2 Infusion [facility] Start: 04-17-2024 End: 04-17-2024 [facility] Start: 04-09-2024 End: 04-09-2024 Telephone encounter Alia Parmar MD Work Phone: Gastroenterology [place] Comment on above: Patient Update Start: 03-26-2024 End: 03-26-2024 ambulatory Juaquin Rod Facility:[facility] Start: 03-25-2024 End: 03-25-2024 Office outpatient visit 15 minutes Ria Wayne CERTIFIED WELDER - VINYL CUTTER Work Phone: [facility] Comment on above: Viral pharyngitis (P rimary Dx); Sore throat Start: 03-25-2024 End: 03-25-2024 ambulatory [facility] Start: 03-23-2024 End: 03-23-2024 ambulatory Chair 9 [facility] Work Phone: Hematology/Oncology Comment on above: Crohn's disease of l arge intestine without complication (HCC) (Primary Dx); Crohn's disease of colon without complication (HCC); History of pulmonary embolus during ; Family history of hypercoagulable state Start: 03-20-2024 End: 03-20-2024 ambulatory [facility] Comment on above: FMLA Start: 03-20-2024 End: 03-20-2024 E-mail encounter from caregiver Alia Parmar MD Work Phone: Gastroenterology [place] Start: 03-16-2024 End: 03-16-2024 ambulatory Alia Parmar MD Work Phone: Gastroenterology [place] Comment on above: Crohn's disease of c olon without complication (HCC) (Primary Dx); History of pulmonary embolus during ; Family history of hypercoagulable state Start: 03-16-2024 End: 03-16-2024 Telemedicine consultation with patient Alia Parmar MD Work Phone: Gastroenterology [place] Start: 03-07-2024 End: 03-07-2024 Telephone encounter Alia Parmar MD Work Phone: Gastroenterology [place] Comment on above: Medication Authoriza tion Start: 03-02-2024 End: 03-02-2024 Encounter for antibody response examination JOHN ALEXANDER [facility] [employer] [facility] Start: 03-02-2024 End: 06-01-2024 Immune system finding John Alexander DO Work Phone: [facility] [employer] Start: 03-02-2024 End: 06-01-2024 Transcribe Orders John Alexander DO Work Phone: [facility] Comment on above: Encounter for antibo dy response examination (Primary Dx) Start: 02-13-2024 End: 02-13-2024 Telephone encounter Alia Parmar MD Work Phone: Ambulatory Surgery Start: 02-13-2024 End: 02-13-2024 Subsequent hospital visit by physician Alia Parmar MD Work Phone: Ambulatory Surgery Comment on above: Ulcerative colitis w ithout complications, unspecified location (HCC) [K51.90] Start: 01-06-2024 Telephone encounter Alia Parmar MD Work Phone: Gastroenterology [place] Start: 01-03-2024 ambulatory ALIA PARMAR [facility] Start: 01-03-2024 End: 01-03-2024 Subsequent hospital visit by physician [facility] Comment on above: oral contrast Start: 12-28-2023 Telephone encounter Alia Parmar MD Work Phone: [facility] Start: 12-23-2023 Telephone encounter Alia Parmar MD Work Phone: Gastroenterology [place] Start: 12-21-2023 End: 12-21-2023 ambulatory MILANA GRACE Facility[facility] Start: 12-20-2023 End: 12-20-2023 Office outpatient new 30 minutes Alia Parmar MD Work Phone: Gastroenterology [place] Comment on above: Ulcerative colitis w ithout complications, unspecified location (HCC) (Primary Dx); Skin rash; Nausea and vomiting, unspecified vomiting type; Vitamin D deficiency; Right lower quadrant abdominal pain Start: 11-30-2023 Melchor Morrell [facility] Start: 10-31-2023 End: 10-31-2023 Emergency department patient visit Nikunj A Beth SINGH Work Phone: [facility] ED Comment on above: Constipation, unspec ified constipation type (Primary Dx); Right lower quadrant abdominal pain; History of ulcerative colitis Start: 08-13-2023 Refill Leonie Crooks MD Work Phone: URO/Gynecology Comment on above: Refill Request Start: 08-02-2023 End: 08-02-2023 Emergency department patient visit Niles Christopher MD Work Phone: [facility] ED Comment on above: Upper respiratory tr act infection, unspecified type (Primary Dx) Start: 08-02-2023 End: 08-02-2023 Subsequent hospital visit by physician Sb Ecg [facility] Non-Invasive Cardiology Comment on above: Arrived Start: 07-18-2023 End: 07-18-2023 Subsequent hospital visit by physician Xr [facility] Start: 07-15-2023 End: 07-15-2023 Emergency department patient visit Milana Grace Work Phone: [facility] ED Comment on above: Foot pain, left (Priscilla mauro Dx) Start: 05-30-2023 End: 05-30-2023 Emergency department patient visit Milana Grace Work Phone: [facility] ED Comment on above: Urinary tract infect ion in female (Primary Dx) Start: 02-01-2023 Chart abstracting Santy scott MD Work Phone: [facility] Comment on above: Polysomnogram Start: 01-28-2023 End: 01-28-2023 Subsequent hospital visit by physician Milana Grace Work Phone: [facility] Comment on above: Low back pain, unspe cified; Cervicalgia Nontoxic single thyr oid nodule Cervicalgia (Primary Dx); Low back pain, unspecified Start: 12-30-2022 Transcribe Orders Olga Sanchez CERTIFIED WELDER - VINYL CUTTER Work Phone: [facility] Central Scheduling Comment on above: Nontoxic single thyr oid nodule (Primary Dx) Start: 12-24-2022 Transcribe Orders Olga Wuvo CERTIFIED WELDER - VINYL CUTTER Work Phone: [facility] Laboratory Comment on above: Nontoxic single thyr oid nodule (Primary Dx) Start: 11-19-2022 End: 11-19-2022 Patient encounter procedure Charlette Sanchez APRN.CNM Work Phone: OB/Gynecology Comment on above: Dyspareunia, female (Primary Dx); Recurrent UTI; Cystocele, midline Recurrent UTI (Prima ry Dx); Dyspareunia, female; Mixed stress and urge urinary incontinence; Vaginismus; Postmenopausal atrophic vaginitis Start: 11-05-2022 End: 11-05-2022 ambulatory [facility] Work Phone: Start: 11-05-2022 End: 11-05-2022 Patient encounter procedure [facility]-Outpatient Breast Imaging Start: 09-20-2022 End: 09-20-2022 ambulatory MORENO KNOTT [facility]:[id number] Start: 06-11-2022 Telephone encounter Elvia Carter Clinical Communication Comment on above: Hospital Follow-up Start: 04-26-2022 End: 04-26-2022 Admission to same day surgery center Dr. Moreno Knott Work Phone: [facility]-Surgical Day Care Start: 04-26-2022 End: 04-26-[address] Moreno Knott Work Phone: [facility] Work Phone: Start: 03-26-2022 End: 03-26-[address] Moreno Knott Work Phone: [facility] Work Phone: Start: 03-26-2022 End: 03-26-[address] Moreno Knott Work Phone: [facility] Start: 03-05-2022 End: 03-05-2022 ambulatory [facility] Work Phone: Start: 03-05-2022 End: 03-05-2022 Discharged Recurring [facility]-Occupational Therapy Start: 11-13-2021 End: 11-13-2021 Subsequent hospital visit by physician Valentine Montoya Work Phone: [facility] Comment on above: K50.90 Start: 10-02-2021 End: 10-02-[address] Moreno Knott Work Phone: [facility]-Laboratory, Specimen Start: 09-23-2021 End: 09-23-[address] Moreno Knott Work Phone: [facility] Internal Medicine Start: 08-24-2021 End: 08-24-[address] Moreno Knott Work Phone: [facility] Orthopaedic Specia Start: 08-21-2021 End: 08-21-[address] Moreno Knott Work Phone: [facility]-MRI - [facility] Start: 08-03-2021 End: 08-03-[address] Moreno Knott Work Phone: [facility] Start: 07-17-2021 End: 07-17-[address] Moreno Knott Work Phone: [facility]-Radiology, [place] Start: 07-13-2021 End: 07-13-[address] 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); Ulcerative colitis with complication, unspecified location (HCC); Pneumonia due to COVID-19 virus Start: 03-06-2020 End: 03-07-2020 Patient encounter procedure [facility] Start: 03-06-2020 End: 03-06-2020 Subsequent hospital visit by physician [facility] 3 [facility] Comment on above: Abdominal distention Start: 12-23-2016 End: 12-28-2016 Evaluation and management of inpatient RICKI GRACE Facility:[facility] Start: 12-13-2016 End: 12-14-2016 Ambulatory DEFAULT PHYSICIAN Facility:[facility] Procedures Date Procedure Procedure Detail Performing Clinician Start: 01-28-2025 Iadna respiratry pro be & rev trnscr 3-5 targets Annika Higgins CERTIFIED WELDER-VINYL CUTTER Work Phone: Start: 01-28-2025 SARS-CoV-2 (COVID-19 ) Ag [Presence] in Respiratory specimen by Rapid immunoassay Annika Higgins CERTIFIED WELDER-VINYL CUTTER Work Phone: Start: 10-03-2024 Radex hip unilateral with pelvis 2-3 views Keri Donya Carly ANDERSONC Work Phone: Start: 03-25-2024 Iadna streptococcus group a amplified probe tq Ria Wayne CERTIFIED WELDER - [employer]INYL CUTTER Work Phone: Start: 03-23-2024 Blood count complete auto&auto difrntl wbc Alia Parmar MD Work Phone: Start: 02-13-2024 Esophagogastroduoden oscopy transoral diagnostic Aila Parmar MD Work Phone: Start: 02-13-2024 Colonoscopy flx dx w /collj spec when pfrmd Alia Parmar MD Work Phone: Start: 02-13-2024 Colonoscopy Alia Parmar MD Work Phone: Start: 10-31-2023 Ct abdomen & pelvis w/contrast material Ifeoma MCCARTY[employer] Work Phone: Start: 10-31-2023 Urinalysis complete panel - Urine Ifeoma [employer] Work Phone: Start: 10-31-2023 Urnls dip stick/tabl et rgnt auto w/o microscopy Ifoema [employer] Work Phone: Start: 10-31-2023 Comprehensive metabolic panel Ifeoma [employer] Work Phone: Start: 08-02-2023 Iadna streptococcus group a amplified probe tq Niles Christopher MD Work Phone: Start: 08-02-2023 SARS-COV-2, FLU A/B, AND RSV COMBO Niles Christopher MD Work Phone: Start: 08-02-2023 Radiologic exam chest single view Niles Christopher MD Work Phone: Start: 08-02-2023 Ecg routine ecg w/le ast 12 lds trcg only w/o i&r Niles Christopher MD Work Phone: Start: 07-18-2023 Radex spine thoracic 2 views [facility] Provider Start: 07-15-2023 Radex foot complete minimum 3 views Xin Bai PA-C Work Phone: Start: 05-30-2023 Urinalysis complete panel - Urine Chyna MCCARTY-C Work Phone: Start: 05-30-2023 Urnls dip stick/tabl et reagent auto microscopy Chyna MCCARTY-C Work Phone: Start: 12-24-2022 Assay of free thyroxine Olga Sanchez CERTIFIED WELDER - [employer]IN[employer] CUTTER Work Phone: Start: 11-19-2022 Urnls dip stick/tabl et rgnt auto w/o microscopy Leonie Crooks MD Work Phone: Start: 11-19-2022 BLADDER SCAN Leonie boss MD Work Phone: Start: 11-05-2022 End: 11-05-2022 Screening mammography Start: 09-24-2022 Lipid 1996 panel - S kellie or Plasma Xr Hosp Start: 04-26-[address] Moreno Knott Work Phone: Start: 10-02-[address] Deanne Knott Work Phone: Start: 09-23-[address] Deanne Knott Work Phone: Start: 09-04-2021 End: 09-05-2021 BP scrn no perf at interval Sarai wilder MD Work Phone: Start: 09-04-2021 End: 09-05-2021 Current tobacco non-user cad cap copd pv dm Sarai Beal MD Work Phone: Start: 09-04-2021 End: 09-05-2021 Docrev cur meds by harris zelaya MD Work Phone: Start: 09-04-2021 End: 09-05-2021 Pain doc pos and plan Sarai Beal MD Work Phone: Start: 09-04-2021 End: 09-05-2021 Patient encounter procedure Sarai wilder MD Work Phone: Start: 09-04-2021 End: 09-04-2021 Radex shoulder complete minimum 2 views Sarai Beal MD Work Phone: Start: 08-21-2021 MRI of pelvis with contrast Dr. Moreno Knott Work Phone: Start: 07-17-2021 Plain x-ray of pelvi s and lower extremity Dr. Moreno Knott Work Phone: Start: 04-21-2021 HOME O2 EVAL (DESATU RATION SCREEN) Klever Dukes DO Work Phone: Start: 04-21-2021 Assay of ferritin Kavon Dukes DO Work Phone: Start: 04-21-2021 C-reactive protein Heather Dukes DO Work Phone: Start: 04-20-2021 C-reactive protein Taqueria Watson MD Work Phone: Start: 04-20-2021 Fibrin dgradj produc ts d-dimer quantitative Tamar Watson MD Work Phone: Start: 04-19-2021 ADD ON LAB TEST Tamar Watson MD Work Phone: Start: 04-19-2021 Iaad ia mult step me thod nos each organism Tamar Truong CERTIFIED WELDER - [employer]INYL CUTTER Work Phone: Start: 04-19-2021 STREP PNEUMONIAE ANTIGEN Tamar Truong CERTIFIED WELDER - [employer]YL CUTTER Work Phone: Start: 04-19-2021 Urnls dip stick/tabl et rgnt auto w/o microscopy Tamar Truong CERTIFIED WELDER - VINYL CUTTER Work Phone: Start: 04-19-2021 Ecg routine ecg w/le ast 12 lds w/i&r Tamar Truong APRN - VINYL CUTTER Work Phone: Start: 04-19-2021 Comprehensive metabolic panel Tamar Truong APRN [facility] Work Phone: Start: 04-19-2021 Computed tomography of abdomen and pelvis with contrast Tamar Root [facility] Work Phone: Start: 04-19-2021 Ct angiography chest w/contrast/noncontrast Tamar Truong APRN [employer] Work Phone: Start: 03-06-2020 Dup-scan artl jose abdl/pel/scrot&/rpr orgn lmt [facility] Start: 03-06-2020 Us abdominal real ti me w/image limited [facility] Start: 03-06-2020 Blood count complete auto&auto difrntl wbc [facility] Start: 03-06-2020 Comprehensive metabolic panel [facility] Start: 03-06-2020 Sedimentation rate rbc automated [facility] Start: 03-06-2020 Dup-scan artl jose abdl/pel/scrot&/rpr orgn t [facility] Work Phone: Start: 03-06-2020 Us abdominal real ti me w/image limited [facility] Work Phone: Start: 03-06-2020 Blood count complete auto&auto difrntl wbc [facility] Work Phone: Start: 03-06-2020 Comprehensive metabolic panel [facility] Work Phone: Start: 03-06-2020 Sedimentation rate rbc automated [facility] Work Phone: Start: 05-10-2019 Mammography Charlette P lotts CERTIFIED WELDER.CNM Work Phone: Start: 04-08-2018 Colonoscopy Charlette P lotts CERTIFIED WELDER.CNM Work Phone: Start: 12-23-2016 EXCISION OF RIGHT NE CK LYMPHATIC, OPEN APPROACH, DIAGNOSTIC RICKI GRACE Start: 12-23-2016 MEASURE OF ARTERIAL SATURATION, PERIPHERAL, PERC APPROACH RICKI GRACE Start: 12-23-2016 RESECTION OF RIGHT R IB, OPEN APPROACH RICKI GRACE Start: 12-23-2016 ROBOTIC ASSISTED PRO CEDURE OF TRUNK REGION, OPEN APPROACH RICKI GRACE H/O: hysterectomy History of hysterectomy Dr. Moreno Knott Work Phone: NEGATED: Highlighted rowStart: 09-04-2021 End: 09-04-2021 Documentation of current medications Liz Major AT Plan of Treatment Date Care Activity Detail Author Start: 2047 RSV Immunization for Adults (1 - 1-dose 75+ series) RSV Immunization for Adults (1 - 1-dose 75+ series) [facility] Start: 02-12-2034 Screening for malignant neoplasm of colon [facility] Start: 2032 RSV Immunization aged 60 or older (1 - 1-dose 60+ series) RSV Immunization aged 60 or older (1 - 1-dose 60+ series) [facility] Start: 04-08-2028 Colonoscopy COLONOSCOPY [facility] Start: 04-08-2028 COLORECTAL CANCER SCREENING COLORECTAL CANCER SCREENING [facility] Start: 04-08-2028 Screening for malignant neoplasm of colon [facility] Start: 12-06-2027 Urine microalbumin profile [facility] Start: 11-15-2027 Diabetes Screening Diabetes Screening [facility] Start: 09-25-2027 Lipid panel Lipid Screening [facility] Start: 09-25-2027 LIPID SCREEN LIPID SCREEN [facility] Start: 07-12-2027 Diabetes Screening Diabetes Screening [facility] Start: 03-23-2027 Diabetes Screening Diabetes Screening [facility] Start: 12-20-2026 Diabetes Screening Diabetes Screening [facility] Start: 10-30-2026 Diabetes Screening Diabetes Screening [facility] Start: 07-01-2026 Diabetes Screening Diabetes Screening [facility] Start: 11-20-2025 DIABETES SCREEN DIABETES SCREEN [facility] Start: 09-23-2025 DIABETES SCREEN DIABETES SCREEN [facility] Start: 02-07-2025 End: 02-07-2025 Patient encounter procedure 02/07/2025 8:00 AM EDT Appointment Ambulatory Surgery [address] [place] [address] Alia Parmar MD [address] [place] [place] [address] Crohn's disease of large intestine without complication (HCC) [K50.10] Ambulatory Surgery Comment on above: Crohn's disease of large intestine witho ut complication (HCC) [K50.10] Start: 02-04-2025 Influenza vaccination [facility] Start: 01-18-2025 End: 01-18-2025 Anesthesia consultation 01/18/2025 11:59 PM EDT Anesthesia Event Ambulatory Surgery [address] [address] Jessica Sellers APRN.AGRICULTURE RESEARCH DIRECTOR [id number] [place] [address] Ambulatory Surgery Start: 01-04-2025 End: 04-05-2025 C reactive protein [Mass/volume] in Serum or Plasma C-REACTIVE PROTEIN Lab Routine Crohn's disease of large intestine without complication (HCC) Expected: 01/04/2025, Expires: 04/05/2025 [facility] Comment on above: Expected: 01/04/2025, Expires: Start: 01-04-2025 End: 04-05-2025 Calcitriol [Mass/volume] in Serum or Plasma VITAMIN D1 25-DIHYDR Lab Routine Crohn's disease of large intestine without complication (HCC) Expected: 01/04/2025, Expires: 04/05/2025 [facility] Comment on above: Expected: 01/04/2025, Expires: Start: 01-04-2025 End: 04-05-2025 CBC W Auto Differential panel - Blood COMPLETE BLOOD COUNT AND DIFFERENTIAL Lab Routine Crohn's disease of large intestine without complication (HCC) Expected: 01/04/2025, Expires: 04/05/2025 [facility] Work Phone: Comment on above: Expected: 01/04/2025, Expires: Start: 01-04-2025 End: 04-05-2025 Cobalamin (Vitamin B12) [Mass/volume] in Serum or Plasma VITAMIN B12 Lab Routine Crohn's disease of large intestine without complication (HCC) Expected: 01/04/2025, Expires: 04/05/2025 [facility] Comment on above: Expected: 01/04/2025, Expires: Start: 01-04-2025 End: 04-05-2025 Comprehensive metabolic 2000 panel - Serum or Plasma COMPREHENSIVE METABOLIC PANEL Lab Routine Crohn's disease of large intestine without complication (HCC) Expected: 01/04/2025, Expires: 04/05/2025 [facility] Comment on above: Expected: 01/04/2025, Expires: Start: 01-04-2025 End: 04-05-2025 Ferritin [Mass/volume] in Serum or Plasma FERRITIN Lab Routine Crohn's disease of large intestine without complication (HCC) Expected: 01/04/2025, Expires: 04/05/2025 [facility] Comment on above: Expected: 01/04/2025, Expires: Start: 01-04-2025 End: 04-05-2025 IGG SUBCLASS 1,2,3,4 IGG SUBCLASS 1,2,3,4 Lab Routine Crohn's disease of large intestine without complication (HCC) Dilation of pancreatic duct (HCC) Expected: 01/04/2025, Expires: 04/05/2025 [facility] Comment on above: Expected: 01/04/2025, Expires: Start: 01-04-2025 End: 04-05-2025 Iron and Iron binding capacity panel - Serum or Plasma IRON AND TIBC Lab Routine Crohn's disease of large intestine without complication (HCC) Expected: 01/04/2025, Expires: 04/05/2025 [facility] Comment on above: Expected: 01/04/2025, Expires: Start: 01-04-2025 End: 04-05-2025 Lipase [Enzymatic activity/volume] in Serum or Plasma LIPASE Lab Routine Crohn's disease of large intestine without complication (HCC) Dilation of pancreatic duct (HCC) Expected: 01/04/2025, Expires: 04/05/2025 [facility] Comment on above: Expected: 01/04/2025, Expires: Start: 01-04-2025 End: 04-05-2025 Triglyceride [Mass/volume] in Serum or Plasma TRIGLYCERIDES Lab Routine Crohn's disease of large intestine without complication (HCC) Dilation of pancreatic duct (HCC) Expected: 01/04/2025, Expires: 04/05/2025 [facility] Comment on above: Expected: 01/04/2025, Expires: Start: 01-04-2025 End: 01-04-2025 Follow-up encounter 01/04/2025 9:00 AM T [facility] Gastroenterology [place] [address] [address] Alia Parmar MD [address] [address] Follow Up Gastroenterology [place] Comment on above: Follow Up Start: 09-28-2024 Hepatitis B Vaccine (3 of 3 - 19+ 3-dose series) Hepatitis B Vaccine (3 of 3 - 19+ 3-dose series) [facility] Start: 06-22-2024 End: 09-21-2024 C reactive protein [Mass/volume] in Serum or Plasma C-REACTIVE PROTEIN Lab Routine Crohn's disease of colon without complication (HCC) History of pulmonary embolus during Family history of hypercoagulable state Expected: 06/22/2024, Expires: 09/21/2024 [facility] Comment on above: Expected: 06/22/2024, Expires: Start: 06-22-2024 End: 09-21-2024 CBC W Auto Differential panel - Blood COMPLETE BLOOD COUNT AND DIFFERENTIAL Lab Routine Crohn's disease of colon without complication (HCC) History of pulmonary embolus during Family history of hypercoagulable state Expected: 06/22/2024, Expires: 09/21/2024 [facility] Comment on above: Expected: 06/22/2024, Expires: Start: 06-22-2024 End: 09-21-2024 Comprehensive metabolic 2000 panel - Serum or Plasma COMPREHENSIVE METABOLIC PANEL Lab Routine Crohn's disease of colon without complication (HCC) Expected: 06/22/2024, Expires: 09/21/2024 [facility] Comment on above: Expected: 06/22/2024, Expires: Start: 06-08-2024 Hepatitis B Vaccines (2 of 3 - 19+ 3-dose series) Hepatitis B Vaccines (2 of 3 - 19+ 3-dose series) [facility] Start: 05-23-2024 End: 05-23-2024 ambulatory 05/23/2024 4:20 PM [facility] Hematology/Oncology [address] [place], [place] [id number] Rubén Mercado MD [address] [place] [address] 10day results of labs [facility] Hematology/Oncology Comment on above: 10day results of labs Start: 05-18-2024 End: 05-18-2024 ambulatory 05/18/2024 2:00 PM EST Infusion Center Hematology/Oncology [address] [place] [address] *skyrizi QM x 3 Hematology/Oncology Comment on above: *skyrizi QM x 3 Start: 05-18-2024 End: 05-18-2024 Patient encounter procedure 05/18/2024 2:00 PM EST Infusion Center [facility] Infusion Center [address] [place] [address] *skyrizi QM x 3 [facility] Infusion Center Comment on above: *skyrizi QM x 3 Start: 05-08-2024 End: 05-08-2024 Patient encounter procedure 05/08/2024 10:40 AM EST Visit (SP) Office [facility] Hematology and Oncology [address] [place] [address] Rubén Mercado MD [address] [place] [address] History of pulmonary embolus during ,Family history of hypercoagulable state.Please evaluate for hypercoagulable state/ [facility]ology [facility] On[facility] Comment on above: History of pulmonary embolus during preg amna,Family history of hypercoagulable state.Please evaluate for hypercoagulable state/ Start: 04-27-2024 Hepatitis B Vaccine (2 of 3 - 19+ 3-dose series) Hepatitis B Vaccine (2 of 3 - 19+ 3-dose series) [facility] Start: 04-23-2024 End: 07-23-2024 C reactive protein [Mass/volume] in Serum or Plasma C-REACTIVE PROTEIN Lab Routine Crohn's disease of colon without complication (HCC) History of pulmonary embolus during Family history of hypercoagulable state Expected: 04/23/2024, Expires: 07/23/2024 [facility] Comment on above: Expected: 04/23/2024, Expires: Start: 04-23-2024 End: 07-23-2024 Comprehensive metabolic 2000 panel - Serum or Plasma COMPREHENSIVE METABOLIC PANEL Lab Routine Crohn's disease of colon without complication (HCC) History of pulmonary embolus during Family history of hypercoagulable state Expected: 04/23/2024, Expires: 07/23/2024 [facility] Comment on above: Expected: 04/23/2024, Expires: Start: 04-20-2024 End: 04-20-2024 Patient encounter procedure 04/20/2024 2:00 PM [facility] [address] [place] [id number] *skyrizi QM x 3 [facility] Comment on above: *skyrizi QM x 3 Start: 04-16-2024 End: 07-16-2024 C reactive protein [Mass/volume] in Serum or Plasma C-REACTIVE PROTEIN Lab Routine Crohn's disease of large intestine without complication (HCC) Expected: 04/16/2024, Expires: 07/16/2024 [facility] Comment on above: Expected: 04/16/2024, Expires: 5 Start: 04-16-2024 End: 07-16-2024 CBC W Auto Differential panel - Blood COMPLETE BLOOD COUNT AND DIFFERENTIAL Lab Routine Crohn's disease of large intestine without complication (HCC) Expected: 04/16/2024, Expires: 07/16/2024 [facility] Work Phone: Comment on above: Expected: 04/16/2024, Expires: 5 Start: 04-16-2024 End: 04-16-2024 Comprehensive metabolic 2000 panel - Serum or Plasma COMPREHENSIVE METABOLIC PANEL Lab Routine Crohn's disease of large intestine without complication (HCC) Expected: 04/16/2024, Expires: 04/16/2024 [facility] Comment on above: Expected: 04/16/2024, Expires: 4 Start: 03-23-2024 End: 03-23-2024 ambulatory 03/23/2024 2:00 PM EDT [facility] Hematology/Oncology [address] [place], [place] [id number] *1st tx - skyrizi QM x 3 Hematology/Oncology Comment on above: *1st tx - skyrizi QM x 3 Start: 03-23-2024 End: 06-22-2024 CBC W Auto Differential panel - Blood COMPLETE BLOOD COUNT AND DIFFERENTIAL Lab Routine Crohn's disease of colon without complication (HCC) History of pulmonary embolus during Family history of hypercoagulable state Expected: 03/23/2024, Expires: 06/22/2024 [facility] Work Phone: Comment on above: Expected: 03/23/2024, Expires: 5 Start: 03-16-2024 End: 03-16-2024 Follow-up encounter 03/16/2024 8:30 AM EDT [facility] [address] [place] [place] [address] Alia Parmar MD [address] [place], [place] [id number] Follow up ulcerative colitis, just approved for Skyrizi, will be starting soon [facility] Comment on above: Follow up ulcerative colitis, just appro sarai for Skyrizi, will be starting soon Start: 02-13-2024 End: 02-13-2024 Patient encounter procedure 02/13/2024 3:00 PM EDT Appointment Ambulatory Surgery [address] [place] [address] diarrhea Ambulatory Surgery Comment on above: diarrhea Start: 02-05-2024 Covid-19 Vaccine () Covid-19 Vaccine () [facility] Start: 02-05-2024 Covid-19 Vaccine () Covid-19 Vaccine () [facility] Start: 02-05-2024 Influenza vaccination [facility] Start: 01-29-2024 Thyroid Nodule Ultrasound Thyroid Nodule Ultrasound [facility] Start: 01-03-2024 End: 01-03-2024 Patient encounter procedure [facility] Comment on above: Right lower quadrant abdominal pain [R10 .31] Start: 12-20-2023 End: 12-19-2024 BLOOD TB SCREEN, INCUBATED BLOOD TB SCREEN, INCUBATED Lab Routine Ulcerative colitis without complications, unspecified location (HCC) Skin rash Expected: 12/20/2023, Expires: 12/19/2024 [facility] Comment on above: Expected: 12/20/2023, Expires: 5 Start: 12-20-2023 End: 03-20-2024 C reactive protein [Mass/volume] in Serum or Plasma C-REACTIVE PROTEIN Lab Routine Ulcerative colitis without complications, unspecified location (HCC) Skin rash Expected: 12/20/2023, Expires: 03/20/2024 [facility] Comment on above: Expected: 12/20/2023, Expires: 4 Start: 12-20-2023 End: 03-20-2024 Calcitriol [Mass/volume] in Serum or Plasma VITAMIN D1 25-DIHYDR Lab Routine Ulcerative colitis without complications, unspecified location (HCC) Skin rash Vitamin D deficiency Expected: 12/20/2023, Expires: 03/20/2024 [facility] Comment on above: Expected: 12/20/2023, Expires: 4 Start: 12-20-2023 End: 03-20-2024 CBC W Auto Differential panel - Blood COMPLETE BLOOD COUNT AND DIFFERENTIAL Lab Routine Ulcerative colitis without complications, unspecified location (HCC) Skin rash Expected: 12/20/2023, Expires: 03/20/2024 [facility] Comment on above: Expected: 12/20/2023, Expires: Start: 12-20-2023 End: 03-20-2024 CELIAC SCREEN WITH REFLEX CELIAC SCREEN WITH REFLEX Lab Routine Ulcerative colitis without complications, unspecified location (HCC) Skin rash Expected: 12/20/2023, Expires: 03/20/2024 [facility] Comment on above: Expected: 12/20/2023, Expires: Start: 12-20-2023 End: 03-20-2024 Cobalamin (Vitamin B12) [Mass/volume] in Serum or Plasma VITAMIN B12 Lab Routine Ulcerative colitis without complications, unspecified location (HCC) Skin rash Expected: 12/20/2023, Expires: 03/20/2024 [facility] Comment on above: Expected: 12/20/2023, Expires: Start: 12-20-2023 End: 03-20-2024 Comprehensive metabolic 2000 panel - Serum or Plasma COMPREHENSIVE METABOLIC PANEL Lab Routine Ulcerative colitis without complications, unspecified location (HCC) Skin rash Expected: 12/20/2023, Expires: 03/20/2024 [facility] Comment on above: Expected: 12/20/2023, Expires: Start: 12-20-2023 End: 03-20-2024 Ferritin [Mass/volume] in Serum or Plasma FERRITIN Lab Routine Ulcerative colitis without complications, unspecified location (HCC) Expected: 12/20/2023, Expires: 03/20/2024 [facility] Comment on above: Expected: 12/20/2023, Expires: Start: 12-20-2023 End: 03-20-2024 HEPATITIS A ANTIBODY, IGG HEPATITIS A ANTIBODY, IGG Lab Routine Ulcerative colitis without complications, unspecified location (HCC) Skin rash Expected: 12/20/2023, Expires: 03/20/2024 [facility] Comment on above: Expected: 12/20/2023, Expires: Start: 12-20-2023 End: 03-20-2024 Hepatitis A virus IgM Ab [Presence] in Serum HEPATITIS A ANTIBODY IGM Lab Routine Ulcerative colitis without complications, unspecified location (HCC) Skin rash Expected: 12/20/2023, Expires: 03/20/2024 [facility] Comment on above: Expected: 12/20/2023, Expires: Start: 12-20-2023 End: 03-20-2024 Hepatitis B virus surface Ab [Presence] in Serum HEPATITIS B SURFACE ANTIBODY Lab Routine Ulcerative colitis without complications, unspecified location (HCC) Skin rash Expected: 12/20/2023, Expires: 03/20/2024 [facility] Comment on above: Expected: 12/20/2023, Expires: Start: 12-20-2023 End: 03-20-2024 Hepatitis B virus surface Ag [Presence] in Serum HEPATITIS B SURFACE ANTIGEN Lab Routine Ulcerative colitis without complications, unspecified location (HCC) Skin rash Expected: 12/20/2023, Expires: 03/20/2024 [facility] Comment on above: Expected: 12/20/2023, Expires: Start: 12-20-2023 End: 03-20-2024 Hepatitis C virus Ab [Presence] in Serum HEPATITIS C ANTIBODY IA WITH CONFIRMATION Lab Routine Ulcerative colitis without complications, unspecified location (HCC) Skin rash Expected: 12/20/2023, Expires: 03/20/2024 [facility] Comment on above: Expected: 12/20/2023, Expires: Start: 12-20-2023 End: 03-20-2024 Iron and Iron binding capacity panel - Serum or Plasma IRON AND TIBC Lab Routine Ulcerative colitis without complications, unspecified location (HCC) Expected: 12/20/2023, Expires: 03/20/2024 [facility] Comment on above: Expected: 12/20/2023, Expires: Start: 11-06-2023 Screening for malignant neoplasm of breast Mammogram [facility] Start: 06-06-2023 Behavioral Health Screening Behavioral Health Screening [facility] Start: 06-06-2023 Depression Assessment Depression Assessment [facility] Start: 02-04-2023 Covid-19 Vaccine ( season) Covid-19 Vaccine ( season) [facility] Start: 02-04-2023 Influenza vaccination [facility] Start: 06-06-2022 DEPRESSION ASSESSMENT DEPRESSION ASSESSMENT [facility] Start: 04-26-2022 Fluoroscopic guidance [facility] Work Phone: Start: 04-26-2022 Patient discharge [facility] Work Phone: Start: 2022 Pneumococcal vaccination Pneumococcal Vaccine (1 of 1 - PCV) [facility] Start: 2022 Pneumococcal Vaccine: 50+ (1 of 1 - PCV) Pneumococcal Vaccine: 50+ (1 of 1 - PCV) [facility] Start: 2022 SHINGRIX VACCINE (1 of 2) SHINGRIX VACCINE (1 of 2) [facility] Start: 2022 Zoster Vaccines (1 of 2) Zoster Vaccines (1 of 2) [facility] Start: 03-26-2022 Patient referral [facility] Work Phone: Start: 02-04-2022 Influenza vaccination Influenza Vaccine (#1) [facility] Start: 10-02-2021 Bacteria identified in Urine by Culture Urine Culture [facility] Work Phone: Start: 02-04-2021 Influenza vaccination Flu vaccine (#1) [facility] Start: 05-10-2020 Mammography MAMMOGRAM [facility] Start: 05-10-2020 Screening for malignant neoplasm of breast Mammogram Screening [facility] Start: 02-05-2020 Influenza vaccination Flu vaccine (#1) [place] Start: 2017 COLOGUARD (FIT-DNA) COLOGUARD (FIT-DNA) [facility] Start: [address] COLONOGRAPHY [facility] Start: 2017 FECAL OCCULT BLOOD FECAL OCCULT BLOOD [facility] Start: 2017 Screening for malignant neoplasm of colon [facility] Start: 2017 SIGMOIDOSCOPY SIGMOIDOSCOPY [facility] Start: 2012 Lipid [address] Lipid screen [facility] Start: 2012 Screening for malignant neoplasm of breast Mammogram [facility] Start: 1994 DTaP/Tdap/Td Vaccines (1 - Tdap) DTaP/Tdap/Td Vaccines (1 - Tdap) [facility] Start: 1993 Screening for malignant neoplasm of cervix [facility] Start: 1991 DTaP/Tdap/Td vaccine (1 - Tdap) DTaP/Tdap/Td vaccine (1 - Tdap) [facility] Start: 1991 DTaP/Tdap/Td Vaccines (1 - Tdap) DTaP/Tdap/Td Vaccines (1 - Tdap) [facility] Start: 1991 Hepatitis B Vaccine (1 of 3 - 19+ 3-dose series) Hepatitis B Vaccine (1 of 3 - 19+ 3-dose series) [facility] Start: 1991 Hepatitis B Vaccines (1 of 3 - 19+ 3-dose series) Hepatitis B Vaccines (1 of 3 - 19+ 3-dose series) [facility] Start: 1991 Pneumococcal Vaccine: 50+ Years (1 of 2 - PCV) Pneumococcal Vaccine: 50+ Years (1 of 2 - PCV) [facility] Start: 1991 Zoster Vaccines (1 of 2) Zoster Vaccines (1 of 2) [facility] Start: 1990 Anxiety Screening Anxiety Screening [facility] Start: 1990 Depression Screening Depression Screening [facility] Start: 1990 Diabetes mellitus screening Diabetes Screening [facility] Start: 1990 Hepatitis C screening Hepatitis C Screening [facility] Start: 1990 HIV SCREENING HIV SCREENING [facility] Start: 1990 HIV screening HIV Screening [facility] Start: [address] [facility] Start: 1984 COVID-19 Vaccine (1) COVID-19 Vaccine (1) [facility] Start: 1984 Depression Monitoring Depression Monitoring [facility] Start: 1984 Depression Screening Depression Screening [facility] Start: 1978 Pneumococcal 0-64 years Vaccine (1 of 4 - PCV13) Pneumococcal 0-64 years Vaccine (1 of 4 - PCV13) [facility] Start: 1978 Pneumococcal Vaccine: Pediatrics (0 to 5 Years) and At-Risk Patients (6 to 64 Years) (1 of 2 - PCV) Pneumococcal Vaccine: Pediatrics (0 to 5 Years) and At-Risk Patients (6 to 64 Years) (1 of 2 - PCV) [facility] Start: 1977 COVID-19 Vaccine (#1) COVID-19 Vaccine (#1) [facility] Start: 1973 MMR Vaccines (1 of 1 - Standard series) MMR Vaccines (1 of 1 - Standard series) [facility] Start: 1972 COVID-19 VACCINE (#1) COVID-19 VACCINE (#1) [facility] Start: 1972 HEPATITIS B (1 of 3 - 3-dose series) HEPATITIS B (1 of 3 - 3-dose series) [facility] Start: 1972 Hepatitis B Vaccine (1 of 3 - 3-dose series) Hepatitis B Vaccine (1 of 3 - 3-dose series) [facility] Start: 1972 Hepatitis B Vaccines (1 of 3 - 3-dose series) Hepatitis B Vaccines (1 of 3 - 3-dose series) [facility] Start: 1972 Hepatitis C screening Hepatitis C screen [facility] Start: 1972 HIV screening HIV Screening [facility] Start: 1972 Lipid panel Lipid Panel [facility] Start: 1972 Screening for malignant neoplasm of colon [facility] Start: 1972 Thyroid Nodule Ultrasound Thyroid Nodule Ultrasound [facility] Start: 1972 Yearly Adult Physical Yearly Adult Physical [facility] End: 04-21-2021 Basic Metabolic Panel w/ Reflex to MG Basic Metabolic Panel w/ Reflex to MG Lab Routine Tomorrow AM for 1 Occurrences starting 04/21/2021 until 04/21/2021 [facility] Work Phone: Comment on above: Tomorrow AM for 1 Occurrences starting 1 06/21/2020 until 04/21/2021 Basic Metabolic Pane l w/ Reflex to MG Basic Metabolic Panel w/ Reflex to MG Lab STAT 04/21/2021 4:51 AM EST [facility] Work Phone: C reactive protein [Mass/volume] in Serum or Plasma C-REACTIVE PROTEIN Lab Routine Crohn's disease of colon without complication (HCC) History of pulmonary embolus during Family history of hypercoagulable state 03/23/2024 1:39 PM EDT [facility] End: 04-22-2021 C-reactive protein C-Reactive Protein Lab Routine Daily for 3 Occurrences starting 04/20/2021 until 04/22/2021, 1 completed [facility] Work Phone: Comment on above: Daily for 3 Occurrences starting 021 until 04/22/2021, 1 completed C-reactive protein C-Reactive Pr otein Lab STAT 04/21/2021 4:51 AM EST [facility] Work Phone: Calprotectin [Mass/m ass] in Stool CALPROTECTIN,FECAL Lab Routine Ulcerative colitis without complications, unspecified location (HCC) Skin rash Ordered: 12/20/2023 [facility] Comment on above: Ordered: 12/20/2023 Calprotectin [Mass/m ass] in Stool CALPROTECTIN,FECAL Lab Routine Crohn's disease of colon without complication (HCC) History of pulmonary embolus during Family history of hypercoagulable state Ordered: 03/16/2024 [facility] Comment on above: Ordered: 03/16/2024 Calprotectin [Mass/m ass] in Stool CALPROTECTIN,FECAL Lab Routine Crohn's disease of large intestine without complication (HCC) Ordered: 01/04/2025 [facility] Comment on above: Ordered: 01/04/2025 Clostridioides diffi cile toxin genes [Presence] in Stool by ASHLEE with probe detection C. DIFFICILE PCR Lab Routine Ulcerative colitis without complications, unspecified location (HCC) Skin rash Ordered: 12/20/2023 [facility] Comment on above: Ordered: 12/20/2023 Comprehensive metabo lic 2000 panel - Serum or Plasma COMPREHENSIVE METABOLIC PANEL Lab Routine Crohn's disease of colon without complication (HCC) History of pulmonary embolus during Family history of hypercoagulable state 03/23/2024 1:39 PM EDT [facility] Work Phone: End: 01-18-2025 CT Small bowel W contrast PO and W contrast IV CT ENTEROGRAPHY W IVCON Radiology Routine Right lower quadrant abdominal pain 1 Occurrences starting 12/20/2023 until 01/18/2025 [facility] Comment on above: 1 Occurrences starting 12/20/2023 until 01/18/2025 CT Small bowel W con trast PO and W contrast IV CT ENTEROGRAPHY W IVCON Radiology Routine Right lower quadrant abdominal pain 01/03/2024 2:58 PM EDT [facility] Work Phone: End: 04-19-2021 Culture, Respiratory, Sputum Culture, Respiratory, Sputum Microbiology Routine One Time for 1 Occurrences starting 04/19/2021 until 04/19/2021 [employer] Work Phone: Comment on above: One Time for 1 Occurrences starting 04/06 until 04/19/2021 End: 04-22-2021 D-Dimer, Quantitative D-Dimer, Quantitative Lab Routine Tomorrow AM for 3 Occurrences starting 04/20/2021 until 04/22/2021, 2 completed [facility] Work Phone: Comment on above: Tomorrow AM for 3 Occurrences starting 1 06/20/2020 until 04/22/2021, 2 completed End: 04-21-2021 D-Dimer, Quantitative [employer] Work Phone: Comment on above: One Time for 1 Occurrences starting 04/06 until 04/21/2021 End: 12-19-2024 EGD DIAGNOSTIC EGD DIAGNOSTIC Endoscopy Routine Ulcerative colitis without complications, unspecified location (HCC) Skin rash Nausea and vomiting, unspecified vomiting type 1 Occurrences starting 12/20/2023 until 12/19/2024 [facility] Comment on above: 1 Occurrences starting 12/20/2023 until 12/19/2024 Electrocardiographic procedure [facility] Work Phone: ENTERIC BACTERIAL PA SERA BY PCR ENTERIC BACTERIAL PANEL BY PCR Lab Routine Ulcerative colitis without complications, unspecified location (HCC) Skin rash Ordered: 12/20/2023 [facility] Comment on above: Ordered: 12/20/2023 End: 12-19-2024 Flexible sigmoidoscopy study COLONOSCOPY DIAGNOSTIC Endoscopy Routine Ulcerative colitis without complications, unspecified location (HCC) Skin rash 1 Occurrences starting 12/20/2023 until 12/19/2024 [facility] Work Phone: Comment on above: 1 Occurrences starting 12/20/2023 until 12/19/2024 End: 12-05-2025 Flexible sigmoidoscopy study COLONOSCOPY DIAGNOSTIC Endoscopy Routine Crohn's disease of large intestine without complication (HCC) 1 Occurrences starting 12/05/2024 until 12/05/2025 [facility] Work Phone: Comment on above: 1 Occurrences starting 12/05/2024 until 12/05/2025 End: 04-19-2021 Legionella antigen, urine Legionella antigen, urine Microbiology Routine One Time for 1 Occurrences starting 04/19/2021 until 04/19/2021 [facility] Work Phone: Comment on above: One Time for 1 Occurrences starting 04/06 until 04/19/2021 End: 04-19-2021 Microscopic observation [Identifier] in Unspecified specimen by Gram stain Gram Stain Microbiology STAT Once for 1 Occurrences starting 04/19/2021 until 04/19/2021 [facility] Work Phone: Comment on above: Once for 1 Occurrences starting 04/19/20 until 04/19/2021 OUTSIDE PROCEDURE SCAN OUTSIDE P ROCEDURE SCAN Procedures Ordered: 01/28/2023 [facility] [employer] [facility] Comment on above: Ordered: 01/28/2023 OUTSIDE PROCEDURE SCAN OUTSIDE P ROCEDURE SCAN Procedures Ordered: 12/24/2022 [facility] [employer] [facility] Comment on above: Ordered: 12/24/2022 OUTSIDE PROCEDURE SCAN OUTSIDE P ROCEDURE SCAN Procedures Ordered: 03/02/2024 [facility] Comment on above: Ordered: 03/02/2024 Oxygen therapy [Mini mum Data Set] Initiate Oxygen Therapy Protocol Respiratory Care Routine Daily until discontinued starting 04/19/2021 [facility] Work Phone: Comment on above: Daily until discontinued starting 2020 Oxygen therapy [Mini mum Data Set] Initiate Oxygen Therapy Protocol Respiratory Care Routine Daily until discontinued starting 04/20/2021 [facility] Work Phone: Comment on above: Daily until discontinued starting 2020 Patient referral [facility] Work Phone: Spirometry panel Incentive anna metry RT Respiratory Care Routine Every 2hr while awake until discontinued starting 04/21/2021 [facility] Work Phone: Comment on above: Every 2hr while awake until discontinued starting 04/21/2021 End: 04-19-2021 Strep Pneumoniae Antigen Strep Pneumoniae Antigen Microbiology Routine One Time for 1 Occurrences starting 04/19/2021 until 04/19/2021 [employer] Work Phone: Comment on above: One Time for 1 Occurrences starting 04/06 until 04/19/2021 SURGICAL PATHOLOGY [facility] Work Phone: Comment on above: Release Upon Ordering for 1 Occurrences starting 02/13/2024, 1 completed End: 01-28-2023 US Thyroid gland [employer] Work Phone: Comment on above: Once for 1 Occurrences starting 01/29/20 until 01/28/2023 End: 01-28-2023 XR Cervical spine 4 or 5 Views [facility] [employer] Comment on above: Once for 1 Occurrences starting 01/29/20 until 01/28/2023 End: 01-18-2025 XR Chest PA and Lateral XR CHEST 2V FRONTAL/LAT Radiology Routine Ulcerative colitis without complications, unspecified location (HCC) Skin rash 1 Occurrences starting 12/20/2023 until 01/18/2025 [facility] Comment on above: 1 Occurrences starting 12/20/2023 until 01/18/2025 End: 01-28-2023 XR Lumbar spine Views W flexion and W extension [employer] Work Phone: Comment on above: Once for 1 Occurrences starting 01/29/20 until 01/28/2023 [facility] Immunizations Immunization Date Immunization Notes Care Provider Catarina crowell 03-09-2018 influenza virus vaccine, unspecified formulation Xr [facility] NEGATED: Highlighted row has not occurred!06-03-2022 influenza, injectable, quadrivalent, preservative free Elvia Smith RN [facility] Comment on above: Deferred: Patient Re fused Payers Date Payer Category Payer Worker's Compensation [id number] 2024 [email or web address] DAGO HEBERT BS FEP PPO [id number] 2024 [employer] Sami Bhandari ld [facility] Care [facility] [id number] 2024 Self-pay [id number] 2024 Unknown [id number] 2022 [employer] Sami Bhandari ld [facility] Care [facility] [id number] 2022 Unknown [id number] 2017 Unknown [id number] 2012 Unknown 1972 Unknown [id number] 1972 Unknown [id number] 1972 Unknown [id number] Unknown [id number] Unknown [id number] Unknown [id number] Social History Date Type Detail Facility Start: 02-02-2020 End: 02-13-2024 Tobacco smoking status NHIS Former smoker [place] Start: 02-02-2020 End: 02-13-2024 Tobacco use and exposure Never used [place], [place] Start: 02-02-2020 End: 11-14-2024 Alcohol intake Current drinker of alcohol (finding) [place] Start: 12-13-2019 Alcohol Comment occassional [place], [place] Start: 1970 Sex Assigned At Not on file M [place] Start: 05-21-2022 End: 01-28-2023 Exposure to SARS-CoV-2 (event) Not sure [facility] Start: 08-24-2021 End: 06-28-2022 Tobacco smoking status [facility] Unknown if ever smoked [facility] Start: 11-16-2019 Non-smoker [facility] Start: 1970 Sex Assigned At Female [facility] Start: 07-11-1994 End: 07-11-2004 History of tobacco use Current smoker [facility] Start: 07-11-1994 End: 07-11-2004 History of tobacco use Cigarette Smoker [facility] Start: 09-20-2022 End: 11-19-2022 Cigarettes smoked current (pack per day) - Reported 1 [facility] Start: 11-19-2022 End: 12-20-2023 Alcohol intake Current non-drinker of alcohol (finding) [facility] Start: 02-10-2020 End: 05-31-2022 History SDOH Food Worry 1 [facility] Start: 02-10-2020 End: 05-31-2022 History SDOH Transport Med 2 [facility] Start: 02-18-2016 Alcohol Comment rarely [facility] Start: 10-20-2022 End: 01-28-2025 Alcohol intake Ex-drinker (finding) [facility] Start: 05-30-2022 End: 11-19-2022 Alcohol Use Disorder Identification Test - Consumption [AUDIT-C] [facility] How often to you hav e a drink containing alcohol? Never [facility] Start: 05-07-2012 End: 09-15-2022 How many standard drinks containing alcohol do you have on a typical day? Patient does not drink [facility] In the past 12 month s, was there a time when you were not able to pay the mortgage or rent on time? No [facility] (I/We) worried whewoody er (my/our) food would run out before (I/we) got money to buy more. Never true [facility] How often to you hav e a drink containing alcohol? Monthly or less [facility] How many standard dr inks containing alcohol do you have on a typical day? 1 or 2 [facility] How often do you hav e 6 or more drinks on 1 occasion? Less than monthly [facility] Start: 05-31-2022 History SDOH Alcohol Std Drinks 0 [facility] Start: 01-04-2022 Sex Female (finding) [facility] Start: 01-28-2025 Tobacco smoking stat [facility] Smokes tobacco daily [facility] Work Phone: NEGATED: Highlighted rowStart: 09-04-2021 End: 09-04-2021 Alcohol use Alcohol use [facility] Work Phone: NEGATED: Highlighted rowStart: 09-04-2021 End: 09-04-2021 Details of drug misuse behavior Details of drug misuse behavior [facility] Work Phone: NEGATED: Highlighted rowStart: 09-04-2021 End: 09-04-2021 Employment detail Employment detail [facility] Work Phone: NEGATED: Highlighted rowStart: 09-04-2021 End: 09-04-2021 Assertion Former smoker [facility] Work Phone: Goals Date Patient Goal Desired Activity /State Functional Status Date Assessment Result Facility 01-28-2025 Patient Health [facility] ionnaire 2 item (PHQ-2) [Reported] [facility] Work Phone: 09-24-2022 Are you deaf, or do you have serious difficulty hearing No 09/24/2022 3:01 PM EDT Ondina Tobin, OLGA No [facility] 09-24-2022 Are you blind, or do you have serious difficulty seeing, even when wearing glasses No 09/24/2022 3:01 PM EDT Ondina Tobin RN No [facility] 09-24-2022 Do you have serious difficulty walking or climbing stairs No 09/24/2022 3:01 PM EDT Ondina Tobin RN No [facility] 09-24-2022 Do you have difficul ty dressing or bathing No 09/24/2022 3:01 PM EDT Ondina Tobin RN [facility] 09-24-2022 Because of a physica l, mental, or emotional condition, do you have difficulty doing errands alone such as visiting a physician's office or shopping No 09/24/2022 3:01 PM EDT Ondina Tobin RN [facility] Mental Status Date Assessment Result Facility 09-24-2022 Because of a physica l, mental, or emotional condition, do you have serious difficulty concentrating, remembering, or making decisions No 09/24/2022 3:01 PM EDT Ondina Tobin, OLGA [facility] 04-26-2022 Cognitive function Voice/Name [facility] Work Phone: Clinical Notes 02-13-2016 to 03-21-2025 Telephone Encounter - Alia Parmar MD - 01/29/2025 9:32 AM EDTTelephone Encounter - Alia Parmar MD - 01/29/2025 9:32 AM FELICITY Carvalho - 01/28/2025 3:15 PM EDT Note Date & Type Note Facility 03-21-2025 Note HNO ID: [id number] Author: SAYRA MELO RN Service: Nursing Author Type: Registered Nurse Type: Nursing Progress Note Filed: 03/21/2025 14:33 Note Text: Pt. States readiness for discharge. Assisted with dressing. [facility] 03-21-2025 Note HNO ID: [id number] Author: SAYRA MELO RN Service: Nursing Author Type: Registered Nurse Type: Nursing Progress Note Filed: 03/21/2025 14:24 Note Text: Physician at bedside. [facility] 03-01-2025 Note HNO ID: [id number] Author: ROSA TOMLIN CT Service: Radiology Author Type: Technologist Type: Progress Notes Filed: 03/01/2025 16:20 Note Text: Radiology Service Progress Note PATIENT NAME: Callie Kennedy DATE OF SERVICE: March 01, 2025 TIME: 4:19 PM PATIENT IDENTITY VERIFICATION COMPLETED USING TWO (2) IDENTIFIERS: Name and Date of confirmed by patient verbally. FALL SCREENING: Has the patient had 2 falls in the last year or 1 fall with injury or currently using an Ambulatory Assistive Device (Walker, Cane, Wheelchair, Crutches, etc.)? No PATIENT GENDER DATA: Assigned female at . status: : No status: N/A PATIENT RELEVANT IMPLANT DATA REVIEWED: Not Applicable PATIENT PRESENTS WITH AN IMPLANTABLE OR ATTACHED DOT COMPLIANCE COORDINATOR: N/A RADIOLOGY DEPARTMENT: Ultrasound PERIPHERAL IV DATA: Not applicable SIGNED BY: TIARA Garcia March 01, 2025 4:19 PM [facility] 01-29-2025 Telephone encounter Note Probably ok but sounds like she is not feeling well. Can she reschedule to later in the of February? [facility] 01-29-2025 Miscellaneous Notes Probably ok but sounds like she is not feeling well. Can she reschedule to later in the of February? Colonoscopy scheduled 02/07. See message Ok to proceed with appointment on antibiotics? documented in this encounter [facility] 01-29-2025 Telephone encounter Note Colonoscopy scheduled 02/07. See message Ok to proceed with appointment on antibiotics? [facility] 01-28-2025 History of Present illness Narrative Subjective Patient ID: Callie Kennedy is a 54 y.o. female. They present today with a chief complaint of Sore Throat, Sinusitis, and Cough. History of Present Illness C/o sinus, ear, cough and cold s/s x 2 day(s). Has tried OTC meds with mild relief. Denies any CP, SOB, GERARD, fever, abdominal pain, and nausea/vomiting otherwise. History provided by: Patient Sore Throat Associated symptoms include coughing and ear pain. Pertinent negatives include no ear discharge or shortness of breath. Sinusitis Associated symptoms: cough, ear pain, fatigue and sore throat Associated symptoms: no chest pain, no chills, no fever, no rhinorrhea, no shortness of breath and no wheezing Cough Associated symptoms include ear pain, postnasal drip and a sore throat. Pertinent negatives include no chest pain, chills, fever, rhinorrhea, shortness of breath or wheezing. Past Medical History Allergies as of 01/28/2025 - Reviewed 01/28/2025 Allergen Reaction Noted Stelara [ustekinumab] Shortness of breath 01/28/2025 Codeine GI Upset, Hives, Nausea Only, and Other 10/15/2003 Adalimumab Hives 11/19/2022 Prescriptions Prior to Admission[1] Medical History[2] Surgical History[3] reports that she has been smoking cigarettes. She has never used smokeless tobacco. She reports that she does not currently use alcohol. Review of Systems Review of Systems Constitutional: Positive for fatigue. Negative for appetite change, chills, diaphoresis and fever. HENT: Positive for ear pain, postnasal drip, sinus pain and sore throat. Negative for ear discharge, rhinorrhea and sinus pressure. Eyes: Negative. Respiratory: Positive for cough. Negative for shortness of breath and wheezing. Cardiovascular: Negative. Negative for chest pain. Gastrointestinal: Negative. Musculoskeletal: Negative. Skin: Negative. Neurological: Negative. Psychiatric/Behavioral: Negative. All other systems reviewed and are negative. Objective Vitals: 01/28/25 1522 BP: 131/84 Pulse: 98 Resp: 18 Temp: 37 C (98.6 F) TempSrc: Oral SpO2: 97% Weight: 73.9 kg (163 lb) Height: 1.676 m (5' 6") No LMP recorded. Physical Exam Vitals and nursing note reviewed. Constitutional: General: She is not in acute distress. Appearance: Normal appearance. She is not ill-appearing, toxic-appearing or diaphoretic. HENT: Head: Normocephalic and atraumatic. Right Ear: Ear canal normal. Tympanic membrane is injected and erythematous. Tympanic membrane is not perforated or bulging. Left Ear: Ear canal normal. Tympanic membrane is injected and erythematous. Tympanic membrane is not perforated or bulging. Ears: Comments: R > L Nose: Nose normal. No rhinorrhea. Mouth/Throat: Mouth: Mucous membranes are moist. Pharynx: Oropharynx is clear. Posterior oropharyngeal erythema present. Eyes: Extraocular Movements: Extraocular movements intact. Pupils: Pupils are equal, round, and reactive to light. Cardiovascular: Rate and Rhythm: Normal rate and regular rhythm. Pulses: Normal pulses. Heart sounds: Normal heart sounds. Pulmonary: Effort: Pulmonary effort is normal. No respiratory distress. Breath sounds: Normal breath sounds. No wheezing or rhonchi. Abdominal: General: Abdomen is flat. Bowel sounds are normal. Palpations: Abdomen is soft. Tenderness: There is no right CVA tenderness or left CVA tenderness. Skin: General: Skin is warm and dry. Neurological: General: No focal deficit present. Mental Status: She is alert and oriented to person, place, and time. Cranial Nerves: No cranial nerve deficit. Psychiatric: Mood and Affect: Mood normal. Behavior: Behavior normal. Procedures Point of Care Test & Imaging Results from this visit Results for orders placed or performed in visit on 01/28/25 POCT Covid-19 Rapid Antigen Result Value Ref Range POC YOLA-COV-2 AG Presumptive negative test for SARS-CoV-2 (no antigen detected) Presumptive negative test for SARS-CoV-2 (no antigen detected) POCT SPOTFIRE R/ST Panel Mini w/Strep A (DNA Direct) manually resulted Result Value Ref Range POC Group A Strep, PCR Negative Negative POC Respiratory Syncytial Virus PCR Negative Negative POC Influenza A Virus PCR Negative Negative POC Influenza B Virus PCR Negative Negative POC Human Rhinovirus PCR Negative Negative Imaging No results found. Cardiology, Vascular, and Other Imaging No other imaging results found for the past 2 days Diagnostic study results (if any) were reviewed by FELICITY Vázquez. Assessment/Plan Allergies, medications, history, and pertinent labs/EKGs/Imaging reviewed by FELICITY Vázquez. Medical Decision Making POCT negative. See results. On exam, R/L OM, eustachian tube dysfunction (ETD), nasal sinus congestion. Sending augmentin. Sending cetrizine and Flonase for PND/ETD. Sending benzonatate for cough. Discussed pushing fluids, rest, OTC symptoms management PRN. Close follow up with PCP. Patient verbalized understanding and agreed with the plan of care. At time of discharge, patient was clinically well-appearing and appropriate for outpatient management. The patient/parent/guardian was educated regarding diagnosis, supportive care, OTC and Rx medications. The patient/parent/guardian was given the opportunity to ask questions prior to discharge. They verbalized understanding of discussion of treatment plan, expected course of illness and/or injury, indications on when to return to , when to seek further evaluation in ED/call 911, and the need to follow up with PCP and/or specialist as referred. Patient/parent/guardian was provided with work/school documentation if requested. Patient stable upon discharge. Orders and Diagnoses Diagnoses and all orders for this visit: Non-recurrent acute suppurative otitis media of both ears without spontaneous rupture of tympanic membranes - amoxicillin-clavulanate (Augmentin) 875-125 mg tablet; Take 1 tablet (875 mg of amoxicillin) by mouth 2 times a day for 7 days. Eustachian tube dysfunction, bilateral - cetirizine (ZyrTEC) 10 mg tablet; Take 1 tablet (10 mg) by mouth once daily. - fluticasone (Flonase) 50 mcg/actuation nasal spray; Administer 1 spray into each nostril once daily. Shake gently. Before first use, prime pump. After use, clean tip and replace cap. PND (post-nasal drip) - cetirizine (ZyrTEC) 10 mg tablet; Take 1 tablet (10 mg) by mouth once daily. - fluticasone (Flonase) 50 mcg/actuation nasal spray; Administer 1 spray into each nostril once daily. Shake gently. Before first use, prime pump. After use, clean tip and replace cap. Acute cough - benzonatate (Tessalon) 200 mg capsule; Take 1 capsule (200 mg) by mouth 3 times a day as needed for cough for up to 10 days. Do not crush or chew. - POCT Covid-19 Rapid Antigen Nasal sinus congestion Viral sore throat - POCT SPOTFIRE R/ST Panel Mini w/Strep A ([facility]) manually resulted Medical Admin Record Patient disposition: Home Electronically signed by FELICITY Vázquez 4:12 PM [1] (Not in a hospital admission) [2] History reviewed. No pertinent past medical history. [3] History reviewed. No pertinent surgical history. documented in this encounter [facility] Work Phone: 01-04-2025 History of Present illness Narrative I have communicated my name and active licensure. The patient's identity and physical location were verified at the time of this visit. Either the patient or their legal signs and displays sales representative has been informed of the risks and benefits of -- and alternatives to -- treatment through a remote evaluation and consents to proceed with the evaluation remotely. Subjective Callie Kennedy is a 54 year old female. As of my last OV 2023: Last visit She is doing OK Getting started on skyrizi next week She has not obtained vaccinations or CXR yet but was negative for TB Joints are good Bowels are ok At times, fatigued Labs: Elevated Fecal Calpro 952 Normal cbc, cmp, crp, vitamin b12, vitamin d, iron studies Needs HAV, HBV vaccination Negative for TB CXR was ordered but not completed. CTE: inflammation in colon and rectum Colonoscopy and EGD: - Preparation of the colon was fair. - Perianal skin tags found on perianal exam. - Non-thrombosed external hemorrhoids found on digital rectal exam. - Non-bleeding internal hemorrhoids. - The examined portion of the ileum was normal. - The ascending colon and cecum are normal. Biopsied. - The transverse colon is normal. Biopsied. - A few ulcers at the splenic flexure. Biopsied. - The descending colon is normal. Biopsied. - Pseudopolyps in the descending colon. Biopsied. - The rectum, sigmoid colon and recto-sigmoid colon are normal. Biopsied. - The examination was otherwise normal on direct and retroflexion views. - Z-line regular, 38 cm from the incisors. - Normal esophagus. - Normal stomach. Biopsied. - 2 cm hiatal hernia. - Normal duodenal bulb, second portion of the duodenum and third portion of the duodenum. Biopsied. FINAL DIAGNOSIS A. Small bowel, duodenum, biopsy: - Small bowel mucosa with no significant diagnostic alterations. B. Stomach, antrum, biopsies: - Superficial fragments of gastric mucosa with no significant diagnostic alterations. - No morphologic evidence of Helicobacter pylori organisms. C. Colon, cecum and ascending, biopsies: - Colonic mucosa with intramucosal giant cells. - Negative for dysplasia. D. Colon, transverse, biopsy: - Colonic mucosa with intramucosal granulomas and isolated giant cells. - Negative for dysplasia. E. Colon, splenic flexure, biopsy: - Chronic active colitis with intramucosal granulomas, focal erosion, and isolated giant cells. - Negative for dysplasia. See comment. F. Colon, descending, biopsy: - Chronic focally active colitis with intramucosal granulomas. - Negative for dysplasia. G. Colon, descending, polypectomies: - Post-inflammatory polyps with intramucosal granuloma and isolated giant cells. - Negative for dysplasia. H. Rectum, biopsy: - Chronic active colitis with intramucosal granulomas and isolated giant cells. - Negative for dysplasia. 09/2024 Right hip and pelvis Xray for pain: Negative. No fracture or dislocation Saw Liz Avery PA-C, 11/2024 for RLQ pain flare with Numbness and tingling in the right thigh and buttock, ? CD vs. Other Sent to ER CBC, CMP, lipase normal 11/11/2024 CT scan a/p with IV contrast: IMPRESSION: No acute bowel inflammation. Tiny hypodensitiy in liver dome 11/14/2024 CT scan a/p with IV contrast IMPRESSION: No acute findings. Liver: Small hepatic cyst. (Shown to be hemngioma on past imaging) Biliary: No bile duct dilation. Gallbladder is unremarkable. Spleen: No mass. No splenomegaly. Pancreas: Chronic mild diffuse duct dilation. (All prior imaging has been normal dating back 3 years). Adrenals: No mass. Kidneys: No hydronephrosis. GI tract: No dilation or wall thickening. Appendectomy. Lymph nodes: No abdominal or pelvic lymphadenopathy. Mesentery/Peritoneum: No ascites or mass. Retroperitoneum: No mass. Vasculature: Aorta is nonaneurysmal. Pelvis: No mass, ascites or fluid collection. Bones/Soft Tissues: No acute osseous findings. Lower thorax: Noncontributory. Localizer images: No additional findings. 01/06/2024 CT enterography: Liver: A 1.2 cm hemangioma of the right hepatic dome is less conspicuous likely due to contrast bolus timing. Gallbladder: No CT evident gallstones. Biliary system: No biliary ductal dilatation. Unchanged mild ectasia of the CBD measures up to 0.8 cm with smooth distal tapering. Pancreas: Normal. IMPRESSION: 1. Mild mucosal thickening of the rectum and distal sigmoid, reflecting active inflammation. No penetrating disease. 2. No significant extra gastrointestinal findings. Medication history: Balsalazide many years ago Steroids 2016 Humira: (hives over the entire body with the initial induction doses so this was stopped before maintenance stage but she did get all induction doses) Stelara: A few minutes into the infusion she had issue with breathing and she had to be taken to the hospital TODAY: Callie Kennedy is a 54-year-old female with a history of Crohn's disease, presenting for follow-up after recent abdominal pain and flare-ups. Recording using [employer] software for draft documentation of the visit was discussed with the patient/authorized signs and displays sales representative; all questions welcomed and answered. Patient/authorized signs and displays sales representative agreed to proceed Crohn's Disease: - Recent severe abdominal pain and flare-ups in November. - Symptoms included diarrhea (up to 5 times daily), cramping, and loss of appetite. - Nocturnal diarrhea reported. - Occasional small traces of blood in stool. - Last dose of Skyrizi was approximately 6 weeks ago; no missed doses reported. - Recent ER visit with normal CBC, CMP, and lipase. - CT scan showed no bowel inflammation. - Colonoscopy scheduled for February 07. - Currently on a steroid taper prescribed by Liz Avery PA-C, with improvement in symptoms. - Previous treatments include 5-ASA products, Humira (discontinued due to hives), and Stelara (discontinued due to breathing issues). 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 Objective LMP 03/07/2010 Gen: pleasant WF, NAD, AAO*3, happy smiling and interactive with me Assessment and plan: 1. Crohn's disease of large intestine without complication (HCC) (K50.10) - Recent abdominal pain, diarrhea, and cramping episodes not clearly attributable to active Crohn's disease based on normal CBC, CMP, lipase, and CT scan findings. - Completed steroid taper (40 mg PO daily x 1 week, then tapering by 5 mg weekly); symptoms improved. - Continue Skyrizi as scheduled; patient to confirm next dose timing. - Order repeat fecal calprotectin and inflammatory markers (to be completed the week of colonoscopy, after steroid taper is complete). - Colonoscopy scheduled for February 07 to assess disease activity off steroids. - Discussed risks of repeated steroid use, including osteoporosis; patient advised to avoid further steroids after January 09. - Educated on potential for IBS or other GI issues unrelated to Crohn's; patient advised to contact clinic with any questions or concerns. - [facility]; virtual visit at end of 2024, in-person visit next summer. 2. Family history of hypercoagulable state (Z83.2) 3. History of pulmonary embolus during (Z86.711) 4. History of deep vein thrombosis (Z86.718) - Reviewed hematology evaluation; no evidence of hypercoagulable state in this patient by labs and heme also reviewed her family history. 5. Liver hemangioma (D18.03) - Small hemangioma noted on prior imaging; no current concerns. 6. 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 - Pancreatic enzymes normal; prior imaging (CT enterography December 2023, CT abdomen/pelvis October 2023, CT 2021) showed no significant abnormalities. There is bile duct ectasia on the 2023 CT enterography - Order IgG4 subclass to evaluate for autoimmune pancreatitis. - Educated patient on possible causes (prior inflammation, chronic pancreatitis); - Plan for imaging in 3 [address] MRCP depending upon bowel habits - Can consider EUS if not improving or worsening. Patient instructions: We discussed your recent abdominal pain and flare-ups: - You experienced diarrhea, cramping, and loss of appetite in November, with loose stools up to 5 times daily, including at night. There were small traces of blood in your stool. - A CT scan and blood work (CBC, CMP, lipase) were normal, showing no active inflammation or signs of Crohn's disease at that time. - You were treated with a high-dose steroid taper, which resolved your symptoms. You are currently on the final week of the taper (5 mg daily) and will complete it by January 09. Do not take any steroids after this date. We discussed your Crohn's disease and next steps: - I am not convinced your recent symptoms were related to Crohn's disease, as your imaging and blood work were normal. It is possible these symptoms were due to irritable bowel syndrome or another gastrointestinal issue. - To evaluate your Crohn's disease, you will have a colonoscopy on February 07. It is important to be off steroids for at least 4 weeks before this procedure to avoid masking inflammation. - I have ordered blood work (inflammatory markers) and a stool test (fecal calprotectin). Please complete these tests the week of your colonoscopy. We discussed your pancreas: - Your CT scan showed mild chronic diffuse duct dilation in the pancreas, which may indicate past low-grade inflammation or chronic pancreatitis. However, there are no masses, tumors, or blockages seen on any imaging, and your pancreatic markers were normal. - I will check your IgG4 subclass levels in your blood to rule out autoimmune pancreatitis. If future imaging shows persistent changes or if pancreatic markers rise, we may consider an endoscopic ultrasound. At this time, no further imaging is needed. We discussed your medication history: - You are currently on Skyrizi for Crohn's disease. Please message me with the date of your last dose so we can track your schedule. - You have previously tried balsalazide, mesalamine, Humira (discontinued due to hives), and Stelara (discontinued due to breathing issues). Follow-up plan: - Complete your steroid taper by January 09 and do not take any steroids after this date. - Complete your blood work and stool test the week of your colonoscopy (February 07). - We will review your colonoscopy and test results via dakick to determine if your Crohn's disease is active and if any medication changes are needed. - A virtual follow-up visit will be scheduled for the end of the year, with an in-person visit planned for next summer. If you have any questions or concerns, please reach out to our office. Visit was conducted via Qulsarom Patient Location: Patient Home or Place of Residence documented in this encounter [facility] 01-04-2025 Note HNO ID: [id number] Author: ALIA PARMAR MD Service: ? Author Type: Physician Type: Progress Notes Filed: 01/04/2025 09:27 Note Text: I have communicated my name and active licensure. The patient's identity and physical location were verified at the time of this visit. Either the patient or their legal signs and displays sales representative has been informed of the risks and benefits of -- and alternatives to -- treatment through a remote evaluation and consents to proceed with the evaluation remotely. Subjective Callie Kennedy is a 54 year old female. As of my last OV 2023: Last visit She is doing OK Getting started on skyrizi next week She has not obtained vaccinations or CXR yet but was negative for TB Joints are good Bowels are ok At times, fatigued Labs: Elevated Fecal Calpro 952 Normal cbc, cmp, crp, vitamin b12, vitamin d, iron studies Needs HAV, HBV vaccination Negative for TB CXR was ordered but not completed. CTE: inflammation in colon and rectum Colonoscopy and EGD: - Preparation of the colon was fair. - Perianal skin tags found on perianal exam. - Non-thrombosed external hemorrhoids found on digital rectal exam. - Non-bleeding internal hemorrhoids. - The examined portion of the ileum was normal. - The ascending colon and cecum are normal. Biopsied. - The transverse colon is normal. Biopsied. - A few ulcers at the splenic flexure. Biopsied. - The descending colon is normal. Biopsied. - Pseudopolyps in the descending colon. Biopsied. - The rectum, sigmoid colon and recto-sigmoid colon are normal. Biopsied. - The examination was otherwise normal on direct and retroflexion views. - Z-line regular, 38 cm from the incisors. - Normal esophagus. - Normal stomach. Biopsied. - 2 cm hiatal hernia. - Normal duodenal bulb, second portion of the duodenum and third portion of the duodenum. Biopsied. FINAL DIAGNOSIS A. Small bowel, duodenum, biopsy: - Small bowel mucosa with no significant diagnostic alterations. B. Stomach, antrum, biopsies: - Superficial fragments of gastric mucosa with no significant diagnostic alterations. - No morphologic evidence of Helicobacter pylori organisms. C. Colon, cecum and ascending, biopsies: - Colonic mucosa with intramucosal giant cells. - Negative for dysplasia. D. Colon, transverse, biopsy: - Colonic mucosa with intramucosal granulomas and isolated giant cells. - Negative for dysplasia. E. Colon, splenic flexure, biopsy: - Chronic active colitis with intramucosal granulomas, focal erosion, and isolated giant cells. - Negative for dysplasia. See comment. F. Colon, descending, biopsy: - Chronic focally active colitis with intramucosal granulomas. - Negative for dysplasia. G. Colon, descending, polypectomies: - Post-inflammatory polyps with intramucosal granuloma and isolated giant cells. - Negative for dysplasia. H. Rectum, biopsy: - Chronic active colitis with intramucosal granulomas and isolated giant cells. - Negative for dysplasia. 09/2024 Right hip and pelvis Xray for pain: Negative. No fracture or dislocation Saw Liz Avery PA-C, 11/2024 for RLQ pain flare with Numbness and tingling in the right thigh and buttock, ? CD vs. Other Sent to ER CBC, CMP, lipase normal 11/11/2024 CT scan a/p with IV contrast: IMPRESSION: No acute bowel inflammation. Tiny hypodensitiy in liver dome 11/14/2024 CT scan a/p with IV contrast IMPRESSION: No acute findings. Liver: Small hepatic cyst. (Shown to be hemngioma on past imaging) Biliary: No bile duct dilation. Gallbladder is unremarkable. Spleen: No mass. No splenomegaly. Pancreas: Chronic mild diffuse duct dilation. (All prior imaging has been normal dating back 3 years). Adrenals: No mass. Kidneys: No hydronephrosis. GI tract: No dilation or wall thickening. Appendectomy. Lymph nodes: No abdominal or pelvic lymphadenopathy. Mesentery/Peritoneum: No ascites or mass. Retroperitoneum: No mass. Vasculature: Aorta is nonaneurysmal. Pelvis: No mass, ascites or fluid collection. Bones/Soft Tissues: No acute osseous findings. Lower thorax: Noncontributory. Localizer images: No additional findings. 01/06/2024 CT enterography: Liver: A 1.2 cm hemangioma of the right hepatic dome is less conspicuous likely due to contrast bolus timing. Gallbladder: No CT evident gallstones. Biliary system: No biliary ductal dilatation. Unchanged mild ectasia of the CBD measures up to 0.8 cm with smooth distal tapering. Pancreas: Normal. IMPRESSION: 1. Mild mucosal thickening of the rectum and distal sigmoid, reflecting active inflammation. No penetrating disease. 2. No significant extra gastrointestinal findings. Medication history: Balsalazide many years ago Steroids 2016 Humira: (hives over the entire body with the initial induction doses so this was stopped before maintenance stage but she did get all induction doses) 2015/2016 S (more content not included)... [facility] 12-05-2024 Telephone encounter Note I would recommend the golytely. However, if she wants to do the miralax/gatorade, please send her the prep instructions if possible. Spoke to patient and reviewed advice from Dr Parmar above She would prefer Miralax/ gatorade prep Instructions sent through my chart [facility] 12-05-2024 Miscellaneous Notes I would recommend the golytely. However, if she wants to do the miralax/gatorade, please send her the prep instructions if possible. Spoke to patient and reviewed advice from Dr Parmar above She would prefer Miralax/ gatorade prep Instructions sent through my chart Patient is scheduled for diagnostic colonoscopy on 02/07/[address] Parmar. Patient is wondering if possible to do a Miralax prep instead of Golytely due to her vomiting last time. Please advise. Images from the original note were not included. Alia Parmar MD [facility] [place] Please help her get scheduled for colonoscopy documented in this encounter [facility] 12-05-2024 Telephone encounter Note Patient is scheduled for diagnostic colonoscopy on 02/07/[address] Parmar. Patient is wondering if possible to do a Miralax prep instead of Golytely due to her vomiting last time. Please advise. [facility] 12-05-2024 Telephone encounter Note Images from the original note were not included. Alia Parmar MD [facility] [place] Please help her get scheduled for colonoscopy [facility] 12-05-2024 Instructions Alia Parmar MD - 12/05/2024 11:09 AM EDT COLONOSCOPY BOWEL PREPARATION INSTRUCTIONS GOLYTELY/NULYTELY/TRILYTE/COLYTE Your doctor has scheduled you for a colonoscopy. To have a successful colonoscopy, you must have a clean colon, that is empty. A clean colon allows your doctor to see the entire colon & diagnose issues like polyps or cancer. For doctors, a clean colon is like driving on a hector day; a dirty colon like driving in a storm. It is very important that you follow these instructions exactly, or your colonoscopy might not be as effective, could be canceled, and you may need to do the bowel prep and the colonoscopy again. TRANSPORTATION REQUIREMENTS You are receiving IV sedation. For your safety, a responsible adult escort must accompany you to and from your procedure: Your adult escort MUST be present with you at check-in for your colonoscopy. Your adult escort MUST remain in the endoscopy area until you are discharged. Your adult escort MUST transport you home once you are discharged. You are NOT allowed to operate any form of transportation (i.e. drive a car, bicycle, etc.) or leave the Endoscopy Center ALONE. It is not safe to do so. If you cannot meet these requirements, your procedure will be canceled. MEDICATION REQUIREMENTS For your safety, certain medications will need to be stopped or adjusted before you can have your procedure: BLOOD THINNERS: If you take blood thinners, such as Coumadin (warfarin), Plavix (clopidogrel), Ticlid (ticlopidine hydrochloride), Agrylin (anagrelide), Xarelto (Rivaroxaban), Pradaxa (Dabigatran), Eliquis (Apixaban), or Effient (Prasugrel), contact the physician who is prescribing these medications at least 2 weeks prior to your procedure to discuss any necessary adjustments. DIABETES: If you take medications for diabetes, your dosage may need to be adjusted. If you are being treated for diabetes with insulin, diabetic pills, or other injectable medications do not take your REGULAR dose after midnight on the day of your procedure. If you are taking any other types of insulin such as Lantus, Humalog, NPH (long-acting insulin), or 70/30 insulin, take half your normal dose the day before your procedure. DIABETES/WEIGHT MANAGEMENT: If you take medications for weight-loss, your dosage may need to be adjusted Contact the doctor who prescribes this medication for further instructions. If you take medications for weight-loss like semaglutide (Ozempic, Wegovy, Rybelsus), dulaglutide (Trulicity), liraglutide (Victoza, Saxenda), exenatide (Byetta, Bydureon), or lixisenatide (Adylyxin), stop your medication 1 week prior to your procedure. If you take medications like canagliflozin (Invokana), dapagliflozin (Farxiga, Forxiga), empagliflozin (Jardiance), stop your medication 3 days prior to your procedure. If you take ertugliflozin (Steglatro) stop your medication 4 days prior to your procedure. IRON: If you take iron pills, STOP them 1 week BEFORE your procedure, may resume after. OTHER MEDS: May take all other medications (including aspirin, antibiotics, water pills / diuretics like Lasix or Metolozone, blood pressure meds, etc.) at their usual scheduled time with a sip of water. DIET REQUIREMENTS The day before your colonoscopy, you may have a clear liquid diet (see below). The day of your colonoscopy, you may continue a clear liquid diet until 3 hours before your colonoscopy. Within 3 hours of your colonoscopy, take only any medications (as above) with a sip of water. Clear Liquid Diet Broth (chicken, beef or vegetable broth or bullion. Just the broth, no solids). Water Coffee or Tea (NO milk or creamer), but sugar and sugar substitutes are allowed. Clear liquids including clear, yellow, green, blue (NO red, NO orange, NO purple) Sodas / soft drinks Gatorade or other sports drinks Ibrahima-Aid or flavored drinks Plain Jell-O or other gelatins Fruit juice (strained; no-pulp) Popsicles or hard candy BOWEL PREPARATION (GOLYTELY/NULYTELY/TRILYTE/COLYTE ) Split Dosing Bowel Prep: This means drinking your bowel prep in two doses. Split dosing helps clean your colon better and makes it less likely that your procedure will be canceled. Fill your prescription for Golytely/Nulytely/Trilyte/Colyte: The afternoon before your colonoscopy, mix the solution and refrigerate. You may add the flavor pack (if present) that came with the bowel preparation. Do not add ice, sugar, or other flavorings to the solution. You will drink your prep in two doses, by several hours. On the evening before your colonoscopy: 1. 6 PM drink the first half of the bowel preparation solution. Drink one 8-ounce glass every 15 minutes. 2. Six hours before your colonoscopy, drink the second half of the solution. Drink one 8-ounce glass every 15 minutes. 3. You may continue a clear liquid diet until 3 hours before your colonoscopy. Bowel prep can work differently from person to person. Some people's bowels move slowly and they may need different instructions. Please see your doctor in office or virtually for personalized bowel prep instructions if you have: Medical condition that needs special accommodations Had a poor bowel prep results or failed bowel prep attempts in the past. Had difficulty with anesthesia during the procedure. FREQUENTLY ASKED QUESTIONS Q: What if I suffer from constipation? A: Recommend taking extra laxatives to resolve your constipation days prior to entering the bowel prep day. Q: What if have had prior poor preps results in past? A: Contact your physician as you will likely need additional bowel prep instructions. Q: What if I have motility issues like Parkinson's, MS (multiple sclerosis), wheelchair dependent, etc.? or on medications that slow bowel emptying (narcotics, gabapentin, anticholinergic medications etc.) A: Contact your physician as you will likely need extra time and additional laxatives to complete your bowel prep. Q: What if I cannot drink large volume of liquid? A: Start your prep 2-3 hours earlier to allow yourself more time to complete the entire prep. Q: What if I can't finish my bowel prep? A: If you cannot finish your entire bowel prep, it is likely that your colonoscopy will need to be rescheduled due to poor prep quality. Q: What if I had bariatric surgery? Do I still have to complete the entire prep? A: Yes, gastric bypass surgery involves the stomach & small bowel. You may need to drink smaller amounts, slower (may need more time to complete your bowel prep). Gastric bypass does not alter the length of your colon so you will need to complete the entire bowel prep, it may just take longer time to complete it. Q: What if I am on dialysis? 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 In general, dialysis patients take the EverySignally bowel prep and have the procedure same day of their dialysis (colonoscopy in AM, dialysis in PM). Q: How do I know if something is considered as clear liquid diet? A: If you can pour it in a glass and you can see through it, it is considered "clear liquid" Q: Can I eat nuts, seeds, beans, popcorn, dried fruits, vegetables & fruits that have skin peel? A: No, you will need to not eat these items starting 3 days prior to procedure. Q: Can I take Uber/Lyft/taxi/bus home? A: An adult MUST be present with you at check-in for your colonoscopy and remain in the endoscopy area until you are discharged. You can take Uber home only if this adult escort is with you at check in, remain in the endoscopy area until you are discharged, and takes the Uber with you to home. Q: Can I sleep it off here and drive myself home? A: No, you must have an adult with you at time of procedure check in, remain in the endoscopy center during your procedure, and drive you home. You cannot drive a vehicle after your procedure the rest of the day. documented in this encounter [facility] 11-14-2024 Note HNO ID: [id number] Author: LIZ AVERY PA-C Service: ? Author Type: Physician Real Estate Operations Manager Type: Progress Notes Filed: 11/14/2024 14:03 Note Text: CHIEF COMPLAINT: Patient presents with: ER F/U: Crohns HPI Callie Kennedy is a 54 year old female here today for ER F/U (Crohns ) Patient tells me that she has been in a flare in her Crohn's since last Tuesday. Notes severe lower abdominal pain with numbness in the area now. Pain is continuing to worsen. Sharp in the RLQ pain. Patient is visibly uncomfortable today. Notes she was having watery diarrhea but this has subsided. Does think its due to not eating. No rectal bleeding. Tolerating Skyrizi however doesn't believe it is working. States this is her third flare in [address] abd/pelvis 11/11/2024: IMPRESSION: No acute bowel inflammation. Last OV with Dr. Parmar 03/16/2024: ASSESSMENT: 1. Crohn's disease of colon without complication (HCC) -Beginning Skyrizi next week -Check labs in April 23, 2024 week and Jun 22, 2024 week -She should obtain the hepatitis A, Hepatitis B vaccination series -She should also obtain the shingrix and pneumovax vaccinations due to her immunocompromised state even though she is not 67, these are recommended by the IBD societies given that she is on a biologic immunosuppressant for IBD -We discussed flu vaccination. She has an allergy and was told never to get it again - We discussed COVID 19 vaccination/booster recommendations to obtain this and she will think about this. - COMPLETE BLOOD COUNT AND DIFFERENTIAL; Future - COMPREHENSIVE METABOLIC PANEL; Future - C-REACTIVE PROTEIN; Future - CALPROTECTIN,FECAL - COMPLETE BLOOD COUNT AND DIFFERENTIAL; Future - COMPREHENSIVE METABOLIC PANEL; Future - C-REACTIVE PROTEIN; Future 2. History of pulmonary embolus during Consult to hematology (+) FHX of hypercoagulable state in sister - CONSULT TO HEMATOLOGY/ONCOLOGY; Future - COMPLETE BLOOD COUNT AND DIFFERENTIAL; Future - COMPREHENSIVE METABOLIC PANEL; Future - C-REACTIVE PROTEIN; Future - CALPROTECTIN,FECAL - COMPLETE BLOOD COUNT AND DIFFERENTIAL; Future - C-REACTIVE PROTEIN; Future 3. Family history of hypercoagulable state Sister has factor V leiden and lupus anticoagulant Patient had bilateral PE during and has h/o IBD - CONSULT TO HEMATOLOGY/ONCOLOGY; Future - COMPLETE BLOOD COUNT AND DIFFERENTIAL; Future - COMPREHENSIVE METABOLIC PANEL; Future - C-REACTIVE PROTEIN; Future - CALPROTECTIN,FECAL - COMPLETE BLOOD COUNT AND DIFFERENTIAL; Future - C-REACTIVE PROTEIN; Future Latest Ref Rn 11/11/2024 WBC 3.70 - 11.00 k/uL 9.47 RBC 3.90 - 5.20 m/uL 4.68 Hemoglobin 11.5 - 15.5 g/dL 14.2 Hematocrit 36.0 - 46.0 % 42.0 MCV 80.0 - 100.0 fL 89.7 MCH 26.0 - 34.0 pg 30.3 MCHC 30.5 - 36.0 g/dL 33.8 RDW-CV 11.5 - 15.0 % 11.8 Platelet Count 150 - 400 k/uL 320 MPV 9.0 - 12.7 fL 10.3 Neut% % 66.6 Abs Neut (ANC) 1.45 - 7.50 k/uL 6.30 Lymph% % 26.9 Abs Lymph 1.00 - 4.00 k/uL 2.55 [place]% % 5.3 Abs [place] <0.87 k/uL 0.50 Eosin% % 0.6 Abs Eosin <0.46 k/uL 0.06 Baso% % 0.3 Abs Baso <0.11 k/uL 0.03 Immature Gran % % 0.3 IMMATURE GRANS (ABS) <0.10 k/uL 0.03 NRBC /100 WBC 0.0 Absolute nRBC <0.01 k/uL <0.01 DTYPE Auto Glucose 74 - 99 mg/dL 108 (H) BUN 7 - 21 mg/dL 15 Creatinine 0.58 - 0.96 mg/dL 0.88 Sodium 136 - 144 mmol/L 137 Potassium 3.7 - 5.1 mmol/L 4.3 Chloride 98 - 107 mmol/L 101 CO2 22 - 30 mmol/L 26 Anion Gap 8 - 15 mmol/L 10 Calcium 8.5 - 10.2 mg/dL 9.7 eGFR >=60 mL/min/1.73m? 79 Albumin 3.9 - 4.9 g/dL 4.3 Bilirubin, Total 0.2 - 1.3 mg/dL 0.2 Bilirubin, Direct <0.3 mg/dL <0.1 Alkaline Phosphatase 34 - 123 U/L 107 AST 13 - 35 U/L 23 ALT 7 - 38 U/L 44 (H) Protein, Total 6.3 - 8.0 g/dL 7.3 Lipase 16 - 61 U/L 38 Legend: (H) High Current Outpatient Medications Medication Sig SKYRIZI 360 mg/2.4 mL (150 mg/mL) wearable injector INSERT 1 CARTRIDGE INTO ON-BODY INJECTOR AND INJECT 360 MG UNDER THE SKIN EVERY 8 WEEKS polyethylene glycol 3350 17 gram packet Take 17 g by mouth once daily. traZODone (DESYREL) 100 mg tablet Take 100 mg by mouth at bedtime as needed. For Insomnia venlafaxine ER (EFFEXOR XR) 75 mg 24 hr capsule Take 75 mg by mouth once daily. montelukast (SINGULAIR) 10 mg tablet Take 1 tablet by mouth once daily. albuterol HFA (PROVENTIL HFA, VENTOLIN HFA) 90 mcg/actuation inhaler Inhale 2 Puffs as instructed every 6 hours. baclofen 10 mg tablet Take 10 mg by mouth three times a day. (Patient not taking: Reported on 11/14/2024) iv contrast (will be provided with radiology test) CT Enterography W Inject, intravenously, once for 1 dose.No IV access, insert saline lock prior to the beginning of sedation, infusion, injection of imaging exam. Discontinue saline lock post exam. If Pt. has a central line or IVAD, may access for administration according to line specific nursing protocol. Once exam (more content not included)... [facility] 11-14-2024 History of Present illness Narrative CHIEF COMPLAINT: Patient presents with: ER F/U: Crohns HPI Callie Kennedy is a 54 year old female here today for ER F/U (Crohns ) Patient tells me that she has been in a flare in her Crohn's since last Tuesday. Notes severe lower abdominal pain with numbness in the area now. Pain is continuing to worsen. Sharp in the RLQ pain. Patient is visibly uncomfortable today. Notes she was having watery diarrhea but this has subsided. Does think its due to not eating. No rectal bleeding. Tolerating Skyrizi however doesn't believe it is working. States this is her third flare in [address] abd/pelvis 11/11/2024: IMPRESSION: No acute bowel inflammation. Last OV with Dr. Parmar 03/16/2024: ASSESSMENT: 1. Crohn's disease of colon without complication (HCC) -Beginning Skyrizi next week -Check labs in April 23, 2024 week and Jun 22, 2024 week -She should obtain the hepatitis A, Hepatitis B vaccination series -She should also obtain the shingrix and pneumovax vaccinations due to her immunocompromised state even though she is not 67, these are recommended by the IBD societies given that she is on a biologic immunosuppressant for IBD -We discussed flu vaccination. She has an allergy and was told never to get it again - We discussed COVID 19 vaccination/booster recommendations to obtain this and she will think about this. - COMPLETE BLOOD COUNT AND DIFFERENTIAL; Future - COMPREHENSIVE METABOLIC PANEL; Future - C-REACTIVE PROTEIN; Future - CALPROTECTIN,FECAL - COMPLETE BLOOD COUNT AND DIFFERENTIAL; Future - COMPREHENSIVE METABOLIC PANEL; Future - C-REACTIVE PROTEIN; Future 2. History of pulmonary embolus during Consult to hematology (+) FHX of hypercoagulable state in sister - CONSULT TO HEMATOLOGY/ONCOLOGY; Future - COMPLETE BLOOD COUNT AND DIFFERENTIAL; Future - COMPREHENSIVE METABOLIC PANEL; Future - C-REACTIVE PROTEIN; Future - CALPROTECTIN,FECAL - COMPLETE BLOOD COUNT AND DIFFERENTIAL; Future - C-REACTIVE PROTEIN; Future 3. Family history of hypercoagulable state Sister has factor V leiden and lupus anticoagulant Patient had bilateral PE during and has h/o IBD - CONSULT TO HEMATOLOGY/ONCOLOGY; Future - COMPLETE BLOOD COUNT AND DIFFERENTIAL; Future - COMPREHENSIVE METABOLIC PANEL; Future - C-REACTIVE PROTEIN; Future - CALPROTECTIN,FECAL - COMPLETE BLOOD COUNT AND DIFFERENTIAL; Future - C-REACTIVE PROTEIN; Future Latest Ref Rng 11/11/2024 WBC 3.70 - 11.00 k/uL 9.47 RBC 3.90 - 5.20 m/uL 4.68 Hemoglobin 11.5 - 15.5 g/dL 14.2 Hematocrit 36.0 - 46.0 % 42.0 MCV 80.0 - 100.0 fL 89.7 MCH 26.0 - 34.0 pg 30.3 MCHC 30.5 - 36.0 g/dL 33.8 RDW-CV 11.5 - 15.0 % 11.8 Platelet Count 150 - 400 k/uL 320 MPV 9.0 - 12.7 fL 10.3 Neut% % 66.6 Abs Neut (ANC) 1.45 - 7.50 k/uL 6.30 Lymph% % 26.9 Abs Lymph 1.00 - 4.00 k/uL 2.55 [place]% % 5.3 Abs [place] <0.87 k/uL 0.50 Eosin% % 0.6 Abs Eosin <0.46 k/uL 0.06 Baso% % 0.3 Abs Baso <0.11 k/uL 0.03 Immature Gran % % 0.3 IMMATURE GRANS (ABS) <0.10 k/uL 0.03 NRBC /100 WBC 0.0 Absolute nRBC <0.01 k/uL <0.01 DTYPE Auto Glucose 74 - 99 mg/dL 108 (H) BUN 7 - 21 mg/dL 15 Creatinine 0.58 - 0.96 mg/dL 0.88 Sodium 136 - 144 mmol/L 137 Potassium 3.7 - 5.1 mmol/L 4.3 Chloride 98 - 107 mmol/L 101 CO2 22 - 30 mmol/L 26 Anion Gap 8 - 15 mmol/L 10 Calcium 8.5 - 10.2 mg/dL 9.7 eGFR >=60 mL/min/1.73m 79 Albumin 3.9 - 4.9 g/dL 4.3 Bilirubin, Total 0.2 - 1.3 mg/dL 0.2 Bilirubin, Direct <0.3 mg/dL <0.1 Alkaline Phosphatase 34 - 123 U/L 107 AST 13 - 35 U/L 23 ALT 7 - 38 U/L 44 (H) Protein, Total 6.3 - 8.0 g/dL 7.3 Lipase 16 - 61 U/L 38 Legend: (H) High Current Outpatient Medications Medication Sig SKYRIZI 360 mg/2.4 mL (150 mg/mL) wearable injector INSERT 1 CARTRIDGE INTO ON-BODY INJECTOR AND INJECT 360 MG UNDER THE SKIN EVERY 8 WEEKS polyethylene glycol 3350 17 gram packet Take 17 g by mouth once daily. traZODone (DESYREL) 100 mg tablet Take 100 mg by mouth at bedtime as needed. For Insomnia venlafaxine ER (EFFEXOR XR) 75 mg 24 hr capsule Take 75 mg by mouth once daily. montelukast (SINGULAIR) 10 mg tablet Take 1 tablet by mouth once daily. albuterol HFA (PROVENTIL HFA, VENTOLIN HFA) 90 mcg/actuation inhaler Inhale 2 Puffs as instructed every 6 hours. baclofen 10 mg tablet Take 10 mg by mouth three times a day. (Patient not taking: Reported on 11/14/2024) iv contrast (will be provided with radiology test) CT Enterography W Inject, intravenously, once for 1 dose.No IV access, insert saline lock prior to the beginning of sedation, infusion, injection of imaging exam. Discontinue saline lock post exam. If Pt. has a central line or IVAD, may access for administration according to line specific nursing protocol. Once exam is complete flush line and de-access according to line specific nursing protocol in the CT contrast administration guidelines link. (Patient not taking: Reported on 11/14/2024) enteric contrast (will be provided with radiology test) For CT ENTEROGRAPHY W IVCON order Administer, As Directed One Time Only, via Oral, Rectal, both Oral and Rectal, Enteric Tube, Stoma or Indwelling Catheter, Enteric Contrast as designated per enteric contrast guidelines. (Patient not taking: Reported on 11/14/2024) No current facility-administered medications for this visit. ALLERGIES Allergen Reactions Hydroquinone Anaphylaxis Codeine GI Upset Gadoterate Meglumine Unknown Humira [Adalimumab] Hives Stelara [Ustekinuma* Shortness of Breath Social History Tobacco Use Smoking status: Former Current packs/day: 0.00 Average packs/day: 1 pack/day for 10.0 years (10.0 ttl pk-yrs) Types: Cigarettes Start date: 07/11/1994 Quit date: 07/11/2004 Years since quittin.3 Smokeless tobacco: Never Vaping Use Vaping status: Never Used Substance Use Topics Alcohol use: Yes Comment: rarely Drug use: No PAST MEDICAL HISTORY Diagnosis Date Anxiety state, unspecified Breast mass RIGHT BREAST, x3 removed at [facility] all with benign results DVT (deep vein thrombosis) in (HCC) Endometriosis Endometriosis Enlarged lymph nodes in armpit RIGHT Fibroids Irritable bowel syndrome 02/24/2021 Other and unspecified ovarian cyst Pain in joint, pelvic region and thigh pelvic pain 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 Had thoracic outlet decompression surgery on the right in 2017 PMH - PAST MEDICAL HISTORY OF right shoulder work injury, resolving with Physical Therapy and pain management Pulmonary embolism (HCC) 06/06/2001 sister has a clotting disorder but patient wasn't tested. This occured when she was on bedrest with twins developed bilateral DVT, then PE. Was on heparin until they were born (delivered at 30 weeks) was on an oral blood thinner for six months and then was taken off Regional enteritis of unspecified site Crohn disease Sleep apnea TOS (thoracic outlet syndrome) Ulcerative colitis (HCC) PAST SURGICAL HISTORY Procedure Laterality Date DELIVERY ONLY 02/27/2002 emergency section for 30wk gest twins COLONOSCOPY 02/08/2020 MINIMAL ACTIVE COLITIS descending colon, tortuous colon, int hemorrhoids COLONOSCOPY 02/13/2024 EGD 06/01/2022 gastritis, Claudia-Arevalo tear, neg H Pylori EGD W/O [facility] SPEC VARICIES INJ 02/13/2024 EXC CYST/ABERRANT BREAST TISSUE OPEN 1/> LESION 04/25/2009 RIGHT with benign results EXC CYST/ABERRANT BREAST TISSUE OPEN 1/> LESION 04/25/2009 RIGHT with benign results EXCISE LYMPH NODE 04/25/2009 RIGHT with benign results LAPS ABD PRTM&OMENTUM DX W/WO SPEC BR/WA SPX 05/12/2001 Dr. Jasso, Endo, stage 4 LAPS ABD PRTM&OMENTUM DX W/WO SPEC BR/WA SPX 06/19/1999 Dr. Jasso, endometriosis LAPS ABD PRTM&OMENTUM DX W/WO SPEC BR/WA SPX 1997 Dr. Moralez, [place] She found endo (1st dx. of endo) LAPS ABD PRTM&OMENTUM DX W/WO SPEC BR/WA SPX 08/07/2004 Dr. Jasso. Dx. L'scopy, RIGHT ovarian cystectomy, lysis of adhesions, rigid proctoscopy. (for RIGHT ovarian cyst, stage IV endometriosis LAPS ABD PRTM&OMENTUM DX W/WO SPEC BR/WA SPX 05/12/2001 Dr. Hussain Jasso.OPERATION: Diagnostic laparoscopy, resection of bilateral endometriomas, and lysis of adhesions LAPS ABD PRTM&OMENTUM DX W/WO SPEC BR/WA SPX 06/17/1999 Dr. Hussain Jasso. OPERATION: Laparoscopic excision of endometriosis. LAPS ABD PRTM&OMENTUM DX W/WO SPEC BR/WA SPX 06/17/1999 Dr. Payton OPERATION: Excision of rectal endometriosis, mobilization of the rectum and rigid sigmoidoscopy. ORTHOPEDICS SURGERY HX Right 12/13/2018 artoroscopic rt shoulder PAST SURGICAL HISTORY OF age 4 umbillical hernia PAST SURGICAL HISTORY OF breast cysts x3 surgeries PAST SURGICAL HISTORY OF 12/2006 TRIGGER FINGER RELEASE RIGHT HAND PECTORALIS MINOR TENDON RELEASE (COMP CODE [id number]) Right RIB RESECTION TOTAL Right SHOULDER ARTHROSCOPY/SURGERY Right 12/13/2018 Dr Hernandez, repair labrum tear SHOULDER SURGERY HX Right 12/13/2017 FAMILY HISTORY Problem Relation Age of Onset Diabetes Maternal Grandfather Cancer Maternal Grandmother Breast Cancer Paternal Grandmother unaware of history, pt.is Colon Cancer Paternal Grandfather Heart Mother Heart Father Breast Cancer Sister 04/2009 pt dx after,nipple discharge ,color change, most recedtly stopped breast feeding, tx plan, started pending pathology REVIEW OF SYSTEMS Review of Systems Constitutional: Positive for fatigue. Gastrointestinal: Positive for abdominal distention, abdominal pain, blood in stool, diarrhea and nausea. Change in Bowel Habits, Gas All other systems reviewed and are negative. PHYSICAL EXAM BP 110/72 Pulse 89 Ht 5' 6" (1.68m) Wt 150 lb 1.6 oz (68.1kg) LMP 03/07/2010 BMI 24.24 kg/(m^2). Physical Exam Constitutional: Appearance: Normal appearance. She is normal weight. HENT: Head: Normocephalic and atraumatic. Eyes: General: No scleral icterus. Extraocular Movements: Extraocular movements intact. Conjunctiva/sclera: Conjunctivae normal. Pupils: Pupils are equal, round, and reactive to light. Cardiovascular: Rate and Rhythm: Normal rate and regular rhythm. Pulses: Normal pulses. Heart sounds: Normal heart sounds. Pulmonary: Effort: Pulmonary effort is normal. Breath sounds: Normal breath sounds. Abdominal: General: Abdomen is flat. Bowel sounds are normal. Palpations: Abdomen is soft. Tenderness: There is abdominal tenderness (significant RLQ TTP). Musculoskeletal: General: Normal range of motion. Cervical back: Normal range of motion and neck supple. Skin: General: Skin is warm and dry. Coloration: Skin is not jaundiced. Neurological: General: No focal deficit present. Mental Status: She is alert and oriented to person, place, and time. Psychiatric: Mood and Affect: Mood normal. Behavior: Behavior normal. Thought Content: Thought content normal. Judgment: Judgment normal. Assessment/Plan (K50.10) Crohn's disease of large intestine without complication (HCC) (primary encounter diagnosis) (R20.0) Numbness 1. Crohn's disease of large intestine without complication (HCC) (Primary) -- Patient presenting with severe RLQ abdominal pain, concern for Chron's flare. Was seen in the ER on 11/11 however pain continues to worsen. -- Currently on Skyrizi however doesn't believe it is helping. Third flare in 8 weeks per patient. Will send message to Dr. Parmar. -- Recommend ER evaluation due to worsening, severe RLQ pain with new numbness in thigh and buttocks. -- Will give Prednisone taper to start once cleared by ER - predniSONE (DELTASONE) 5 mg tablet; Take 8 tablets by mouth once daily for 7 days, THEN 7 tablets once daily for 7 days, THEN 6 tablets once daily for 7 days, THEN 5 tablets once daily for 7 days, THEN 4 tablets once daily for 7 days, THEN 3 tablets once daily for 7 days, THEN 2 tablets once daily for 7 days, THEN 1 tablet once daily for 7 days. Dispense: 252 tablet; Refill: 0 2. Numbness -- Recommend ER evaluation due to worsening, severe RLQ pain with new numbness in thigh and buttocks. Follow up in office PRN. Recommended to please call office/go to ER if fever, chills, chest pain, SOB, diarrhea, nausea, emesis, worsening abdominal pain, dehydration occurs I spent a total of 15 minutes on the date of the service which included preparing to see the patient, [id number] patient care, completing clinical documentation, obtaining and/or reviewing separately obtained history, performing a medically appropriate examination, counseling and educating the patient/family/caregiver, and ordering medications, tests, or procedures. Liz Avery PA-C November 14, 2024 2:01 PM documented in this encounter [facility] 11-07-2024 Telephone encounter Note [facility] 03/16/24 Patient phones requesting refills as follows: Requested Prescriptions Pending Prescriptions Disp Refills SKYRIZI 360 mg/2.4 mL (150 mg/mL) wearable injector [Pharmacy Med Name: SKYRIZI CARTRIDGE 360MG/2.4M] 2 Sig: INSERT 1 CARTRIDGE INTO ON-BODY INJECTOR AND INJECT 360 MG UNDER THE SKIN EVERY 8 WEEKS PA approved through 05/29/25 Please review and advise. Tracy Cyr RN [facility] 11-07-2024 Miscellaneous Notes [facility] 03/16/24 Patient phones requesting refills as follows: Requested Prescriptions Pending Prescriptions Disp Refills SKYRIZI 360 mg/2.4 mL (150 mg/mL) wearable injector [Pharmacy Med Name: SKYRIZI CARTRIDGE 360MG/2.4M] 2 Sig: INSERT 1 CARTRIDGE INTO ON-BODY INJECTOR AND INJECT 360 MG UNDER THE SKIN EVERY 8 WEEKS PA approved through 05/29/25 Please review and advise. Tracy Cyr RN documented in this encounter [facility] 10-03-2024 Emergency department Note [facility] ED eMERGENCY dEPARTMENT eNCOUnter Pt Name: Callie Kennedy Birthdate 1970 Date of evaluation: 10/03/2024 Provider: Keri Carroll PA-C CHIEF COMPLAINT Chief Complaint Patient presents with Fall Pt c/o fall on Tuesday. C/o right hip pain. States that there is bruising. States that pain is radiating down her leg and up her back. Pt ambulatory in triage. HISTORY OF PRESENT ILLNESS (Location/Symptom, Timing/Onset,Context/Setting, Quality, Duration, Modifying Factors, Severity) Note limiting factors. HPI Callie Kennedy is a 54 y.o. female who presents to the emergency department stating that she fell approximately 5 feet and hit her right leg on a dumpster on Tuesday. Patient states she had jumped down from where she was standing and lost her footing. She states the pain and bruising seems to be getting worse instead of better. She took some Tylenol with no relief. Nursing Notes were reviewed. REVIEW OF SYSTEMS (2+ for4; 10+ for level 5) Review of Systems Constitutional: Negative for chills and fever. HENT: Negative for ear pain and sore throat. Eyes: Negative for pain and visual disturbance. Respiratory: Negative for cough and shortness of breath. Cardiovascular: Negative for chest pain and palpitations. Gastrointestinal: Negative for abdominal pain and vomiting. Genitourinary: Negative for dysuria and hematuria. Musculoskeletal: Negative for arthralgias and back pain. Injury right thigh Skin: Negative for color change and rash. Neurological: Negative for seizures and syncope. All other systems reviewed and are negative. PAST MEDICAL HISTORY Past Medical History: Diagnosis Date Asthma Brachial plexus disorders DVT (deep vein thrombosis) in Neck sprain Pulmonary embolism ([facility]) 2001 Shoulder sprain Ulcerative (chronic) enterocolitis (CMS/HCC) ([facility]) SURGICALHISTORY Past Surgical History: Procedure Laterality Date ANTERIOR COMPART[place] APPENDECTOMY BREAST LUMPECTOMY 1991 x3 SECTION (HISTORICAL) 02/27/2002 twins ESOPHAGOGASTRODUODENOSCOPY N/A 06/01/2022 Dr Dejesus [facility] HYSTERECTOMY 03/23/2010 Louisa @ [facility] LAPAROSCOPY DIAGNOSTIC / BIOPSY / ASPIRATION / LYSIS 2004 [id number] Dr. Jasso @ [facility] & Dr. Jarvis @ [place], [place] SHOULDER ARTHROSCOPY Right 12/13/2018 Dr. Hernandez @ [facility] SHOULDER SURGERY Right 11/23/2019 RT shoulder manipulation Under Anes, SHRUTI @ [facility] TENDON RELEASE 05/28/[address] Patel @ [facility] TRIGGER FINGER RELEASE Right 2006 [facility] CURRENT MEDICATIONS Previous Medications ALBUTEROL 108 (90 BASE) MCG/ACT INHALER Inhale 2 puffs 4 times daily as needed. FLUTICASONE (FLONASE) 50 MCG/ACT NASAL SPRAY Administer 1 spray into each nostril daily. Shake gently. Before first use, prime pump. After use, clean tip and replace cap. LACTOBACILLUS RHAMNOSUS, GG, ( PROBIOTIC DIGESTIVE CARE) CAPSULE Take 1 capsule by mouth in the morning. MONTELUKAST (SINGULAIR) 10 MG TABLET Take 10 mg by mouth daily. PANTOPRAZOLE (PROTONIX) 40 MG EC TABLET Take 1 tablet (40 mg) by mouth every morning (before breakfast). Do not crush, chew, or split. Do not start before June 04, 2022. TRAZODONE (DESYREL) 100 MG TABLET Take 100 mg by mouth Nightly as needed. VENLAFAXINE XR (EFFEXOR XR) 75 MG 24 HR CAPSULE Take 75 mg by mouth daily. Alera [hydroquinone], Cortisone, and Codeine FAMILY HISTORY Family History Problem Relation Name Age of Onset Heart disease Father Arthritis Mother Heart disease Mother SOCIAL HISTORY Social History Socioeconomic History Marital status: Tobacco Use Smoking status: Former Smokeless tobacco: Never Vaping Use Vaping status: Never Used Substance and Sexual Activity Alcohol use: Not Currently Drug use: Never Social Drivers of Health Food Insecurity: No Food Insecurity (02/10/2020) Received from [facility] Hunger Vital Sign Worried About Running Out of Food in the Last Year: Never true Ran Out of Food in the Last Year: Never true Transportation Needs: No Transportation Needs (02/10/2020) Received from [facility] PRAPARE - Transportation Lack of Transportation (Medical): No Lack of Transportation (Non-Medical): No Housing Stability: Low Risk (05/31/2022) Housing Stability Vital Sign Unable to Pay for Housing in the Last Year: No Number of Places Lived in the Last Year: 1 Unstable Housing in the Last Year: No SCREENINGS PHYSICAL EXAM (5+ for level 4, 8+ for level 5) @EDTRIAGEVSS@ Physical Exam Vitals and nursing note reviewed. Constitutional: General: She is not in acute distress. Appearance: Normal appearance. She is well-developed. HENT: Head: Normocephalic and atraumatic. Eyes: Conjunctiva/sclera: Conjunctivae normal. Cardiovascular: Rate and Rhythm: Normal rate and regular rhythm. Heart sounds: No murmur heard. Pulmonary: Effort: Pulmonary effort is normal. No respiratory distress. Breath sounds: Normal breath sounds. Musculoskeletal: Comments: Examination of the right leg does reveal a large hematoma to the right upper outer thigh region. She has tenderness on palpation of this area but no significant soft tissue edema. Her gait was easy and steady with a very slight limp on the right leg. Skin: General: Skin is warm and dry. Neurological: Mental Status: She is alert and oriented to person, place, and time. Psychiatric: Mood and Affect: Mood normal. Behavior: Behavior normal. DIAGNOSTIC RESULTS EKG (Per Emergency Physician): RADIOLOGY (Per EmergencyPhysician): Interpretation per the Radiologist below, if available at the time of this note: @EDRISRSLT@ : Labs Reviewed - No data to display All other labs were within normal range or not returned as of this dictation. EMERGENCY DEPARTMENT COURSE and DIFFERENTIALDIAGNOSIS/MDM: Vitals: Vitals: 10/03/24 2233 10/03/24 2234 BP: 135/86 Pulse: 86 Resp: 17 Temp: 36.7 C (98 F) TempSrc: Temporal SpO2: 100% Weight: 68 kg (150 lb) Height: 1.676 m (5' 6") Medications naproxen (Naprosyn) tablet 500 mg (has no administration in time range) Medical Decision Making Problems Addressed: Hematoma and contusion: complicated acute illness or injury Amount and/or Complexity of Data Reviewed Radiology: ordered. Risk Prescription drug management. Patient presents to the emergency department complaining of an injury to the right upper leg when she jumped from a height of about 5 feet and missed landed striking her right hip/thigh area on a metal dumpster. Patient states injury occurred on Tuesday. She tried some Tylenol with no relief. Differential diagnosis includes right hip fracture, right leg contusion, hematoma Chronic conditions impacting care: Asthma, DVT, ulcerative enterocolitis, PE, brachial plexus disorder Social determinants affecting health: Reformed smoker ED diagnostics included an x-ray of the right hip. Per radiologist review, no acute findings were made. ED medications included Naprosyn p.o. External medical records reviewed: None Patient will be discharged home. She is given home-going instruction on contusion and hematoma. She can apply warm compresses to the area. I will send a prescription for Naprosyn to her local pharmacy. She can rest the area when able. She can follow-up with her primary care physician/practitioner. Patient expressed an understanding of verbal instruction and had no further questions at the time of discharge. This patient was seen by myself, within my scope of practice, with the Emergency Department physician available for consultation at all times if needed. CONSULTS: None PROCEDURES: Unless otherwise noted below, none Procedures Patients symptoms are consistent with sepsis, severe sepsis, or septic shock (If yes use ".sepsiscoremeasure"): No FINAL IMPRESSION 1. Hematoma and contusion DISPOSITION/PLAN DISPOSITION Discharge 10/03/2024 11:50:00 PM PATIENT REFERRED TO: Milana Powers [facility] [phone] Schedule an appointment as soon as possible for a visit in 1 week DISCHARGE MEDICATIONS: New Prescriptions NAPROXEN (NAPROSYN) 500 MG TABLET Take 1 tablet (500 mg) by mouth 2 times daily as needed for mild pain (1-3) for up to 15 days. @[facility]([id number]:LAST:1)@ (Please note: Portions of this note were completed with a voice recognition program. Efforts were made to edit thedictations but occasionally words and phrases are mis-transcribed.) Form [id number] Keri Carroll PA-C (electronically signed) Emergency Medicine Provider Keri Carroll PA-C 10/03/24 [id number] documented in this encounter [facility] 10-03-2024 Physician Emergency department Note [facility] ED eMERGENCY dEPARTMENT eNCOUnter Pt Name: Callie Kennedy Birthdate 1970 Date of evaluation: 10/03/2024 Provider: Keri Carroll PA-C CHIEF COMPLAINT Chief Complaint Patient presents with Fall Pt c/o fall on Tuesday. C/o right hip pain. States that there is bruising. States that pain is radiating down her leg and up her back. Pt ambulatory in triage. HISTORY OF PRESENT ILLNESS (Location/Symptom, Timing/Onset,Context/Setting, Quality, Duration, Modifying Factors, Severity) Note limiting factors. PRISCILLA Kennedy is a 54 y.o. female who presents to the emergency department stating that she fell approximately 5 feet and hit her right leg on a dumpster on Tuesday. Patient states she had jumped down from where she was standing and lost her footing. She states the pain and bruising seems to be getting worse instead of better. She took some Tylenol with no relief. Nursing Notes were reviewed. REVIEW OF SYSTEMS (2+ for4; 10+ for level 5) Review of Systems Constitutional: Negative for chills and fever. HENT: Negative for ear pain and sore throat. Eyes: Negative for pain and visual disturbance. Respiratory: Negative for cough and shortness of breath. Cardiovascular: Negative for chest pain and palpitations. Gastrointestinal: Negative for abdominal pain and vomiting. Genitourinary: Negative for dysuria and hematuria. Musculoskeletal: Negative for arthralgias and back pain. Injury right thigh Skin: Negative for color change and rash. Neurological: Negative for seizures and syncope. All other systems reviewed and are negative. PAST MEDICAL HISTORY Past Medical History: Diagnosis Date Asthma Brachial plexus disorders DVT (deep vein thrombosis) in Neck sprain Pulmonary embolism (HCC) 2001 Shoulder sprain Ulcerative (chronic) enterocolitis (CMS/HCC) (HCC) SURGICALHISTORY Past Surgical History: Procedure Laterality Date ANTERIOR COMPART[place] APPENDECTOMY BREAST LUMPECTOMY 1990 x3 SECTION (HISTORICAL) 02/27/2002 twins ESOPHAGOGASTRODUODENOSCOPY N/A 06/01/2022 Dr Dejesus [facility] HYSTERECTOMY 03/23/2010 Louisa @ [facility] LAPAROSCOPY DIAGNOSTIC / BIOPSY / ASPIRATION / LYSIS 2003 [phone] Dr. Jasso @ [facility] & Dr. Jarvis @ [place], [place] SHOULDER ARTHROSCOPY Right 12/13/2018 Dr. Hernandez @ [facility] SHOULDER SURGERY Right 11/23/2019 RT shoulder manipulation Under Anes, K @ [facility] TENDON RELEASE 05/28/[address] Patel @ [facility] TRIGGER FINGER RELEASE Right 2006 [facility] CURRENT MEDICATIONS Previous Medications ALBUTEROL 108 (90 BASE) MCG/ACT INHALER Inhale 2 puffs 4 times daily as needed. FLUTICASONE (FLONASE) 50 MCG/ACT NASAL SPRAY Administer 1 spray into each nostril daily. Shake gently. Before first use, prime pump. After use, clean tip and replace cap. LACTOBACILLUS RHAMNOSUS, GG, ( PROBIOTIC DIGESTIVE CARE) CAPSULE Take 1 capsule by mouth in the morning. MONTELUKAST (SINGULAIR) 10 MG TABLET Take 10 mg by mouth daily. PANTOPRAZOLE (PROTONIX) 40 MG EC TABLET Take 1 tablet (40 mg) by mouth every morning (before breakfast). Do not crush, chew, or split. Do not start before June 04, 2022. TRAZODONE (DESYREL) 100 MG TABLET Take 100 mg by mouth Nightly as needed. VENLAFAXINE XR (EFFEXOR XR) 75 MG 24 HR CAPSULE Take 75 mg by mouth daily. Alera [hydroquinone], Cortisone, and Codeine FAMILY HISTORY Family History Problem Relation Name Age of Onset Heart disease Father Arthritis Mother Heart disease Mother SOCIAL HISTORY Social History Socioeconomic History Marital status: Tobacco Use Smoking status: Former Smokeless tobacco: Never Vaping Use Vaping status: Never Used Substance and Sexual Activity Alcohol use: Not Currently Drug use: Never Social Drivers of Health Food Insecurity: No Food Insecurity (02/10/2020) Received from [facility] Hunger Vital Sign Worried About Running Out of Food in the Last Year: Never true Ran Out of Food in the Last Year: Never true Transportation Needs: No Transportation Needs (02/10/2020) Received from [facility] PRAPARE - Transportation Lack of Transportation (Medical): No Lack of Transportation (Non-Medical): No Housing Stability: Low Risk (05/31/2022) Housing Stability Vital Sign Unable to Pay for Housing in the Last Year: No Number of Places Lived in the Last Year: 1 Unstable Housing in the Last Year: No SCREENINGS PHYSICAL EXAM (5+ for level 4, 8+ for level 5) @EDTRIAGEVSS@ Physical Exam Vitals and nursing note reviewed. Constitutional: General: She is not in acute distress. Appearance: Normal appearance. She is well-developed. HENT: Head: Normocephalic and atraumatic. Eyes: Conjunctiva/sclera: Conjunctivae normal. Cardiovascular: Rate and Rhythm: Normal rate and regular rhythm. Heart sounds: No murmur heard. Pulmonary: Effort: Pulmonary effort is normal. No respiratory distress. Breath sounds: Normal breath sounds. Musculoskeletal: Comments: Examination of the right leg does reveal a large hematoma to the right upper outer thigh region. She has tenderness on palpation of this area but no significant soft tissue edema. Her gait was easy and steady with a very slight limp on the right leg. Skin: General: Skin is warm and dry. Neurological: Mental Status: She is alert and oriented to person, place, and time. Psychiatric: Mood and Affect: Mood normal. Behavior: Behavior normal. DIAGNOSTIC RESULTS EKG (Per Emergency Physician): RADIOLOGY (Per EmergencyPhysician): Interpretation per the Radiologist below, if available at the time of this note: @EDRISRSLT@ : Labs Reviewed - No data to display All other labs were within normal range or not returned as of this dictation. EMERGENCY DEPARTMENT COURSE and DIFFERENTIALDIAGNOSIS/MDM: Vitals: Vitals: 10/03/24 2233 10/03/24 2234 BP: 135/86 Pulse: 86 Resp: 17 Temp: 36.7 C (98 F) TempSrc: Temporal SpO2: 100% Weight: 68 kg (150 lb) Height: 1.676 m (5' 6") Medications naproxen (Naprosyn) tablet 500 mg (has no administration in time range) Medical Decision Making Problems Addressed: Hematoma and contusion: complicated acute illness or injury Amount and/or Complexity of Data Reviewed Radiology: ordered. Risk Prescription drug management. Patient presents to the emergency department complaining of an injury to the right upper leg when she jumped from a height of about 5 feet and missed landed striking her right hip/thigh area on a metal dumpster. Patient states injury occurred on Tuesday. She tried some Tylenol with no relief. Differential diagnosis includes right hip fracture, right leg contusion, hematoma Chronic conditions impacting care: Asthma, DVT, ulcerative enterocolitis, PE, brachial plexus disorder Social determinants affecting health: Reformed smoker ED diagnostics included an x-ray of the right hip. Per radiologist review, no acute findings were made. ED medications included Naprosyn p.o. External medical records reviewed: None Patient will be discharged home. She is given home-going instruction on contusion and hematoma. She can apply warm compresses to the area. I will send a prescription for Naprosyn to her local pharmacy. She can rest the area when able. She can follow-up with her primary care physician/practitioner. Patient expressed an understanding of verbal instruction and had no further questions at the time of discharge. This patient was seen by myself, within my scope of practice, with the Emergency Department physician available for consultation at all times if needed. CONSULTS: None PROCEDURES: Unless otherwise noted below, none Procedures Patients symptoms are consistent with sepsis, severe sepsis, or septic shock (If yes use ".sepsiscoremeasure"): No FINAL IMPRESSION 1. Hematoma and contusion DISPOSITION/PLAN DISPOSITION Discharge 10/03/2024 11:50:00 PM PATIENT REFERRED TO: Milana Grace Es Priya [facility] [id number] Schedule an appointment as soon as possible for a visit in 1 week DISCHARGE MEDICATIONS: New Prescriptions NAPROXEN (NAPROSYN) 500 MG TABLET Take 1 tablet (500 mg) by mouth 2 times daily as needed for mild pain (1-3) for up to 15 days. @[facility]([id number]:LAST:1)@ (Please note: Portions of this note were completed with a voice recognition program. Efforts were made to edit thedictations but occasionally words and phrases are mis-transcribed.) Form [id number] Keri Carroll PA-C (electronically signed) Emergency Medicine Provider Keri Carroll PA-C 10/03/24 1052 [facility] 07-13-2024 Telephone encounter Note Pt notified through my chart that we do not have all of her labs back yet. We will contact her as soon as we do. eNvaeh Carrera MA [facility] 07-13-2024 Miscellaneous Notes Pt notified through my chart that we do not have all of her labs back yet. We will contact her as soon as we do. Nevaeh Carrera MA Patient called in stating she has missed work all week due to a flair up. She had lab work done yesterday and is requesting a member of the clinical team to review it with her at the earliest convenience. documented in this encounter [facility] 07-13-2024 Telephone encounter Note Patient called in stating she has missed work all week due to a flair up. She had lab work done yesterday and is requesting a member of the clinical team to review it with her at the earliest convenience. [facility] 06-24-2024 Telephone encounter Note Please call Callie and advise her that her hypercoagulable workup, including - Activated protein C resistance, which screens for factor V Leiden mutation - Lupus anticoagulant - And other gene and protein studies Was negative. Therefore, there is no need to initiate any blood thinners surrounding her upcoming procedures. Thank you- please let me know if questions. [facility] Work Phone: 06-24-2024 Miscellaneous Notes Please call Callie and advise her that her hypercoagulable workup, including - Activated protein C resistance, which screens for factor V Leiden mutation - Lupus anticoagulant - And other gene and protein studies Was negative. Therefore, there is no need to initiate any blood thinners surrounding her upcoming procedures. Thank you- please let me know if questions. documented in this encounter [facility] 06-04-2024 Telephone encounter Note Thank you! [facility] 06-04-2024 Miscellaneous Notes Thank you! Addended by: ALIA PARMAR on: 06/04/2024 03:49 PM Modules accepted: Orders Skyrizi OBI prior authorization has been approved; however, due to insurance restrictions Rx must be filled at [facility]. If refill request approved, Rx will be sent to [facility] for processing. NOTE: Initial prior auth was completed by [facility] and expires on 05/29/25. Future PA renewals will be the responsibility of the provider's office. Requested Prescriptions Pending Prescriptions Disp Refills risankizumab-rzaa (SKYRIZI) 360 mg/2.4 mL (150 mg/mL) wearable injector 2.4 mL 2 Sig: Inject 360mg (1 cartridge) subcutaneously every 8 weeks. Start 4 weeks after the last infusion dose. Cecelia Grhaam, PharmD Clinical Pharmacist, [employer] [facility] ; Pool: P [facility] Pool #: [id number] documented in this encounter [facility] 06-04-2024 Note Addended by: ALIA PARMAR on: 06/04/2024 03:49 PM Modules accepted: Orders [facility] 05-29-2024 Telephone encounter Note Skyrizi OBI prior authorization has been approved; however, due to insurance restrictions Rx must be filled at [facility]. If refill request approved, Rx will be sent to [facility] for processing. NOTE: Initial prior auth was completed by [facility] and expires on 05/29/25. Future PA renewals will be the responsibility of the provider's office. Requested Prescriptions Pending Prescriptions Disp Refills risankizumab-rzaa (SKYRIZI) 360 mg/2.4 mL (150 mg/mL) wearable injector 2.4 mL 2 Sig: Inject 360mg (1 cartridge) subcutaneously every 8 weeks. Start 4 weeks after the last infusion dose. Cecelia Graham, PharmD Clinical Pharmacist, [employer] [facility] ; Pool: P [facility] Pool #: [id number] [facility] 05-28-2024 Telephone encounter Note Spoke with patient and she stated that the [facility] specialty pharmacy did not have her Skyrizi prescription. Advised that script is currently in process with the [facility] pharmacy. [facility] 05-28-2024 Miscellaneous Notes Spoke with patient and she stated that the [facility] specialty pharmacy did not have her Skyrizi prescription. Advised that script is currently in process with the [facility] pharmacy. documented in this encounter [facility] 05-21-2024 History of Present illness Narrative [facility] received prescription(s) for Skyrizi OBI from Ghulam's office. Benefits investigation was conducted, indicating that a prior authorization is required by patient's insurance plan with [employer]. Encounter will be updated once prior authorization has been submitted by [facility]. Lisa Tripp ([facility]) [facility] FAX: documented in this encounter [facility] 05-21-2024 Note HNO ID: [id number] Author: ?, ?, ? Service: ? Author Type: ? Type: Progress Notes Filed: 05/21/2024 10:01 Note Text: [facility] received prescription(s) for Skyrizi OBI from Ghulam's office. Benefits investigation was conducted, indicating that a prior authorization is required by patient's insurance plan with [facility]. Encounter will be updated once prior authorization has been submitted by [facility]. Lisa Tripp ([facility]) [facility] FAX: [facility] 05-21-2024 Note HNO ID: [id number] Author: NOEMY GRAHAM RPh Service: ? Author Type: Pharmacist Type: Progress Notes Filed: 05/29/2024 13:56 Note Text: Prior authorization was approved for Skyrizi OBI. Plan Name: FEP PA reference number: N/A Approval Dates: 04/29/24 - 05/29/25 However, s/he is required to use [facility] to fill this medication. Will queue prescription(s) to go to designated specialty pharmacy. For reference, their pharmacy phone number is [phone]. No further action by [facility]. Cecelia Graham PharmD Clinical Pharmacist, [employer] [facility] ; Pool: P [facility] Pool #: [id number] [facility] 05-21-2024 Note HNO ID: [id number] Author: NOEMY GRAHAM RPh Service: ? Author Type: Pharmacist Type: Progress Notes Filed: 05/29/2024 13:35 Note Text: Skyrizi OBI PA was initiated and pending review. Plan Name: FEP Plan Agent/Rico: [id number] / [id number] Timeline: Urgent Cecelia Graham PharmD Clinical Pharmacist, [employer] [facility] ; Pool: P [facility] Pool #: [id number] [facility] 05-08-2024 Instructions Rubén Mercado MD - 05/08/2024 11:19 AM EST Please present for blood work in [place] for hypercoagulable testing. You will be scheduled for a phone visit to review results. documented in this encounter [facility] 05-08-2024 Note HNO ID: [id number] Author: RUBÉN MERCADO MD Service: ? Author Type: Physician Type: Progress Notes Filed: 06/24/2024 02:29 Note Text: Name: Callie Kennedy Date of : 1970 Date of Service: May 08, 2024 Reason for Consultation: History of pulmonary embolism during and family history of thrombosis- concern for hypercoagulable state. Consultation requested by Dr. Alia Parmar for an opinion regarding Callie Kennedy. My final recommendations will be communicated back to the requesting physician by way of shared Medical record or letter to requesting physician via US mail. History of Present Illness: Ms. Callie Kennedy is a 54 year old woman with Crohn's disease on risankizumab-rzaa (Skyrizi), history of endometriosis s/p hysterectomy in 2009, history of bilateral lower extremity DVT, as well as pulmonary embolism diagnosed during , s/p warfarin after delivery for approximately 6 months, who presents in consultation for suspected hypercoagulable state. The patient has no other history of thrombosis, though she did have two spontaneous abortions in early . Her family history is notable in DVT in her sister, who was placed on anticoagulation for a given period of time. She recalls that her sister tested positive for factor V Leiden, elevated AMI-I and lupus anticoagulant. Today, Callie reports feeling well. She denies dyspnea or lower extremity edema. She believes hypercoagulable testing is needed per GI prior to future endoscopies. 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 Had thoracic outlet decompression surgery on the right in 2017 PMH - PAST MEDICAL HISTORY OF right shoulder work injury, resolving with Physical Therapy and pain management Pulmonary embolism (HCC) 06/06/2001 sister has a clotting disorder but patient wasn't tested. This occured when she was on bedrest with twins developed bilateral DVT, then PE. Was on heparin until they were born (delivered at 30 weeks) was on an oral blood thinner for six months and then was taken off Regional enteritis of unspecified site Crohn disease Sleep apnea TOS (thoracic outlet syndrome) Ulcerative colitis (HCC) PAST SURGICAL HISTORY Procedure Laterality Date DELIVERY ONLY 02/27/2002 emergency section for 30wk gest twins COLONOSCOPY 02/08/2020 MINIMAL ACTIVE COLITIS descending colon, tortuous colon, int hemorrhoids EGD 06/01/2022 gastritis, Claudia-Arevalo tear, neg H Pylori EXC CYST/ABERRANT BREAST TISSUE OPEN 1/> LESION 04/25/2009 RIGHT with benign results EXC CYST/ABERRANT BREAST TISSUE OPEN 1/> LESION 04/25/2009 RIGHT with benign results EXCISE LYMPH NODE 04/25/2009 RIGHT with benign results LAPS ABD PRTMANDOMENTUM DX W/WO SPEC BR/WA SPX 05/12/2001 Dr. Jasso, Endo, stage 4 LAPS ABD PRTMANDOMENTUM DX W/WO SPEC BR/WA SPX 06/19/1999 Dr. Jasso, endometriosis LAPS ABD PRTMANDOMENTUM DX W/WO SPEC BR/WA SPX 1997 Dr. Moralez, [place], [place] She found endo (1st dx. of endo) LAPS ABD PRTMANDOMENTUM DX W/WO SPEC BR/WA SPX 08/07/2004 Dr. Jasso. Dx. L'scopy, RIGHT ovarian cystectomy, lysis of adhesions, rigid proctoscopy. (for RIGHT ovarian cyst, stage IV endometriosis LAPS ABD PRTMANDOMENTUM DX W/WO SPEC BR/WA SPX 05/12/2001 Dr. Hussain Jasso.OPERATION: Diagnostic laparoscopy, resection of bilateral endometriomas, and lysis of adhesions LAPS ABD PRTMANDOMENTUM DX W/WO SPEC BR/WA SPX 06/17/1999 Dr. Hussain Jasso. OPERATION: Laparoscopic excision of endometriosis. LAPS ABD PRTMANDOMENTUM DX W/WO SPEC BR/WA SPX 06/17/1999 Dr. Payton OPERATION: Excision of rectal endometriosis, mobilization of the rectum and rigid sigmoidoscopy. ORTHOPEDICS SURGERY HX Right 12/13/2018 artoroscopic rt shoulder PAST SURGICAL HISTORY OF age 4 umbillical hernia PAST SURGICAL HISTORY OF breast cysts x3 surgeries PAST SURGICAL HISTORY OF 12/2006 TRIGGER FINGER RELEASE RIGHT HAND PECTORALIS MINOR TENDON RELEASE (COMP CODE [id number]) Right RIB RESECTION TOTAL Right SHOULDER ARTHROSCOPY/SURGERY Right 12/13/2018 Dr Hernandez, repair labrum tear SHOULDER SURGERY HX Right 12/13/2017 Current Outpatient Medications Medication Sig Dispense Refill baclofen 10 mg tablet Take 10 mg by mouth three times a day. polyethylene glycol 3350 17 gram packet Take 17 g by mouth once da (more content not included)... [facility] 05-08-2024 History of Present illness Narrative Images from the original note were not included. Name: Callie Kennedy Date of : 1970 Date of Service: May 08, 2024 Reason for Consultation: History of pulmonary embolism during and family history of thrombosis- concern for hypercoagulable state. Consultation requested by Dr. Alia Parmar for an opinion regarding Callie Kennedy. My final recommendations will be communicated back to the requesting physician by way of shared Medical record or letter to requesting physician via US mail. History of Present Illness: Ms. Callie Kennedy is a 54 year old woman with Crohn's disease on risankizumab-rzaa (Skyrizi), history of endometriosis s/p hysterectomy in 2009, history of bilateral lower extremity DVT, as well as pulmonary embolism diagnosed during , s/p warfarin after delivery for approximately 6 months, who presents in consultation for suspected hypercoagulable state. The patient has no other history of thrombosis, though she did have two spontaneous abortions in early . Her family history is notable in DVT in her sister, who was placed on anticoagulation for a given period of time. She recalls that her sister tested positive for factor V Leiden, elevated AMI-I and lupus anticoagulant. Today, Callie reports feeling well. She denies dyspnea or lower extremity edema. She believes hypercoagulable testing is needed per GI prior to future endoscopies. 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 Had thoracic outlet decompression surgery on the right in 2017 PMH - PAST MEDICAL HISTORY OF right shoulder work injury, resolving with Physical Therapy and pain management Pulmonary embolism (HCC) 06/06/2001 sister has a clotting disorder but patient wasn't tested. This occured when she was on bedrest with twins developed bilateral DVT, then PE. Was on heparin until they were born (delivered at 30 weeks) was on an oral blood thinner for six months and then was taken off Regional enteritis of unspecified site Crohn disease Sleep apnea TOS (thoracic outlet syndrome) Ulcerative colitis (HCC) PAST SURGICAL HISTORY Procedure Laterality Date DELIVERY ONLY 02/27/2002 emergency section for 30wk gest twins COLONOSCOPY 02/08/2020 MINIMAL ACTIVE COLITIS descending colon, tortuous colon, int hemorrhoids EGD 06/01/2022 gastritis, Claudia-Arevalo tear, neg H Pylori EXC CYST/ABERRANT BREAST TISSUE OPEN 1/> LESION 04/25/2009 RIGHT with benign results EXC CYST/ABERRANT BREAST TISSUE OPEN 1/> LESION 04/25/2009 RIGHT with benign results EXCISE LYMPH NODE 04/25/2009 RIGHT with benign results LAPS ABD PRTM&OMENTUM DX W/WO SPEC BR/WA SPX 05/12/2001 Dr. Jasso, Endo, stage 4 LAPS ABD PRTM&OMENTUM DX W/WO SPEC BR/WA SPX 06/19/1999 Dr. Jasso, endometriosis LAPS ABD PRTM&OMENTUM DX W/WO SPEC BR/WA SPX 1997 Dr. Moralez [place], [place] She found endo (1st dx. of endo) LAPS ABD PRTM&OMENTUM DX W/WO SPEC BR/WA SPX 08/07/2004 Dr. Jasso. Dx. L'scopy, RIGHT ovarian cystectomy, lysis of adhesions, rigid proctoscopy. (for RIGHT ovarian cyst, stage IV endometriosis LAPS ABD PRTM&OMENTUM DX W/WO SPEC BR/WA SPX 05/12/2001 Dr. Hussain Jasso.OPERATION: Diagnostic laparoscopy, resection of bilateral endometriomas, and lysis of adhesions LAPS ABD PRTM&OMENTUM DX W/WO SPEC BR/WA SPX 06/17/1999 Dr. Hussain Jasso. OPERATION: Laparoscopic excision of endometriosis. LAPS ABD PRTM&OMENTUM DX W/WO SPEC BR/WA SPX 06/17/1999 Dr. Payton OPERATION: Excision of rectal endometriosis, mobilization of the rectum and rigid sigmoidoscopy. ORTHOPEDICS SURGERY HX Right 12/13/2018 artoroscopic rt shoulder PAST SURGICAL HISTORY OF age 4 umbillical hernia PAST SURGICAL HISTORY OF breast cysts x3 surgeries PAST SURGICAL HISTORY OF 12/2006 TRIGGER FINGER RELEASE RIGHT HAND PECTORALIS MINOR TENDON RELEASE (COMP CODE [id number]) Right RIB RESECTION TOTAL Right SHOULDER ARTHROSCOPY/SURGERY Right 12/13/2018 Dr Hernandez, repair labrum tear SHOULDER SURGERY HX Right 12/13/2017 Current Outpatient Medications Medication Sig Dispense Refill baclofen 10 mg tablet Take 10 mg by mouth three times a day. polyethylene glycol 3350 17 gram packet Take 17 g by mouth once daily. iv contrast (will be provided with radiology test) CT Enterography W Inject, intravenously, once for 1 dose.No IV access, insert saline lock prior to the beginning of sedation, infusion, injection of imaging exam. Discontinue saline lock post exam. If Pt. has a central line or IVAD, may access for administration according to line specific nursing protocol. Once exam is complete flush line and de-access according to line specific nursing protocol in the CT contrast administration guidelines link. 1 Each 0 enteric contrast (will be provided with radiology test) For CT ENTEROGRAPHY W IVCON order Administer, As Directed One Time Only, via Oral, Rectal, both Oral and Rectal, Enteric Tube, Stoma or Indwelling Catheter, Enteric Contrast as designated per enteric contrast guidelines. 1 Each 0 traZODone (DESYREL) 100 mg tablet Take 100 mg by mouth at bedtime as needed. For Insomnia venlafaxine ER (EFFEXOR XR) 75 mg 24 hr capsule Take 75 mg by mouth once daily. montelukast (SINGULAIR) 10 mg tablet Take 1 tablet by mouth once daily. 90 tablet 3 albuterol HFA (PROVENTIL HFA, VENTOLIN HFA) 90 mcg/actuation inhaler Inhale 2 Puffs as instructed every 6 hours. 1 Inhaler 11 No current facility-administered medications for this visit. ALLERGIES Allergen Reactions Hydroquinone Anaphylaxis Codeine GI Upset Gadoterate Meglumine Unknown Humira [Adalimumab] Hives Stelara [Ustekinuma* Shortness of Breath FAMILY HISTORY Problem Relation Age of Onset Diabetes Maternal Grandfather Cancer Maternal Grandmother Breast Cancer Paternal Grandmother unaware of history, pt.is Colon Cancer Paternal Grandfather Heart Mother Heart Father Breast Cancer Sister 04/2009 pt dx after,nipple discharge ,color change, most recedtly stopped breast feeding, tx plan, started pending pathology Social History Tobacco Use Smoking status: Former Current packs/day: 0.00 Average packs/day: 1 pack/day for 10.0 years (10.0 ttl pk-yrs) Types: Cigarettes Start date: 07/11/1994 Quit date: 07/11/2004 Years since quittin.8 Smokeless tobacco: Never Vaping Use Vaping status: Never Used Substance Use Topics Alcohol use: Yes Comment: rarely Drug use: No Review of Systems: With pertinent positives and/or negatives as outlined above. Physical Exam: BP 145/81 Pulse 87 Temp (Src) 98.8 (Temporal Artery) Ht 5' 5.984" (1.68m) Wt 159 lb 2.8 oz (72.2kg) SpO2 98% LMP 03/07/2010 BMI 25.70 kg/(m^2). General: Alert, oriented, In no acute distress HEENT: No scleral icterus, oropharynx clear. Chest: Breath sounds clear to auscultation bilaterally, breathing not labored. Heart: Normal rate and regular rhythm. Abdomen: Soft, nontender, nondistended, bowel sounds present. Extremities: No edema. Skin: No rashes or petechiae. Psychiatric: Mood and thought content normal. Neurological: No focal deficit noted on screening neurological exam. Lymph: No palpable cervical or supraclavicular adenopathy. Laboratory Data: Latest Ref Rng & Units 12/21/2023 03/23/2024 04/17/2024 CBC WBC 3.70 - 11.00 k/uL 7.41 7.84 5.95 RBC 3.90 - 5.20 m/uL 4.78 4.35 4.17 Hemoglobin 11.5 - 15.5 g/dL 14.5 13.1 12.4 Hematocrit 36.0 - 46.0 % 44.2 39.1 37.0 MCV 80.0 - 100.0 fL 92.5 89.9 88.7 MCH 26.0 - 34.0 pg 30.3 30.1 29.7 MCHC 30.5 - 36.0 g/dL 32.8 33.5 33.5 RDW-CV 11.5 - 15.0 % 12.2 12.1 12.4 Platelet Count 150 - 400 k/uL 363 331 309 MPV 9.0 - 12.7 fL 10.8 10.8 10.2 Baso% % 0.5 0.5 0.8 Abs Neut (ANC) 1.45 - 7.50 k/uL 5.14 5.39 3.30 Abs Lymph 1.00 - 4.00 k/uL 1.76 1.83 2.12 Abs [place] <0.87 k/uL 0.41 0.52 0.43 Abs Eosin <0.46 k/uL 0.03 0.03 0.04 Abs Baso <0.11 k/uL 0.04 0.04 0.05 NRBC /100 WBC 0.0 0.0 0.0 Latest Ref Rng & Units 07/01/2023 12/21/2023 03/23/2024 CMP Sodium 136 - 144 mmol/L 140 142 141 Potassium 3.7 - 5.1 mmol/L 3.9 3.8 3.9 Chloride 98 - 107 mmol/L 104 101 105 CO2 22 - 30 mmol/L 31 27 26 Glucose 74 - 99 mg/dL 95 75 97 BUN 7 - 21 mg/dL 13 10 13 Creatinine 0.58 - 0.96 mg/dL 0.86 0.88 0.97 EGFR >=60 mL/min/1.73m 82 80 71 Protein, Total 6.3 - 8.0 g/dL 7.7 7.0 Albumin 3.9 - 4.9 g/dL 4.5 4.0 Calcium 8.5 - 10.2 mg/dL 9.0 9.5 9.3 Bilirubin, Total 0.2 - 1.3 mg/dL 0.3 <0.2 AST 13 - 35 U/L 21 16 ALT 7 - 38 U/L 18 12 Alkaline Phosphatase 34 - 123 U/L 120 103 Assessment and Plan:: 1. History of pulmonary embolus during 2. Family history of hypercoagulable state - I reviewed with Callie that her DVT and PE likely arose in the setting of , which in itself consists of a hypercoagulable state. The fact that she has not been diagnosed with any additional thrombosis in the last few decades off anticoagulation, supports lack of underlying hypercoagulability - Lupus anticoagulant is not typically an inherited hypercoagulable disorder, while factor V Leiden mutation, if heterozygous, does not warrant any intervention - For due diligence, I can send for hypercoagulable testing including - Activated protein C resistance/ factor V Leiden - Prothrombin gene mutation - Protein C activity, protein S activity, antithrombin activity - Lupus anticoagulant and antiphospholipid antibodies - AMI-I level is not considered clinically significant at this time for thrombosis - Patient will be scheduled for a phone visit to review above results when available. On the date of this encounter, I spent more than 40 minutes in reviewing pertinent data, examining patient, counseling regarding test results and treatment options, documenting and coordinating care. Rubén Mercado MD Hematology and Oncology [facility] documented in this encounter [facility] 04-09-2024 Telephone encounter Note Spoke with patient Cielo Roldan TESSY [facility] 04-09-2024 Miscellaneous Notes Spoke with patient Cielo Roldan TESSY This would not be typical for Skyrizi. Headache can occur in 4-7% of patients but nausea and loss of appetite are not typical. I have ordered for her to have blood work the week on 04/16/2024. She should obtain a few days before she gets the next infusion of skyrizi on 04/20/2024 Patient call, had her first Skyrizi infusion on 03/23. A few days later, she noted some loss of appetite, slight nausea after eating and headaches, has not yet resolved. Questioning, is this adjusting to the new medication, or anything to be concerned about? No rash, no fever, no rectal bleeding, just her "normal" abd cramping intermittently. Cielo Roldan CMA [facility] documented in this encounter [facility] 04-09-2024 Telephone encounter Note This would not be typical for Skyrizi. Headache can occur in 4-7% of patients but nausea and loss of appetite are not typical. I have ordered for her to have blood work the week on 04/16/2024. She should obtain a few days before she gets the next infusion of skyrizi on 04/20/2024 [facility] 04-09-2024 Telephone encounter Note Patient call, had her first Skyrizi infusion on 03/23. A few days later, she noted some loss of appetite, slight nausea after eating and headaches, has not yet resolved. Questioning, is this adjusting to the new medication, or anything to be concerned about? No rash, no fever, no rectal bleeding, just her "normal" abd cramping intermittently. Cielo Roldan CMA [facility] 03-25-2024 History of Present illness Narrative Images from the original note were not included. [facility] [address] [facility] [address] Dept: [phone] Dept Loc: [phone] Subjective Chief Complaint Patient presents with Sore Throat Hurts to swollen,Cough, Headache, x 3 days. Pt state she would like to have Strep test done today. Subjective HPI Callie Kennedy is a 53 y.o. year old female who presents with a sore throat and headache x 3 days. Denies any cough, congestion, or drainage. Denies fever, chest pain, shortness of breath, wheezing, abdominal pain, or nausea/vomiting/diarrhea. Has been taking Aleve cold/sinus. Requesting strep test today. Review of Systems Allergies Allergen Reactions Alera [Hydroquinone] Anaphylaxis Cortisone Shortness of breath Steroid injection in neck from pain management. Trouble breathing, body turned bright red. Gave her IV medication. [facility] [place], [place] Codeine Nausea Only, Other and Hives vomiting Current Outpatient Medications on File Prior to Visit Medication Sig Dispense Refill albuterol 108 (90 Base) MCG/ACT inhaler Inhale 2 puffs 4 times daily as needed. Lactobacillus Rhamnosus, GG, ( Probiotic Digestive Care) capsule Take 1 capsule by mouth in the morning. montelukast (Singulair) 10 MG tablet Take 10 mg by mouth daily. traZODone (Desyrel) 100 MG tablet Take 100 mg by mouth Nightly as needed. venlafaxine XR (Effexor XR) 75 MG 24 hr capsule Take 75 mg by mouth daily. [DISCONTINUED] fluticasone (Flonase) 50 MCG/ACT nasal spray Administer 1 spray into each nostril daily. pantoprazole (ProtoNix) 40 MG EC tablet Take 1 tablet (40 mg) by mouth every morning (before breakfast). Do not crush, chew, or split. Do not start before June 04, 2022. 30 tablet 0 No current facility-administered medications on file prior to visit. Patient Active Problem List Diagnosis Pneumonia due to COVID-19 virus Superior glenoid labrum lesion of right shoulder Adhesive capsulitis of right shoulder Other instability, right shoulder Colitis Social History Tobacco Use Smoking status: Former Smokeless tobacco: Never Substance Use Topics Alcohol use: Not Currently Objective Objective BP 132/77 (BP Location: Right arm, Patient Position: Sitting, BP Cuff Size: Adult) Pulse 97 Temp 36.6 C (97.9 F) (Infrared) Ht 5' 6" (1.676 m) Wt 156 lb (70.8 kg) SpO2 99% BMI 25.18 kg/m Physical Exam Vitals reviewed. Constitutional: General: She is not in acute distress. Appearance: Normal appearance. She is not ill-appearing, toxic-appearing or diaphoretic. HENT: Head: Normocephalic. Right Ear: Tympanic membrane, ear canal and external ear normal. Left Ear: Tympanic membrane, ear canal and external ear normal. Nose: Nose normal. Mouth/Throat: Mouth: Mucous membranes are moist. Tongue: Tongue does not deviate from midline. Pharynx: Oropharynx is clear. Uvula midline. Posterior oropharyngeal erythema (mild) present. No pharyngeal swelling, oropharyngeal exudate or uvula swelling. Tonsils: No tonsillar exudate or tonsillar abscesses. 0 on the right. 0 on the left. Cardiovascular: Rate and Rhythm: Normal rate and regular rhythm. Pulmonary: Effort: Pulmonary effort is normal. Breath sounds: Normal breath sounds. Musculoskeletal: Cervical back: Normal range of motion and neck supple. Lymphadenopathy: Cervical: Cervical adenopathy present. Skin: General: Skin is warm and dry. Neurological: Mental Status: She is alert and oriented to person, place, and time. Psychiatric: Mood and Affect: Mood normal. Behavior: Behavior normal. Assessment/Plan 1. Viral pharyngitis - fluticasone (Flonase) 50 MCG/ACT nasal spray; Administer 1 spray into each nostril daily. Shake gently. Before first use, prime pump. After use, clean tip and replace cap., Starting 03/25/2024, Until 03/25/2025, Normal - dexAMETHasone (Decadron) injection 10 mg; 10 mg, Oral, Once, On 03/25/24 at 1215, For 1 dose 2. Sore throat - AMB POC STREP GO A DIRECT, DNA PROBE Rapid strep is negative. Offered additional testing including COVID and influenza, patient declines. Likely viral pharyngitis. Patient is nontoxic, breathing easy and even. No evidence of [employer] or other deep neck infection. Will start on Flonase as well as give a dose of Decadron orally in clinic today to help with throat pain. Advised to increase fluids and rotate Tylenol and ibuprofen for additional pain/fever relief. Symptoms fail to improve in the next 5 to 7 days, follow-up with PCP. ER for any sudden/severe worsening of symptoms. Patient agreeable with plan, left in stable condition. JONNIE Juarez CNP 03/25/2024 12:31 PM documented in this encounter [facility] [employer] 03-16-2024 History of Present illness Narrative VIRTUAL VISIT PROGRESS NOTE This is a virtual visit using [employer] Video Visit. It required patient-provider interaction for the medical decision making as documented below. I have communicated my name and active licensure. The patient's identity and physical location were verified at the time of this visit. Either the patient or their legal signs and displays sales representative has been informed of the risks and benefits of -- and alternatives to -- treatment through a remote evaluation and consents to proceed with the evaluation remotely. Callie Kennedy is a 53 year old female seen for IBD. She is doing OK Getting started on skyrizi next week She has not obtained vaccinations or CXR yet but was negative for TB Joints are good Bowels are ok At times, fatigued Labs: Elevated Fecal Calpro 952 Normal cbc, cmp, crp, vitamin b12, vitamin d, iron studies Needs HAV, HBV vaccination Negative for TB CXR was ordered but not completed. CTE: inflammation in colon and rectum Colonoscopy and EGD: - Preparation of the colon was fair. - Perianal skin tags found on perianal exam. - Non-thrombosed external hemorrhoids found on digital rectal exam. - Non-bleeding internal hemorrhoids. - The examined portion of the ileum was normal. - The ascending colon and cecum are normal. Biopsied. - The transverse colon is normal. Biopsied. - A few ulcers at the splenic flexure. Biopsied. - The descending colon is normal. Biopsied. - Pseudopolyps in the descending colon. Biopsied. - The rectum, sigmoid colon and recto-sigmoid colon are normal. Biopsied. - The examination was otherwise normal on direct and retroflexion views. - Z-line regular, 38 cm from the incisors. - Normal esophagus. - Normal stomach. Biopsied. - 2 cm hiatal hernia. - Normal duodenal bulb, second portion of the duodenum and third portion of the duodenum. Biopsied. FINAL DIAGNOSIS A. Small bowel, duodenum, biopsy: - Small bowel mucosa with no significant diagnostic alterations. B. Stomach, antrum, biopsies: - Superficial fragments of gastric mucosa with no significant diagnostic alterations. - No morphologic evidence of Helicobacter pylori organisms. C. Colon, cecum and ascending, biopsies: - Colonic mucosa with intramucosal giant cells. - Negative for dysplasia. D. Colon, transverse, biopsy: - Colonic mucosa with intramucosal granulomas and isolated giant cells. - Negative for dysplasia. E. Colon, splenic flexure, biopsy: - Chronic active colitis with intramucosal granulomas, focal erosion, and isolated giant cells. - Negative for dysplasia. See comment. F. Colon, descending, biopsy: - Chronic focally active colitis with intramucosal granulomas. - Negative for dysplasia. G. Colon, descending, polypectomies: - Post-inflammatory polyps with intramucosal granuloma and isolated giant cells. - Negative for dysplasia. H. Rectum, biopsy: - Chronic active colitis with intramucosal granulomas and isolated giant cells. - Negative for dysplasia. 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 Had thoracic outlet decompression surgery on the right in 2017 PMH - PAST MEDICAL HISTORY OF right shoulder work injury, resolving with Physical Therapy and pain management Pulmonary embolism (HCC) 06/06/2001 sister has a clotting disorder but patient wasn't tested. This occured when she was on bedrest with twins developed bilateral DVT, then PE. Was on heparin until they were born (delivered at 30 weeks) was on an oral blood thinner for six months and then was taken off Regional enteritis of unspecified site Crohn disease Sleep apnea TOS (thoracic outlet syndrome) Ulcerative colitis (HCC) PAST SURGICAL HISTORY Procedure Laterality Date DELIVERY ONLY 02/27/2002 emergency section for 30wk gest twins COLONOSCOPY 02/08/2020 MINIMAL ACTIVE COLITIS descending colon, tortuous colon, int hemorrhoids EGD 06/01/2022 gastritis, Claudia-Arevalo tear, neg H Pylori EXC CYST/ABERRANT BREAST TISSUE OPEN 1/> LESION 04/25/2009 RIGHT with benign results EXC CYST/ABERRANT BREAST TISSUE OPEN 1/> LESION 04/25/2009 RIGHT with benign results EXCISE LYMPH NODE 04/25/2009 RIGHT with benign results LAPS ABD PRTM&OMENTUM DX W/WO SPEC BR/WA SPX 05/12/2001 Dr. Jasso, Endo, stage 4 LAPS ABD PRTM&OMENTUM DX W/WO SPEC BR/WA SPX 06/19/1999 Dr. Jasso, endometriosis LAPS ABD PRTM&OMENTUM DX W/WO SPEC BR/WA SPX 1997 Dr. Moralez, [place], [place] She found endo (1st dx. of endo) LAPS ABD PRTM&OMENTUM DX W/WO SPEC BR/WA SPX 08/07/2004 Dr. Jasso. Dx. L'scopy, RIGHT ovarian cystectomy, lysis of adhesions, rigid proctoscopy. (for RIGHT ovarian cyst, stage IV endometriosis LAPS ABD PRTM&OMENTUM DX W/WO SPEC BR/WA SPX 05/12/2001 Dr. Hussain Jasso.OPERATION: Diagnostic laparoscopy, resection of bilateral endometriomas, and lysis of adhesions LAPS ABD PRTM&OMENTUM DX W/WO SPEC BR/WA SPX 06/17/1999 Dr. Hussain Jasso. OPERATION: Laparoscopic excision of endometriosis. LAPS ABD PRTM&OMENTUM DX W/WO SPEC BR/WA SPX 06/17/1999 Dr. Payton OPERATION: Excision of rectal endometriosis, mobilization of the rectum and rigid sigmoidoscopy. ORTHOPEDICS SURGERY HX Right 12/13/2018 artoroscopic rt shoulder PAST SURGICAL HISTORY OF age 4 umbillical hernia PAST SURGICAL HISTORY OF breast cysts x3 surgeries PAST SURGICAL HISTORY OF 12/2006 TRIGGER FINGER RELEASE RIGHT HAND PECTORALIS MINOR TENDON RELEASE (COMP CODE [id number]) Right RIB RESECTION TOTAL Right SHOULDER ARTHROSCOPY/SURGERY Right 12/13/2018 Dr Hernandez, repair labrum tear SHOULDER SURGERY HX Right 12/13/2017 FAMILY HISTORY Problem Relation Age of Onset Diabetes Maternal Grandfather Cancer Maternal Grandmother Breast Cancer Paternal Grandmother unaware of history, pt.is Colon Cancer Paternal Grandfather Heart Mother Heart Father Breast Cancer Sister 04/2009 pt dx after,nipple discharge ,color change, most recedtly stopped breast feeding, tx plan, started pending pathology Social History Tobacco Use Smoking status: Former Current packs/day: 0.00 Average packs/day: 1 pack/day for 10.0 years (10.0 ttl pk-yrs) Types: Cigarettes Start date: 07/11/1994 Quit date: 07/11/2004 Years since quittin.6 Smokeless tobacco: Never Vaping Use Vaping status: Never Used Substance Use Topics Alcohol use: Yes Comment: rarely Drug use: No Current Outpatient Medications Medication Sig baclofen 10 mg tablet Take 10 mg by mouth three times a day. polyethylene glycol 3350 17 gram packet Take 17 g by mouth once daily. iv contrast (will be provided with radiology test) CT Enterography W Inject, intravenously, once for 1 dose.No IV access, insert saline lock prior to the beginning of sedation, infusion, injection of imaging exam. Discontinue saline lock post exam. If Pt. has a central line or IVAD, may access for administration according to line specific nursing protocol. Once exam is complete flush line and de-access according to line specific nursing protocol in the CT contrast administration guidelines link. enteric contrast (will be provided with radiology test) For CT ENTEROGRAPHY W IVCON order Administer, As Directed One Time Only, via Oral, Rectal, both Oral and Rectal, Enteric Tube, Stoma or Indwelling Catheter, Enteric Contrast as designated per enteric contrast guidelines. traZODone (DESYREL) 100 mg tablet Take 100 mg by mouth at bedtime as needed. For Insomnia venlafaxine ER (EFFEXOR XR) 75 mg 24 hr capsule Take 75 mg by mouth once daily. montelukast (SINGULAIR) 10 mg tablet Take 1 tablet by mouth once daily. albuterol HFA (PROVENTIL HFA, VENTOLIN HFA) 90 mcg/actuation inhaler Inhale 2 Puffs as instructed every 6 hours. No current facility-administered medications for this visit. ALLERGIES Allergen Reactions Hydroquinone Anaphylaxis Codeine GI Upset Gadoterate Meglumine Unknown Humira [Adalimumab] Hives Stelara [Ustekinuma* Shortness of Breath REVIEW OF SYSTEMS: As noted in HPI PHYSICAL EXAMINATION: VIDEO EXAM: (if completed, performed via video enabled technology) GENERAL: alert and appropriate, in no distress, well-hydrated, well nourished, and happy, smiling, interactive ASSESSMENT: 1. Crohn's disease of colon without complication (HCC) -Beginning Skiz next week -Check labs in April 23, 2024 week and Jun 22, 2024 week -She should obtain the hepatitis A, Hepatitis B vaccination series -She should also obtain the shingrix and pneumovax vaccinations due to her immunocompromised state even though she is not 67, these are recommended by the IBD societies given that she is on a biologic immunosuppressant for IBD -We discussed flu vaccination. She has an allergy and was told never to get it again - We discussed COVID 19 vaccination/booster recommendations to obtain this and she will think about this. - COMPLETE BLOOD COUNT AND DIFFERENTIAL; Future - COMPREHENSIVE METABOLIC PANEL; Future - C-REACTIVE PROTEIN; Future - CALPROTECTIN,FECAL - COMPLETE BLOOD COUNT AND DIFFERENTIAL; Future - COMPREHENSIVE METABOLIC PANEL; Future - C-REACTIVE PROTEIN; Future 2. History of pulmonary embolus during Consult to hematology (+) FHX of hypercoagulable state in sister - CONSULT TO HEMATOLOGY/ONCOLOGY; Future - COMPLETE BLOOD COUNT AND DIFFERENTIAL; Future - COMPREHENSIVE METABOLIC PANEL; Future - C-REACTIVE PROTEIN; Future - CALPROTECTIN,FECAL - COMPLETE BLOOD COUNT AND DIFFERENTIAL; Future - C-REACTIVE PROTEIN; Future 3. Family history of hypercoagulable state Sister has factor V leiden and lupus anticoagulant Patient had bilateral PE during and has h/o IBD - CONSULT TO HEMATOLOGY/ONCOLOGY; Future - COMPLETE BLOOD COUNT AND DIFFERENTIAL; Future - COMPREHENSIVE METABOLIC PANEL; Future - C-REACTIVE PROTEIN; Future - CALPROTECTIN,FECAL - COMPLETE BLOOD COUNT AND DIFFERENTIAL; Future - C-REACTIVE PROTEIN; Future There are no Patient Instructions on file for this visit. I spent a total of 28 minutes on the date of the service which included preparing to see the patient, [id number] patient care, completing clinical documentation, performing a medically appropriate examination, counseling and educating the patient/family/caregiver, ordering medications, tests, or procedures, communicating results to the patient/family/caregiver, and care coordination (not separately reported) Alia Kaur MD documented in this encounter [facility] 03-07-2024 Telephone encounter Note Patient approved to start Skyrizi for her ulcerative colitis. Provided number for her to call infusion center at [facility] [place] to get scheduled. She will let me know when schedules the 3rd one, to start authorization for the self inject OBI. Cielo Roldan [facility] 03-07-2024 Miscellaneous Notes Patient approved to start Skyrizi for her ulcerative colitis. Provided number for her to call infusion center at [facility] [place] to get scheduled. She will let me know when schedules the 3rd one, to start authorization for the self inject OBI. Cielo Roldan [facility] documented in this encounter [facility] 02-13-[address] Parmar at bedside to speak with patient and SO [facility] 02-13-[address] Parmar at bedside to speak with patient and SO [facility] documented in this encounter [facility] 02-13-2024 Nurse Note Passing air [facility] 09-09-2024 Note Formatting of this n ote might be different from the original. The patient received a copy of Colonoscopy and EGD discharge instructions that contain information for how to contact the physician who performed the procedure and when to seek medical care. [facility] 02-13-2024 Miscellaneous Notes The patient received a copy of Colonoscopy and EGD discharge instructions that contain information for how to contact the physician who performed the procedure and when to seek medical care. documented in this encounter [facility] 02-13-2024 History and physical note Endoscopy pre-operative H&P H&P completed prior to the start time of the procedure. IMPRESSION AND PLAN HPI: This is a 53 year old female. For EGD and colonoscopy. H/o CALEB N/V Recent ? Inflammation in the lower colon/rectum on CT scan Pertinent Review of Systems: GI: See HPI All other reviewed and negative other than HPI. PAST MEDICAL HISTORY: PAST MEDICAL HISTORY No date: Anxiety state, unspecified No date: Breast mass Comment: RIGHT BREAST, x3 removed at [facility] all with benign results No date: DVT (deep vein thrombosis) in No date: Endometriosis No date: Endometriosis No date: Enlarged lymph nodes in armpit Comment: RIGHT No date: Fibroids 02/24/2021: Irritable bowel syndrome No date: Other and unspecified ovarian cyst No date: Pain in joint, pelvic region and thigh Comment: pelvic pain 02/24/2021: Pectoralis minor syndrome (HCC) Comment: muscles pull right shoulder forward and causes muscle spasms since 2011. Had thoracic outlet decompression surgery on the right in 2017 No date: PMH - PAST MEDICAL HISTORY OF Comment: right shoulder work injury, resolving with Physical Therapy and pain management 06/06/2001: Pulmonary embolism (HCC) Comment: sister has a clotting disorder but patient wasn't tested. This occured when she was on bedrest with twins developed bilateral DVT, then PE. Was on heparin until they were born (delivered at 30 weeks) was on an oral blood thinner for six months and then was taken off No date: Regional enteritis of unspecified site Comment: Crohn disease No date: Sleep apnea No date: TOS (thoracic outlet syndrome) No date: Ulcerative colitis (HCC) PAST SURGICAL HISTORY: PAST SURGICAL HISTORY 02/27/2002: DELIVERY ONLY Comment: emergency section for 30wk gest twins 02/08/2020: COLONOSCOPY Comment: MINIMAL ACTIVE COLITIS descending colon, tortuous colon, int hemorrhoids 06/01/2022: EGD Comment: gastritis, Claudia-Arevalo tear, neg H Pylori 04/25/2009: EXC CYST/ABERRANT BREAST TISSUE OPEN 1/> LESION Comment: RIGHT with benign results 04/25/2009: EXC CYST/ABERRANT BREAST TISSUE OPEN 1/> LESION Comment: RIGHT with benign results 04/25/2009: EXCISE LYMPH NODE Comment: RIGHT with benign results 05/12/2001: LAPS ABD PRTM&OMENTUM DX W/WO SPEC BR/WA SPX Comment: Dr. Jasso, Endo, stage 4 06/19/1999: LAPS ABD PRTM&OMENTUM DX W/WO SPEC BR/WA SPX Comment: Dr. Jasso, endometriosis 1997: LAPS ABD PRTM&OMENTUM DX W/WO SPEC BR/WA SPX Comment: Dr. Moralez [place], [place] She found endo (1st dx. of endo) 08/07/2004: LAPS ABD PRTM&OMENTUM DX W/WO SPEC BR/WA SPX Comment: Dr. Jasso. Dx. L'scopy, RIGHT ovarian cystectomy, lysis of adhesions, rigid proctoscopy. (for RIGHT ovarian cyst, stage IV endometriosis 05/12/2001: LAPS ABD PRTM&OMENTUM DX W/WO SPEC BR/WA SPX Comment: Dr. Hussain Jasso.OPERATION: Diagnostic laparoscopy, resection of bilateral endometriomas, and lysis of adhesions 06/17/1999: LAPS ABD PRTM&OMENTUM DX W/WO SPEC BR/WA SPX Comment: Dr. Hussain Jasso. OPERATION: Laparoscopic excision of endometriosis. 06/17/1999: LAPS ABD PRTM&OMENTUM DX W/WO SPEC BR/WA SPX Comment: Dr. Payton OPERATION: Excision of rectal endometriosis, mobilization of the rectum and rigid sigmoidoscopy. 12/13/2018: ORTHOPEDICS SURGERY HX; Right Comment: artoroscopic rt shoulder No date: PAST SURGICAL HISTORY OF Comment: age 4 umbillical hernia No date: PAST SURGICAL HISTORY OF Comment: breast cysts x3 surgeries 12/2006: PAST SURGICAL HISTORY OF Comment: TRIGGER FINGER RELEASE RIGHT HAND No date: PECTORALIS MINOR TENDON RELEASE (COMP CODE [id number]); Right No date: RIB RESECTION TOTAL; Right 12/13/2018: SHOULDER ARTHROSCOPY/SURGERY; Right Comment: Dr Hernandez, repair labrum tear 12/13/2017: SHOULDER SURGERY HX; Right OBJECTIVE: PHYSICAL EXAM: VITALS: BP 128/77 Pulse 81 Temp 36.8 C (98.2 F) (Temporal) Resp 16 Ht 167.6 cm (5' 6") Wt 70.3 kg (155 lb) LMP 03/07/2010 SpO2 99% BMI 25.02 kg/m General appearance: A&Ox3 Respiratory: Normal chest expansion. No audible wheezes. CVS: No shortness of breath, no extremity edema. Regular pulse. Plan: OK to proceed with endoscopy. SIGNATURE: Alia Kaur MD PATIENT NAME: Callie Kennedy [facility] 02-13-2024 History and physical note Endoscopy pre-operative H&P H&P completed prior to the start time of the procedure. IMPRESSION AND PLAN HPI: This is a 53 year old female. For EGD and colonoscopy. H/o CALEB N/V Recent ? Inflammation in the lower colon/rectum on CT scan Pertinent Review of Systems: GI: See HPI All other reviewed and negative other than HPI. PAST MEDICAL HISTORY: PAST MEDICAL HISTORY No date: Anxiety state, unspecified No date: Breast mass Comment: RIGHT BREAST, x3 removed at [facility] all with benign results No date: DVT (deep vein thrombosis) in No date: Endometriosis No date: Endometriosis No date: Enlarged lymph nodes in armpit Comment: RIGHT No date: Fibroids 02/24/2021: Irritable bowel syndrome No date: Other and unspecified ovarian cyst No date: Pain in joint, pelvic region and thigh Comment: pelvic pain 02/24/2021: Pectoralis minor syndrome (HCC) Comment: muscles pull right shoulder forward and causes muscle spasms since 2011. Had thoracic outlet decompression surgery on the right in 2017 No date: PMH - PAST MEDICAL HISTORY OF Comment: right shoulder work injury, resolving with Physical Therapy and pain management 06/06/2001: Pulmonary embolism (HCC) Comment: sister has a clotting disorder but patient wasn't tested. This occured when she was on bedrest with twins developed bilateral DVT, then PE. Was on heparin until they were born (delivered at 30 weeks) was on an oral blood thinner for six months and then was taken off No date: Regional enteritis of unspecified site Comment: Crohn disease No date: Sleep apnea No date: TOS (thoracic outlet syndrome) No date: Ulcerative colitis (HCC) PAST SURGICAL HISTORY: PAST SURGICAL HISTORY 02/27/2002: DELIVERY ONLY Comment: emergency section for 30wk gest twins 02/08/2020: COLONOSCOPY Comment: MINIMAL ACTIVE COLITIS descending colon, tortuous colon, int hemorrhoids 06/01/2022: EGD Comment: gastritis, Claudia-Arevalo tear, neg H Pylori 04/25/2009: EXC CYST/ABERRANT BREAST TISSUE OPEN 1/> LESION Comment: RIGHT with benign results 04/25/2009: EXC CYST/ABERRANT BREAST TISSUE OPEN 1/> LESION Comment: RIGHT with benign results 04/25/2009: EXCISE LYMPH NODE Comment: RIGHT with benign results 05/12/2001: LAPS ABD PRTM&OMENTUM DX W/WO SPEC BR/WA SPX Comment: Katja Gan, stage 4 06/19/1999: LAPS ABD PRTM&OMENTUM DX W/WO SPEC BR/WA SPX Comment: Dr. Jsaso, endometriosis 1997: LAPS ABD PRTM&OMENTUM DX W/WO SPEC BR/WA SPX Comment: [place] She found endo (1st dx. of endo) 08/07/2004: LAPS ABD PRTM&OMENTUM DX W/WO SPEC BR/WA SPX Comment: Dr. Jasso. Dx. L'scopy, RIGHT ovarian cystectomy, lysis of adhesions, rigid proctoscopy. (for RIGHT ovarian cyst, stage IV endometriosis 05/12/2001: LAPS ABD PRTM&OMENTUM DX W/WO SPEC BR/WA SPX Comment: Dr. Hussain Jasso.OPERATION: Diagnostic laparoscopy, resection of bilateral endometriomas, and lysis of adhesions 06/17/1999: LAPS ABD PRTM&OMENTUM DX W/WO SPEC BR/WA SPX Comment: Dr. Hussain Jasso. OPERATION: Laparoscopic excision of endometriosis. 06/17/1999: LAPS ABD PRTM&OMENTUM DX W/WO SPEC BR/WA SPX Comment: Dr. Payton OPERATION: Excision of rectal endometriosis, mobilization of the rectum and rigid sigmoidoscopy. 12/13/2018: ORTHOPEDICS SURGERY HX; Right Comment: artoroscopic rt shoulder No date: PAST SURGICAL HISTORY OF Comment: age 4 umbillical hernia No date: PAST SURGICAL HISTORY OF Comment: breast cysts x3 surgeries 12/2006: PAST SURGICAL HISTORY OF Comment: TRIGGER FINGER RELEASE RIGHT HAND No date: PECTORALIS MINOR TENDON RELEASE (COMP CODE [id number]); Right No date: RIB RESECTION TOTAL; Right 12/13/2018: SHOULDER ARTHROSCOPY/SURGERY; Right Comment: Dr Hernandez, repair labrum tear 12/13/2017: SHOULDER SURGERY HX; Right OBJECTIVE: PHYSICAL EXAM: VITALS: BP 128/77 Pulse 81 Temp 36.8 C (98.2 F) (Temporal) Resp 16 Ht 167.6 cm (5' 6") Wt 70.3 kg (155 lb) LMP 03/07/2010 SpO2 99% BMI 25.02 kg/m General appearance: A&Ox3 Respiratory: Normal chest expansion. No audible wheezes. CVS: No shortness of breath, no extremity edema. Regular pulse. Plan: OK to proceed with endoscopy. SIGNATURE: Alia Kaur MD PATIENT NAME: Callie Kennedy documented in this encounter [facility] 12-20-2023 Instructions Alia Parmar MD - 12/20/2023 8:48 AM EDT Images from the original note were not included. Bowel Preparation Instructions for: Miralax-Gatorade Preparations IF YOU DO NOT FOLLOW THESE DIRECTIONS, YOUR COLONOSCOPY WILL BE CANCELLED. Rico Instructions: Your bowel must be empty so that your doctor can clearly view your colon. Follow all of the instructions in this handout EXACTLY as they are written. Do NOT eat any solid food the ENTIRE day before your colonoscopy. Buy your bowel preparation at least 5 days before your colonoscopy. Four (4) Dulcolax laxative tablets containing 5mg of bisacodyl each (NOT Dulcolax stool softener) One (1) 8.3oz. bottle Miralax (238 grams) or generic equivalent 2 x 32oz. Bottles of Gatorade (NOT RED) Diabetic Patients: Use G2 (Gatorade 2) TRANSPORTATION on the Day of Your Exam A responsible adult MUST be present with you at Check In prior to your colonoscopy and REMAIN in the endoscopy area until you are discharged. You are NOT ALLOWED to drive, take a taxi or bus, or leave the Endoscopy Center ALONE. If you do not have a responsible limo driver (family member or friend) with you to take you home, your exam cannot be done with sedation and will be cancelled. Please bring a list of all of your current medications, including any [id number] medications with you. Medications If you take insulin, diabetic medications or blood thinners such as Coumadin (warfarin), Plavix (clopidogrel), Ticlid (ticlopidine hydrochloride), Agrylin (anagrelide), Xarelto (Rivaroxaban), Pradaxa (Dabigatran), Eliquis (Apixaban), and Effient (Prasugrel). You MUST call the doctors who orders those medicines for instructions on altering the dosage before your colonoscopy. All other medications should be taken the day of the exam with a sip of water including ASPIRIN. Five (5) Days Before Your Colonoscopy Do NOT take medicines that stop diarrhea - such as Imodium, Kaopectate, or Pepto Bismol. Do NOT take fiber supplements - such as Metamucil, Citrucel, or Perdiem. Do NOT take products that contain iron - such as multi-vitamins (the label lists what is in the products). Three (3) Days Before Your Colonoscopy Do NOT eat high-fiber foods - such as popcorn, beans, seeds (flax, sunflower, quinoa), multigrain bread, nuts, salad/vegetables, or fresh and dried fruit. 1 Bowel Preparation Instructions for: Miralax-Gatorade Preparations One (1) Day Before Your Colonoscopy Only drink clear liquids the ENTIRE DAY before your colonoscopy. Do NOT eat any solid foods. Drink at least 8 ounces of clear liquids every hour after waking up. The clear liquids you can drink include: Clear Liquid (NO RED LIQUIDS) DO NOT DRINK Gatorade, Pedialyte or Powerade Clear broth or bouillon Coffee or tea (no milk or non-dairy creamer) Carbonated and non-carbonated soft drinks Ibrahima-Aid or other fruit flavored drinks Strained fruit juices (no pulp) Jell-O, popsicles, hard candy Water Alcohol Milk or non-dairy creamers Noodles or vegetables in soup Juice with pulp Liquid you cannot see through Do not use tobacco/vaping products Mix 1/2 of Miralax bottle (119 grams) in each 32 ounces of Gatorade bottle until dissolved. Keep cool in the refrigerator. DO NOT ADD ICE. The bowel preparation solution will be consumed in two parts. Part 1 5:00 PM - Evening before your colonoscopy Take 4 Dulcolax tablets. 6 PM - Evening before your colonoscopy Drink 32 oz. of the mixed solution. Drink an 8 oz. glass of bowel preparation every 15 minutes for a total of 4 glasses. Fifteen (15) minutes later, drink an 8 oz. glass of of clear liquids every 15 minutes for a total of 2 glasses. You may continue to drink clear liquids till midnight. Part 2 On the day of your colonoscopy you may drink clear liquids up to (three) 3 hours prior to procedure. 4 1/2 hours before your colonoscopy Take another 32 oz. bottle of mixed solution. Drink an 8 oz. glass of bowel prep every 15 minutes for a total of 4 glasses. Fifteen (15) minutes later, drink an 8 oz. glass of clear liquids every 15 minutes for a total of 2 glasses. You may continue to drink clear liquids up to (three) 3 hours before your exam. 2 05/2019 documented in this encounter [facility] 12-20-2023 History of Present illness Narrative CHIEF COMPLAINT: Patient presents with: Hospital F/U: Hx UC This consult was requested by Milana Grace DO for an opinion regarding ulcerative colitis. My final recommendations will be communicated to the requesting health care provider by way of the shared medical record for internal providers or letter via the [employer] for external providers. Callie Kennedy is a 53 year old female who presents for Hospital F/U. HPI: 53 yo F h/o CALEB Curently, having issues with RLQ and pain, N/V Diarrhea after meals, feeling like she cannot keep anything down Dx 2005: she was having issues with constipation and bloating She saw GI in [place] Colonoscopy was done and was dx with both Crohn's disease and Ulcerative colitis Sounds like maybe she was initially told it was Crohn's disease and eventually told ulcerative colitis She was started on a medication by mouth sounds like balsalazide 3 tablets three times daily This did quiet things down initilly She went years without issues She then saw Dr. Montoya about 8 years ago (2015): was given steroids and this calmed things down. He told her she needed a maint med and she was started on Humira (hives over the entire body with the initial induction doses so this was stopped before maintenance stage but she did get all induction doses) She then tried stelara. A few minutes into the infusion she had issue with breathing and she had to be taken to the hospital She has since tried to manage with just diet and lifestyle Last saw GI 4 ago in [place] (Dr. Montoya) Last colon 02/07/2020: Dr. Kan Post-Op/Post-Procedure Diagnosis: Patchy colitis with ulceration affecting descending to sigmoid colon with relative rectal sparing Normal terminal ileum Tortuous sigmoid with suboptimal prep Grade 1 internal hemorrhoids but no perianal fistula She was started on Colazol and told to go back to her [place], [place], GI Last EGD 2021: Dr. Dejesus at hospital for N/V/hematemesis when trying to wean off opions EGD showed Claudia Arevalo tear, started on IV PPI changed to po at D/C CT at that time showed bilateral pyelonephritis and colitis She did not undergo colonoscopy at that time Last medication: 5-ASA, budesonide, Humira, Stelara, Colazol (failed all) Tobacco: None Alcohol: No Marijuana: No FHX: Sister: Crohn's disease NSAIDs: She avoids, has h/o opiate use and went thru adddiction therapy and counseling and is free form this at present time EIM: None; She does have skin rash on her left check mainly and minor on the right cheek. PMHx PE 2021 with DVT in Brachial plexus issue s/p anterior compartment decompression Hysterectomy Appy Seen in [facility] ER 10/31/2023: Callie Kennedy is a 53 y.o. female with PMH significant for ulcerative colitis who presents to the emergency department with her for evaluation of right lower quadrant abdominal pain. She states that for the last 2 to 3 weeks she has been dealing with constipation. She states that when she experiences UC flare she usually deals with intermittent constipation and vomiting that usually resolves with MiraLAX and Colace. States that she has been trying this for the last 2 to 3 weeks, but in the last 24 hours has noticed that her abdomen has become firm and increasingly tender to the right lower quadrant, and she experienced an episode of emesis this morning that lasted approximately 10 minutes. States that over the last 2 weeks she has been having small thin low volume stools, but denies bright red blood per rectum or blood in her stool. States that this morning all she was able to pass was liquid that she describes as watery from the rectum. States that she has had several surgeries within the abdomen including an appendectomy, multiple laparoscopies for stage V endometriosis, as well as a hysterectomy. Denies history of bowel obstruction. CT abdomen pelvis w contrast Final Result Increased fecal residue throughout the colon is suggestive of constipation. No small bowel inflammatory change or dilatation is noted. She got zofran, toradol, Solumedrol injection, IVF and IV contrast Upon reassessment patient remains nontoxic and in no acute distress, sitting comfortably in bed with her present at the bedside, watching TV. Lab workup results CBC without evidence of leukocytosis or acute anemia, CMP without evidence of fluid electrolyte abnormality or AISHA, lipase within normal limits, UA without evidence of acute cystitis. Imaging results per radiology increased fecal residue throughout the colon is suggestive of constipation. No small bowel inflammatory change or dilatation is noted." Record Review: [facility] / Outside records reviewed. 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 Had thoracic outlet decompression surgery on the right in 2017 PMH - PAST MEDICAL HISTORY OF right shoulder work injury, resolving with Physical Therapy and pain management Pulmonary embolism (HCC) 06/06/2001 sister has a clotting disorder but patient wasn't tested. This occured when she was on bedrest with twins developed bilateral DVT, then PE. Was on heparin until they were born (delivered at 30 weeks) was on an oral blood thinner for six months and then was taken off Regional enteritis of unspecified site Crohn disease TOS (thoracic outlet syndrome) Ulcerative colitis (HCC) PAST SURGICAL HISTORY Procedure Laterality Date DELIVERY ONLY 02/27/2002 emergency section for 30wk gest twins COLONOSCOPY 02/08/2020 MINIMAL ACTIVE COLITIS descending colon, tortuous colon, int hemorrhoids EGD 06/01/2022 gastritis, Claudia-Arevalo tear, neg H Pylori EXC CYST/ABERRANT BREAST TISSUE OPEN 1/> LESION 04/25/2009 RIGHT with benign results EXC CYST/ABERRANT BREAST TISSUE OPEN 1/> LESION 04/25/2009 RIGHT with benign results EXCISE LYMPH NODE 04/25/2009 RIGHT with benign results LAPS ABD PRTM&OMENTUM DX W/WO SPEC BR/WA SPX 05/12/2001 Dr. Jasso, Endo, stage 4 LAPS ABD PRTM&OMENTUM DX W/WO SPEC BR/WA SPX 06/19/1999 Dr. Jasso, endometriosis LAPS ABD PRTM&OMENTUM DX W/WO SPEC BR/WA SPX 1997 Dr. Moralez, [place] She found endo (1st dx. of endo) LAPS ABD PRTM&OMENTUM DX W/WO SPEC BR/WA SPX 08/07/2004 Dr. Jasso. Dx. L'scopy, RIGHT ovarian cystectomy, lysis of adhesions, rigid proctoscopy. (for RIGHT ovarian cyst, stage IV endometriosis LAPS ABD PRTM&OMENTUM DX W/WO SPEC BR/WA SPX 05/12/2001 Dr. Hussain Jasso.OPERATION: Diagnostic laparoscopy, resection of bilateral endometriomas, and lysis of adhesions LAPS ABD PRTM&OMENTUM DX W/WO SPEC BR/WA SPX 06/17/1999 Dr. Hussain Jasso. OPERATION: Laparoscopic excision of endometriosis. LAPS ABD PRTM&OMENTUM DX W/WO SPEC BR/WA SPX 06/17/1999 Dr. Payton OPERATION: Excision of rectal endometriosis, mobilization of the rectum and rigid sigmoidoscopy. ORTHOPEDICS SURGERY HX Right 12/13/2018 artoroscopic rt shoulder PAST SURGICAL HISTORY OF age 4 umbillical hernia PAST SURGICAL HISTORY OF breast cysts x3 surgeries PAST SURGICAL HISTORY OF 12/2006 TRIGGER FINGER RELEASE RIGHT HAND PECTORALIS MINOR TENDON RELEASE (COMP CODE [id number]) Right RIB RESECTION TOTAL Right SHOULDER ARTHROSCOPY/SURGERY Right 12/13/2018 Dr Hernandez, repair labrum tear SHOULDER SURGERY HX Right 12/13/2017 Allergies: ALLERGIES Allergen Reactions Hydroquinone Anaphylaxis Codeine GI Upset Gadoterate Meglumine Unknown Humira [Adalimumab] Hives Stelara [Ustekinuma* Shortness of Breath Medications: baclofen 10 mg tablet Take 10 mg by mouth three times a day. polyethylene glycol 3350 17 gram packet Take 17 g by mouth once daily. traZODone (DESYREL) 100 mg tablet Take 100 mg by mouth at bedtime as needed. For Insomnia venlafaxine ER (EFFEXOR XR) 75 mg 24 hr capsule Take 75 mg by mouth once daily. montelukast (SINGULAIR) 10 mg tablet Take 1 tablet by mouth once daily. albuterol HFA (PROVENTIL HFA, VENTOLIN HFA) 90 mcg/actuation inhaler Inhale 2 Puffs as instructed every 6 hours. FAMILY HISTORY Problem Relation Age of Onset Diabetes Maternal Grandfather Cancer Maternal Grandmother Breast Cancer Paternal Grandmother unaware of history, pt.is Colon Cancer Paternal Grandfather Heart Mother Heart Father Breast Cancer Sister 04/2009 pt dx after,nipple discharge ,color change, most recedtly stopped breast feeding, tx plan, started pending pathology Employer And Job Title: None on file Years Of Education Completed: Not specified Marital Status: Social History Tobacco Use Smoking status: Former Packs/day: 1.00 Years: 10.00 Additional pack years: 0.00 Total pack years: 10.00 Types: Cigarettes Quit date: 07/11/2004 Years since quittin.4 Smokeless tobacco: Never Vaping Use Vaping Use: Never used Substance Use Topics Alcohol use: No Comment: rarely Drug use: No Review of Systems: Review of Systems Gastrointestinal: Positive for abdominal distention and abdominal pain. Change in bowel habits, diarrhea, gas All other systems reviewed and are negative. Are you taking any blood thinners? No Physical Examination: BP 114/62 Ht 5' 6" (1.68m) Wt 155 lb 3.2 oz (70.4kg) LMP 03/07/2010 BMI 25.06 kg/(m^2). Physical Exam Gen: pleasant, NAD, AAO*3 Abd: soft, Tender RLQ, ND, (+) BS x 4 quad but sluggish, No R/G/M CVS: RRR Lungs: CTA bilaterally Skin: No rash ASSESSMENT: 1. Ulcerative colitis without complications, unspecified location (HCC) Check labs, imaging, colonoscopy with TI and egd Patient has tolerated IV contrast in the past and most recently in the ER at [facility] - COLONOSCOPY DIAGNOSTIC; Future - EGD DIAGNOSTIC; Future - C. DIFFICILE PCR - CALPROTECTIN,FECAL - CELIAC SCREEN WITH REFLEX; Future - C-REACTIVE PROTEIN; Future - ENTERIC BACTERIAL PANEL BY PCR - COMPLETE BLOOD COUNT AND DIFFERENTIAL; Future - COMPREHENSIVE METABOLIC PANEL; Future - VITAMIN D1 25-DIHYDR; Future - VITAMIN B12; Future - HEPATITIS B SURFACE ANTIBODY; Future - HEPATITIS B SURFACE ANTIGEN; Future - HEPATITIS A ANTIBODY, IGG; Future - HEPATITIS A ANTIBODY IGM; Future - HEPATITIS C ANTIBODY IA WITH CONFIRMATION; Future - BLOOD TB SCREEN, INCUBATED; Future - XR CHEST 2V FRONTAL/LAT; Future - IRON AND TIBC; Future - FERRITIN; Future 2. Skin rash Over face at present time, maculopapular with some open sores over the top Has h/o hives with humira - COLONOSCOPY DIAGNOSTIC; Future - EGD DIAGNOSTIC; Future - C. DIFFICILE PCR - CALPROTECTIN,FECAL - CELIAC SCREEN WITH REFLEX; Future - C-REACTIVE PROTEIN; Future - ENTERIC BACTERIAL PANEL BY PCR - COMPLETE BLOOD COUNT AND DIFFERENTIAL; Future - COMPREHENSIVE METABOLIC PANEL; Future - VITAMIN D1 25-DIHYDR; Future - VITAMIN B12; Future - HEPATITIS B SURFACE ANTIBODY; Future - HEPATITIS B SURFACE ANTIGEN; Future - HEPATITIS A ANTIBODY, IGG; Future - HEPATITIS A ANTIBODY IGM; Future - HEPATITIS C ANTIBODY IA WITH CONFIRMATION; Future - BLOOD TB SCREEN, INCUBATED; Future - XR CHEST 2V FRONTAL/LAT; Future - CONSULT TO DERMATOLOGY; Future 3. Nausea and vomiting, unspecified vomiting type - EGD DIAGNOSTIC; Future 4. Vitamin D deficiency - VITAMIN D1 25-DIHYDR; Future She as advised if symptoms worsen to head to ER Alia Kaur MD DATE: 12/20/23 TIME: 7:47 AM documented in this encounter [facility] 10-31-2023 Hospital Discharge instructions Ifeoma Wren PA-C - 10/31/2023 4:47 PM EDT You were seen in the emergency department today for evaluation of abdominal pain. All of your labs and imaging were reassuring. We are sending you with a prescription for steroids, please take these as prescribed. We are also sending you with a prescription for MiraLAX. Would like you to follow-up closely with your primary care provider as an outpatient for symptom recheck. Please return to the emergency department develop new or worsening symptoms such as, but not limited to, worsening abdominal pain, an inability to tolerate food or water by mouth, blood in the stool or in your vomit, or fever greater than 101. The following attachments cannot be sent through Care Everywhere.Constipation Discharge Instructions, Adult (Nigerian)Severe Abdominal Pain Discharge Instructions, Adult (Nigerian)documented in this encounter [facility] 10-31-2023 Emergency department Note Pt presents with RLQ abd pain states started a few days ago. Pt with hx of ulcerative colitis. States has been having small BM and inflammation in abdomen. Pt states today is nausea and now not able to eat. Britni Heard RN 10/31/23 1341 [facility] 10-31-2023 Emergency department Note EMERGENCY DEPARTMENT ENCOUNTER Pt Name: Callie Kennedy Birthdate 1970 Date of evaluation: 10/31/2023 ED Provider: Ifeoma Wren PA-C CHIEF COMPLAINT Chief Complaint Patient presents with Abdominal Pain Nausea/ Vomiting x 2 days hx ulcerative colitis HISTORY OF PRESENT ILLNESS (Location/Symptom, Timing/Onset, Context/Setting, Quality, Duration, Modifying Factors, Severity) Note limiting factors. I wore appropriate PPE for the entirety of this encounter. HPI Callie Kennedy is a 53 y.o. female with PMH significant for ulcerative colitis who presents to the emergency department with her for evaluation of right lower quadrant abdominal pain. She states that for the last 2 to 3 weeks she has been dealing with constipation. She states that when she experiences UC flare she usually deals with intermittent constipation and vomiting that usually resolves with MiraLAX and Colace. States that she has been trying this for the last 2 to 3 weeks, but in the last 24 hours has noticed that her abdomen has become firm and increasingly tender to the right lower quadrant, and she experienced an episode of emesis this morning that lasted approximately 10 minutes. States that over the last 2 weeks she has been having small thin low volume stools, but denies bright red blood per rectum or blood in her stool. States that this morning all she was able to pass was liquid that she describes as watery from the rectum. States that she has had several surgeries within the abdomen including an appendectomy, multiple laparoscopies for stage V endometriosis, as well as a hysterectomy. Denies history of bowel obstruction. Nursing Notes were reviewed. Limitations to history: None Outside historians: None REVIEW OF SYSTEMS Review of Systems 14 systems reviewed, positives and pertinent negatives as per HPI. All other systems were reviewed and are negative. PAST MEDICAL HISTORY Past Medical History: Diagnosis Date Asthma Brachial plexus disorders DVT (deep vein thrombosis) in Neck sprain Pulmonary embolism (HCC) 2001 Shoulder sprain Ulcerative (chronic) enterocolitis (CMS/HCC) ([facility]) SURGICAL HISTORY Past Surgical History: Procedure Laterality Date ANTERIOR COMPARTMENT DECOMPRESSION 2016 Dr. Jacob [place], [place] APPENDECTOMY BREAST LUMPECTOMY 1991 x3 SECTION (HISTORICAL) 02/27/2002 twins ESOPHAGOGASTRODUODENOSCOPY N/A 06/01/2022 Dr Dejesus [facility] HYSTERECTOMY 03/23/2010 [place] @ [facility] LAPAROSCOPY DIAGNOSTIC / BIOPSY / ASPIRATION / LYSIS 2004 [id number] Dr. Jasso @ [facility] & Dr. Jarvis @ [place], [place] SHOULDER ARTHROSCOPY Right 12/13/2018 Dr. Hernandez @ [facility] SHOULDER SURGERY Right 11/23/2019 RT shoulder manipulation Under Anes, SHRUTI @ [facility] TENDON RELEASE 05/28/[address] Patel @ [facility] TRIGGER FINGER RELEASE Right 2006 [facility] CURRENT MEDICATIONS Discharge Medication List as of 10/31/2023 4:50 PM CONTINUE these medications which have NOT CHANGED Details albuterol 108 (90 Base) MCG/ACT inhaler Inhale 2 puffs 4 times daily as needed., Starting Tue12/05/2017, Historical Med fluticasone (Flonase) 50 MCG/ACT nasal spray Administer 1 spray into each nostril daily., Starting 09/20/2022, Historical Med Lactobacillus Rhamnosus, GG, (RA Probiotic Digestive Care) capsule Take 1 capsule by mouth in the morning., Starting Tue02/11/2020, Historical Med montelukast (Singulair) 10 MG tablet Take 10 mg by mouth daily., Starting Tue03/26/2022, Historical Med pantoprazole (ProtoNix) 40 MG EC tablet Take 1 tablet (40 mg) by mouth every morning (before breakfast). Do not crush, chew, or split. Do not start before June 04, 2022., Starting Tue06/04/2022, Until 06/04/2023, Normal traZODone (Desyrel) 100 MG tablet Take 100 mg by mouth Nightly as needed., Starting Tue05/24/2022, Historical Med venlafaxine XR (Effexor XR) 75 MG 24 hr capsule Take 75 mg by mouth daily., Starting 05/23/2022, Historical Med ALLERGIES Alera [hydroquinone], Cortisone, and Codeine FAMILY HISTORY Family History Problem Relation Name Age of Onset Heart disease Father Arthritis Mother Heart disease Mother SOCIAL HISTORY Social History Socioeconomic History Marital status: Tobacco Use Smoking status: Former Smokeless tobacco: Never Vaping Use Vaping Use: Never used Substance and Sexual Activity Alcohol use: Not Currently Drug use: Never Social Determinants of Health Housing Stability: Low Risk (05/31/2022) Housing Stability Vital Sign Unable to Pay for Housing in the Last Year: No Number of Places Lived in the Last Year: 1 Unstable Housing in the Last Year: No SCREENINGS PHYSICAL EXAM ED Triage Vitals [10/31/23 1341] Temp Heart Rate Resp BP 36.9 C (98.5 F) 90 16 (!) 147/91 SpO2 Temp Source Heart Rate Source Patient Position 99 % Temporal Monitor -- BP Location FiO2 (%) -- -- Physical Exam Vitals and nursing note reviewed. Constitutional: General: She is not in acute distress. Appearance: She is well-developed. Comments: Nontoxic and in no acute distress. HENT: Head: Normocephalic and atraumatic. Eyes: Conjunctiva/sclera: Conjunctivae normal. Cardiovascular: Rate and Rhythm: Normal rate and regular rhythm. Heart sounds: No murmur heard. Pulmonary: Effort: Pulmonary effort is normal. No respiratory distress. Breath sounds: Normal breath sounds. Abdominal: Palpations: Abdomen is soft. Tenderness: There is no abdominal tenderness. Comments: Tenderness to palpation over the right lower quadrant with somewhat diminished bowel sounds. Abdomen soft without guarding or rebound. Musculoskeletal: General: No swelling. Cervical back: Neck supple. Skin: General: Skin is warm and dry. Capillary Refill: Capillary refill takes less than 2 seconds. Neurological: Mental Status: She is alert. Psychiatric: Mood and Affect: Mood normal. DIAGNOSTIC RESULTS RADIOLOGY (Per Emergency Physician): Interpretation per the Radiologist below, if available at the time of this note: CT abdomen pelvis w contrast Final Result Increased fecal residue throughout the colon is suggestive of constipation. No small bowel inflammatory change or dilatation is noted. Report Dictated on Electronically Signed By: Timothy Lucero MD Electronically Signed Date/Time: 10/31/2023 4:32 PM EDT LABS: Labs Reviewed CBC WITH AUTO DIFFERENTIAL - Abnormal Result Value Auto WBC 9.9 RBC 4.42 Hemoglobin 13.5 Hematocrit 38.2 MCV 86.4 MCH 30.5 MCHC 35.3 RDW 12.0 Platelets 371 MPV 9.5 nRBC 0.0 Neutrophils Relative 68.4 Lymphocytes Relative 24.3 Monocytes Relative 6.1 Eosinophils Relative 0.3 Basophils Relative 0.4 Immature Grans % 0.5 Neutrophils Absolute 6.8 Lymphocytes Absolute 2.4 Monocytes Absolute 0.6 Eosinophils Absolute 0.0 Basophils Absolute 0.0 Immature Grans Absolute 0.1 (*) COMPREHENSIVE METABOLIC PANEL - Normal SODIUM 141 POTASSIUM 3.8 CHLORIDE 104 CARBON DIOXIDE 27 ANION GAP 10 UREA NITROGEN 10 CREATININE 0.72 GLUCOSE 98 CALCIUM 9.3 AST (SGOT) 31 ALT 26 ALKALINE PHOSPHATASE 107 ALBUMIN 4.3 BILIRUBIN, TOTAL 0.4 TOTAL PROTEIN 7.5 eGFR >90.0 LIPASE - Normal LIPASE 77 COMPLETE URINALYSIS - Normal Color, Urine Colorless Clarity, Urine Clear pH, Urine 8.0 Leukocytes, Urine Negative Nitrite, Urine Negative Protein, Urine Negative Glucose, Urine Normal Bilirubin, Urine Negative Ketones, Urine Negative Urobilinogen, Urine Normal Blood, Urine Negative SPECIFIC GRAVITY OF URINE (NUMERIC) 1.011 COMPLETE URINALYSIS WITH REFLEX TO CULTURE Narrative: The following orders were created for panel order Urinalysis Complete with reflex to Culture. Procedure Abnormality Status --------- ------ Complete Urinalysis[[id number]] Normal Final result Please view results for these tests on the individual orders. All other labs were within normal range or not returned as of this dictation. EMERGENCY DEPARTMENT COURSE and DIFFERENTIAL DIAGNOSIS/MDM: Vitals: Vitals: 10/31/23 1341 BP: (!) 147/91 Pulse: 90 Resp: 16 Temp: 36.9 C (98.5 F) TempSrc: Temporal SpO2: 99% Medications ondansetron (Zofran) injection 4 mg (4 mg IntraVENous Given 10/31/23 1458) sodium chloride 0.9 % bolus 1,000 mL (0 mL IntraVENous Stopped 10/31/23 1719) ketorolac (Toradol) injection 15 mg (15 mg IntraVENous Given 10/31/23 1458) iopamidol (Isovue-370) 76 % injection 75 mL (75 mL IntraVENous Given 10/31/23 1556) methylPREDNISolone sod suc (PF) (SOLU-Medrol) 40 MG injection 40 mg (40 mg IntraVENous Given 10/31/23 1715) ED care was supervised by Dr. Campos who independently examined and evaluated the patient. Please see their attestation note for further details. In brief, Callie Kennedy is a 53 y.o. female who presented to the emergency department for evaluation of right lower quadrant abdominal pain nursing notes and medical records reviewed. Differential considerations included obstruction, abscess, colitis, diverticulitis, constipation Initial medical management includes fluids, Zofran, Toradol Other medications considered steroids -however, patient has alert for shortness of breath type reaction with cortisone. Patient states that this was an event that happened almost 10 years ago after she had a steroid injection in her neck at pain management. States that since then she has had the same injections, as well as IV and p.o. steroids without reaction. States that she can tolerate them and has done so without difficulty. Initial workup includes UA, CBC, CMP, lipase, CT abdomen pelvis Upon reassessment patient remains nontoxic and in no acute distress, sitting comfortably in bed with her present at the bedside, watching TV. Lab workup results CBC without evidence of leukocytosis or acute anemia, CMP without evidence of fluid electrolyte abnormality or AISHA, lipase within normal limits, UA without evidence of acute cystitis. Imaging results per radiology increased fecal residue throughout the colon is suggestive of constipation. No small bowel inflammatory change or dilatation is noted. Chronic conditions contributing to patients presentation include ulcerative colitis. Upon reevaluation, patient remains well-appearing and nontoxic in no acute distress. Abdomen nonacute. Discussed workup with patient, with all labs within normal limits and without evidence of an acute infectious or inflammatory process. Imaging negative for any acute process, though suggestive of constipation. Explained to patient that given history of ulcerative colitis, will treat with short dose of steroids, and recommended continue use of MiraLAX and other home medications for constipation. Patient is otherwise well-appearing with reassuring workup. Vital signs stable. As such is stable for discharge with close outpatient follow-up with her primary care provider in 3 days for symptom recheck. IV dose of steroids given prior to discharge, patient tolerated well without immediate complication or adverse reaction. Explained that she should continue to monitor symptoms and return to the emergency department she develop new or worsening symptoms such as, but not limited to, worsening abdominal pain, an inability to tolerate food or water by mouth, blood in the stool or vomit, or fever greater than 101. Expressed understanding with her present at the bedside and is comfortable and agreeable with plans for discharge. FINAL IMPRESSION 1. Constipation, unspecified constipation type 2. Right lower quadrant abdominal pain 3. History of ulcerative colitis DISPOSITION Discharge 10/31/2023 04:47:12 PM Shared decision making preformed. PATIENT REFERRED TO: [place] [phone] On 11/03/2023 For symptom recheck. DISCHARGE MEDICATIONS: Discharge Medication List as of 10/31/2023 4:50 PM START taking these medications Details polyethylene glycol, PEG, 3350 (Miralax) 17 g packet Take 17 g by mouth daily for 3 days., Starting 10/31/2023, Until Ghada 11/03/2023, Normal predniSONE (Deltasone) 50 MG tablet Take 1 tablet (50 mg) by mouth daily for 5 days., Starting 10/31/2023, Until 11/05/2023, Normal (Comment: Please note this report has been produced using speech recognition software and may contain errors related to that system including errors in grammar, punctuation, and spelling, as well as words and phrases that may be inappropriate. If there are any questions or concerns please feel free to contact the dictating provider for clarification.) Ifeoma Wren PA-C (electronically signed) Emergency Medicine Provider Ifeoma Wren PA-C 10/31/23 1723 Emergency Department Encounter [facility] ED Patient: Callie Kennedy : 1970 Date of Evaluation: 10/31/2023 ED Supervising Physician: Nikunj Campos DO I personally saw Callie Kennedy and made/approved the management plan and take responsibility for the patient management. This will serve as my Supervisory note and shared attestation. I did perform a substantive portion of the visit including all aspects of the Medical Decision Making. I wore appropriate PPE for the entirety of this encounter. In brief, Callie Kennedy is a 53 y.o. that presents to the emergency department with right lower quadrant abdominal pain nausea vomiting. Feels like her ulcerative colitis is flaring up. Is not taking medications for ulcerative colitis, states she is trying to manage with diet. Patient has had prior appendectomy. No fevers or chills. Intermittent nausea and vomiting over the past 3 days as well. No bloody stool. Focused exam: Alert and oriented 4, no acute distress, nontoxic appearing, Pulm: clear to auscultation bilaterally, Cardiac: regular rate and rhythm, Abdomen: soft mild right lower quadrant tenderness, Neuro: no focal motor or sensory deficits. Brief ED course/MDM: Patient presents with right lower quadrant tenderness palpation, concerned that her ulcerative colitis may be flaring up. Patient given Toradol Solu-Medrol Zofran and fluids, CT scan pelvis shows constipation. Abdominal lab work is benign. Possible early ulcerative colitis flare versus constipation. Recommend MiraLAX steroids for home and outpatient GI follow-up. Diagnostics interpreted by me: none I personally discussed the patient's management with other clinicians: none All diagnostic, treatment, and disposition decisions were made by myself in conjunction with the [facility]. For all further details of the patient's emergency department visit, please see their documentation. (Comment: Please note this report has been produced using speech recognition software and may contain errors related to that system including errors in grammar, punctuation, and spelling, as well as words and phrases that may be inappropriate. If there are any questions or concerns please feel free to contact the dictating provider for clarification.) Nikunj Campos DO [employer] Nikunj Campos DO 10/31/23 1753 Pt presents with RLQ abd pain states started a few days ago. Pt with hx of ulcerative colitis. States has been having small BM and inflammation in abdomen. Pt states today is nausea and now not able to eat. Britni Heard RN 10/31/23 1341 documented in this encounter [facility] 10-31-2023 Physician Emergency department Note EMERGENCY DEPARTMENT ENCOUNTER Pt Name: Callie Kennedy Birthdate 1970 Date of evaluation: 10/31/2023 ED Provider: Ifeoma Wren PA-C CHIEF COMPLAINT Chief Complaint Patient presents with Abdominal Pain Nausea/ Vomiting x 2 days hx ulcerative colitis HISTORY OF PRESENT ILLNESS (Location/Symptom, Timing/Onset, Context/Setting, Quality, Duration, Modifying Factors, Severity) Note limiting factors. I wore appropriate PPE for the entirety of this encounter. HPI Callie Kennedy is a 53 y.o. female with PMH significant for ulcerative colitis who presents to the emergency department with her for evaluation of right lower quadrant abdominal pain. She states that for the last 2 to 3 weeks she has been dealing with constipation. She states that when she experiences UC flare she usually deals with intermittent constipation and vomiting that usually resolves with MiraLAX and Colace. States that she has been trying this for the last 2 to 3 weeks, but in the last 24 hours has noticed that her abdomen has become firm and increasingly tender to the right lower quadrant, and she experienced an episode of emesis this morning that lasted approximately 10 minutes. States that over the last 2 weeks she has been having small thin low volume stools, but denies bright red blood per rectum or blood in her stool. States that this morning all she was able to pass was liquid that she describes as watery from the rectum. States that she has had several surgeries within the abdomen including an appendectomy, multiple laparoscopies for stage V endometriosis, as well as a hysterectomy. Denies history of bowel obstruction. Nursing Notes were reviewed. Limitations to history: None Outside historians: None REVIEW OF SYSTEMS Review of Systems 14 systems reviewed, positives and pertinent negatives as per HPI. All other systems were reviewed and are negative. PAST MEDICAL HISTORY Past Medical History: Diagnosis Date Asthma Brachial plexus disorders DVT (deep vein thrombosis) in Neck sprain Pulmonary embolism (HCC) 2001 Shoulder sprain Ulcerative (chronic) enterocolitis (CMS/HCC) ([facility]) SURGICAL HISTORY Past Surgical History: Procedure Laterality Date ANTERIOR COMPARTMENT DECOMPRESSION [place] APPENDECTOMY BREAST LUMPECTOMY 1990 x3 SECTION (HISTORICAL) 02/27/2002 twins ESOPHAGOGASTRODUODENOSCOPY N/A 06/01/2022 Dr Dejesus [facility] HYSTERECTOMY 03/23/2010 Louisa @ [facility] LAPAROSCOPY DIAGNOSTIC / BIOPSY / ASPIRATION / LYSIS 2003 [id number] Dr. Jasso @ [facility] & Dr. Jarvis @ [place], [place] SHOULDER ARTHROSCOPY Right 12/13/2018 Dr. Hernandez @ [facility] SHOULDER SURGERY Right 11/23/2019 RT shoulder manipulation Under Anes, SHRUTI @ [facility] TENDON RELEASE 05/28/[address] Patel @ [facility] TRIGGER FINGER RELEASE Right 2006 [facility] CURRENT MEDICATIONS Discharge Medication List as of 10/31/2023 4:50 PM CONTINUE these medications which have NOT CHANGED Details albuterol 108 (90 Base) MCG/ACT inhaler Inhale 2 puffs 4 times daily as needed., Starting Tue12/05/2017, Historical Med fluticasone (Flonase) 50 MCG/ACT nasal spray Administer 1 spray into each nostril daily., Starting Tue09/20/2022, Historical Med Lactobacillus Rhamnosus, GG, (RA Probiotic Digestive Care) capsule Take 1 capsule by mouth in the morning., Starting Tue02/11/2020, Historical Med montelukast (Singulair) 10 MG tablet Take 10 mg by mouth daily., Starting Tue03/26/2022, Historical Med pantoprazole (ProtoNix) 40 MG EC tablet Take 1 tablet (40 mg) by mouth every morning (before breakfast). Do not crush, chew, or split. Do not start before June 04, 2022., Starting Tue06/04/2022, Until 06/04/2023, Normal traZODone (Desyrel) 100 MG tablet Take 100 mg by mouth Nightly as needed., Starting Tue05/24/2022, Historical Med venlafaxine XR (Effexor XR) 75 MG 24 hr capsule Take 75 mg by mouth daily., Starting Tue05/23/2022, Historical Med ALLERGIES Alera [hydroquinone], Cortisone, and Codeine FAMILY HISTORY Family History Problem Relation Name Age of Onset Heart disease Father Arthritis Mother Heart disease Mother SOCIAL HISTORY Social History Socioeconomic History Marital status: Tobacco Use Smoking status: Former Smokeless tobacco: Never Vaping Use Vaping Use: Never used Substance and Sexual Activity Alcohol use: Not Currently Drug use: Never Social Determinants of Health Housing Stability: Low Risk (05/31/2022) Housing Stability Vital Sign Unable to Pay for Housing in the Last Year: No Number of Places Lived in the Last Year: 1 Unstable Housing in the Last Year: No SCREENINGS PHYSICAL EXAM ED Triage Vitals [10/31/23 1341] Temp Heart Rate Resp BP 36.9 C (98.5 F) 90 16 (!) 147/91 SpO2 Temp Source Heart Rate Source Patient Position 99 % Temporal Monitor -- BP Location FiO2 (%) -- -- Physical Exam Vitals and nursing note reviewed. Constitutional: General: She is not in acute distress. Appearance: She is well-developed. Comments: Nontoxic and in no acute distress. HENT: Head: Normocephalic and atraumatic. Eyes: Conjunctiva/sclera: Conjunctivae normal. Cardiovascular: Rate and Rhythm: Normal rate and regular rhythm. Heart sounds: No murmur heard. Pulmonary: Effort: Pulmonary effort is normal. No respiratory distress. Breath sounds: Normal breath sounds. Abdominal: Palpations: Abdomen is soft. Tenderness: There is no abdominal tenderness. Comments: Tenderness to palpation over the right lower quadrant with somewhat diminished bowel sounds. Abdomen soft without guarding or rebound. Musculoskeletal: General: No swelling. Cervical back: Neck supple. Skin: General: Skin is warm and dry. Capillary Refill: Capillary refill takes less than 2 seconds. Neurological: Mental Status: She is alert. Psychiatric: Mood and Affect: Mood normal. DIAGNOSTIC RESULTS RADIOLOGY (Per Emergency Physician): Interpretation per the Radiologist below, if available at the time of this note: CT abdomen pelvis w contrast Final Result Increased fecal residue throughout the colon is suggestive of constipation. No small bowel inflammatory change or dilatation is noted. Report Dictated on Electronically Signed By: Timothy Lucero MD Electronically Signed Date/Time: 10/31/2023 4:32 PM EDT LABS: Labs Reviewed CBC WITH AUTO DIFFERENTIAL - Abnormal Result Value Auto WBC 9.9 RBC 4.42 Hemoglobin 13.5 Hematocrit 38.2 MCV 86.4 MCH 30.5 MCHC 35.3 RDW 12.0 Platelets 371 MPV 9.5 nRBC 0.0 Neutrophils Relative 68.4 Lymphocytes Relative 24.3 Monocytes Relative 6.1 Eosinophils Relative 0.3 Basophils Relative 0.4 Immature Grans % 0.5 Neutrophils Absolute 6.8 Lymphocytes Absolute 2.4 Monocytes Absolute 0.6 Eosinophils Absolute 0.0 Basophils Absolute 0.0 Immature Grans Absolute 0.1 (*) COMPREHENSIVE METABOLIC PANEL - Normal SODIUM 141 POTASSIUM 3.8 CHLORIDE 104 CARBON DIOXIDE 27 ANION GAP 10 UREA NITROGEN 10 CREATININE 0.72 GLUCOSE 98 CALCIUM 9.3 AST (SGOT) 31 ALT 26 ALKALINE PHOSPHATASE 107 ALBUMIN 4.3 BILIRUBIN, TOTAL 0.4 TOTAL PROTEIN 7.5 eGFR >90.0 LIPASE - Normal LIPASE 77 COMPLETE URINALYSIS - Normal Color, Urine Colorless Clarity, Urine Clear pH, Urine 8.0 Leukocytes, Urine Negative Nitrite, Urine Negative Protein, Urine Negative Glucose, Urine Normal Bilirubin, Urine Negative Ketones, Urine Negative Urobilinogen, Urine Normal Blood, Urine Negative SPECIFIC GRAVITY OF URINE (NUMERIC) 1.011 COMPLETE URINALYSIS WITH REFLEX TO CULTURE Narrative: The following orders were created for panel order Urinalysis Complete with reflex to Culture. Procedure Abnormality Status --------- ------ Complete Urinalysis[[id number]] Normal Final result Please view results for these tests on the individual orders. All other labs were within normal range or not returned as of this dictation. EMERGENCY DEPARTMENT COURSE and DIFFERENTIAL DIAGNOSIS/MDM: Vitals: Vitals: 10/31/23 1341 BP: (!) 147/91 Pulse: 90 Resp: 16 Temp: 36.9 C (98.5 F) TempSrc: Temporal SpO2: 99% Medications ondansetron (Zofran) injection 4 mg (4 mg IntraVENous Given 10/31/23 1458) sodium chloride 0.9 % bolus 1,000 mL (0 mL IntraVENous Stopped 10/31/23 1719) ketorolac (Toradol) injection 15 mg (15 mg IntraVENous Given 10/31/23 1458) iopamidol (Isovue-370) 76 % injection 75 mL (75 mL IntraVENous Given 10/31/23 1556) methylPREDNISolone sod suc (PF) (SOLU-Medrol) 40 MG injection 40 mg (40 mg IntraVENous Given 10/31/23 1715) ED care was supervised by Dr. Campos who independently examined and evaluated the patient. Please see their attestation note for further details. In brief, Callie Kennedy is a 53 y.o. female who presented to the emergency department for evaluation of right lower quadrant abdominal pain nursing notes and medical records reviewed. Differential considerations included obstruction, abscess, colitis, diverticulitis, constipation Initial medical management includes fluids, Zofran, Toradol Other medications considered steroids -however, patient has alert for shortness of breath type reaction with cortisone. Patient states that this was an event that happened almost 10 years ago after she had a steroid injection in her neck at pain management. States that since then she has had the same injections, as well as IV and p.o. steroids without reaction. States that she can tolerate them and has done so without difficulty. Initial workup includes UA, CBC, CMP, lipase, CT abdomen pelvis Upon reassessment patient remains nontoxic and in no acute distress, sitting comfortably in bed with her present at the bedside, watching TV. Lab workup results CBC without evidence of leukocytosis or acute anemia, CMP without evidence of fluid electrolyte abnormality or AISHA, lipase within normal limits, UA without evidence of acute cystitis. Imaging results per radiology increased fecal residue throughout the colon is suggestive of constipation. No small bowel inflammatory change or dilatation is noted. Chronic conditions contributing to patients presentation include ulcerative colitis. Upon reevaluation, patient remains well-appearing and nontoxic in no acute distress. Abdomen nonacute. Discussed workup with patient, with all labs within normal limits and without evidence of an acute infectious or inflammatory process. Imaging negative for any acute process, though suggestive of constipation. Explained to patient that given history of ulcerative colitis, will treat with short dose of steroids, and recommended continue use of MiraLAX and other home medications for constipation. Patient is otherwise well-appearing with reassuring workup. Vital signs stable. As such is stable for discharge with close outpatient follow-up with her primary care provider in 3 days for symptom recheck. IV dose of steroids given prior to discharge, patient tolerated well without immediate complication or adverse reaction. Explained that she should continue to monitor symptoms and return to the emergency department she develop new or worsening symptoms such as, but not limited to, worsening abdominal pain, an inability to tolerate food or water by mouth, blood in the stool or vomit, or fever greater than 101. Expressed understanding with her present at the bedside and is comfortable and agreeable with plans for discharge. FINAL IMPRESSION 1. Constipation, unspecified constipation type 2. Right lower quadrant abdominal pain 3. History of ulcerative colitis DISPOSITION Discharge 10/31/2023 04:47:12 PM Shared decision making preformed. PATIENT REFERRED TO: [address] [facility] [phone] On 11/03/2023 For symptom recheck. DISCHARGE MEDICATIONS: Discharge Medication List as of 10/31/2023 4:50 PM START taking these medications Details polyethylene glycol, PEG, 3350 (Miralax) 17 g packet Take 17 g by mouth daily for 3 days., Starting 10/31/2023, Until Ghada 11/03/2023, Normal predniSONE (Deltasone) 50 MG tablet Take 1 tablet (50 mg) by mouth daily for 5 days., Starting 10/31/2023, Until 11/05/2023, Normal (Comment: Please note this report has been produced using speech recognition software and may contain errors related to that system including errors in grammar, punctuation, and spelling, as well as words and phrases that may be inappropriate. If there are any questions or concerns please feel free to contact the dictating provider for clarification.) Ifeoma Wren PA-C (electronically signed) Emergency Medicine Provider Ifeoma Wren PA-C 10/31/23 1723 [facility] 10-31-2023 Physician Emergency department Note Emergency Department Encounter [facility] ED Patient: Callie Kennedy : 1970 Date of Evaluation: 10/31/2023 ED Supervising Physician: Nikunj Campos DO I personally saw Callie Kennedy and made/approved the management plan and take responsibility for the patient management. This will serve as my Supervisory note and shared attestation. I did perform a substantive portion of the visit including all aspects of the Medical Decision Making. I wore appropriate PPE for the entirety of this encounter. In brief, Callie Kennedy is a 53 y.o. that presents to the emergency department with right lower quadrant abdominal pain nausea vomiting. Feels like her ulcerative colitis is flaring up. Is not taking medications for ulcerative colitis, states she is trying to manage with diet. Patient has had prior appendectomy. No fevers or chills. Intermittent nausea and vomiting over the past 3 days as well. No bloody stool. Focused exam: Alert and oriented 4, no acute distress, nontoxic appearing, Pulm: clear to auscultation bilaterally, Cardiac: regular rate and rhythm, Abdomen: soft mild right lower quadrant tenderness, Neuro: no focal motor or sensory deficits. Brief ED course/MDM: Patient presents with right lower quadrant tenderness palpation, concerned that her ulcerative colitis may be flaring up. Patient given Toradol Solu-Medrol Zofran and fluids, CT scan pelvis shows constipation. Abdominal lab work is benign. Possible early ulcerative colitis flare versus constipation. Recommend MiraLAX steroids for home and outpatient GI follow-up. Diagnostics interpreted by me: none I personally discussed the patient's management with other clinicians: none All diagnostic, treatment, and disposition decisions were made by myself in conjunction with the AKIKO. For all further details of the patient's emergency department visit, please see their documentation. (Comment: Please note this report has been produced using speech recognition software and may contain errors related to that system including errors in grammar, punctuation, and spelling, as well as words and phrases that may be inappropriate. If there are any questions or concerns please feel free to contact the dictating provider for clarification.) Nikunj Campos DO [facility] Nikunj Campos DO 10/31/23 [id number] [employer] Phone: 08-25-2023 Miscellaneous Notes 3 Attempts to get in contact with patient. Patient reading [employer] messages with no response. Closing encounter. Suzette Reece RN August 25, 2023 8:22 AM Third attempt to get in contact with patient. Voicemail left for patient. [employer] message sent to patient as well. [employer] sent at 10:28 on 08/24/2023 Ez Braxton, We have received a refill request on Estrace cream. We have made several phone call attempts to get in contact with you. Please call the RN at [phone] to answer the following questions. Do you still use this medication? And Do you need this refilled? Thanks, Your healthcare team. " If no call back after this attempt, closing encounter. Suzette Reece RN August 24, 2023 10:29 AM Second attempt to get in contact with patient. Voicemail left for patient to call back. Need to see if patient is taking this medication and if she needs the refill. Suzette Reece RN August 17, 2023 1:44 PM Called patient and left voicemail for patient to call back. Pharmacy sent this request and want to clarify if she needs this refilled or not. Refill(s) request: Requested Prescriptions Pending Prescriptions Disp Refills estradiol (ESTRACE) 0.01 % (0.1 mg/gram) vaginal cream [Pharmacy Med Name: ESTRADIOL 0.01% CREAM] 42.5 g 2 Sig: USE 0.5 G VAGINALLY THREE TIMES A WEEK. Request from: Pharmacy Last order: estradiol (ESTRACE) 0.01 % (0.1 mg/gram) vaginal cream 42.5 g 2 11/19/2022 -- Sig: Use 0.5 g vaginally three times a week. Sent to pharmacy as: estradiol (ESTRACE) 0.01 % (0.1 mg/gram) vaginal cream Class: Normal Route: VAGINAL Order: [id number] Suzette Reece RN August 15, 2023 4:12 PM documented in this encounter [facility] 08-02-2023 Hospital Discharge instructions Niles Christopher MD - 08/02/2023 6:04 PM EST Please return to the Emergency Department immediately for new or worsening symptoms or any new concerns. Please follow-up with [your primary care doctor] within the next [3-5] days. You may take ibuprofen and/or Tylenol as needed for discomfort according to package instructions. The following attachments cannot be sent through Care Everywhere.Upper Respiratory Infection ED (Nigerian)documented in this encounter [facility] 02-27-2024 Emergency department Note Emergency Department Encounter [facility] ED Patient: Callie Kennedy : 1970 Date of Evaluation: 08/02/2023 ED Provider: Niles Christopher MD Note: I wore an N95 mask and gloves during this encounter. CHIEF COMPLAINT: Nasal congestion Chief Complaint Patient presents with Nasal Congestion HPI: Callie Kennedy is a 53 y.o. female with PMH per EMR including asthma, prior venous thromboembolism, presents with concern for nasal congestion. Patient reports she is felt unwell for the last 3 days, symptoms including nasal congestion, malaise, fatigue, body aches, sore throat, dry cough, chest congestion, she denies chest pain otherwise, shortness of breath, abdominal pain, vomiting, diarrhea, lower extremity or calf pain, headache, reports she had recent right hand surgery, endorses mild ongoing postoperative discomfort, denies any other related symptoms, reports recent positive sick contact-family member with similar symptoms. REVIEW OF SYSTEMS: Pertinent positives and negatives as per HPI. HISTORIES: PAST MEDICAL HISTORY: as per HPI SOCIAL HISTORY: Per EMR history of tobacco use MEDICATIONS: Nursing notes and EMR reviewed ALLERGIES: Nursing notes and EMR reviewed PHYSICAL EXAM: Vital signs: reviewed General: no apparent discomfort, well appearing Eyes: no conjunctival injection, eyes tracking HEENT: Airway patent, no stridor, no hoarseness No posterior oropharyngeal swelling or exudates, mildly erythematous Uvula midline No sublingual swelling No submandibular swelling or cervical lymphadenopathy Neck: No nuchal rigidity, no limitation range of motion including flexion and extension, no neck tenderness Cardiovascular: regular rhythm, normal rate, radial pulses palpable bilaterally Respiratory: non-labored breathing, breath sounds clear, no wheezing crackles or rhonchi, no active coughing, speaks in full sentences Gastrointestinal: soft, non-distended, non-tender to palpation throughout Extremities: no obvious deformity, non edematous bilateral lower extremities, no calf tenderness. Right hand with ecchymosis over the palmar volar aspect with bandage in place, no localizing tenderness erythema warmth or bony deformity. Integumentary: warm, dry Neurologic: alert, no obvious neurologic deficits MEDICAL DECISION MAKING: Medications - No data to display Callie Kennedy is a 53 y.o. female who presents as above, multiple symptoms as above, concerning for viral URI, viral pharyngitis, strep pharyngitis, pneumonia, low suspicion for alternative acute cardiopulmonary process including ACS, PE, discussed management, patient agrees to obtain workup to evaluate including chest x-ray, EKG, strep and viral panel, declines further workup including laboratory valuation. Strep test negative Viral test negative for COVID RSV and influenza CXR obtained, interpreted per radiologist no consolidation pleural effusion or pneumothorax, normal cardiomediastinal silhouette EKG obtained, per my interpretation, notable for sinus rhythm, 86 bpm (tachycardia resolved) Patient informed of findings, discussed further management, she agrees with plan for discharge, recommend close PCP follow-up 3-5 days, NSAIDs for discomfort, strict return precautions provided, patient in agreement with plan, stable for discharge. DIAGNOSIS: Viral URI DISPOSITION: Discharge PRESCRIPTIONS: New Prescriptions No medications on file Comment: Please note this report has been produced using speech recognition software and may contain errors related to that system including errors in grammar, punctuation, and spelling, as well as words and phrases that may be inappropriate. If there are any questions or concerns please feel free to contact the dictating provider for clarification. Niles Christopher MD Acute Care [facility] Niles Christopher MD 08/02/232113 Patient complains of congestion, pressure and coughing . Patient endorses weakness at this time. Symptoms started Tuesday. Denies any other sx at this time. documented in this encounter [facility] 08-02-2023 Emergency department Triage note Patient complains of congestion, pressure and coughing . Patient endorses weakness at this time. Symptoms started Tuesday. Denies any other sx at this time. [facility] 08-02-2023 Physician Emergency department Note Emergency Department Encounter [facility] ED Patient: Callei Kennedy : 1970 Date of Evaluation: 08/02/2023 ED Provider: Niles Christopher MD Note: I wore an N95 mask and gloves during this encounter. CHIEF COMPLAINT: Nasal congestion Chief Complaint Patient presents with Nasal Congestion HPI: Callie Kennedy is a 53 y.o. female with PMH per EMR including asthma, prior venous thromboembolism, presents with concern for nasal congestion. Patient reports she is felt unwell for the last 3 days, symptoms including nasal congestion, malaise, fatigue, body aches, sore throat, dry cough, chest congestion, she denies chest pain otherwise, shortness of breath, abdominal pain, vomiting, diarrhea, lower extremity or calf pain, headache, reports she had recent right hand surgery, endorses mild ongoing postoperative discomfort, denies any other related symptoms, reports recent positive sick contact-family member with similar symptoms. REVIEW OF SYSTEMS: Pertinent positives and negatives as per HPI. HISTORIES: PAST MEDICAL HISTORY: as per HPI SOCIAL HISTORY: Per EMR history of tobacco use MEDICATIONS: Nursing notes and EMR reviewed ALLERGIES: Nursing notes and EMR reviewed PHYSICAL EXAM: Vital signs: reviewed General: no apparent discomfort, well appearing Eyes: no conjunctival injection, eyes tracking HEENT: Airway patent, no stridor, no hoarseness No posterior oropharyngeal swelling or exudates, mildly erythematous Uvula midline No sublingual swelling No submandibular swelling or cervical lymphadenopathy Neck: No nuchal rigidity, no limitation range of motion including flexion and extension, no neck tenderness Cardiovascular: regular rhythm, normal rate, radial pulses palpable bilaterally Respiratory: non-labored breathing, breath sounds clear, no wheezing crackles or rhonchi, no active coughing, speaks in full sentences Gastrointestinal: soft, non-distended, non-tender to palpation throughout Extremities: no obvious deformity, non edematous bilateral lower extremities, no calf tenderness. Right hand with ecchymosis over the palmar volar aspect with bandage in place, no localizing tenderness erythema warmth or bony deformity. Integumentary: warm, dry Neurologic: alert, no obvious neurologic deficits MEDICAL DECISION MAKING: Medications - No data to display Callie Kennedy is a 53 y.o. female who presents as above, multiple symptoms as above, concerning for viral URI, viral pharyngitis, strep pharyngitis, pneumonia, low suspicion for alternative acute cardiopulmonary process including ACS, PE, discussed management, patient agrees to obtain workup to evaluate including chest x-ray, EKG, strep and viral panel, declines further workup including laboratory valuation. Strep test negative Viral test negative for COVID RSV and influenza CXR obtained, interpreted per radiologist no consolidation pleural effusion or pneumothorax, normal cardiomediastinal silhouette EKG obtained, per my interpretation, notable for sinus rhythm, 86 bpm (tachycardia resolved) Patient informed of findings, discussed further management, she agrees with plan for discharge, recommend close PCP follow-up 3-5 days, NSAIDs for discomfort, strict return precautions provided, patient in agreement with plan, stable for discharge. DIAGNOSIS: Viral URI DISPOSITION: Discharge PRESCRIPTIONS: New Prescriptions No medications on file Comment: Please note this report has been produced using speech recognition software and may contain errors related to that system including errors in grammar, punctuation, and spelling, as well as words and phrases that may be inappropriate. If there are any questions or concerns please feel free to contact the dictating provider for clarification. Niles Christopher MD Acute Care [facility] Niles Christopher MD 08/02/232113 [facility] 07-18-2023 History of Present illness Narrative Radiology Service Progress Note PATIENT NAME: Callie Kennedy DATE OF SERVICE: July 18, 2023 TIME: 2:09 PM PATIENT IDENTITY VERIFICATION COMPLETED USING TWO (2) IDENTIFIERS: Name and Date of confirmed by patient verbally. FALL SCREENING: Has the patient had 2 falls in the last year or 1 fall with injury or currently using an Ambulatory Assistive Device (Walker, Cane, Wheelchair, Crutches, etc.)? No PATIENT GENDER DATA: Female. status: : No status: NO. PATIENT RELEVANT IMPLANT DATA REVIEWED: Not Applicable PATIENT PRESENTS WITH AN IMPLANTABLE OR ATTACHED DOT COMPLIANCE COORDINATOR: No RADIOLOGY DEPARTMENT: General X-ray: Exam(s) Completed: Spine X-Ray(s): Thoracic PERIPHERAL IV DATA: Not applicable SIGNED BY: RT Bob(R) July 18, 2023 2:09 PM documented in this encounter [facility] 07-15-2023 Hospital Discharge instructions Xin Bai PA-C - 07/15/2023 9:12 PM EST Return to the ER with new or worsening symptoms including uncontrolled pain, numbness or weakness of your foot or toes, or inability to walk. Follow up with your PCP for continued evaluation and treatment as needed. Wear loose fitting shoes, elevate your feet, and use Tylenol and Ibuprofen for pain control. The following attachments cannot be sent through Care Everywhere.Bunion Discharge Instructions (Nigerian)documented in this encounter [facility] 07-15-2023 Emergency department Note EMERGENCY DEPARTMENT ENCOUNTER Pt Name: Callie Kennedy Birthdate 1970 Date of evaluation: 07/15/2023 ED Provider: Xin Bai PA-C Patient seen independently within my scope of practice with an Emergency Medicine attending available for supervision. CHIEF COMPLAINT Chief Complaint Patient presents with Foot Pain HISTORY OF PRESENT ILLNESS (Location/Symptom, Timing/Onset, Context/Setting, Quality, Duration, Modifying Factors, Severity) Note limiting factors. I wore appropriate PPE for the entirety of this encounter. HPI Callie Kennedy is a 53 y.o. who presents to the emergency department with complaint of left foot pain. Patient says that she started to experience some aching pain on the lateral aspect of her left foot earlier in the evening. Says that she noticed a bump on the side of this foot. She does not remember any sort of injury or trauma that occurred recently. She does not have any numbness, tingling, weakness. No redness, warmth, or swelling. No calf pain or tenderness. Nursing Notes were reviewed. Limitations to history: None Outside historians: None REVIEW OF SYSTEMS Review of Systems Constitutional: Negative for chills and fever. HENT: Negative for congestion and sore throat. Eyes: Negative for visual disturbance. Respiratory: Negative for cough and shortness of breath. Cardiovascular: Negative for chest pain. Gastrointestinal: Negative for abdominal pain, nausea and vomiting. Genitourinary: Negative for dysuria and hematuria. Musculoskeletal: Negative for arthralgias and myalgias. Left foot pain Skin: Negative for color change and rash. Neurological: Negative for dizziness and syncope. Psychiatric/Behavioral: Negative. All other systems reviewed and are negative. Pertinent positives and negatives as per HPI. PAST MEDICAL HISTORY Past Medical History: Diagnosis Date Asthma Brachial plexus disorders DVT (deep vein thrombosis) in Neck sprain Pulmonary embolism ([facility]) 2001 Shoulder sprain Ulcerative (chronic) enterocolitis (CMS/HCC) (HCC) SURGICAL HISTORY Past Surgical History: Procedure Laterality Date ANTERIOR COMPARTMENT DECOMPRESSION 2016 [place] APPENDECTOMY BREAST LUMPECTOMY 1991 x3 SECTION (HISTORICAL) 02/27/2002 twins ESOPHAGOGASTRODUODENOSCOPY N/A 06/01/2022 Dr Dejesus [facility] HYSTERECTOMY 03/23/2010 Louisa @ [facility] LAPAROSCOPY DIAGNOSTIC / BIOPSY / ASPIRATION / LYSIS 2003 [id number] Dr. Jasso @ [facility] & Dr. Jarvis @ [place], [place] SHOULDER ARTHROSCOPY Right 12/13/2018 Dr. Hernandez @ [facility] SHOULDER SURGERY Right 11/23/2019 RT shoulder manipulation Under Anes, K @ [facility] TENDON RELEASE 05/28/[address] Patel @ [facility] TRIGGER FINGER RELEASE Right 2006 [facility] CURRENT MEDICATIONS Previous Medications ALBUTEROL 108 (90 BASE) MCG/ACT INHALER Inhale 2 puffs 4 times daily as needed. FLUTICASONE (FLONASE) 50 MCG/ACT NASAL SPRAY Administer 1 spray into each nostril daily. LACTOBACILLUS RHAMNOSUS, GG, ( PROBIOTIC DIGESTIVE CARE) CAPSULE Take 1 capsule by mouth in the morning. MONTELUKAST (SINGULAIR) 10 MG TABLET Take 10 mg by mouth daily. PANTOPRAZOLE (PROTONIX) 40 MG EC TABLET Take 1 tablet (40 mg) by mouth every morning (before breakfast). Do not crush, chew, or split. Do not start before June 04, 2022. TRAZODONE (DESYREL) 100 MG TABLET Take 100 mg by mouth Nightly as needed. VENLAFAXINE XR (EFFEXOR XR) 75 MG 24 HR CAPSULE Take 75 mg by mouth daily. ALLERGIES Alera [hydroquinone], Cortisone, and Codeine FAMILY HISTORY Family History Problem Relation Name Age of Onset Heart disease Father Arthritis Mother Heart disease Mother SOCIAL HISTORY Social History Socioeconomic History Marital status: Tobacco Use Smoking status: Former Smokeless tobacco: Never Vaping Use Vaping Use: Never used Substance and Sexual Activity Alcohol use: Not Currently Drug use: Never Social Determinants of Health Housing Stability: Low Risk (05/31/2022) Housing Stability Vital Sign Unable to Pay for Housing in the Last Year: No Number of Places Lived in the Last Year: 1 Unstable Housing in the Last Year: No SCREENINGS PHYSICAL EXAM ED Triage Vitals [07/15/232013] Temp Heart Rate Resp BP 36.9 C (98.4 F) 81 20 (!) 132/90 SpO2 Temp Source Heart Rate Source Patient Position 96 % Temporal Monitor -- BP Location FiO2 (%) -- -- Physical Exam Vitals and nursing note reviewed. Constitutional: General: She is not in acute distress. Appearance: She is well-developed. Cardiovascular: Rate and Rhythm: Normal rate and regular rhythm. Heart sounds: No murmur heard. Pulmonary: Effort: Pulmonary effort is normal. No respiratory distress. Breath sounds: Normal breath sounds. Abdominal: General: Bowel sounds are normal. There is no distension. Palpations: Abdomen is soft. Tenderness: There is no abdominal tenderness. There is no guarding or rebound. Musculoskeletal: Right lower leg: No edema. Left lower leg: No edema. Comments: TTP over the lateral aspect of the left foot. No evidence of injury, trauma, wound, or deformity. Small, moveable, round cystic lesion noted. No redness, warmth or swelling. Palpable DP and PT pulses. Normal range of motion in ankle, foot, and toes. Skin warm and dry. Sensation intact to light touch. No calf pain or tenderness, calf swelling, redness, or warmth. Skin: General: Skin is warm and dry. Capillary Refill: Capillary refill takes less than 2 seconds. Neurological: Mental Status: She is alert and oriented to person, place, and time. Psychiatric: Mood and Affect: Mood normal. Behavior: Behavior normal. DIAGNOSTIC RESULTS RADIOLOGY (Per Emergency Physician): Interpretation per the Radiologist below, if available at the time of this note: XR foot 3+ views left (Results Pending) LABS: Labs Reviewed - No data to display All other labs were within normal range or not returned as of this dictation. EMERGENCY DEPARTMENT COURSE and DIFFERENTIAL DIAGNOSIS/MDM: Vitals: Vitals: 07/15/232013 BP: (!) 132/90 Pulse: 81 Resp: 20 Temp: 36.9 C (98.4 F) TempSrc: Temporal SpO2: 96% Medications ibuprofen tablet 600 mg (has no administration in time range) MDM elements: The patient presented with chief complaint of right foot pain. On exam is alert, oriented, no acute distress per vital signs and unremarkable. intact bilateral extremities with no evidence of injury, trauma, wound or deformity. No calf pain or tenderness.. The differential diagnosis associated with this patient's presentation includes fracture, dislocation, contusion. Our workup consisted of ordering/reviewing: X-ray evaluation without sign of acute fracture or dislocation. Noted has a bunion. Patient provided with ibuprofen and reevaluation ports significant improvement of her pain. Ambulatory without difficulty. Low suspicion for further acute traumatic process. Low suspicion for infection. No redness, warmth, or skin changes. Does not appear to be consistent with DVT as she has no calf pain or tenderness. Will discuss return precautions, outpatient follow-up, discharged in stable addition with continued symptomatic management. The patient will be Discharged. Patient is in agreement with this plan. PROCEDURES: Unless otherwise noted below, none Procedures CRITICAL CARE TIME FINAL IMPRESSION No diagnosis found. DISPOSITION PATIENT REFERRED TO: No follow-up provider specified. DISCHARGE MEDICATIONS: New Prescriptions No medications on file (Comment: Please note this report has been produced using speech recognition software and may contain errors related to that system including errors in grammar, punctuation, and spelling, as well as words and phrases that may be inappropriate. If there are any questions or concerns please feel free to contact the dictating provider for clarification.) Xin Bai PA-C (electronically signed) Emergency Medicine Provider Xin Bai PA-C 07/15/232127 Pt presents to ED for left foot pain and swelling. Pt denies injury or trauma documented in this encounter [facility] 07-15-2023 Emergency department Triage note Pt presents to ED for left foot pain and swelling. Pt denies injury or trauma [facility] 07-15-2023 Physician Emergency department Note EMERGENCY DEPARTMENT ENCOUNTER Pt Name: Callie Kennedy Birthdate 1970 Date of evaluation: 07/15/2023 ED Provider: Xin Bai PA-C Patient seen independently within my scope of practice with an Emergency Medicine attending available for supervision. CHIEF COMPLAINT Chief Complaint Patient presents with Foot Pain HISTORY OF PRESENT ILLNESS (Location/Symptom, Timing/Onset, Context/Setting, Quality, Duration, Modifying Factors, Severity) Note limiting factors. I wore appropriate PPE for the entirety of this encounter. HPI Callie Kennedy is a 53 y.o. who presents to the emergency department with complaint of left foot pain. Patient says that she started to experience some aching pain on the lateral aspect of her left foot earlier in the evening. Says that she noticed a bump on the side of this foot. She does not remember any sort of injury or trauma that occurred recently. She does not have any numbness, tingling, weakness. No redness, warmth, or swelling. No calf pain or tenderness. Nursing Notes were reviewed. Limitations to history: None Outside historians: None REVIEW OF SYSTEMS Review of Systems Constitutional: Negative for chills and fever. HENT: Negative for congestion and sore throat. Eyes: Negative for visual disturbance. Respiratory: Negative for cough and shortness of breath. Cardiovascular: Negative for chest pain. Gastrointestinal: Negative for abdominal pain, nausea and vomiting. Genitourinary: Negative for dysuria and hematuria. Musculoskeletal: Negative for arthralgias and myalgias. Left foot pain Skin: Negative for color change and rash. Neurological: Negative for dizziness and syncope. Psychiatric/Behavioral: Negative. All other systems reviewed and are negative. Pertinent positives and negatives as per HPI. PAST MEDICAL HISTORY Past Medical History: Diagnosis Date Asthma Brachial plexus disorders DVT (deep vein thrombosis) in Neck sprain Pulmonary embolism (HCC) 2001 Shoulder sprain Ulcerative (chronic) enterocolitis (CMS/HCC) (HCC) SURGICAL HISTORY Past Surgical History: Procedure Laterality Date ANTERIOR COMPARTMENT DECOMPRESSION 2016 [place] APPENDECTOMY BREAST LUMPECTOMY 1990 x3 SECTION (HISTORICAL) 02/27/2002 twins ESOPHAGOGASTRODUODENOSCOPY N/A 06/01/2022 Dr Dejesus [facility] HYSTERECTOMY 03/23/2010 [place] @ [facility] LAPAROSCOPY DIAGNOSTIC / BIOPSY / ASPIRATION / LYSIS 2004 [id number] Dr. Jasso @ [facility] & Dr. Jarvis @ [place], [place] SHOULDER ARTHROSCOPY Right 12/13/2018 Dr. Hernandez @ [facility] SHOULDER SURGERY Right 11/23/2019 RT shoulder manipulation Under Anes, MSK @ [facility] TENDON RELEASE 05/28/[address] Patel @ [facility] TRIGGER FINGER RELEASE Right 2006 [facility] CURRENT MEDICATIONS Previous Medications ALBUTEROL 108 (90 BASE) MCG/ACT INHALER Inhale 2 puffs 4 times daily as needed. FLUTICASONE (FLONASE) 50 MCG/ACT NASAL SPRAY Administer 1 spray into each nostril daily. LACTOBACILLUS RHAMNOSUS, GG, ( PROBIOTIC DIGESTIVE CARE) CAPSULE Take 1 capsule by mouth in the morning. MONTELUKAST (SINGULAIR) 10 MG TABLET Take 10 mg by mouth daily. PANTOPRAZOLE (PROTONIX) 40 MG EC TABLET Take 1 tablet (40 mg) by mouth every morning (before breakfast). Do not crush, chew, or split. Do not start before June 04, 2022. TRAZODONE (DESYREL) 100 MG TABLET Take 100 mg by mouth Nightly as needed. VENLAFAXINE XR (EFFEXOR XR) 75 MG 24 HR CAPSULE Take 75 mg by mouth daily. ALLERGIES Alera [hydroquinone], Cortisone, and Codeine FAMILY HISTORY Family History Problem Relation Name Age of Onset Heart disease Father Arthritis Mother Heart disease Mother SOCIAL HISTORY Social History Socioeconomic History Marital status: Tobacco Use Smoking status: Former Smokeless tobacco: Never Vaping Use Vaping Use: Never used Substance and Sexual Activity Alcohol use: Not Currently Drug use: Never Social Determinants of Health Housing Stability: Low Risk (05/31/2022) Housing Stability Vital Sign Unable to Pay for Housing in the Last Year: No Number of Places Lived in the Last Year: 1 Unstable Housing in the Last Year: No SCREENINGS PHYSICAL EXAM ED Triage Vitals [07/15/232013] Temp Heart Rate Resp BP 36.9 C (98.4 F) 81 20 (!) 132/90 SpO2 Temp Source Heart Rate Source Patient Position 96 % Temporal Monitor -- BP Location FiO2 (%) -- -- Physical Exam Vitals and nursing note reviewed. Constitutional: General: She is not in acute distress. Appearance: She is well-developed. Cardiovascular: Rate and Rhythm: Normal rate and regular rhythm. Heart sounds: No murmur heard. Pulmonary: Effort: Pulmonary effort is normal. No respiratory distress. Breath sounds: Normal breath sounds. Abdominal: General: Bowel sounds are normal. There is no distension. Palpations: Abdomen is soft. Tenderness: There is no abdominal tenderness. There is no guarding or rebound. Musculoskeletal: Right lower leg: No edema. Left lower leg: No edema. Comments: TTP over the lateral aspect of the left foot. No evidence of injury, trauma, wound, or deformity. Small, moveable, round cystic lesion noted. No redness, warmth or swelling. Palpable DP and PT pulses. Normal range of motion in ankle, foot, and toes. Skin warm and dry. Sensation intact to light touch. No calf pain or tenderness, calf swelling, redness, or warmth. Skin: General: Skin is warm and dry. Capillary Refill: Capillary refill takes less than 2 seconds. Neurological: Mental Status: She is alert and oriented to person, place, and time. Psychiatric: Mood and Affect: Mood normal. Behavior: Behavior normal. DIAGNOSTIC RESULTS RADIOLOGY (Per Emergency Physician): Interpretation per the Radiologist below, if available at the time of this note: XR foot 3+ views left (Results Pending) LABS: Labs Reviewed - No data to display All other labs were within normal range or not returned as of this dictation. EMERGENCY DEPARTMENT COURSE and DIFFERENTIAL DIAGNOSIS/MDM: Vitals: Vitals: 07/15/232013 BP: (!) 132/90 Pulse: 81 Resp: 20 Temp: 36.9 C (98.4 F) TempSrc: Temporal SpO2: 96% Medications ibuprofen tablet 600 mg (has no administration in time range) MDM elements: The patient presented with chief complaint of right foot pain. On exam is alert, oriented, no acute distress per vital signs and unremarkable. intact bilateral extremities with no evidence of injury, trauma, wound or deformity. No calf pain or tenderness.. The differential diagnosis associated with this patient's presentation includes fracture, dislocation, contusion. Our workup consisted of ordering/reviewing: X-ray evaluation without sign of acute fracture or dislocation. Noted has a bunion. Patient provided with ibuprofen and reevaluation ports significant improvement of her pain. Ambulatory without difficulty. Low suspicion for further acute traumatic process. Low suspicion for infection. No redness, warmth, or skin changes. Does not appear to be consistent with DVT as she has no calf pain or tenderness. Will discuss return precautions, outpatient follow-up, discharged in stable addition with continued symptomatic management. The patient will be Discharged. Patient is in agreement with this plan. PROCEDURES: Unless otherwise noted below, none Procedures CRITICAL CARE TIME FINAL IMPRESSION No diagnosis found. DISPOSITION PATIENT REFERRED TO: No follow-up provider specified. DISCHARGE MEDICATIONS: New Prescriptions No medications on file (Comment: Please note this report has been produced using speech recognition software and may contain errors related to that system including errors in grammar, punctuation, and spelling, as well as words and phrases that may be inappropriate. If there are any questions or concerns please feel free to contact the dictating provider for clarification.) Xin Bai PA-C (electronically signed) Emergency Medicine Provider Xin Bai PA-C 07/15/232127 [facility] 05-30-2023 Hospital Discharge instructions Chyna Santos PA-C - 05/30/2023 9:55 PM EST Please take your medications as prescribed, and follow-up with your PCP for continued evaluation and management. You have also been provided with a referral to urology given that you have described recurrent urinary tract infections. Please follow-up with them for further evaluation and management. Please return to the ED if you have any new or worsening symptoms. You have been prescribed an antibiotic for the treatment of your condition. It is very important to take the full course of medication as prescribed, even if you begin to feel better before the course is complete. Taking the full course helps to prevent partial treatment and combat antibiotic resistance. documented in this encounter [facility] 05-30-2023 Emergency department Note Pt presents to ED c/o UTI symptoms. Pt has urinary frequency and burning while urinating. Pt has hx of UTIs. documented in this encounter [facility] 05-30-2023 Emergency department Triage note Pt presents to ED c/o UTI symptoms. Pt has urinary frequency and burning while urinating. Pt has hx of UTIs. [facility] 02-01-2023 History of Present illness Narrative February 01, 2023 An order has been received for a Home Sleep Test from [facility] Staff/Rules Examiner Staff Orders. Visit prep complete - Please refer to the sleep study order (under procedures tab) for protocol details and special instructions. Scheduled for 02/03/2023. Insurance: Payor: DAGO / Plan: DAGO [facility] FEP PPO / Product Type: PPO / Payer/Plan Subscr Sex Relation Sub. Ins. ID Effective Group Num 1. [facility] DEPT* CALLIE KENNEDY 1970 Female Self [id number] 04/[birth year]/12 [address] 2. [facility] CALL[facility] ORTIZ 1970 Female Self [id number] 11/19/22 [id number] Breann Bell 2022 Standing PSG Orders signed in the last 90 days None Future PSG Orders signed in the last 90 days None All Prior Sleep Studies (past 365 days) Some values may be hidden. Unless noted otherwise, only the newest values recorded on each date are displayed. Sleep Studies No data to display. 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 Had thoracic outlet decompression surgery on the right in 2017 PMH - PAST MEDICAL HISTORY OF right shoulder work injury, resolving with Physical Therapy and pain management Pulmonary embolism (HCC) 06/06/2001 sister has a clotting disorder but patient wasn't tested. This occured when she was on bedrest with twins developed bilateral DVT, then PE. Was on heparin until they were born (delivered at 30 weeks) was on an oral blood thinner for six months and then was taken off Regional enteritis of unspecified site Crohn disease TOS (thoracic outlet syndrome) The medical record was reviewed to determine if the proposed sleep study conforms to the [facility] Practice Parameters for the Indications for Polysomnography and Related Procedures, or if the sleep study is indicated for other reasons. Indications for study: SRIKANTH suspected with comorbid medical or sleep disorders: [id number] pulmonary disease Sleep study to be performed: Home Sleep Apnea Test (HSAT) Special instructions: None-follow laboratory protocol [facility] Staff Note: I have read the above protocol, edited as needed, and agree to the plan. Kristian Aj DO 4:02 PM, 02/01/2023 documented in this encounter [facility] 11-19-2022 Instructions Leonie Crooks MD - 11/19/2022 3:18 PM EDT UTI Prevention Drink water Void frequently Avoid carbonated drinks Use vaginal estrogen cream 3 times a week if prescribed Cranberry tablets 36 PAC daily D Mannose- 2 grams per day Consider a bidet Use Probiotic for bowel day documented in this encounter [facility] 11-19-2022 History of Present illness Narrative NEW PATIENT CONSULTATION / HISTORY & PHYSICAL Referred By: [address]lette [address] [facility] [id number] [place] [facility] [employer] Callie Kennedy is a 52 year old woman who presents with complaints of dyspareunia . She reports symptoms present for 6 month(s). She describes the pain as sharp and stabbing pain. She states it feels sore afterwards but the sharp pain goes away. Symptoms are worsening She has not been treated in the past. She additionally has recurrent UTIs. She had pyelonephritis within the past year. She reports incontinence. She reports leak with cough or sneeze. She reports leak with urgency. She voids 7-10 times per day and 2-3 times per night. She uses pantiliners per day. She reports bladder emptying with incomplete emptying. She reports 3-6 UTIs in the past year. She deniesdysuria and hematuria. She denies vaginal bulging and pressure. She is sexually active. She does experience dyspareunia. She reports vaginal dryness. She is menopausal. Hysterectomy in 2009 She also reports ulcerative colitis- in remission. Occasional diarrhea. She is managed with GI . She reports 1 bowel movements per day outside of flares. She states flares are primarily food related MEDICATIONS: none. PREVIOUS SURGERIES: Endometriosis surgery- [place]- stage 4 endometriosis . 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 Had thoracic outlet decompression surgery on the right in 2017 PMH - PAST MEDICAL HISTORY OF right shoulder work injury, resolving with Physical Therapy and pain management Pulmonary embolism (HCC) 06/06/2001 sister has a clotting disorder but patient wasn't tested. This occured when she was on bedrest with twins developed bilateral DVT, then PE. Was on heparin until they were born (delivered at 30 weeks) was on an oral blood thinner for six months and then was taken off Regional enteritis of unspecified site Crohn disease TOS (thoracic outlet syndrome) PAST SURGICAL HISTORY Procedure Laterality Date DELIVERY ONLY 02/27/2002 emergency section for 30wk gest twins EXC CYST/ABERRANT BREAST TISSUE OPEN 1/> LESION 04/25/2009 RIGHT with benign results EXC CYST/ABERRANT BREAST TISSUE OPEN 1/> LESION 04/25/2009 RIGHT with benign results EXCISE LYMPH NODE 04/25/2009 RIGHT with benign results LAPS ABD PRTM&OMENTUM DX W/WO SPEC BR/WA SPX 05/12/2001 Dr. Jasso, Endo, stage 4 LAPS ABD PRTM&OMENTUM DX W/WO SPEC BR/WA SPX 06/19/1999 Dr. Jasso, endometriosis LAPS ABD PRTM&OMENTUM DX W/WO SPEC BR/WA SPX 1997 Dr. Moralez, [place], [place] She found endo (1st dx. of endo) LAPS ABD PRTM&OMENTUM DX W/WO SPEC BR/WA SPX 08/07/2004 Dr. Jasso. Dx. L'scopy, RIGHT ovarian cystectomy, lysis of adhesions, rigid proctoscopy. (for RIGHT ovarian cyst, stage IV endometriosis LAPS ABD PRTM&OMENTUM DX W/WO SPEC BR/WA SPX 05/12/2001 Dr. Hussain Jasso.OPERATION: Diagnostic laparoscopy, resection of bilateral endometriomas, and lysis of adhesions LAPS ABD PRTM&OMENTUM DX W/WO SPEC BR/WA SPX 06/17/1999 Dr. Hussain Jasso. OPERATION: Laparoscopic excision of endometriosis. LAPS ABD PRTM&OMENTUM DX W/WO SPEC BR/WA SPX 06/17/1999 Dr. Payton OPERATION: Excision of rectal endometriosis, mobilization of the rectum and rigid sigmoidoscopy. ORTHOPEDICS SURGERY HX Right 12/13/2018 artoroscopic rt shoulder PAST SURGICAL HISTORY OF age 4 umbillical hernia PAST SURGICAL HISTORY OF breast cysts x3 surgeries PAST SURGICAL HISTORY OF 12/2006 TRIGGER FINGER RELEASE RIGHT HAND PECTORALIS MINOR TENDON RELEASE (COMP CODE [id number]) Right RIB RESECTION TOTAL Right SHOULDER ARTHROSCOPY/SURGERY Right 12/13/2018 Dr Hernandez, repair labrum tear SHOULDER SURGERY HX Right 12/13/2017 FAMILY HISTORY Problem Relation Age of Onset Diabetes Maternal Grandfather Cancer Maternal Grandmother Breast Cancer Paternal Grandmother unaware of history, pt.is Colon Cancer Paternal Grandfather Heart Mother Heart Father Breast Cancer Sister 04/2009 pt dx after,nipple discharge ,color change, most recedtly stopped breast feeding, tx plan, started pending pathology Social History Tobacco Use Smoking status: Former Packs/day: 1.00 Years: 10.00 Pack years: 10.00 Types: Cigarettes Quit date: 07/11/2004 Years since quittin.3 Smokeless tobacco: Never Vaping Use Vaping Use: Never used Substance Use Topics Alcohol use: No Comment: rarely Drug use: No OB History T0 L2 SAB2 IAB0 Ectopic0 Multiple1 Live Births0 Comment: twin 02/27/02 , age at first 31, age at menarche 16, lmp June 2009m ,no control at this time,h/o control pills stopped,15 years prior. Current Outpatient Medications Medication Sig pseudoephedrine (SUDAFED) 60 mg tablet Take 60 mg by mouth every 4 hours as needed. traZODone (DESYREL) 100 mg tablet Take 100 mg by mouth at bedtime as needed. For Insomnia venlafaxine ER (EFFEXOR XR) 75 mg 24 hr capsule Take 75 mg by mouth once daily. montelukast (SINGULAIR) 10 mg tablet Take 1 tablet by mouth once daily. albuterol HFA (PROVENTIL HFA, VENTOLIN HFA) 90 mcg/actuation inhaler Inhale 2 Puffs as instructed every 6 hours. ibuprofen (MOTRIN) 600 mg tablet Take 1 tablet by mouth every 6 hours as needed for Pain. Take with food. estradiol (ESTRACE) 0.01 % (0.1 mg/gram) vaginal cream Use 0.5 g vaginally three times a week. No current facility-administered medications for this visit. ALLERGIES Allergen Reactions Hydroquinone Anaphylaxis Codeine GI Upset Humira [Adalimumab] Hives Stelara [Ustekinuma* Shortness of Breath REVIEW OF SYSTEMS Review of Systems Constitutional: Negative for appetite change, fatigue and fever. HENT: Negative for hearing loss, sore throat and trouble swallowing. Eyes: Negative for visual disturbance. Respiratory: Negative for cough, shortness of breath and wheezing. Cardiovascular: Negative for chest pain, palpitations and leg swelling. Gastrointestinal: Negative for abdominal pain, constipation, diarrhea, nausea and vomiting. Endocrine: Negative for cold intolerance and heat intolerance. Genitourinary: Negative for difficulty urinating, frequency and hematuria. Musculoskeletal: Positive for arthralgias and back pain. Negative for joint swelling and neck pain. Skin: Negative for rash. Allergic/Immunologic: Negative for environmental allergies. Neurological: Negative for tremors, syncope, weakness, numbness and headaches. Hematological: Does not bruise/bleed easily. Psychiatric/Behavioral: Negative for dysphoric mood. The patient is not nervous/anxious. PHYSICAL EXAM BP 128/82 Ht 167.6 cm (5' 5.98") Wt 70.3 kg (155 lb) LMP 03/07/2010 BMI 25.03 kg/m Post Void Residual: Done, by ultrasound yielded 0 ml. COLOR UA (POCT) Date Value Ref Range Status 11/19/2022 Yellow Final CLARITY UA (POCT) Date Value Ref Range Status 11/19/2022 Clear Final GLUCOSE UA (POCT) Date Value Ref Range Status 11/19/2022 Negative Negative mg/dL Final BILIRUBIN UA (POCT) Date Value Ref Range Status 11/19/2022 Negative Negative Final KETONE UA (POCT) Date Value Ref Range Status 11/19/2022 Negative Negative mg/dL Final HEMOGLOBIN/BLOOD UA (POCT) Date Value Ref Range Status 11/19/2022 Trace-intact (A) Negative Final PH UA (POCT) Date Value Ref Range Status 11/19/2022 6.0 4.5 - 8.0 Final PROTEIN UA (POCT) Date Value Ref Range Status 11/19/2022 Negative Negative mg/dL Final UROBILINOGEN UA (POCT) Date Value Ref Range Status 11/19/2022 0.2 Normal E.U./dL Final NITRITE UA (POCT) Date Value Ref Range Status 11/19/2022 Negative Negative Final LEUKOCYTES UA (POCT) Date Value Ref Range Status 11/19/2022 Small (A) Negative Final Constitutional: Alert, cooperative, no distress, well nourished. Lungs: Clear to auscultate bilaterally CV: RRR, without murmurs Abdomen: Soft, NT, ND, +BS Back: No CVAT Extremities: No edema or cyanosis Integumentary: No rashes or lesions Genitourinary: Sensation: S1, S2: normal sensation Sacral reflex: +bulbocavernosus Vulva: no lesions Urethra: atrophy Cough Stress test:negative Cervix: absent, no CMT Vagina: normal Skenes and Bartholins glands, atrophy moderate, granulation tissue absent- generalized discomfort on the vaginal wall Uterus: absent Adnexa: no masses palpable and nontender PFM very tight with paroxysmal contraction of the muscles with Valsalva POP-Q Exam Date Leonie Crooks MD:no prolapse Patient shown the results of exam with handheld mirror and discussed. Assessment and Plan: Callie was seen today for uti - re-occurring and dyspareunia. Diagnoses and all orders for this visit: Recurrent UTI we discussed prevention strategies UTI Prevention Drink water Void frequently Avoid carbonated drinks Use vaginal estrogen cream 3 times a week if prescribed Cranberry tablets 36 PAC daily D Mannose- 2 grams per day Consider a bidet Use Probiotic for bowel day - CONSULT TO URO GYNECOLOGY - BLADDER SCAN - estradiol (ESTRACE) 0.01 % (0.1 mg/gram) vaginal cream; Use 0.5 g vaginally three times a week. Dyspareunia, female Likely secondary to atrophic vaginitis and pelvic floor muscle contraction/ vaginismus Start vaginal estrogen Referral to pelvic floor PT - CONSULT TO URO GYNECOLOGY - BLADDER SCAN - CONSULT TO PHYSICAL THERAPY; Future Mixed stress and urge urinary incontinence difficulty emptying bladder- likely secondary to vaginismus referral to pelvic floor PT - CONSULT TO PHYSICAL THERAPY; Future Vaginismus - CONSULT TO PHYSICAL THERAPY; Future - estradiol (ESTRACE) 0.01 % (0.1 mg/gram) vaginal cream; Use 0.5 g vaginally three times a week. Postmenopausal atrophic vaginitis - estradiol (ESTRACE) 0.01 % (0.1 mg/gram) vaginal cream; Use 0.5 g vaginally three times a week. Other orders - UA DIP, URINE (POC) Questions were answered to her satisfaction. 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 Callie Kennedy is a 52 year old female who is new to office that presents for problem visit of pain with intercourse. Pain started around 6 months ago. Reports pain as sharp, stabbing pain on inside of vagina every time she has intercourse. Pain is located on the inside of vagina toward the top. Denies vaginal dryness or irritation. Using lubrication. No bleeding. No itching or buring. Hysterectomy 2009 for stage IV endometriosis. C/O recurrent UTI/bladder infections. OB History T0 L2 SAB2 IAB0 Ectopic0 Multiple1 Live Births0 Comment: twin 02/27/02 , age at first 31, age at menarche 16, lmp June 2009m ,no control at this time,h/o control pills stopped,15 years prior. 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 Had thoracic outlet decompression surgery on the right in 2017 PMH - PAST MEDICAL HISTORY OF right shoulder work injury, resolving with Physical Therapy and pain management Pulmonary embolism (HCC) 06/06/2001 sister has a clotting disorder but patient wasn't tested. This occured when she was on bedrest with twins developed bilateral DVT, then PE. Was on heparin until they were born (delivered at 30 weeks) was on an oral blood thinner for six months and then was taken off Regional enteritis of unspecified site Crohn disease TOS (thoracic outlet syndrome) PAST SURGICAL HISTORY Procedure Laterality Date DELIVERY ONLY 02/27/2002 emergency section for 30wk gest twins EXC CYST/ABERRANT BREAST TISSUE OPEN 1/> LESION 04/25/2009 RIGHT with benign results EXC CYST/ABERRANT BREAST TISSUE OPEN 1/> LESION 04/25/2009 RIGHT with benign results EXCISE LYMPH NODE 04/25/2009 RIGHT with benign results LAPS ABD PRTM&OMENTUM DX W/WO SPEC BR/WA SPX 05/12/2001 Dr. Jasso, Endo, stage 4 LAPS ABD PRTM&OMENTUM DX W/WO SPEC BR/WA SPX 06/19/1999 Dr. Jasso, endometriosis LAPS ABD PRTM&OMENTUM DX W/WO SPEC BR/WA SPX 1997 Dr. Moralez, [place] She found endo (1st dx. of endo) LAPS ABD PRTM&OMENTUM DX W/WO SPEC BR/WA SPX 08/07/2004 Dr. Jasso. Dx. L'scopy, RIGHT ovarian cystectomy, lysis of adhesions, rigid proctoscopy. (for RIGHT ovarian cyst, stage IV endometriosis LAPS ABD PRTM&OMENTUM DX W/WO SPEC BR/WA SPX 05/12/2001 Dr. Hussain Jasso.OPERATION: Diagnostic laparoscopy, resection of bilateral endometriomas, and lysis of adhesions LAPS ABD PRTM&OMENTUM DX W/WO SPEC BR/WA SPX 06/17/1999 Dr. Hussain Jasso. OPERATION: Laparoscopic excision of endometriosis. LAPS ABD PRTM&OMENTUM DX W/WO SPEC BR/WA SPX 06/17/1999 Dr. Payton OPERATION: Excision of rectal endometriosis, mobilization of the rectum and rigid sigmoidoscopy. ORTHOPEDICS SURGERY HX Right 12/13/2018 artoroscopic rt shoulder PAST SURGICAL HISTORY OF age 4 umbillical hernia PAST SURGICAL HISTORY OF breast cysts x3 surgeries PAST SURGICAL HISTORY OF 12/2006 TRIGGER FINGER RELEASE RIGHT HAND PECTORALIS MINOR TENDON RELEASE (COMP CODE [id number]) Right RIB RESECTION TOTAL Right SHOULDER ARTHROSCOPY/SURGERY Right 12/13/2018 Dr Hernandez, repair labrum tear SHOULDER SURGERY HX Right 12/13/2017 FAMILY HISTORY Problem Relation Age of Onset Diabetes Maternal Grandfather Cancer Maternal Grandmother Breast Cancer Paternal Grandmother unaware of history, pt.is Colon Cancer Paternal Grandfather Heart Mother Heart Father Breast Cancer Sister 04/2009 pt dx after,nipple discharge ,color change, most recedtly stopped breast feeding, tx plan, started pending pathology Social History Tobacco Use Smoking status: Former Packs/day: 1.00 Years: 10.00 Pack years: 10.00 Types: Cigarettes Quit date: 07/11/2004 Years since quittin.3 Smokeless tobacco: Never Vaping Use Vaping Use: Never used Substance Use Topics Alcohol use: No Comment: rarely Drug use: No Current Outpatient Medications Medication Sig pseudoephedrine (SUDAFED) 60 mg tablet Take 60 mg by mouth every 4 hours as needed. traZODone (DESYREL) 100 mg tablet Take 100 mg by mouth at bedtime as needed. For Insomnia venlafaxine ER (EFFEXOR XR) 75 mg 24 hr capsule Take 75 mg by mouth once daily. montelukast (SINGULAIR) 10 mg tablet Take 1 tablet by mouth once daily. albuterol HFA (PROVENTIL HFA, VENTOLIN HFA) 90 mcg/actuation inhaler Inhale 2 Puffs as instructed every 6 hours. ibuprofen (MOTRIN) 600 mg tablet Take 1 tablet by mouth every 6 hours as needed for Pain. Take with food. No current facility-administered medications for this visit. Allergies As of Date: 11/19/2022 Allergen Noted Reaction HYDROQUINONE 09/23/2022 Anaphylaxis CODEINE 10/15/2003 GI Upset Fully Assessed 09/24/2022 REVIEW OF SYSTEMS Abdomen: No bloating, early satiety, indigestion, or increased flatulence. No abdominal pain, nausea, vomiting, diarrhea, or constipation. Bladder: Positive for frequency, urgency and stress incontinence. Breast: No breast lumps, nipple d/c, overlying skin changes, redness or skin retraction. Expanded ROS: N/A Allergies and current medication updated:Yes EXAM: BP 128/82 Wt 155 lb (70.3kg) LMP 03/07/2010 GENERAL: pleasant, female in no apparent distress HEENT: Normocephalic and atraumatic NECK: Supple and full range of motion DERMATOLOGY: Normal and without lesions BREAST: deferred CHEST: Normal inspiratory effort ABDOMEN: soft, non-tender, and no masses PELVIC: external genitalia normal, normal Bartholin's glands, urethra, Shongopovi's glands, no vulvar lesions, good vaginal support, cystocele - tenderness with palpation to anterior position of vagina BIMANUAL: uterus surgically absent NEURO: alert and oriented x3,exam grossly non-focal EXTREMITIES: normal ASSESSMENT/PLAN: 1. Dyspareunia, female - ICD9: 625.0, ICD10: N94.10 (primary diagnosis) - CONSULT TO URO GYNECOLOGY 2. Recurrent UTI - ICD9: 599.0, ICD10: N39.0 - CONSULT TO URO GYNECOLOGY 3. Cystocele, midline - ICD9: 618.01, ICD10: N81.11 RTO- as needed or if symptoms worsen Charlette Sanchez APRN.CNM documented in this encounter [facility] 09-20-2022 Note HNO ID: [id number] Author: Ishan Tomlin APRN.CNP Service: ? Author Type: Nurse Practitioner Type: Progress Notes Filed: 09/20/2022 8:46 PM Note Text: HPI: Callie Kennedy is a 52 year old female who presents with GERARD, sinus pain/pressure/drainage, r eye erythema, R ear fullness, sore throat, and productive cough of yellow/green sputum x 8 weeks. She did not seek tx for this d/t lack of insurance. She denies fever, chills, CP, SOB, and tonsillar erythema/exudates. She has tried Singulair, Benadryl, Mucinex, Dayquil/Nyquil all with little relief. 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 Had thoracic outlet decompression surgery on the right in 2017 PMH - PAST MEDICAL HISTORY OF right shoulder work injury, resolving with Physical Therapy and pain management Pulmonary embolism (HCC) 06/06/2001 sister has a clotting disorder but patient wasn't tested. This occured when she was on bedrest with twins developed bilateral DVT, then PE. Was on heparin until they were born (delivered at 30 weeks) was on an oral blood thinner for six months and then was taken off Regional enteritis of unspecified site Crohn disease TOS (thoracic outlet syndrome) ACTIVE PROBLEM LIST Multinodular Goiter Colitis Severe Protein-Calorie Malnutrition (Hcc) Personal History of Nicotine Dependence Irritable Bowel Syndrome Pectoralis Minor Syndrome (Hcc) Pulmonary Embolism (Hcc) Current Outpatient Medications Medication Sig Dispense Refill traZODone (DESYREL) 100 mg tablet Take 100 mg by mouth at bedtime as needed. For Insomnia venlafaxine ER (EFFEXOR XR) 75 mg 24 hr capsule Take 75 mg by mouth once daily. montelukast (SINGULAIR) 10 mg tablet Take 1 tablet by mouth once daily. 90 tablet 3 albuterol HFA (PROVENTIL HFA, VENTOLIN HFA) 90 mcg/actuation inhaler Inhale 2 Puffs as instructed every 6 hours. 1 Inhaler 11 ibuprofen (MOTRIN) 600 mg tablet Take 1 tablet by mouth every 6 hours as needed for Pain. Take with food. 60 tablet 3 amoxicillin-clavulanic acid (AUGMENTIN) 875-125 mg per tablet Take 1 tablet by mouth every 12 hours for 10 days. 20 tablet 0 Bnhmzcndsmhynwr-Rgucajhnh-OA (BROMFED DM) 2-30-10 mg/5 mL syrup Take 10 mL by mouth four times daily as needed for up to 7 days. 473 mL 0 fluticasone (FLONASE ALLERGY RELIEF) 50 mcg/actuation nasal spray Use 1 [place] in each nostril once daily. 9.9 mL 0 balsalazide (COLAZAL) 750 mg capsule Take 3 capsules by mouth three times daily. 270 capsule 1 No current facility-administered medications for this visit. Social History Tobacco Use Smoking status: Former Packs/day: 1.00 Years: 10.00 Pack years: 10.00 Types: Cigarettes Quit date: 07/11/2004 Years since quittin.2 Smokeless tobacco: Never Vaping Use Vaping Use: Never used Substance Use Topics Alcohol use: No Comment: rarely Drug use: No Alcohol Use: No (rarely) Tobacco Use: 1 packs/day, for 10 years. Quit 07/11/2004. Types: Cigarettes FAMILY HISTORY Problem Relation Age of Onset Diabetes Maternal Grandfather Cancer Maternal Grandmother Breast Cancer Paternal Grandmother unaware of history, pt.is Colon Cancer Paternal Grandfather Heart Mother Heart Father Breast Cancer Sister 04/2009 pt dx after,nipple discharge ,color change, most recedtly stopped breast feeding, tx plan, started pending pathology Review of Systems Constitutional: Negative. HENT: Positive for congestion, ear pain, sinus pain and sore throat. Negative for ear discharge, hearing loss, nosebleeds and tinnitus. Eyes: Positive for redness. Respiratory: Positive for cough and sputum production. Negative for hemoptysis, shortness of breath, wheezing and stridor. Cardiovascular: Negative. Gastrointestinal: Negative. Genitourinary: Negative. Musculoskeletal: Negative. Skin: Negative. Neurological: Negative. Endo/Heme/Allergies: Negative. Psychiatric/Behavioral: Negative. All other systems reviewed and are negative. BP 145/77 Pulse 98 Temp 99.1 Resp 16 Wt 154 lb (69.9kg) SpO2 98% LMP 03/07/2010 Physical Exam Vitals and nursing note reviewed. Constitutional: General: She is not in acute distress. Appearance: Normal appearance. She is normal weight. She is ill-appearing. She is not toxic-appearing. HENT: Head: Normocephalic. Right Ear: Tympanic membr (more content not included)... [facility] 06-11-2022 Telephone encounter Note Date/Time patient contacted: June 11, 2022 Has a follow up appointment been made with your primary care provider? (If yes, note date/time of appt. If no, are we able to schedule or get patient in contact with provider) : follow up planned once health insurance reinstated Have your prescriptions been filled?: (If no, why not, contact pharmacist if needed): taking all medication as prescribed Now that you are home, I want to make sure that you understand the most important things about taking care of yourself. I see that you were discharged with a diagnosis of colitis, do you know what symptoms or health problems to watch for or when to call your provider? No further questions Do you have any other questions about your discharge or follow up care instructions?: (if yes, what) : no further questions Are there any caregivers from the hospital that you would like to recognize or compliment? na [facility] 06-11-2022 Miscellaneous Notes Date/Time patient contacted: June 11, 2022 Has a follow up appointment been made with your primary care provider? (If yes, note date/time of appt. If no, are we able to schedule or get patient in contact with provider) : follow up planned once health insurance reinstated Have your prescriptions been filled?: (If no, why not, contact pharmacist if needed): taking all medication as prescribed Now that you are home, I want to make sure that you understand the most important things about taking care of yourself. I see that you were discharged with a diagnosis of colitis, do you know what symptoms or health problems to watch for or when to call your provider? No further questions Do you have any other questions about your discharge or follow up care instructions?: (if yes, what) : no further questions Are there any caregivers from the hospital that you would like to recognize or compliment? na documented in this encounter [facility] 09-05-2021 Instructions Completed [facility] Work Phone: 1(968) 907-314911-16-2021 History of Present illness Narrative* Stephany Ortiz RN - 04/21/2021 6:25 PM EST Patient notified RN that was here. Meds to bed medications and nebulizer given to patient. Patient wheeled out to main lobby. * Stephany Ortiz RN - 04/21/2021 5:55 PM EST Discharge instructions given to patient. RN went over paperwork with patient. Patient has no questions or concerns at this time. , Dede, called per patient's request to let him know he can pick up operator patient. No answer. HIPPA compliant message left. Patient notified of RN unable to reach her via telephone. * Isabel Montano RCP - 04/21/2021 5:51 PM EST [facility] Respiratory Care Department Progress Note SpO2 at rest on RA = 97% HR at rest = 108 SpO2 with ambulation on RA = 93% Peak HR = 125 Distance Walked = >30ft marched in place Qualify for home O2 Y/N = No Patient mobile at home Y/N = Yes * Vince Polanco DTR - 04/21/2021 8:22 AM EST Nutrition rescreen complete. Pt assigned a level one for nutrition care. * Klever Dukes DO - 04/20/2021 10:55 AM EST Images from the original note were not included. Hospitalist Progress Note 04/20/2021 10:55 AM [phone]: Please page me ([phone]) for patient care issues. [phone]: Please page [facility] Hospitalist for any issues. Subjective: Admit Date: 04/19/2021 PCP: MORENO KNOTT Room#: 1616 Pt seen in the room for visit using N95 mask, gown,gloves and face shield. Interval History: Still with cough and sob. Denies chest pain, abdominal pain, nausea, vomiting, diarrhea, constipation, fevers, or chills. ADULT DIET; Regular Patient Vitals for the past 96 hrs (Last 3 readings): Weight 04/19/21 1828 150 lb (68 kg) 24HR INTAKE/OUTPUT: No intake or output data in the 24 hours ending 04/20/21 1055 Past Medical History: Diagnosis Date Asthma Brachial plexus disorders DVT (deep vein thrombosis) in Neck sprain Pulmonary embolism (HCC) 2002 Shoulder sprain Ulcerative (chronic) enterocolitis (HCC) Medications: sodium chloride baclofen 10 mg Oral Daily balsalazide 2,250 mg Oral TID montelukast 10 mg Oral Nightly oxyCODONE-acetaminophen 1 tablet Oral BID topiramate 25 mg Oral BID traZODone 100 mg Oral Nightly venlafaxine 75 mg Oral Daily with breakfast sodium chloride flush 5-40 mL IntraVENous 2 times per day remdesivir IVPB 100 mg IntraVENous Once Followed by [START ON 04/21/2021] remdesivir IVPB 100 mg IntraVENous Q24H enoxaparin 30 mg SubCUTAneous BID LABS: CBC: Recent Labs 04/19/21184004/20/21 0559 WBC 4.5 2.5* RBC 4.56 4.02 HGB 13.9 12.3 HCT 40.3 35.7 MCV 88.4 88.9 RDW 12.1 12.0 PLT 194 182 BMP: Recent Labs 04/19/211840 NA 135 K 3.7 CL 100 CO2 26 BUN 11 CREATININE 0.60 GLUCOSE 99 CALCIUM 8.7 ANIONGAP 10 LIVER PROFILE: Recent Labs 04/19/211840 AST 39 ALT 25 BILITOT 0.4 ALKPHOS 70 LABALBU 4.0 PROT 7.3 PT/INR: No results for input(s): PROTIME, INR in the last 72 hours. CARDIAC ENZYMES: Recent Labs 04/19/211840 TROPONINI <0.012 Procalcitonin: No results found for: PROCAL COVID-19 PCR: No results for input(s): COVID19 in the last 72 hours. Objective: Vitals: BP 114/79 Pulse 77 Temp 99.7 F (37.6 C) (Oral) Resp 22 Ht 5' 6" (1.676 m) Wt 150 lb (68 kg) SpO2 95% BMI 24.21 kg/m Pulse Ox: SpO2 Av.2 % Min: 92 % Max: 97 % Supplemental O2: General appearance: No apparent distress, appears stated age and cooperative with exam HEENT: Normal cephalic, atraumatic without obvious deformity. Pupils equal, round, and reactive to light. Extra ocular muscles intact. Conjunctivae/corneas clear. Neck: Supple, with full range of motion. No jugular venous distention. Trachea midline. No lymphadenopathy. Respiratory: Diminished BS bilaterally Cardiovascular: Regular rate and rhythm with normal S1/S2 without murmurs, rubs or gallops. Abdomen: Soft, non-tender, non-distended with normal bowel sounds. No rebound or guarding. Musculoskeletal: No clubbing, cyanosis or edema bilaterally. Full range of motion without deformity. Skin: Skin color, texture, turgor normal. No rashes or lesions. Neurologic: Neurovascularly intact without any focal sensory/motor deficits. Cranial nerves: II-XIIintact, grossly non-focal. Assessment 1. COVID-19 PNA (unvaccinated) 2. Acute hypoxemic resp failure 3. Asthma 4. Ulcerative colitis 5. Hx of DVT/PE Plan -Remdesevir and Decadron -oxygen/duonebs/incentive spirometry/pulmicort -follow inflammatory markers -home oxygen eval prior to discharge -am labs, replace lytes prn -increase activity -DVT prophylaxis: [x] Lovenox [] Heparin [] SCDs [x] Encourage ambulation [] Already on Anticoagulation Advance Directive: Full Code Discharge planning: TBD Klever Dukes DO Division of Hospitalist Medicine Inpatient Medical Services PAGER: [phone] * Annika Spaulding MD - 04/20/2021 8:38 AM EST Images from the original note were not included. [facility] - Infectious Diseases Attending COVID-19 Therapeutic Progress Note Subjective: Consult/Treatment requested on this patient with testing consistent with CoV2 infection. Patient isdocumented to have hypoxia with SpO2 <=94% on room air or increase in baseline oxygen requirement during this visit. Objective: Vitals: Patient Vitals for the past 24 hrs: BP Temp Temp src Pulse Resp SpO2 Height Weight 04/20/21 0822 114/79 77 04/20/21 0643 113/77 74 95 % 04/20/21 0605 78 94 % 04/20/21 0530 75 95 % 04/20/21 0032 (!) 142/79 91 95 % 04/19/21 2332 127/86 92 92 % 04/19/21 2302 121/72 94 94 % 04/19/21 2132 (!) 119/90 109 93 % 04/19/212015 99.7 F (37.6 C) Oral 04/19/21 1941 128/84 104 97 % 04/19/21 1938 105 04/19/21 1828 123/85 99 F (37.2 C) Oral 115 22 93 % 5' 6" (1.676 m) 150 lb (68 kg) Physical Exam Due to the current efforts to prevent transmission of COVID-19 and also the need to preserve PPE for other caregivers, a bgaz-qn-hgoo encounter with the patient was not performed. That being said, all relevant records and diagnostic tests were reviewed, including laboratory results and imaging. Please reference any relevant documentation elsewhere. Care will be coordinated with the primary service. Labs: Recent Labs 04/19/211840 NA 135 K 3.7 CL 100 CO2 26 BUN 11 CREATININE 0.60 GLUCOSE 99 CALCIUM 8.7 PROT 7.3 LABALBU 4.0 BILITOT 0.4 ALKPHOS 70 AST 39 ALT 25 Recent Labs 04/19/21 1841 04/20/21 0559 WBC 4.5 2.5* HGB 13.9 12.3 HCT 40.3 35.7 PLT 194 182 GRANULOCYTES 46.6 57.7 LYMPHOPCT 43.9* 34.3 MONOPCT 8.5 7.0 LABEOS 0.1* 0.1* BASOPCT 0.9 0.9 NEUTROABS 2.1 1.4* Recent Labs 04/20/21 0559 CRP 11.7* Recent Labs 04/20/21 0559 DDIMER 0.52* No results for input(s): FERRITIN in the last 72 hours. No results for input(s): LDH in the last 72 hours. Micro: No results for input(s): COVID19 in the last 72 hours. Other CoV2 testin04/10/21 [place] Other pertinent findings: Humira. Unvaccinated Estimated date of symptom onset: 04/08/21 Impression: COVID19 pneumonia with hypoxia Plan: Treatment with remdesivir 200mg IV once followed by 100mg IV daily for additional four days is appropriate. Would also recommend 10 days of dexamethasone or equivalent steroid while in hospital, and may be discontinued at discharge unless needed for other treatment. Will sign off and continue to follow through COVID stewardship. Please call if needed. More that 51% total time 15 Minutes counseling (or coordinating care) and providing discussion regarding plan of care, expectations, medication plan. Annika Spaulding MD, FACP, FIDSA * Kandice Haro RN - 04/20/2021 6:33 AM EST Images from the original note were not included. documented in this [facility] Work Phone: 1(823) 998-853011-16-2021 NoteHospitalist Discharge Summary Callie Kennedy : 1970 Admit date: 04/19/2021 Discharge date: 04/21/2021 Admitting Physician: Tamar Watson MD Primary Care Physician: MORENO KNOTT Visit Status: Admission Code Status: Full Code Discharge Diagnoses: 1. COVID-19 PNA (unvaccinated) s/p Remdesevir and Decadron 2. Acute hypoxemic resp failure(clinical judgement) 3. Asthma 4. Ulcerative colitis 5. Hx of DVT/PE Diagnosis Date ? Asthma ? Brachial plexus disorders ? DVT (deep vein thrombosis) in ? Neck sprain ? Pulmonary embolism (HCC) 2001 ? Shoulder sprain ? Ulcerative (chronic) enterocolitis (HCC) Procedures: CTA(chest), CT(abd,pelvis) Hospital Course: See discharge diagnoses list above and medication adjustments below in med rec.The patient is discharged in improved and stable condition. Consults: None Discharge Instructions: Diet: ADULT DIET; Regular Activity: as tolerated Recommended Outpatient Tests: Disposition: Patient discharged in stable condition to Home. Greater than 30 minutes spent discharging the patient and coming up with patient discharge plan. Vitals: BP 108/74 Pulse 94 Temp 97.5 ?F (36.4 ?C) (Temporal) Resp 16 Ht 5' 6" (1.676 m) Wt 150 lb (68 kg) SpO2 97% BMI 24.21 kg/m? Pulse Ox: SpO2 Av.9 % Min: 92 % Max: 97 % Supplemental O2: General appearance: No apparent distress, appears stated age and cooperative with exam HEENT: Normal cephalic, atraumatic without obvious deformity. Pupils equal, round, and reactive to light. Extra ocular muscles intact. Conjunctivae/corneas clear. Neck: Supple, with full range of motion. No jugular venous distention. Trachea midline. No lymphadenopathy. Respiratory: Normal respiratory effort. Clear to auscultation, bilaterally without Rales/Wheezes/Rhonchi. Cardiovascular: Regular rate and rhythm with normal S1/S2 without murmurs, rubs or gallops. Abdomen: Soft, non-tender, non-distended with normal bowel sounds. No rebound or guarding. Musculoskeletal: No clubbing, cyanosis or edema bilaterally. Full range of motion without deformity. Skin: Skin color, texture, turgor normal. No rashes or lesions. Neurologic: Neurovascularly intact without any focal sensory/motor deficits. Cranial nerves: II-XII intact, grossly non-focal. Discharge Medications: Medication List START taking these medications benzonatate 100 MG capsule Commonly known as: TESSALON Take 1 capsule by mouth 3 times daily as needed for Cough ipratropium-albuterol 0.5-2.5 (3) MG/3ML Soln nebulizer solution Commonly known as: DUONEB Inhale 3 mLs into the lungs every 4 hours as needed for Shortness of Breath CONTINUE taking these medications Humira 40 MG/0.8ML injection Generic drug: adalimumab ondansetron 4 MG tablet Commonly known as: ZOFRAN Take 1 tablet by mouth 3 times daily as needed for Nausea or Vomiting oxyCODONE-acetaminophen 5-325 MG per tablet Commonly known as: PERCOCET Singulair 10 MG tablet Generic drug: montelukast Skelaxin 800 MG tablet Generic drug: metaxalone traZODone 100 MG tablet Commonly known as: DESYREL venlafaxine 75 MG extended release capsule Commonly known as: EFFEXOR XR Where to Get Your Medications These medications were sent to [address] - P [phone] - F [phone] [place] [id number] ? benzonatate 100 MG capsule ? ipratropium-albuterol 0.5-2.5 (3) MG/3ML Soln nebulizer solution ? ondansetron 4 MG tablet Recommended Follow-up: Moreno Knott [address] [place] [address] In 1 week post hospital fu appt Readmission Risk Risk of Unplanned Readmission: 9 Complexity of Follow up: [] Moderate Complexity: follow up within 7-14 calendar days (59256) [x] Severe Complexity: follow up within 7 calendar days (93297) Follow up Testing, Pending results or Referrals at Transitional Care Visit: [x] yes [] no Instructions to MA: Please call patient on day after discharge (must document patient contacted within 2 business days of discharge). Follow up questions for MA: 1. Did you get medications filled and taking them as instructed from discharge? 2. Are you following your discharge instructions from your hospital stay? 3. Please confirm patient is scheduled for a follow up appointment within the above time frame. Signed: Klever Dukes DO Division of Hospitalist Medicine Inpatient Medical Services 04/21/2021, 2:55 [facility]11-16-2021 Hospital course Narrative* Klever Dukes DO - 04/21/2021 2:55 PM EST Images from the original note were not included. Hospitalist Discharge Summary Callie Kennedy : 1970 Admit date: 04/19/2021 Discharge date: 04/21/2021 Admitting Physician: Tamar Watson MD Primary Care Physician: MORENO KNOTT Visit Status: Admission Code Status: Full Code Discharge Diagnoses: 1. COVID-19 PNA (unvaccinated) s/p Remdesevir and Decadron 2. Acute hypoxemic resp failure 3. Asthma 4. Ulcerative colitis 5. Hx of DVT/PE Diagnosis Date Asthma Brachial plexus disorders DVT (deep vein thrombosis) in Neck sprain Pulmonary embolism (HCC) 2001 Shoulder sprain Ulcerative (chronic) enterocolitis (HCC) Procedures: CTA(chest), CT(abd,pelvis) Hospital Course: See discharge diagnoses list above and medication adjustments below in med rec.Thepatient is discharged in improved and stable condition. Consults: None Discharge Instructions: Diet: ADULT DIET; Regular Activity: as tolerated Recommended Outpatient Tests: Disposition: Patient discharged in stable condition to Home. Greater than 30 minutes spent discharging the patient and coming up with patient discharge plan. Vitals: BP 108/74 Pulse 94 Temp 97.5 F (36.4 C) (Temporal) Resp 16 Ht 5' 6" (1.676 m) Wt 150 lb (68 kg) SpO2 97% BMI 24.21 kg/m Pulse Ox: SpO2 Av.9 % Min: 92 % Max: 97 % Supplemental O2: General appearance: No apparent distress, appears stated age and cooperative with exam HEENT: Normal cephalic, atraumatic without obvious deformity. Pupils equal, round, and reactive to light. Extra ocular muscles intact. Conjunctivae/corneas clear. Neck: Supple, with full range of motion. No jugular venous distention. Trachea midline. No lymphadenopathy. Respiratory: Normal respiratory effort. Clear to auscultation, bilaterally without Rales/Wheezes/Rhonchi. Cardiovascular: Regular rate and rhythm with normal S1/S2 without murmurs, rubs or gallops. Abdomen: Soft, non-tender, non-distended with normal bowel sounds. No rebound or guarding. Musculoskeletal: No clubbing, cyanosis or edema bilaterally. Full range of motion without deformity. Skin: Skin color, texture, turgor normal. No rashes or lesions. Neurologic: Neurovascularly intact without any focal sensory/motor deficits. Cranial nerves: II-XIIintact, grossly non-focal. Discharge Medications: Medication List START taking these medications benzonatate 100 MG capsule Commonly known as: TESSALON Take 1 capsule by mouth 3 times daily as needed for Cough ipratropium-albuterol 0.5-2.5 (3) MG/3ML Soln nebulizer solution Commonly known as: DUONEB Inhale 3 mLs into the lungs every 4 hours as needed for Shortness of Breath CONTINUE taking these medications Humira 40 MG/0.8ML injection Generic drug: adalimumab ondansetron 4 MG tablet Commonly known as: ZOFRAN Take 1 tablet by mouth 3 times daily as needed for Nausea or Vomiting oxyCODONE-acetaminophen 5-325 MG per tablet Commonly known as: PERCOCET Singulair 10 MG tablet Generic drug: montelukast Skelaxin 800 MG tablet Generic drug: metaxalone traZODone 100 MG tablet Commonly known as: DESYREL venlafaxine 75 MG extended release capsule Commonly known as: EFFEXOR XR Where to Get Your Medications These medications were sent to [facility] [address] - P [phone] - F [phone] [place] [id number] benzonatate 100 MG capsule ipratropium-albuterol 0.5-2.5 (3) MG/3ML Soln nebulizer solution ondansetron 4 MG tablet Recommended Follow-up: [facility] [address] [place] [address] In 1 week post hospital fu appt Readmission Risk Risk of Unplanned Readmission: 9 Complexity of Follow up: [] Moderate Complexity: follow up within 7-14 calendar days (41025) [x] Severe Complexity: follow up within 7 calendar days (49630) Follow up Testing, Pending results or Referrals at Transitional Care Visit: [x] yes [] no Instructions to MA: Please call patient on day after discharge (must document patient contacted within 2 business days of discharge). Follow up questions for MA: 1. Did you get medications filled and taking them as instructed from discharge? 2. Are you following your discharge instructions from your hospital stay? 3. Please confirm patient is scheduled for a follow up appointment within the above time frame. Signed: Klever Dukes DO Division of Hospitalist Medicine Inpatient Medical Services 04/21/2021, 2:55 PM [facility] Work Phone: 1(889) 884-612211-16-2021 Hospital Discharge instructions* Discharge Instr - Activity* Klever Dukes DO - 04/21/2021 2:55 PM EST As tolerated * Discharge Instr - Diet* Klever Dukes DO - 04/21/2021 2:55 PM EST Good nutrition is important when healing from an illness, injury, or surgery. Follow any nutrition recommendations given to you during your hospital stay. If you were given an oral nutrition supplement while in the hospital, continue to take this supplement at home. You can take it with meals, in-between meals, and/or before bedtime. These supplements can be purchased at most local grocery stores, pharmacies, and chain super-stores. If you have any questions about your diet or nutrition, call the hospital and ask for the dietitian. documented in this [facility] Work Phone: 1(869) 408-392309-09-2016 History of Past illness Narrative* Problem Noted Date Resolved Date Endometriosis 02/13/2016 02/07/2018 Pelvic adhesions 02/13/2016 02/07/2018 Right lower quadrant abdominal pain 01/31/2016 02/07/2018 Lump or mass in breast 02/20/2007 8 documented as of this encounter (statuses as of 11/19/2022) [facility] History of Past illness Narrative* Problem Noted Date Resolved Date Endometriosis 02/13/2016 02/07/2018 Pelvic adhesions 02/13/2016 02/07/2018 Right lower quadrant abdominal pain 01/31/2016 02/07/2018 Lump or mass in breast 02/20/2007 8 documented as of this encounter (statuses as of 11/19/2022) [facility] History of Past illness Narrative* Problem Noted Date Diagnosed Date Resolved Date Endometriosis 02/13/2016 02/07/2018 Pelvic adhesions 02/13/2016 02/07/2018 Right lower quadrant abdominal pain 01/31/2016 02/07/2018 Lump or mass in breast 02/20/200702/07 documented as of this encounter (statuses as of 02/02/2023) [facility] History of Past illness Narrative* Problem Noted Date Diagnosed Date Resolved Date Endometriosis 02/13/2016 02/07/2018 Pelvic adhesions 02/13/2016 02/07/2018 Right lower quadrant abdominal pain 01/31/2016 02/07/2018 Lump or mass in breast 02/20/200702/07 documented as of this encounter (statuses as of 07/19/2023) [facility] History of Past illness Narrative* Problem Noted Date Diagnosed Date Resolved Date Endometriosis 02/13/2016 02/07/2018 Pelvic adhesions 02/13/2016 02/07/2018 Right lower quadrant abdominal pain 01/31/2016 02/07/2018 Lump or mass in breast 02/20/200702/07 documented as of this encounter (statuses as of 08/25/2023) [facility] note* Diagnosis Hematochezia- Primary Blood in stool Generalized weakness Other malaise and fatigue COVID-19 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: Evaluation note* Diagnosis Onset Date Resolution Status Asthma chronic Bilateral hip pain chronic Ulcerative colitis chronic Bilateral hip pain chronic Ulcerative colitis chronic Inguinal pain of both sides acute [facility] Work Phone: Evaluation noteThere may be information available, but it has not been provided by the sender.[facility] Work Phone: Evaluation noteNo assessment information available [facility] Work Phone: Evaluation note* Diagnosis Onset Date Resolution Status Dyspareunia in female acute Tachycardia acute Anxiety and depression chron ic Ulcerative colitis chronic [facility] Work Phone: Evaluation note* Diagnosis Dyspareunia, female- Primary Dyspareunia Recurrent UTI Urinary tract infection, site not specified Cystocele, midline documented in this encounter [facility] note* Diagnosis Recurrent UTI- Primary Urinary tract infection, site not specified Dyspareunia, female Dyspareunia Mixed stress and urge urinary incontinence Mixed incontinence urge and stress (male)(female) Vaginismus Postmenopausal atrophic vaginitis documented in this encounter [facility] note* Diagnosis Low back pain, unspecified Cervicalgia [facility] Diagnosis Nontoxic single thyroid nodule Nontoxic uninodular goiter [facility] Diagnosis Nontoxic single thyroid nodule- Primary Nontoxic uninodular goiter [facility]* Diagnosis Nontoxic single thyroid nodule- Primary Nontoxic uninodular goiter Nontoxic single thyroid nodule Nontoxic uninodular goiter [facility]* Diagnosis Cervicalgia- Primary Low back pain, unspecified Low back pain, unspecified Cervicalgia documented in this encounter [facility] note* Diagnosis Urinary tract infection in female- Primary documented in this encounter [facility] note* Diagnosis Foot pain, left- Primary Pain in soft tissues of limb documented in this encounter [facility] note* Diagnosis Upper respiratory tract infection, unspecified type- Primary documented in this encounter [facility] note* Diagnosis Recurrent UTI Urinary tract infection, site not specified Vaginismus Postmenopausal atrophic vaginitis documented in this encounter [facility] note* Diagnosis Constipation, unspecified constipation type- Primary Right lower quadrant abdominal pain History of ulcerative colitis documented in this encounter [facility] note* Diagnosis Ulcerative colitis without complications, unspecified location (HCC)- Primary Skin rash Rash and other nonspecific skin eruption Nausea and vomiting, unspecified vomiting type Vitamin D deficiency Unspecified vitamin D deficiency Right lower quadrant abdominal pain Abdominal pain, right lower quadrant documented in this encounter [facility] note* Diagnosis Right lower quadrant abdominal pain Abdominal pain, right lower quadrant documented in this encounter [facility] note* Diagnosis Crohn's disease of large intestine without complication (HCC)- Primary Regional enteritis of large intestine documented in this encounter [facility] note* Diagnosis Ulcerative colitis without complications, unspecified location (HCC) Skin rash Rash and other nonspecific skin eruption Nausea and vomiting, unspecified vomiting type documented in this encounter [facility] note* Diagnosis Crohn's disease of colon without complication (HCC)- Primary History of pulmonary embolus during Personal history of venous thrombosis and embolism Family history of hypercoagulable state documented in this encounter [facility] note* Diagnosis Crohn's disease of large intestine without complication (HCC)- Primary Regional enteritis of large intestine Crohn's disease of colon without complication (HCC) History of pulmonary embolus during Personal history of venous thrombosis and embolism Family history of hypercoagulable state documented in this encounter [facility] note* Diagnosis Viral pharyngitis- Primary Acute pharyngitis Sore throat Acute pharyngitis documented in this encounter [facility] note* Diagnosis Crohn's disease of large intestine without complication (HCC)- Primary Regional enteritis of large intestine documented in this encounter [facility] note* Diagnosis Crohn's disease of large intestine without complication (HCC)- Primary Regional enteritis of large intestine [facility] Diagnosis Crohn's disease of large intestine without complication (HCC)- Primary Regional enteritis of large intestine documented in this encounter [facility] note* Diagnosis Crohn's disease of large intestine without complication (HCC)- Primary Regional enteritis of large intestine documented in this encounter [facility] note* Diagnosis Encounter for antibody response examination- Primary documented in this encounter [facility] note* Diagnosis Crohn's disease of large intestine without complication (HCC)- Primary Regional enteritis of large intestine documented in this encounter [facility] note* Diagnosis History of pulmonary embolus during Personal history of venous thrombosis and embolism Family history of hypercoagulable state documented in this encounter [facility] note* Diagnosis Hematoma and contusion- Primary documented in this encounter [facility] note* Diagnosis Crohn's disease of large intestine without complication (HCC)- Primary Regional enteritis of large intestine Numbness Disturbance of skin sensation documented in this encounter [facility] note* Diagnosis Crohn's disease of large intestine without complication (HCC) Regional enteritis of large intestine documented in this encounter [facility] note* Diagnosis Crohn's disease of large intestine without complication (HCC)- Primary Regional enteritis of large intestine documented in this encounter [facility] note* Diagnosis Crohn's disease of large intestine without complication (HCC)- Primary Regional enteritis of large intestine Family history of hypercoagulable state History of pulmonary embolus during Personal history of venous thrombosis and embolism Liver hemangioma Hemangioma of intra-abdominal structures History of deep vein thrombosis Personal history of venous thrombosis and embolism Dilation of pancreatic duct (HCC) Other specified disease of pancreas documented in this encounter [facility] note* Diagnosis Non-recurrent acute suppurative otitis media of both ears without spontaneous rupture of tympanic membranes- Primary Eustachian tube dysfunction, bilateral PND (post-nasal drip) Postnasal drip Acute cough Nasal sinus congestion Other diseases of nasal cavity and sinuses Viral sore throat Acute pharyngitis documented in this encounter [facility] Work Phone: Hospital Discharge instructions* Attachments The following attachments cannot be sent through Care Everywhere. * Contusion Discharge Instructions (Nigerian) [facility] Attachments The following attachments cannot be sent through Care Everywhere. * Viral Pharyngitis Discharge Instructions (Nigerian) [facility] Instruction Text No instruction information i s available. [facility] Reason for referral (narrative)* - Pending Review Specialty Diagnoses / Procedures Referred By Queta t Referred To Contact Physical Therapy Diagnoses Dyspareunia, female Mixed stress and urge urinary incontinence Vaginismus Procedures CONSULT TO PHYSICAL THERAPY Leonie Crooks MD [address] [id number] Referral ID Status Reason Start Date Expiration Date V isits Requested Visits Authorized [id number] Pending Review 11/19/2022 02/17/2023 1 1 [facility] for referral (narrative)* Consultation (Routine) - Pending Review Specialty Diagnoses / Procedures Referred By Contfransisco t Referred To Contact Urology Diagnoses Urinary tract infection in female Procedures AR OFFICE/OUTPATIENT NEW HIGH MDM 60-74 MINUTES Chyna Santos PA-C [address] [place] [address] [facility] [address] [place] [address] Referral ID Status Reason Start Date Expiration Date Visits Requested Visits Authorized [id number] Pending Review Specialty Services Required 3 05/29/2024 1 1 [facility] for referral (narrative)* Outpatient Procedure (Routine) - Closed Specialty Diagnoses / Procedures Referred By Contac t Referred To Contact [facility] Diagnoses Ulcerative colitis without complications, unspecified location (HCC) Skin rash Nausea and vomiting, unspecified vomiting type Procedures EGD DIAGNOSTIC ESOPHAGOGASTRODUODENOSC OPY TRANSORAL DIAGNOSTIC Alia Parmar MD [address] [place] [address] [address] Referral ID Status Reason Start Date Expiration Date V isits Requested Visits Authorized [id number] Closed Auto-Generate d Referral 12/20/2023 12/19/2024 1 1 * Outpatient Procedure (Routine) - Closed Specialty Diagnoses / Procedures Referred By Queta t Referred To Contact [facility] Diagnoses Ulcerative colitis without complications, unspecified location (HCC) Skin rash Procedures COLONOSCOPY DIAGNOSTIC COLONOSCOPY FLX DX W/COLLJ SPEC WHEN PFRMD Alia Parmar MD [address] [place] [address] [address] Referral ID Status Reason Start Date Expiration Date V isits Requested Visits Authorized [id number] Closed Auto-Generate d Referral 12/20/2023 12/19/2024 1 1 [facility] Outpatient Procedure (Routine) - Closed Specialty Diagnoses / Procedures Referred By Queta epstein Referred To Contact [facility] Diagnoses Ulcerative colitis without complications, unspecified location (HCC) Skin rash Nausea and vomiting, unspecified vomiting type Procedures EGD DIAGNOSTIC ESOPHAGOGASTRODUODENOSC OPY TRANSORAL DIAGNOSTIC Alia Parmar MD [address] [address] [address] Referral ID Status Reason Start Date Expiration Date V isits Requested Visits Authorized [id number] Closed Auto-Generate d Referral 12/20/2023 12/19/2024 1 1 [facility] Summary Purpose Family History No Family History Records Found Relationship Condition Age at Onset Recorded Date/T kathy sister Malignant neoplasm of breast Unknown grandfather Malignant neoplasm of colon Unknown grandmother Malignant neoplasm of breast Unknown father Cardiac disease Unknown Hypertension Unknown mother Cardiac disease Unknown Advance Directives No Advanced Directives Records FoundDocuments on File Type Date Recorded Patient River [employer] Expl anation ACP-Advance Directive ACP-Power of Senior Account Executive Documents on File Type Date Recorded Patient River [employer] Expl anation ACP-Advance Directive ACP-Power of Senior Account Executive Latest Code Status on File Code Status Date Activated Date Inactivated Comments Full Code 04/20/2021 1:10 AM Advance Directive Response Recorded Date/ Time Living Will No November 16, 2019 9:11am Power of Senior Account Executive No November 15 9:11am Advance Directive Response Recorded Date/ Time Living Will No April 21, 022 12:17pm Power of Senior Account Executive No April 21, 2022 12:17pm Advance Directive Response Recorded Date/ Time Living Will No April 21 1:17pm Power of Senior Account Executive No April 21, 2022 1:17pm Latest Code Status on File Code Status Date Activated Date Inactivated Comments Full Code 05/30/2022 11:39 PM 06/03/2022 4:41 PM Latest Code Status on File Code Status Date Activated Date Inactivated Comments Full Code 05/30/2022 11:39 PM 06/03/2022 4:41 PM Date Activated Date Inactivated Comments 05/30/2022 11:39 PM 06/03/2022 4:41 PM Reason for Referral Status Reason Specialty Diagnoses / Procedures Referred By Contact Referred To Contact Pending Review Radiology Diagnoses Abdominal distention Procedures US DUP ABD PEL RETRO SCROT LIMITED Valentine Montoya MD [address] [place] [id number] Status Reason Specialty Diagnoses / Procedures Referred By Contact Referred To Contact Pending Review Radiology Diagnoses Abdominal distention Procedures US ABDOMEN LIMITED Valentine Montoya MD [address] [place] [phone] Specialty Diagnoses / Procedures Referred By Contac t Referred To Contact Diagnoses Recurrent UTI Dyspareunia, female Procedures CONSULT TO URO GYNECOLOGY OFFICE/OUTPATIENT [facility] 60-74 MINUTES Charlette Sanchez APRN.[facility] [address] [place] [address] Referral ID Status Reason Start Date Expiration Date Visits Requested Visits Authorized [id number] Pending Review PCP Requested Referral Auto-Generate d Referral 11/19/2022 11/19/2023 1 1 Specialty Diagnoses / Procedures Referred By Contac t Referred To Contact CT IMAGING Diagnoses Right lower quadrant abdominal pain Procedures CT ENTEROGRAPHY W IVCON CT ABD & PELVIS W/CONTRAST Alia Parmar MD [address] [place] [address] [id number] Referral ID Status Reason Start Date Expiration Date Visits Requested Visits Authorized [id number] Authorized Auto-Generat ed Referral 12/20/2023 01/18/2024 1 1 Specialty Diagnoses / Procedures Referred By Contac t Referred To Contact Dermatology Diagnoses Skin rash Procedures CONSULT TO DERMATOLOGY OFFICE/OUTPATIENT NEW HIGH [facility] 60 MINUTES Alia Parmar MD [facility] [place] [address] Referral ID Status Reason Start Date Expiration Date Visits Requested Visits Authorized [id number] Authorized PCP Requested Referral 12/20/2023 12/19/2024 1 1 Specialty Diagnoses / Procedures Referred By Contac t Referred To Contact [facility] Diagnoses Ulcerative colitis without complications, unspecified location (HCC) Skin rash Nausea and vomiting, unspecified vomiting type Procedures EGD DIAGNOSTIC ESOPHAGOGASTRODUODENOSC OPY TRANSORAL DIAGNOSTIC Alia Parmar MD [address] [place] [address] [facility] [place] [address] [place] [address] Referral ID Status Reason Start Date Expiration Date Visits Requested Visits Authorized [id number] New Request Auto-Generat ed Referral 12/20/2023 12/19/2024 1 1 Specialty Diagnoses / Procedures Referred By Contac t Referred To Contact [facility] Diagnoses Ulcerative colitis without complications, unspecified location (HCC) Skin rash Procedures COLONOSCOPY DIAGNOSTIC COLONOSCOPY FLX DX W/COLLJ SPEC WHEN PFRMD Alia Parmra MD [facility] [place] [address] [facility] [place] [address] [place] [address] Referral ID Status Reason Start Date Expiration Date Visits Requested Visits Authorized [id number] New Request Auto-Generat ed Referral 12/20/2023 12/19/2024 1 1 Specialty Diagnoses / Procedures Referred By Queta epstein Referred To Contact Diagnoses History of pulmonary embolus during Family history of hypercoagulable state Procedures CONSULT TO HEMATOLOGY/ONCOLOGY OFFICE/OUTPATIENT NEW HIGH MDM 60 MINUTES Alia Parmar MD [address] [place] [address] Referral ID Status Reason Start Date Expiration Date Visits Requested Visits Authorized [id number] Authorized PCP Requested Referral 4 03/16/2025 1 1 Assessments Diagnosis Abdominal distention Flatulence, eructation, and gas pain Chief Complaint and Reason for Visit Chief Complaint R/S F/U EORDER- BOTH HIPS- PAIN Bilat hip pain PELVIC PAIN/CC RESULTS TO F. NAFFAH abd Reason for Visit Asthma Bilateral hip pain Ulcerative colitis Bilateral hip pain Ulcerative colitis Inguinal pain of both sides Chief Complaint R/S F/U EORDER- BOTH HIPS- PAIN Bilat hip pain PELVIC PAIN/CC RESULTS TO F. 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 DATE CREATED AUTHOR AUTHOR'S ORGANIZ ATION 03/07/2020 [facility] DATE CREATED AUTHOR AUTHOR'S ORGANIZ ATION 05/09/2021 [facility] DATE CREATED AUTHOR AUTHOR'S ORGANIZ ATION 11/14/2021 [facility] DATE CREATED AUTHOR AUTHOR'S ORGANIZ ATION 09/21/2022 [facility] DATE CREATED AUTHOR AUTHOR'S ORGANIZ ATION 10/08/2024 [facility] DATE CREATED AUTHOR AUTHOR'S ORGANIZ ATION 12/14/2024 [facility] DATE CREATED AUTHOR AUTHOR'S ORGANIZ ATION 03/09/2025 [facility] DATE CREATED AUTHOR AUTHOR'S ORGANIZ ATION 03/24/2025 [facility] DATE CREATED AUTHOR AUTHOR'S ORGANIZ ATION 03/25/2025 [facility] Reason for Visit (unrecogniz ed section and content) Status Reason Specialty Diagnoses / Procedures Referre d By Contact Referred To Contact [facility] Diagnoses Abdominal distension (gaseous) Procedures US ABDOMEN COMPLETE Valentine Montoya MD [address] [place] [address] [facility] Ultrasound [address] [place] [address] Reason Comments Positive For Covid-19 tested positive 10 days ago at doctors, increased symptoms Fatigue Reason For Visit Description Start Date Workers Comp - Consult Preliminary reason f or visit data, not yet signed by the author as of right shoulder pain Reason Comments Pelvic Pain Specialty Diagnoses / Procedures Referred By Queta epstein Referred To Contact [employer] Diagnoses pain during intercouse Procedures NEW I PATIENT Self Charlette Sanchez APRN.CNM [address] [place] [address] Referral ID Status Reason Start Date Expiration Date V isits Requested Visits Authorized [id number] Closed Patient Cleared - Qualified 100% FAS 11/17/2022 11/18/2022 99 99 Reason Comments Uti - Re-occurring Dyspareunia Specialty Diagnoses / Procedures Referred By Contac t Referred To Contact Diagnoses Recurrent UTI Dyspareunia, female Procedures CONSULT TO URO GYNECOLOGY OFFICE/OUTPATIENT NEW HIGH MDM 60-74 MINUTES Charlette Sanchez APRN.CNM [address] [place] [address] Referral ID Status Reason Start Date Expiration Date Visits Requested Visits Authorized [id number] Pending Review PCP Requested Referral Auto-Generate d Referral 11/19/2022 11/19/2023 1 1 Reason Comments Polysomnogram Reason Comments UTI Reason Comments Foot Pain Reason Comments Nasal Congestion Reason Comments Refill Request Reason Comments Abdominal Pain Nausea/ Vomiting x 2 days hx ulcerative colitis Reason Comments Hospital F/U Hx UC Specialty Diagnoses / Procedures Referred By Contac t Referred To Contact CT IMAGING Diagnoses Right lower quadrant abdominal pain Procedures CT ENTEROGRAPHY W IVCON CT ABD & PELVIS W/CONTRAST Alia Parmar MD [address] [address] [place] [address] Referral ID Status Reason Start Date Expiration Date V isits Requested Visits Authorized [id number] Closed Auto-Generate d Referral 12/20/2023 01/18/2024 1 1 Reason Comments Medication Authorization Reason Comments Crohns Reason Comments Infusion Specialty Diagnoses / Procedures Referred By Contac t Referred To Contact [facility]ON INFUSION Diagnoses Crohn's disease of large intestine without complication (HCC) Procedures INJECTION, RISANKIZUMAB-RZAA, INTRAVENOUS, 1 MG Alia Parmar MD [address] [facility] [place] [address] [facility] [address] [place] [address] Referral ID Status Reason Start Date Expiration Date V isits Requested Visits Authorized [id number] Authorized 02/15/2024 02/13/2025 8 8 Reason Comments Sore Throat Hurts to swollen,Cou gh, Headache, x 3 days. Pt state she would like to have Strep test done today. Reason Comments Patient Update Reason Onset Date Comments Hospital Follow-up 06/11/2022 Reason Onset Date Comments SPP Inflammatory Conditions - Treatment Referral 05/21/2024 [employer] Insurance Authorization 05/21/2024 PA Submi ssion Pending Reason Onset Date Comments Refill Request 05/29/2024 Reason Comments Consult Specialty Diagnoses / Procedures Referred By Contac t Referred To Contact Diagnoses History of pulmonary embolus during Family history of hypercoagulable state Procedures CONSULT TO HEMATOLOGY/ONCOLOGY OFFICE/OUTPATIENT [facility] 60 MINUTES Alia Parmar MD [address] [place] [address] Referral ID Status Reason Start Date Expiration Date V isits Requested Visits Authorized [id number] Closed PCP Requested Referral 03/16/2024 03/16/2025 1 1 Reason Comments Results Reason Comments Fall Pt c/o fall on y. C/o right hip pain. States that there is bruising. States that pain is radiating down her leg and up her back. Pt ambulatory in triage. Reason Comments ER F/U Crohns Reason Comments Crohns Reason Comments Sore Throat Sinusitis Cough Ordered Prescriptions (unrec ognized section and content) Prescription Sig Dispensed Refills Start Date End Da te ondansetron (ZOFRAN) 4 MG tablet Take 1 tablet by mouth 3 times daily as needed for Nausea or Vomiting 15 tablet 0 04/21/2021 benzonatate (TESSALON) 100 MG capsule Take 1 capsule by mouth 3 times daily as needed for Cough 14 capsule 0 04/21/2021 ipratropium-albuterol (DUONEB) 0.5-2.5 (3) MG/3ML SOLN nebulizer solution Inhale 3 mLs into the lungs every 4 hours as needed for Shortness of Breath 360 mL 0 04/21/2021 Scheduled Active and Recently Administ ered Medications (unrecognized section and content) Medication Order 04/19/2021 04/20/2021 04/21/2021 0.9 % sodium chloride bolus (COMPLETED) 1,000 mL (14.7 mL/kg), IntraVENous, at 1,000 mL/hr, Administer over 1 Hours, ONCE, On 04/19/21 at 1839, For 1 dose 2143 (New Bag - Provider: Sayra Engel RN)2255 (Stopped - Provider: Sayra Engel RN) 0.9 % sodium chloride bolus (COMPLETED) 1,000 mL (14.7 mL/kg), IntraVENous, at 1,000 mL/hr, Administer over 1 Hours, ONCE, On 04/19/21 at 1839, For 1 dose 1937 (New Bag - Provider: Sayra Engel RN)2142 (Stopped - Provider: Sayra Engel RN) baclofen (LIORESAL) tablet 10 mg 10 mg, Oral, DAILY, First dose on Tue04/20/21 at 0900 0904 (Given - Provider: Naldo Nagel, OLGA) 0914 (Given - Provider: Yesica Saldaña, RN) budesonide (PULMICORT) nebulizer suspension 500 mcg 500 mcg (0.5 mg), Nebulization, 2 TIMES DAILY, First dose on Tue04/21/21 at 0800, Rinse mouth out with water (without swallowing) after every dose. 0946 (Given - Provider: Isabel Montano RCP)1999 (Due) dexamethasone (PF) (DECADRON) injection 6 mg (COMPLETED) 6 mg, IntraVENous, ONCE, On Tue04/19/21 at 2059, For 1 dose 2138 (Given - Provider: Sayra Engel RN) enoxaparin (LOVENOX) injection 30 mg 30 mg, SubCUTAneous, 2 TIMES DAILY, First dose on Tue04/20/21 at 0900 0904 (Given - Provider: Naldo Nagel RN)2213 (Given - Provider: Jenni Jimenez RN) 912 (Given - Provider: Yesica Saldaña, OLGA)2099 (Due) ibuprofen (ADVIL;MOTRIN) tablet 400 mg (COMPLETED) 400 mg, Oral, ONCE, On Tue04/19/21 at 2138, For 1 dose, Do not crush or chew. 2143 (Given - Provider: Sayra Engel RN) ipratropium-albuterol (DUONEB) nebulizer solution 1 ampule 1 ampule, Inhalation, EVERY 4 HOURS WHILE AWAKE, First dose on Tue04/21/21 at 0800 0936 (Given - Provider: Isabel Montano RCP)1315 (Given - Provider: Isabel Montano RCP)174 (Given - Provider: Isabel Montano RCP)1999 (Due) montelukast (SINGULAIR) tablet 10 mg 10 mg, Oral, NIGHTLY, First dose on Tue04/20/21 at 2100 221 (Given - Provider: Jenni Jimenez RN) 2100 (Due) morphine sulfate (PF) injection 4 mg (COMPLETED) 4 mg, IntraVENous, ONCE, On Tue04/19/21 at 1839, For 1 dose, If oral and IV narcotics ordered, use oral first and only use IV if oral is ineffective or cannot take oral. Do Not give oral and IV within 1 hour of each other unless specifically ordered. 1932 (Given - Provider: Sayra Engel, OLGA) ondansetron (ZOFRAN) injection 4 mg (COMPLETED) 4 mg, IntraVENous, ONCE, On Tue04/19/21 at 1839, For 1 dose 1932 (Given - Provider: Sayra Engel RN) oxyCODONE-acetaminophen (PERCOCET) 5-325 MG per tablet 1 tablet 1 tablet, Oral, 2 TIMES DAILY, First dose on Tue04/20/21 at 0108, Maximum dose of acetaminophen is 4000 mg from all sources in 24 hours. 012 (Given - Provider: Sayra Engel RN)09 (Given - Provider: Naldo Nagel RN)2213 (Given - Provider: Jenni Jimenez RN) 912 (Given - Provider: Yesica Saldaña RN)2099 (Due) remdesivir 100 mg in sodium chloride 0.9 % 250 mL IVPB (COMPLETED) 100 mg, IntraVENous, at 500 mL/hr, Administer over 30 Minutes, ONCE, On Tue04/20/21 at 2100, For 1 dose, Flush line with at least 30 mL normal saline after remdesivir infusion is complete. 2214 (New Bag - Provider: Jenni Jimenez RN)2254 (Stopped - Provider: Jenni Jimenez RN) remdesivir 100 mg in sodium chloride 0.9 % 250 mL IVPB 100 mg, IntraVENous, at 500 mL/hr, Administer over 30 Minutes, EVERY 24 HOURS, First dose on Tue04/21/21 at 2100, For 3 doses, Flush line with at least 30 mL normal saline after remdesivir infusion is complete. 1658 (New Bag - Provider: Stephany Ortiz RN)1739 (Stopped - Provider: Stephany Ortiz RN) remdesivir 200 mg in sodium chloride 0.9 % 250 mL IVPB (COMPLETED) 200 mg, IntraVENous, at 500 mL/hr, Administer over 30 Minutes, ONCE, On Tue04/19/21 at 2300, For 1 dose 2255 (New Bag - Provider: Sayra Engel, OLGA)2329 (Stopped - Provider: Sayra Engel RN) sodium chloride flush 0.9 % injection 3 mL (CANCELED) 3 mL, IntraVENous, EVERY 8 HOURS, First dose on Tue04/19/21 at 1839, Flush line with 3-5 mL 1937 (Given - Provider: Sayra Engel RN) sodium chloride flush 0.9 % injection 5-40 mL 5-40 mL, IntraVENous, EVERY 12 HOURS SCHEDULED (2 times per day), First dose on Tue04/20/21 at 0900, For Line Patency: Peripheral IV = 5 mL; Midline or Central Line = 10 mL/lumen. If following IV push medication, administer flush at same rate as the IV push. Flush volume is determined by type of infusion therapy being given. For non-viscous solutions use: Peripheral IV = 5 mL Midline or Central Line = 10 mL/lumen For viscous solutions (i.e. blood components, parenteral nutrition, contrast media, or after obtaining blood sample) use: Peripheral IV = 10 mL Midline or Central Line = 20 mL/lumen 0900 (Due)2255 (Given - Provider: Jenni Jimenez RN) 0914 (Given - Provider: Yesica Saldaña, OLGA)2100 (Due) traZODone (DESYREL) tablet 100 mg 100 mg, Oral, NIGHTLY, First dose on Tue04/20/21 at 0108 0123 (Given - Provider: Sayra Engel RN)2215 (Given - Provider: Jenni Jimenez RN) 2100 (Due) venlafaxine (EFFEXOR XR) extended release capsule 75 mg 75 mg, Oral, DAILY WITH BREAKFAST, First dose on Tue04/20/21 at 0800, Do not crush or break. 0904 (Given - Provider: Naldo Nagel RN) 0914 (Given - Provider: Yesica Saldaña, OLGA) PRN Medication Order 04/19/2021 04/20/2021 04/21/2021 0.9 % sodium chloride bolus 30 mL (0.441 mL/kg), IntraVENous, at 180 mL/hr, Administer over 10 Minutes, PRN, for Remdesivir line flush, Starting on Tue04/20/21 at 0839 0.9 % sodium chloride infusion 25 mL, IntraVENous, at 100 mL/hr, PRN, If patient receiving piggyback infusions without ordered maintenance IV fluids or with frequent/long duration piggyback infusions, Starting on Tue04/20/21 at 0109, Administer at the same rate as the piggyback being infused. acetaminophen (TYLENOL) suppository 650 mg(Linked Group 1) 650 mg, Rectal, EVERY 6 HOURS PRN, Pain Mild (1-3), Fever, For temp greater than 100.4 F (38 C), Starting on 04/19/21 at 2203, Administer if oral route cannot be used. 0524 (See Alternativ e - Provider: Jenni Jimenez RN) acetaminophen (TYLENOL) tablet 650 mg(Linked Group 1) 650 mg, Oral, EVERY 6 HOURS PRN, Pain Mild (1-3), Fever, For temp greater than 100.4 F (38 C), Starting on 04/19/21 at 2203, Maximum dose of acetaminophen is 4000 mg from all sources in 24 hours. 0524 (Given - Provid er: Jenni Jimenez RN) benzonatate (TESSALON) capsule 100 mg 100 mg, Oral, 3 TIMES DAILY PRN, Cough, Starting on Tue04/20/21 at 1731 1756 (Given - Provider: Naldo Nagel RN) 0512 (Given - Provider: Jenni Jimenez RN) ondansetron (ZOFRAN) injection 4 mg(Linked Group 2) 4 mg, IntraVENous, EVERY 6 HOURS PRN, Nausea, Vomiting, Starting on Tue04/20/21 at 0109, Administer if oral route cannot be used. 1213 (See Alternative - Provider: Naldo Nagel, OLGA) ondansetron (ZOFRAN-ODT) disintegrating tablet 4 mg(Linked Group 2) 4 mg, Oral, EVERY 8 HOURS PRN, Nausea, Vomiting, Starting on Tue04/20/21 at 0109 1213 (Given - Provider: Naldo Nagel, OLGA) polyethylene glycol (GLYCOLAX) packet 17 g 17 g, Oral, DAILY PRN, Constipation, Starting on Tue04/20/21 at 0109, First line therapy for constipation sodium chloride flush 0.9 % injection 5-40 mL 5-40 mL, IntraVENous, PRN, Line Care, After every IV line use, Starting on Tue04/20/21 at 0109, For Line Patency: Peripheral IV = 5 mL; Midline or Central Line = 10 mL/lumen. If following IV push medication, administer flush at same rate as the IV push. Flush volume is determined by type of infusion therapy being given. For non-viscous solutions use: Peripheral IV = 5 mL Midline or Central Line = 10 mL/lumen For viscous solutions (i.e. blood components, parenteral nutrition, contrast media, or after obtaining blood sample) use: Peripheral IV = 10 mL Midline or Central Line = 20 mL/lumen Linked Groups Order Group 1: acetaminophen (TYLENOL) tablet 650 mgJump to med 650 mg, Oral, EVERY 6 HOURS PRN, Pain Mild (1-3), Fever, For temp greater than 100.4 F (38 C), Starting on Tue04/19/21 at 2203
Maximum dose of acetaminophen is 4000 mg from all sources in 24 hours.
Or acetaminophen (TYLENOL) suppository 650 mgJump to med 650 mg, Rectal, EVERY 6 HOURS PRN, Pain Mild (1-3), Fever, For temp greater than 100.4 F (38 C), Starting on Tue04/19/21 at 2203
Administer if oral route cannot be used.
Group 2: ondansetron (ZOFRAN-ODT) disintegrating tablet 4 mgJump to med 4 mg, Oral, EVERY 8 HOURS PRN, Nausea, Vomiting, Starting on Tue04/20/21 at 0109 Or ondansetron (ZOFRAN) injection 4 mgJump to med 4 mg, IntraVENous, EVERY 6 HOURS PRN, Nausea, Vomiting, Starting on Tue04/20/21 at 0109
Administer if oral route cannot be used.
Scheduled Medication Order 05/28/2023 05/29/2023 05/30/2023 cephalexin (Keflex) capsule 500 mg (COMPLETED) 500 mg, Oral, Once, On Tue05/30/23 at 2155, For 1 dose, Suspected Indication (Select all that apply): Urinary Tract Infection 2156 (Given - Provid er: Cielo Ayon LPN) Scheduled Medication Order 07/13/2023 07/14/2023 07/15/2023 ibuprofen tablet 600 mg (COMPLETED) 600 mg, Oral, Once, On Tue07/15/23 at 2030, For 1 dose 2038 (Given - Provid er: Shaila Palacios RN) Scheduled Medication Order 10/29/2023 10/30/2023 10/31/2023 ketorolac (Toradol) injection 15 mg (COMPLETED) 15 mg, IntraVENous, Once, On Tue10/31/23 at 1430, For 1 dose 1458 (Given - Provid er: Erica Mendez RN) methylPREDNISolone sod suc (PF) (SOLU-Medrol) 40 MG injection 40 mg (COMPLETED) 40 mg, IntraVENous, Once, On Tue10/31/23 at 1650, For 1 dose 1715 (Given - Provid er: Erica Mendez RN) ondansetron (Zofran) injection 4 mg (COMPLETED) 4 mg, IntraVENous, Once, On Tue10/31/23 at 1430, For 1 dose 1458 (Given - Provid er: Erica Mendez RN) sodium chloride 0.9 % bolus 1,000 mL (COMPLETED) 1,000 mL, IntraVENous, at 1,000 mL/hr, Administer over 1 Hours, Once, On Tue10/31/23 at 1430, For 1 dose 1458 (New Bag - Prov ider: Erica Mendez RN)1719 (Stopped - Provider: Erica Mendez RN) PRN Medication Order 10/29/2023 10/30/2023 10/31/2023 iopamidol (Isovue-370) 76 % injection 75 mL (COMPLETED) 75 mL, IntraVENous, IMG once PRN, contrast, Starting on Tue10/31/23 at 1530, For 1 dose 1556 (Given - Provid er: Teresita Jackson, RT (R)(CT)) Scheduled Medication Order 10/01/2024 10/02/2024 10/03/2024 naproxen (Naprosyn) tablet 500 mg (COMPLETED) 500 mg, Oral, Once, On Tue10/03/24 at 2350, For 1 dose 2358 (Given - Provid er: Sharon Edmonds RN) Care Teams (unrecognized sec tion and content) Director Of Home Care Hospice Relationship Specialty Start Date End Date Moreno Knott [address] [place], [place] [address] PCP - General Internal Medicine 01/28/21 Dr. Hernandez Referring Physician 12/20/19 Team Status: Active Member Role Status Dates Shaila Lea PATTERN PAINTER, PATTERN PAINTER-C Family Provider Active Dr. Moreno Knott MD Primary Care Provider Active Team Status: Inactive Member Role Status Dates Dr. Moreno Knott MD Primary Care Provider Active Hardy Solomon PATTERN PAINTER, PATTERN PAINTER-C Attending Provider, Referring Prov ider Active Director Of Home Care Hospice Relationship Specialty Start Date End Date Moreno Knott MD [address] [place] [address] PCP - General Internal Medicine 02/12/20 Mina Kan MD [address] [place], [place] [id number] [facility] 02/12/20 Director Of Home Care Hospice Relationship Specialty Start Date End Date Moreno Knott MD [address] [place] [address] PCP - General Internal Medicine 02/12/20 Mina Kan MD [address] [place], [place] [id number] [facility] 02/12/20 Director Of Home Care Hospice Relationship Specialty Start Date End Date SonnyMilana mullins [address] [place] [address] PCP - General Family Medicine 01/05/23 Director Of Home Care Hospice Relationship Specialty Start Date End Date SonnyVerónica mullinsh [address] [place] [address] PCP - General Family Medicine 01/05/23 Director Of Home Care Hospice Relationship Specialty Start Date End Date Moreno Knott MD [address] [place] [address] PCP - General Internal Medicine 02/12/20 Mina Kan MD [address] [address] [facility] 02/12/20 Director Of Home Care Hospice Relationship Specialty Start Date End Date Moreno Knott PCP - General 01/28/21 01/04/23 Milana Grace [address] [place] [address] PCP - General Family Medicine 01/05/23 Director Of Home Care Hospice Relationship Specialty Start Date End Date Milana Grace [address] [place] [address] PCP - General Family Medicine 01/05/23 Director Of Home Care Hospice Relationship Specialty Start Date End Date Milana Grace [address] [place] [phone] PCP - General Family Medicine 01/05/23 Director Of Home Care Hospice Relationship Specialty Start Date End Date Milana Grace [address] [place] [phone] PCP - General Family Medicine 01/05/23 Director Of Home Care Hospice Relationship Specialty Start Date End Date Moreno Knott MD [address] [place] [address] PCP - General Internal Medicine 02/12/20 Mina Kan MD [address] [place], [place] [id number] [facility] 02/12/20 Director Of Home Care Hospice Relationship Specialty Start Date End Date Milana Grace [address] [place] [phone] PCP - General Family Medicine 01/05/23 Director Of Home Care Hospice Relationship Specialty Start Date End Date Moreno Knott MD [address] [place] [address] PCP - General Internal Medicine 02/12/20 Mina Kan MD [address] [place], [place] [id number] [facility] 02/12/20 Director Of Home Care Hospice Relationship Specialty Start Date End Date Milana Grace [address] [place] [phone] PCP - General Family Medicine 01/05/23 Director Of Home Care Hospice Relationship Specialty Start Date End Date Milana Grace DO [address] [place], [place] [address] PCP - General Family Medicine 10/24/23 Mina Kan MD [address] [place] [address] [place], [place] [id number] [facility] 02/12/20 Director Of Home Care Hospice Relationship Specialty Start Date End Date Milana Grace DO [address] [place] [address] PCP - General Family Medicine 10/24/23 Mina Kan MD [address] [place] [address] [facility] 02/12/20 Director Of Home Care Hospice Relationship Specialty Start Date End Date Milana Grace DO [address] [place] [address] PCP - General Family Medicine 10/24/23 Mina Kan MD [address] [place] [address] [facility] 02/12/20 Director Of Home Care Hospice Relationship Specialty Start Date End Date Milana Grace DO [address] [place] [address] PCP - General Family Medicine 10/24/23 Mina Kan MD [address] [place] [address] [facility] 02/12/20 Director Of Home Care Hospice Relationship Specialty Start Date End Date Milana Grace DO [address] [place] [address] PCP - General Family Medicine 10/24/23 Mina Kan MD [address] [place] [address] [facility] 02/12/20 Director Of Home Care Hospice Relationship Specialty Start Date End Date Sonny, Milana L, DO [address] [place] [address] PCP - General Family Medicine 10/24/23 Mina Kan MD [address] [place], [place] [id number] [facility] 02/12/20 Director Of Home Care Hospice Relationship Specialty Start Date End Date Milana Grace DO [address] [place] [address] PCP - General Family Medicine 10/24/23 Mina Kan MD [address] [place] [address] [facility] 02/12/20 Director Of Home Care Hospice Relationship Specialty Start Date End Date Milana Grace DO [address] [place] [address] PCP - General Family Medicine 10/24/23 Mina Kan MD [address] [place] [address] [facility] 02/12/20 Director Of Home Care Hospice Relationship Specialty Start Date End Date Milana Grace DO [address] [place] [address] PCP - General Family Medicine 10/24/23 Mina Kan MD [address] [place], [place] [phone] [facility] 02/12/20 Director Of Home Care Hospice Relationship Specialty Start Date End Date Milana Grace DO [address] [place] [address] PCP - General Family Medicine 10/24/23 Mina Kan MD [address] [place] [address] [facility] 02/12/20 Director Of Home Care Hospice Relationship Specialty Start Date End Date Milana Grace DO [address] [place], [place] [address] PCP - General Family Medicine 10/24/23 Mina Kan MD [address] [facility] [address] [place] [address] [facility] 02/12/20 Director Of Home Care Hospice Relationship Specialty Start Date End Date Milana Grace [address] [place] [phone] PCP - General Family Medicine 01/05/23 Director Of Home Care Hospice Relationship Specialty Start Date End Date Milana Grace DO [address] [place] [address] PCP - General Family Medicine 10/24/23 Mina Kan MD [address] [facility] [address] [place], [place] [id number] [facility] 02/12/20 Director Of Home Care Hospice Relationship Specialty Start Date End Date Milana Grace DO [address] [place], [place] [address] PCP - General Family Medicine 10/24/23 Mina Kan MD [address] [place], [place] [phone] [facility] 02/12/20 Director Of Home Care Hospice Relationship Specialty Start Date End Date Milana Grace DO [address] [place], [place] [address] PCP - General Family Medicine 10/24/23 Mina Kan MD [address] [place], [place] [phone] [facility] 02/12/20 Director Of Home Care Hospice Relationship Specialty Start Date End Date Moreno Knott [address] [place] [address] PCP - General 01/28/21 Director Of Home Care Hospice Relationship Specialty Start Date End Date Milana Grace [address] [place], [place] [address] PCP - General Family Medicine 10/24/23 Mina Kan MD [address] [place], [place] [phone] [facility] 02/12/20 Director Of Home Care Hospice Relationship Specialty Start Date End Date Milana Grace DO [address] [place], [place] [address] PCP - General Family Medicine 10/24/23 Mina Kan MD [address] [place], [place] [phone] [facility] 02/12/20 Director Of Home Care Hospice Relationship Specialty Start Date End Date Milana Grace DO [address] [place], [place] [address] PCP - General Family Medicine 10/24/23 Mina Kan MD [address] [place], [place] [phone] [facility] 02/12/20 Director Of Home Care Hospice Relationship Specialty Start Date End Date Milana [place] [address] PCP - General Family Medicine 10/24/23 Mina Kan MD [address] [place] [address] [facility] 02/12/20 Director Of Home Care Hospice Relationship Specialty Start Date End Date Milana Grace DO [address] [place] [address] PCP - General Family Medicine 10/24/23 Mina Kan MD [address] [place] [address] [facility] 02/12/20 Director Of Home Care Hospice Relationship Specialty Start Date End Date Milana Grace DO [address] [place], [place] [address] PCP - General Family Medicine 10/24/23 Mina Kan MD [address] [place] [address] [place], [place] [phone] [facility] 02/12/20 Director Of Home Care Hospice Relationship Specialty Start Date End Date Milana Grace DO [address] [place] [address] PCP - General Family Medicine 10/24/23 Mina Kan MD [address] [place] [address] [place] [address] [facility] 02/12/20 Director Of Home Care Hospice Relationship Specialty Start Date End Date Milana Grace DO [address] [place] [address] PCP - General Family Medicine 10/24/23 Mina Kan MD [address] [place] [address] [facility] 02/12/20 Director [facility] Relationship Specialty Start Date End Date Moreno Knott MD [address] [place] [address] Internal Medicine [facility] [place] [address] PCP - General 09/21/22 Director Of Home Care Hospice Relationship Specialty Start Date End Date Milana Grace DO [address] [place] [address] PCP - General Family Medicine 10/24/23 Mina Kan MD [address] [address] [place], [place] [id number] [facility] 02/12/20 Director Of Home [facility] H[facility] Relationship Specialty Start Date End Date Milana Grace DO [address] [place] [address] PCP - General Family Medicine 10/24/23 Mina Kan MD [address] [facility] [address] [place] [address] [facility] 02/12/20 Goals (unrecognized section and content) Goals may be documented in a n alternate sectionGoals may be documented in an alternate sectionGoals may be documented in an alternate sectionGoals may be documented in an alternate sectionGoals may be documented in an alternate sectionGoals may be documented in an alternate section Source Comments (unrecognize d section and content) In the event this informatio n is protected by the Federal Confidentiality of Alcohol and Drug Abuse Patient Records regulations: The Federal rules restrict any use of the information to criminally investigate or prosecute any alcohol or drug abuse patient.[facility] the event this information is protected by the Federal Confidentiality of Alcohol and Drug Abuse Patient Records regulations: The Federal rules restrict any use of the information to criminally investigate or prosecute any alcohol or drug abuse patient.[facility] CenterIn the event this information is protected by the Federal Confidentiality of Alcohol and Drug Abuse Patient Records regulations: The Federal rules restrict any use of the information to criminally investigate or prosecute any alcohol or drug abuse patient.[facility] CenterIn the event this information is protected by the Federal Confidentiality of Alcohol and Drug Abuse Patient Records regulations: The Federal rules restrict any use of the information to criminally investigate or prosecute any alcohol or drug abuse patient.[facility] CenterIn the event this information is protected by the Federal Confidentiality of Alcohol and Drug Abuse Patient Records regulations: The Federal rules restrict any use of the information to criminally investigate or prosecute any alcohol or drug abuse patient.[facility] CenterIn the event this information is protected by the Federal Confidentiality of Alcohol and Drug Abuse Patient Records regulations: The Federal rules restrict any use of the information to criminally investigate or prosecute any alcohol or drug abuse patient.[facility] CenterIn the event this information is protected by the Federal Confidentiality of Alcohol and Drug Abuse Patient Records regulations: The Federal rules restrict any use of the information to criminally investigate or prosecute any alcohol or drug abuse patient.[facility] CenterIn the event this information is protected by the Federal Confidentiality of Alcohol and Drug Abuse Patient Records regulations: The Federal rules restrict any use of the information to criminally investigate or prosecute any alcohol or drug abuse patient.[facility] CenterIn the event this information is protected by the Federal Confidentiality of Alcohol and Drug Abuse Patient Records regulations: The Federal rules restrict any use of the information to criminally investigate or prosecute any alcohol or drug abuse patient.[facility] CenterIn the event this information is protected by the Federal Confidentiality of Alcohol and Drug Abuse Patient Records regulations: The Federal rules restrict any use of the information to criminally investigate or prosecute any alcohol or drug abuse patient.[facility] CenterIn the event this information is protected by the Federal Confidentiality of Alcohol and Drug Abuse Patient Records regulations: The Federal rules restrict any use of the information to criminally investigate or prosecute any alcohol or drug abuse patient.[facility] CenterIn the event this information is protected by the Federal Confidentiality of Alcohol and Drug Abuse Patient Records regulations: The Federal rules restrict any use of the information to criminally investigate or prosecute any alcohol or drug abuse patient.[facility] CenterIn the event this information is protected by the Federal Confidentiality of Alcohol and Drug Abuse Patient Records regulations: The Federal rules restrict any use of the information to criminally investigate or prosecute any alcohol or drug abuse patient.[facility] CenterIn the event this information is protected by the Federal Confidentiality of Alcohol and Drug Abuse Patient Records regulations: The Federal rules restrict any use of the information to criminally investigate or prosecute any alcohol or drug abuse patient.[facility] CenterIn the event this information is protected by the Federal Confidentiality of Alcohol and Drug Abuse Patient Records regulations: The Federal rules restrict any use of the information to criminally investigate or prosecute any alcohol or drug abuse patient.[facility] CenterIn the event this information is protected by the Federal Confidentiality of Alcohol and Drug Abuse Patient Records regulations: The Federal rules restrict any use of the information to criminally investigate or prosecute any alcohol or drug abuse patient.[facility] CenterIn the event this information is protected by the Federal Confidentiality of Alcohol and Drug Abuse Patient Records regulations: The Federal rules restrict any use of the information to criminally investigate or prosecute any alcohol or drug abuse patient.[facility] CenterIn the event this information is protected by the Federal Confidentiality of Alcohol and Drug Abuse Patient Records regulations: The Federal rules restrict any use of the information to criminally investigate or prosecute any alcohol or drug abuse patient.[facility] CenterIn the event this information is protected by the Federal Confidentiality of Alcohol and Drug Abuse Patient Records regulations: The Federal rules restrict any use of the information to criminally investigate or prosecute any alcohol or drug abuse patient.[facility] CenterIn the event this information is protected by the Federal Confidentiality of Alcohol and Drug Abuse Patient Records regulations: The Federal rules restrict any use of the information to criminally investigate or prosecute any alcohol or drug abuse patient.[facility] CenterIn the event this information is protected by the Federal Confidentiality of Alcohol and Drug Abuse Patient Records regulations: The Federal rules restrict any use of the information to criminally investigate or prosecute any alcohol or drug abuse patient.[facility] CenterIn the event this information is protected by the Federal Confidentiality of Alcohol and Drug Abuse Patient Records regulations: The Federal rules restrict any use of the information to criminally investigate or prosecute any alcohol or drug abuse patient.[facility] CenterIn the event this information is protected by the Federal Confidentiality of Alcohol and Drug Abuse Patient Records regulations: The Federal rules restrict any use of the information to criminally investigate or prosecute any alcohol or drug abuse patient.[facility] CenterIn the event this information is protected by the Federal Confidentiality of Alcohol and Drug Abuse Patient Records regulations: The Federal rules restrict any use of the information to criminally investigate or prosecute any alcohol or drug abuse patient.[facility] CenterIn the event this information is protected by the Federal Confidentiality of Alcohol and Drug Abuse Patient Records regulations: The Federal rules restrict any use of the information to criminally investigate or prosecute any alcohol or drug abuse patient.[facility] CenterIn the event this information is protected by the Federal Confidentiality of Alcohol and Drug Abuse Patient Records regulations: The Federal rules restrict any use of the information to criminally investigate or prosecute any alcohol or drug abuse patient.[facility] CenterIn the event this information is protected by the Federal Confidentiality of Alcohol and Drug Abuse Patient Records regulations: The Federal rules restrict any use of the information to criminally investigate or prosecute any alcohol or drug abuse patient.[facility] CenterIn the event this information is protected by the Federal Confidentiality of Alcohol and Drug Abuse Patient Records regulations: The Federal rules restrict any use of the information to criminally investigate or prosecute any alcohol or drug abuse patient.[facility] CenterIn the event this information is protected by the Federal Confidentiality of Alcohol and Drug Abuse Patient Records regulations: The Federal rules restrict any use of the information to criminally investigate or prosecute any alcohol or drug abuse patient.[facility] CenterIn the event this information is protected by the Federal Confidentiality of Alcohol and Drug Abuse Patient Records regulations: The Federal rules restrict any use of the information to criminally investigate or prosecute any alcohol or drug abuse patient.[facility] CenterIn the event this information is protected by the Federal Confidentiality of Alcohol and Drug Abuse Patient Records regulations: The Federal rules restrict any use of the information to criminally investigate or prosecute any alcohol or drug abuse patient.[facility] CenterIn the event this information is protected by the Federal Confidentiality of Alcohol and Drug Abuse Patient Records regulations: The Federal rules restrict any use of the information to criminally investigate or prosecute any alcohol or drug abuse patient.[facility] CenterIn the event this information is protected by the Federal Confidentiality of Alcohol and Drug Abuse Patient Records regulations: The Federal rules restrict any use of the information to criminally investigate or prosecute any alcohol or drug abuse patient.[facility] CenterIn the event this information is protected by the Federal Confidentiality of Alcohol and Drug Abuse Patient Records regulations: The Federal rules restrict any use of the information to criminally investigate or prosecute any alcohol or drug abuse patient.[facility] CenterIn the event this information is protected by the Federal Confidentiality of Alcohol and Drug Abuse Patient Records regulations: The Federal rules restrict any use of the information to criminally investigate or prosecute any alcohol or drug abuse patient.[facility] FOR RECORDS PERTAINING TO PATIENTS WHO ARE OR HAVE BEEN ENROLLED IN A CHEMICAL DEPENDENCY/SUBSTANCEABUSE PROGRAM, SOME INFORMATION MAY BE OMITTED. This clinical summary was aggregated from multiple sources. Caution should be exercised in using it in the provision of clinical care. This summary normalizes information from multiple sources, and as a consequence, information in this document may materially change the coding, format and clinical context of patient data. In addition, data may be omitted in some cases. CLINICAL DECISIONS SHOULD BE BASED ON THE PRIMARY CLINICAL RECORDS. [facility]. provides no warranty or guarantee of the accuracy or completeness of information in this document.
[2025-03-25] MEDS: Lactated Ringers 1,000 ML 15 ML IV (07:50)
--- NOTE | 2025-03-25 07:55 | PCM.PRE.AN2 ---
ASA Classification* ASA Classification ASA Classification: 2 Assessment & Plan Anesthesia* Anesthesia Assessment Anesthesia Assessment: Discussed sedation and/or anesthesia options, risks, benefits, and alternatives with patient/parents/legal guardian/POA. Questions invited. The patient/parents/legal guardian/POA seems to understand and agrees to proceed with anesthesia plan. Reviewed the physical assessment, medical history, allergy history and patient home medications list prior to surgery/procedure/anesthetic and documented any changes. Performed airway and anesthesia risk assessments. Anesthesia Type Anesthesia Type: MAC Anesthesia Focused Assessment* Temperature: 97.5 F Pulse Rate: 74 Blood Pressure: 133/75 Respiratory Rate: 12 Pulse Ox: 98 Airway Assessment Mouth opens: >3 cm Mallampati Score: II Labs Anesthesia Preop lab: CBC WBC, (4.4-11.0) 9.2 K/mm3 03/26/22, 11:56 RBC, (4.2-5.4) 4.71 M/mm3 03/26/22, 11:56 Hgb, (12.0-15.0) 14.1 g/dL 03/26/22, 11:56 Hct, (37-47) 41.9 % 03/26/22, 11:56 Plt Count, (150-450) 347 K/mm3 03/26/22, 11:56 CHEMISTRY Potassium, (3.5-5.1) 4.0 mmol/L 03/26/22, 11:56 Sodium, (136-145) 141 mmol/L 03/26/22, 11:56 BUN, (7-18) 10 mg/dL 03/26/22, 11:56 Creatinine, (0.55-1.02) 0.80 mg/dL 03/26/22, 11:56 Glucose, (74-106) 102 mg/dL 03/26/22, 11:56 TSH, (0.358-3.74) 0.59 uIU/mL 03/26/22, 11:56 COAG Pre-Assessment Diagnosis/Proposed Procedure Planned Operative Procedure(s): RIGHT SHOULDER INTRA ARTICULAR STEROID INJ UNDER FLOUROSCOPY Anesthesia History Anesthesia History - shank sorter: Anesthesia History - shank sorter Hx Hospitalization No 03/22/25 11:23 Any Problems With Anesthesia No 03/22/25 11:23 Cholinesterase deficiency No 03/22/25 11:23 You/Your Family Experience No 03/22/25 11:23 fever (hyperthermia) with Relationship Recent Exposure to Contagious No 03/25/25 07:47 Disease Does patient have nerve No 03/22/25 11:23 stimulator Patient instructed to have device shut off --Does patient have Pacemaker No 03/25/25 07:47 or ICD? When Was Last Pacemaker Check QUESTION #4 FULL TEXT: You/Your Family Experience fever (hyperthermia) with Anesthesia Last Oral Intake Last Oral intake: Last Oral Intake NPO since 20:30 03/25/25 07:47 Meds taken in AM with sips of water? Meds patient instructed to take am of surgery PONV PONV - shank sorter: PONV - shank sorter Female Yes 03/22/25 11:23 HX of Motion Sickness Yes 03/22/25 11:23 HX of N/V After Surgery No 03/22/25 11:23 Non-Smoker Yes 03/22/25 11:23 Duration of Surgery greater No 03/22/25 11:23 than 60 minutes Number of Risk Factors 3 03/22/25 11:23 PONV Score Moderate Risk 03/22/25 11:23 Height & Weight Height & Weight: Anesthesia: Height & Weight Height 5 ft 6 in 03/25/25 07:47 Weight: 72 kg 03/25/25 07:47 Body Mass Index (BMI) 25.6 03/25/25 07:47 Respiratory Assessment Respiratory Assessment - shank sorter: Respiratory Tract Infection Hx - shank sorter Hx Respiratory Tract Infection No 03/22/25 11:23 STOP Sleep Apnea STOP Sleep Apnea - shank sorter: STOP Sleep Apnea - shank sorter Hx Hypertension No 03/22/25 11:23 Hx Sleep Apnea Yes 03/22/25 11:23 CPAP Yes: USES PRN 03/22/25 11:23 BIPAP No 03/22/25 11:23 Do you snore loudly (louder than talking or can be heard Do you often feel tired/ fatigued/ sleepy during daytime? Has anyone observed you stop breathing during sleep? STOP Results Positive 03/22/25 11:23 QUESTION #5 FULL TEXT : Do you snore loudly (louder than talking or can be heard through closed doors)? 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 Specify any problems Hx of Preganancy in last 3 No 03/22/25 11:23 Months Nurse Filling Out Transfusion VCHRISTIN 03/22/25 11:23 & Questions: Date: 03/22/25 03/22/25 11:23 Time: 11:24 03/22/25 11:23 Patient unable to answer at this time (ie. confused, unrespo /Reproduction History /Reproductive History - shank sorter: /Reproductive Hx- shank sorter Hx Now No 03/22/25 11:23 Gestational Age (in weeks): EDC: Hx Hx Para Hx Section SAB No 03/22/25 11:23 Active Medications Active Medications: Current Medications Generic Name Dose Route Start Last Admin Trade Name Freq PRN Reason Stop Dose Admin Lactated Ringer's 1,000 mls @ 15 mls/hr 03/25/25 07:30 03/25/25 07:50 IV 15 mls/hr .Q48H EMMETT Administration PFSH Medical History CPAP (continuous positive airway pressure) dependence Sleep apnea Cervical pain (neck) Cervical lesion Wears glasses Post-menopausal Pulmonary embolism DVT (deep venous thrombosis) Migraine headache Back pain Injury of head and neck Ulcerative colitis History of Crohn's disease Former smoker Anxiety and depression Tachycardia Dyspareunia in female Bilateral hip pain COVID Hip pain Screening for thyroid disorder Peripheral edema Edema Sinusitis URI (upper respiratory infection) Insomnia Hot flashes due to menopause Blood clot embolism during , antepartum Asthma IBS (irritable bowel syndrome) Allergies Home Medications Medication Instructions Recorded Last Taken Type albuterol sulfate 90 mcg/actuation See Rx Instructions .Route 08/05/20 Unknown Rx aerosol inhaler .COMPLEX ##8.5 trazodone 100 mg tablet See Rx Instructions .Route 11/26/22 03/24/25 Rx .COMPLEX #90 TABLETS venlafaxine 75 mg capsule,extended See Rx Instructions .Route 11/26/22 03/24/25 Rx release 24 hr .COMPLEX #90 caps montelukast 10 mg tablet See Rx Instructions .Route 05/16/23 03/24/25 Rx .COMPLEX #60 tabs risankizumab-rzaa 60 mg/mL 600 mg IV .Q8 WEEKS 03/26/24 03/22/25 History intravenous solution (Skyrizi) Allergy/AdvReac Type Severity Reaction Status Date / Time codeine Allergy Mild upset Verified 03/25/25 07:46 stomach adalimumab (From Humira) Allergy Rash Verified 03/25/25 07:46 gadoterate meglumine (From Allergy Rash Verified 03/25/25 07:46 Dotarem) ustekinumab (From Stelara) Allergy Shortness Verified 03/25/25 07:46 of breath Family History Sister Breast cancer Grandfather Colon cancer Grandmother Breast cancer Father Heart disease Hypertension Mother Heart disease Hypertension Surgical History Hx of surgical procedure Hx of section Hx of hysterectomy Hx of surgical procedure History of breast lump removal Hx of surgical procedure History of hysterectomy rt shoulder surgery c section Breast lump in female Social History Smoking Status: Former smoker quit date: 06/06/99 alcohol intake: never substance use type: does not use what type of physical activity do you participate in: none Review of Systems (Anesthesia) ROS Narrative System reviewed and no additional complaints, except as documented.
--- NOTE | 2025-03-25 08:20 | RAD_ITS ---
PROCEDURE: FLUORO GUIDED NEEDLE PLACEMENT 03/25/2025 REASON FOR EXAM: SHOULDER INJECTION INTRA ARTICULAR RIGHT TECHNIQUE: Procedure Code: RADFGN Modality: DX Procedure: FLUORO GUIDED NEEDLE PLACEMENT. Intraoperative fluoroscopic services provided for right shoulder injection. Radiation dose: 0.47 mGy. Fluoroscopy: 3.3 seconds. 2 images were submitted. COMPARISON: None FINDINGS: Fluoroscopic services provided for right shoulder injection RAD/Fluoro Guided Needle Placement IMPRESSION: Fluoroscopic services provided for right shoulder injection. Reading Location: [facility]
[2025-03-25] MEDS: Lidocaine 1% (5 ml sdv) 5 ML Vial (08:25)
--- NOTE | 2025-03-25 08:35 | PCM.OPRPT ---
Operative Report (Standard) Operative Information Date of Procedure: 03/25/25 Pre-Operative Diagnosis: Right shoulder rotator cuff injury Post-Operative Diagnosis: Right shoulder rotator cuff injury Surgery/Procedure Performed: Right shoulder intra-articular steroid injection under fluoroscopic guidance. temple meat cutter: No Type of Anesthesia: Local MAC RN Documented Start/Stop Times: Operation Date: 03/25/25 09:20 Case Time Into Pre-Op 03/25/25 07:27 Anesthesia Start 03/25/25 08:26 Into Room 03/25/25 08:26 Procedure Start 03/25/25 08:32 Procedure End 03/25/25 08:35 Procedure Start Time: 08:36 Procedure Stop Time: 08:36 Select all DRAINS/GRAFTS/IMPLANTS that apply: None Estimated Blood Loss: 1 Specimen collected: No Description of surgery: PREOPERATIVE DIAGNOSIS: Right shoulder rotator cuff injury. POSTOPERATIVE DIAGNOSIS: Right shoulder rotator cuff injury PROCEDURE PERFORMED: Right shoulder intra-articular steroid injection under fluoroscopic guidance. ANESTHESIA: MAC. BLOOD LOSS: Minimal. COMPLICATIONS: None. DESCRIPTION OF PROCEDURE: History and physical of today was reviewed. Risks and benefits of the procedure were explained. The patient understood and agreed to proceed. Informed consent was obtained. IV inserted per routine protocol. The patient was taken to the operating room and placed in the supine position. The right shoulder area was prepped and draped in a sterile fashion using iodine x3. Under fluoroscopic guidance on AP view, the right shoulder joint was visualized. The skin and subcutaneous tissue was anesthetized with approximately 1 mL of 1% lidocaine using a 25-gauge regular needle at the anterior shoulder joint area. Under direct visualization with fluoroscopy on AP view, using a 22-gauge 3-1/2-inch spinal needle, the needle was advanced via the skin directed towards the intraarticular position at the supraspinatus level. Once the tip of the needle was at the vicinity of the shoulder joint, after negative aspiration for blood, positive aspiration for synovial fluid, a total of 1 mL of contrast was injected to confirm correct placement of the needle as well as anterior and posterior spread of the contrast at the shoulder joint and the subacromial bursa. Halo spread as well was visualized through the arthrogram. After confirmation on AP as well as oblique view and repeated negative aspiration for blood, a total of 4 mL of preservative-free 0.25% Marcaine with 40 mg of Depo-Medrol was injected easily. The needle was then removed intact. The patient experienced no sign or symptoms of intravascular injection. The patient experienced no paresthesia. The procedure was completed without any apparent difficulty or any complications. The patient appeared to tolerate it well. Assessment and plan: This is a 54-year-old female with right shoulder rotator cuff injury status post right shoulder intra-articular steroid injection under fluoroscopic guidance, patient will continue her current medications, patient will follow approximately 2 weeks for reevaluation. Surgical Findings: 0 Complications Complications: No Admit VTE Documentation VTE Present on Admission: No VTE Mechan Device Prophylaxis: None VTE Pharm Prophylaxis ordered?: No
--- NOTE | 2025-03-25 08:35 | PCM.POST.ANE ---
Anesthesia: Postop Eval I Current Vital Signs Temperature: 97.2 F Pulse Rate: 87 Blood Pressure: 146/90 Respiratory Rate: 18 Pulse Ox: 98 Assessment Airway patent: Yes Spontaneous unlabored respirations: Yes nausea: No Vomiting: No Anesthesia Complication: No Fluid Hydration Crystalloid volume administer (ml): 100 Total IV fluid infused: 100 Progress Note Anesthesia document: Postop Eval 1 completed: Yes
--- NOTE | 2025-03-25 12:03 | POSTOPAN2_ITS ---
Anesthesia Postop Eval I Sum Postop Eval Completion status Anesthesia document: Postop Eval 1 completed: Yes Anesthesia Postop Eval I Summary Anesthesia Postop Eval I Summary: Anesthesia Postop Eval I: Assessment Summary Airway patent Yes 03/25/25 08:35 KETTLE LOADER.[email or web address] Spontaneous unlabored Yes 03/25/25 08:35 KETTLE LOADER.CSIR respirations Mental status nausea No 03/25/25 08:35 KETTLE LOADER.CSIR Vomiting No 03/25/25 08:35 KETTLE LOADER.CSIR Anesthesia Postop Eval I: Fluid Summary Crystalloid volume administer 100 03/25/25 08:35 KETTLE LOADER.CSIR (ml) Colloids volume administered ( ml) Blood Product volume administered (ml) Total IV fluid infused 100 03/25/25 08:35 KETTLE LOADER.CSIR Anesthesia Postop Eval I: Summary Notes Anesthesia Complication No 03/25/25 08:35 KETTLE LOADER.CSIR Anesthesia Complication Comment: Post-operative progress note Anesthesia: Postop Eval II Evaluation Mental status: Awake Pain Level: 1 nausea: No Vomiting: No
--- NOTE | 2025-03-25 12:03 | PCM.POSTANE2 ---
Anesthesia Postop Eval I Sum Postop Eval Completion status Anesthesia document: Postop Eval 1 completed: Yes Anesthesia Postop Eval I Summary Anesthesia Postop Eval I Summary: Anesthesia Postop Eval I: Assessment Summary Airway patent Yes 03/25/25 08:35 COMBINATION SAW OPERATOR.CSIR Spontaneous unlabored Yes 03/25/25 08:35 COMBINATION SAW OPERATOR.CSIR respirations Mental status nausea No 03/25/25 08:35 COMBINATION SAW OPERATOR.CSIR Vomiting No 03/25/25 08:35 COMBINATION SAW OPERATOR.CSIR Anesthesia Postop Eval I: Fluid Summary Crystalloid volume administer 100 03/25/25 08:35 COMBINATION SAW OPERATOR.CSIR (ml) Colloids volume administered ( ml) Blood Product volume administered (ml) Total IV fluid infused 100 03/25/25 08:35 COMBINATION SAW OPERATOR.CSIR Anesthesia Postop Eval I: Summary Notes Anesthesia Complication No 03/25/25 08:35 COMBINATION SAW OPERATOR.CSIR Anesthesia Complication Comment: Post-operative progress note Anesthesia: Postop Eval II Evaluation Mental status: Awake Pain Level: 1 nausea: No Vomiting: No
== END 2025-03-25 09:16 | disposition home or self-care (01) ==
LOC: SDC 07:18 → AC 07:19
PROVIDERS: PCP Family Medicine; Referring Provider Anesthesiology Pain Medicine; Visit Provider Anesthesiology Pain Medicine
PROC: 3E0U3GC Introduction of Other Therapeutic Substance into Joints, Percutaneous Approach (ICD-10-PCS; CPT 20610; principal; 2025-03-25 09:15)
DX: S46.001A Unspecified injury of muscle(s) and tendon(s) of the rotator cuff of right shoulder, initial encounter (principal); G54.0 Brachial plexus disorders; M19.111 Post-traumatic osteoarthritis, right shoulder; M25.311 Other instability, right shoulder; M75.01 Adhesive capsulitis of right shoulder; J45.909 Unspecified asthma, uncomplicated; Z79.82 Long term (current) use of aspirin; Z79.899 Other long term (current) drug therapy; Z87.891 Personal history of nicotine dependence
CPT/HCPCS: 20610; 01620; 76000; 77002; J2405